=== PATIENT | female | born 1960 | race Hispanic/Latino ===

== ENCOUNTER 2021-11-09 13:51 | Inpatient (IN) | payer SELFPAY ==
--- NOTE | 2021-11-09 15:34 | RAD REPORT ---
EXAM DESCRIPTION: [place] Single View11/09/2021 3:22 pm CLINICAL HISTORY: Chest pain COMPARISON: 2007 FINDINGS: The upper lobe vessels are prominent indicative of pulmonary venous hypertension An area of subsegmental atelectasis mid left lung. The remainder of the lungs appear clear of acute infiltrate The heart is mildly enlarged
[2021-11-09] MEDS ORDERED: ASPIRIN 81 MG CHEWABLE TABLET ONE ×2 (15:40→16:04)
[2021-11-09 16:08] LABS: Protime INR 1.05
[2021-11-09 16:10] LABS: Absolute Lymphocytes (CBC) 1.6 K/uL (0.7-4.9); Hematocrit 32.4 % (36.0-45.0); Lymphocytes % 20.3 % (15.3-44.8); MCV 93.2 fL (80-100); MPV 8.6 fL (7.6-11.3); RBC Red Blood Cell Count 3.48 M/uL (3.86-4.86)
[2021-11-09 16:22] LABS: ALT/SGPT 18 U/L (12-78); AST/SGOT 11 U/L (15-37); Albumin 2.7 g/dL (3.4-5.0); Alkaline Phosphatase 146 U/L (45-117); BUN Blood Urea Nitrogen 60 mg/dL (7-18); Bicarbonate 24 mmol/L (21-32); Bilirubin Direct < 0.1 mg/dL (0-0.2); Bilirubin Total 0.3 mg/dL (0.2-1.0); Glomerular Filtration Rate 13 ml/min (=/>90); Glucose Level 237 mg/dL (74-106); Magnesium 2.4 mg/dL (1.8-2.4); NT PRO-BNP 15944 pg/mL (<125); Potassium 4.1 mmol/L (3.5-5.1); Protein, Total 6.9 g/dL (6.4-8.2); Sodium Level 137 mmol/L (136-145); Troponin High Sensitivity 25.5 pg/mL (<58.9)
--- NOTE | 2021-11-09 16:56 | EDPHYS ---
Physician Documentation [facility] Name: Magalis Haywood Age: 61 yrs Sex: Female : 1960 Arrival Date: 11/09/2021 Time: 13:53 Bed 10 Private MD: ED Physician Gen Nichols HPI: 11/09 14:20 This 61 yrs old Female presents to ER via Ambulatory with complaints of High jh7 Blood Pressure,chest pain, SOB, Shoulder Pain. 14:20 61-year-old female presents with left shoulder pain, intermittent chest pain, and jh7 shortness of breath progressing over the past week. The patient denies any heart problems, but says that she was told that her kidney function was at 11% in April and now takes Lasix. Also reports that she takes amlodipine and metoprolol for hypertension.. Historical: - Allergies: 14:17 No Known Allergies; tp1 - Home Meds: 14:17 insulin [Active]; amlodipine oral [Active]; Metaproterenol Sulfate Oral [Active]; tp1 - PMHx: 14:17 Diabetes mellitus; Hypertensive disorder; renal disease; tp1 - Immunization history:: Client reports receiving the 2nd dose of the Covid vaccine. - Social history:: Smoking status: Patient denies any tobacco usage or history of. ROS: 14:20 Constitutional: Negative for fever, chills, and weight loss, ENT: Negative for injury, jh7 pain, and discharge, Neck: Negative for injury, pain, and swelling, Abdomen/GI: Negative for abdominal pain, nausea, vomiting, diarrhea, and constipation, Back: Negative for injury and pain, Skin: Negative for injury, rash, and discoloration, Neuro: Negative for headache, weakness, numbness, tingling, and seizure. 14:20 Cardiovascular: Positive for chest pain. 14:20 Cardiovascular: Negative for palpitations. 14:20 Respiratory: Positive for 14:20 Respiratory: Positive for shortness of breath, Negative for cough. 14:20 MS/extremity: Positive for pain, Negative for injury or acute deformity. 14:20 All other systems are negative. Exam: 14:20 Constitutional: This is a well developed, well nourished patient who is awake, alert, jh7 and in no acute distress. Neck: Trachea midline, no thyromegaly or masses palpated, and no cervical lymphadenopathy. Supple, full range of motion without nuchal rigidity, or vertebral point tenderness. No Meningismus. Cardiovascular: Regular rate and rhythm with a normal S1 and S2. No gallops, murmurs, or rubs. Normal PMI, no JVD. No pulse deficits. Respiratory: Lungs have equal breath sounds bilaterally, clear to auscultation and percussion. No rales, rhonchi or wheezes noted. No increased work of breathing, no retractions or nasal flaring. Abdomen/GI: Soft, non-tender, with normal bowel sounds. No distension or tympany. No guarding or rebound. No evidence of tenderness throughout. Back: No spinal tenderness. No costovertebral tenderness. Full range of motion. Skin: Warm, dry with normal turgor. Normal color with no rashes, no lesions, and no evidence of cellulitis. Neuro: Awake and alert, GCS 15, oriented to person, place, time, and situation. Motor strength 5/5 in all extremities. Sensory grossly intact. Normal gait. Vital Signs: 14:17 BP 142 / 51; Pulse 66; Resp 16; Temp 98.1; Pulse Ox 100% on R/A; Weight 83.91 kg; Pain tp1 8/10; 15:59 BP 139 / 70; Pulse 66; Resp 18; Pulse Ox 97% on R/A; ld1 16:55 BP 137 / 67; Pulse 66; Resp 20; Pulse Ox 95% on R/A; eh3 17:41 BP 146 / 69; Pulse 63; Resp 18; Pulse Ox 95% on R/A; ld1 MDM: 15:33 Patient medically screened. [facility] 16:00 Differential diagnosis: CHF, acute VA, chronic renal failure. Data reviewed: vital [facility] signs, nurses notes, lab test result(s), EKG, radiologic studies, plain films. Data interpreted: Pulse oximetry: is 95 %. Interpretation: normal. Counseling: I had a detailed discussion with the patient and/or guardian regarding: the historical points, exam findings, and any diagnostic results supporting the discharge/admit diagnosis, the need for further work-up and treatment in the hospital. 16:00 ED course: Reviewed the patient's lab and imaging findings. Informed her that she would [facility] be admitted. Answered all questions discussed. Discussed case with Dr. Hawkins and nurse practitioner Antonio Villa. The patient will be admitted inpatient status.. 11/09 14:47 Order name: Basic Metabolic Panel; Complete Time: 16:40 [facility] 11/09 14:47 Order name: CBC with Diff; Complete Time: 16:40 [facility] 11/09 14:47 Order name: LFT's; Complete Time: 16:40 [facility] 11/09 14:47 Order name: Magnesium; Complete Time: 16:40 [facility] 11/09 14:47 Order name: NT PRO-BNP; Complete Time: 16:40 [facility] 11/09 14:47 Order name: PT-INR; Complete Time: 16:40 [facility] 11/09 14:47 Order name: Troponin HS; Complete Time: 16:40 [facility] 11/09 14:47 Order name: XRAY Chest (1 view); Complete Time: 15:47 [facility] 11/09 14:47 Order name: EKG; Complete Time: 14:48 [facility] 11/09 14:47 Order name: Cardiac monitoring; Complete Time: 15:56 [facility] 11/09 14:47 Order name: EKG - Nurse/Tech; Complete Time: 15:56 [facility] 11/09 14:47 Order name: IV Saline Lock; Complete Time: 15:56 [facility] 11/09 17:07 Order name: COVID-19 SARS RT PCR (Document "Date of Onset" if Symptomatic); Complete ss Time: 19:00 11/09 14:47 Order name: Labs collected and sent; Complete Time: 15:56 [facility] 11/09 14:47 Order name: O2 Per Protocol; Complete Time: 15:31 [facility] 11/09 14:47 Order name: O2 Sat Monitoring; Complete Time: 15:33 [facility] EC:44 Rhythm is regular. VA interval is normal. QRS interval is normal. No Q waves. T waves [facility] are Inverted in leads V4, V5, V6. Clinical impression: NSR w/ Non-specific ST/T Changes. Administered Medications: 15:22 Drug: Aspirin Chewable Tablet 324 mg Route: PO; 3 16:57 Follow up: Response: No adverse reaction 3 Disposition: 22:23 Co-signature as Attending Physician, Gen MCCANN was immediately available on-site ms3 in the Emergency Department for consultation in the care of the patient. . 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
--- NOTE | 2021-11-09 16:56 | ER ---
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 Visited clinic last week and today for should pain, while there clinic attempted to draw blood but was unsuccessful. clinic did not address shoulder pain due to inability to draw blood. stated blood work was needed for kidney function. Coronavirus screen: Vaccine status: Patient reports receiving the 2nd dose of the covid vaccine. Ebola Screen: Patient denies exposure to infectious person. Patient denies travel to an Ebola-affected area in the 21 days before illness onset. Initial Sepsis Screen: Does the patient meet any 2 criteria? No. Patient's initial sepsis screen is negative. Does the patient have a suspected source of infection? No. Patient's initial sepsis screen is negative. Risk Assessment: Do you want to hurt yourself or someone else? Patient reports no desire to harm self or others. Onset of symptoms was November 02, 2021. 14:11 Method Of Arrival: Ambulatory tp1 14:11 Acuity: MEI 4 tp1 14:17 Chief complaint:. tp1 Triage Assessment: 14:17 General: Appears in no apparent distress. uncomfortable, Behavior is calm, cooperative. tp1 Pain: Complains of pain in left side of neck and left shoulder Pain currently is 8 out of 10 on a pain scale. Quality of pain is described as sharp, Pain began a week. 14:21 Cardiovascular: Patient's skin is warm and dry. Chest pain is denied. Respiratory: tp1 Airway is patent Respiratory effort is even, unlabored. Historical: - Allergies: 14:17 No Known Allergies; tp1 - Home Meds: 14:17 insulin [Active]; amlodipine oral [Active]; Metaproterenol Sulfate Oral [Active]; tp1 - PMHx: 14:17 Diabetes mellitus; Hypertensive disorder; renal disease; tp1 - Immunization history:: Client reports receiving the 2nd dose of the Covid vaccine. - Social history:: Smoking status: Patient denies any tobacco usage or history of. Screenin:58 Abuse screen: Denies threats or abuse. Denies injuries from another. Nutritional ld1 screening: No deficits noted. Tuberculosis screening: No symptoms or risk factors identified. Fall Risk None identified. Assessment: 15:58 General: Appears in no apparent distress. comfortable, Behavior is calm, cooperative, ld1 appropriate for age. Pain: Complains of pain in left scapular area and anterior aspect of left upper chest Pain does not radiate. Pain currently is 6 out of 10 on a pain scale. Quality of pain is described as pressure, throbbing, Pain began 3 hours ago. Is intermittent. Neuro: Level of Consciousness is awake, alert, obeys commands, Oriented to person, place, time, situation. Cardiovascular: Capillary refill < 3 seconds Patient's skin is warm and dry. Rhythm is sinus rhythm. Respiratory: Airway is patent Respiratory effort is even, unlabored. GI: Abdomen is round non-distended. : No signs and/or symptoms were reported regarding the genitourinary system. EENT: No signs and/or symptoms were reported regarding the EENT system. Derm: No signs and/or symptoms reported regarding the dermatologic system. Musculoskeletal: No signs and/or symptoms reported regarding the musculoskeletal system. Vital Signs: 14:17 BP 142 / 51; Pulse 66; Resp 16; Temp 98.1; Pulse Ox 100% on R/A; Weight 83.91 kg; Pain tp1 8/10; 15:59 BP 139 / 70; Pulse 66; Resp 18; Pulse Ox 97% on R/A; ld1 16:55 BP 137 / 67; Pulse 66; Resp 20; Pulse Ox 95% on R/A; eh3 17:41 BP 146 / 69; Pulse 63; Resp 18; Pulse Ox 95% on R/A; ld1 ED Course: 13:53 Patient arrived in ED. mr 14:17 Triage completed. tp1 14:19 Charissa Shah FNP is PHCP. jh7 14:19 Gen Nichols DO is Attending Physician. jh7 15:24 XRAY Chest (1 view) In Process Unspecified. EDMS 15:33 Kia Mayorga is Primary Nurse. eh3 15:56 Inserted saline lock: 20 gauge in right upper arm, using aseptic technique. Blood eh3 collected. 15:58 No provider procedures requiring assistance completed. ld1 15:58 Patient has correct armband on for positive identification. Placed in gown. Bed in low ld1 position. Call light in reach. Side rails up X2. alarm security or surveillance monitor on. Pulse ox on. NIBP on. Door closed. Noise minimized. Warm blanket given. 16:54 Thai Amos MD is Hospitalizing Provider. [facility] 17:44 COVID-19 SARS RT PCR (Document "Date of Onset" if Symptomatic) Sent. ld1 20:59 Patient admitted, IV remains in place. ld1 20:59 Arm band placed on right wrist. ld1 Administered Medications: 15:22 Drug: Aspirin Chewable Tablet 324 mg Route: PO; eh3 16:57 Follow up: Response: No adverse reaction eh3 Medication: 15:58 VIS not applicable for this client. ld1 Outcome: 16:55 Decision to Hospitalize by Provider. jh7 20:58 Admitted to Med/surg accompanied by tech, via wheelchair, room 205. ld1 20:58 Condition: stable 20:58 Discharge instructions given to patient, Instructed on the need for admit. 21:25 Patient left the ED. ld1 Signatures: Dispatcher [employer] DUNIAHI SkinnerGloria blanco Lauren, RN RN ld1 Juli Brown tp1 Kia Mayorga eh3 Charissa Shah, [employer] SPECIALIST 7 Corrections: (The following items were deleted from the chart) 14:20 14:11 Chief complaint: Patient states: sharp pain in right side of neck that radiates tp1 to should that started 1 week ago. Visited clinic last week and today for should pain, while there clinic attempted to draw blood but was unsuccessful. tp1 14:22 14:11 Chief complaint: Patient states: sharp pain in right side of neck that radiates tp1 to should that started 1 week ago. Visited clinic last week and today for should pain, while there clinic attempted to draw blood but was unsuccessful. clinic did not address shoulder pain due to inability to draw blood. stated blood work was needed for kidney function. tp1
--- NOTE | 2021-11-09 20:08 | P.HP ---
Certification for Inpatient Patient admitted to: Inpatient With expected LOS: >2 Midnights Patient will require the following post-hospital care: None Practitioner: I am a practitioner with admitting privileges, knowledge of patient current condition, hospital course, and medical plan of care. Services: Services provided to patient in accordance with Admission requirements found in Title 42 Section 412.3 of the Code of Federal Regulations <Antonio Villa - Last Filed: 11/09/21 20:03> Patient History Date of Service: 11/09/21 Reason for admission: Chest pain, CHF History of Present Illness: 61-year-old female with history of CKD, hypertension presented to the emergency department for left-sided chest/back pain, shortness of breath. She reports that she has been having intermittent sharp pain to her left chest wall/left back for the last 4 to 5 days as well as some intermittent shortness of breath. She reports knowing that she has chronic kidney disease but is unaware of her baseline renal function we have no labs available for comparison here but she did report that she thinks her kidneys function at "about 11%". Patient does not follow with nephrology outpatient, she was evaluated by a physician in [place] for chronic kidney disease. She reports that in April she was placed on Lasix twice daily at an unknown dose for "fluid in her lungs". She denies ever knowing about the diagnosis of congestive heart failure or any cardiac issues. She was evaluated in the emergency department her labs were significant for a creatinine of 3.88 a GFR of 13 glucose 237 BUN of 60 her BNP was significantly elevated at 15,944 chest x-ray demonstrates that the upper lobe vessels are prominent indicative of pulmonary venous hypertension, also an area of subsegmental atelectasis in the left midlung, mild cardiomegaly. Patient with mild nonpitting edema of lower extremities she does report that she has noticed an increase in swelling over the course of the last few days. ED provider wishes to admit for further evaluation and management of suspected CHF exacerbation/chest pain/CKD versus ARF/JUAN. - Past Medical/Surgical History -: CKD -: Hypertension -: Diabetes type 2insulin-dependent -: Appendectomy -: Cholecystectomy -: Psychosocial/ Personal History: Patient lives at home with her family - Family History Father -: Hypertension - Social History Smoking Status: Never smoker Alcohol use: No CD- Drugs: No Caffeine use: Yes Place of Residence: Home <Antonio Villa - Last Filed: 11/09/21 20:03> Date of Service: 11/10/21 <Thai Amos - Last Filed: 11/10/21 16:21> Review of Systems 10-point ROS is otherwise unremarkable Respiratory: Shortness of Breath Cardiovascular: Chest Pain, Edema, As per HPI <Antonio Villa - Last Filed: 11/09/21 20:03> Physical Examination - Physical Exam General: Alert, In no apparent distress, Oriented x3 HEENT: Atraumatic, PERRLA, Mucous membr. moist/pink, EOMI, Sclerae nonicteric Neck: Supple, 2+ carotid pulse no bruit, No LAD, Without JVD or thyroid abnormality Respiratory: Normal air movement, Diminished Cardiovascular: Regular rate/rhythm, Normal S1 S2, Edema (Trace edema lower extremities) Capillary refill: <2 Seconds Gastrointestinal: Normal bowel sounds, No tenderness Musculoskeletal: No tenderness Integumentary: No rashes Neurological: Normal speech, Normal strength at 5/5 x4 extr, Normal tone, Normal affect - Studies Laboratory Data (last 24 hrs) 11/09/21 15:55: PT 11.6, INR 1.05 11/09/21 15:55: WBC 7.9, Hgb 11.1 L, Hct 32.4 L, Plt Count 229 11/09/21 15:55: Sodium 137, Potassium 4.1, BUN 60 H, Creatinine 3.88 H, Glucose 237 H, Magnesium 2.4, Total Bilirubin 0.3, AST 11 L, ALT 18, Alkaline Phosphatase 146 H <Antonio Villa - Last Filed: 11/09/21 20:03> - Studies Laboratory Data (last 24 hrs) 11/09/21 15:55: Sodium 137, Potassium 4.1, BUN 60 H, Creatinine 3.88 H, Glucose 237 H, Magnesium 2.4, Total Bilirubin 0.3, AST 11 L, ALT 18, Alkaline Phosphatase 146 H <Thai Amos - Last Filed: 11/10/21 16:21> Assessment and Plan - Plan Assessment: Chest pain rule out ACS Suspected CHF exacerbationunknown EF CKD 5 versus ARF/JUAN Diabetes mellitus type 2insulin-dependent Hypertension Plan: Chest pain rule out ACS: Trend troponins, monitor on telemetry, echocardiogram ordered to evaluate EF given suspected CHF exacerbation/elevated BNP/cardiomegaly on chest x-ray. Cardiology consulted. Continue with aspirin, statin, beta-yasmine therapy. Suspected CHF exacerbationunknown EF: Echocardiogram ordered, cardiology consulted continue with gentle diuresis at this time. CKD 5 versus ARF/JUAN: Nephrology consulted, renal ultrasound to be obtained, no labs available for comparison but patient reports that her kidney function was " 11%". She denies any NSAID use or recent antibiotic/contrast exposure. Appreciate further input from nephrology. Diabetes mellitus type 2insulin-dependent: ACH S Accu-Chek, sliding scale insulin, restart patient's home dose of insulin when confirmed. Hypertension: Continue home medications, patient takes amlodipine and metoprolol but she is unaware of the doses. We will need to confirm when available. DVT PPX: Heparin Code status: Full Discharge Plan: Home Plan to discharge in: 48 Hours - Advance Directives Does patient have a Living Will: No Does patient have a Durable POA for Healthcare: No - Code Status/Comfort Care Code Status Assessed: Yes (Full code) Critical Care: No Time Spent Managing Pts Care (In Minutes): 70 <Antonio Villa - Last Filed: 11/09/21 20:03> Physician Review Additional Text: I have personally seen and evaluated Ms. Marcella Haywood. I reviewed the notes and assessments performed by Antonio Villa NP. I independently performed my own history and physical examination. I agree with the assessment and plan as outlined in his note. I concur with his documentation of Ms. Haywood. <Thai Amos - Last Filed: 11/10/21 16:21>
[2021-11-09] MEDS ORDERED: HYDROCODONE/APAP 5/325 MG TAB PO PRN (21:32)
[2021-11-09] MEDS ORDERED: ONDANSETRON 4 MG/2 ML VIAL IV PRN (21:32)
[2021-11-09] MEDS: INSULIN -REGULAR HUMAN 50 UNIT/0.5 ML ML SQ SCH (21:32)
[2021-11-09] MEDS ORDERED: ACETAMINOPHEN 500 MG TAB PO PRN (21:32)
--- NOTE | 2021-11-09 22:24 | P.CNS ---
Date of Consult: 11/09/21 Reason for Consult: JUAN/ CKD Requesting Physician: Thai Amos Chief Complaint: Chest pain, CHF History of Present Illness: 61-year-old female with history of CKD, hypertension presented to the emergency department for left-sided chest/back pain, shortness of breath. She reports that she has been having intermittent sharp pain to her left chest wall/left back for the last 4 to 5 days as well as some intermittent shortness of breath. She reports knowing that she has chronic kidney disease but is unaware of her baseline renal function we have no labs available for comparison here but she did report that she thinks her kidneys function at "about 11%". Patient does not follow with nephrology outpatient, she was evaluated by a physician in [place] for chronic kidney disease. She reports that in April she was placed on Lasix twice daily at an unknown dose for "fluid in her lungs". She denies ever knowing about the diagnosis of congestive heart failure or any cardiac issues. She was evaluated in the emergency department her labs were significant for a creatinine of 3.88 a GFR of 13 glucose 237 BUN of 60 her BNP was significantly elevated at 15,944 chest x-ray demonstrates that the upper lobe vessels are prominent indicative of pulmonary venous hypertension, also an area of subsegmental atelectasis in the left midlung, mild cardiomegaly. Patient with mild nonpitting edema of lower extremities she does report that she has noticed an increase in swelling over the course of the last few days. ED provider wishes to admit for further evaluation and management of suspected CHF exacerbation/chest pain/CKD versus ARF/JUAN. She reports being told by a physician in [place] that she may need dialysis soon. She denies NSAIDs or any difficulty with urination. 14:20 This 61 yrs old Female presents to ER via Ambulatory with complaints of High jh7 Blood Pressure,chest pain, SOB, Shoulder Pain. 14:20 61-year-old female presents with left shoulder pain, intermittent chest pain, and jh7 shortness of breath progressing over the past week. The patient denies any heart problems, but says that she was told that her kidney function was at 11% in April and now takes Lasix. Also reports that she takes amlodipine and metoprolol for hypertension.. Allergies No Known Allergies Allergy (Verified 11/09/21 22:46) Home Medications: Amlodipine [Norvasc] 5 mg PO BID 11/09/21 Furosemide 40 mg PO BID 11/09/21 Insulin Glargine,Hum.rec.anlog [Lantus] 22 unit SQ BEDTIME 11/09/21 Metoprolol Tartrate 100 mg PO BID 11/09/21 - Past Medical/Surgical History -: CKD -: Hypertension -: Diabetes type 2insulin-dependent -: Appendectomy -: Cholecystectomy -: Psychosocial/ Personal History: Patient lives at home with her family - Family History Father Medical History: Hypertension - Social History Alcohol use: No CD- Drugs: No Caffeine use: Yes Place of Residence: Home Review of Systems 10-point ROS is otherwise unremarkable General: Weakness Respiratory: SOB with Excertion Physical Examination Temp Pulse Resp BP Pulse Ox 97.4 F 70 16 140/67 92 11/09/21 22:13 11/09/21 22:13 11/09/21 22:13 11/09/21 22:13 11/09/21 22:13 General: In no apparent distress, Oriented x3, Cooperative HEENT: Atraumatic Neck: Supple Respiratory: Normal air movement Cardiovascular: No edema, Regular rate/rhythm Gastrointestinal: Soft and benign, Non-distended Musculoskeletal: No clubbing, No contractures Integumentary: No rashes, No cyanosis Neurological: Normal speech Laboratory Data (last 24 hrs) 11/09/21 15:55: PT 11.6, INR 1.05 11/09/21 15:55: WBC 7.9, Hgb 11.1 L, Hct 32.4 L, Plt Count 229 11/09/21 15:55: Sodium 137, Potassium 4.1, BUN 60 H, Creatinine 3.88 H, Glucose 237 H, Magnesium 2.4, Total Bilirubin 0.3, AST 11 L, ALT 18, Alkaline Phosphatase 146 H Imagings Data: EXAM DESCRIPTION: [place] Single View11/09/2021 3:22 pm CLINICAL HISTORY: Chest pain COMPARISON: 2007 FINDINGS: The upper lobe vessels are prominent indicative of pulmonary venous hypertension An area of subsegmental atelectasis mid left lung. The remainder of the lungs appear clear of acute infiltrate The heart is mildly enlarged LEFT VENTRICULAR WALL MOTION: MILD GLOBAL HYPOKINESIS. ANTERIOR WALL HYPOKINESIS. DOPPLER/COLOR FLOW: SEE BELOW COMMENTS: MILDLY DEPRESSED LEFT VENTRICULAR EJECTION FRACTION 40-45%. MILD ANTERIOR WALL HYPOKINESIS. LEFT ATRIAL ENLARGEMENT. MILD TRICUSPID AND MITRAL REGURGITATION. MODERATE PULMONARY REGURGITATION. MODERATE DIASTOLIC DYSFUNCTION. EXAM DESCRIPTION: US - Renal Ultrasound-Complete - 11/10/2021 12:36 am CLINICAL HISTORY: Acute renal failure/chronic renal failure COMPARISON: None. FINDINGS: The right kidney measures 10 cm with a normal echotexture The left kidney measures 10 cm with a normal echotexture Hydronephrosis is not seen. 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 No uremic symptoms. -May benefit from JUAN ANTONIO/ARB due to proteinuria HTN with CKD/ CHF -Increase Amlodipine -Continue Metoprolol -Consider JUAN ANTONIO/ARB therapy Systolic Diastolic CHF, A/C Pulmonary HTN -Continue Furosemide BID -Echocardiogram reviewed DM II with CKD A1C 7.5 -RISS Moderate malnutrition -Renal diet Anemia in chronic illness -Monitor H&H -Retacrit PRN CKD MBD -Start Vitamin D Thank you kindly for the referral.
[2021-11-09] MEDS: HEPARIN 5000 UNIT/ML 1 ML VIAL SQ SCH (22:29)
[2021-11-09] MEDS: ATORVASTATIN 40 MG TAB PO SCH (22:29)
[2021-11-09 23:17] LABS: UR PROTEIN 304.8 mg/dL (<11.9); Urine Protein/Creatinine Ratio 12.19 ratio (<0.15)
[2021-11-09 23:20] LABS: Specific Gravity 1.015 (1.005-1.030); Urine Bilirubin Negative (Negative); Urine Blood 1+ (Negative); Urine Clarity Clear (Clear); Urine Color Yellow (Yellow); Urine Glucose Trace (Negative); Urine Protein 3+ (Negative); Urine Urobilinogen 0.2 mg/dL (0.2-1.0); Urine pH 6.5 (5.0-7.0)
[2021-11-09 23:50] LABS: Urine Bacteria <20 /HPF (<20); Urine RBC <5 /HPF (None Seen)
[2021-11-10] MEDS: METOPROLOL TAR 25 MG TAB PO SCH ×2 (05:39→16:53)
[2021-11-10 05:44] LABS: Absolute Lymphocytes (CBC) 1.3 K/uL (0.7-4.9); Hematocrit 33.3 % (36.0-45.0); Lymphocytes % 15.4 % (15.3-44.8); MPV 8.8 fL (7.6-11.3); RBC Red Blood Cell Count 3.54 M/uL (3.86-4.86)
[2021-11-10 05:47] VITALS: BMI 34.8
[2021-11-10 06:07] LABS: Albumin 2.6 g/dL (3.4-5.0); Bilirubin Total 0.3 mg/dL (0.2-1.0); Phosphorus 5.2 mg/dL (2.5-4.9); Potassium 4.2 mmol/L (3.5-5.1); Protein, Total 6.7 g/dL (6.4-8.2); Thyroid Stimulating Hormone 2.13 uIU/mL (0.360-3.740); Troponin High Sensitivity 22.4 pg/mL (<58.9); Uric Acid 8.7 mg/dL (2.6-6.0)
[2021-11-10] MEDS: INSULIN -REGULAR HUMAN 50 UNIT/0.5 ML ML SQ SCH ×4 (07:30→20:43)
--- NOTE | 2021-11-10 07:49 | RAD REPORT ---
EXAM DESCRIPTION: US - Renal Ultrasound-Complete - 11/10/2021 12:36 am CLINICAL HISTORY: Acute renal failure/chronic renal failure COMPARISON: None. FINDINGS: The right kidney measures 10 cm with a normal echotexture The left kidney measures 10 cm with a normal echotexture Hydronephrosis is not seen. No gross abnormality of bladder is noted IMPRESSION: Negative for hydronephrosis
--- NOTE | 2021-11-10 08:16 | EKG ---
Test Date: 2021-11-09 Test Time: 15:38:19 White Hat Hacker: MADDY MEASUREMENT RESULTS: Intervals: Rate: 67 MT: 162 QRSD: 102 QT: 430 QTc: 454 [place]: P: 42 MT: 162 QRS: -37 T: 232 INTERPRETIVE STATEMENTS: Normal sinus rhythm Left axis deviation Minimal voltage criteria for LVH, may be normal variant ST & T wave abnormality, consider inferolateral ischemia Abnormal ECG No previous ECG available for comparison Electronically Signed On 11-10-21 08:12:42 CDT by Mauro Mckee
[2021-11-10] MEDS ORDERED: AMLODIPINE 5 MG TAB PO SCH (09:00)
[2021-11-10] MEDS: FUROSEMIDE 20 MG/ 2ML VIAL IV SCH ×2 (09:43→16:43)
[2021-11-10] MEDS: VITAMIN D 5,000 UNIT CAP PO SCH (09:43)
[2021-11-10] MEDS: ASPIRIN EC 81 MG TAB PO SCH (09:43)
[2021-11-10] MEDS: DOCUSATE NA 100 MG CAP PO SCH ×2 (09:43→20:42)
[2021-11-10] MEDS: HEPARIN 5000 UNIT/ML 1 ML VIAL SQ SCH ×2 (09:44→20:42)
--- NOTE | 2021-11-10 14:19 | ECHO ---
HEIGHT: 5 ft 1 in WEIGHT: 184 lb 3.2 oz DATE OF STUDY: 11/10/[address]: Antonio Villa NP 2-DIMENSIONAL: YES M.MODE: YES DOPPLER: YES COLOR FLOW: YES TDS: NO PORTABLE: YES DEFINITY: NO BUBBLE STUDY: NO DIAGNOSIS: CONGESTIVE HEART FAILURE CARDIAC HISTORY: CATHERIZATION: SURGERY: PROSTHETIC VALVE: PACEMAKER: MEASUREMENTS (cm) DIASTOLIC (NORMALS) SYSTOLIC (NORMALS) IVSd 1.0 (0.6-1.2) LA Diam 4.1 (1.9-4.0) LVEF 45% LVIDd 6.6 (3.5-5.7) LVIDs 5.0 (2.0-3.5) %FS 24% LVPWd 1.1 (0.6-1.2) Ao Diam 2.5 (2.0-3.7) 2 DIMENSIONAL ASSESSMENT: RIGHT ATRIUM: NORMAL LEFT ATRIUM: ENLARGED RIGHT VENTRICLE: NORMAL LEFT VENTRICLE: SEVERELY DILATED TRICUSPID VALVE: MITRAL VALVE: PULMONIC VALVE: AORTIC VALVE: NORMAL PERICARDIAL EFFUSION: NONE AORTIC ROOT: NORMAL LEFT VENTRICULAR WALL MOTION: MILD GLOBAL HYPOKINESIS. ANTERIOR WALL HYPOKINESIS. DOPPLER/COLOR FLOW: SEE BELOW COMMENTS: MILDLY DEPRESSED LEFT VENTRICULAR EJECTION FRACTION 40-45%. MILD ANTERIOR WALL HYPOKINESIS. LEFT ATRIAL ENLARGEMENT. MILD TRICUSPID AND MITRAL REGURGITATION. MODERATE PULMONARY REGURGITATION. MODERATE DIASTOLIC DYSFUNCTION. TECHNOLOGIST: Joy CARDENAS
--- NOTE | 2021-11-10 16:27 | P.PN ---
Subjective Date of Service: 11/10/21 Chief Complaint: Chest pain, CHF Ms. Marcella Haywood is Bolivian-speaking only. The following history was obtained with the assistance of [employer] certified [place]-Citizen Of [place] rn neonatal icu, Mili Alex CarlotnMili, (ID# [id number]). No acute events since admission. She reports that she feels okay overall. She endorses generalized weakness. Her chest pain has improved since admission. She denies any specific complaints at this time. Review of Systems General: Weakness Eyes: Unremarkable ENT: Unremarkable Respiratory: Unremarkable Cardiovascular: Unremarkable Gastrointestinal: Unremarkable Genitourinary: Unremarkable Musculoskeletal: Unremarkable Integumentary: Unremarkable Neurological: Unremarkable Physical Examination - Vital Signs Temperature: 97.2 F Blood Pressure: 182/79 Pulse: 75 Respirations: 18 Pulse Ox (%): 93 - Physical Exam General: Alert, In no apparent distress, Oriented x3 HEENT: Atraumatic, Mucous membr. moist/pink, EOMI, Sclerae nonicteric Neck: Supple, JVD not distended Respiratory: Clear to auscultation bilaterally, Normal air movement, Diminished Cardiovascular: Regular rate/rhythm, Normal S1 S2, No gallops, No rubs, No murmurs Gastrointestinal: Normal bowel sounds, Soft and benign, Non-distended, No tenderness, No rebound, No guarding Musculoskeletal: No clubbing Integumentary: No rashes Neurological: Normal gait, Normal affect - Studies Laboratory Data (last 24 hrs) 11/09/21 15:55: Sodium 137, Potassium 4.1, BUN 60 H, Creatinine 3.88 H, Glucose 237 H, Magnesium 2.4, Total Bilirubin 0.3, AST 11 L, ALT 18, Alkaline Phosphatase 146 H Medications List Reviewed: Yes Assessment And Plan - Plan # Acute Decompensated Combined Systolic/Diastolic Congestive Heart Failure with Reduced Ejection Fraction (LVEF 40-45 %) # Pulmonary Hypertension # Moderate Pulmonary Regurgitation - Consult Cardiology and spoke with Dr. Mckee - recommendations appreciated - Transthoracic echocardiogram = "mildly depressed left ventricular ejection fraction 40-45%. mild anterior wall hypokinesis. left atrial enlargement. mild tricuspid and mitral regurgitation. moderate pulmonary regurgitation. moderate diastolic dysfunction." - Diuresis with IV furosemide for today - EKG: currently unavailable - review once available - Serial troponin: 25.5 -> 23.7 -> 22.4 - NT-Pro BNP: 15,944 - CXR: "the upper lobe vessels are prominent indicative of pulmonary venous hypertension. An area of subsegmental atelectasis mid left lung. The remainder of the lungs appear clear of acute infiltrate. The heart is mildly enlarged." - Continue home metoprolol - Daily weights - Strict I/O - Cardiac diet, 2 L fluid restriction, 2 g Na restriction # Elevated Creatinine - Acute Kidney Injury vs Chronic Kidney Disease Stage V - Nephrology consulted - recommendations appreciated - Creatinine = 3.88 (baseline creatinine unknown) - Urinalysis = 1+ blood, 3+ protein, <5 RBCs - Renal ultrasound = "negative for hydronephrosis" - Monitor creatinine and urine output - Renally dose medications # Hyperglycemia in Type II Diabetes Mellitus - Hgb A1c = 7.5 % - Correction scale insulin # Hypertension - Continue metoprolol, amlodipine, furosemide Thai Amos MD Discharge Plan: Home Plan to discharge in: Unknown
[2021-11-10] MEDS: ATORVASTATIN 40 MG TAB PO SCH (20:43)
[2021-11-10 22:44] VITALS: O2SAT 96
[2021-11-11 05:50] LABS: Absolute Lymphocytes (CBC) 1.4 K/uL (0.7-4.9); Hematocrit 32.7 % (36.0-45.0); Lymphocytes % 16.6 % (15.3-44.8); MCV 93.1 fL (80-100); MPV 9.1 fL (7.6-11.3); RBC Red Blood Cell Count 3.51 M/uL (3.86-4.86)
[2021-11-11] MEDS: METOPROLOL TAR 25 MG TAB PO SCH (05:57)
[2021-11-11 06:09] LABS: Albumin 2.8 g/dL (3.4-5.0); Bilirubin Total 0.4 mg/dL (0.2-1.0); Potassium 3.9 mmol/L (3.5-5.1); Protein, Total 6.8 g/dL (6.4-8.2)
[2021-11-11] MEDS: INSULIN -REGULAR HUMAN 50 UNIT/0.5 ML ML SQ SCH ×2 (07:30→11:30)
[2021-11-11] MEDS ORDERED: HYDRALAZINE HCL 25 MG TABLET PO SCH (09:00)
[2021-11-11] MEDS: HEPARIN 5000 UNIT/ML 1 ML VIAL SQ SCH (09:00)
[2021-11-11] MEDS: VITAMIN D 5,000 UNIT CAP PO SCH (09:00)
[2021-11-11] MEDS: DOCUSATE NA 100 MG CAP PO SCH (09:00)
[2021-11-11] MEDS: FUROSEMIDE 20 MG/ 2ML VIAL IV SCH (09:00)
[2021-11-11] MEDS ORDERED: AMLODIPINE 10 MG TAB PO SCH (09:00)
[2021-11-11] MEDS: ASPIRIN EC 81 MG TAB PO SCH (09:00)
--- NOTE | 2021-11-11 09:49 | CON ---
Date of Consultation: 11/10/2021 Reason For Consultation: Congestive heart failure, chest pain, and hypertension. History Of Present Illness: Ms. Haywood is 61, non-Greenlandic speaking. Has a history of diabetes, hype rtension, and coronary artery disease in the past. She came in really mostly with shortness of breat h. She did have some shortness of breath with exertion. Denied any PND, orthopnea, and had some ped al edema. Denied any palpitation. Denied any syncope. Her chest pain was described as tightness. Had no nausea, vomiting, diaphoresis. Denied any fever or chills. Past Medical History: As stated above. Allergies: NONE. Review of Systems: Negative. Social History: Negative. Family History: Noncontributory. Medications: At home include Lasix 40 mg b.i.d., amlodipine, metoprolol, insulin. Physical Examination: General: She appears to be very pleasant, in no acute distress. Vital Signs: Stable. She was afebrile. She was in sinus rhythm. HEENT: Negative. Neck: Supple without any bruit, lymphadenopathy, JVD, or thyromegaly. Chest: Reveals some rales in both bases. Cardiac: Revealed a regular rhythm and rate with S4 gallops. No murmurs or rubs. Abdomen: Benign. Extremities: Revealed 1+ edema to the knee. Diagnostic Data: Creatinine 3.75. BNP was 15,944. Troponin was negative. Glucose was 117. Impression And Plan: Acute congestive heart failure, most likely diastolic. Echocardiogram is pendi ng. Patient presently is on Norvasc, aspirin, Lipitor, Lasix, heparin, and metoprolol and I agree wi th that regimen. She is not a candidate for JUAN ANTONIO inhibitors. We will see what her echo shows before making decision. She will need an outpatient Lexiscan eventually to rule out coronary artery disease . Her diabetes is fairly well controlled. Blood pressure has improved since she has been here. Her main problem, I believe, is the kidneys. Nephrology is involved in her care. I will continue to fo flip. MICHELA/PATTIE Voice ID: [id number] Report ID: [id number]
--- NOTE | 2021-11-11 10:49 | P.PN ---
Date of Service: 11/11/21 (S) Spoke to pt using Albanian language line, case discussed with Dr. Amos who was also at bedside, discharge meds and plans for f/u discussed in detail. Pt has no acute complaints General: In no apparent distress, Oriented x3, Cooperative HEENT: Atraumatic Neck: Supple Respiratory: Normal air movement, b/l air entry Cardiovascular: No edema, Regular rate/rhythm Gastrointestinal: Soft and benign, Non-distended Musculoskeletal: No clubbing, No contractures Integumentary: No rashes, No cyanosis Neurological: Normal speech, non focal Labs reviewed in EMR Imagings Data: EXAM DESCRIPTION: US - Renal Ultrasound-Complete - 11/10/2021 12:36 am CLINICAL HISTORY: Acute renal failure/chronic renal failure COMPARISON: None. FINDINGS: The right kidney measures 10 cm with a normal echotexture The left kidney measures 10 cm with a normal echotexture Hydronephrosis is not seen. No gross abnormality of bladder is noted IMPRESSION: Negative for hydronephrosis Conclusions/Impression: Probable progressive CKD CKD V with proteinuria likely 2nd to DM nephropathy, with heavy proteinuria there can sometime be superimposed ARF due to ATN Nephrotic Syndrome -Renal US reviewed -No urgent indication for HD yet, but will need close OP fu -May benefit from JUAN ANTONIO/ARB to delay onset of HD but will assess that as an OP HTN with CKD/ CHF -Increased Amlodipine, added Hydralazine -Continue Metoprolol -Target BP < 130/80 per KDIGO Systolic Diastolic CHF, A/C Pulmonary HTN -Continue Furosemide, switch to PO -Echocardiogram reviewed Dagoberto Cotto MD, [facility]
[2021-11-11 11:49] LABS: Urine Bilirubin Negative (Negative); Urine Blood 1+ (Negative); Urine Clarity Clear (Clear); Urine Color Yellow (Yellow); Urine Glucose 1+ (Negative); Urine Protein 3+ (Negative); Urine Urobilinogen 0.2 mg/dL (0.2-1.0)
--- NOTE | 2021-11-11 12:03 | P.DS ---
Admission Date: 11/09/21 Discharge Date: 11/11/21 Disposition: ROUTINE DISCHARGE Discharge Condition: GOOD Reason for Admission: Chest pain, CHF Consultations: 1. Nephrology 2. Cardiology Hospital Course: DIAGNOSES: # Acute Decompensated Combined Systolic/Diastolic Congestive Heart Failure with Reduced Ejection Fraction (LVEF 40-45 %) # Pulmonary Hypertension # Moderate Pulmonary Regurgitation # Chronic Kidney Disease Stage V # Hyperglycemia in Type II Diabetes Mellitus # Hypertension HOSPITAL COURSE: Ms. Marcella Haywood is Israeli-speaking only. The following discharge instructions were communicated with the assistance of [employer] certified Israeli-Armenian interpreter deaf, Mili Melyssa, (ID# [id number]). Ms. Marcella Haywood is a pleasant 61 year old female with a past medical history significant for chronic congestive heart failure with reduced ejection fraction, chronic kidney disease stage V, type II diabetes mellitus, and hypertension who was admitted to the [facility] on 11/09/2021 for chest/back pain and shortness of breath. Upon evaluation, her lab studies were notable for a creatinine of 3.88 and a NTPro BNP of 15,944. She was found to be in acute congestive heart failure exacerbation. Cardiology and Nephrology were consulted on her case. Further evaluation was notable for serial troponin of 25.5 -> 23.7 -> 22.4 and a chest x-ray noting, "the upper lobe vessels are prominent indicative of pulmonary venous hypertension. An area of subsegmental atelectasis mid left lung. The remainder of the lungs appear clear of acute infiltrate. The heart is mildly enlarged." A transthoracic echocardiogram revealed, "mildly depressed left ventricular ejection fraction 40-45%. mild anterior wall hypokinesis. left atrial enlargement. mild tricuspid and mitral regurgitation. moderate pulmonary regurgitation. moderate diastolic dysfunction." In regards to her kidneys, she head a renal ultrasound, which was "negative for hydronephrosis." She was treated with IV furosemide, with significant improvement of her symptoms. Following discussion with Dr. Cotto (Nephrology), it is felt that this creatinine is likely her baseline He feels that she is safe for discharge with prescriptions for furosemide 40 mg daily, hydralazine 25 mg twice daily, amlodipine 10 mg daily, and metoprolol 25 mg twice daily. He recommends a f ollow-up appointment with Dr. Ross in 1 week and provided her with a business card including his office address and phone number. I have also reviewed her case with Dr. Mckee (Cardiology), who agrees that she is safe for discharge. He would like to see her in his clinic in about 1 week to schedule an outpatient stress test +/- cardiac catheterization. Of note, I had a detailed conversation with her regarding the possibility of hemodialysis for volume removal in the setting of her advanced kidney disease. She stated that she is not interested in dialysis at this time. On 11/11/2021, she was seen on morning rounds and deemed medically stable for discharge. She was discharged with instructions to schedule follow-up appointments with her PCP in 3-5 days, cardiology in 1 week, and nephrology in 1 week. She was provided prescriptions for furosemide, hydralazine, amlodipine, and metoprolol. She was given the opportunity to ask questions and reported no further questions. Furthermore, all questions were answered to the best of my ability. Today, I personally spent 40 minutes on her case, of which greater than 50% of the time was spent in patient education, counseling, and coordination of care as described above. PHYSICAL EXAMINATION General: Alert, In no apparent distress, Oriented x3 HEENT: Atraumatic, Mucous membr. moist/pink, EOMI, Sclerae nonicteric Neck: Supple, JVD not distended Respiratory: Clear to auscultation bilaterally, Normal air movement, Diminished Cardiovascular: Regular rate/rhythm, Normal S1 S2, No gallops, No rubs, No murmurs Gastrointestinal: Normal bowel sounds, Soft and benign, Non-distended, No tenderness, No rebound, No guarding Musculoskeletal: No clubbing, Trace bilateral edema Integumentary: No rashes Neurological: Normal gait, Normal affect Vital Signs/Physical Exam: Temp Pulse Resp BP Pulse Ox 97.3 F 70 18 187/80 H 94 11/11/21 08:00 11/11/21 08:00 11/11/21 08:00 11/11/21 08:00 11/11/21 08:00 Laboratory Data at Discharge: WBC 8.2 K/uL (4.3-10.9) 11/11/21 05:30 Hgb 11.0 g/dL (12.0-15.0) L 11/11/21 05:30 Hct 32.7 % (36.0-45.0) L 11/11/21 05:30 Plt Count 232 K/uL (152-406) 11/11/21 05:30 PT 11.6 SECONDS (9.5-12.5) 11/09/21 15:55 INR 1.05 11/09/21 15:55 Sodium 140 mmol/L (136-145) 11/11/21 05:30 Potassium 3.9 mmol/L (3.5-5.1) 11/11/21 05:30 BUN 56 mg/dL (7-18) H 11/11/21 05:30 Creatinine 3.77 mg/dL (0.55-1.3) H 11/11/21 05:30 Glucose 156 mg/dL (74-106) H 11/11/21 05:30 Uric Acid 8.7 mg/dL (2.6-6.0) H 11/10/21 05:23 Phosphorus 5.2 mg/dL (2.5-4.9) H 11/10/21 05:23 Magnesium 2.4 mg/dL (1.8-2.4) 11/09/21 15:55 Total Bilirubin 0.4 mg/dL (0.2-1.0) 11/11/21 05:30 AST 10 U/L (15-37) L 11/11/21 05:30 ALT 14 U/L (12-78) 11/11/21 05:30 Alkaline Phosphatase 138 U/L (45-117) H 11/11/21 05:30 Triglycerides 126 mg/dL (<150) 11/10/21 05:23 Cholesterol 170 mg/dL (<200) 11/10/21 05:23 HDL Cholesterol 51 mg/dL (40-60) 11/10/21 05:23 Cholesterol/HDL Ratio 3.33 11/10/21 05:23 Home Medications: Amlodipine [Norvasc*] 10 mg PO DAILY #30 tab 11/11/21 Atorvastatin Calcium [Lipitor] 40 mg PO BEDTIME #30 tab 11/11/21 Furosemide 40 mg PO DAILY #30 11/11/21 Hydralazine [Apresoline*] 25 mg PO BID #60 tab 11/11/21 Metoprolol Tartrate [Lopressor*] 25 mg PO BID 6AM 6PM #60 tab 11/11/21 New Medications: Hydralazine [Apresoline*] 25 mg PO BID #60 tab Furosemide 40 mg PO DAILY #30 Atorvastatin Calcium [Lipitor] 40 mg PO BEDTIME #30 tab Metoprolol Tartrate [Lopressor*] 25 mg PO BID 6AM 6PM #60 tab Amlodipine [Norvasc*] 10 mg PO DAILY #30 tab Physician Discharge Instructions: 1. Please schedule follow-up appointment with your PCP in 3-5 days. 2. Please schedule follow-up appointment with Nephrology (Dr. Ross) in 1 week. 3. Please schedule follow-up appointment with Cardiology (Dr. Mckee) in 1 week. Diet: Renal Activity: Ad rob Followup: OOT,OOT [Primary Care Provider] - Arthur Ross DO [ACTIVE - CAN ADMIT] - Mauro Mckee MD [ACTIVE - CAN ADMIT] - Time spent managing pt's care (in minutes): 40
[2021-11-11 12:04] LABS: Urine Bacteria <20 /HPF (<20); Urine RBC <5 /HPF (None Seen)
[2021-11-11 12:18] VITALS: BP 171/73; TEMP 97.5
--- NOTE | 2021-11-11 15:47 | PN ---
Date of Progress Note: 11/11/2021 Ms. Haywood has came in with renal failure, congestive heart failure. She has improved and is feeling better. She is not having any chest pain today. She is breathing better. Denied PND, orthopnea, p edal edema. Her examination is fairly unremarkable. Echocardiogram, however, showed an ejection fra ction of 45% with anterior hypokinesis. Her last creatinine is 3.77. I am comfortable with her going home on low-dose Lasix. Continue her home medic ation. I would like to see her in the office very soon. She really needs to have a left heart marisol terization done, but we will have to wait for her renal status to improve. Case was discussed with Karoline Amos. I will see her in the office soon. MICHELA/PATTIE Voice ID: [id number] Report ID: [id number]
--- OUTSIDE RECORDS SUMMARY | 2021-11-12 12:28 | XMS REPORT | Continuity of Care Document ---
:1960 Author Organization [facility] t Address [address] [place] [address] Care Team Providers Name Role Phone PCP, DOES NOT HAVE A Primary Care Physician Unavailable Link ABEL, K.H. Attending Clinician Pob, Lab Main Attending Clinician Unavailable Katarina ABEL Attending Clinician KATARINA Attending Clinician Unavailable Doctor Unassigned, Name Attending Clinician Unavailable Jarett ABEL Attending Clinician Saji MOELLER Attending Clinician SAJI Attending Clinician Unavailable Saji MOELLER Admitting Clinician SAJI Admitting Clinician Unavailable Payers Payer Name Policy Type Policy Number Effective Date Expiration Date S ource Problems Condition Condition Condition Status Onset Resolution Last Treating Co mments Source Name Details Category Date Date Treatment Clinician Date Stage 4 Stage 4 Disease Active Univers chronic chronic 05-01 ity of kidney kidney 00:00: [place] disease disease Medical Branch Essential Essential Disease Active Uni vers hypertensi hypertensi -07 it y of on on 00:00: [place] [address] Medical Branch Acute on Acute on Disease Active Unive rs chronic chronic 07 ity of systolic systolic 00:00: [place] and and Medical diastolic diastolic Bran ch heart heart failure, failure, NYHA class NYHA class 3 3 Dyslipidem Dyslipidem Disease Active U nivers ia ia 1-07 ity of 00:00: [place] [facility] Branch Type 2 Type 2 Disease Active Univers diabetes diabetes 07 ity of mellitus mellitus 00:00: [place] with other with other 00 Me dical specified specified Bran ch complicati complicati on on COVID-19 COVID-19 Disease Active Unive rs 1-06 ity of 00:00: [place] [facility] Branch Obesity Obesity Disease Active Univers (BMI (BMI 1-06 ity of 30-39.9) 30-39.9) 00:00: [place] [facility] LUGO LUGO Disease Active Univers (dyspnea (dyspnea 1-06 ity of on on 00:00: [place] exertion) exertion) 00 [facility] Branch Elevated Elevated Disease Active Unive rs troponin I troponin I 1-06 it y of level level 00:00: [place] [facility] Elevated Elevated Disease Active Unive rs brain brain 1-06 ity of natriureti natriureti 00:00: [facility] c peptide c peptide 00 [facility] (BNP) (BNP) Branch level level Allergies, Adverse Reactions, Alerts Allergy Allergy Status Severity Reaction(s) Onset Inactive Treating Comm ents Source Name Type Date Date Clinician NO KNOWN Drug Active Univers ALLERGIE Class ity of S [facility] Social History Social Habit Start Date Stop Date Quantity Comments Source Exposure to Not sure [facility] SARS-CoV-2 [facility] (event) Branch Alcohol intake 2021-05-01 2021-05-01 Ex-drinker [facility] 00:00:00 00:00:00 (finding) [facility] Sex Ass[birth year] At [birth year] Universit y of 00:00:00 00:00:00 [facility] Smoking Status Start Date Stop Date Source Never smoker [facility] Medications Ordered Filled Start Stop Current Ordering Indication Dosage Frequency Signature Comments Components Source Medication Medication Date Date Medication? Clinician (SIG) Name Name aspirin 81 Yes [id number] 81mg Take 1 Univers mg chewable 05-05 tablet by ity of tablet 00:00: mouth [place] 00 daily. Medical Branch aspirin 81 Yes [id number] 81mg Take 1 Univers mg chewable 05-05 9103 tablet by ity of tablet 00:00: mouth [place] 00 daily. Medical Branch aspirin 81 Yes [id number] 81mg Take 1 Univers mg chewable 05-05 9103 tablet by ity of tablet 00:00: mouth [place] 00 daily. Medical Branch aspirin 81 Yes [id number] 81mg Take 1 Univers mg chewable 05-05 9103 tablet by ity of tablet 00:00: mouth [place] 00 daily. Medical Branch calcitrioL Yes .25ug 0.25 mcg, U nivers (ROCALTROL) 1-10 Oral, Q ity o f capsule 15:00: , [place] 0.25 mcg 00 First dose Medic al on Tue Branch 05/04/21 at 0900, Until Discontinu ed, Routine furosemide 2021- No 40mg Take 40 mg Univers (LASIX) 40 05-04-10 by mouth ity of mg tablet 10:52: 00:00 daily. [place] 58 :00 Medical Branch pantoprazol 2021- No 40mg Take 40 mg Univers e sodium 05-04-10 by mouth ity of (PANTOPRAZO 10:52: 00:00 daily. [place] as LE ORAL) 58 :00 Medical Branch SUCRALFATE 2021- No 1g Take 1 g Un aleksandar ORAL 05-04-10 by mouth ity of 10:52: 00:00 every 8 [place] 58 :00 (eight) Medical hours. Branch metoclopram 2021- No 10mg Take 10 mg Univers yue HCl 05-04-10 by mouth ity of (REGLAN) 10 10:52: 00:00 before [place] mg tablet 58 :00 meals. Medical Take 20 Branch minutes before each meal metoprolol 2021- No 100mg Take 100 U nivers succinate -01 23-10 mg by ity of XL 100 mg 10:52: 00:00 mouth [place] 24 hr 58 :00 daily. Medical tablet Branch telmisartan 2021- No 40mg Take 40 mg Univers 40 mg 05-04-10 by mouth ity of tablet 10:52: 00:00 every 12 [place] 58 :00 (twelve) Medical hours. Branch amLODIPine 2021- No 5mg Take 5 mg U nivers 5 mg tablet 05-04 by mouth ity of 10:52: 00:00 daily. [place] 58 :00 Medical Branch insulin 2021- No 18U inject 18 Univ ers glargine,hu 05-04-10 Units ity of m.rec.anlog 10:52: 00:00 under the [place] (INSULIN 58 :00 skin at Medical GLARGINE bedtime. Branch LA) linaGLIPtin 2021- No 5mg Take 5 mg Univers (TRADJENTA) 05-04 by mouth ity of 5 mg tablet 10:52: 00:00 daily [place] 58 :00 before Medical breakfast. Branch furosemide No 20mg Take 20 mg Univers 20 mg 05-04 by mouth ity of tablet 10:52: 00:00 with [place] 58 :00 lunch. Medical Branch diphenidol No 25mg 25 mg as Un aleksandar HCl 05-04 needed for ity of (DIPHENIDOL 10:52: 00:00 Nausea and [place] , BULK, 58 :00 Vomiting Medical MISC) (N/V). Branch Take one tablet one hour before meals or en case of vomiting docusate Yes 100mg 100 mg, Unive rs (COLACE) 1-10 Oral, BID, ity o f capsule 100 02:00: First dose [place] mg 00 on [facility] 05/03/21 at [place] 1999, Until Discontinu ed, Routine polyethylen Yes 17g 17 g, Unive rs e glycol 1-10 Oral, ity of 3350 powder 01:53: QDAILYPRNKila, [place] 17 g 28 Starting Medical on [facility] 05/03/21 at 1952, Until Discontinu ed, Routine, Constipati on bisacodyL Yes 5mg 5 mg, Univers (DULCOLAX) 1-10 Oral, ity of tablet 5 mg 01:53: QDAILYPRN [place] 05 Starting Medical on [facility] 05/03/21 at 1952, Until Discontinu ed, Routine, Constipati on amLODIPine Yes [id number] 5mg Take 1 Univers 5 mg tablet 1-10 9103 tablet by ity of 00:00: mouth [place] 00 daily. Medical Branch pantoprazol Yes [id number] 20mg Take 1 Univers e 20 mg EC 1-10 9103 tablet by ity of tablet 00:00: mouth [place] 00 daily. Medical Branch insulin Yes [id number] 25U inject 25 Univers glargine 1-10 9103 Units ity of 100 unit/mL 00:00: under the [place] injection 00 skin at Medical bedtime. Branch metoprolol Yes [id number] 100mg Take 1 Univers succinate 1-10 9103 tablet by ity o f XL 100 mg 00:00: mouth [place] 24 hr 00 daily. Medical tablet Branch furosemide Yes [id number] 120mg Take 3 Univers 40 mg 1-10 9103 tablets by ity of tablet 00:00: mouth [place] 00 every Medical morning Branch and evening. 120 mg twice a day amLODIPine Yes [id number] 5mg Take 1 Univers 5 mg tablet 1-10 9103 tablet by ity of 00:00: mouth [place] 00 daily. Medical Branch pantoprazol Yes [id number] 20mg Take 1 Univers e 20 mg EC 1- 9103 tablet by ity of tablet 00:00: mouth [place] 00 daily. Medical Branch insulin Yes [id number] 25U inject 25 Univers glargine 1-10 9103 Units ity of 100 unit/mL 00:00: under the [place] injection 00 skin at Medical bedtime. Branch metoprolol Yes [id number] 100mg Take 1 Univers succinate 1-10 9103 tablet by ity o f XL 100 mg 00:00: mouth [place] 24 hr 00 daily. Medical tablet Branch furosemide Yes [id number] 120mg Take 3 Univers 40 mg 1-10 9103 tablets by ity of tablet 00:00: mouth [place] 00 every Medical morning Branch and evening. 120 mg twice a day amLODIPine Yes [id number] 5mg Take 1 Univers 5 mg tablet 1-10 9103 tablet by ity of 00:00: mouth [place] 00 daily. Medical Branch pantoprazol Yes [id number] 20mg Take 1 Univers e 20 mg EC 1-10 9103 tablet by ity of tablet 00:00: mouth [place] 00 daily. Medical Branch insulin Yes [id number] 25U inject 25 Univers glargine 1-10 9103 Units ity of 100 unit/mL 00:00: under the [place] injection 00 skin at Medical bedtime. Branch metoprolol Yes [id number] 100mg Take 1 Univers succinate 1-10 9103 tablet by ity o f XL 100 mg 00:00: mouth [place] 24 hr 00 daily. Medical tablet Branch furosemide Yes [id number] 120mg Take 3 Univers 40 mg 1-10 9103 tablets by ity of tablet 00:00: mouth [place] 00 every Medical morning Branch and evening. 120 mg twice a day amLODIPine Yes [id number] 5mg Take 1 Univers 5 mg tablet 05-04 9103 tablet by ity of 00:00: mouth [place] 00 daily. Medical Branch pantoprazol Yes [id number] 20mg Take 1 Univers e 20 mg EC 1-10 9103 tablet by ity of tablet 00:00: mouth [place] 00 daily. Medical Branch insulin Yes [id number] 25U inject 25 Univers glargine 1-10 9103 Units ity of 100 unit/mL 00:00: under the [place] injection 00 skin at Medical bedtime. Branch metoprolol Yes [id number] 100mg Take 1 Univers succinate -10 9103 tablet by ity o f XL 100 mg 00:00: mouth [place] 24 hr 00 daily. Medical tablet Branch furosemide Yes [id number] 120mg Take 3 Univers 40 mg -10 9103 tablets by ity of tablet 00:00: mouth [place] 00 every Medical morning Branch and evening. 120 mg twice a day furosemide Yes 120mg 120 mg, Uni vers (LASIX) 05-03 Oral, ity of tablet 120 23:00: QAM+PM, [place] mg 00 First dose Medical on Sun Branch 05/03/21 at 1700, Until Discontinu ed, Routine iron 2021- No 300mg 300 mg, IV Unive rs sucrose 05-03- Infusion, ity of (VENOFER) 20:15: 23:04 ONCE, [place] 300 mg in 00 :00 Administer Medi jeremiah NaCl 0.9% over 2.5 Branch (NS) 250 mL Hours, On infusion 05/03/21 at 1415, For 1 dose insulin Yes 25U 25 Units, Unive rs glargine 05-03 Subcutaneo ity o f (LANTUS 03:00: us, QHS, [place] U-100) 00 First dose Medical injection (after Branch 25 Units last modificati on) on 05/02/21 at 2100, Until Discontinu ed Sliding Yes Subcutaneo Univ ers Scale -09 us, Q4H, ity of Insulin - 02:00: First dose [place] Lispro 00 (after Medical (HumaLOG) + last Branch Fsbg modificati Testing on) on 05/02/21 at 2000, Until Discontinu ed, Routine sodium Yes 650mg 650 mg, Univers bicarbonate 08 Oral, QID, it y of (ANTACID 18:00: First dose [place] (SODIUM 00 on Sat Medical BICARBONATE 05/02/21 at [facility] )) tablet 1200, 650 mg Until Discontinu ed, Routine furosemide 2021- No 80mg 80 mg, Univ ers (LASIX) 05-02 Slow IV ity of injection 18:00: 18:56 Push, Q6H, [place] 80 mg 00 :55 First dose Medical on Sat Branch 05/02/21 at 1200, Until Discontinu ed, Routine dexamethaso 2021- No 6mg 6 mg, Slow Univers ne 05-02 IV Push, ity of (DECADRON 15:00: 14:59 DAILY, 9 [place] PHOSPHATE) 00 :00 doses, Medical injection 6 First dose Br anch mg (after last reorder) on 05/02/21 at 0900, Last dose on 05/10/21 at 0900, Routine sodium 2021- No [id number] 150meq IV Univ ers bicarbonate 05-02 Infusion, it y of 150 mEq in 10:15: 10:15 at 125 [place] D5W 1,000 00 :00 mL/hr, 150 Medi jeremiah mL IV mEq, ONCE, Branch infusion 1 dose, On 05/02/21 at 0415, STAT furosemide 2021- No [id number] 80mg 80 mg, Univers (LASIX) 05-01 Slow IV ity of injection 16:45: 16:21 Push, [place] 80 mg 00 :05 Q12H, Medical First dose Branch on Tue05/01/21 at 1045, Until Discontinu ed, Routine aspirin Yes 81mg 81 mg, Univers chewable 05-01 Oral, ity of tablet 81 15:00: DAILY, [place] mg 00 First dose Medical on Tue Branch 05/01/21 at 0900, Until Discontinu ed, Routine pantoprazol Yes 40mg 40 mg, Univ ers e 05-01 Oral, ity of (PROTONIX) 15:00: DAILY, [place] EC tablet 00 First dose Medi jeremiah 40 mg on Tue Branch 05/01/21 at 0900, Until Discontinu ed metoprolol Yes 100mg 100 mg, Uni vers succinate 05-01 Oral, ity of XL (TOPROL 15:00: DAILY, [place] XL) tablet 00 First dose Med ical 100 mg on Tue Branch 05/01/21 at 0900, Until Discontinu ed, Routine amLODIPine Yes 5mg 5 mg, Univer s (NORVASC) 05-01 Oral, ity of tablet 5 mg 15:00: DAILY, [place] 00 First dose Medical on Tue Branch 05/01/21 at 0900, Until Discontinu ed, Routine dexamethaso 2021- No 6mg 6 mg, Slow Univers ne 05-01 IV Push, ity of (DECADRON 06:00: 11:00 ONCE, 1 [place] PHOSPHATE) 00 :00 dose, On Medic al injection 6 Tue05/01/21 Br anch mg at 0000, Routine insulin 2021- No 18U 18 Units, [facility] ers glargine 05-01 Subcutaneo ity of (LANTUS 03:00: 00:39 us, [facility], [place] U-100) 00 :26 First dose Medical injection on [place] Branch 18 Units 04/30/21 at 2100, Until Discontinu ed Sliding No Subcutaneo Uni vers Scale [id number] us, TID ity of Insulin - 23:00: 00:39 MEALS+HS, [place] Lispro 00 :26 First dose Medical (HumaLOG) + on [place] Branch Fsbg 04/30/21 at Testing 1700, Until Discontinu ed, Routine sulfur 2021- No [id number] 5mL 5 mL, [facility] ers hexafluorid 04-30 Intravenou i ty of e microsphr 21:00: 21:00 s, ONCE, 1 [place] (LUMASON) 00 :00 dose, On Medica l injection 5 [place] 04/30/21 Br anch mL at 1500, Routine
direct support staff member approving Restricted medication : CHAPIS GUPTA heparin Yes 5000U 5,000 Univers (porcine) 04-30 Units, ity of injection 20:00: Subcutaneo [place] 5,000 Units 00 us, Q8H, Medi jeremiah First dose Branch on [place] 04/30/21 at 1400, Until Discontinu ed, Routine codeine-gua Yes 10mL 10 mL, [facility] ifenesin 04-30 Oral, ity of (ROBITUSSIN 19:40: Q6HPRN, [place] AC) 10-100 55 Starting Medic al mg/5 mL on [place] Branch oral 04/30/21 at solution 10 1340, mL Until Discontinu ed, Routine, Cough albuterol Yes 2{puff} 2 Puff, Un aleksandar (VENTOLIN) 04-30 Inhalation ity of inhaler 2 19:40: , Q6HPRN, [place] Puff 48 Starting Medical on [place] Branch 04/30/21 at 1340, Until Discontinu ed, Routine, Wheezing, Shortness of Breath, Bronchospa sm, Chest tightness acetaminoph Yes 650mg 650 mg, Un aleksandar en 04-30 Oral, ity of (TYLENOL) 19:39: Q6HPRN, [place] tablet 650 47 Starting Medic al mg on [place] Branch 04/30/21 at 1339, Until Discontinu ed, Routine, Pain (scale 1-3) dexamethaso 2021- No 10mg 10 mg, IV Univers ne 04-30 Push, ity of (DECADRON 13:45: 13:45 ONCE, 1 [place] PHOSPHATE) 00 :00 dose, On Medic al injection [place] 04/30/21 Bran ch 10 mg at 0745, STAT acetaminoph 2021- No 1000mg 1,000 mg, Univers en 04-30 Oral, ity of (TYLENOL) 12:45: 11:48 ONCE, 1 [place] tablet 00 :00 dose, On Medical 1,000 mg [place] 04/30/21 Branc h at 0645, CARLITOS Vital Signs Vital Name Observation Time Observation Value Comments Source Systolic blood 2021-05-04 17:15:00 156 mm[Hg] Univer sity [facility] Diastolic blood 2021-05-04 17:15:00 60 mm[Hg] Unive [facility] Heart rate 2021-05-04 17:15:00 93 /min [facility] Body temperature 2021-05-04 17:15:00 37 Venita [facility] Respiratory rate 2021-05-04 17:15:00 18 /min [facility] Oxygen saturation in 2021-05-04 17:15:00 96 /min [facility] Arterial blood by [facility] Pulse oximetry Branch Body weight 2021-05-01 09:42:00 84.959 kg [facility] BMI 2021-05-01 09:42:00 34.26 kg/m2 [facility] Body height 2021-04-30 15:05:00 157.5 cm [facility] Procedures Procedure Date / Time Performing Clinician Source Performed PROTEIN URINE, URINALYSIS 2021-05-18 18:05:00 [facility] 2021-05-18 18:01:00 Yara Husain [facility] MAGNESIUM 2021-05-18 18:01:00 Lisha [facility] RENAL PANEL 2021-05-18 18:01:00 Lisha [facility] CBC WITH DIFF 2021-05-18 18:01:00 Lisha [facility] URINALYSIS 2021-05-18 18:01:00 [facility] ASSIGNMENT OF BENEFITS 2021-05-18 17:26:33 Doctor Unassigned, Un [facility] [place] [facility] POCT GLUCOSE (AUTOMATED) 2021-05-04 13:30:00 Aby Jenkins [facility] BASIC METABOLIC PANEL (NA, 2021-05-04 11:17:00 Jeovany Palomo [facility] K, CL, CO2, GLUCOSE, BUN, Medica l Branch CREATININE, CA) POCT GLUCOSE (AUTOMATED) 2021-05-04 06:20:00 [facility] ([facility]) 2021-05-04 01:16:00 [facility]by [facility] PO[facility] GLUCOSE (AUTOMATED) 2021-05-03 22:14:00 Aby Jenkins [facility] POCT GLUCOSE (AUTOMATED) 2021-05-03 17:48:00 Aby Jenkins [facility] POCT GLUCOSE (AUTOMATED) 2021-05-03 13:42:00 [facility] BASIC METABOLIC PANEL (NA, 2021-05-03 11:13:00 Jeovany Palomo [facility] K, CL, CO2, GLUCOSE, BUN, Medica l Branch CREATININE, CA) CBC WITH DIFF 2021-05-03 11:13:00 Jeovany Palomo o [facility] N-TERMINAL PRO-BNP 2021-05-03 11:13:00 [facility]UCOSE ([facility]OMATED) 2021-05-03 10:57:00 [facility] PO[facility] GLUCOSE (AUTOMATED) 2021-05-03 06:20:00 Aby [facility] POCT GLUCOSE (AUTOMATED) 2021-05-03 02:31:00 Aby Jenkins verstiara [facility] POCT GLUCOSE (AUTOMATED) 2021-05-02 22:43:00 Aby Jenkins [facility] POCT GLUCOSE (AUTOMATED) 2021-05-02 17:53:00 [facility] X[facility] CHEST 1 VW 2021-05-02 16:59:05 Adam Neri [facility] POCT GLUCOSE (AUTOMATED) 2021-05-02 13:36:00 Aby Jenkins [facility] PHOSPHORUS 2021-05-02 10:23:00 Lisha, [facility] MAGNESIUM 2021-05-02 10:23:00 Lisha, [facility] FERRITIN SERUM 2021-05-02 10:23:00 Lisha, [facility] IRON 2021-05-02 10:23:00 Lisha, [facility] TOTAL IRON BINDING 2021-05-02 10:23:00 Lisha [facility] CAPACITY [facility] [place] [facility] TROPONIN I 2021-05-02 10:23:00 Stacia [facility] THYROID STIMULATING 2021-05-02 10:23:00 Lisha [facility] HORMONE [facility] COMP. METABOLIC PANEL 2021-05-02 10:23:00 Jeovany Palomo [facility] ([id number]) [facility] CBC WITH DIFF 2021-05-02 10:23:00 Stacia [facility] N-TERMINAL PRO-BNP 2021-05-02 10:23:00 Jeovany Palomo [facility] POCT GLUCOSE (AUTOMATED) 2021-05-02 08:06:00 Aby Jenkins [facility] POCT GLUCOSE (AUTOMATED) 2021-05-02 02:38:00 Aby Jenkins [facility] POCT GLUCOSE (AUTOMATED) 2021-05-01 22:14:00 Aby Jenkins [facility] INTACT PTH CALCIUM GROUP 2021-05-01 20:00:00 Lisha, [facility] VITAMIN D, 25-OH 2021-05-01 20:00:00 Lisha, [facility] URINALYSIS 2021-05-01 19:11:00 Lisha, [facility] POTASSIUM, URINE RANDOM 2021-05-01 19:11:00 Lisha, [facility] SODIUM, URINE RANDOM 2021-05-01 19:11:00 Lisha [facility] PROTEIN CREAT RATIO URINE 2021-05-01 19:11:00 Yara Husain [facility] RANDOM [facility] [place] [facility] US RETROPERITONEAL 2021-05-01 17:53:56 Lisha [facility] COMPLETE [facility] POCT GLUCOSE (AUTOMATED) 2021-05-01 17:06:00 Aby Jenkins [facility] ACUTE CARE ARTERIAL BLOOD 2021-05-01 16:46:00 LishaYara lovelace [facility] GAS [facility] POCT GLUCOSE (AUTOMATED) 2021-05-01 13:37:00 Aby Jenkins [facility] PHOSPHORUS 2021-05-01 11:58:00 Lisha [facility] CREATINE KINASE 2021-05-01 11:58:00 Lisha [facility] LIPASE 2021-05-01 11:58:00 Aby Jenkins [facility] MAGNESIUM 2021-05-01 11:58:00 Aby Jenkins [facility] TROPONIN I 2021-05-01 11:58:00 Julianna Maza [facility] HEPATIC FUNCTION PANEL 2021-05-01 11:58:00 Aby Jenkins [facility] ([id number]) (ALB,T.PRO,[facility] T,BU/BC,ALT,AST,ALK PHOS) BASIC METABOLIC PANEL (NA, 2021-05-01 11:58:00 Aby Jenkins [facility] K, CL, CO2, GLUCOSE, BUN, Medica l Branch CREATININE, CA) CBC WITH DIFF 2021-05-01 11:58:00 Aby Jenkins [facility] N-TERMINAL PRO-BNP 2021-05-01 11:58:00 Julianna Maza [facility] POCT GLUCOSE (AUTOMATED) 2021-05-01 02:41:00 Aby Jenkins [facility] US ABDOMEN LIMITED 2021-04-30 23:43:00 Saji, A[facility] POCT GLUCOSE (AUTOMATED) 2021-04-30 23:07:00 Aby Jenkins [facility] GLYCOSYLATED HEMOGLOBIN 2021-04-30 22:02:00 Aby Jenkins [facility] (A1C) Medical Branch TROPONIN I 2021-04-30 21:50:00 Aby Jenkins [facility] TRANSTHORACIC ECHO (TTE) 2021-04-30 20:37:00 Aby Jenkins [facility] COMPLETE W/ CONTRAST Medical Bra [facility] ABORH CONFIRMATION (LAB 2021-04-30 13:30:00 Remy Denson [facility] ONLY) Medical Branch COMP. METABOLIC PANEL 2021-04-30 13:12:00 Remy Denson [facility] ([id number]) Medical [place] LIPID PANEL ([id number])(TOTAL 2021-04-30 13:12:00 Aby Jenkins [facility] CHOLESTEROL, [facility] [place] [facility] TRIGLYCERIDES, HDL) CRITICAL CARE 2021-04-30 12:46:07 Remy Denson [facility] XR CHEST 1 VW 2021-04-30 12:19:00 Remy Denson [facility] HB ECG ROUTINE & RHYTHM 2021-04-30 12:07:45 Remy Denson [facility] HB ABO GROUPING 2021-04-30 12:06:00 Remy Denson [facility] LACTIC ACID WHOLE BLOOD 2021-04-30 12:05:00 Remy Denson [facility] BLOOD CULTURE SCREEN 2021-04-30 12:02:00 Remy Denson [facility] LIPASE 2021-04-30 12:01:00 Remy Denson [facility] TROPONIN I 2021-04-30 12:01:00 Remy Denson [facility] CBC WITH DIFF 2021-04-30 12:01:00 Remy Denson [facility] PROTHROMBIN TIME / INR 2021-04-30 12:01:00 [facility] THRMPLAS 2021-04-30 12:01:00 Remy Denson [facility] N-TERMINAL PRO-BNP 2021-04-30 12:01:00 Remy Denson [facility] [place] [facility] COVID-19 (ID NOW RAPID 2021-04-30 12:01:00 [facility] TESTING) Medical Branch LAB ONLY COVID 2021-04-30 12:01:00 Remy Denson o f [place] INTERPRETATION [facility] CONSENT/REFUSAL FOR 2021-04-30 11:26:07 Doctor John [facility] DIAGNOSIS AND TREATMENT [facility] [place] NOTICE OF PRIVACY 2021-04-30 11:25:36 Doctor John [facility] PRACTICES [facility] [place] Encounters Start End Encounter Admission Attending Care Care Encounter Source Date/Time Date/Time Type Type Clinicians Facility Department ID 2021-05-27 2021-05-27 Telephone Link [facility] [id number] Univers 00:00:00 00:00:00 Sendsamaria ROJAS [id number] ity [facility] [id number] [place] PROFESS[place] [id number] Dc dical NAL 059 [facility] 2021-05-18 2021-05-18 Pulverizer Operator Jay, Kristian Lab Main [facility] [id number] Univers 13:30:00 13:45:00 Visit Rhoda Delgado [id number] ity [facility] [id number] [place] PROFESS[place] [id number] Dc dical NAL 353 [facility] 2021-05-18 2021-05-18 Outpatient R KATARINA [facility] [id number] Univers 13:30:00 13:30:00 RHODA menjivar [facility] 2021-05-18 2021-05-18 Orders Doctor ANDERSON [id number] Univers 00:00:00 00:00:00 Only DANIELE Lopez [id number] ity of [facility] [id number] [place] as [id number] [address] 2021-04-30 2021-05-04 Hospital Remy Denson [facility] [id number] Univers 05:33:00 12:29:00 Encounter Saji [id number] [id number] [facility] [id number] [facility] 080 Branch 2021-04-30 2021-05-04 Inpatient X [facility] [id number] 05:33:00 12:29:00 ABY menjivar [facility] Results Test Description Test Time Test Comments Results Result Comments Source MAGNESIUM 2021-05-18 18:46:20 Test Item Value Reference Range Interpretation Comme nts MAGNESIUM (test code = 2475115119) 1.8 mg/dL 1.7-2.4 Lab Interpretation (test code = 68737-0) [id number] 18:46:00 Test Item Value Reference Range Interpretation Comments ALBUMIN (test code = 4.0 g/dL 3.5-5.0 3377435762) CALCIUM (test code = 9.3 mg/dL 8.6-10.6 6733253222) CO2 TOTAL (test code = 32 mmol/L 23-31 H 3997691250) CREATININE (test code = 3.42 mg/dL 0.50-1.04 H 8967717928) GLUCOSE (test code = 193 mg/dL 70-110 H 2904339174) K (test code = 4.4 mmol/L 3.5-5.0 5740199112) NA (test code = 132 mmol/L 135-145 L 0164929245) BUN (test code = 82 mg/dL 7-23 H 1907941252) PHOSPHORUS (test code = 4.5 mg/dL 2.5-5.0 6642975462) eGFR (test code = mL/min/1.73m2 5566544643) INDIRA (test code = INDIRA) Association of Glomerular Filtration Rate (GFR) and Staging of Kidney Disease* + --+ --+ ------+| GFR (mL/min/1.73 m2) ?| With Kidney Damage ?| ?Without Kidney Damage+ --------+ --------+ +| ?>90 ?| ?Stage one ?| ? Normal ?+ ---+ ---+ -------+| ?60-89 ?| ?Stage two ?| ? Decreased GFR ? + --+ --+ ------+| ?30-59 ?| ?Stage three ?| ? Stage three ? + --+ --+ ------+| ?15-29 ?| ?Stage four ? | ? Stage four ?+ ---+ ---+ -------+| ?<15 (or dialysis) ? ?| ?Stage five ? | ? Stage five ?+ ---+ ---+ -------+ *Each stage assumes the associated GFR level has been in effect for at least three months. ?Stages 1 to 5, with or without kidney disease, indicate chronic kidney disease. Notes: Determination of stages one and two (with eGFR >59mL/min/1.73 m2) requires estimation of kidney damage for at least three months as defined by structural or functional abnormalities of the kidney, manifested by either:Pathological abnormalities or Markers of kidney damage (including abnormalities in the composition of the blood or urine or abnormalities in imaging tests). Lab Interpretation Abnormal (test code = 80097-2) [facility] [id number] 18:45:40 Test Item Value Reference Range Interpretation Comments URIC ACID (test code = 4969793348) 13.7 mg/dL 2.9-6.0 H Lab Interpretation (test code = Abnormal 19008-9) [facility] WITH [id number] 18:07:59 Test Item Value Reference Range Interpretation Comments WBC (test code = See_Comment [Automated 5917-2) message] The sy stem which generated this result transmitted reference range : 4.30 - 11.10 10*3/?L. The reference range was not used to interpret this result as normal/abnormal . RBC (test code = See_Comment L [Automated 088-8) message] The sy stem which generated this result transmitted reference range : 3.93 - 5.25 10*6/?L. The reference range was not used to interpret this result as normal/abnormal . HGB (test code = 10.2 g/dL 11.6-15.0 L 718-7) HCT (test code = 31.1 % 35.7-45.2 L 4544-3) MCV (test code = 91.2 fL 80.6-95.5 787-2) MCH (test code = 29.9 pg 25.9-32.8 785-6) MCHC (test code = 32.8 g/dL 31.6-35.1 786-4) RDW-SD (test code = 46.8 fL 39.0-49.9 38350-7) RDW-CV (test code = 14.0 % 12.0-15.5 788-0) PLT (test code = See_Comment [Automated 777-3) message] The sy stem which generated this result transmitted reference range : 166 - 358 10*3/ ?L. The reference r lucille was not used to interpret this result as normal/abnormal . MPV (test code = 11.7 fL 9.5-12.9 63487-7) NRBC/100 WBC (test See_Comment [Automat ed code = 8403275022) message] The system which generated this result transmitted reference range : 0.0 - 10.0 /100 WBCs. The refer ence range was not u sed to interpret th is result as normal/abnormal . NRBC x10^3 (test code <0.01 See_Comment [Auto mated = 0701847151) message] The s ystem which generated this result transmitted reference range : 10*3/?L. The reference range was not used to interpret this result as normal/abnormal . GRAN MAT (NEUT) % 72.3 % (test code = 770-8) IMM GRAN % (test code 0.50 % = 7296770074) LYMPH % (test code = 15.6 % 736-9) MONO % (test code = 6.5 % 5905-5) EOS % (test code = 4.7 % 713-8) BASO % (test code = 0.4 % 706-2) GRAN MAT x10^3(ANC) 6.99 10*3/uL 1.88-7.09 (test code = 8433603064) IMM GRAN x10^3 (test 0.05 10*3/uL 0.00-0.06 code = 9880980050) LYMPH x10^3 (test code 1.51 10*3/uL 1.32-3.29 = 731-0) MONO x10^3 (test code 0.63 10*3/uL 0.33-0.92 = 742-7) EOS x10^3 (test code = 0.45 10*3/uL 0.03-0.39 H 711-2) BASO x10^3 (test code 0.04 10*3/uL 0.01-0.07 = 704-7) Lab Interpretation Abnormal (test code = 54725-0) [facility] 13:34:05 Test Item Value Reference Range Interpretation Comments POCT GLU (test code = 5833498453) 137 mg/dL 70-110 H Lab Interpretation (test code = Abnormal 27203-9) [facility] METABOLIC PANEL (NA, K, CL, CO2, GLUCOSE, BUN, CREATININE, CA)2021-05-04 13:21:05 Test Item Value Reference Range Interpretation Comments NA (test code = 133 mmol/L 135-145 L 8457875585) K (test code = 3.8 mmol/L 3.5-5.0 9470475530) CL (test code = 98 mmol/L 98-108 8367845816) CO2 TOTAL (test code = 26 mmol/L 23-31 0572989311) AGAP (test code = 2-16 8606807842) BUN (test code = 103 mg/dL 7-23 H 8208763630) GLUCOSE (test code = 134 mg/dL 70-110 H 4190555330) CREATININE (test code = 3.88 mg/dL 0.50-1.04 H 1405984066) CALCIUM (test code = 8.3 mg/dL 8.6-10.6 L 9265096837) eGFR (test code = mL/min/1.73m2 5686975358) INDIRA (test code = INDIRA) Association of Glomerular Filtration Rate (GFR) and Staging of Kidney Disease* + --+ --+ ------+| GFR (mL/min/1.73 m2) ?| With Kidney Damage ?| ?Without Kidney Damage+ --------+ --------+ +| ?>90 ?| ?Stage one ?| ? Normal ?+ ---+ ---+ -------+| ?60-89 ?| ?Stage two ?| ? Decreased GFR ? + --+ --+ ------+| ?30-59 ?| ?Stage three ?| ? Stage three ? + --+ --+ ------+| ?15-29 ?| ?Stage four ? | ? Stage four ?+ ---+ ---+ -------+| ?<15 (or dialysis) ? ?| ?Stage five ? | ? Stage five ?+ ---+ ---+ -------+ *Each stage assumes the associated GFR level has been in effect for at least three months. ?Stages 1 to 5, with or without kidney disease, indicate chronic kidney disease. Notes: Determination of stages one and two (with eGFR >59mL/min/1.73 m2) requires estimation of kidney damage for at least three months as defined by structural or functional abnormalities of the kidney, manifested by either:Pathological abnormalities or Markers of kidney damage (including abnormalities in the composition of the blood or urine or abnormalities in imaging tests). Lab Interpretation Abnormal (test code = 37255-8) [facility] GLUCOSE (AUTOMATED)2021-05-04 06:30:37 Test Item Value Reference Range Interpretation Comments POCT GLU (test code = 3812593365) 244 mg/dL 70-110 H Lab Interpretation (test code = Abnormal 91899-8) [facility] GLUCOSE (AUTOMATED)2021-05-04 01:22:49 Test Item Value Reference Range Interpretation Comments POCT GLU (test code = 2368798613) 295 mg/dL 70-110 H Lab Interpretation (test code = Abnormal 35693-4) [facility] GLUCOSE (AUTOMATED)2021-05-03 22:18:16 Test Item Value Reference Range Interpretation Comments POCT GLU (test code = 5062597849) 309 mg/dL 70-110 H Lab Interpretation (test code = Abnormal 53316-1) [facility] GLUCOSE (AUTOMATED)2021-05-03 18:28:39 Test Item Value Reference Range Interpretation Comments POCT GLU (test code = 6855964841) 274 mg/dL 70-110 H Lab Interpretation (test code = Abnormal 24149-3) [facility] GLUCOSE (AUTOMATED)2021-05-03 14:15:50 Test Item Value Reference Range Interpretation Comments POCT GLU (test code = 7581763568) 147 mg/dL 70-110 H Lab Interpretation (test code = Abnormal 63349-7) [facility] [id number] 13:54:02 Test Item Value Reference Range Interpretation Comments NT-proBNP (test code 50228 pg/mL See_Comment H [Autom ated = 1050823557) message] The system which generated this result transmitted reference range : <=125. The reference range was not used to interpret this result as normal/abnormal . INDIRA (test code = INDIRA) Biotin has been reported to cause a negative bias, interpret results relative to patient's use of biotin. Lab Interpretation Abnormal (test code = 58938-2) [facility] METABOLIC PANEL (NA, K, CL, CO2, GLUCOSE, BUN, CREATININE, CA)2021-05-03 13:12:28 Test Item Value Reference Range Interpretation Comments NA (test code = 132 mmol/L 135-145 L 4009026318) K (test code = 4.2 mmol/L 3.5-5.0 9266192602) CL (test code = 101 mmol/L 98-108 4192278761) CO2 TOTAL (test code = 23 mmol/L 23-31 1685405405) AGAP (test code = 2-16 9709021207) BUN (test code = 96 mg/dL 7-23 H 9924608050) GLUCOSE (test code = 147 mg/dL 70-110 H 6422765263) CREATININE (test code = 3.70 mg/dL 0.50-1.04 H 5092010587) CALCIUM (test code = 8.3 mg/dL 8.6-10.6 L 7895332160) eGFR (test code = mL/min/1.73m2 3413892459) INDIRA (test code = INDIRA) Association of Glomerular Filtration Rate (GFR) and Staging of Kidney Disease* + --+ --+ ------+| GFR (mL/min/1.73 m2) ?| With Kidney Damage ?| ?Without Kidney Damage+ --------+ --------+ +| ?>90 ?| ?Stage one ?| ? Normal ?+ ---+ ---+ -------+| ?60-89 ?| ?Stage two ?| ? Decreased GFR ? + --+ --+ ------+| ?30-59 ?| ?Stage three ?| ? Stage three ? + --+ --+ ------+| ?15-29 ?| ?Stage four ? | ? Stage four ?+ ---+ ---+ -------+| ?<15 (or dialysis) ? ?| ?Stage five ? | ? Stage five ?+ ---+ ---+ -------+ *Each stage assumes the associated GFR level has been in effect for at least three months. ?Stages 1 to 5, with or without kidney disease, indicate chronic kidney disease. Notes: Determination of stages one and two (with eGFR >59mL/min/1.73 m2) requires estimation of kidney damage for at least three months as defined by structural or functional abnormalities of the kidney, manifested by either:Pathological abnormalities or Markers of kidney damage (including abnormalities in the composition of the blood or urine or abnormalities in imaging tests). Lab Interpretation Abnormal (test code = 80704-4) [facility] WITH [id number] 12:05:23 Test Item Value Reference Range Interpretation Comments WBC (test code = See_Comment [Automated 7590-2) message] The sy stem which generated this result transmitted reference range : 4.30 - 11.10 10*3/?L. The reference range was not used to interpret this result as normal/abnormal . RBC (test code = See_Comment L [Automated 339-8) message] The sy stem which generated this result transmitted reference range : 3.93 - 5.25 10*6/?L. The reference range was not used to interpret this result as normal/abnormal . HGB (test code = 9.2 g/dL 11.6-15.0 L 718-7) HCT (test code = 28.7 % 35.7-45.2 L 4544-3) MCV (test code = 91.1 fL 80.6-95.5 787-2) MCH (test code = 29.2 pg 25.9-32.8 785-6) MCHC (test code = 32.1 g/dL 31.6-35.1 786-4) RDW-SD (test code = 47.8 fL 39.0-49.9 63654-8) RDW-CV (test code = 14.5 % 12.0-15.5 788-0) PLT (test code = See_Comment [Automated 777-3) message] The sy stem which generated this result transmitted reference range : 166 - 358 10*3/ ?L. The reference r lucille was not used to interpret this result as normal/abnormal . MPV (test code = 11.9 fL 9.5-12.9 49136-0) NRBC/100 WBC (test See_Comment [Automat ed code = 5498279728) message] The system which generated this result transmitted reference range : 0.0 - 10.0 /100 WBCs. The refer ence range was not u sed to interpret th is result as normal/abnormal . NRBC x10^3 (test code See_Comment [Auto mated = 4545711758) message] The s ystem which generated this result transmitted reference range : 10*3/?L. The reference range was not used to interpret this result as normal/abnormal . GRAN MAT (NEUT) % 78.9 % (test code = 770-8) IMM GRAN % (test code 0.50 % = 5730008906) LYMPH % (test code = 12.8 % 736-9) MONO % (test code = 7.7 % 5905-5) EOS % (test code = 0.0 % 713-8) BASO % (test code = 0.1 % 706-2) GRAN MAT x10^3(ANC) 5.84 10*3/uL 1.88-7.09 (test code = 9867815411) IMM GRAN x10^3 (test 0.04 10*3/uL 0.00-0.06 code = 0743532244) LYMPH x10^3 (test code 0.95 10*3/uL 1.32-3.29 L = 731-0) MONO x10^3 (test code 0.57 10*3/uL 0.33-0.92 = 742-7) EOS x10^3 (test code = <0.03 0.03-0.39 L 711-2) BASO x10^3 (test code <0.03 0.01-0.07 = 704-7) Lab Interpretation Abnormal (test code = 63650-7) [facility] GLUCOSE (AUTOMATED)2021-05-03 11:00:31 Test Item Value Reference Range Interpretation Comments POCT GLU (test code = 147 mg/dL 70-110 H Notifi ed Provider [id number]) Lab Interpretation (test Abnormal code = 97214-0) [facility] GLUCOSE (AUTOMATED)2021-05-03 06:32:35 Test Item Value Reference Range Interpretation Comments POCT GLU (test code = 255 mg/dL 70-110 H Notifi ed Provider [id number]) Lab Interpretation (test Abnormal code = 22777-7) [facility] GLUCOSE (AUTOMATED)2021-05-03 02:38:08 Test Item Value Reference Range Interpretation Comments POCT GLU (test code = 8273556508) 300 mg/dL 70-110 H Lab Interpretation (test code = Abnormal 56478-3) [facility] GLUCOSE (AUTOMATED)2021-05-02 22:57:17 Test Item Value Reference Range Interpretation Comments POCT GLU (test code = 3177184533) 380 mg/dL 70-110 H Lab Interpretation (test code = Abnormal 92586-1) [facility] GLUCOSE (AUTOMATED)2021-05-02 18:00:55 Test Item Value Reference Range Interpretation Comments POCT GLU (test code = 3869997434) 350 mg/dL 70-110 H Lab Interpretation (test code = Abnormal 59085-7) [facility] CAL[facility] [id number] 17:49:16 Test Item Value Reference Range Interpretation Comments PTH-INTACT (test code = 278.6 pg/mL 12.0-88.0 H 0821643498) PTH-CA Interpretation Furthe r clinical (test code = 0262444633) rafael a needed for interpretation. CALCIUM (test code = 8.0 mg/dL 8.6-10.6 L 9206538296) Lab Interpretation (test Abnormal code = 57106-9) [facility] [id number] 15:36:16 Test Item Value Reference Range Interpretation Comments NT-proBNP (test code 54534 pg/mL See_Comment H [Autom ated = 7024444337) message] The system which generated this result transmitted reference range : <=125. The reference range was not used to interpret this result as normal/abnormal . INDIRA (test code = INDIRA) Biotin has been reported to cause a negative bias, interpret results relative to patient's use of biotin. Lab Interpretation Abnormal (test code = 82126-5) [facility] HospitalFerritin [id number] 15:28:38 Test Item Value Reference Range Interpretation Comments FERRITIN (test code = 579.0 ng/mL 11.0-264.0 H 8092443071) INDIRA (test code = INDIRA) Biotin has been reported to cause a negative bias, interpret results relative to patient's use of biotin. Lab Interpretation (test Abnormal code = 34990-2) [facility] HospitalTHYROID STIMULATING [id number] 15:24:40 Test Item Value Reference Range Interpretation Comments TSH (test code = See_Comment L [Automated message] 9268301829) The system [employer] generated this result transmitted ref erence range: 0.45 - 4 .70 mIU/L. The refe rence range was not u sed to interpret this result as normal/abnor mal. Lab Interpretation (test Abnormal code = 62553-5) [facility] HospitalTROPONIN [id number] 15:06:20 Test Item Value Reference Interpretation Comments Range TROPONIN I (test 0.070 ng/mL See_Comment H [Automated code = 1195931972) message] The system which generated this result transmitted reference range : <=0.034. The reference range was not used to interpret this result as normal/abnormal . INDIRA (test code = Reference (Normal) INDIRA) Range (defined by the 99th percentile reference limit): <= 0.034 ng/mL Note: Cardiac troponin begins to rise 3-4 hours after the onset of ischemia. Repeat in 4-6 hours if the sample was drawn within 3-4 hours of the onset of the symptom and found normal. Diagnosis of myocardial injury is made with acute changes in cTn concentrations with at least one serial sample above the 99th percentile upper reference limit (URL), taken together with the patient's clinical presentation. Biotin has been reported to cause a negative bias, interpret results relative to patient's use of biotin. Lab Interpretation Abnormal (test code = 04904-1) [facility]20[facility] 14:54:15 Test Item Value Reference Range Interpretation Comments MAGNESIUM (test code = 4913716138) 2.3 mg/dL 1.7-2.4 Lab Interpretation (test code = Normal 49788-5) [facility]. METABOLIC PANEL (54516)2021-05-02 14:53:55 Test Item Value Reference Range Interpretation Comments NA (test code = 131 mmol/L 135-145 L 2205893933) K (test code = 5.3 mmol/L 3.5-5.0 H 4392707345) CL (test code = 105 mmol/L 98-108 3573126747) CO2 TOTAL (test code = 17 mmol/L 23-31 L 0247688490) AGAP (test code = 2-16 0736922293) BUN (test code = 82 mg/dL 7-23 H 5744775794) GLUCOSE (test code = 235 mg/dL 70-110 H 0595463345) CREATININE (test code = 3.48 mg/dL 0.50-1.04 H 7208699639) TOTAL BILI (test code = 0.3 mg/dL 0.1-1.7 8311621363) CALCIUM (test code = 8.0 mg/dL 8.6-10.6 L 4902377969) T PROTEIN (test code = 5.9 g/dL 6.3-8.2 L 6825335853) ALBUMIN (test code = 2.9 g/dL 3.5-5.0 L 1008080375) ALK PHOS (test code = 116 U/L 34-122 7752006043) ALTv (test code = 122 U/L 5-35 H 1742-6) AST(SGOT) (test code = 45 U/L 13-40 H 7285209932) eGFR (test code = mL/min/1.73m2 6631129592) INDIRA (test code = INDIRA) Association of Glomerular Filtration Rate (GFR) and Staging of Kidney Disease* + --+ --+ ------+| GFR (mL/min/1.73 m2) ?| With Kidney Damage ?| ?Without Kidney Damage+ --------+ --------+ +| ?>90 ?| ?Stage one ?| ? Normal ?+ ---+ ---+ -------+| ?60-89 ?| ?Stage two ?| ? Decreased GFR ? + --+ --+ ------+| ?30-59 ?| ?Stage three ?| ? Stage three ? + --+ --+ ------+| ?15-29 ?| ?Stage four ? | ? Stage four ?+ ---+ ---+ -------+| ?<15 (or dialysis) ? ?| ?Stage five ? | ? Stage five ?+ ---+ ---+ -------+ *Each stage assumes the associated GFR level has been in effect for at least three months. ?Stages 1 to 5, with or without kidney disease, indicate chronic kidney disease. Notes: Determination of stages one and two (with eGFR >59mL/min/1.73 m2) requires estimation of kidney damage for at least three months as defined by structural or functional abnormalities of the kidney, manifested by either:Pathological abnormalities or Markers of kidney damage (including abnormalities in the composition of the blood or urine or abnormalities in imaging tests). Lab Interpretation Abnormal (test code = 46503-6) [facility] 14:53:55 Test Item Value Reference Range Interpretation Comments PHOSPHORUS (test code = 7548501582) 5.2 mg/dL 2.5-5.0 H Lab Interpretation (test code = Abnormal 32028-9) [facility] [id number] 14:53:35 Test Item Value Reference Range Interpretation Comments IRON (test code = 2384772396) 42 ug/dL 50-160 L Lab Interpretation (test code = Abnormal 38026-9) [facility] IRON BINDING [id number] 14:32:14 Test Item Value Reference Range Interpretation Comments TIBC (test code = 0729596705) 203 ug/dL 250-410 L Lab Interpretation (test code = Abnormal 26078-0) [facility]2021-05-02 13:47:04 Test Item Value Reference Range Interpretation Comments POCT GLU (test code = 7804230894) 257 mg/dL 70-110 H Lab Interpretation (test code = Abnormal 51288-6) [facility] WITH [id number] 13:08:09 Test Item Value Reference Range Interpretation Comments WBC (test code = See_Comment [Automated 6690-2) message] The sy stem which generated this result transmitted reference range : 4.30 - 11.10 10*3/?L. The reference range was not used to interpret this result as normal/abnormal . RBC (test code = See_Comment L [Automated 789-8) message] The sy stem which generated this result transmitted reference range : 3.93 - 5.25 10*6/?L. The reference range was not used to interpret this result as normal/abnormal . HGB (test code = 9.4 g/dL 11.6-15.0 L 718-7) HCT (test code = 27.9 % 35.7-45.2 L 4544-3) MCV (test code = 91.2 fL 80.6-95.5 787-2) MCH (test code = 30.7 pg 25.9-32.8 785-6) MCHC (test code = 33.7 g/dL 31.6-35.1 786-4) RDW-SD (test code = 48.2 fL 39.0-49.9 63324-4) RDW-CV (test code = 14.6 % 12.0-15.5 788-0) PLT (test code = See_Comment [Automated 777-3) message] The sy stem which generated this result transmitted reference range : 166 - 358 10*3/ ?L. The reference r lucille was not used to interpret this result as normal/abnormal . MPV (test code = 12.3 fL 9.5-12.9 88300-4) NRBC/100 WBC (test See_Comment [Automat ed code = 5505942713) message] The system which generated this result transmitted reference range : 0.0 - 10.0 /100 WBCs. The refer ence range was not u sed to interpret th is result as normal/abnormal . NRBC x10^3 (test code See_Comment [Auto mated = 6339878585) message] The s ystem which generated this result transmitted reference range : 10*3/?L. The reference range was not used to interpret this result as normal/abnormal . GRAN MAT (NEUT) % 78.4 % (test code = 770-8) IMM GRAN % (test code 0.80 % = 4950588046) LYMPH % (test code = 13.1 % 736-9) MONO % (test code = 7.5 % 5905-5) EOS % (test code = 0.0 % 713-8) BASO % (test code = 0.2 % 706-2) GRAN MAT x10^3(ANC) 5.01 10*3/uL 1.88-7.09 (test code = 8764216701) IMM GRAN x10^3 (test 0.05 10*3/uL 0.00-0.06 code = 5470848336) LYMPH x10^3 (test code 0.84 10*3/uL 1.32-3.29 L = 731-0) MONO x10^3 (test code 0.48 10*3/uL 0.33-0.92 = 742-7) EOS x10^3 (test code = <0.03 0.03-0.39 L 711-2) BASO x10^3 (test code <0.03 0.01-0.07 = 704-7) ACANTHOCYTES (test 1+ See_Comment [Automat ed code = 7789-1) message] The system which generated this result transmitted reference range : 1+. The referen ce range was not u sed to interpret th is result as normal/abnormal . POLYCHROMASIA (test 2+ See_Comment [Automa alex code = 06291-7) message] The system which generated this result transmitted reference range : 2+. The referen ce range was not u sed to interpret th is result as normal/abnormal . SCHISTOCYTES (test 1+ A code = 800-3) Lab Interpretation Abnormal (test code = 72216-5) [facility] GLUCOSE (AUTOMATED)2021-05-02 08:11:51 Test Item Value Reference Range Interpretation Comments POCT GLU (test code = 251 mg/dL 70-110 H Notifi ed Provider [id number]) Lab Interpretation (test Abnormal code = 93483-2) [facility] GLUCOSE (AUTOMATED)2021-05-02 02:45:02 Test Item Value Reference Range Interpretation Comments POCT GLU (test code = 5424416268) 341 mg/dL 70-110 H Lab Interpretation (test code = Abnormal 46908-9) [facility]IT[facility], [id number] 00:20:17 Test Item Value Reference Range Interpretation Comments VIT D 25OH (test code = <13 25-80 L 17261-8) INDIRA (test code = INDIRA) Deficiency: <20 ng/mLInsufficiency: 20-24 ng/mLOptimal: 25-80 ng/mL Lab Interpretation (test Abnormal code = 64598-5) [facility] GLUCOSE (AUTOMATED)2021-05-01 22:21:36 Test Item Value Reference Range Interpretation Comments POCT GLU (test code = 1969475573) 335 mg/dL 70-110 H Lab Interpretation (test code = Abnormal 00995-7) [facility] 17:15:46 Test Item Value Reference Range Interpretation Comments PHOSPHORUS (test code = 2304765681) 5.6 mg/dL 2.5-5.0 H Lab Interpretation (test code = Abnormal 40599-2) [facility]CREATINE [id number] 17:15:26 Test Item Value Reference Range Interpretation Comments CK (test code = 6688391033) 80 U/L 33-194 Lab Interpretation (test code = Normal 19014-1) [facility] GLUCOSE (AUTOMATED)2021-05-01 17:10:01 Test Item Value Reference Range Interpretation Comments POCT GLU (test code = 1150167566) 229 mg/dL 70-110 H Lab Interpretation (test code = Abnormal 75103-3) [facility] [id number] 16:04:24 Test Item Value Reference Range Interpretation Comments NT-proBNP (test code 30053 pg/mL See_Comment H [Autom ated = 0698524625) message] The system which generated this result transmitted reference range : <=125. The reference range was not used to interpret this result as normal/abnormal . INDIRA (test code = INDIRA) Biotin has been reported to cause a negative bias, interpret results relative to patient's use of biotin. Lab Interpretation Abnormal (test code = 81533-7) [facility] [id number] 15:24:34 Test Item Value Reference Interpretation Comments Range TROPONIN I (test 0.082 ng/mL See_Comment H [Automated code = 5781467604) message] The system which generated this result transmitted reference range : <=0.034. The reference range was not used to interpret this result as normal/abnormal . INDIRA (test code = Reference (Normal) INDIRA) Range (defined by the 99th percentile reference limit): <= 0.034 ng/mL Note: Cardiac troponin begins to rise 3-4 hours after the onset of ischemia. Repeat in 4-6 hours if the sample was drawn within 3-4 hours of the onset of the symptom and found normal. Diagnosis of myocardial injury is made with acute changes in cTn concentrations with at least one serial sample above the 99th percentile upper reference limit (URL), taken together with the patient's clinical presentation. Biotin has been reported to cause a negative bias, interpret results relative to patient's use of biotin. Lab Interpretation Abnormal (test code = 30714-1) [facility]21-[facility]-01 13:42:17 Test Item Value Reference Range Interpretation Comments POCT GLU (test code = 2478163419) 178 mg/dL 70-110 H Lab Interpretation (test code = Abnormal 61020-3) [facility] HospitalMagnesium [id number] 12:36:00 Test Item Value Reference Range Interpretation Comments MAGNESIUM (test code = 8964593223) 2.5 mg/dL 1.7-2.4 H Lab Interpretation (test code = Abnormal 23593-2) [facility] HospitalHEPATIC FUNCTION PANEL (25476) (ALB,T.PRO,BILI T,BU/BC,ALT,AST,ALK PHOS)2021-05-01 12:36:00 Test Item Value Reference Range Interpretation Comments TOTAL BILI (test code = 0673178394) 0.4 mg/dL 0.1-1.1 BILI UNCON (test code = 0131401278) 0.0 mg/dL 0.1-1.1 L BILI CONJ (test code = 8195780768) 0.0 mg/dL 0.0-0.3 T PROTEIN (test code = 5884465648) 6.0 g/dL 6.3-8.2 L ALBUMIN (test code = 8133738243) 2.9 g/dL 3.5-5.0 L ALK PHOS (test code = 5256974344) 112 U/L 34-122 ALTv (test code = 1742-6) 146 U/L 5-35 H AST(SGOT) (test code = 8101040834) 77 U/L 13-40 H Lab Interpretation (test code = Abnormal 77356-8) [facility] (NA, K, CL, CO2, GLUCOSE, BUN, CREATININE, CA)2021-05-01 12:35:45 Test Item Value Reference Range Interpretation Comments NA (test code = 135 mmol/L 135-145 6053699620) K (test code = 5.5 mmol/L 3.5-5.0 H 3275097612) CL (test code = 110 mmol/L 98-108 H 6841786993) CO2 TOTAL (test code = 17 mmol/L 23-31 L 7063296475) AGAP (test code = 2-16 6704234740) BUN (test code = 66 mg/dL 7-23 H 5168254647) GLUCOSE (test code = 169 mg/dL 70-110 H 7894839061) CREATININE (test code = 3.15 mg/dL 0.50-1.04 H 2350913849) CALCIUM (test code = 8.0 mg/dL 8.6-10.6 L 4016192500) eGFR (test code = mL/min/1.73m2 4914644564) INDIRA (test code = INDIRA) Association of Glomerular Filtration Rate (GFR) and Staging of Kidney Disease* + --+ --+ ------+| GFR (mL/min/1.73 m2) ?| With Kidney Damage ?| ?Without Kidney Damage+ --------+ --------+ +| ?>90 ?| ?Stage one ?| ? Normal ?+ ---+ ---+ -------+| ?60-89 ?| ?Stage two ?| ? Decreased GFR ? + --+ --+ ------+| ?30-59 ?| ?Stage three ?| ? Stage three ? + --+ --+ ------+| ?15-29 ?| ?Stage four ? | ? Stage four ?+ ---+ ---+ -------+| ?<15 (or dialysis) ? ?| ?Stage five ? | ? Stage five ?+ ---+ ---+ -------+ *Each stage assumes the associated GFR level has been in effect for at least three months. ?Stages 1 to 5, with or without kidney disease, indicate chronic kidney disease. Notes: Determination of stages one and two (with eGFR >59mL/min/1.73 m2) requires estimation of kidney damage for at least three months as defined by structural or functional abnormalities of the kidney, manifested by either:Pathological abnormalities or Markers of kidney damage (including abnormalities in the composition of the blood or urine or abnormalities in imaging tests). Lab Interpretation Abnormal (test code = 26747-0) [facility] 12:35:45 Test Item Value Reference Range Interpretation Comments LIPASE (test code = 0854534647) 437 U/L 0-220 H Lab Interpretation (test code = Abnormal 20465-6) [facility] HospitalCBC with [id number] 12:10:14 Test Item Value Reference Range Interpretation Comments WBC (test code = See_Comment [Automated 6690-2) message] The sy stem which generated this result transmitted reference range : 4.30 - 11.10 10*3/?L. The reference range was not used to interpret this result as normal/abnormal . RBC (test code = See_Comment L [Automated 789-8) message] The sy stem which generated this result transmitted reference range : 3.93 - 5.25 10*6/?L. The reference range was not used to interpret this result as normal/abnormal . HGB (test code = 8.9 g/dL 11.6-15.0 L 718-7) HCT (test code = 27.5 % 35.7-45.2 L 4544-3) MCV (test code = 93.2 fL 80.6-95.5 787-2) MCH (test code = 30.2 pg 25.9-32.8 785-6) MCHC (test code = 32.4 g/dL 31.6-35.1 786-4) RDW-SD (test code = 49.1 fL 39.0-49.9 16416-3) RDW-CV (test code = 14.5 % 12.0-15.5 788-0) PLT (test code = See_Comment L [Automated 777-3) message] The sy stem which generated this result transmitted reference range : 166 - 358 10*3/ ?L. The reference r lucille was not used to interpret this result as normal/abnormal . MPV (test code = 12.3 fL 9.5-12.9 36466-4) NRBC/100 WBC (test See_Comment [Automat ed code = 0396342437) message] The system which generated this result transmitted reference range : 0.0 - 10.0 /100 WBCs. The refer ence range was not u sed to interpret th is result as normal/abnormal . NRBC x10^3 (test code See_Comment [Auto mated = 8695137626) message] The s ystem which generated this result transmitted reference range : 10*3/?L. The reference range was not used to interpret this result as normal/abnormal . GRAN MAT (NEUT) % 81.9 % (test code = 770-8) IMM GRAN % (test code 0.90 % = 9032508839) LYMPH % (test code = 11.3 % 736-9) MONO % (test code = 5.8 % 5905-5) EOS % (test code = 0.0 % 713-8) BASO % (test code = 0.1 % 706-2) GRAN MAT x10^3(ANC) 5.49 10*3/uL 1.88-7.09 (test code = 5137631013) IMM GRAN x10^3 (test 0.06 10*3/uL 0.00-0.06 code = 8666607663) LYMPH x10^3 (test code 0.76 10*3/uL 1.32-3.29 L = 731-0) MONO x10^3 (test code 0.39 10*3/uL 0.33-0.92 = 742-7) EOS x10^3 (test code = <0.03 0.03-0.39 L 711-2) BASO x10^3 (test code <0.03 0.01-0.07 = 704-7) Lab Interpretation Abnormal (test code = 89979-0) [facility]PO[facility]2021-05-01 03:05:41 Test Item Value Reference Range Interpretation Comments POCT GLU (test code = 0217500352) 217 mg/dL 70-110 H Lab Interpretation (test code = Abnormal 31066-6) [facility] HospitalGLYCOSYLATED HEMOGLOBIN (A1C)2021-04-30 23:47:17 Test Item Value Reference Range Interpretation Comments HGB A1C (test code = 6.2 % 4.0-5.7 H 4548-4) INDIRA (test code = INDIRA) Reference RangesNormal: <5.7%Prediabetes: 5.7 - 6.4%Diabetes: > 6.5% Lab Interpretation (test Abnormal code = 14149-5) [facility]PO[facility])2021-04-30 23:10:21 Test Item Value Reference Range Interpretation Comments POCT GLU (test code = 4211348072) 258 mg/dL 70-110 H Lab Interpretation (test code = Abnormal 41372-4) [facility] HospitalTROPONIN [id number] 22:27:01 Test Item Value Reference Interpretation Comments Range TROPONIN I (test 0.085 ng/mL See_Comment H [Automated code = 5265343093) message] The system which generated this result transmitted reference range : <=0.034. The reference range was not used to interpret this result as normal/abnormal . INDIRA (test code = Reference (Normal) INDIRA) Range (defined by the 99th percentile reference limit): <= 0.034 ng/mL Note: Cardiac troponin begins to rise 3-4 hours after the onset of ischemia. Repeat in 4-6 hours if the sample was drawn within 3-4 hours of the onset of the symptom and found normal. Diagnosis of myocardial injury is made with acute changes in cTn concentrations with at least one serial sample above the 99th percentile upper reference limit (URL), taken together with the patient's clinical presentation. Biotin has been reported to cause a negative bias, interpret results relative to patient's use of biotin. Lab Interpretation Abnormal (test code = 59306-7) [facility] HospitalLIPID PANEL (78474)(TOTAL CHOLESTEROL, TRIGLYCERIDES, HDL)2021-04-30 21:27:24 Test Item Value Reference Range Interpretation Comments CHOL (test code = 102 mg/dL 120-200 L 9648187142) HDL (test code = 21 mg/dL >50 L 4520113734) HDLC RATIO (test code = See_Comment H [Au tomated message] 8426418675) The system [employer] generated this result transmit alex reference range : <=4.5. The refe rence range was not u sed to interpret th is result as normal/abnormal . TRIG (test code = 136 mg/dL 30-170 8981627012) LDL CHOL (test code = 54 mg/dL See_Comment [Auto mated message] 79198-2) The system [employer] generated this result transmit alex reference range : <=160. The refe rence range was not u sed to interpret th is result as normal/abnormal . VLDL (test code = 27 mg/dL 5-60 3166686353) Lab Interpretation (test Abnormal code = 85964-0) [facility]. METABOLIC PANEL (07878)2021-04-30 13:58:33 Test Item Value Reference Range Interpretation Comments NA (test code = 133 mmol/L 135-145 L 4718665589) K (test code = 5.1 mmol/L 3.5-5.0 H 6570599397) CL (test code = 108 mmol/L 98-108 9553764345) CO2 TOTAL (test code = 18 mmol/L 23-31 L 7647050504) AGAP (test code = 2-16 0411819706) BUN (test code = 63 mg/dL 7-23 H 0759308113) GLUCOSE (test code = 156 mg/dL 70-110 H 2443759051) CREATININE (test code = 3.53 mg/dL 0.50-1.04 H 8595179781) TOTAL BILI (test code = 0.4 mg/dL 0.1-1.4 6724997670) CALCIUM (test code = 7.7 mg/dL 8.6-10.6 L 0787196538) T PROTEIN (test code = 6.5 g/dL 6.3-8.2 9933651468) ALBUMIN (test code = 3.2 g/dL 3.5-5.0 L 1394761244) ALK PHOS (test code = 137 U/L 34-122 H 6560403385) ALTv (test code = 187 U/L 5-35 H 1742-6) AST(SGOT) (test code = 143 U/L 13-40 H 7776072293) eGFR (test code = mL/min/1.73m2 0327443764) INDIRA (test code = INDIRA) Association of Glomerular Filtration Rate (GFR) and Staging of Kidney Disease* + --+ --+ ------+| GFR (mL/min/1.73 m2) ?| With Kidney Damage ?| ?Without Kidney Damage+ --------+ --------+ +| ?>90 ?| ?Stage one ?| ? Normal ?+ ---+ ---+ -------+| ?60-89 ?| ?Stage two ?| ? Decreased GFR ? + --+ --+ ------+| ?30-59 ?| ?Stage three ?| ? Stage three ? + --+ --+ ------+| ?15-29 ?| ?Stage four ? | ? Stage four ?+ ---+ ---+ -------+| ?<15 (or dialysis) ? ?| ?Stage five ? | ? Stage five ?+ ---+ ---+ -------+ *Each stage assumes the associated GFR level has been in effect for at least three months. ?Stages 1 to 5, with or without kidney disease, indicate chronic kidney disease. Notes: Determination of stages one and two (with eGFR >59mL/min/1.73 m2) requires estimation of kidney damage for at least three months as defined by structural or functional abnormalities of the kidney, manifested by either:Pathological abnormalities or Markers of kidney damage (including abnormalities in the composition of the blood or urine or abnormalities in imaging tests). Lab Interpretation Abnormal (test code = 65849-5) [facility] HospitalABORH Confirmation (Lab Only)2021-04-30 13:54:34 Test Item Value Reference Range Interpretation Comments ABO & RH (test code O Positive Performe d at [facility] = 20) Laboratory Serv [facility] [place], [place] [address]Toll Free: [phone] A No. [id number] [facility] HospitalTROPONIN [id number] 13:04:30 Test Item Value Reference Interpretation Comments Range TROPONIN I (test 0.116 ng/mL See_Comment H [Automated code = 8230955055) message] The system which generated this result transmitted reference range : <=0.034. The reference range was not used to interpret this result as normal/abnormal . INDIRA (test code = Reference (Normal) INDIRA) Range (defined by the 99th percentile reference limit): <= 0.034 ng/mL Note: Cardiac troponin begins to rise 3-4 hours after the onset of ischemia. Repeat in 4-6 hours if the sample was drawn within 3-4 hours of the onset of the symptom and found normal. Diagnosis of myocardial injury is made with acute changes in cTn concentrations with at least one serial sample above the 99th percentile upper reference limit (URL), taken together with the patient's clinical presentation. Biotin has been reported to cause a negative bias, interpret results relative to patient's use of biotin. Lab Interpretation Abnormal (test code = 37160-3) [facility] HospitalN-TERMINAL [id number] 13:01:29 Test Item Value Reference Range Interpretation Comments NT-proBNP (test code 28894 pg/mL See_Comment H [Autom ated = 2877034215) message] The system which generated this result transmitted reference range : <=125. The reference range was not used to interpret this result as normal/abnormal . INDIRA (test code = INDIRA) Biotin has been reported to cause a negative bias, interpret results relative to patient's use of biotin. Lab Interpretation Abnormal (test code = 13478-8) [facility] HospitalType and Screen - ONCE [id number] 13:00:01 Test Item Value Reference Range Interpretation Comments ABO & RH (test code O Positive Performe d at [facility] = 20) Laboratory Serv [facility] [address] [place], [place] [address]Toll Free: [phone] A No. [id number] IAT (test code = Negative Performed a t [facility] 1185) Laboratory Serv [facility] [address] [place], [place] [address]Toll Free: [phone] A No. [id number] [facility] HospitalCBC WITH [id number] 12:54:12 Test Item Value Reference Range Interpretation Comments WBC (test code = See_Comment [Automated 9790-2) message] The sy stem which generated this result transmitted reference range : 4.30 - 11.10 10*3/?L. The reference range was not used to interpret this result as normal/abnormal . RBC (test code = See_Comment L [Automated 749-8) message] The sy stem which generated this result transmitted reference range : 3.93 - 5.25 10*6/?L. The reference range was not used to interpret this result as normal/abnormal . HGB (test code = 8.9 g/dL 11.6-15.0 L 718-7) HCT (test code = 27.1 % 35.7-45.2 L 4544-3) MCV (test code = 91.9 fL 80.6-95.5 787-2) MCH (test code = 30.2 pg 25.9-32.8 785-6) MCHC (test code = 32.8 g/dL 31.6-35.1 786-4) RDW-SD (test code = 48.7 fL 39.0-49.9 43628-1) RDW-CV (test code = 14.6 % 12.0-15.5 788-0) PLT (test code = See_Comment [Automated 777-3) message] The sy stem which generated this result transmitted reference range : 166 - 358 10*3/ ?L. The reference r lucille was not used to interpret this result as normal/abnormal . MPV (test code = 12.4 fL 9.5-12.9 14833-3) NRBC/100 WBC (test See_Comment [Automat ed code = 3162499713) message] The system which generated this result transmitted reference range : 0.0 - 10.0 /100 WBCs. The refer ence range was not u sed to interpret th is result as normal/abnormal . NRBC x10^3 (test code See_Comment [Auto mated = 9040187617) message] The s ystem which generated this result transmitted reference range : 10*3/?L. The reference range was not used to interpret this result as normal/abnormal . GRAN MAT (NEUT) % 85.2 % (test code = 770-8) IMM GRAN % (test code 1.00 % = 6853254558) LYMPH % (test code = 8.5 % 736-9) MONO % (test code = 4.6 % 5905-5) EOS % (test code = 0.5 % 713-8) BASO % (test code = 0.2 % 706-2) GRAN MAT x10^3(ANC) 7.02 10*3/uL 1.88-7.09 (test code = 2569026015) IMM GRAN x10^3 (test 0.08 10*3/uL 0.00-0.06 H code = 3006576326) LYMPH x10^3 (test code 0.70 10*3/uL 1.32-3.29 L = 731-0) MONO x10^3 (test code 0.38 10*3/uL 0.33-0.92 = 742-7) EOS x10^3 (test code = 0.04 10*3/uL 0.03-0.39 711-2) BASO x10^3 (test code <0.03 0.01-0.07 = 704-7) Lab Interpretation Abnormal (test code = 33035-6) [facility] 12:52:27 Test Item Value Reference Range Interpretation Comments LIPASE (test code = 6441724464) 566 U/L 0-220 H Lab Interpretation (test code = Abnormal 71082-8) [facility] HospitalACTIVATED PARTIAL THRMPLAS [id number] 12:41:03 Test Item Value Reference Range Interpretation Comments APTT Patient (test See_Comment [Automat ed code = 3173-2) message] The system which generated this result transmitted reference range : 23 - 38 Seconds . The reference range was not used to interpr et this result as normal/abnormal . INDIRA (test code = INDIRA) The [facility] patient population mean normal value for aPTT is 30 seconds. Lab Interpretation Normal (test code = 80538-3) [facility] HospitalPROTHROMBIN TIME / [id number] 12:35:26 Test Item Value Reference Range Interpretation Comments PROTIME PATIENT (test See_Comment [Auto mated message] code = 5964-2) The system wh ich generated this result transmitted ref erence range: 12.0 - 1 4.7 Seconds. The re ference range was not u sed to interpret this result as normal/abnor mal. INR (test code = 6301-6) Nor mal INR <1.1; Warfarin Therap eutic range 2.0 to 3. 0 or 2.5 to 3.5, dep ending upon the indica tions. Lab Interpretation (test Normal code = 28917-4) [facility]"
[2021-11-23 08:20] LABS: Albumin, (SPE) 3.0 (L) g/dL
[2021-11-23 08:21] LABS: Alpha-1-Globulins 0.4 (H) g/dL
[2021-11-23 08:22] LABS: Alpha-2-Globulins 1.1 (H) g/dL
[2021-11-23 08:23] LABS: Gamma Globulins 0.9 g/dL
[2021-11-23 08:28] LABS: INTERPRETATION REPORT; Immunoglobulin M 34 (L) mg/dL
[2021-11-23 08:29] LABS: Immunoglobulin A 253 mg/dL; Immunoglobulin G 1015 mg/dL
== END 2021-11-11 14:31 | disposition home or self-care (01) | DRG 291 ==
LOC: ER 13:51 → ERHOLD 19:19 → 2ND 21:04
PROVIDERS: ADMIT Internal Medicine; ATTEND Internal Medicine
DX: I13.2 Hypertensive heart and chronic kidney disease with heart failure and with stage 5 chronic kidney disease, or end stage renal disease (principal); I50.43 Acute on chronic combined systolic (congestive) and diastolic (congestive) heart failure; N18.5 Chronic kidney disease, stage 5; E11.22 Type 2 diabetes mellitus with diabetic chronic kidney disease; E11.65 Type 2 diabetes mellitus with hyperglycemia; I27.20 Pulmonary hypertension, unspecified; I37.1 Nonrheumatic pulmonary valve insufficiency; I25.10 Atherosclerotic heart disease of native coronary artery without angina pectoris; E11.21 Type 2 diabetes mellitus with diabetic nephropathy; D63.8 Anemia in other chronic diseases classified elsewhere; Z20.822 Contact with and (suspected) exposure to COVID-19
CPT/HCPCS: 36415; 71045; 76770; 80048; 80053; 80061; 80076; 81001; 82550; 82570; 82784; 82947; 83036; 83735; 83880; 84100; 84156; 84165; 84439; 84443; 84484; 84550; 85025; 85610; 86038; 86334; 86704; 86706; 86803; 87340; 93005; 93306; 99285; J1644; J1815; J1940; U0003

== ENCOUNTER 2022-10-25 10:47 | Emergency (ER) | payer OTHER ==
--- OUTSIDE RECORDS SUMMARY | 2022-10-25 11:02 | XMS REPORT | Continuity of Care Document ---
:1960 Author Organization [facility] t Address [address] [place] [address] [address] [place] [address] Care Team Providers Name Role Phone Pcp, Patient Does Not Have A Primary Care Physician [phone] Doctor Unassigned, [place] Attending Clinician Unavailable Lisette Enamorado MD Attending Clinician [phone] LISETTE ENAMORADO Attending Clinician Unavailable Annabel Valerio RN Attending Clinician Unavailable Rj Rosenthal MD Attending Clinician Hillary Antoine MD Attending Clinician Nelly Schultz MD Attending Clinician Jeffry ABEL, [facility] Attending Clinician Sonia Solorzano Attending Clinician CHAPIS GUPTA Attending Clinician Unavailable Link ABEL, Julianna Ayala Attending Clinician Pob, [facility] Attending Clinician Unavailable Rhoda Bray MD Attending Clinician RHODA BRAY Attending Clinician Unavailable Remy Denson MD Attending Clinician Aby Lennon DO Attending Clinician ABY LENNON Attending Clinician Unavailable LISETTE ENAMORADO Admitting Clinician Unavailable Lisette Enamorado MD Admitting Clinician [phone] Aby Lennon DO Admitting Clinician ABY LENNON Admitting Clinician Unavailable Payers Payer Name Policy Type Policy Number Effective Date Expiration Date S ource Problems Condition Condition Condition Status Onset Resolution Last Treating Co mments Source Name Details Category Date Date Treatment Clinician Date Shortness Shortness Disease Active Uni vers of breath of breath 05-01 ity of 00:00: Medical Branch Refractory Refractory Disease Active Overview : Univers angina angina 05-01 Formattin ity of pectoris pectoris 00:00: g of this [place] 00 note Medical might be Branch different from the original. Added automatic ally from request for surgery [id number] Stage 4 Stage 4 Disease Active Univers chronic chronic 05-01 ity of kidney kidney 00:00: [place] disease disease 00 Medical Branch Essential Essential Disease Active Uni vers hypertensi hypertensi 07 it y of on on 00:00: Medical Branch Acute on Acute on Disease Active Unive rs chronic chronic 107 ity of systolic systolic 00:00: [place] and and 00 Medical diastolic diastolic Bran ch heart heart failure, failure, NYHA class NYHA class 3 3 Dyslipidem Dyslipidem Disease Active U nivers ia ia 07 ity of 00:00: [place] [facility] Type 2 Type 2 Disease Active Univers diabetes diabetes 07 ity of mellitus mellitus 00:00: [place] with other with other 00 Me dical specified specified Bran ch complicati complicati on on COVID-19 COVID-19 Disease Active Unive rs 1-06 ity of 00:00: [place] [facility] Obesity Obesity Disease Active Univers (BMI (BMI 1-06 ity of 30-39.9) 30-39.9) 00:00: [place] [facility] LUGO LUGO Disease Active Univers (dyspnea (dyspnea 1-06 ity of on on 00:00: [place] exertion) exertion) 00 Medi jeremiah Branch Elevated Elevated Disease Active Unive rs troponin I troponin I 1-06 it y of level level 00:00: [place] 00 Medical Branch Elevated Elevated Disease Active Unive rs brain brain 1-06 ity of natriureti natriureti 00:[place] c peptide c peptide 00 Medi jeremiah (BNP) (BNP) Branch level level Allergies, Adverse Reactions, Alerts Allergy Allergy Status Severity Reaction(s) Onset Inactive Treating Comm ents Source Name Type Date Date Clinician NO KNOWN Drug Active Univers ALLERGIE Class ity of S [place] [facility] Social History Social Habit Start Date Stop Date Quantity Comments Source History SDOH Social Unive rsity of Connections Get [place] Med ical Together Branch History SDOH Social Unive rsity of Connections [facility] Medical Branch History SDOH Social Unive rsity of Connections [place] [facility] Membership Branch History SDAL Social Unive rsity of Connections [place] [facility] Meetings Branch Exposure to 2022-05-31 2022-06-10 Not sure University of SARS-CoV-2 (event) 00:00:00 09:37:00 [place] [facility] Alcohol intake 2022-05-25 2022-05-25 Ex-drinker University 00:00:00 00:00:00 (finding) [place] [facility] History SDOH Social 2022-05-25 2022-05-25 3 Unive rsity of Connections Living 00:00:00 00:00:00 [place] [facility] History SDOH 2022-05-25 2022-05-25 1 University o f Financial 00:00:00 00:00:00 [place] [facility] History SDOH Food 2022-05-25 2022-05-25 3 Univers ity of Worry 00:00:00 00:00:00 [place] [facility] History SDOH Food 2022-05-25 2022-05-25 1 Univers ity of Scarcity 00:00:00 00:00:00 [place] [facility] History SDOH 2022-05-25 2022-05-25 1 University o f Transport Med 00:00:00 00:00:00 [place] Medic al [facility] History SDOH 2022-05-25 2022-05-25 1 University o f Transport Non-Med 00:00:00 00:00:00 [place] M edical [facility] History SDOH 2022-05-04 2022-05-04 1 University o f Alcohol Frequency 00:00:00 00:00:00 [place] M edical Branch History SDOH 2022-05-04 2022-05-04 0 University o f Alcohol Std Drinks 00:00:00 00:00:00 [place] [facility] History SDOH 2022-05-04 2022-05-04 1 University o f Alcohol Binge 00:00:00 00:00:00 [place] [facility] al Branch History SDOH Social 2022-05-04 2022-05-04 [facility] Phone 00:[facility]:00 00:00:00 [facility] edical Branch History SDOH 2022-05-04 2022-05-04 0 University o f Physical Activity 00:00:00 00:00:00 [facility] edical DPW Branch History SDAL 2022-05-04 2022-05-04 0 University o f Physical Activity 00:00:00 00:00:00 [facility] MPS Branch Sex [birth year] At [birth year] Universit y of 00:00:00 00:00:00 [facility] Smoking Status Start Date Stop Date Source Never smoked tobacco [facility] Medications Ordered Filled Start Stop Current Ordering Indication Dosage Frequency Signature Comments Components Source Medication Medication Date Date Medication? Clinician (SIG) Name Name carvediloL Yes [id number] 25mg Take 1 Univers 25 mg 3-30 9103 tablet by ity of tablet 00:00: mouth 2 00 (two) Medical times Branch daily with meals. furosemide Yes [id number] 80mg Take 1 Univers 80 mg 3-30 9103 tablet by ity of tablet 00:00: mouth [place] 00 every Medical morning Branch and evening. isosorbide Yes [id number] 30mg Take 1 Univers mononitrate 3-30 9103 tablet by ity of 30 mg 24 hr 00:00: mouth [place] tablet 00 daily. Medical Branch pantoprazol Yes [id number] 40mg Take 1 Univers e 40 mg EC 3-30 9103 tablet by ity of tablet 00:00: mouth [place] 00 daily. Medical Branch aspirin 81 Yes [id number] 81mg Take 1 Univers mg chewable 3-30 9103 tablet by ity of tablet 00:00: mouth [place] 00 daily. Medical Branch losartan 25 0 Yes [id number] 50mg Take 2 Univers mg tablet 3-03 tablets by ity of 00:00: mouth [place] 00 daily. Medical Branch insulin 0 Yes [id number] 10U inject 10 U nivers glargine 2-02 Units ity of 100 unit/mL 00:00: under the [place] injection 00 skin every Medi jeremiah 24 Branch (twenty-fo ur) hours. insulin 2022-0 Yes [id number] 10U inject 10 U nivers glargine 2-02 Units ity of 100 unit/mL 00:00: under the [place] injection 00 skin every Medi jeremiah 24 Branch (twenty-fo ur) hours. insulin 0 Yes [id number] 10U inject 10 U nivers glargine 2-02 Units ity of 100 unit/mL 00:00: under the [place] injection 00 skin every Medi jeremiah 24 Branch (twenty-fo ur) hours. insulin 0 Yes [id number] 10U inject 10 U nivers glargine 2-02 Units ity of 100 unit/mL 00:00: under the [place] injection 00 skin every Medi jeremiah 24 Branch (twenty-fo ur) hours. insulin 2022-0 Yes [id number] 10U inject 10 U nivers glargine 2-02 Units ity of 100 unit/mL 00:00: under the [place] injection 00 skin every Medi jeremiah 24 Branch (twenty-fo ur) hours. insulin 0 Yes [id number] 10U inject 10 U nivers glargine 2-02 Units ity of 100 unit/mL 00:00: under the [place] injection 00 skin every Medi jeremiah 24 Branch (twenty-fo ur) hours. NaCl 0.9% 0 2022- No 5mL 5 mL, Slow U nivers (NS) 2-01 02-02 IV Push, ity of injection 5 22:30: 01:00 ONCE, 1 [place] mL 00 :00 dose, On Tue05/26/22 Branch at 1630, Routine heparin 2022-0 Yes 2000U 2,000 Univers 1,000 2-01 Units, ity of unit/mL 22:22: Slow IV [place] injection 20 Push, PRN Medic al 2,000 Units - SEE Branch INSTRUCTIO NS, Starting on Tue05/26/22 at 1622, Until Discontinu ed, Routine, dialysis catheter care insulin Yes 2U 2 Units, Univer s glargine 2 Subcutaneo ity o f (LANTUS 14:00: us, Q24H, [place] U-100) 00 First dose Medical injection 2 on Tue Branch Units 05/26/22 at 0800, Until Discontinu ed, Routine losartan 2022- No [id number] 75mg Take 3 Univers mg tablet 05-26 tablets by ity of 00:00: 05:59 mouth [place] 00 :00 daily for Medical 30 days. Branch insulin 2022- No [id number] 5U inject 5 Univers lispro, 05-26 9103 Units ity of human, 00:00: 05:59 under the [place] (ADMELOG 00 :00 skin 3 Medical U-100 (three) Branch INSULIN times LISPRO) 100 daily unit/mL before injection meals for 30 days. losartan 2022- No [id number] 75mg Take 3 Univers mg tablet 05-26 tablets by ity of 00:00: 05:59 mouth [place] 00 :00 daily for Medical 30 days. Branch insulin 2022- No [id number] 5U inject 5 Univers lispro, 05-26 9103 Units ity of human, 00:00: 05:59 under the [place] (ADMELOG 00 :00 skin 3 Medical U-100 (three) Branch INSULIN times LISPRO) 100 daily unit/mL before injection meals for 30 days. losartan 2022- No [id number] 75mg Take 3 Univers mg tablet 05-26 tablets by ity of 00:00: 05:59 mouth [place] 00 :00 daily for Medical 30 days. Branch insulin 2022- No [id number] 5U inject 5 Univers lispro, 05-26 9103 Units ity of human, 00:00: 05:59 under the [place] (ADMELOG 00 :00 skin 3 Medical U-100 (three) Branch INSULIN times LISPRO) 100 daily unit/mL before injection meals for 30 days. losartan 2022- No [id number] 75mg Take 3 Univers mg tablet 05-26 tablets by ity of 00:00: 05:59 mouth [place] 00 :00 daily for Medical 30 days. Branch insulin 2022- No [id number] 5U inject 5 Univers lispro, 05-26 9103 Units ity of human, 00:00: 05:59 under the [place] (ADMELOG 00 :00 skin 3 Medical U-100 (three) Branch INSULIN times LISPRO) 100 daily unit/mL before injection meals for 30 days. iron No 300mg 300 mg, IV Unive rs sucrose 05-25 Infusion, ity of (VENOFER) 18:15: :23 ONCE, [place] 300 mg in 00 :00 Administer Medi jeremiah NaCl 0.9% over 1.5 Branch (NS) 250 mL Hours, On infusion Tue05/25/22 at 1215, For 1 dose losartan Yes 75mg 75 mg, Univers (COZAAR) 05-25 Oral, ity of tablet 75 15:00: DAILY, [place] mg 00 First dose Medical (after Branch last modificati on) on Tue05/25/22 at 0900, Until Discontinu ed, Routine sennosides- 2022- No [id number] 1{tbl} Take 1 Univers docusate 05-25 tablet by ity o f sodium 00:00: 05:59 mouth 2 [place] 8.6-50 mg 00 :00 (two) Medical per tablet times Branch daily as needed for Constipati on for up to 30 days. spironolact 2022- No [id number] 12.5mg Take 0.5 Univers one 25 mg 05-25 9103 tablets by ity of tablet 00:00: 05:59 mouth [place] 00 :00 daily for Medical 30 days. Branch sennosides- 2022- No [id number] 1{tbl} Take 1 Univers docusate 05-25 tablet by ity o f sodium 00:00: 05:59 mouth 2 [place] 8.6-50 mg 00 :00 (two) Medical per tablet times Branch daily as needed for Constipati on for up to 30 days. spironolact 2022- No [id number] 12.5mg Take 0.5 Univers one 25 mg 05-25 9103 tablets by ity of tablet 00:00: 05:59 mouth [place] 00 :00 daily for Medical 30 days. [place] [facility] 20[facility]- No [id number] 1{tbl} Take 1 Univers docusate 05-25 tablet by ity o f sodium 00:00: 05:59 mouth 2 [place] 8.6-50 mg 00 :00 (two) Medical per tablet times [place] daily as needed for Constipati on for up to 30 days. spironolact 2022- No [id number] 12.5mg Take 0.5 Univers one 25 mg 05-25 9103 tablets by ity of tablet 00:00: 05:59 mouth [place] 00 :00 daily for Medical 30 days. [place] [facility] 2022- No [id number] 1{tbl} Take 1 Univers docusate 05-25 tablet by ity o f sodium 00:00: 05:59 mouth 2 [place] 8.6-50 mg 00 :00 (two) Medical per tablet times [place] daily as needed for Constipati on for up to 30 days. spironolact 2022- No [id number] 12.5mg Take 0.5 Univers one 25 mg 05-25 9103 tablets by ity of tablet 00:00: 05:59 mouth [place] 00 :00 daily for Medical 30 days. [place] NaCl 0.9% 2022- No 5mL 5 mL, Slow U nivers (NS) 05-24 IV Push, ity of injection 5 19:00: 19:00 ONCE, 1 [place] mL 00 :00 dose, On Medical Mon Branch 05/24/22 at 1300, Routine heparin Yes 2000U PRN - SEE Univ ers 1,000 05-24 INSTRUCTIO ity of unit/mL 18:57: NS, [place] injection 56 Starting Medica l 2,000 Units on Mon [place] 05/24/22 at 1257, Until Discontinu ed, Routine
For Priming of Ports:&nbs p; &n bsp; After initial saline flush, prime each port with heparin according to the priming volume listed on each catheter port for catheter lock.
NaCl 0.9% 2022- No 5mL 5 mL, Slow U nivers (NS) 05-21 IV Push, ity of injection 5 18:15: 18:34 ONCE, 1 [place] mL 00 :00 dose, On Medical [facility] [place] Branch 05/21/22 at 1215, Routine heparin Yes 2000U PRN - SEE Univ ers 1,000 05-21 INSTRUCTIO ity of unit/mL 18:08: NS, [place] injection 11 Starting Medica l 2,000 Units on [facility] [place] Branch 05/21/22 at 1208, Until Discontinu ed, Routine
For Priming of Ports:&nbs p; &n bsp; After initial saline flush, prime each port with heparin according to the priming volume listed on each catheter port for catheter lock.
spironolact Yes 12.5mg 12.5 mg, Univers one 05-20 Oral, ity of (ALDACTONE) 15:00: DAILY, [place] tablet 12.5 00 First dose Me dical mg on [facility] Branch 05/20/22 at 0900, Until Discontinu ed, Routine losartan 2022- No 50mg 50 mg, Univer s (COZAAR) 05-20 Oral, ity of tablet 50 15:00: 17:52 DAILY, [place] mg 00 :10 First dose Medical (after Branch last modificati on) on [facility] 05/20/22 at 0900, Until Discontinu ed, Routine aspirin 81 0 Yes [id number] 81mg Take 1 Univers mg chewable 05-20 9103 tablet by ity of tablet 00:00: mouth [place] 00 daily. Medical Branch pantoprazol Yes [id number] 40mg Take 1 Univers e 40 mg EC 05-20 9103 tablet by ity of tablet 00:00: mouth [place] 00 daily. Medical Branch isosorbide Yes [id number] 30mg Take 1 Univers mononitrate 05-20 9103 tablet by ity of 30 mg 24 hr 00:00: mouth [place] tablet 00 daily. Medical Branch aspirin 81 0 Yes [id number] 81mg Take 1 Univers mg chewable 05-20 9103 tablet by ity of tablet 00:00: mouth [place] 00 daily. Medical Branch pantoprazol 0 Yes [id number] 40mg Take 1 Univers e 40 mg EC 05-20 9103 tablet by ity of tablet 00:00: mouth [place] 00 daily. Medical Branch isosorbide 0 Yes [id number] 30mg Take 1 Univers mononitrate 05-20 9103 tablet by ity of 30 mg 24 hr 00:00: mouth [place] tablet 00 daily. Medical Branch aspirin 81 0 Yes [id number] 81mg Take 1 Univers mg chewable 05-20 9103 tablet by ity of tablet 00:00: mouth [place] 00 daily. Medical Branch pantoprazol Yes [id number] 40mg Take 1 Univers e 40 mg EC 05-20 9103 tablet by ity of tablet 00:00: mouth [place] 00 daily. Medical Branch isosorbide 0 Yes [id number] 30mg Take 1 Univers mononitrate 05-20 9103 tablet by ity of 30 mg 24 hr 00:00: mouth [place] tablet 00 daily. Medical Branch aspirin 81 0 Yes [id number] 81mg Take 1 Univers mg chewable 05-20 9103 tablet by ity of tablet 00:00: mouth [place] 00 daily. Medical Branch pantoprazol 0 Yes [id number] 40mg Take 1 Univers e 40 mg EC 05-20 9103 tablet by ity of tablet 00:00: mouth [place] 00 daily. Medical Branch isosorbide 0 Yes [id number] 30mg Take 1 Univers mononitrate 05-20 9103 tablet by ity of 30 mg 24 hr 00:00: mouth [place] tablet 00 daily. Medical Branch losartan 50 0 2022- No [id number] 50mg Take 1 Univers mg tablet 05-20 9103 tablet by ity of 00:00: 00:00 mouth [place] 00 :00 daily. Medical Branch spironolact 2022- No [id number] 12.5mg Take half Univers one 25 mg 05-20 9103 a tablet ity o f tablet 00:00: 00:00 by mouth [place] 00 :00 daily. Medical Branch carvediloL 0 Yes 25mg 25 mg, Unive rs (COREG) 1-25 Oral, BID ity of tablet 25 23:00: MEALS, [place] mg 00 First dose Medical (after Branch last modificati on) on Tue05/19/22 at 1700, Until Discontinu ed, Routine heparin 0 Yes 2000U PRN - SEE Univ ers 1,000 1-25 INSTRUCTIO ity of unit/mL 19:51: NS, [place] injection 17 Starting Medica l 2,000 Units on Tue05/19/22 at 1351, Until Discontinu ed, Routine
For Priming of Ports:&nbs p; &n bsp; After initial saline flush, prime each port with heparin according to the priming volume listed on each catheter port for catheter lock.
losartan 2022- No 50mg 50 mg, Univer s (COZAAR) -19 05- Oral, ity of tablet 50 15:00: 17:30 DAILY, [place] mg 00 :23 First dose Medical on Tue Branch 05/19/22 at 0900, Until Discontinu ed, Routine furosemide 0 Yes [id number] 80mg Take 1 Univers 80 mg 1-25 9103 tablet by ity of tablet 00:00: mouth [place] 00 every Medical morning Branch and evening. carvediloL 0 Yes [id number] 25mg Take 1 Univers 25 mg 1-25 9103 tablet by ity of tablet 00:00: mouth 2 [place] 00 (two) Medical times Branch daily with meals. nitroglycer [id number] 1 Univers in 0.4 mg 1-25 9103 tablet ity of sublingual 00:00: under the [place] tablet 00 tongue Medical every 5 Branch (five) minutes as needed for Chest pain. furosemide 0 Yes [id number] 80mg Take 1 Univers 80 mg 1-25 9103 tablet by ity of tablet 00:00: mouth [place] 00 every Medical morning Branch and evening. carvediloL 0 Yes [id number] 25mg Take 1 Univers 25 mg 1-25 9103 tablet by ity of tablet 00:00: mouth 2 [place] 00 (two) Medical times Branch daily with meals. nitroglycer 2022-[id number] 1 Univers in 0.4 mg 1-25 9103 tablet ity of sublingual 00:00: under the [place] tablet 00 tongue Medical every 5 Branch (five) minutes as needed for Chest pain. furosemide 2022-0 Yes [id number] 80mg Take 1 Univers 80 mg 1-25 9103 tablet by ity of tablet 00:00: mouth [place] 00 every Medical morning Branch and evening. carvediloL 2022-0 Yes [id number] 25mg Take 1 Univers 25 mg 1-25 9103 tablet by ity of tablet 00:00: mouth 2 [place] 00 (two) Medical times Branch daily with meals. nitroglycer 2022-[id number] 1 Univers in 0.4 mg 1-25 9103 tablet ity of sublingual 00:00: under the [place] tablet 00 tongue Medical every 5 Branch (five) minutes as needed for Chest pain. nitroglycer 2022-[id number] 1 Univers in 0.4 mg 1-25 9103 tablet ity of sublingual 00:00: under the [place] tablet 00 tongue Medical every 5 Branch (five) minutes as needed for Chest pain. nitroglycer 2022-[id number] 1 Univers in 0.4 mg 1-25 9103 tablet ity of sublingual 00:00: under the [place] tablet 00 tongue Medical every 5 Branch (five) minutes as needed for Chest pain. furosemide 2022-0 Yes [id number] 80mg Take 1 Univers 80 mg 1-25 9103 tablet by ity of tablet 00:00: mouth [place] 00 every Medical morning Branch and evening. carvediloL 2022-0 Yes [id number] 25mg Take 1 Univers 25 mg 1-25 9103 tablet by ity of tablet 00:00: mouth 2 [place] 00 (two) Medical times Branch daily with meals. nitroglycer 2022-[id number] 1 Univers in 0.4 mg 1-25 9103 tablet ity of sublingual 00:00: under the [place] tablet 00 tongue Medical every 5 Branch (five) minutes as needed for Chest pain. insulin 2022-0 202- No [id number] 12U inject 12 Univers glargine 1-25 02-25 9103 Units ity of 100 unit/mL 00:00: 05:59 under the [place] injection 00 :00 skin at [facility] for 30 days. insulin 2022- No [id number] 12U inject 12 Univers glargine 05-19 9103 Units ity of 100 unit/mL 00:00: 05:59 under the [place] injection 00 :00 skin at [facility] for 30 days. insulin 2022- No [id number] 12U inject 12 Univers glargine 05-19 9103 Units ity of 100 unit/mL 00:00: 05:59 under the [place] injection 00 :00 skin at [facility] for 30 days. insulin 2022- No [id number] 12U inject 12 Univers glargine 05-19 9103 Units ity of 100 unit/mL 00:00: 05:59 under the [place] injection 00 :00 skin at [facility] for 30 days. insulin 2022- No [id number] 3U inject 3 Univers lispro, 05-19 9103 Units ity of human, 00:00: 00:00 under the [place] (ADMELOG 00 :00 skin 3 Medical U-100 (three) Branch INSULIN times LISPRO) 100 daily with unit/mL meals. injection morpHINE (2 No 2mg 2 mg, Slow Univers mg/mL) 05-17 IV Push, ity of injection 2 23:03: 23:08 ONCE, 1 [place] mg 00 :00 dose, On [facility] 05/17/22 at 1715, Routine iopamidol 2022- No ONCE INTRA U nivers (ISOVUE 05-17 PROCEDURE, ity o f 370-500 mL) 21:47: 21:58 [place] injection 07 :33 on [facility] 05/17/22 at Branch 1547, Until Tue05/17/22 at 1558, Routine, CV Intraproce dure lidocaine 2022- No ONCE INTRA U nivers 1% (PF) 05-17 PROCEDURE, ity o f (XYLOCAINE) 21:12: 21:58 Starting [place] injection 19 :33 on [facility] 05/17/22 at Branch 1512, Until Tue05/17/22 at 1558, Routine, CV Intraproce dure midazolam 2022- No ONCE INTRA U nivers (VERSED) 05-17 PROCEDURE, ity of injection 21:04: 21:58 Starting [place] 15 :33 on Tue [facility] 05/17/22 at Branch 1504, Until Tue05/17/22 at 1558, Routine, CV Intraproce dure FENTanyl PF 2022- No ONCE INTRA Univers (SUBLIMAZE 05-17 PROCEDURE, it y of (PF)) 21:04: 21:58 Starting [place] injection 15 :33 on Tue [facility] 05/17/22 at Branch 1504, Until Tue05/17/22 at 1558, Routine, CV Intraproce dure carvediloL Yes 12.5mg 12.5 mg, U nivers (COREG) 05-17 Oral, BID ity of tablet 12.5 18:15: MEALS, [place] mg 00 First dose Medical on [facility] 05/17/22 at 1215, Until Discontinu ed, Routine carvediloL 2022- No 12.5mg 12.5 mg, Univers (COREG) 05-17 Oral, BID ity of tablet 12.5 18:15: 17:30 MEALS, [place] mg 00 :23 First dose Medical on [facility] 05/17/22 at 1215, Until Discontinu ed, Routine NaCl 0.9% 2022- No 5mL 5 mL, Slow U nivers (NS) 05-17 IV Push, ity of injection 5 13:45: 14:51 ONCE, 1 [place] mL 00 :00 dose, On Medical [facility] 05/17/22 at 0745, Routine heparin Yes 2000U PRN - SEE Univ ers 1,000 05-17 INSTRUCTIO ity of unit/mL 13:41: NS, [place] injection 07 Starting Medica l 2,000 Units on [facility] 05/17/22 at 0741, Until Discontinu ed, Routine
For Priming of Ports:&nbs p; &n bsp; After initial saline flush, prime each port with heparin according to the priming volume listed on each catheter port for catheter lock.
heparin 2022- No 2000U PRN - SEE Uni vers 1,000 05-17 INSTRUCTIO ity of unit/mL 13:41: 23:58 NS, [place] injection 07 :50 Starting Medica l 2,000 Units on Mon Branch 05/17/22 at 0741, Until 05/18/22 at 1758, Routine
For Priming of Ports:&nbs p; &n bsp; After initial saline flush, prime each port with heparin according to the priming volume listed on each catheter port for catheter lock.
D10W 10 % Yes at 20-40 Univ ers IV infusion 1-22 mL/hr, IV ity of 21:06: Infusion, [place] 15 TITRATE, [facility] Starting Branch on 05/16/22 at 1506, Until Discontinu ed, Routine D10W 10 % Yes at 20-40 Univ ers IV infusion 1-22 mL/hr, IV ity of 21:06: Infusion, [place] 15 TITRATE, [facility] Starting Branch on 05/16/22 at 1506, Until Discontinu ed, Routine lidocaine 2022- No PRN, Univers 1% (PF) 05-14 Starting ity of (XYLOCAINE) 20:43: 20:43 on Fri [place] injection 49 :49 05/14/[address] [facility] jeremiah 1443, Branch Until 05/14/22 at 1443, Routine FENTanyl PF 2022- No Slow IV Un aleksandar (SUBLIMAZE 05-14 Push, PRN, it y of (PF)) 20:41: 20:41 Starting [place] injection 00 :00 on Fri Medical 05/14/22 at Branch 1441, Until 05/14/22 at 1441, Routine midazolam 2022- No IV Push, Uni vers (VERSED) 05-14 PRN, ity of injection 20:41: 20:41 Starting [place] 00 :00 on Fri Medical 05/14/22 at Branch 1441, Until 05/14/22 at 1441, Routine ceFAZolin 2022- No Slow IV Univ ers (ANCEF) 1-20 01-20 Push, PRN, ity o f injection 20:25: 20:25 Starting [place] 00 :00 on Tue Medical 05/14/22 at Branch 1425, Until Tue05/14/22 at 1425, CARLITOS heparin Yes 2000U PRN - SEE Univ ers 1,000 05-14 INSTRUCTIO ity of unit/mL 14:13: NS, [place] injection 51 Starting Medica l 2,000 Units on Tue Branch 05/14/22 at 0813, Until Discontinu ed, Routine
For Priming of Ports:&nbs p; &n bsp; After initial saline flush, prime each port with heparin according to the priming volume listed on each catheter port for catheter lock.
heparin 2022- No 2000U PRN - SEE Uni vers 1,000 05-14 INSTRUCTIO ity of unit/mL 14:13: 23:58 NS, [place] injection 51 :50 Starting Medica l 2,000 Units on Tue Branch 05/14/22 at 0813, Until Tue05/18/22 at 1758, Routine
For Priming of Ports:&nbs p; &n bsp; After initial saline flush, prime each port with heparin according to the priming volume listed on each catheter port for catheter lock.
heparin Yes 2000U PRN - SEE Univ ers 1,000 05-12 INSTRUCTIO ity of unit/mL 18:49: NS, [place] injection 07 Starting Medica l 2,000 Units on Tue Branch 05/12/22 at 1249, Until Discontinu ed, Routine
For Priming of Ports:&nbs p; &n bsp; After initial saline flush, prime each port with heparin according to the priming volume listed on each catheter port for catheter lock.
HYDROcodone 2022- No 1{tbl} 1 tablet, Univers -acetaminop 05-12 Oral, ity of hen (NORCO 02:45: 02:47 ONCE, 1 [place] 5) 5-325 mg 00 :00 dose, On Medi jeremiah tablet 1 Tue Branch tablet 05/11/22 at 2045, Routine metOLazone 2022- No 5mg 5 mg, Unive rs (ZAROXOLYN) 05-11 Oral, ity of tablet 5 mg 15:00: 21:03 DAILY, [place] 00 :44 First dose Medical on [facility] 05/11/22 at 0900, Until Discontinu ed, Routine acetaminoph 0 Yes 650mg 650 mg, Un aleksandar en 05-11 Oral, ity of (TYLENOL) 14:44: Q6HPRN, [place] tablet 650 38 Starting Medic al mg on [facility] 05/11/22 at 0844, Until Discontinu ed, Routine, Pain (scale 1-3), headaches acetaminoph Yes 650mg 650 mg, Un aleksandar en 05-11 Oral, ity of (TYLENOL) 14:44: Q6HPRN, [place] tablet 650 38 Starting Medic al mg on [facility] 05/11/22 at 0844, Until Discontinu ed, Routine, Pain (scale 1-3), headaches NaCl 0.9% 2022- No 5mL 5 mL, Slow U nivers (NS) 05-10 IV Push, ity of injection 5 20:30: 22:06 ONCE, 1 [place] mL 00 :00 dose, On Medical [facility] 05/10/22 at 1430, Routine heparin Yes 2000U PRN - SEE Univ ers 1,000 05-10 INSTRUCTIO ity of unit/mL 20:21: NS, [place] injection 14 Starting Medica l 2,000 Units on Tue05/10/22 at 1421, Until Discontinu ed, Routine
For Priming of Ports:&nbs p; &n bsp; After initial saline flush, prime each port with heparin according to the priming volume listed on each catheter port for catheter lock.
heparin 2022- No 2000U PRN - SEE Uni vers 1,000 05-10 INSTRUCTIO ity of unit/mL 20:21: 23:58 NS, [place] injection 14 :50 Starting Medica l 2,000 Units on Tue Branch 05/10/22 at 1421, Until Tue05/18/22 at 1758, Routine
For Priming of Ports:&nbs p; &n bsp; After initial saline flush, prime each port with heparin according to the priming volume listed on each catheter port for catheter lock.
NaCl 0.9% Yes [id number] 250mL at 20 U nivers (NS) IV 1-16 mL/hr, IV ity of infusion 15:30: Infusion[place] 250 [place] 00 CONTINUOUS Medical , Starting Branch on Tue05/10/22 at 0930, Until Discontinu ed, Routine&lt ;br>To keep vein open
NaCl 0.9% 2022- No [id number] 250mL at 20 Univers (NS) IV 05-10-24 mL/hr, IV ity of infusion 15:30: 23:58 Infusion, [place] 250 mL 00 :50 CONTINUOUS Medical , Starting Branch on Tue05/10/22 at 0930, Until Tue05/18/22 at 1758, Routine
To keep vein open
perflutren 2022- No [id number] 2mL 2 mL, IV Univers lipid 05-10 Push, ity of microsphere 15:15: 15:15 ONCE, 1 [place] 00 :[place] dose, On Medical (DEFINITY) [facility] Branch injection 2 05/10/22 at mL 0915, Routine metoprolol 2022- No [id number] 5mg 5 mg, Slow Univers (LOPRESSOR) 05-10 IV Push, ity of injection 5 15:15: 16:23 ONCE, 1 [place] mg 00 :00 dose, On Medical [facility] Branch 05/10/22 at 0915, Routine furosemide 2022-0 Yes 80mg 80 mg, Unive rs (LASIX) -16 Oral, ity of tablet 80 15:00: QAM+PM, [place] mg 00 First dose Medical on [facility] Branch 05/10/22 at 0900, Until Discontinu ed, Routine furosemide 2022-0 Yes 80mg 80 mg, Unive rs (LASIX) -16 Oral, ity of tablet 80 15:00: QAM+PM, [place] mg 00 First dose Medical on [facility] Branch 05/10/22 at 0900, Until Discontinu ed, Routine metoprolol 0 No 50mg 50 mg, Univ ers succinate -16 05-17 Oral, ity of XL (TOPROL 15:00: 18:05 DAILY, [place] XL) tablet 00 :07 First dose Med ical 50 mg (after Branch last modificati on) on Tue05/10/22 at 0900, Until Discontinu ed, Routine DOBUTamine Yes [id number] 5ug/kg/ 5 Univers (DOBUTREX) 1-16 min mcg/kg/min ity of 50 mg/50 mL 14:18: ?94 kg [place] IV infusion 26 (28.2 Medical mL/hr), IV Branch Infusion, TITRATE, MAP Goal > or = 65 mmHg, Titrate per admin instructio ns, Starting on Tue05/10/22 at 0818
No te and document the precise time that this is 3. ac complished . Begin the count with the EKG system's DSE applicatio n program. This is time zero.&nbsp ; At 2 minutes and 30 seconds after beginning the initial dosing, acquire parasterna l long axis and parasterna l short axis view at papillary level, apical 4 chamber, 2 chamber and apical long axis view, and BP At the 3 minute interval, simultaneo usly obtain a 12 lead EKG, heart rate and 02 saturation and increase the Dobutamine infusion to 10 mcg/kg/min . At the 5 minutes and 30 second interval, acquire parasterna l long axis and parasterna l short&nbsp ;axis view at papillary level, apical 4 chamber, 2 chamber and apical long axis view and measure BP. At the 6 minute interval, simultaneo usly obtain a 12 lead EKG, heart rate and 02saturati on an d increase the Dobutamine infusion to 20 mcg/kg/min . At the 8 minutes and 30 second interval, acquire parasterna l long axis and parasterna l short&nbsp ;axis view at papillary level, apical 4 chamber, 2 chamber and apical long axis view and measure BP. At the 9 minute interval, simultaneo usly obtain a 12 lead EKG, heart rate and 02 saturation and increase the Dobutamine infusion to 30 mcg/kg/min . (see Adjunctive Therapy)&n bsp; At the 11 minutes and 30 second interval, acquire parasterna l long axis and parasterna l short&nbsp ;axis view at papillary level, apical 4 chamber, 2 chamber and apical long axis view and m easure BP. At the 12 minute interval, simultaneo usly obtain a 12 lead EKG, heart rate and 02 saturation and increase the Dobutamine infusion to 40 mcg/kg/min . (see Adjunctive Therapy&nb sp; At the 14 minutes and 30 second interval, acquire parasterna l long axis and parasterna l short&nbsp ;axis view at papillary level, apical 4 chamber, 2 chamber and apical long axis view and m easure BP. At the 15 minute interval, simultaneo usly obtain a 12 lead EKG, heart rate and 02 saturation and terminate the Dobutamine infusion. (see Adjunctive Therapy)<b r> DOBUTamine 2022- No [id number] 5ug/kg/ 5 Univers (DOBUTREX) -16 01-24 min mcg/kg/min it y of 50 mg/50 mL 14:18: 23:58 ?94 kg [place] IV infusion 26 :50 (28.2 Medical mL/hr), IV Branch Infusion, TITRATE, MAP Goal > or = 65 mmHg, Titrate per admin instructio ns, Starting on Tue05/10/22 at 0818
No te and document the precise time that this is 3. ac complished . Begin the count with the EKG system's DSE applicatio n program. This is time zero.&nbsp ; At 2 minutes and 30 seconds after beginning the initial dosing, acquire parasterna l long axis and parasterna l short axis view at papillary level, apical 4 chamber, 2 chamber and apical long axis view, and BP At the 3 minute interval, simultaneo usly obtain a 12 lead EKG, heart rate and 02 saturation and increase the Dobutamine infusion to 10 mcg/kg/min . At the 5 minutes and 30 second interval, acquire parasterna l long axis and parasterna l short&nbsp ;axis view at papillary level, apical 4 chamber, 2 chamber and apical long axis view and measure BP. At the 6 minute interval, simultaneo usly obtain a 12 lead EKG, heart rate and 02saturati on an d increase the Dobutamine infusion to 20 mcg/kg/min . At the 8 minutes and 30 second interval, acquire parasterna l long axis and parasterna l short&nbsp ;axis view at papillary level, apical 4 chamber, 2 chamber and apical long axis view and measure BP. At the 9 minute interval, simultaneo usly obtain a 12 lead EKG, heart rate and 02 saturation and increase the Dobutamine infusion to 30 mcg/kg/min . (see Adjunctive Therapy)&n bsp; At the 11 minutes and 30 second interval, acquire parasterna l long axis and parasterna l short&nbsp ;axis view at papillary level, apical 4 chamber, 2 chamber and apical long axis view and m easure BP. At the 12 minute interval, simultaneo usly obtain a 12 lead EKG, heart rate and 02 saturation and increase the Dobutamine infusion to 40 mcg/kg/min . (see Adjunctive Therapy&nb sp; At the 14 minutes and 30 second interval, acquire parasterna l long axis and parasterna l short&nbsp ;axis view at papillary level, apical 4 chamber, 2 chamber and apical long axis view and m easure BP. At the 15 minute interval, simultaneo usly obtain a 12 lead EKG, heart rate and 02 saturation and terminate the Dobutamine infusion. (see Adjunctive Therapy)<b r> sennosides- 2022-0 Yes 1{tbl} 1 tablet, Univers docusate 1-16 Oral, BID, ity o f sodium 14:00: First dose [place] (SENOKOT-S) 00 (after Medica l 8.6-50 mg last Branch per tablet modificati 1 tablet on) on Tue05/10/22 at 0800, Until Discontinu ed, Routine sennosides- 3-0 Yes 1{tbl} 1 tablet, Univers docusate 1-16 Oral, BID, ity o f sodium 14:00: First dose [place] (SENOKOT-S) 00 (after Medica l 8.6-50 mg last Branch per tablet modificati 1 tablet on) on Tue05/10/22 at 0800, Until Discontinu ed, Routine sevelamer 2022-0 202- No 800mg 800 mg, Uni vers (RENVELA) 16 01-24 Oral, TID ity of tablet 800 14:00: 13:34 MEALS, [place] mg 00 :44 First dose Medical (after Branch last modificati on) on Tue05/10/22 at 0800, Until Discontinu ed, Routine hydrALAZINE 2022-0 Yes 50mg 50 mg, Univ ers (APRESOLINE 1-15 Oral, Q8H, it y of ) tablet 50 20:00: First dose [place] mg 00 (after Medical last Branch modificati on) on [place] 05/09/22 at 1400, Until Discontinu ed, Routine hydrALAZINE 2022-0 2022- No 50mg 50 mg, Uni vers (APRESOLINE 15 -25 Oral, Q8H, i ty of ) tablet 50 20:00: 14:00 First dose [place] mg 00 :37 (after Medical last Branch modificati on) on 05/09/22 at 1400, Until Discontinu ed, Routine isosorbide 2022-0 Yes 30mg 30 mg, Unive rs mononitrate 1-15 Oral, ity of (IMDUR) 24 19:15: DAILY, [place] hr tablet 00 First dose Medi jeremiah 30 mg on [place] Branch 05/09/22 at 1315, Until Discontinu ed, Routine isosorbide 2023-0 Yes 30mg 30 mg, Unive rs mononitrate 1-15 Oral, ity of (IMDUR) 24 19:15: DAILY, [place] hr tablet 00 First dose Medi jeremiah 30 mg on [place] Branch 05/09/22 at 1315, Until Discontinu ed, Routine metoprolol 2022-0 202- No 25mg 25 mg, Univ ers succinate -15 -15 Oral, ity of XL (TOPROL 15:00: 18:37 DAILY, [place] XL) tablet 00 :31 First dose Med ical 25 mg on [facility] 05/09/22 at 0900, Until Discontinu ed, Routine KCL 2022- No 40meq 40 mEq, Univers (KLOR-CON 05-09 Oral, ity of M20) tablet 14:00: 16:28 ONCE, 1 [place] 40 mEq 00 :00 dose, On [facility] 05/09/22 at 0800, Routine NaCl 0.9% 2022- No 5mL 5 mL, Slow U nivers (NS) 05-07 IV Push, ity of injection 5 23:30: 23:30 ONCE, 1 [place] mL 00 :00 dose, On [facility] 05/07/22 at 1730, Routine heparin 2022- No 2000U PRN - SEE Uni vers 1,000 05-07 INSTRUCTIO ity of unit/mL 23:28: 23:22 NS, [place] injection 18 :35 Starting Medica l 2,000 Units on [facility] 05/07/22 at 1728, Until [place] 05/09/22 at 1722, Routine
For Priming of Ports:&nbs p; &n bsp; After initial saline flush, prime each port with heparin according to the priming volume listed on each catheter port for catheter lock.
morpHINE (2 2022- No 2mg 2 mg, Slow Univers mg/mL) 05-07 IV Push, ity of injection 2 21:45: 21:02 ONCE, 1 [place] mg 00 :00 dose, On [facility] 05/07/22 at 1545, Routine NaCl 0.9% 2022- No 5mL 5 mL, Slow U nivers (NS) 05-07 IV Push, ity of injection 5 21:30: 21:30 ONCE, 1 [place] mL 00 :00 dose, On [facility] 05/07/22 at 1530, Routine mupirocin Yes Nasal, Univer s (BACTROBAN 05-07 Q12H, For ity of NASAL OINT) 21:27: 5 days, [place] 2 % nasal 20 First dose Medi jeremiah ointment conditiona Branc h l, Routine mupirocin Yes Nasal, Univer s (BACTROBAN 05-07 Q12H, For ity of NASAL OINT) 21:27: 5 days, [place] 2 % nasal 20 First dose Medi jeremiah ointment conditiona Branc h l, Routine heparin 2022- No 2000U PRN - SEE Uni vers 1,000 05-07 INSTRUCTIO ity of unit/mL 21:27: 23:22 NS, [place] injection 20 :35 Starting Medica l 2,000 Units on Fri Branch 05/07/22 at 1527, Until 05/09/22 at 1722, Routine
For Priming of Ports:&nbs p; &n bsp; After initial saline flush, prime each port with heparin according to the priming volume listed on each catheter port for catheter lock.
lidocaine 2022- No 2mL 2 mL, Univer s 1% 05-07 Infiltrati ity of (XYLOCAINE) 18:00: 18:00 on, ONCE, [place] 10 mg/mL (1 00 :00 1 dose, On Me dical %) Fri Branch injection 2 05/07/22 at mL 1200, Routine NaCl 0.9% 2022- No 5mL 5 mL, Slow U nivers (NS) 05-07 IV Push, ity of injection 5 18:00: 18:00 ONCE, 1 [place] mL 00 :00 dose, On Medical Fri Branch 05/07/22 at 1200, Routine amLODIPine 2022- No 10mg 10 mg, Univ ers (NORVASC) 05-06 Oral, ity of tablet 10 15:00: 19:26 DAILY, [place] mg 00 :01 First dose Medical (after Branch last modificati on) on [place] 05/06/22 at 0900, Until Discontinu ed, Routine sennosides- 2022- No 2{tbl} 2 tablet, Univers docusate 05-06 Oral, BID, ity of sodium 14:00: 13:12 First dose [place] (SENOKOT-S) 00 :54 (after Medica l 8.6-50 mg last Branch per tablet modificati 2 tablet on) on Tue05/06/22 at 0800, Until Discontinu ed, Routine acetaminoph 2022- No 650mg 650 mg, U nivers en 05-05 Oral, ity of (TYLENOL) 23:43: 14:44 Q6HPRN, [place] tablet 650 15 :52 Starting Medic al mg on Tue05/05/22 at 1743, Until Tue05/11/22 at 0844, Routine, Pain (scale 4-6), Pain (scale 1-3), headaches sennosides- 2022- No 1{tbl} 1 tablet, Univers docusate 05-05 Oral, BID, ity of sodium 02:00: 03:34 First dose [place] (SENOKOT-S) 00 :28 (after Medica l 8.6-50 mg last Branch per tablet modificati 1 tablet on) on Tue05/04/22 at 2000, Until Discontinu ed, Routine metOLazone 2022- No 5mg 5 mg, Unive rs (ZAROXOLYN) 05-04 Oral, ity of tablet 5 mg 18:15: 20:34 DAILY, [place] 00 :26 First dose Medical on Tue05/04/22 at 1215, Until Discontinu ed, Routine sevelamer 2022- No 1600mg 1,600 mg, Univers (RENVELA) 05-04 Oral, TID ity of tablet 14:00: 13:13 MEALS, [place] 1,600 mg 00 :25 First dose Medic al (after Branch last modificati on) on Tue05/04/22 at 0800, Until Discontinu ed, Routine amLODIPine 2022- No 5mg 5 mg, Unive rs (NORVASC) 05-04 Oral, ity of tablet 5 mg 01:00: 03:32 DAILY, [place] 00 :21 First dose Medical on Tue05/03/22 at 1900, Until Discontinu ed, Routine hydrALAZINE 2023-0 2023- No 25mg 25 mg, Uni vers (APRESOLINE 05-03 Oral, Q8H, i ty of ) tablet 25 20:00: 18:37 First dose [place] mg 00 :31 on [facility] 05/03/22 at Branch 1400, Until Discontinu ed, Routine perflutren 2022- No [id number] 3mL 3 mL, IV Univers protein-A 05-03 Push, ity of microsphr 18:30: 17:53 ONCE, 1 [place] (OPTISON) 00 :00 dose, On Medica l injection 3 [facility] 05/03/22 Br anch mL at 1230, Routine sevelamer 2022- No 800mg 800 mg, Uni vers (RENVELA) 05-03 Oral, TID ity of tablet 800 14:00: 00:50 MEALS, [place] mg 00 :30 First dose Medical on [facility] 05/03/22 at 0800, Until Discontinu ed, Routine sodium 2022- No 1{spray 1 [place], Uni vers chloride 05-03 } Nasal, ity of (OCEAN MIST 05:00: 04:36 ONCE NOW, [place] NASAL) 0.65 00 :00 1 dose, On Me dical % nasal [place] 05/02/22 Branch spray 1 at 2300, [place] Routine furosemide 2022- No 120mg 120 mg, Un aleksandar (LASIX) 05-0216 Slow IV ity of injection 22:00: 13:08 Push, TID, [place] 120 mg 00 :07 First dose Medical on [facility] 05/02/22 at 1600, Until Discontinu ed, Routine trimethoben 2022-0 Yes 100mg 100 mg, Un aleksandar zamide 1-08 Intramuscu ity of (TIGAN) 16:00: lar, [place] injection 30 Q6HPRN, Medical 100 mg Starting Branch on [place] 05/02/22 at 1000, Until Discontinu ed, Routine, Nausea and Vomiting (N/V) trimethoben 2022-0 Yes 100mg 100 mg, Un aleksandar zamide 1-08 Intramuscu ity of (TIGAN) 16:00: lar, [place] injection 30 Q6HPRN, Medical 100 mg Starting Branch on [place] 05/02/22 at 1000, Until Discontinu ed, Routine, Nausea and Vomiting (N/V) pantoprazol 2022-0 Yes 40mg 40 mg, Univ ers e 1-08 Oral, ity of (PROTONIX) 15:00: DAILY, [place] EC tablet 00 First dose Medi jeremiah 40 mg (after Branch last modificati on) on 05/02/22 at 0900, Until Discontinu ed, Routine aspirin 2022-0 Yes 81mg 81 mg, Univers chewable 08 Oral, ity of tablet 81 15:00: DAILY, [place] mg 00 First dose Medical on [place] Branch 05/02/22 at 0900, Until Discontinu ed, Routine pantoprazol 0 Yes 40mg 40 mg, Univ ers e -08 Oral, ity of (PROTONIX) 15:00: DAILY, [place] EC tablet 00 First dose Medi jeremiah 40 mg (after Branch last modificati on) on [place] 05/02/22 at 0900, Until Discontinu ed, Routine aspirin 2022-0 Yes 81mg 81 mg, Univers chewable 08 Oral, ity of tablet 81 15:00: DAILY, [place] mg 00 First dose Medical on [place] Branch 05/02/22 at 0900, Until Discontinu ed, Routine polyethylen 2022-0 Yes 17g 17 g, Unive rs e glycol -08 Oral, ity of 3350 powder 03:30: DAILY, [place] 17 g 00 First dose Medical on [facility] Branch 05/01/22 at 2130, Until Discontinu ed, Routine polyethylen 2022-0 Yes 17g 17 g, Unive rs e glycol -08 Oral, ity of 3350 powder 03:30: DAILY, [place] 17 g 00 First dose Medical on [facility] Branch 05/01/22 at 2130, Until Discontinu ed, Routine sennosides- 2022-0 202- No 1{tbl} 1 tablet, Univers docusate 05-02 01-10 Oral, ity of sodium 03:30: 18:08 DAILY, [place] (SENOKOT-S) 00 :22 First dose Me dical 8.6-50 mg on [facility] Branch per tablet 05/01/22 at 1 tablet 2130, Until Discontinu ed, Routine furosemide 2022-0 2022- No 80mg 80 mg, IV U nivers (LASIX) 05-02 Push, ity of injection 03:15: 03:08 ONCE, 1 [place] 80 mg 00 :00 dose, On Medical 05/01/22 Branch at 2114, CARLITOS nitroglycer 2022-0 Yes .4mg 0.4 mg, Uni vers in 05-02 Sublingual ity of (NITROSTAT) 03:10: , Q5MIN [place] sublingual 09 PRN, Medical tablet 0.4 Starting Branc h mg on 05/01/22 at 2109, Until Discontinu ed, Routine, Chest pain nitroglycer 2022-0 Yes .4mg 0.4 mg, Uni vers in 05-02 Sublingual ity of (NITROSTAT) 03:10: , Q5MIN [place] sublingual 09 PRN, Medical tablet 0.4 Starting Branc h mg on 05/01/22 at 2109, Until Discontinu ed, Routine, Chest pain Sliding 2022-0 Yes Subcutaneo Univ ers Scale 1-08 us, TID ity of Insulin - 03:00: MEALS+HS, [place] Lispro 00 First dose Medical (HumaLOG) + on Sat Branch [facility] 05/01/22 at Testing 2100, Until Discontinu ed, Routine Sliding 2022-0 Yes Subcutaneo Univ ers Scale 1-08 us, TID ity of Insulin - 03:00: MEALS+HS, [place] Lispro 00 First dose Medical (HumaLOG) + on Sat Branch [facility] 05/01/22 at Testing 2100, Until Discontinu ed, Routine heparin 2022-0 Yes 5000U 5,000 Univers (porcine) 1-08 Units, ity of injection 02:00: Subcut[place]o [place] 5,000 Units 00 us, Q12H, Med ical First dose Branch on 05/01/22 at 2000, Until Discontinu ed, Routine heparin 2022-0 Yes 5000U 5,000 Univers (porcine) 1-08 Units, ity of injection 02:00: Subcutaneo [place] 5,000 Units 00 us, Q12H, Med ical First dose Branch on 05/01/22 at 2000, Until Discontinu ed, Routine dextrose 2022-0 Yes 250mL 250 mL, IV Un aleksandar 10% (D10W) 108 Infusion, ity of bolus 01:04: PRN - SEE [place] infusion 27 INSTRUCTIO Medic al 250 mL NS, Branch Administer over 60 Minutes, Other, If blood glucose is < or = 70 mg/dL and patient is unable to swallow or has mental status changes, Starting on 05/01/22 at 1904
If blood glucose is < or = 70 mg/dL and patient is unable to swallow or has mental status changes (Give glucagon order if patient needs fluid restrictio n): IF IV access available: Dextrose 10%. 1. 125 mL (? bag) of D10W IV infusion - equivalent to 12.5 g dextrose 2. Blood glucose - draw blood glucose 15 minutes after D10W Administra tion. 3. If blood glucose is < 80 mg/dL, repeat.
dextrose 2022-0 Yes 250mL 250 mL, IV Un aleksandar 10% (D10W) 1-08 Infusion, ity of bolus 01:04: PRN - SEE [place] infusion 27 INSTRUCTIO Medic al 250 mL NS, Branch Administer over 60 Minutes, Other, If blood glucose is < or = 70 mg/dL and patient is unable to swallow or has mental status changes, Starting on 05/01/22 at 1904
If blood glucose is < or = 70 mg/dL and patient is unable to swallow or has mental status changes (Give glucagon order if patient needs fluid restrictio n): IF IV access available: Dextrose 10%. 1. 125 mL (? bag) of D10W IV infusion - equivalent to 12.5 g dextrose 2. Blood glucose - draw blood glucose 15 minutes after D10W Administra tion. 3. If blood glucose is < 80 mg/dL, repeat.
glucagon 2022-0 Yes 1mg 1 mg, Univers (GLUCAGEN -08 Intramuscu ity of DIAGNOSTIC 01:04: lar, PRN, [place] KIT) 21 Starting Medical injection 1 on Sat Branch 05/01/22 at 1904, Until Discontinu ed, CARLITOS, Blood Glucose < or = 70 mg/dL and patient is unable to swallow or has mental changes. glucagon 2023-0 Yes 1mg 1 mg, Univers (GLUCAGEN 05-02 Intramuscu ity of DIAGNOSTIC 01:04: lar, PRN, [place] KIT) 21 Starting Medical injection 1 on Sat Branch mg 05/01/22 at 1904, Until Discontinu ed, CARLTIOS, Blood Glucose < or = 70 mg/dL and patient is unable to swallow or has mental changes. acetaminoph 2022- No 650mg 650 mg, U nivers en 05-02 Oral, ity of (TYLENOL) 00:59: 23:43 Q6HPRN, [place] tablet 650 30 :38 Starting Medic al mg on Sat Branch 05/01/22 at 1859, Until 05/05/22 at 1743, Routine, Pain (scale 1-3) furosemide 2022- No 80mg 80 mg, IV U nivers (LASIX) 05-01 Push, ity of injection 20:30: 20:22 ONCE, 1 [place] 80 mg 00 :00 dose, On Medical 05/01/22 Branch at 1430, CARLITOS furosemide 2022- No 80mg 80 mg, IV U nivers (LASIX) 05-01 Push, ity of injection 18:15: 18:45 ONCE, 1 [place] 80 mg 00 :00 dose, On Medical 05/01/22 Branch at 1215, CARLITOS aspirin 81 Yes [id number] 81mg Take 1 Univers mg chewable 1-11 9103 tablet by ity of tablet 00:00: mouth [place] 00 daily. [facility] aspirin 81 Yes [id number] 81mg Take 1 Univers mg chewable 1-11 9103 tablet by ity of tablet 00:00: mouth [place] 00 daily. [facility] aspirin 81 2021-0 Yes [id number] 81mg Take 1 Univers mg chewable 1-11 9103 tablet by ity of tablet 00:00: mouth [place] 00 daily. [facility] aspirin 81 2021- Yes [id number] 81mg Take 1 Univers mg chewable 1-11 9103 tablet by ity of tablet 00:00: mouth [place] 00 daily. [facility] aspirin 81 Yes [id number] 81mg Take 1 Univers mg chewable 1-11 9103 tablet by ity of tablet 00:00: mouth [place] 00 daily. Medical Branch aspirin 81 0 Yes [id number] 81mg Take 1 Univers mg chewable 05-05 9103 tablet by ity of tablet 00:00: mouth [place] 00 daily. Medical Branch aspirin 81 0 Yes [id number] 81mg Take 1 Univers mg chewable 05-05 9103 tablet by ity of tablet 00:00: mouth [place] 00 daily. [facility] Branch aspirin 81 0 Yes [id number] 81mg Take 1 Univers mg chewable 05-05 9103 tablet by ity of tablet 00:00: mouth [place] 00 daily. [facility] Branch aspirin 81 0 2022- No [id number] 81mg Take 1 Univers mg chewable 05-05 9103 tablet by it y of tablet 00:00: 00:00 mouth [place] 00 :00 daily. Medical Branch calcitrioL Yes .25ug 0.25 mcg, U nivers (ROCALTROL) -10 Oral, Q ity o f capsule 15:00: DAY, [place] 0.25 mcg 00 First dose Medic al on Tue Branch 05/04/21 at 0900, Until Discontinu ed, Routine furosemide 2021- No 40mg Take 40 mg Univers (LASIX) 40 05-0410 by mouth ity of mg tablet 10:52: [...] No 100mg Take 100 U nivers succinate 05-04 mg by ity of XL 100 mg 10:52: 00:00 mouth [place] 24 hr 58 :00 daily. Medical tablet Branch telmisartan 2021- No 40mg Take 40 mg Univers 40 mg 05-04 by mouth ity of tablet 10:52: 00:00 every 12 [place] 58 :00 (twelve) Medical hours. Branch amLODIPine No 5mg Take 5 mg U nivers 5 mg tablet 05-04 by mouth ity of 10:52: 00:00 daily. [place] 58 :00 Medical Branch insulin 2021- No 18U inject 18 Univ ers glargine,hu 05-04 Units ity of m.rec.anlog 10:52: 00:00 under the [place] (INSULIN 58 :00 skin at Medical GLARGINE bedtime. Branch SC) linaGLIPtin No 5mg Take 5 mg Univers (TRADJENTA) 05-04 by mouth ity of 5 mg tablet 10:52: 00:00 [place] :00 before Medical breakfast. Branch furosemide No 20mg Take 20 mg Univers 20 mg 05-04 by mouth ity of tablet 10:52: 00:00 with [place] 58 :00 lunch. Medical Branch diphenidol 2021- No 25mg 25 mg as Un aleksandar HCl 05-04 needed for ity of (DIPHENIDOL 10:52: 00:00 Nausea and [place] , BULK, 58 :00 Vomiting Medical MISC) (N/V). Branch Take one tablet one hour before meals or en case of vomiting docusate Yes 100mg 100 mg, Unive rs (COLACE) 1-10 Oral, BID, ity o f capsule 100 02:00: First dose [place] mg 00 on [facility] 05/03/21 at Branch 1999, Until Discontinu ed, Routine polyethylen Yes 17g 17 g, Unive rs e glycol 1-10 Oral, ity of 3350 powder 01:53: QDAILYPRN, [place] 17 g 28 Starting Medical on [facility] 05/03/21 at 1953, Until Discontinu ed, Routine, Constipati on bisacodyL Yes 5mg 5 mg, Univers (DULCOLAX) 1-10 Oral, ity of tablet 5 mg 01:53: RAMIRO, [place] 05 Starting Medical on Sun Branch 05/03/21 at 1953, Until Discontinu ed, Routine, Constipati on amLODIPine Yes [id number] 5mg Take 1 Univers 5 mg tablet -10 9103 tablet by ity of 00:00: mouth [place] 00 daily. Medical Branch pantoprazol Yes [id number] 20mg Take 1 Univers e 20 mg EC 1-10 9103 tablet by ity of tablet 00:00: mouth [place] 00 daily. Medical Branch insulin Yes [id number] 25U inject 25 Univers glargine 1-10 9103 Units ity of 100 unit/mL 00:00: under the [place] injection 00 skin at Medical bedtime. Branch metoprolol Yes [id number] 100mg Take 1 Univers succinate 1-10 9103 tablet by ity o f XL 100 mg 00:00: mouth [place] 24 hr 00 daily. Medical tablet Branch furosemide Yes [id number] 120mg Take 3 Univers 40 mg 1-10 9103 tablets by ity of tablet 00:00: mouth [place] 00 every Medical morning Branch and evening. 120 mg twice a day amLODIPine Yes [id number] 5mg Take 1 Univers 5 mg tablet 1-10 9103 tablet by ity of 00:00: mouth [place] 00 daily. Medical Branch pantoprazol Yes [id number] 20mg Take 1 Univers e 20 mg EC 1-10 9103 tablet by ity of tablet 00:00: mouth [place] 00 daily. Medical Branch insulin Yes [id number] 25U inject 25 Univers glargine 1-10 9103 Units ity of 100 unit/mL 00:00: under the [place] injection 00 skin at Medical bedtime. Branch metoprolol Yes [id number] 100mg Take 1 Univers succinate 1-10 9103 tablet by ity o f XL 100 mg 00:00: mouth [place] 24 hr 00 daily. Medical tablet Branch furosemide Yes [id number] 120mg Take 3 Univers 40 mg 1-10 9103 tablets by ity of tablet 00:00: mouth [place] 00 every Medical morning Branch and evening. 120 mg twice a day amLODIPine 2021-0 Yes [id number] 5mg Take 1 Univers 5 mg tablet 1-10 9103 tablet by ity of 00:00: mouth [place] 00 daily. Medical Branch pantoprazol 2021-0 Yes [id number] 20mg Take 1 Univers e 20 mg EC 1- 9103 tablet by ity of tablet 00:00: mouth [place] 00 daily. Medical Branch insulin 2021-0 Yes [id number] 25U inject 25 Univers glargine 1-10 9103 Units ity of 100 unit/mL 00:00: under the [place] injection 00 skin at Medical bedtime. Branch metoprolol 2021-0 Yes [id number] 100mg Take 1 Univers succinate 1-10 9103 tablet by ity o f XL 100 mg 00:00: mouth [place] 24 hr 00 daily. Medical tablet Branch furosemide 2021-0 Yes [id number] 120mg Take 3 Univers 40 mg 1-10 9103 tablets by ity of tablet 00:00: mouth [place] 00 every Medical morning Branch and evening. 120 mg twice a day amLODIPine 2021-0 Yes [id number] 5mg Take 1 Univers 5 mg tablet 1 9103 tablet by ity of 00:00: mouth [place] 00 daily. Medical Branch pantoprazol 2021-0 Yes [id number] 20mg Take 1 Univers e 20 mg EC 1 9103 tablet by ity of tablet 00:00: mouth [place] 00 daily. Medical Branch insulin 2021-0 Yes [id number] 25U inject 25 Univers glargine 110 9103 Units ity of 100 unit/mL 00:00: under the [place] injection 00 skin at Medical bedtime. Branch metoprolol 2021-0 Yes [id number] 100mg Take 1 Univers succinate 1-10 9103 tablet by ity o f XL 100 mg 00:00: mouth [place] 24 hr 00 daily. Medical tablet Branch furosemide 2021-0 Yes [id number] 120mg Take 3 Univers 40 mg 1-10 9103 tablets by ity of tablet 00:00: mouth [place] 00 every Medical morning Branch and evening. 120 mg twice a day amLODIPine 2021-0 Yes [id number] 5mg Take 1 Univers 5 mg tablet 1-10 9103 tablet by ity of 00:00: mouth [place] 00 daily. Medical Branch pantoprazol Yes [id number] 20mg Take 1 Univers e 20 mg EC 1-10 9103 tablet by ity of tablet 00:00: mouth [place] 00 daily. Medical Branch insulin 2021-0 Yes [id number] 25U inject 25 Univers glargine 1-10 9103 Units ity of 100 unit/mL 00:00: under the [place] injection 00 skin at Medical bedtime. Branch metoprolol 2021- Yes [id number] 100mg Take 1 Univers succinate 1-10 9103 tablet by ity o f XL 100 mg 00:00: mouth [place] 24 hr 00 daily. Medical tablet Branch furosemide 2021- Yes [id number] 120mg Take 3 Univers 40 mg 1-10 9103 tablets by ity of tablet 00:00: mouth [place] 00 every Medical morning Branch and evening. 120 mg twice a day amLODIPine 2021-0 Yes [id number] 5mg Take 1 Univers 5 mg tablet 110 9103 tablet by ity of 00:00: mouth [place] 00 daily. Medical Branch pantoprazol Yes [id number] 20mg Take 1 Univers e 20 mg EC 1-10 9103 tablet by ity of tablet 00:00: mouth [place] 00 daily. Medical Branch insulin Yes [id number] 25U inject 25 Univers glargine 1-10 9103 Units ity of 100 unit/mL 00:00: under the [place] injection 00 skin at Medical bedtime. Branch metoprolol 2021-0 Yes [id number] 100mg Take 1 Univers succinate 1-10 9103 tablet by ity o f XL 100 mg 00:00: mouth [place] 24 hr 00 daily. Medical tablet Branch furosemide 2021-0 Yes [id number] 120mg Take 3 Univers 40 mg 1-10 9103 tablets by ity of tablet 00:00: mouth [place] 00 every Medical morning Branch and evening. 120 mg twice a day amLODIPine 2021-0 Yes [id number] 5mg Take 1 Univers 5 mg tablet 1-10 9103 tablet by ity of 00:00: mouth [place] 00 daily. Medical Branch pantoprazol 2021-0 Yes [id number] 20mg Take 1 Univers e 20 mg EC 1-10 9103 tablet by ity of tablet 00:00: mouth [place] 00 daily. Medical Branch insulin Yes [id number] 25U inject 25 Univers glargine 1 9103 Units ity of 100 unit/mL 00:00: under the [place] injection 00 skin at Medical bedtime. Branch metoprolol Yes [id number] 100mg Take 1 Univers succinate 1-10 9103 tablet by ity o f XL 100 mg 00:00: mouth [place] 24 hr 00 daily. Medical tablet Branch furosemide Yes [id number] 120mg Take 3 Univers 40 mg 05-04 9103 tablets by ity of tablet 00:00: mouth [place] 00 every Medical morning Branch and evening. 120 mg twice a day amLODIPine Yes [id number] 5mg Take 1 Univers 5 mg tablet 05-04 9103 tablet by ity of 00:00: mouth [place] 00 daily. Medical Branch pantoprazol Yes [id number] 20mg Take 1 Univers e 20 mg EC 05-04 9103 tablet by ity of tablet 00:00: mouth [place] 00 daily. Medical Branch insulin Yes [id number] 25U inject 25 Univers glargine 05-04 9103 Units ity of 100 unit/mL 00:00: under the [place] injection 00 skin at Medical bedtime. Branch metoprolol Yes [id number] 100mg Take 1 Univers succinate 05-04 9103 tablet by ity o f XL 100 mg 00:00: mouth [place] 24 hr 00 daily. Medical tablet Branch furosemide Yes [id number] 120mg Take 3 Univers 40 mg 05-04 9103 tablets by ity of tablet 00:00: mouth [place] 00 every Medical morning Branch and evening. 120 mg twice a day amLODIPine 2022- No [id number] 5mg Take 1 Univers 5 mg tablet 05-04 9103 tablet by it y of 00:00: 00:00 mouth [place] 00 :00 daily. Medical Branch pantoprazol 2022- No [id number] 20mg Take 1 Univers e 20 mg EC 05-04 9103 tablet by ity of tablet 00:00: 00:00 mouth [place] 00 :00 daily. Medical Branch insulin 2022- No [id number] 25U inject 25 Univers glargine 1-10 01-25 9103 Units ity of 100 unit/mL 00:00: 00:00 under the [place] injection 00 :00 skin at Medical bedtime. Branch metoprolol 2022- No [id number] 100mg Take 1 Univers succinate 05-04 9103 tablet by ity of XL 100 mg 00:00: 00:00 mouth [place] 24 hr 00 :00 daily. Medical tablet Branch furosemide 2022- No [id number] 120mg Take 3 Univers 40 mg 05-04 9103 tablets by ity of tablet 00:00: 00:00 mouth [place] 00 :00 every Medical morning Branch and evening. 120 mg twice a day furosemide Yes 120mg 120 mg, Uni vers (LASIX) 05-03 Oral, ity of tablet 120 23:00: QAM+PM, [place] mg 00 First dose Medical on Sun Branch 05/03/21 at 1700, Until Discontinu ed, Routine iron 2021- No 300mg 300 mg, IV Unive rs sucrose 05-03 Infusion, ity of (VENOFER) 20:15: 23:04 ONCE, [place] 300 mg in 00 :00 Administer Medi jeremiah NaCl 0.9% over 2.5 Branch (NS) 250 mL Hours, On infusion 05/03/21 at 1415, For 1 dose insulin Yes 25U 25 Units, Unive rs glargine 05-03 Subcutaneo ity o f (LANTUS 03:00: , [facility], [place] U-100) 00 First dose Medical injection [...] 00 on Sat Medical BICARBONATE 05/02/21 at [facility] )) tablet 1200, 650 mg Until [...] 05/10/21 at 0900, Routine sodium 2021- No [id number] 150meq IV [facility] ers bicarbonate 05-02 Infusion, it y of 150 mEq in 10:15: 10:15 at 125 [place] D5W 1,000 00 :00 mL/hr, 150 Medi jeremiah mL IV mEq, ONCE, Branch infusion 1 dose, On 05/02/21 at 0415, STAT furosemide 2021- No [id number] 80mg 80 mg, Univers (LASIX) 05-01 Slow IV ity of injection 16:45: 16:21 Push, [place] 80 mg 00 :05 Q12H, Medical First dose Branch on Tue05/01/21 at 1045, Until Discontinu ed, Routine aspirin 0 Yes 81mg 81 mg, Univers chewable 05-01 Oral, ity of tablet 81 15:00: DAILY, [place] mg 00 First dose Medical on Fri Branch 05/01/21 at 0900, Until Discontinu ed, Routine pantoprazol 0 Yes 40mg 40 mg, [facility] ers e 05-01 Oral, ity of (PROTONIX) 15:00: DAILY, [place] EC tablet 00 First dose Medi jeremiah 40 mg on Tue Branch 05/01/21 at 0900, Until Discontinu ed metoprolol 0 Yes 100mg 100 mg, Uni vers succinate 05-01 Oral, ity of XL (TOPROL 15:00: DAILY, [place] XL) tablet 00 First dose Med ical [...] Routine insulin 2021- No 18U 18 Units, [facility] ers glargine 05-01 Subcutaneo ity of (LANTUS 03:00: 00:39 us, QHS, [place] U-100) 00 :26 First dose Medical injection on Tue Branch 18 Units 04/30/21 at 2100, Until Discontinu ed Sliding Subcutaneo Uni vers Scale 04-30 us, TID ity of Insulin - 23:00: 00:39 MEALS+HS, [place] Lispro 00 :26 First dose Medical (HumaLOG) + on Tue Branch Fsbg 04/30/21 at Testing 1700, Until Discontinu ed, Routine sulfur 2021- No [id number] 5mL 5 mL, [facility] hexafluorid 04-30 Intravenou i ty of e microsphr 21:00: 21:00 s, ONCE, 1 [place] (LUMASON) 00 :00 dose, On Medica l injection 5 Tue04/30/21 Br anch mL at 1500, Routine
city council member approving Restricted medication : CHAPIS GUPTA heparin Yes 5000U 5,000 Univers (porcine) 04-30 Units, ity of injection 20:00: Subcutaneo [place] 5,000 Units 00 us, Q8H, Medi jeremiah First dose Branch on Tue04/30/21 at 1400, Until Discontinu ed, Routine codeine-gua Yes 10mL 10 mL, [facility] ers ifenesin 04-30 Oral, ity of (ROBITUSSIN 19:40: Q6HPRN, [place] as AC) 10-100 55 Starting Medic al mg/5 mL on [facility] Branch oral 04/30/21 at solution 10 1340, mL Until Discontinu ed, Routine, Cough albuterol Yes 2{puff} 2 Puff, Un aleksandar (VENTOLIN) 04-30 Inhalation ity of inhaler 2 19:40: , Q6HPRN, [place] Puff 48 Starting Medical on [facility] Branch 04/30/21 at 1340, Until Discontinu ed, Routine, Wheezing, Shortness of Breath, Bronchospa sm, Chest tightness acetaminoph Yes 650mg 650 mg, Un aleksandar en 04-30 Oral, ity of (TYLENOL) 19:39: Q6HPRN, [place] tablet 650 47 Starting Medic al mg on [facility] Branch 04/30/21 at 1339, Until Discontinu ed, Routine, Pain (scale 1-3) dexamethaso 2021- No 10mg 10 mg, IV Univers ne 04-30 Push, ity of (DECADRON 13:45: 13:45 ONCE, 1 [place] PHOSPHATE) 00 :00 dose, On Medic al injection [facility] 04/30/21 Bran ch 10 mg at 0745, STAT acetaminoph 2021- No 1000mg 1,000 mg, Univers en 04-30 Oral, ity of (TYLENOL) 12:45: 11:48 ONCE, 1 [place] tablet 00 :00 dose, On Medical 1,000 mg [facility] 04/30/21 Branc h at 0645, CARLITOS Vital Signs Vital Name Observation Time Observation Value Comments Source Systolic blood 2022-05-27 01:52:00 156 [facility]Hg[facility] 2022-05-27 01:52:00 66 mm[Hg] [facility] Heart rate 2022-05-27 01:52:00 65 /min [facility] Body temperature 2022-05-27 01:52:00 36.44 Venita [facility] Respiratory rate 2022-05-27 01:52:00 18 /min Univ ers[facility] [place] [facility] Oxygen saturation in 2022-05-27 01:52:00 97 /min University of Arterial blood by [place] Medi jeremiah Pulse oximetry Branch Body weight 2022-05-27 01:23:00 70.1 kg [facility] [place] [facility] BMI 2022-05-27 01:23:00 26.53 kg/m2 [facility] [place] [facility] Body height 2022-05-14 19:48:00 162.6 cm [facility] [place] [facility] Systolic blood 2022-05-17 22:45:00 132 mm[Hg] Univer sity of pressure [place] [facility] Diastolic blood 2022-05-17 22:45:00 59 mm[Hg] Unive rsity of pressure [place] [facility] Respiratory rate 2022-05-17 22:45:00 22 /min Univ [facility] [place] [facility] Oxygen saturation in 2022-05-17 22:45:00 96 /min University of Arterial blood by [place] [employer] jeremiah Pulse oximetry Branch Heart rate 2022-05-17 18:15:00 80 /min [facility] [place] [facility] Body temperature 2022-05-17 18:15:00 36.22 Venita Univ [facility] [place] [facility] Body weight 2022-05-17 17:54:00 64.225 kg [facility] [place] [facility] BMI 2022-05-17 17:54:00 24.30 kg/m2 [facility] [place] [facility] Body height 2022-05-14 19:48:00 162.6 cm [facility] [place] [facility] Systolic blood 2021-05-04 17:15:00 156 mm[Hg] Univer sity of pressure [place] [facility] Diastolic blood 2021-05-04 17:15:00 60 mm[Hg] Unive rsity of pressure [place] [facility] Heart rate 2021-05-04 17:15:00 93 /min [facility] [place] [facility] Body temperature 2021-05-04 17:15:00 37 Venita Univ [facility] [place] [facility] Respiratory rate 2021-05-04 17:15:00 18 /min Univ [facility] [place] [facility] Oxygen saturation in 2021-05-04 17:15:00 96 /min University of Arterial blood by [place] [employer] jeremiah Pulse oximetry Branch Body weight 2021-05-01 09:42:00 84.959 kg [facility] [place] [facility] BMI 2021-05-01 09:42:00 34[facility]26 [facility] 2021-04-30 15:05:00 157.5 cm [facility] Systolic blood 2022-05-16 17:40:00 123 mm[Hg] Univer sity of pressure [facility] Diastolic blood 2022-05-16 17:40:00 55 mm[Hg] Unive rsity of [facility] Heart rate 2022-05-16 17:40:00 69 /min [facility] Body temperature 2022-05-16 17:40:00 36.67 Venita [facility] Res[facility] rate 2022-05-16 17:40:00 18 /min [facility] Oxygen saturation in 2022-05-16 17:40:00 100 /min [facility] Arterial blood by [facility] [place] [facility] Pulse oximetry Branch Body height 2022-05-14 19:48:00 162.6 cm Universi [facility] Body weight 2022-05-14 19:48:00 66.225 kg [facility] BMI 2022-05-14 19:48:00 25.06 kg/m2 [facility] Procedures Procedure Date / Time Performing Clinician Source Performed REFERRAL- 2022-09-28 05:01:00 Doctor Unassigned, No [facility] REQUEST/RESPONSE [facility] CONSENT FOR 2022-06-10 15:38:31 Doctor Unassigned, No [facility] FREE TREATMENT FORM [facility] CONSENT/REFUSAL FOR 2022-06-08 14:57:49 Doctor Unassigned, No [facility] DIAGNOSIS AND TREATMENT Name [facility] POCT GLUCOSE (AUTOMATED) 2022-05-27 01:52:00 Alexander [facility] POCT GLUCOSE (AUTOMATED) 2022-05-26 22:40:00 Alexander [facility] POCT GLUCOSE (AUTOMATED) 2022-05-26 18:52:00 Alexander [facility] POCT GLUCOSE (AUTOMATED) 2022-05-26 15:28:00 Alexander [facility] PHOSPHORUS 2022-05-26 09:59:00 [facility] MAGNESIUM 2022-05-26 09:59:[address] [facility] BAS[facility] METABOLIC PANEL 2022-05-26 09:59[facility]00 [facility] ([facility], CL, CO2, GLUCOSE, Medica l Branch BUN, CREATININE, CA) CBC WITH DIFF 2022-05-26 09:59:[address] [facility] PO[facility]UCOSE (AUTOMATED) 2022-05-26 03:09:00 [facility] POCT GLUCOSE (AUTOMATED) 2022-05-25 23:18:00 [facility] POCT GLUCOSE (AUTOMATED) 2022-05-25 18:06:00 Alexander [facility] POCT GLUCOSE (AUTOMATED) 2022-05-25 15:17:00 [facility] POCT GLUCOSE (AUTOMATED) 2022-05-25 03:12:00 [facility] POCT GLUCOSE (AUTOMATED) 2022-05-25 01:41:00 [facility] POCT GLUCOSE (AUTOMATED) 2022-05-24 18:01:00 [facility] POCT GLUCOSE (AUTOMATED) 2022-05-24 15:23:00 [facility] HB ECG ROUTINE & RHYTHM 2022-05-24 13:36:35 Olena Gilbert [facility] PHOSPHORUS 2022-05-24 10:38:00 Benny Chris [facility] MAGNESIUM 2022-05-24 10:38:00 Benny [facility] BASIC METABOLIC PANEL 2022-05-24 10:38:00 Benny [facility] (NA, K, CL, CO2, GLUCOSE, Medica l Branch BUN, CREATININE, CA) CBC WITH DIFF 2022-05-24 10:38:00 Chris Zapata [facility] POCT GLUCOSE (AUTOMATED) 2022-05-24 03:02:00 Alexander [facility] POCT GLUCOSE (AUTOMATED) 2022-05-23 23:34:00 Alexander [facility] POCT GLUCOSE (AUTOMATED) 2022-05-23 18:11:00 Alexander [facility] POCT GLUCOSE (AUTOMATED) 2022-05-23 15:12:00 Alexander [facility] MAGNESIUM 2022-05-23 09:58:00 Benny Chris [facility] BASIC METABOLIC PANEL 2022-05-23 09:58:00 Chris Zapata [facility] (NA, K, CL, CO2, GLUCOSE, Medica l Branch BUN, CREATININE, CA) POCT GLUCOSE (AUTOMATED) 2022-05-23 02:39:00 [facility] POCT GLUCOSE (AUTOMATED) 2022-05-22 23:21:00 Alexander [facility] POCT GLUCOSE (AUTOMATED) 2022-05-22 20:35:00 [facility]entonP[facility] POCT GLUCOSE (AUTOMATED) 2022-05-22 18:31:00 Alexander [facility] HB ECG ROUTINE & RHYTHM 2022-05-22 15:37:20 Olena Gilbert [facility] POCT GLUCOSE (AUTOMATED) 2022-05-22 15:07:00 Alexander [facility] MAGNESIUM 2022-05-22 09:38:00 Chris Zapata [facility] BASIC METABOLIC PANEL 2022-05-22 09:38:00 Chris Zapata [facility] (NA, K, CL, CO2, GLUCOSE, Medica l Branch BUN, CREATININE, CA) POCT GLUCOSE (AUTOMATED) 2022-05-22 03:04:00 Alexander [facility] POCT GLUCOSE (AUTOMATED) 2022-05-21 23:16:00 Alexander [facility] POCT GLUCOSE (AUTOMATED) 2022-05-21 15:02:00 Alexander [facility] HB ECG ROUTINE & RHYTHM 2022-05-21 14:28:30 Ervin Cazares [facility] PHOSPHORUS 2022-05-21 10:53:00 Benny Chris [facility] MAGNESIUM 2022-05-21 10:53:00 Benny [facility] BASIC METABOLIC PANEL 2022-05-21 10:53:00 Chris Zapata [facility] (NA, K, CL, CO2, GLUCOSE, Medica l Branch BUN, CREATININE, CA) CBC WITH DIFF 2022-05-21 10:53:00 Benny Chris [facility] POCT GLUCOSE (AUTOMATED) 2022-05-21 03:47:00 Alexander [facility] POCT GLUCOSE (AUTOMATED) 2022-05-20 23:08:00 Alexander [facility] POCT GLUCOSE (AUTOMATED) 2022-05-20 19:21:00 Alexander [facility] HB ECG ROUTINE & RHYTHM 2022-05-20 14:06:21 Ervin Cazares [facility] POCT GLUCOSE (AUTOMATED) 2022-05-20 13:51:00 Alexander [facility] POCT GLUCOSE (AUTOMATED) 2022-05-20 07:57:00 Alexander [facility] POCT GLUCOSE (AUTOMATED) 2022-05-20 04:45:00 Alexander [facility] POCT GLUCOSE (AUTOMATED) 2022-05-20 00:28:00 Alexander [facility] POCT GLUCOSE (AUTOMATED) 2022-05-19 18:03:00 Alexander [facility] POCT GLUCOSE (AUTOMATED) 2022-05-19 14:43:00 Alexander [facility] HB ECG ROUTINE & RHYTHM 2022-05-19 13:37:14 Ervin Cazares [facility] PHOSPHORUS 2022-05-19 11:24:00 Chris Zapata [facility] MAGNESIUM 2022-05-19 11:24:00 Benny [facility] BASIC METABOLIC PANEL 2022-05-19 11:24:00 Chris Zapata [facility] (NA, K, CL, CO2, GLUCOSE, Medica l Branch BUN, CREATININE, CA) CBC WITH DIFF 2022-05-19 11:24:00 Benny Chris [facility] POCT GLUCOSE (AUTOMATED) 2022-05-19 03:37:00 Alexander [facility] POCT GLUCOSE (AUTOMATED) 2022-05-18 22:25:00 [facility] POCT GLUCOSE (AUTOMATED) 2022-05-18 18:03:00 Alexander [facility] POCT GLUCOSE (AUTOMATED) 2022-05-18 18:03:00 Alexander [facility] POCT GLUCOSE (AUTOMATED) 2022-05-18 14:51:00 Alexander [facility] POCT GLUCOSE (AUTOMATED) 2022-05-18 14:51:00 [facility] HB ECG ROUTINE & RHYTHM 2022-05-18 14:28:11 Olena Gilbert [facility] CBC WITH DIFF 2022-05-18 12:58:[address] [facility] CBC WITH DIFF 2022-05-18 12:58:00 [facility] PHOSPHORUS 2022-05-18 12:57:00 [facility] URIC ACID 2022-05-18 12:57:00 Benny [facility] MAGNESIUM 2022-05-18 12:57:00 [facility] BASIC METABOLIC PANEL 2022-05-18 12:57:00 jennifer [facility] (NA, K, CL, CO2, GLUCOSE, Medica l Branch BUN, CREATININE, CA) PHOSPHORUS 2022-05-18 12:57:00 [facility] URIC ACID 2022-05-18 12:57:00 Benny [facility] MAGNESIUM 2022-05-18 12:57:00 [facility] BASIC METABOLIC PANEL 2022-05-18 12:57:00 Dorothea [facility] (NA, K, CL, CO2, GLUCOSE, Medica l Branch BUN, CREATININE, CA) POCT GLUCOSE (AUTOMATED) 2022-05-18 03:43:00 Alexander [facility] POCT GLUCOSE (AUTOMATED) 2022-05-18 03:43:00 Alexander [facility] CBC WITHOUT DIFF 2022-05-18 00:45:00 Dorothea [facility] CBC WITHOUT DIFF 2022-05-18 00:45:00 Dorothea [facility] POCT GLUCOSE (AUTOMATED) 2022-05-17 23:08:00 Alexander [facility] POCT GLUCOSE (AUTOMATED) 2022-05-17 23:08:00 Alexander [facility] CARDIAC CATHETERIZATION 2022-05-17 21:37:27 [facility] 2022-05-17 21:37:27 [facility] 2022-05-17 21:37:27 [facility] 2022-05-17 21:37:27 [facility] CARDIAC CATHETERIZATION 2022-05-17 21:37:27 [facility] CARDIAC CATHETERIZATION 2022-05-17 21:37:27 [facility] POCT GLUCOSE (AUTOMATED) 2022-05-17 18:12:00 Rj Rosenthal Un iversity of [facility] POCT GLUCOSE (AUTOMATED) 2022-05-17 18:12:00 Rj Rosenthal Un iversity of [facility] POCT GLUCOSE (AUTOMATED) 2022-05-17 15:02:00 Rj Rosenthal E Un iversity of [facility] POCT GLUCOSE (AUTOMATED) 2022-05-17 15:02:00 Rj [facility] PHOSPHORUS 2022-05-17 10:39:00 Benny [facility] MAGNESIUM 2022-05-17 10:39:00 Benny [facility] BASIC METABOLIC PANEL 2022-05-17 10:39:00 Benny Chris [facility] (NA, K, CL, CO2, GLUCOSE, Medica l Branch BUN, CREATININE, CA) CBC WITH DIFF 2022-05-17 10:39:00 Benny [facility] PHOSPHORUS 2022-05-17 10:39:00 Benny [facility] MAGNESIUM 2022-05-17 10:39:00 Benny [facility] BASIC METABOLIC PANEL 2022-05-17 10:39:00 Benny [facility] (NA, K, CL, CO2, GLUCOSE, Medica l Branch BUN, CREATININE, CA) CBC WITH DIFF 2022-05-17 10:39:00 Benny [facility] POCT GLUCOSE (AUTOMATED) 2022-05-17 02:15:00 Rj Rosenthal [facility] POCT GLUCOSE (AUTOMATED) 2022-05-17 02:15:00 Rj Rosenthal [facility] POCT GLUCOSE (AUTOMATED) 2022-05-16 23:45:00 Rj Rosenthal E [facility] POCT GLUCOSE (AUTOMATED) 2022-05-16 23:45:00 Rj Rosenthal E [facility] POCT GLUCOSE (AUTOMATED) 2022-05-16 18:50:00 Rj Rosenthal E [facility] POCT GLUCOSE (AUTOMATED) 2022-05-16 18:50:00 Rj Rosenthal E [facility] POCT GLUCOSE (AUTOMATED) 2022-05-16 15:01:00 Rj Rosenthal E [facility] POCT GLUCOSE (AUTOMATED) 2022-05-16 15:01:00 Rj Rosenthal E [facility] POCT GLUCOSE (AUTOMATED) 2022-05-16 15:01:00 Rj Rosenthal E Un i[facility]ity [facility] HB ECG ROUTINE & RHYTHM 2022-05-16 13:56:37 Ervin Cazares [facility] HB ECG ROUTINE & RHYTHM 2022-05-16 13:56:37 Ervin Cazares [facility] PHOSPHORUS 2022-05-16 11:22:00 Benny Chris [facility] MAGNESIUM 2022-05-16 11:22:00 Benny [facility] BASIC METABOLIC PANEL 2022-05-16 11:22:00 Chris Zapata [facility] (NA, K, CL, CO2, GLUCOSE, Medica l Branch BUN, CREATININE, CA) PHOSPHORUS 2022-05-16 11:22:00 Benny Chris [facility] MAGNESIUM 2022-05-16 11:22:00 Benny Chris [facility] BASIC METABOLIC PANEL 2022-05-16 11:22:00 Chris Zapata [facility] (NA, K, CL, CO2, GLUCOSE, Medica l Branch BUN, CREATININE, CA) PHOSPHORUS 2022-05-16 11:22:00 Benny Chris [facility] MAGNESIUM 2022-05-16 11:22:00 Zapata, Chris [facility] BASIC METABOLIC PANEL 2022-05-16 11:22:00 Chris Zapata [facility] (NA, K, CL, CO2, GLUCOSE, Medica l Branch BUN, CREATININE, CA) POCT GLUCOSE (AUTOMATED) 2022-05-16 03:03:00 Rj [facility] POCT GLUCOSE (AUTOMATED) 2022-05-16 03:03:00 Rj Rosenthal [facility] POCT GLUCOSE (AUTOMATED) 2022-05-16 03:03:00 Rj Rosenthal [facility] POCT GLUCOSE (AUTOMATED) 2022-05-15 23:14:00 Rj Rosenthal [facility] POCT GLUCOSE (AUTOMATED) 2022-05-15 23:14:00 Rj Rosenthal [facility] POCT GLUCOSE (AUTOMATED) 2022-05-15 23:14:00 Rj Rosenthal [facility] POCT GLUCOSE (AUTOMATED) 2022-05-15 18:58:00 Rj Rosenthal [facility] POCT GLUCOSE (AUTOMATED) 2022-05-15 18:58:00 Rj Rosenthal [facility] POCT GLUCOSE (AUTOMATED) 2022-05-15 18:58:00 Rj Rosenthal [facility] POCT GLUCOSE (AUTOMATED) 2022-05-15 14:43:00 Rj Rosenthal [facility] POCT GLUCOSE (AUTOMATED) 2022-05-15 14:43:00 Rj Rosenthal [facility] POCT GLUCOSE (AUTOMATED) 2022-05-15 14:43:00 Rj Rosenthal [facility] HB ECG ROUTINE & RHYTHM 2022-05-15 13:41:24 Ervin Cazares [facility] HB ECG ROUTINE & RHYTHM 2022-05-15 13:41:24 Ervin Cazares [facility] BASIC METABOLIC PANEL 2022-05-15 11:55:00 Chris Zapata [facility] (NA, K, CL, CO2, GLUCOSE, Medica l Branch BUN, CREATININE, CA) BASIC METABOLIC PANEL 2022-05-15 11:55:00 Chris Zapata [facility] (NA, K, CL, CO2, GLUCOSE, Medica l Branch BUN, CREATININE, CA) BASIC METABOLIC PANEL 2022-05-15 11:55:00 Chris Zapata [facility] (NA, K, CL, CO2, GLUCOSE, Medica l Branch BUN, CREATININE, CA) POCT GLUCOSE (AUTOMATED) 2022-05-15 02:08:00 Rj Ros[facility] POCT GLUCOSE (AUTOMATED) 2022-05-15 02:08:00 Rj Rosenthal E [facility] POCT GLUCOSE (AUTOMATED) 2022-05-15 02:08:00 Rj Rosenthal E [facility] POCT GLUCOSE (AUTOMATED) 2022-05-14 22:20:00 Rj Ros[facility] POCT GLUCOSE (AUTOMATED) 2022-05-14 22:20:00 Rj [facility] POCT GLUCOSE (AUTOMATED) 2022-05-14 22:20:00 Rj [facility] IR CENTRALLY INSERTED 2022-05-14 21:12:04 [email or web address] [facility] DEVICE TUNNELED 5 OR Abdelmoneim Medical [facility] OLDER NO PORT/PUMP IR CENTRALLY INSERTED 2022-05-14 21:12:04 Alie [facility] [place] DEVICE TUNNELED 5 OR Abdelmoneim Medical [facility] OLDER NO PORT/PUMP IR CENTRALLY INSERTED 2022-05-14 21:12:04 Alie Lopez [facility] [place] DEVICE TUNNELED 5 OR Abdelmoneim [facility] OLDER NO PORT/PUMP PROTHROMBIN TIME / INR 2022-05-14 18:17:00 Alie Lopez [facility] PROTHROMBIN TIME / INR 2022-05-14 18:17:00 Alie Lopez [facility] PROTHROMBIN TIME / INR 2022-05-14 18:17:00 [facility] POCT GLUCOSE (AUTOMATED) 2022-05-14 18:02:00 Rj [facility] POCT GLUCOSE (AUTOMATED) 2022-05-14 18:02:00 Rj Rosenthal [facility] POCT GLUCOSE (AUTOMATED) 2022-05-14 18:02:00 Rj Rosenthal [facility] POCT GLUCOSE (AUTOMATED) 2022-05-14 15:41:00 Rj Rosenthal [facility] POCT GLUCOSE (AUTOMATED) 2022-05-14 15:41:00 Rj Rosenthal [facility] POCT GLUCOSE (AUTOMATED) 2022-05-14 15:41:[address] [facility] HB ECG ROUTINE & RHYTHM 2022-05-14 13:51:11 Ervin Cazares [facility] HB ECG ROUTINE & RHYTHM 2022-05-14 13:51:11 Ervin Cazares [facility] PHOSPHORUS 2022-05-14 11:53:00 Benny Chris [facility] MAGNESIUM 2022-05-14 11:53:00 Benny [facility] BASIC METABOLIC PANEL 2022-05-14 11:53:00 Chris Zapata [facility] (NA, K, CL, CO2, GLUCOSE, Medica l Branch BUN, CREATININE, CA) CBC WITH DIFF 2022-05-14 11:53:00 Benny [facility] CBC WITH DIFF 2022-05-14 11:53:00 Benny Chris [facility] PHOSPHORUS 2022-05-14 11:53:00 Benny [facility] MAGNESIUM 2022-05-14 11:53:00 Benny [facility] BASIC METABOLIC PANEL 2022-05-14 11:53:00 Chris Zapata [facility] (NA, K, CL, CO2, GLUCOSE, Medica l Branch BUN, CREATININE, CA) PHOSPHORUS 2022-05-14 11:53:00 Benny Chris [facility] MAGNESIUM 2022-05-14 11:53:00 Benny [facility] BASIC METABOLIC PANEL 2022-05-14 11:53:00 Chris Zapata [facility] (NA, K, CL, CO2, GLUCOSE, Medica l Branch BUN, CREATININE, CA) CBC WITH DIFF 2022-05-14 11:53:00 Benny Chris [facility] POCT GLUCOSE (AUTOMATED) 2022-05-14 03:19:[address] [facility] POCT GLUCOSE (AUTOMATED) 2022-05-14 03:19:[address] [facility] POCT GLUCOSE (AUTOMATED) 2022-05-14 03:19:[address] [facility] POCT GLUCOSE (AUTOMATED) 2022-05-13 23:23:00 Rj Rosenthal [facility] POCT GLUCOSE (AUTOMATED) 2022-05-13 23:23:00 Rj Rosenthal [facility] POCT GLUCOSE (AUTOMATED) 2022-05-13 23:23:[address] [facility] HEPATITIS B SURFACE 2022-05-13 21:41:00 Chris Zapata [facility] ANTIBODY [facility] HEPATITIS B SURFACE 2022-05-13 21:41:00 Benny Chris [facility] ANTIGEN [facility] HCV ANTIBODY 2022-05-13 21:41:00 Benny Chris [facility] HBC ANTIBODY (IGM & IGG) 2022-05-13 21:41:00 Benny Chris [facility] HCV ANTIBODY 2022-05-13 21:41:00 Benny [facility] HEPATITIS B SURFACE 2022-05-13 21:41:00 Benny Chris [facility] ANTIBODY Medical Branch HEPATITIS B SURFACE 2022-05-13 21:41:00 Benny Chris [facility] HBC ANTIBODY (IGM & IGG) 2022-05-13 21:41:00 Chris Zaapta [facility] HEPATITIS B SURFACE 2022-05-13 21:41:00 Chris Zapata [facility] ANTIBODY [facility] [place] HEPATITIS B SURFACE 2022-05-13 21:41:00 Benny Chris [facility] HCV ANTIBODY 2022-05-13 21:41:00 Benny Chris [facility] HBC ANTIBODY (IGM & IGG) 2022-05-13 21:41:00 Chris Zapata [facility] POCT GLUCOSE (AUTOMATED) 2022-05-13 18:27:00 Rj Rosenthal [facility] POCT GLUCOSE (AUTOMATED) 2022-05-13 18:27:00 Rj Rosenthal [facility] POCT GLUCOSE (AUTOMATED) 2022-05-13 18:27:00 Rj Rosenthal [facility] POCT GLUCOSE (AUTOMATED) 2022-05-13 15:18:00 Rj Rosenthal [facility] POCT GLUCOSE (AUTOMATED) 2022-05-13 15:18:00 Rj Rosenthal [facility] POCT GLUCOSE (AUTOMATED) 2022-05-13 15:18:[address] [facility] HB ECG ROUTINE & RHYTHM 2022-05-13 14:39:56 Ervin Cazares [facility] HB ECG ROUTINE & RHYTHM 2022-05-13 14:39:56 Ervin Cazares [facility] HB ECG ROUTINE & RHYTHM 2022-05-13 14:39:56 Ervin Cazares [facility] MAGNESIUM 2022-05-13 11:38:00 Benny Chris [facility] BASIC METABOLIC PANEL 2022-05-13 11:38:00 Chris Zapata [facility] (NA, K, CL, CO2, GLUCOSE, Medica l Branch BUN, CREATININE, CA) MAGNESIUM 2022-05-13 11:38:00 Benny Chris [facility] BASIC METABOLIC PANEL 2022-05-13 11:38:00 Benny Chris [facility] (NA, K, CL, CO2, GLUCOSE, Medica l Branch BUN, CREATININE, CA) MAGNESIUM 2022-05-13 11:38:00 Benny Chris [facility] BASIC METABOLIC PANEL 2022-05-13 11:38:00 [facility] (NA, K, CL, CO2, GLUCOSE, Medica l Branch BUN, CREATININE, CA) POCT GLUCOSE (AUTOMATED) 2022-05-13 06:44:00 Rj Rosenthal [facility] POCT GLUCOSE (AUTOMATED) 2022-05-13 06:44:00 Rj Rosenthal [facility] POCT GLUCOSE (AUTOMATED) 2022-05-13 06:44:00 Rj Rosenthal [facility] POCT GLUCOSE (AUTOMATED) 2022-05-13 02:58:00 Rj Rosenthal [facility] POCT GLUCOSE (AUTOMATED) 2022-05-13 02:58:00 Rj Rosenthal [facility] [place] [facility] POCT GLUCOSE (AUTOMATED) 2022-05-13 02:58:00 Rj Rosenthal [facility] [place] [facility] POCT GLUCOSE (AUTOMATED) 2022-05-13 00:41:00 Rj Rosenthal [facility] [place] [facility] POCT GLUCOSE (AUTOMATED) 2022-05-13 00:41:00 Rj Rosenthal [facility] [place] [facility] POCT GLUCOSE (AUTOMATED) 2022-05-13 00:41:00 Rj Rosenthal [facility] POCT GLUCOSE (AUTOMATED) 2022-05-12 17:40:00 Rj Rosenthal [facility] [place] [facility] POCT GLUCOSE (AUTOMATED) 2022-05-12 17:40:00 Rj Rosenthal [facility] POCT GLUCOSE (AUTOMATED) 2022-05-12 17:40:00 Rj Rosenthal [facility] POCT GLUCOSE (AUTOMATED) 2022-05-12 15:36:00 Rj Rosenthal [facility] POCT GLUCOSE (AUTOMATED) 2022-05-12 15:36:00 [facility] 2022-05-12 15:36:00 Rj Rosenthal [facility] HB ECG ROUTINE & RHYTHM 2022-05-12 14:14:58 Ofelia [facility] HB ECG ROUTINE & RHYTHM 2022-05-12 14:14:58 Ofelia [facility] HB ECG ROUTINE & RHYTHM 2022-05-12 14:14:58 Ofelia [facility] PHOSPHORUS 2022-05-12 10:48:00 Jesus [facility] MAGNESIUM 2022-05-12 10:48:00 Jesus [facility] BASIC METABOLIC PANEL 2022-05-12 10:48:00 Jesus [facility] (NA, K, CL, CO2, GLUCOSE, [facility]ica [facility] BUN, CREATININE, CA) CBC WITH DIFF 2022-05-12 10:48:00 Benny Chris [facility] PHOSPHORUS 2022-05-12 10:48:00 Jesus [facility] BASIC METABOLIC PANEL 2022-05-12 10:48:00 Jesus [facility] (NA, K, CL, CO2, GLUCOSE, [facility] BUN, CREATININE, CA) MAGNESIUM 2022-05-12 10:48:00 Jesus [facility] CBC WITH DIFF 2022-05-12 10:48:00 Benny Chris [facility] PHOSPHORUS 2022-05-12 10:48:00 Jesus [facility] MAGNESIUM 2022-05-12 10:48:00 Jesus [facility] BASIC METABOLIC PANEL 2022-05-12 10:48:00 Jesus [facility] (NA, K, CL, CO2, GLUCOSE, [facility] BUN, CREATININE, CA) CBC WITH DIFF 2022-05-12 10:48:00 Benny [facility] POCT GLUCOSE (AUTOMATED) 2022-05-12 02:49:00 Rj Rosenthal [facility] POCT GLUCOSE (AUTOMATED) 2022-05-12 02:49:00 Rj Rosenthal [facility] POCT GLUCOSE (AUTOMATED) 2022-05-12 02:49:00 Rj Rosenthal [facility] POCT GLUCOSE (AUTOMATED) 2022-05-11 23:40:00 Rj Rosenthal [facility] POCT GLUCOSE (AUTOMATED) 2022-05-11 23:40:00 Rj Rosenthal [facility] POCT GLUCOSE (AUTOMATED) 2022-05-11 23:40:00 Rj Rosenthal [facility] POCT GLUCOSE (AUTOMATED) 2022-05-11 17:37:00 Rj Rosenthal [facility] POCT GLUCOSE (AUTOMATED) 2022-05-11 17:37:00 Rj Rosenthal [facility] POCT GLUCOSE (AUTOMATED) 2022-05-11 17:37:00 Rj Rosenthal [facility] HB ECG ROUTINE & RHYTHM 2022-05-11 14:04:51 [facility] HB ECG ROUTINE & RHYTHM 2022-05-11 14:04:51 Gilbert [facility] ersity [facility] HB ECG ROUTINE & RHYTHM 2022-05-11 14:04:51 Ofelia [facility] ersity of [facility] POCT GLUCOSE (AUTOMATED) 2022-05-11 13:51:00 Rj Rosenthal [facility] POCT GLUCOSE (AUTOMATED) 2022-05-11 13:51:00 Rj Rosenthal [facility] POCT GLUCOSE (AUTOMATED) 2022-05-11 13:51:00 Rj Rosenthal Un [facility]ity of [facility] PHOSPHORUS 2022-05-11 11:21:00 Benny Chris [facility] MAGNESIUM 2022-05-11 11:21:00 Benny [facility] BASIC METABOLIC PANEL 2022-05-11 11:21:00 Benny Chris [facility] (NA, K, CL, CO2, GLUCOSE, Medica l Branch BUN, CREATININE, CA) CBC WITH DIFF 2022-05-11 11:21:00 Benny [facility] CBC WITH DIFF 2022-05-11 11:21:00 Benny [facility] PHOSPHORUS 2022-05-11 11:21:00 Benny [facility] MAGNESIUM 2022-05-11 11:21:00 Benny [facility] BASIC METABOLIC PANEL 2022-05-11 11:21:00 Benny Chris [facility] (NA, K, CL, CO2, GLUCOSE, Medica l Branch BUN, CREATININE, CA) PHOSPHORUS 2022-05-11 11:21:00 Benny [facility] MAGNESIUM 2022-05-11 11:21:00 Benny [facility] BASIC METABOLIC PANEL 2022-05-11 11:21:00 Benny Chris [facility] (NA, K, CL, CO2, GLUCOSE, Medica l Branch BUN, CREATININE, CA) CBC WITH DIFF 2022-05-11 11:21:00 Benny [facility] POCT GLUCOSE (AUTOMATED) 2022-05-11 01:49:00 Rj Rosenthal iversity of [facility] POCT GLUCOSE (AUTOMATED) 2022-05-11 01:49:00 Rj Rosenthal iversity of [facility] POCT GLUCOSE (AUTOMATED) 2022-05-11 01:49:00 Rj Rosenthal iversity of [facility] POCT GLUCOSE (AUTOMATED) 2022-05-10 23:35:00 Rj Rosenthal iversity of [facility] POCT GLUCOSE (AUTOMATED) 2022-05-10 23:35:00 Rj Rosenthal iversity of [facility] POCT GLUCOSE (AUTOMATED) 2022-05-10 23:35:00 Rj Rosenthal iversity of [facility] POCT GLUCOSE (AUTOMATED) 2022-05-10 17:55:00 Rj Rosenthal Un [facility] of [facility] POCT GLUCOSE (AUTOMATED) 2022-05-10 17:55:00 Rj Rosenthal Un [facility] of [facility] POCT GLUCOSE (AUTOMATED) 2022-05-10 17:55:00 Rj Rosenthal Un [facility]ity of [facility] COMPLETE ECHOCARDIOGRAM 2022-05-10 16:01:46 [facility] DOBUTAMINE STRESS TEST [facility] CONTRAST COMPLETE ECHOCARDIOGRAM 2022-05-10 16:01:46 [facility] DOBUTAMINE STRESS TEST [facility] CONTRAST COMPLETE ECHOCARDIOGRAM 2022-05-10 16:01:46 [facility] DOBUTAMINE STRESS TEST [facility] CONTRAST POCT GLUCOSE (AUTOMATED) 2022-05-10 14:17:00 Rj Rosenthal iversity of [facility] POCT GLUCOSE (AUTOMATED) 2022-05-10 14:17:00 Rj Rosenthal Un [facility] of [facility] POCT GLUCOSE (AUTOMATED) 2022-05-10 14:17:00 Rj Rosenthal Un [facility]ity of [facility] PHOSPHORUS 2022-05-10 09:53:00 [facility] MAGNESIUM 2022-05-10 09:53:[address] [facility]OLIC PANEL 2022-05-10 09:53:00 [facility], CL, CO2, GLUCOSE, Medica l Branch BUN, CREATININE, CA) CBC WITH DIFF 2022-05-10 09:53:[address] [facility] WITH DIFF 2022-05-10 09:53:[address] [facility] BASIC METABOLIC PANEL 2022-05-10 09:53:00 [facility] ([facility], K, CL, CO2, GLUCOSE, Medica l Branch BUN, CREATININE, CA) MAGNESIUM 2022-05-10 09:53:00 Amjennifer [facility] PHOSPHORUS 2022-05-10 09:53:00 Amjennifer, [facility] PHOSPHORUS 2022-05-10 09:53:00 Amjennifer, [facility] MAGNESIUM 2022-05-10 09:53:00 Amjennifer [facility] BASIC METABOLIC PANEL 2022-05-10 09:53:00 jennifer [facility] (NA, K, CL, CO2, GLUCOSE, Medica l Branch BUN, CREATININE, CA) CBC WITH DIFF 2022-05-10 09:53:00 Amjennifer [facility] DOBUTAMINE STRESS ECHO 2022-05-10 06:01:00 Doctor Unassigned, Mitzy [facility] POCT GLUCOSE (AUTOMATED) 2022-05-10 02:07:00 Rj Rosenthal Un iversity of [facility] POCT GLUCOSE (AUTOMATED) 2022-05-10 02:07:00 Rj Rosenthal Un iversity of [facility] POCT GLUCOSE (AUTOMATED) 2022-05-10 02:07:00 Rj Rosenthal Un i[facility]ity of [facility] POCT GLUCOSE (AUTOMATED) 2022-05-09 22:32:00 Rj Rosenthal Un i[facility]ity of [facility] POCT GLUCOSE (AUTOMATED) 2022-05-09 22:32:00 Rj Rosenthal Un i[facility]ity of [facility] POCT GLUCOSE (AUTOMATED) 2022-05-09 22:32:00 Rj Rosenthal Un [facility]ity of [facility] POCT GLUCOSE (AUTOMATED) 2022-05-09 18:08:00 Rj Rosenthal Un i[facility]ity of [facility] POCT GLUCOSE (AUTOMATED) 2022-05-09 18:08:00 Rj Rosenthal Un [facility]ity of [facility] POCT GLUCOSE (AUTOMATED) 2022-05-09 18:08:00 Rj Rosenthal Un [facility]ity of [facility] POCT GLUCOSE (AUTOMATED) 2022-05-09 14:49:00 Rj Rosenthal Un [facility]ity of [facility] POCT GLUCOSE (AUTOMATED) 2022-05-09 14:49:00 [facility] ([facility]OMATED) 2022-05-09 14:49:00 [facility]HYTHM 2022-05-09 14:48:56 Ofelia [facility] HB ECG ROUTINE & RHYTHM 2022-05-09 14:48:56 Ofelia [facility] HB ECG ROUTINE & RHYTHM 2022-05-09 14:48:56 Ofelia [facility] PHOSPHORUS 2022-05-09 10:14:00 [facility]-05-09 10:14[facility]00 [facility] 2022-05-09 10:14[facility]00 [facility] ([facility], [facility], CL, CO2, GLUCOSE, [facility] BUN, CREATININE, CA) PHOSPHORUS 2022-05-09 10:14:00 Jesus [facility] MAGNESIUM 2022-05-09 10:14:00 [facility] 2022-05-09 10:14:00 [facility] ([facility], K, CL, CO2, GLUCOSE, [facility] BUN, CREATININE, CA) PHOSPHORUS 2022-05-09 10:14:00 [facility] 2022-05-09 10:14:00 [facility] BASIC METABOLIC PANEL 2022-05-09 10:14:00 [facility] ([facility], K, CL, CO2, GLUCOSE, [facility] BUN, CREATININE, CA) POCT GLUCOSE (AUTOMATED) 2022-05-09 03:15:00 [facility] PO[facility]SE (AUTOMATED) 2022-05-09 03:15:00 [facility] PO[facility]SE (AUTOMATED) 2022-05-09 03:15:00 Rj Rosenthal iversity of [facility] POCT GLUCOSE (AUTOMATED) 2022-05-08 23:13:00 Rj Rosenthal Un iversity of [facility] POCT GLUCOSE (AUTOMATED) 2022-05-08 23:13:00 Rj Rosenthal Un iversity of [facility] POCT GLUCOSE (AUTOMATED) 2022-05-08 23:13:00 Rj Rosenthal [facility] HEPATITIS B SURFACE 2022-05-08 21:20[facility] HEPATITIS B SURFACE 2022-05-08 21:20[facility]00 [facility] HEPATITIS B SURFACE 2022-05-08 21:20[facility]SE (AUTOMATED) 2022-05-08 18:06:00 Rj Rosenthal iversity of [facility] POCT GLUCOSE (AUTOMATED) 2022-05-08 18:06:00 Rj Rosenthal Un [facility] POCT GLUCOSE (AUTOMATED) 2022-05-08 18:06:00 Rj Rosenthal [facility] POCT GLUCOSE (AUTOMATED) 2022-05-08 15:23:00 Rj Rosenthal [facility] POCT GLUCOSE (AUTOMATED) 2022-05-08 15:23:00 Rj Rosenthal Un [facility] POCT GLUCOSE (AUTOMATED) 2022-05-08 15:23:00 Rj Rosenthal Un iversity of [facility] PHOSPHORUS 2022-05-08 12:30:00 Benny Chris [facility] MAGNESIUM 2022-05-08 12:30:00 Benny [facility] BASIC METABOLIC PANEL 2022-05-08 12:30:00 Chris Zapata [facility] (NA, K, CL, CO2, GLUCOSE, Medica l Branch BUN, CREATININE, CA) CBC WITH DIFF 2022-05-08 12:30:00 Benny [facility] HEPATITIS B SURFACE 2022-05-08 12:30:[address] [facility] CBC WITH DIFF 2022-05-08 12:30:00 Benny Chris [facility] PHOSPHORUS 2022-05-08 12:30:00 Benny Chris [facility] MAGNESIUM 2022-05-08 12:30:00 Benny [facility] BASIC METABOLIC PANEL 2022-05-08 12:30:00 Benny Chris [facility] (NA, K, CL, CO2, GLUCOSE, Medica l Branch BUN, CREATININE, CA) HEPATITIS B SURFACE 2022-05-08 12:30:[address] [facility] PHOSPHORUS 2022-05-08 12:30:00 Benny Chris [facility] MAGNESIUM 2022-05-08 12:30:00 Benny [facility] BASIC METABOLIC PANEL 2022-05-08 12:30:00 Chris Zapata [facility] (NA, K, CL, CO2, GLUCOSE, Medica l Branch BUN, CREATININE, CA) CBC WITH DIFF 2022-05-08 12:30:00 Benny [facility] HEPATITIS B SURFACE 2022-05-08 12:30:00 Carissa [facility] POCT GLUCOSE (AUTOMATED) 2022-05-08 04:37:00 Rj Rosenthal [facility] POCT GLUCOSE (AUTOMATED) 2022-05-08 04:37:00 Rj Rosenthal [facility] POCT GLUCOSE (AUTOMATED) 2022-05-08 04:37:00 Rj Rosenthal [facility] POCT GLUCOSE (AUTOMATED) 2022-05-07 23:08:00 Rj Rosenthal [facility] POCT GLUCOSE (AUTOMATED) 2022-05-07 23:08:00 Rj Rosenthal [facility] POCT GLUCOSE (AUTOMATED) 2022-05-07 23:08:00 Rj Rosenthal [facility] XR CHEST 1 VW 2022-05-07 21:58:08 Benny Chris [facility] XR CHEST 1 VW 2022-05-07 21:58:08 Benny Chris [facility] XR CHEST 1 VW 2022-05-07 21:58:08 Benny [facility] POCT GLUCOSE (AUTOMATED) 2022-05-07 18:49:[address] [facility] [facility] POCT GLUCOSE (AUTOMATED) 2022-05-07 18:49:00 Rj Rosenthal E [facility] POCT GLUCOSE (AUTOMATED) 2022-05-07 18:49:00 Rj Rosenthal E Un [facility] POCT GLUCOSE (AUTOMATED) 2022-05-07 14:33:00 Rj Rosenthal E [facility] POCT GLUCOSE (AUTOMATED) 2022-05-07 14:33:00 Rj Rosenthal E [facility] POCT GLUCOSE (AUTOMATED) 2022-05-07 14:33:00 Rj Rosenthal E Un iversity [facility] HB ECG ROUTINE & RHYTHM 2022-05-07 13:33:50 Ofelia [facility] HB ECG ROUTINE & RHYTHM 2022-05-07 13:33:50 [facility]OUT[facility] & RHYTHM 2022-05-07 13:33:50 Ofelia [facility] PHOSPHORUS 2022-05-07 12:04:00 Benny Chris [facility] MAGNESIUM 2022-05-07 12:04:00 Benny [facility] BASIC METABOLIC PANEL 2022-05-07 12:04:00 Benny Chris [facility] (NA, K, CL, CO2, GLUCOSE, Medica l Branch BUN, CREATININE, CA) MAGNESIUM 2022-05-07 12:04:00 Benny [facility] BASIC METABOLIC PANEL 2022-05-07 12:04:00 Chris Zapata [facility] (NA, K, CL, CO2, GLUCOSE, Medica l Branch BUN, CREATININE, CA) PHOSPHORUS 2022-05-07 12:04:00 Benny [facility] PHOSPHORUS 2022-05-07 12:04:00 Benny [facility] MAGNESIUM 2022-05-07 12:04:00 Benny [facility] BASIC METABOLIC PANEL 2022-05-07 12:04:00 Chris Zapata [facility] (NA, K, CL, CO2, GLUCOSE, Medica l Branch BUN, CREATININE, CA) CBC WITH DIFF 2022-05-07 12:03:00 Benny [facility] CBC WITH DIFF 2022-05-07 12:03:00 Benny [facility] CBC WITH DIFF 2022-05-07 12:03:00 Benny [facility] POCT GLUCOSE (AUTOMATED) 2022-05-07 05:22:00 Rj Rosenthal [facility] POCT GLUCOSE (AUTOMATED) 2022-05-07 05:22:00 Rj Rosenthal Un [facility] POCT GLUCOSE (AUTOMATED) 2022-05-07 05:22:00 Rj Rosenthal Un [facility] POCT GLUCOSE (AUTOMATED) 2022-05-07 00:17:00 Rj Rosenthal Un [facility] POCT GLUCOSE (AUTOMATED) 2022-05-07 00:17:00 Rj Rosenthal Un [facility] POCT GLUCOSE (AUTOMATED) 2022-05-07 00:17:00 Rj Rosenthal [facility] POCT GLUCOSE (AUTOMATED) 2022-05-06 19:46:00 Rj Rosenthal [facility] POCT GLUCOSE (AUTOMATED) 2022-05-06 19:46:00 Rj Rosenthal [facility] POCT GLUCOSE (AUTOMATED) 2022-05-06 19:46:00 Rj Rosenthal [facility] POCT GLUCOSE (AUTOMATED) 2022-05-06 17:59:00 Rj Rosenthal [facility] POCT GLUCOSE (AUTOMATED) 2022-05-06 17:59:00 [facility]) 2022-05-06 17:59:00 [facility] (AUTOMATED) 2022-05-06 14:20:00 [facility] ([facility]OMATED) 2022-05-06 14:20:00 [facility] PO[facility] GLU[facility]SE (AUTOMATED) 2022-05-06 14:20:00 [facility]OUT[facility] & RHYTHM 2022-05-06 13:35:32 Ofelia [facility] HB ECG ROUTINE & RHYTHM 2022-05-06 13:35:32 Ofelia [facility] HB ECG ROUTINE & RHYTHM 2022-05-06 13:35:32 Ofelia [facility] PHOSPHORUS 2022-05-06 12:05:00 Benny Chris [facility] MAGNESIUM 2022-05-06 12:05:00 Benny [facility] BASIC METABOLIC PANEL 2022-05-06 12:05:00 Chris Zapata [facility] (NA, K, CL, CO2, GLUCOSE, Medica l Branch BUN, CREATININE, CA) CBC WITH DIFF 2022-05-06 12:05:00 Benny [facility] CBC WITH DIFF 2022-05-06 12:05:00 Benny [facility] PHOSPHORUS 2022-05-06 12:05:00 Benny Chris [facility] MAGNESIUM 2022-05-06 12:05:00 Benny [facility] BASIC METABOLIC PANEL 2022-05-06 12:05:00 Chris Zapata [facility] (NA, K, CL, CO2, GLUCOSE, Medica l Branch BUN, CREATININE, CA) PHOSPHORUS 2022-05-06 12:05:00 Benny [facility] MAGNESIUM 2022-05-06 12:05:00 Benny Chris [facility] BASIC METABOLIC PANEL 2022-05-06 12:05:00 Benny Chris [facility] (NA, K, CL, CO2, GLUCOSE, Medica l Branch BUN, CREATININE, CA) CBC WITH DIFF 2022-05-06 12:05:00 [facility] POCT GLUCOSE (AUTOMATED) 2022-05-06 04:41:00 Rj Rosenthal [facility] POCT GLUCOSE (AUTOMATED) 2022-05-06 04:41:00 Rj Rosenthal Un [facility] of [facility] POCT GLUCOSE (AUTOMATED) 2022-05-06 04:41:00 Rj Rosenthal Un [facility] POCT GLUCOSE (AUTOMATED) 2022-05-05 22:57:00 Rj Rosenthal Un [facility] of [facility] POCT GLUCOSE (AUTOMATED) 2022-05-05 22:57:00 Rj Rosenthal Un [facility] POCT GLUCOSE (AUTOMATED) 2022-05-05 22:57:00 Rj Rosenthal Un [facility] POCT GLUCOSE (AUTOMATED) 2022-05-05 18:27:00 Rj Rosenthal Un [facility] of [facility] POCT GLUCOSE (AUTOMATED) 2022-05-05 18:27:00 Rj Rosenthal Un [facility] POCT GLUCOSE (AUTOMATED) 2022-05-05 18:27:00 Rj Rosenthal [facility] POCT GLUCOSE (AUTOMATED) 2022-05-05 14:20:00 Rj Rosenthal Un [facility] POCT GLUCOSE (AUTOMATED) 2022-05-05 14:20:00 Rj Rosenthal Un [facility] POCT GLUCOSE (AUTOMATED) 2022-05-05 14:20:00 Rj Rosenthal Un [facility] HB ECG ROUTINE & RHYTHM 2022-05-05 14:12:39 Gilbert [facility] HB ECG ROUTINE & RHYTHM 2022-05-05 14:12:39 Ofelia [facility] HB ECG ROUTINE & RHYTHM 2022-05-05 14:12:39 Ofelia [facility] PHOSPHORUS 2022-05-05 11:13:00 Benny [facility] MAGNESIUM 2022-05-05 11:13:00 Benny [facility] BASIC METABOLIC PANEL 2022-05-05 11:13:00 Benny Chris [facility] (NA, K, CL, CO2, GLUCOSE, Medica l Branch BUN, CREATININE, CA) CBC WITH DIFF 2022-05-05 11:13:00 Benny [facility] N-TERMINAL PRO-BNP 2022-05-05 11:13:00 Benny [facility] CBC WITH DIFF 2022-05-05 11:13:00 Benny [facility] PHOSPHORUS 2022-05-05 11:13:00 Benny [facility] MAGNESIUM 2022-05-05 11:13:00 Benny [facility] BASIC METABOLIC PANEL 2022-05-05 11:13:00 Benny Chris [facility] (NA, K, CL, CO2, GLUCOSE, Medica l Branch BUN, CREATININE, CA) N-TERMINAL PRO-BNP 2022-05-05 11:13:00 Benny Chris [facility] PHOSPHORUS 2022-05-05 11:13:00 Benny [facility] MAGNESIUM 2022-05-05 11:13:00 Benny [facility] BASIC METABOLIC PANEL 2022-05-05 11:13:00 Benny Chris [facility] (NA, K, CL, CO2, GLUCOSE, Medica l Branch BUN, CREATININE, CA) CBC WITH DIFF 2022-05-05 11:13:00 Benny [facility] N-TERMINAL PRO-BNP 2022-05-05 11:13:00 Benny Chris [facility] POCT GLUCOSE (AUTOMATED) 2022-05-05 02:47:00 [facility]) 2022-05-05 02:47:00 Rj Rosenthal [facility] POCT GLUCOSE (AUTOMATED) 2022-05-05 02:47:00 Rj Rosenthal Un [facility] POCT GLUCOSE (AUTOMATED) 2022-05-04 23:29:00 Rj Rosenthal [facility] POCT GLUCOSE (AUTOMATED) 2022-05-04 23:29:00 Rj Rosenthal [facility] POCT GLUCOSE (AUTOMATED) 2022-05-04 23:29:00 Rj Rosenthal Un [facility] POCT GLUCOSE (AUTOMATED) 2022-05-04 18:27:00 Rj Rosenthal Un [facility] POCT GLUCOSE (AUTOMATED) 2022-05-04 18:27:00 Rj Rosenthal Un [facility] POCT GLUCOSE (AUTOMATED) 2022-05-04 18:27:00 Rj Rosenthal Un [facility] POCT GLUCOSE (AUTOMATED) 2022-05-04 14:48:00 Rj Rosenthal Un [facility] POCT GLUCOSE (AUTOMATED) 2022-05-04 14:48:00 Rj Rosenthal Un [facility] POCT GLUCOSE (AUTOMATED) 2022-05-04 14:48:00 Rj Rosenthal Un [facility] HB ECG ROUTINE & RHYTHM 2022-05-04 14:44:54 Ofelia [facility] HB ECG ROUTINE & RHYTHM 2022-05-04 14:44:54 Ofelia [facility] HB ECG ROUTINE & RHYTHM 2022-05-04 14:44:54 Ofelia [facility] PHOSPHORUS 2022-05-04 09:26:00 Benny Chris [facility] MAGNESIUM 2022-05-04 09:26:00 Benny [facility] BASIC METABOLIC PANEL 2022-05-04 09:26:00 Chris Zapata [facility] (NA, K, CL, CO2, GLUCOSE, Medica l Branch BUN, CREATININE, CA) CBC WITH DIFF 2022-05-04 09:26:00 Benny [facility] CBC WITH DIFF 2022-05-04 09:26:00 Benny [facility] PHOSPHORUS 2022-05-04 09:26:00 Benny [facility] MAGNESIUM 2022-05-04 09:26:00 Benny [facility] BASIC METABOLIC PANEL 2022-05-04 09:26:00 Benny Chris [facility] (NA, K, CL, CO2, GLUCOSE, Medica l Branch BUN, CREATININE, CA) PHOSPHORUS 2022-05-04 09:26:00 Benny [facility] MAGNESIUM 2022-05-04 09:26:00 Benny [facility] BASIC METABOLIC PANEL 2022-05-04 09:26:00 Benny [facility] (NA, K, CL, CO2, GLUCOSE, Medica l Branch BUN, CREATININE, CA) CBC WITH DIFF 2022-05-04 09:26:00 Benny [facility] POCT GLUCOSE (AUTOMATED) 2022-05-04 03:12:00 Rj Rosenthal iversity of [facility] POCT GLUCOSE (AUTOMATED) 2022-05-04 03:12:00 Rj Rosenthal Un i[facility] of [facility] POCT GLUCOSE (AUTOMATED) 2022-05-04 03:12:00 Rj Rosenthal Un [facility] of [facility] POCT GLUCOSE (AUTOMATED) 2022-05-03 23:02:00 Rj Rosenthal Un [facility] POCT GLUCOSE (AUTOMATED) 2022-05-03 23:02:00 Rj Rosenthal iversity of [facility] POCT GLUCOSE (AUTOMATED) 2022-05-03 23:02:00 Rj Rosenthal Un [facility] POCT GLUCOSE (AUTOMATED) 2022-05-03 18:17:00 Rj Rosenthal Un [facility] POCT GLUCOSE (AUTOMATED) 2022-05-03 18:17:00 Rj Rosenthal iversity of [facility] POCT GLUCOSE (AUTOMATED) 2022-05-03 18:17:00 Rj Rosenthal Un [facility] of [facility] TRANSTHORACIC ECHO (TTE) 2022-05-03 17:55:00 Olena Gilbert versity [facility] W/ CONTRAST Medical [facility] TRANSTHORACIC ECHO (TTE) 2022-05-03 17:55:00 Olena Gilbert versity [facility] W/ CONTRAST [facility] TRANSTHORACIC ECHO (TTE) 2022-05-03 17:55:00 Olena Gilbert versity [facility] W/ CONTRAST [facility] HB ECG ROUTINE & RHYTHM 2022-05-03 16:14:16 Ofelia [facility] HB ECG ROUTINE & RHYTHM 2022-05-03 16:14:16 Ofelia [facility] HB ECG ROUTINE & RHYTHM 2022-05-03 16:14:16 [facility]) 2022-05-03 14:18:00 Rj Rosenthal Un [facility] POCT GLUCOSE (AUTOMATED) 2022-05-03 14:18:00 Rj Rosenthal Un i[facility] of [facility] POCT GLUCOSE (AUTOMATED) 2022-05-03 14:18:00 Rj Rosenthal Un i[facility] of [facility] PHOSPHORUS 2022-05-03 07:40:00 [facility] MAGNESIUM 2022-05-03 07:40:00 Kentrell [facility] COMP. METABOLIC PANEL 2022-05-03 07:40:00 Gerardo Pfeiffer [facility] ([id number]) [facility] INTACT PTH CALCIUM GROUP 2022-05-03 07:40:00 Chris Zapata [facility] INTACT PTH CALCIUM GROUP 2022-05-03 07:40:00 Crhis Zapata [facility] MAGNESIUM 2022-05-03 07:40:00 Kentrell [facility] COMP. METABOLIC PANEL 2022-05-03 07:40:00 Gerardo Pfeiffer [facility] ([id number]) Medical Branch PHOSPHORUS 2022-05-03 07:40:[address] [facility] PHOSPHORUS 2022-05-03 07:40:[address] [facility] [place] [facility] MAGNESIUM 2022-05-03 07:40:[address] [facility] COMP. METABOLIC PANEL 2022-05-03 07:40:00 Gerardo Pfeiffer [facility] ([id number]) [facility] INTACT PTH CALCIUM GROUP 2022-05-03 07:40:00 Chris Zapata Uni versity of [facility] ACUTE CARE ARTERIAL BLOOD 2022-05-03 07:39:00 Olena Gilbert iversity of [facility] ACUTE CARE ARTERIAL BLOOD 2022-05-03 07:39:00 Olena Gilbert iversity of [facility] ACUTE CARE ARTERIAL BLOOD 2022-05-03 07:39:00 Olena Gilbert iversity of [facility] POCT GLUCOSE (AUTOMATED) 2022-05-03 03:30:00 Rj Rosenthal i[facility]ity of [facility] POCT GLUCOSE (AUTOMATED) 2022-05-03 03:30:00 Rj Rosenthal iversity of [facility] POCT GLUCOSE (AUTOMATED) 2022-05-03 03:30:00 Rj Rosenthal Un i[facility] of [facility] POCT GLUCOSE (AUTOMATED) 2022-05-03 00:04:00 Rj Rosenthal iversity of [facility] POCT GLUCOSE (AUTOMATED) 2022-05-03 00:04:00 Rj Rosenthal Un i[facility] of [facility] POCT GLUCOSE (AUTOMATED) 2022-05-03 00:04:00 Rj Rosenthal Un i[facility] of [facility] AC PANEL 20 + LACTIC ACID 2022-05-02 21:58:00 Gerardo Pfeiffer Un iversity of [facility] AC PANEL 20 + LACTIC ACID 2022-05-02 21:58:00 Gerardo Pfeiffer Un i[facility]ity of [facility] AC PANEL 20 + LACTIC ACID 2022-05-02 21:58:00 Gerardo Pfeiffer iversity of [facility] POCT GLUCOSE (AUTOMATED) 2022-05-02 19:36:00 Rj Rosenthal Un i[facility]ity of [facility] POCT GLUCOSE (AUTOMATED) 2022-05-02 19:36:00 Rj Rosenthal Un [facility] of [facility] POCT GLUCOSE (AUTOMATED) 2022-05-02 19:36:00 Rj Rosenthal iversity of [facility] POCT GLUCOSE (AUTOMATED) 2022-05-02 15:21:00 Rj Rosenthal Un i[facility] of [facility] POCT GLUCOSE (AUTOMATED) 2022-05-02 15:21:00 Rj Rosenthal iversity of [facility] POCT GLUCOSE (AUTOMATED) 2022-05-02 15:21:[address] [facility] HB ECG ROUTINE & RHYTHM 2022-05-02 07:03:46 [facility] & RHYTHM 2022-05-02 07:03:46 [facility] ROUTINE & RHYTHM 2022-05-02 07:03:46 Ofelia [facility] EXTRA TUBE LAV 2022-05-02 06:09:00 Arash [facility] EXTRA TUBE LAV 2022-05-02 06:09:00 Arash [facility] EXTRA TUBE LAV 2022-05-02 06:09:00 Arash [facility] ACUTE CARE ARTERIAL BLOOD 2022-05-02 06:08:00 Olena Gilbert iversity [facility] ACUTE CARE ARTERIAL BLOOD 2022-05-02 06:08:00 Olena Gilbert iversity [facility] ACUTE CARE ARTERIAL BLOOD 2022-05-02 06:08:00 Olena Gilbert iverstiara of [facility] PHOSPHORUS 2022-05-02 05:57:00 Olena Gilbert [facility] MAGNESIUM 2022-05-02 05:57:00 [facility] 2022-05-02 05:57:00 Ofelia [facility] BASIC METABOLIC PANEL 2022-05-02 05:57:00 Olena Gilbert [facility] (NA, K, CL, CO2, GLUCOSE, Medica l Branch BUN, CREATININE, CA) LIPID PANEL ([id number])(TOTAL 2022-05-02 05:57:00 Olena Gilbert [facility] CHOLESTEROL, Medical Branch TRIGLYCERIDES, HDL) PROTHROMBIN TIME / INR 2022-05-02 05:57:00 Olena Gilbert [facility] ACTIVATED PARTIAL 2022-05-02 05:57:00 Ofelia [facility] TROPONIN I 2022-05-02 05:57:00 Ofelia [facility] PHOSPHORUS 2022-05-02 05:57:00 Ofelia [facility] MAGNESIUM 2022-05-02 05:57:00 Ofelia [facility] BASIC METABOLIC PANEL 2022-05-02 05:57:00 Ofelia [facility] (NA, K, CL, CO2, GLUCOSE, Medica l Branch BUN, CREATININE, CA) LIPID PANEL ([id number])(TOTAL 2022-05-02 05:57:00 Olena Gilbert [facility] CHOLESTEROL, Medical Branch TRIGLYCERIDES, HDL) PROTHROMBIN TIME / INR 2022-05-02 05:57:00 Olena Gilbert [facility] ACTIVATED PARTIAL 2022-05-02 05:57:00 Ofelia [facility] PHOSPHORUS 2022-05-02 05:57:00 Ofelia [facility] MAGNESIUM 2022-05-02 05:57:00 Ofelia [facility] TROPONIN I 2022-05-02 05:57:00 Ofelia [facility] BASIC METABOLIC PANEL 2022-05-02 05:57:00 Olena Gilbert [facility] sity [facility] (NA, K, CL, CO2, GLUCOSE, Medica l Branch BUN, CREATININE, CA) LIPID PANEL ([id number])(TOTAL 2022-05-02 05:57:00 [facility] TRIGLY[facility]ERID[facility], HDL) PROTHROMBIN TIME / INR 2022-05-02 05:57:00 [facility] 2022-05-02 05:57:00 Olena Gilbert [facility] MICROALBUMIN URINE 2022-05-02 05:21:00 Chris Zapata [facility] URINALYSIS 2022-05-02 05:21:00 Rj Rosenthal [facility] PROTEIN CREAT RATIO URINE 2022-05-02 05:21:00 Chris Zapata Un iversity of [facility] EXTRA TUBE URINE CULTURE 2022-05-02 05:21:00 Hillary Antoine [facility] URINALYSIS 2022-05-02 05:21:00 Rj Rosenthal [facility] MICROALBUMIN URINE 2022-05-02 05:21:00 Chris Zapata [facility] PROTEIN CREAT RATIO URINE 2022-05-02 05:21:00 Chris Zapata Un iversity of [facility] EXTRA TUBE URINE CULTURE 2022-05-02 05:21:00 Hillary Antoine [facility] MICROALBUMIN URINE 2022-05-02 05:21:00 Benny Chris [facility] URINALYSIS 2022-05-02 05:21:00 Rj Rosenthal [facility] PROTEIN CREAT RATIO URINE 2022-05-02 05:21:00 Chris Zapata Un iversity of [facility] EXTRA TUBE URINE CULTURE 2022-05-02 05:21:00 Hillary Antoine Uni [facility] POCT GLUCOSE (AUTOMATED) 2022-05-02 05:10:00 Rj Rosenthal iversity of [facility] POCT GLUCOSE (AUTOMATED) 2022-05-02 05:10:00 Rj Rosenthal iversity of [facility] POCT GLUCOSE (AUTOMATED) 2022-05-02 05:10:00 Rj Rosenthal [facility] [place] AC PANEL 20 + LACTIC ACID 2022-05-02 03:19:00 Olena Gilbert [facility] AC PANEL 20 + LACTIC ACID 2022-05-02 03:19:00 Olena Gilbert [facility] AC PANEL 20 + LACTIC ACID 2022-05-02 03:19:00 Olena Gilbert [facility] FERRITIN SERUM 2022-05-01 18:35:00 Ofelia [facility] TROPONIN I 2022-05-01 18:35:00 Rj Rosenthal [facility] COMP. METABOLIC PANEL 2022-05-01 18:35:00 Rj Rosenthal [facility] ([id number] [place] [address] IRON PANEL 2022-05-01 18:35:00 Ofelia [facility] CBC WITH DIFF 2022-05-01 18:35:00 Rj Rosenthal [facility] GLYCOSYLATED HEMOGLOBIN 2022-05-01 18:35:00 Ofelia [facility] ([facility]) [facility] N-TERMINAL PRO-BNP 2022-05-01 18:35:00 Rj Rosenthal [facility] COMP. METABOLIC PANEL 2022-05-01 18:35:00 Rj Rosenthal [facility] ([id number]) [facility] TROPONIN I 2022-05-01 18:35:00 Rj Rosenthal [facility] N-TERMINAL PRO-BNP 2022-05-01 18:35:00 Rj Rosenthal [facility] CBC WITH DIFF 2022-05-01 18:35:00 Rj Rosenthal [facility] GLYCOSYLATED HEMOGLOBIN 2022-05-01 18:35:00 Ofelia [facility] ([facility]) [facility] FERRITIN SERUM 2022-05-01 18:35:00 Ofelia [facility] IRON PANEL 2022-05-01 18:35:00 Ofelia [facility] FERRITIN SERUM 2022-05-01 18:35:00 [facility] TROPONIN I 2022-05-01 18:35:00 Rj Rosenthal [facility] COMP. METABOLIC PANEL 2022-05-01 18:35:00 Rj Rosenthal [facility] ([id number]) [facility] IRON PANEL 2022-05-01 18:35:00 [facility] CBC WITH DIFF 2022-05-01 18:35:00 Rj Rosenthal [facility] GLYCOSYLATED HEMOGLOBIN 2022-05-01 18:35:00 [facility] (A1C) [facility] N-TERMINAL PRO-BNP 2022-05-01 18:35:00 Rj Rosenthal [facility] LACTIC ACID WHOLE BLOOD 2022-05-01 18:34:00 Rj Rosenthal Uni [facility] LACTIC ACID WHOLE BLOOD 2022-05-01 18:34:00 Rj Rosenthal Uni [facility] LACTIC ACID WHOLE BLOOD 2022-05-01 18:34:00 Rj Rosenthal [facility] CHEST 1 VW 2022-05-01 18:17:19 Rj Rosenthal [facility] XR CHEST 1 VW 2022-05-01 18:17:19 Rj Rosenthal [facility] XR CHEST 1 VW 2022-05-01 18:17:19 Rj Rosenthal [facility] HB ECG ROUTINE & RHYTHM 2022-05-01 18:09:00 [facility] ROUTINE & RHYTHM 2022-05-01 18:09:00 Rj Rosenthal Uni versity [facility] HB ECG ROUTINE & RHYTHM 2022-05-01 18:09:00 [facility] CONSENT/REFUSAL FOR 2022-05-01 17:24:37 Doctor Unassigned, No [facility] [place] [facility] Medical Branch CONSENT/REFUSAL FOR 2022-05-01 17:24:37 Doctor Unassigned, No [facility] [place] [facility] Name Medical Branch CONSENT/REFUSAL FOR 2022-05-01 17:24:37 Doctor Unassigned, No [facility] HOSPITAL ADMISSION 2022-05-01 06:01:00 Doctor Unassigned, No Uni [facility] HOSPITAL ADMISSION 2022-05-01 06:01:00 Doctor Unassigned, No Uni versity of [facility] HOSPITAL ADMISSION 2022-05-01 06:01:00 Doctor Unassigned, No Uni [facility] REFERRAL- 2021-11-21 05:01:00 Doctor Unassigned, No [facility] REQUEST/RESPONSE [facility] PROTEIN URINE, URINALYSIS 2021-05-18 18:05:00 [facility] URIC ACID 2021-05-18 18:01:00 Lisha [facility] MAGNESIUM 2021-05-18 18:01:00 Lisha [facility] RENAL PANEL 2021-05-18 18:01:00 Lisha [facility] CBC WITH DIFF 2021-05-18 18:01:00 Lisha, [facility] URINALYSIS 2021-05-18 18:01:00 Lisha [facility] ASSIGNMENT OF BENEFITS 2021-05-18 17:26:33 Doctor Unassigned, No [facility] POCT GLUCOSE (AUTOMATED) 2021-05-04 13:30:00 Aby Lennon [facility] BASIC METABOLIC PANEL 2021-05-04 11:17:00 Jeovany Palomo [facility] (NA, K, CL, CO2, GLUCOSE, Medica l Branch BUN, CREATININE, CA) POCT GLUCOSE (AUTOMATED) 2021-05-04 06:20:00 Aby Lennon [facility] POCT GLUCOSE (AUTOMATED) 2021-05-04 01:16:[address] [facility] POCT GLUCOSE (AUTOMATED) 2021-05-03 22:14:00 Aby Lennon [facility] POCT GLUCOSE (AUTOMATED) 2021-05-03 17:48:00 Saji, Aby [facility] POCT GLUCOSE (AUTOMATED) 2021-05-03 13:42:00 Aby Lennon [facility] BASIC METABOLIC PANEL 2021-05-03 11:13:00 Jeovany Palomo [facility] (NA, K, CL, CO2, GLUCOSE, Medica l Branch BUN, CREATININE, CA) CBC WITH DIFF 2021-05-03 11:13:00 Jeovany Palomo [facility] N-TERMINAL PRO-BNP 2021-05-03 11:13:00 Jeovany Palomo [facility] POCT GLUCOSE (AUTOMATED) 2021-05-03 10:57:00 Aby Lennon [facility] POCT GLUCOSE (AUTOMATED) 2021-05-03 06:20:00 Aby Lennon [facility] POCT GLUCOSE (AUTOMATED) 2021-05-03 02:31:00 Aby Lennon [facility] POCT GLUCOSE (AUTOMATED) 2021-05-02 22:43:00 Aby Lennon [facility] POCT GLUCOSE (AUTOMATED) 2021-05-02 17:53:00 Aby Lennon [facility] XR CHEST 1 VW 2021-05-02 16:59:05 Adam Neri [facility] POCT GLUCOSE (AUTOMATED) 2021-05-02 13:36:00 Aby Lennon [facility] PHOSPHORUS 2021-05-02 10:23:00 Lisha [facility] MAGNESIUM 2021-05-02 10:23:00 Lisha [facility] FERRITIN SERUM 2021-05-02 10:23:00 Lisha [facility] IRON 2021-05-02 10:23:00 Lisha [facility] TOTAL IRON BINDING 2021-05-02 10:23:00 Lisha [facility] CAPACITY [facility] TROPONIN I 2021-05-02 10:23:00 Stacia Jeovany [facility] THYROID STIMULATING 2021-05-02 10:23:00 Lisha [facility] HORMONE [facility] COMP. METABOLIC PANEL 2021-05-02 10:23:00 Jeovany Palomo [facility] ([id number]) [facility] [place] CBC WITH DIFF 2021-05-02 10:23:00 Jeovany Palomo [facility] N-TERMINAL PRO-BNP 2021-05-02 10:23:00 Jeovany Palomo [facility] POCT GLUCOSE (AUTOMATED) 2021-05-02 08:06:00 Aby Lennon [facility] POCT GLUCOSE (AUTOMATED) 2021-05-02 02:38:00 Aby Lennon [facility] POCT GLUCOSE (AUTOMATED) 2021-05-01 22:14:00 Aby Lennon [facility] INTACT PTH CALCIUM GROUP 2021-05-01 20:00:00 Lisha, [facility] VITAMIN D, 25-OH 2021-05-01 20:00:00 Lisha, [facility] URINALYSIS 2021-05-01 19:11:00 Lisha, [facility] POTASSIUM, URINE RANDOM 2021-05-01 19:11:00 Lisha, [facility] SODIUM, URINE RANDOM 2021-05-01 19:11:00 Lisha [facility] PROTEIN CREAT RATIO URINE 2021-05-01 19:11:00 Yara Husain [facility] US RETROPERITONEAL 2021-05-01 17:53:56 Yara Husain [facility] COMPLETE [facility] POCT GLUCOSE (AUTOMATED) 2021-05-01 17:06:00 Aby Lennon [facility] ACUTE CARE ARTERIAL BLOOD 2021-05-01 16:46:00 LishaYara lovelace [facility] GAS [facility] POCT GLUCOSE (AUTOMATED) 2021-05-01 13:37:00 Aby Lennon [facility] PHOSPHORUS 2021-05-01 11:58:00 Lisha, [facility] CREATINE KINASE 2021-05-01 11:58:00 Lisha, [facility] LIPASE 2021-05-01 11:58:00 Aby Lennon [facility] MAGNESIUM 2021-05-01 11:58:00 Aby Lennon [facility] TROPONIN I 2021-05-01 11:58:00 Julianna Maza [facility] HEPATIC FUNCTION PANEL 2021-05-01 11:58:00 Aby Lennon [facility] ([id number]) (ALB,T.PRO,BILI Medical Branch T,BU/BC,ALT,AST,ALK PHOS) BASIC METABOLIC PANEL 2021-05-01 11:58:00 Aby Lennon [facility] (NA, K, CL, CO2, GLUCOSE, Medica l Branch BUN, CREATININE, CA) CBC WITH DIFF 2021-05-01 11:58:00 Aby Lennon [facility] N-TERMINAL PRO-BNP 2021-05-01 11:58:00 Julianna Maza [facility] POCT GLUCOSE (AUTOMATED) 2021-05-01 02:41:00 Aby Lennon [facility] US ABDOMEN LIMITED 2021-04-30 23:43:00 Aby Lennon [facility] POCT GLUCOSE (AUTOMATED) 2021-04-30 23:07:00 Aby Lennon [facility] GLYCOSYLATED HEMOGLOBIN 2021-04-30 22:02:00 Aby Lennon [facility] (A1C) [facility] TROPONIN I 2021-04-30 21:50:00 Aby Lennon [facility] TRANSTHORACIC ECHO (TTE) 2021-04-30 20:37:00 Aby Lennon [facility] COMPLETE W/ CONTRAST Medical Bra [facility] ABORH CONFIRMATION (LAB 2021-04-30 13:30:00 Jarett [facility] ONLY) Medical Branch COMP. METABOLIC PANEL 2021-04-30 13:12:00 Jarett Remy [facility] ([id number]) Medical Branch LIPID PANEL ([id number])(TOTAL 2021-04-30 13:12:00 Aby Lennon [facility] CHOLESTEROL, [facility] TRIGLYCERIDES, HDL) CRITICAL CARE 2021-04-30 12:46:07 Jarett Remy [facility] XR CHEST 1 VW 2021-04-30 12:19:00 Remy Denson [facility] HB ECG ROUTINE & RHYTHM 2021-04-30 12:07:45 Remy Denson [facility] HB ABO GROUPING 2021-04-30 12:06:00 Remy Denson [facility] LACTIC ACID WHOLE BLOOD 2021-04-30 12:05:00 Remy Denson [facility] BLOOD CULTURE SCREEN 2021-04-30 12:02:00 Remy Denson [facility] ity [facility] LIPASE 2021-04-30 12:01:00 Remy Denson [facility] TROPONIN I 2021-04-30 12:01:00 Remy Denson [facility] CBC WITH DIFF 2021-04-30 12:01:00 Remy Denson [facility] PROTHROMBIN TIME / INR 2021-04-30 12:01:00 Remy Denson [facility] ACTIVATED PARTIAL 2021-04-30 12:01:00 Remy Denson [facility] THRMPLAS [facility] N-TERMINAL PRO-BNP 2021-04-30 12:01:00 [facility] COVID-19 (ID NOW RAPID 2021-04-30 12:01:00 Remy Denson [facility] TESTING) [facility] [place] LAB ONLY COVID 2021-04-30 12:01:00 Remy Denson [facility] CONSENT/REFUSAL FOR 2021-04-30 11:26:07 Doctor Unassigned, No [facility] Name [facility] [place] NOTICE OF PRIVACY 2021-04-30 11:25:36 Doctor Unassigned, No Univ [facility] PRACTICES Name [facility] [place] Encounters Start End Encounter Admission Attending Care Care Encounter Source Date/Time Date/Time Type Type Clinicians Facility Department ID 2022-09-28 2022-09-28 Orders Doctor ANDERSON [id number] Univers 00:00:00 00:00:00 Only Unassigned, DANIELE [id number] ity of [place] [facility] 4.2.7.2.686 [place] as [id number] [address] 2022-09-06 2022-09-06 Outpatient [facility] 08:26:25 08:26:25 [id number] F Alexandre 2022-09-03 2022-09-03 Outpatient [facility] 10:40:57 10:40:57 [id number] F Alexandre 2022-09-01 2022-09-01 Outpatient [facility] Quinn 13:04:32 13:04:32 [id number] F Alexandre 2022-07-22 2022-07-22 Outpatient [facility] [id number] Univers 00:00:00 00:00:00 ity of [facility] 2022-06-22 2022-06-22 Telephone [facility]ly [facility] [id number] Univers 00:00:00 00:00:00 Preston [facility] [id number] ity [facility] [place] [phone] [address] 2022-06-10 2022-06-10 Outpatient [facility] [id number] Univers 00:00:00 00:00:00 ity of [facility] 2022-06-10 2022-06-10 Orders Doctor MONICA [id number] Univers 00:00:00 00:00:00 Only Unassigned, DANIELE [id number] ity of [place] [facility] 4.2.7.2.686 [place] [phone] [address] 2022-06-08 2022-06-08 [facility] [id number] Univers 08:30:00 23:59:00 PRESTON ity of [place] [facility] 2022-06-08 2022-06-08 Orders Doctor MONICA Dalton2.840.114 [id number] Univers 00:00:00 00:00:00 Only Unassigned, DANIELE [id number] ity of [place] [facility] 4.2.7.2.686 [place] [phone] [address] 2022-05-27 2022-05-27 Transition POOL Valerio2.840.114 [id number] Univers 00:00:00 00:00:00 of Care Annabel HUANGY 350.1.13.10 it y of [place] [id number] [facility] [address] Branch 2022-05-01 2022-05-26 [id number] Univers 11:37:00 20:43:00 PRESTON, ity of [facility] 2022-05-01 2022-05-26 [facility] Rj Rosenthal 1.2.840. 114 [id number] Univers 11:37:00 20:43:00 Encounter Antoine Hillaryvickey [place] 350.1.13.10 ity of Nelly Schultz [facility] 4.2.7.2.[address] [facility] [id number] [facility] 094 [place] 2022-05-17 2022-05-17 Surgery JUAN PABLO Teran 1.2.840.114 [id number] Univers 15:45:00 16:45:00 Melly [place] 350.1.13.10 ity of [facility] 4.2.7.2.686 [place] [id number] [facility] 840 Branch 2022-05-01 2022-05-01 Travel 1.2.840.1 [id number] [id number] Univers 00:00:00 00:00:00 [id number] 350.1.13.10 ity of 3[place]104.2.[place]3.352471 084.8 Medica l .8 Branch 2022-04-22 2022-04-22 Outpatient [facility] 09:03:47 09:03:47 F Anderson 2022-03-31 2022-03-31 Outpatient [facility] 10:40:59 10:40:59 F Anderson 2022-02-16 2022-02-16 Outpatient [facility] 10:51:36 10:51:36 F Anderson 2022-02-08 2022-02-08 Outpatient [facility] [id number] Quinn 10:08:40 10:08:40 [id number] F Alexandre 2022-01-12 2022-01-12 Letter MONICA Solorzano 1.2.840.114 [id number] Univers 00:00:00 00:00:00 (Out) Sonia Thompson DANIELE 350.1.13.10 i ty of [facility] 4.2.7.2.686 [place] [id number] [facility] 043 [place] 2022-01-06 2022-01-06 [facility] [id number] Univers 15:00:00 15:00:00 CHAPIS mejias [facility] 2021-11-21 2021-11-21 Orders Doctor MONICA 1.2.840.114 [id number] Univers 00:00:00 00:00:00 Only Unassigned, DANIELE 350.1.13.10 ity of [place] [facility] 4.2.7.2.686 [place] [id number] [facility] 009 [place] 2021-05-27 2021-05-27 [facility] [id number] Univers 00:00:00 00:00:00 Julianna ROJAS 350.1.13.10 ity of [place].2.[place] PROF[place] [id number] Id dical NAL 059 [facility] 2021-05-18 2021-05-18 Ultrasound Technologist Sonographer Jay, Kristian Lab Main [facility] 1.2.8 40.114 [id number] Univers 13:30:00 13:45:00 Visit Rhoda Bray 350.1.13.10 ity of [place] [id number] Id dical NAL 353 [facility] 2021-05-18 2021-05-18 Outpatient [facility] [id number] Univers 13:30:00 13:30:[address] [facility] 2021-05-18 2021-05-18 Orders Doctor ANDERSON 1.2.840.114 [id number] Univers 00:00:00 00:00:00 Only Unassigned, DANIELE 350.1.13.10 ity of [facility] 4.2.7.2.686 Sl[place] [id number] [facility] 009 Branch 2021-04-30 2021-05-04 Hospital Remy Denson [facility] 1.2.840.1 [id number] Univers 05:33:00 12:29:00 Encounter Aby Lennon 350.1.13.10 ity of [place] 4.2.7.2.686 [facility] [id number] [facility] 080 Branch 2021-04-30 2021-05-04 Inpatient X SAJI [facility] GERTRUDIS [id number] Univers 05:33:00 12:29:[address] [facility] Results Test Description Test Time Test Comments Results Result Comments Source LIPID PANEL 2022-09-02 23:37:05 Test Item Value Reference Range Interpretation Comme nts CHOLESTEROL (test code = 2210) 212 MG/DL <200 H TRIGLYCERIDES (test code = 2232) 113 MG/DL <150 HDL CHOLESTEROL (test code = 63 MG/DL >39 2219) CALC LDL CHOL (test code = 2237) 127 MG/DL <100 H NOTE: CALCULATED LDL IS BASED ON PHILIPPE-MENCHACA METHOD WHICHINCLUDES A DJUSTABLE TRIGLYCERIDE:VL DL CHOLESTEROL RATIO.THIS FACT OR VARIES BY MEASURED TRIGLY CERIDE AND NON-HDLCHOLESTE ROL CONCENTRATIONS WITH INCREASED CALCULATED LDL SEENIN HIGHER T RIGLYCERIDE OR LOWER NON-HDL S PECIMENS. FOR MOREINFORMATION , SEE CLIENT ANNOUNCEMENT AT [email or web address] RATIO LDL/HDL (test code = 2.02 RATIO <3.22 2237) COMPREHENSIVE METABOLIC [id number] 23:37:05 Test Item Value Reference Range Interpretation Comments GLUCOSE (test code = 222 MG/DL 70-99 H 2216) BUN (test code = 18 MG/DL 8-2207) CREATININE (test 2.37 MG/DL 0.60-1.30 H code = 2214) eGFR (2020 CKD-EPI) 22 >60 L (test code = 60171) ML/MIN/1.73 CALC BUN/CREAT (test 8 RATIO 6-28 code = 2235) SODIUM (test code = 142 MEQ/L 063-773 6239) POTASSIUM (test code 4.6 MEQ/L 3.5-5.4 = 8) CHLORIDE (test code 95 MEQ/L 95-107 = 2215) CARBON DIOXIDE (test 26 MEQ/L 19-31 code = 2206) CALCIUM (test code = 9.3 MG/DL 8.5-10.5 2208) PROTEIN, TOTAL (test 7.2 G/DL 6.1-8.3 code = 222) ALBUMIN (test code = 4.3 G/DL 3.5-5.2 2200) CALC GLOBULIN (test 2.9 G/DL 1.9-3.7 code = 2240) CALC A/G RATIO (test 1.5 RATIO 1.0-2.6 code = 223) BILIRUBIN, TOTAL 0.3 MG/DL See_Comment [Automated message] (test code = 220) The syste m which generated this result transmitted ref erence range: <=1.2. T he reference range was not used to int erpret this result as normal/abnormal . ALKALINE PHOSPHATASE 171 U/L 40-140 H (test code = 220) AST (test code = 17 U/L 9-40 2217) ALT (test code = 13 U/L 5-40 UNLESS OTH ERWISE 2218) INDICATED, ALL TESTING [facility] [place] [address] LABOR ATORY DIRECTOR: Magalis GREENBERG IVETH NUMBER [id number] CAP ACCREDITATION N O. [id number] HEMOGLOBIN [id number] 10:29:23 Test Item Value Reference Range Interpretation Comments HEMOGLOBIN A1c (test 7.6 % 4.2-5.6 H AMERIC AN DIABETES code = 20069) ASSOCIATION IDELINES FOR HGB A1C: PREDIABETES/INC REASED RISK . . . . . . . 5.7 -6.4% DIAGNOSIS OF DI ABETES . . . . . . . . . >=6 .5% WITH CONFIRMATION OR APPROPRIATE SYMPTOMS NOTE: ASSAY MAY BE AFFECTED BY HEMOGLOBINOPATH IES (SICKLE CELL ANEMIA, S- C DISEASE, OTHERS) OR JAVI FICIALLY LOWERED BY DECR EASED RED CELL SURVIVAL ( HEMOLYTIC ANEMIAS, BLOOD LOSS, ETC.). CONSIDER ALTERN ATE TESTING OR LABORATORY C ONSULTATION. POCT GLUCOSE (AUTOMATED)2022-05-27 01:54:20 Test Item Value Reference Range Interpretation Comments POCT GLU (test code = 4273442844) 103 mg/dL 70-110 Lab Interpretation (test code = Normal 68882-3) [facility] GLU[facility]AUT[facility])2022-05-26 22:41:50 Test Item Value Reference Range Interpretation Comments POCT GLU (test code = 2942688598) 150 mg/dL 70-110 H Lab Interpretation (test code = Abnormal 95216-0) [facility] GLUCOSE (AUTOMATED)2022-05-26 18:54:59 Test Item Value Reference Range Interpretation Comments POCT GLU (test code = 4475386831) 216 mg/dL 70-110 H Lab Interpretation (test code = Abnormal 61709-0) [facility] GLUCOSE (AUTOMATED)2022-05-26 15:29:20 Test Item Value Reference Range Interpretation Comments POCT GLU (test code = 1425811748) 159 mg/dL 70-110 H Lab Interpretation (test code = Abnormal 89162-0) [facility] GLUCOSE (AUTOMATED)2022-05-26 03:10:28 Test Item Value Reference Range Interpretation Comments POCT GLU (test code = 0118500311) 253 mg/dL 70-110 H Lab Interpretation (test code = Abnormal 84524-9) [facility] 23:19:38 Test Item Value Reference Range Interpretation Comments POCT GLU (test code = 5177876235) 139 mg/dL 70-110 H Lab Interpretation (test code = Abnormal 88361-4[facility] 18:08:19 Test Item Value Reference Range Interpretation Comments POCT GLU (test code = 7615911822) 277 mg/dL 70-110 H Lab Interpretation (test code = Abnormal 87811-5) [facility] GLUCOSE (AUTOMATED)2022-05-25 15:20:51 Test Item Value Reference Range Interpretation Comments POCT GLU (test code = 4872592784) 220 mg/dL 70-110 H Lab Interpretation (test code = Abnormal 50509-2) [facility] GLUCOSE (AUTOMATED)2022-05-25 03:14:53 Test Item Value Reference Range Interpretation Comments POCT GLU (test code = 8483828760) 207 mg/dL 70-110 H Lab Interpretation (test code = Abnormal 88510-4) [facility] GLUCOSE (AUTOMATED)2022-05-25 01:42:22 Test Item Value Reference Range Interpretation Comments POCT GLU (test code = 7502575451) 129 mg/dL 70-110 H Lab Interpretation (test code = Abnormal 03936-0) [facility] GLUCOSE (AUTOMATED)2022-05-24 18:07:09 Test Item Value Reference Range Interpretation Comments POCT GLU (test code = 4384666506) 265 mg/dL 70-110 H Lab Interpretation (test code = Abnormal 15054-9) [facility] GLUCOSE (AUTOMATED)2022-05-24 15:25:45 Test Item Value Reference Range Interpretation Comments POCT GLU (test code = 0445184569) 142 mg/dL 70-110 H Lab Interpretation (test code = Abnormal 19010-6) [facility] GLUCOSE (AUTOMATED)2022-05-24 03:04:09 Test Item Value Reference Range Interpretation Comments POCT GLU (test code = 0932320737) 155 mg/dL 70-110 H Lab Interpretation (test code = Abnormal 90516-8) [facility] GLUCOSE (AUTOMATED)2022-05-23 23:36:58 Test Item Value Reference Range Interpretation Comments POCT GLU (test code = 7637048036) 229 mg/dL 70-110 H Lab Interpretation (test code = Abnormal 16004-0) [facility] GLUCOSE (AUTOMATED)2022-05-23 18:12:53 Test Item Value Reference Range Interpretation Comments POCT GLU (test code = 6416297831) 241 mg/dL 70-110 H Lab Interpretation (test code = Abnormal 24482-2) [facility] GLUCOSE (AUTOMATED)2022-05-23 15:13:34 Test Item Value Reference Range Interpretation Comments POCT GLU (test code = 7794298067) 151 mg/dL 70-110 H Lab Interpretation (test code = Abnormal 17440-3) [facility] GLUCOSE (AUTOMATED)2022-05-23 02:41:42 Test Item Value Reference Range Interpretation Comments POCT GLU (test code = 5546666877) 237 mg/dL 70-110 H Lab Interpretation (test code = Abnormal 13501-4) [facility] GLUCOSE (AUTOMATED)2022-05-22 23:22:37 Test Item Value Reference Range Interpretation Comments POCT GLU (test code = 0280971205) 235 mg/dL 70-110 H Lab Interpretation (test code = Abnormal 39731-3) [facility] GLUCOSE (AUTOMATED)2022-05-22 20:36:06 Test Item Value Reference Range Interpretation Comments POCT GLU (test code = 2146862574) 247 mg/dL 70-110 H Lab Interpretation (test code = Abnormal 45241-3) [facility] GLUCOSE (AUTOMATED)2022-05-22 18:32:31 Test Item Value Reference Range Interpretation Comments POCT GLU (test code = [id number]) 263 mg/dL 70-110 H Lab Interpretation (test code = Abnormal 97665-6) [facility] GLUCOSE (AUTOMATED)2022-05-22 15:09:08 Test Item Value Reference Range Interpretation Comments POCT GLU (test code = [id number]) 145 mg/dL 70-110 H Lab Interpretation (test code = Abnormal 27196-9) [facility] GLUCOSE (AUTOMATED)2022-05-22 03:05:05 Test Item Value Reference Range Interpretation Comments POCT GLU (test code = [id number]) 269 mg/dL 70-110 H Lab Interpretation (test code = Abnormal 22415-9) [facility] (AUTOM[facility])2022-05-21 23:27:43 Test Item Value Reference Range Interpretation Comments POCT GLU (test code = 8839037021) 187 mg/dL 70-110 H Lab Interpretation (test code = Abnormal 89545-6) [facility] GLUCOSE (AUTOMATED)2022-05-21 15:03:24 Test Item Value Reference Range Interpretation Comments POCT GLU (test code = 3061775344) 175 mg/dL 70-110 H Lab Interpretation (test code = Abnormal 21134-8) [facility] GLUCOSE (AUTOMATED)2022-05-21 03:48:30 Test Item Value Reference Range Interpretation Comments POCT GLU (test code = 0432935320) 250 mg/dL 70-110 H Lab Interpretation (test code = Abnormal 86066-6) [facility] GLUCOSE (AUTOMATED)2022-05-20 23:10:10 Test Item Value Reference Range Interpretation Comments POCT GLU (test code = 5194333229) 133 mg/dL 70-110 H Lab Interpretation (test code = Abnormal 88400-5) [facility] GLUCOSE (AUTOMATED)2022-05-20 19:22:35 Test Item Value Reference Range Interpretation Comments POCT GLU (test code = 6948721461) 257 mg/dL 70-110 H Lab Interpretation (test code = Abnormal 94688-5) [facility] GLUCOSE (AUTOMATED)2022-05-20 13:52:51 Test Item Value Reference Range Interpretation Comments POCT GLU (test code = 8243089595) 120 mg/dL 70-110 H Lab Interpretation (test code = Abnormal 49089-5) [facility] GLUCOSE (AUTOMATED)2022-05-20 07:58:34 Test Item Value Reference Range Interpretation Comments POCT GLU (test code = 2161918510) 154 mg/dL 70-110 H Lab Interpretation (test code = Abnormal 64150-3) [facility] GLUCOSE (AUTOMATED)2022-05-20 04:46:18 Test Item Value Reference Range Interpretation Comments POCT GLU (test code = 2967065307) 301 mg/dL 70-110 H Lab Interpretation (test code = Abnormal 16573-4) [facility] GLUCOSE (AUTOMATED)2022-05-20 00:32:10 Test Item Value Reference Range Interpretation Comments POCT GLU (test code = 4714629897) 156 mg/dL 70-110 H Lab Interpretation (test code = Abnormal 24263-8) [facility] GLUCOSE (AUTOMATED)2022-05-19 18:05:00 Test Item Value Reference Range Interpretation Comments POCT GLU (test code = 0924988181) 211 mg/dL 70-110 H Lab Interpretation (test code = Abnormal 06760-1) [facility] GLUCOSE (AUTOMATED)2022-05-19 14:45:03 Test Item Value Reference Range Interpretation Comments POCT GLU (test code = 1631355965) 180 mg/dL 70-110 H Lab Interpretation (test code = Abnormal 74996-5) [facility] GLUCOSE (AUTOMATED)2022-05-19 03:38:25 Test Item Value Reference Range Interpretation Comments POCT GLU (test code = 8603183539) 246 mg/dL 70-110 H Lab Interpretation (test code = Abnormal 80577-7) [facility] GLUCOSE (AUTOMATED)2022-05-18 22:27:08 Test Item Value Reference Range Interpretation Comments POCT GLU (test code = 8946621346) 226 mg/dL 70-110 H Lab Interpretation (test code = Abnormal 57165-0) [facility] GLUCOSE (AUTOMATED)2022-05-18 18:04:57 Test Item Value Reference Range Interpretation Comments POCT GLU (test code = 3851651062) 272 mg/dL 70-110 H Lab Interpretation (test code = Abnormal 89643-2) [facility] GLUCOSE (AUTOMATED)2022-05-18 18:04:57 Test Item Value Reference Range Interpretation Comments POCT GLU (test code = 8478138411) 272 mg/dL 70-110 H Lab Interpretation (test code = Abnormal 79417-9) [facility] GLUCOSE (AUTOMATED)2022-05-18 14:52:13 Test Item Value Reference Range Interpretation Comments POCT GLU (test code = 9480744271) 215 mg/dL 70-110 H Lab Interpretation (test code = Abnormal 41958-1) [facility] GLUCOSE (AUTOMATED)2022-05-18 14:52:13 Test Item Value Reference Range Interpretation Comments POCT GLU (test code = 2939509666) 215 mg/dL 70-110 H Lab Interpretation (test code = Abnormal 37086-4) [facility] GLUCOSE (AUTOMATED)2022-05-18 03:54:19 Test Item Value Reference Range Interpretation Comments POCT GLU (test code = 7833432820) 262 mg/dL 70-110 H Lab Interpretation (test code = Abnormal 26062-4) [facility] GLUCOSE (AUTOMATED)2022-05-18 03:54:19 Test Item Value Reference Range Interpretation Comments POCT GLU (test code = 8347877159) 262 mg/dL 70-110 H Lab Interpretation (test code = Abnormal 87146-7) [facility] GLUCOSE (AUTOMATED)2022-05-17 23:10:52 Test Item Value Reference Range Interpretation Comments POCT GLU (test code = 6702483389) 153 mg/dL 70-110 H Lab Interpretation (test code = Abnormal 56745-3) [facility] GLUCOSE (AUTOMATED)2022-05-17 23:10:52 Test Item Value Reference Range Interpretation Comments POCT GLU (test code = 5522755224) 153 mg/dL 70-110 H Lab Interpretation (test code = Abnormal 18276-3) [facility] GLUCOSE (AUTOMATED)2022-05-17 18:17:46 Test Item Value Reference Range Interpretation Comments POCT GLU (test code = 9075895107) 109 mg/dL 70-110 Lab Interpretation (test code = Normal 22668-5) [facility] GLUCOSE (AUTOMATED)2022-05-17 18:17:46 Test Item Value Reference Range Interpretation Comments POCT GLU (test code = 4112011005) 109 mg/dL 70-110 Lab Interpretation (test code = Normal 85575-4) [facility] GLUCOSE (AUTOMATED)2022-05-17 15:03:31 Test Item Value Reference Range Interpretation Comments POCT GLU (test code = 9386139292) 120 mg/dL 70-110 H Lab Interpretation (test code = Abnormal 56991-7) [facility] GLUCOSE (AUTOMATED)2022-05-17 15:03:31 Test Item Value Reference Range Interpretation Comments POCT GLU (test code = 2092115091) 120 mg/dL 70-110 H Lab Interpretation (test code = Abnormal 88606-8) [facility] GLUCOSE (AUTOMATED)2022-05-17 02:16:18 Test Item Value Reference Range Interpretation Comments POCT GLU (test code = 2934924938) 247 mg/dL 70-110 H Lab Interpretation (test code = Abnormal 06412-9) [facility] GLUCOSE (AUTOMATED)2022-05-17 02:16:18 Test Item Value Reference Range Interpretation Comments POCT GLU (test code = 8872878957) 247 mg/dL 70-110 H Lab Interpretation (test code = Abnormal 23010-0) [facility] GLUCOSE (AUTOMATED)2022-05-16 23:47:19 Test Item Value Reference Range Interpretation Comments POCT GLU (test code = 4246425994) 255 mg/dL 70-110 H Lab Interpretation (test code = Abnormal 09260-1) [facility] GLUCOSE (AUTOMATED)2022-05-16 23:47:19 Test Item Value Reference Range Interpretation Comments POCT GLU (test code = 6051251283) 255 mg/dL 70-110 H Lab Interpretation (test code = Abnormal 76989-9) [facility] GLUCOSE (AUTOMATED)2022-05-16 18:51:57 Test Item Value Reference Range Interpretation Comments POCT GLU (test code = 4145686420) 222 mg/dL 70-110 H Lab Interpretation (test code = Abnormal 59438-8) [facility] GLUCOSE (AUTOMATED)2022-05-16 18:51:57 Test Item Value Reference Range Interpretation Comments POCT GLU (test code = 6576215961) 222 mg/dL 70-110 H Lab Interpretation (test code = Abnormal 36069-5) [facility] GLUCOSE (AUTOMATED)2022-05-16 15:03:18 Test Item Value Reference Range Interpretation Comments POCT GLU (test code = 6589861172) 182 mg/dL 70-110 H Lab Interpretation (test code = Abnormal 07699-9) [facility] GLUCOSE (AUTOMATED)2022-05-16 15:03:18 Test Item Value Reference Range Interpretation Comments POCT GLU (test code = 5213816370) 182 mg/dL 70-110 H Lab Interpretation (test code = Abnormal 42611-7) [facility] GLUCOSE (AUTOMATED)2022-05-16 15:03:18 Test Item Value Reference Range Interpretation Comments POCT GLU (test code = 9546717979) 182 mg/dL 70-110 H Lab Interpretation (test code = Abnormal 95445-5) [facility] Test Item Value Reference Range Interpretation Comments PHOSPHORUS (test code = 1793777774) 3.1 mg/dL 2.5-5.0 Lab Interpretation (test code = Normal 92686-2) [facility]:21 Test Item Value Reference Range Interpretation Comments MAGNESIUM (test code = 8131400686) 2.1 mg/dL 1.7-2.4 Lab Interpretation (test code = Normal 57050-0) [facility]NA, K, CL, CO2, GLUCOSE, BUN, CREATININE, CA)2022-05-16 13:59:21 Test Item Value Reference Range Interpretation Comments NA (test code = 126 mmol/L 135-145 L 9482317256) K (test code = 4.1 mmol/L 3.5-5.0 6943439523) CL (test code = 94 mmol/L 98-108 L 7866620486) CO2 TOTAL (test code = 24 mmol/L 23-31 7187475932) AGAP (test code = 8 2-16 2871638201) BUN (test code = 27 mg/dL 7-23 H 0136146786) GLUCOSE (test code = 234 mg/dL 70-110 H 0754774481) CREATININE (test code = 3.68 mg/dL 0.50-1.04 H 8226876424) CALCIUM (test code = 8.4 mg/dL 8.6-10.6 L 4292939424) eGFR (test code = 12.5 mL/min/1.73m2 3133066315) INDIRA (test code = INDIRA) Association of [...] tests). Lab Interpretation Abnormal (test code = 64671-4) [facility]:21 Test Item Value Reference Range Interpretation Comments PHOSPHORUS (test code = 2475047203) 3.1 mg/dL 2.5-5.0 Lab Interpretation (test code = Normal 68950-6) [facility] 13:59:21 Test Item Value Reference Range Interpretation Comments MAGNESIUM (test code = 2368743371) 2.1 mg/dL 1.7-2.4 Lab Interpretation (test code = Normal 06818-3) [facility] (NA, K, CL, CO2, GLUCOSE, BUN, CREATININE, CA)2022-05-16 13:59:21 Test Item Value Reference Range Interpretation Comments NA (test code = 126 mmol/L 135-145 L 0117392315) K (test code = 4.1 mmol/L 3.5-5.0 1735208313) CL (test code = 94 mmol/L 98-108 L 9719325881) CO2 TOTAL (test code = 24 mmol/L 23-31 6755147367) AGAP (test code = 2-16 5466899187) BUN (test code = 27 mg/dL 7-23 H 0731191378) GLUCOSE (test code = 234 mg/dL 70-110 H 5020037085) CREATININE (test code = 3.68 mg/dL 0.50-1.04 H 0652725396) CALCIUM (test code = 8.4 mg/dL 8.6-10.6 L 6210909251) eGFR (test code = mL/min/1.73m2 8560225603) INDIRA (test code = INDIRA) Association of [...] tests). Lab Interpretation Abnormal (test code = 89783-3) [facility] 13:59:21 Test Item Value Reference Range Interpretation Comments PHOSPHORUS (test code = 4131637672) 3.1 mg/dL 2.5-5.0 Lab Interpretation (test code = Normal 73919-0) [facility] 13:59:21 Test Item Value Reference Range Interpretation Comments MAGNESIUM (test code = 0893302811) 2.1 mg/dL 1.7-2.4 Lab Interpretation (test code = Normal 96343-8) [facility] (NA, K, CL, CO2, GLUCOSE, BUN, CREATININE, CA)2022-05-16 13:59:21 Test Item Value Reference Range Interpretation Comments NA (test code = 126 mmol/L 135-145 L 6771003143) K (test code = 4.1 mmol/L 3.5-5.0 8405127141) CL (test code = 94 mmol/L 98-108 L 5611756041) CO2 TOTAL (test code = 24 mmol/L 23-31 8744343084) AGAP (test code = 2-16 1055176091) BUN (test code = 27 mg/dL 7-23 H 5177567272) GLUCOSE (test code = 234 mg/dL 70-110 H 3146450133) CREATININE (test code = 3.68 mg/dL 0.50-1.04 H 9206026509) CALCIUM (test code = 8.4 mg/dL 8.6-10.6 L 2431583797) eGFR (test code = mL/min/1.73m2 9210592902) INDIRA (test code = INDIRA) Association of [...] tests). Lab Interpretation Abnormal (test code = 51407-5) [facility] GLUCOSE (AUTOMATED)2022-05-16 03:04:46 Test Item Value Reference Range Interpretation Comments POCT GLU (test code = 2965165416) 215 mg/dL 70-110 H Lab Interpretation (test code = Abnormal 57697-0) [facility] GLUCOSE (AUTOMATED)2022-05-16 03:04:46 Test Item Value Reference Range Interpretation Comments POCT GLU (test code = 9911578914) 215 mg/dL 70-110 H Lab Interpretation (test code = Abnormal 19885-3) [facility] GLUCOSE (AUTOMATED)2022-05-15 23:14:46 Test Item Value Reference Range Interpretation Comments POCT GLU (test code = 8760686705) 203 mg/dL 70-110 H Lab Interpretation (test code = Abnormal 12829-8) [facility] GLUCOSE (AUTOMATED)2022-05-15 23:14:46 Test Item Value Reference Range Interpretation Comments POCT GLU (test code = 2914710895) 203 mg/dL 70-110 H Lab Interpretation (test code = Abnormal 86716-1) [facility] GLUCOSE (AUTOMATED)2022-05-15 18:59:52 Test Item Value Reference Range Interpretation Comments POCT GLU (test code = 1534263717) 282 mg/dL 70-110 H Lab Interpretation (test code = Abnormal 36982-9) [facility] GLUCOSE (AUTOMATED)2022-05-15 18:59:52 Test Item Value Reference Range Interpretation Comments POCT GLU (test code = 9597438578) 282 mg/dL 70-110 H Lab Interpretation (test code = Abnormal 34295-3) [facility] GLUCOSE (AUTOMATED)2022-05-15 14:45:41 Test Item Value Reference Range Interpretation Comments POCT GLU (test code = 7324209768) 175 mg/dL 70-110 H Lab Interpretation (test code = Abnormal 61943-7) [facility] GLUCOSE (AUTOMATED)2022-05-15 14:45:41 Test Item Value Reference Range Interpretation Comments POCT GLU (test code = 8571534315) 175 mg/dL 70-110 H Lab Interpretation (test code = Abnormal 87324-0) [facility] GLUCOSE (AUTOMATED)2022-05-15 02:09:45 Test Item Value Reference Range Interpretation Comments POCT GLU (test code = 7885369908) 209 mg/dL 70-110 H Lab Interpretation (test code = Abnormal 21539-6) [facility] GLUCOSE (AUTOMATED)2022-05-15 02:09:45 Test Item Value Reference Range Interpretation Comments POCT GLU (test code = 7351173577) 209 mg/dL 70-110 H Lab Interpretation (test code = Abnormal 42293-6) [facility] GLUCOSE (AUTOMATED)2022-05-14 22:22:10 Test Item Value Reference Range Interpretation Comments POCT GLU (test code = 7347342859) 118 mg/dL 70-110 H Lab Interpretation (test code = Abnormal 23036-8) [facility] GLUCOSE (AUTOMATED)2022-05-14 22:22:10 Test Item Value Reference Range Interpretation Comments POCT GLU (test code = 2471577924) 118 mg/dL 70-110 H Lab Interpretation (test code = Abnormal 26282-1) [facility] / [id number] 19:05:22 Test Item Value Reference Range Interpretation Comments PROTIME PATIENT (test 11.9 See_Comment [Auto mated message] code = 5964-2) The system [employer] generated this result transmitted ref erence range: 10.1 - 1 2.6 Seconds. The re ference range was not u sed to interpret this result as normal/abnor mal. INR (test code = 6301-6) 1.1 Nor mal INR <1.1; Warfarin Therap eutic range 2.0 to 3. 0 or 2.5 to 3.5, dep ending upon the indica tions. Lab Interpretation (test Normal code = 77130-7) [facility] / [id number] 19:05:22 Test Item Value Reference Range Interpretation Comments PROTIME PATIENT (test See_Comment [Auto mated message] code = 5964-2) The system [employer] generated this result transmitted ref erence range: 10.1 - 1 2.6 Seconds. The re ference range was not u sed to interpret this result as normal/abnor mal. INR (test code = 6301-6) Nor mal INR <1.1; Warfarin Therap eutic range 2.0 to 3. 0 or 2.5 to 3.5, dep ending upon the indica tions. Lab Interpretation (test Normal code = 21449-6) [facility] / [id number] 19:05:22 Test Item Value Reference Range Interpretation Comments PROTIME PATIENT (test See_Comment [Auto mated message] code = 5964-2) The system wh ich generated this result transmitted ref erence range: 10.1 - 1 2.6 Seconds. The re ference range was not u sed to interpret this result as normal/abnor mal. INR (test code = 6301-6) Nor mal INR <1.1; Warfarin Therap eutic range 2.0 to 3. 0 or 2.5 to 3.5, dep ending upon the indica tions. Lab Interpretation (test Normal code = 65030-5) [facility] GLUCOSE (AUTOMATED)2022-05-14 18:03:48 Test Item Value Reference Range Interpretation Comments POCT GLU (test code = 9108259544) 102 mg/dL 70-110 Lab Interpretation (test code = Normal 74051-9) [facility] GLUCOSE (AUTOMATED)2022-05-14 18:03:48 Test Item Value Reference Range Interpretation Comments POCT GLU (test code = 8819547188) 102 mg/dL 70-110 Lab Interpretation (test code = Normal 40906-3) [facility] GLUCOSE (AUTOMATED)2022-05-14 15:41:33 Test Item Value Reference Range Interpretation Comments POCT GLU (test code = 3229078967) 139 mg/dL 70-110 H Lab Interpretation (test code = Abnormal 29730-1) [facility] GLUCOSE (AUTOMATED)2022-05-14 15:41:33 Test Item Value Reference Range Interpretation Comments POCT GLU (test code = 4029598904) 139 mg/dL 70-110 H Lab Interpretation (test code = Abnormal 84057-8) [facility] WITH [id number] 13:05:08 Test Item Value Reference Range Interpretation Comments WBC (test code = 6.69 See_Comment [Automated 5790-2) message] The sy stem which generated this result transmitted reference range : 4.30 - 11.10 10*3/?L. The reference range was not used to interpret this result as normal/abnormal . RBC (test code = 3.64 See_Comment L [Automated 258-8) message] The sy stem which generated this result transmitted reference range : 3.93 - 5.25 10*6/?L. The reference range was not used to interpret this result as normal/abnormal . HGB (test code = 10.9 g/dL 11.6-15.0 L 718-7) HCT (test code = 33.8 % 35.7-45.2 L 4544-3) MCV (test code = 92.9 fL 80.6-95.5 787-2) MCH (test code = 29.9 pg 25.9-32.8 785-6) MCHC (test code = 32.2 g/dL 31.6-35.1 786-4) RDW-SD (test code = 55.5 fL 39.0-49.9 H 78605-1) RDW-CV (test code = 16.2 % 12.0-15.5 H 788-0) PLT (test code = 195 See_Comment [Automated 777-3) message] The sy stem which generated this result transmitted reference range : 166 - 358 10*3/ ?L. The reference r lucille was not used to interpret this result as normal/abnormal . MPV (test code = 11.5 fL 9.5-12.9 41718-4) IPF % (test code = 3.8 % 1.3-7.7 Platelet count 3362101757) measured by fluorescence method. NRBC/100 WBC (test 0.0 See_Comment [Automat ed code = 0043211973) message] The system which generated this result transmitted reference range : 0.0 - 10.0 /100 WBCs. The refer ence range was not u sed to interpret th is result as normal/abnormal . NRBC x10^3 (test code See_Comment [Auto mated = 9415340173) message] The s ystem which generated this result transmitted reference range : 10*3/?L. The reference range was not used to interpret this result as normal/abnormal . GRAN MAT (NEUT) % 59.0 % (test code = 770-8) IMM GRAN % (test code 0.30 % = 6294220006) LYMPH % (test code = 22.6 % 736-9) MONO % (test code = 12.1 % 5905-5) EOS % (test code = 5.4 % 713-8) BASO % (test code = 0.6 % 706-2) GRAN MAT x10^3(ANC) 3.95 10*3/uL 1.88-7.09 (test code = 9217920693) IMM GRAN x10^3 (test 0.00-0.06 code = 0428956909) LYMPH x10^3 (test 1.51 10*3/uL 1.32-3.29 code = 731-0) MONO x10^3 (test code 0.81 10*3/uL 0.33-0.92 = 742-7) EOS x10^3 (test code 0.36 10*3/uL 0.03-0.39 = 711-2) BASO x10^3 (test code 0.04 10*3/uL 0.01-0.07 = 704-7) BASO STIPPLING (test Present A code = 703-9) JOANNE CELLS (test code 2+ See_Comment A [Auto mated = 5290-9) message] The sy stem which generated this result transmitted reference range : (none). The reference range was not used to interpret this result as normal/abnormal . SCHISTOCYTES (test 1+ A code = 800-3) SIDEROTIC GRAN (test Suggestive of A code = 7795-8) Lab Interpretation Abnormal (test code = 80843-7) [facility] WITH [id number] 13:05:08 Test Item Value Reference Range Interpretation Comments WBC (test code = See_Comment [Automated 4290-2) message] The sy stem which generated this result transmitted reference range : 4.30 - 11.10 10*3/?L. The reference range was not used to interpret this result as normal/abnormal . RBC (test code = See_Comment L [Automated 289-8) message] The sy stem which generated this result transmitted reference range : 3.93 - 5.25 10*6/?L. The reference range was not used to interpret this result as normal/abnormal . HGB (test code = 10.9 g/dL 11.6-15.0 L 718-7) HCT (test code = 33.8 % 35.7-45.2 L 4544-3) MCV (test code = 92.9 fL 80.6-95.5 787-2) MCH (test code = 29.9 pg 25.9-32.8 785-6) MCHC (test code = 32.2 g/dL 31.6-35.1 786-4) RDW-SD (test code = 55.5 fL 39.0-49.9 H 44322-7) RDW-CV (test code = 16.2 % 12.0-15.5 H 788-0) PLT (test code = See_Comment [Automated 777-3) message] The sy stem which generated this result transmitted reference range : 166 - 358 10*3/ ?L. The reference r lucille was not used to interpret this result as normal/abnormal . MPV (test code = 11.5 fL 9.5-12.9 11358-2) IPF % (test code = 3.8 % 1.3-7.7 Platelet count 2218538398) measured by fluorescence method. NRBC/100 WBC (test See_Comment [Automat ed code = 5688500153) message] The system which generated this result transmitted reference range : 0.0 - 10.0 /100 WBCs. The refer ence range was not u sed to interpret th is result as normal/abnormal . NRBC x10^3 (test code See_Comment [Auto mated = 6610193279) message] The s ystem which generated this result transmitted reference range : 10*3/?L. The reference range was not used to interpret this result as normal/abnormal . GRAN MAT (NEUT) % 59.0 % (test code = 770-8) IMM GRAN % (test code 0.30 % = 0073097988) LYMPH % (test code = 22.6 % 736-9) MONO % (test code = 12.1 % 5905-5) EOS % (test code = 5.4 % 713-8) BASO % (test code = 0.6 % 706-2) GRAN MAT x10^3(ANC) 3.95 10*3/uL 1.88-7.09 (test code = 5790921406) IMM GRAN x10^3 (test 0.00-0.06 code = 7699412939) LYMPH x10^3 (test 1.51 10*3/uL 1.32-3.29 code = 731-0) MONO x10^3 (test code 0.81 10*3/uL 0.33-0.92 = 742-7) EOS x10^3 (test code 0.36 10*3/uL 0.03-0.39 = 711-2) BASO x10^3 (test code 0.04 10*3/uL 0.01-0.07 = 704-7) BASO STIPPLING (test Present A code = 703-9) JOANNE CELLS (test code 2+ See_Comment A [Auto mated = 2890-9) message] The sy stem which generated this result transmitted reference range : (none). The reference range was not used to interpret this result as normal/abnormal . SCHISTOCYTES (test 1+ A code = 800-3) SIDEROTIC GRAN (test Suggestive of A code = 7795-8) Lab Interpretation Abnormal (test code = 82116-7) [facility] WITH [id number] 13:05:08 Test Item Value Reference Range Interpretation Comments [...] as normal/abnormal . HGB (test code = 10.9 g/dL 11.6-15.0 L 718-7) HCT (test code = 33.8 % 35.7-45.2 L 4544-3) MCV (test code = 92.9 fL 80.6-95.5 787-2) MCH (test code = 29.9 pg 25.9-32.8 785-6) MCHC (test code = 32.2 g/dL 31.6-35.1 786-4) RDW-SD (test code = 55.5 fL 39.0-49.9 H 74410-3) RDW-CV (test code = 16.2 % 12.0-15.5 H 788-0) PLT (test code = See_Comment [Automated 777-3) message] The sy stem which generated this result transmitted reference range : 166 - 358 10*3/ ?L. The reference r lucille was not used to interpret this result as normal/abnormal . MPV (test code = 11.5 fL 9.5-12.9 72235-3) IPF % (test code = 3.8 % 1.3-7.7 Platelet count 9210975367) measured by fluorescence method. NRBC/100 WBC (test See_Comment [Automat ed code = 7559197683) message] The system which generated this result transmitted reference range : 0.0 - 10.0 /100 WBCs. The refer ence range was not u sed to interpret th is result as normal/abnormal . NRBC x10^3 (test code See_Comment [Auto mated = 5605755520) message] The s ystem which generated this result transmitted reference range : 10*3/?L. The reference range was not used to interpret this result as normal/abnormal . GRAN MAT (NEUT) % 59.0 % (test code = 770-8) IMM GRAN % (test code 0.30 % = 0826204620) LYMPH % (test code = 22.6 % 736-9) MONO % (test code = 12.1 % 5905-5) EOS % (test code = 5.4 % 713-8) BASO % (test code = 0.6 % 706-2) GRAN MAT x10^3(ANC) 3.95 10*3/uL 1.88-7.09 (test code = 4623706689) IMM GRAN x10^3 (test 0.00-0.06 code = 8379613706) LYMPH x10^3 (test 1.51 10*3/uL 1.32-3.29 code = 731-0) MONO x10^3 (test code 0.81 10*3/uL 0.33-0.92 = 742-7) EOS x10^3 (test code 0.36 10*3/uL 0.03-0.39 = 711-2) BASO x10^3 (test code 0.04 10*3/uL 0.01-0.07 = 704-7) BASO STIPPLING (test Present A code = 703-9) JOANNE CELLS (test code 2+ See_Comment A [Auto mated = 2708-9) message] The sy stem which generated this result transmitted reference range : (none). The reference range was not used to interpret this result as normal/abnormal . SCHISTOCYTES (test 1+ A code = 800-3) SIDEROTIC GRAN (test Suggestive of A code = 7795-8) Lab Interpretation Abnormal (test code = 40218-7) [facility]:02 Test Item Value Reference Range Interpretation Comments PHOSPHORUS (test code = 1123602754) 3.3 mg/dL 2.5-5.0 Lab Interpretation (test code = Normal 60246-6) [facility] Test Item Value Reference Range Interpretation Comments MAGNESIUM (test code = 9309464776) 2.3 mg/dL 1.7-2.4 Lab Interpretation (test code = Normal 11260-5) [facility] (NA, K, CL, CO2, GLUCOSE, BUN, CREATININE, CA)2022-05-14 12:42:02 Test Item Value Reference Range Interpretation Comments NA (test code = 128 mmol/L 135-145 L 6748772081) K (test code = 5.1 mmol/L 3.5-5.0 H Slight 5843929474) hemolysis CL (test code = 97 mmol/L 98-108 L 5982656762) CO2 TOTAL (test code 26 mmol/L 23-31 = 8162976409) AGAP (test code = 5 2-16 7097974063) BUN (test code = 28 mg/dL 7-23 H Slight 5530659232) hemolysis GLUCOSE (test code = 166 mg/dL 70-110 H 6684825373) CREATININE (test code 3.51 mg/dL 0.50-1.04 H = 3103640218) CALCIUM (test code = 8.5 mg/dL 8.6-10.6 L 6229076209) eGFR (test code = 13.2 mL/min/1.73m2 8079059995) INDIRA (test code = INDIRA) Association of Glomerular Filtration Rate (GFR) and Staging of Kidney Disease* + -----+ --------+ +| GFR (mL/min/1.73 m2) ?| With Kidney Damage ?| ?Without Kidney Damage+ +------- +---- --+| ?>90 ?| ?Stage one ?| ? Normal ?+ ------+ ---------+--------- +| ?60-89 ?| ?Stage two ?| ? Decreased GFR ? + -----+ --------+ +| ?30-59 ?| ?Stage three ?| ? Stage three ? + -----+ --------+ +| ?15-29 ?| ?Stage four ? | ? Stage four ?+ ------+ ---------+--------- +| ?<15 (or dialysis) ? ?| ?Stage five ? | ? Stage five ?+ ------+ ---------+--------- + *Each stage assumes the associated GFR level [...] tests). Lab Interpretation Abnormal (test code = 49976-1) [facility] 12:[facility] Test Item Value Reference Range Interpretation Comments PHOSPHORUS (test code = 3852456054) 3.3 mg/dL 2.5-5.0 Lab Interpretation (test code = Normal 59288-2) [facility] 12[facility]42:02 Test Item Value Reference Range Interpretation Comments MAGNESIUM (test code = 7521592181) 2.3 mg/dL 1.7-2.4 Lab Interpretation (test code = Normal 05841-1) [facility] (NA, K, CL, CO2, GLUCOSE, BUN, CREATININE, CA)2022-05-14 12:42:02 Test Item Value Reference Range Interpretation Comments NA (test code = 128 mmol/L 135-145 L 8265330703) K (test code = 5.1 mmol/L 3.5-5.0 H Slight 3136319234) hemolysis CL (test code = 97 mmol/L 98-108 L 0488386109) CO2 TOTAL (test code 26 mmol/L 23-31 = 6082990501) AGAP (test code = 2-16 4754395139) BUN (test code = 28 mg/dL 7-23 H Slight 9298223044) hemolysis GLUCOSE (test code = 166 mg/dL 70-110 H 4508144497) CREATININE (test code 3.51 mg/dL 0.50-1.04 H = 1046919312) CALCIUM (test code = 8.5 mg/dL 8.6-10.6 L 8701485096) eGFR (test code = mL/min/1.73m2 8536603082) INDIRA (test code = INDIRA) Association of Glomerular Filtration Rate (GFR) and Staging of Kidney Disease* + -----+ --------+ +| GFR (mL/min/1.73 m2) ?| With Kidney Damage ?| ?Without Kidney Damage+ +------- +---- --+| ?>90 ?| ?Stage one ?| ? Normal ?+ ------+ ---------+--------- +| ?60-89 ?| ?Stage two ?| ? Decreased GFR ? + -----+ --------+ +| ?30-59 ?| ?Stage three ?| ? Stage three ? + -----+ --------+ +| ?15-29 ?| ?Stage four ? | ? Stage four ?+ ------+ ---------+--------- +| ?<15 (or dialysis) ? ?| ?Stage five ? | ? Stage five ?+ ------+ ---------+--------- + *Each stage assumes the associated GFR level [...] tests). Lab Interpretation Abnormal (test code = 07862-4) [facility] GLUCOSE (AUTOMATED)2022-05-14 03:20:19 Test Item Value Reference Range Interpretation Comments POCT GLU (test code = 3640365170) 259 mg/dL 70-110 H Lab Interpretation (test code = Abnormal 73124-8) [facility] GLUCOSE (AUTOMATED)2022-05-14 03:20:19 Test Item Value Reference Range Interpretation Comments POCT GLU (test code = 8780940647) 259 mg/dL 70-110 H Lab Interpretation (test code = Abnormal 89696-0) [facility] GLUCOSE (AUTOMATED)2022-05-13 23:25:03 Test Item Value Reference Range Interpretation Comments POCT GLU (test code = 3320513446) 226 mg/dL 70-110 H Lab Interpretation (test code = Abnormal 13390-1) [facility] GLUCOSE (AUTOMATED)2022-05-13 23:25:03 Test Item Value Reference Range Interpretation Comments POCT GLU (test code = 0003570726) 226 mg/dL 70-110 H Lab Interpretation (test code = Abnormal 97905-0) [facility] GLUCOSE (AUTOMATED)2022-05-13 18:37:54 Test Item Value Reference Range Interpretation Comments POCT GLU (test code = 9777433756) 204 mg/dL 70-110 H Lab Interpretation (test code = Abnormal 47301-1) [facility] GLUCOSE (AUTOMATED)2022-05-13 18:37:54 Test Item Value Reference Range Interpretation Comments POCT GLU (test code = 5248068311) 204 mg/dL 70-110 H Lab Interpretation (test code = Abnormal 69903-7) [facility] GLUCOSE (AUTOMATED)2022-05-13 15:19:05 Test Item Value Reference Range Interpretation Comments POCT GLU (test code = 9490669305) 193 mg/dL 70-110 H Lab Interpretation (test code = Abnormal 14141-1) [facility] GLUCOSE (AUTOMATED)2022-05-13 15:19:05 Test Item Value Reference Range Interpretation Comments POCT GLU (test code = 8207945197) 193 mg/dL 70-110 H Lab Interpretation (test code = Abnormal 78372-6) [facility] GLUCOSE (AUTOMATED)2022-05-13 06:45:36 Test Item Value Reference Range Interpretation Comments POCT GLU (test code = 5142075699) 161 mg/dL 70-110 H Lab Interpretation (test code = Abnormal 17780-9) [facility] GLUCOSE (AUTOMATED)2022-05-13 06:45:36 Test Item Value Reference Range Interpretation Comments POCT GLU (test code = 9467092852) 161 mg/dL 70-110 H Lab Interpretation (test code = Abnormal 32817-7) [facility] GLUCOSE (AUTOMATED)2022-05-13 03:00:00 Test Item Value Reference Range Interpretation Comments POCT GLU (test code = 0956256793) 311 mg/dL 70-110 H Lab Interpretation (test code = Abnormal 22433-8) [facility] GLUCOSE (AUTOMATED)2022-05-13 03:00:00 Test Item Value Reference Range Interpretation Comments POCT GLU (test code = 8517343015) 311 mg/dL 70-110 H Lab Interpretation (test code = Abnormal 02778-6) [facility] GLUCOSE (AUTOMATED)2022-05-13 00:46:16 Test Item Value Reference Range Interpretation Comments POCT GLU (test code = 0854268407) 135 mg/dL 70-110 H Lab Interpretation (test code = Abnormal 30655-2) [facility] GLUCOSE (AUTOMATED)2022-05-13 00:46:16 Test Item Value Reference Range Interpretation Comments POCT GLU (test code = 4457158377) 135 mg/dL 70-110 H Lab Interpretation (test code = Abnormal 61740-0) [facility] GLUCOSE (AUTOMATED)2022-05-12 17:42:03 Test Item Value Reference Range Interpretation Comments POCT GLU (test code = 9403665815) 204 mg/dL 70-110 H Lab Interpretation (test code = Abnormal 17939-9) [facility] GLUCOSE (AUTOMATED)2022-05-12 17:42:03 Test Item Value Reference Range Interpretation Comments POCT GLU (test code = 6629975016) 204 mg/dL 70-110 H Lab Interpretation (test code = Abnormal 73266-8) [facility] GLUCOSE (AUTOMATED)2022-05-12 15:39:26 Test Item Value Reference Range Interpretation Comments POCT GLU (test code = 3508456250) 180 mg/dL 70-110 H Lab Interpretation (test code = Abnormal 52501-3) [facility] GLUCOSE (AUTOMATED)2022-05-12 15:39:26 Test Item Value Reference Range Interpretation Comments POCT GLU (test code = 0800049957) 180 mg/dL 70-110 H Lab Interpretation (test code = Abnormal 67500-2) [facility] 02:50:51 Test Item Value Reference Range Interpretation Comments POCT GLU (test code = 4118299313) 214 mg/dL 70-110 H Lab Interpretation (test code = Abnormal 39154-7) [facility] 02:50:51 Test Item Value Reference Range Interpretation Comments POCT GLU (test code = 1346686425) 214 mg/dL 70-110 H Lab Interpretation (test code = Abnormal 38482-3) [facility]22-[facility]11 23:41:52 Test Item Value Reference Range Interpretation Comments POCT GLU (test code = 4001682170) 317 mg/dL 70-110 H Lab Interpretation (test code = Abnormal 31626-8) [facility] GLUCOSE (AUTOMATED)2022-05-11 23:41:52 Test Item Value Reference Range Interpretation Comments POCT GLU (test code = 3310871037) 317 mg/dL 70-110 H Lab Interpretation (test code = Abnormal 20343-2) [facility] 17:39:02 Test Item Value Reference Range Interpretation Comments POCT GLU (test code = 4341120773) 286 mg/dL 70-110 H Lab Interpretation (test code = Abnormal 64922-4) [facility] GLUCOSE (AUTOMATED)2022-05-11 17:39:02 Test Item Value Reference Range Interpretation Comments POCT GLU (test code = 3961230728) 286 mg/dL 70-110 H Lab Interpretation (test code = Abnormal 90408-1) [facility] GLUCOSE (AUTOMATED)2022-05-11 14:02:36 Test Item Value Reference Range Interpretation Comments POCT GLU (test code = 0515863728) 191 mg/dL 70-110 H Lab Interpretation (test code = Abnormal 52794-1) [facility] 14:02:36 Test Item Value Reference Range Interpretation Comments POCT GLU (test code = 1515800276) 191 mg/dL 70-110 H Lab Interpretation (test code = Abnormal 62436-6) [facility] GLUCOSE (AUTOMATED)2022-05-11 01:51:30 Test Item Value Reference Range Interpretation Comments POCT GLU (test code = 7615688136) 133 mg/dL 70-110 H Lab Interpretation (test code = Abnormal 12740-9) [facility] GLUCOSE (AUTOMATED)2022-05-11 01:51:30 Test Item Value Reference Range Interpretation Comments POCT GLU (test code = 7603056070) 133 mg/dL 70-110 H Lab Interpretation (test code = Abnormal 98624-8) [facility] GLUCOSE (AUTOMATED)2022-05-10 23:37:15 Test Item Value Reference Range Interpretation Comments POCT GLU (test code = 5547637135) 124 mg/dL 70-110 H Lab Interpretation (test code = Abnormal 17409-4) [facility] GLUCOSE (AUTOMATED)2022-05-10 23:37:15 Test Item Value Reference Range Interpretation Comments POCT GLU (test code = 0450149753) 124 mg/dL 70-110 H Lab Interpretation (test code = Abnormal 34868-2) [facility] 2022-05-10 18:10:39 Test Item Value Reference Range Interpretation Comments Height (test code = in 1609404733) Weight (test code = lbs 5332306559) Systolic BP (test code mmHg = 4232267155) Diastolic BP (test code mmHg = 6485857722) Heart Rate (test code = bpm 4363028511) BSA (test code = 1.98 m2 3600180977) Base ST Depresion (mm) 0 mm (test code = 0718142801) LVIDD (test code = 6.50 cm 4169136580) Left Ventricular End 214.3 mL Diastolic Volume by Teichholz Method (test code = 0849729) IVS (test code = 0.88 cm 5870787679) Interventricular Septum 0.88 cm Diastolic Thickness by 2D (test code = 9466155) LVPWD (test code = 1.02 cm 0857869359) PW (test code = 1.02 cm 0.6-1.5 9969274543) LAV(MOD-sp4) (test code 116.20 mL = 2166191774) LA Volume Index (BP) 62.2 mL/m2 (test code = 2887885984) LA volume (BP) (test 123.4 mL code = 7730756783) LAV(MOD-sp2) (test code 124.50 mL = 8243933735) MV Peak A Jayme (test 73.5 cm/s code = 7310537651) MV Peak E Jayme (test 132.8 cm/s code = 9956041829) E/A ratio (test code = ratio 2099548791) Radiology Study observation (narrative) (test code = 10269-3) INDIRA (test code = INDIRA) Table formatting from the original result was not included. ?Left?Ventricle: Left ventricle is severely dilated. Akinetic apex with severe hypokinesis of the anteroseptum, inferoseptum , mid to apical anterior wall and inferior wall. The inferolateral and anterolateral wall contractility appear to be relatively preserved. Severely reduced systolic function with a visually estimated EF of 20 - 25%. There is grade 2 diastolic dysfunction. ?Left?Atrium: Left atrium is severely dilated. ?IVC/SVC: IVC diameter is less than or equal to 21 mm and decreases greater than 50% during inspiration; therefore the estimated right atrial pressure is normal (~0-5 mmHg). ?Resting?ECG: ST depressions and T wave inversions noted on inferior wall. The ECG shows normal sinus rhythm. ?Stress?ECG: Unchanged ST depression compared to basesline. Arrhythmias during stress: rare PVCs. ?Post-stress: Low dose dobutamine study: There is biphasic response noted more prominent on anterior septum and anterior wall with improvement on contractility on 10 mcg/kg/min and worsening at peak of 20 mcg/kg/min. Inferior wall shows no improvement with low dose and peak dobutamine.Monophasic response noted on the inferolateral wall. ?Post-stress?Impressio n: Results are suggestive of viabile myocardium in LAD territory in the anterior wall and anteroseptum segments. Stress ResultsProtocol: DSE Maximum Predicted HR: 158 Target HR: 134 % Maximum Predicted HR: 80 Stage Duration (mm:ss) Heart Rate (bpm) BP Dose Comment Baseline ?94 137/77 ? Peak 9:01 127 169/61 20 ?Recovery 4 4:00 125 162/61 ?5MG METOPROLOL Recovery 10 10:00 82 121/63 ? ?Add'l Recovery ?Stress Duration: 9:01 Recovery Time: 9:00 Maximum Stress HR: 127 ? Left VentricleLeft ventricle is severely dilated. Akinetic apex with severe hypokinesis of the anteroseptum, inferoseptum , mid to apical anterior wall and inferior wall. The inferolateral and anterolateral wall contractility appear to be relatively preserved. Severely reduced systolic function with a visually estimated EF of 20 - 25%. There is grade 2 diastolic dysfunction.Right VentricleRight ventricle size is normal. Low normal systolic function.Left AtriumLeft atrium is severely dilated.Right AtriumRight atrium size is normal.IVC/SVCIVC diameter is less than or equal to 21 mm and decreases greater than 50% during inspiration; therefore the estimated right atrial pressure is normal (~0-5 mmHg).Mitral ValveMildly thickened leaflets. Mildly calcified leaflets. Mild mitral annular calcification. Trace transvalvular regurgitation.Tricuspid ValveTricuspid valve structure is normal. Insufficient tricuspid regurgitation jet to estimate RVSP.RA pressure is 0-5 mmHg.Aortic ValveTricuspid. Mildly thickened cusps. Mildly calcified cusps. Trace transvalvular regurgitation. No hemodynamically significant .Pulmonic ValveNot well visualized.Ascending AortaNormal sized annulus and sinus of Valsalva.PericardiumSma ll pericardial effusion present.Study DetailsA Dobutamine stress echocardiogram was performed using 2D, color flow Doppler and spectral Doppler. The apical, parasternal, subcostal and suprasternal views were obtained. 2 mL of Definity ultrasound enhancing agent used. MR, RNResting ECGST depressions and T wave inversions noted on inferior wall. The ECG shows normal sinus rhythm.Stress FindingsA cardiac Low dose dobutamine stress test was performed. The patient reported no symptoms during the stress test. Blood pressure demonstrated a normal response and heart rate demonstrated a normal response to stress. The patient's heart rate recovery was normal.Stress ECGUnchanged ST depression compared to basesline. Arrhythmias during stress: rare PVCs.Echo Post StressLow dose dobutamine study: There is biphasic response noted more prominent on anterior septum and anterior wall with improvement on contractility on 10 mcg/kg/min and worsening at peak of 20 mcg/kg/min. Inferior wall shows no improvement with low dose and peak dobutamine.Monophasic response noted on the inferolateral wall.Study ImpressionResults are suggestive of viabile myocardium in LAD territory in the anterior wall and anteroseptum segments.Wall Scoring BaselineScore Index: 1.88The following segments are akinetic: apical septal, apical lateral and apex.The following segments are hypokinetic: basal anteroseptal, basal inferoseptal, mid anterior, mid anteroseptal, mid inferoseptal, mid inferior, apical anterior and apical inferior.The following segments are hyperkinetic: basal anterolateral and mid anterolateral.The following segments are normal: basal inferior, basal inferolateral and mid inferolateral.Other segments could not be evaluated. [facility] 2022-[facility]-10 18:10:39 Test Item Value Reference Range Interpretation Comments Height (test code = in 9508660480) Weight (test code = lbs 2599752705) Systolic BP (test code mmHg = 5871726842) Diastolic BP (test code mmHg = 5707679449) Heart Rate (test code = bpm 8553652593) BSA (test code = 1.98 m2 2146840049) Base ST Depresion (mm) 0 mm (test code = 1152543722) LVIDD (test code = 6.50 cm 5719145337) Left Ventricular End 214.3 mL Diastolic Volume by Teichholz Method (test code = 2388615) IVS (test code = 0.88 cm 6094377869) Interventricular Septum 0.88 cm Diastolic Thickness by 2D (test code = 5648761) LVPWD (test code = 1.02 cm 0100922345) PW (test code = 1.02 cm 0.6-1.2 0094334132) LAV(MOD-sp4) (test code 116.20 mL = 8087599033) LA Volume Index (BP) 62.2 mL/m2 (test code = 6029111280) LA volume (BP) (test 123.4 mL code = 6730657160) LAV(MOD-sp2) (test code 124.50 mL = 6458456591) MV Peak A Jayme (test 73.5 cm/s code = 9017405559) MV Peak E Jayme (test 132.8 cm/s code = 0986488936) E/A ratio (test code = ratio 1200831169) Radiology Study observation (narrative) (test code = 72245-8) INDIRA (test code = INDIRA) Table formatting from the original result was not included. ?Left?Ventricle: Left ventricle is severely dilated. Akinetic apex with severe hypokinesis of the anteroseptum, inferoseptum , mid to apical anterior wall and inferior wall. The inferolateral and anterolateral wall contractility appear to be relatively preserved. Severely reduced systolic function with a visually estimated EF of 20 - 25%. There is grade 2 diastolic dysfunction. ?Left?Atrium: Left atrium is severely dilated. ?IVC/SVC: IVC diameter is less than or equal to 21 mm and decreases greater than 50% during inspiration; therefore the estimated right atrial pressure is normal (~0-5 mmHg). ?Resting?ECG: ST depressions and T wave inversions noted on inferior wall. The ECG shows normal sinus rhythm. ?Stress?ECG: Unchanged ST depression compared to basesline. Arrhythmias during stress: rare PVCs. ?Post-stress: Low dose dobutamine study: There is biphasic response noted more prominent on anterior septum and anterior wall with improvement on contractility on 10 mcg/kg/min and worsening at peak of 20 mcg/kg/min. Inferior wall shows no improvement with low dose and peak dobutamine.Monophasic response noted on the inferolateral wall. ?Post-stress?Impressio n: Results are suggestive of viabile myocardium in LAD territory in the anterior wall and anteroseptum segments. Stress ResultsProtocol: DSE Maximum Predicted HR: 158 Target HR: 134 % Maximum Predicted HR: 80 Stage Duration (mm:ss) Heart Rate (bpm) BP Dose Comment Baseline ?94 137/77 ? Peak 9:01 127 169/61 20 ?Recovery 4 4:00 125 162/61 ?5MG METOPROLOL Recovery 10 10:00 82 121/63 ? ?Add'l Recovery ?Stress Duration: 9:01 Recovery Time: 9:00 Maximum Stress HR: 127 ? Left VentricleLeft ventricle is severely dilated. Akinetic apex with severe hypokinesis of the anteroseptum, inferoseptum , mid to apical anterior wall and inferior wall. The inferolateral and anterolateral wall contractility appear to be relatively preserved. Severely reduced systolic function with a visually estimated EF of 20 - 25%. There is grade 2 diastolic dysfunction.Right VentricleRight ventricle size is normal. Low normal systolic function.Left AtriumLeft atrium is severely dilated.Right AtriumRight atrium size is normal.IVC/SVCIVC diameter is less than or equal to 21 mm and decreases greater than 50% during inspiration; therefore the estimated right atrial pressure is normal (~0-5 mmHg).Mitral ValveMildly thickened leaflets. Mildly calcified leaflets. Mild mitral annular calcification. Trace transvalvular regurgitation.Tricuspid ValveTricuspid valve structure is normal. Insufficient tricuspid regurgitation jet to estimate RVSP.RA pressure is 0-5 mmHg.Aortic ValveTricuspid. Mildly thickened cusps. Mildly calcified cusps. Trace transvalvular regurgitation. No hemodynamically significant .Pulmonic ValveNot well visualized.Ascending AortaNormal sized annulus and sinus of Valsalva.PericardiumSma ll pericardial effusion present.Study DetailsA Dobutamine stress echocardiogram was performed using 2D, color flow Doppler and spectral Doppler. The apical, parasternal, subcostal and suprasternal views were obtained. 2 mL of Definity ultrasound enhancing agent used. MR, RNResting ECGST depressions and T wave inversions noted on inferior wall. The ECG shows normal sinus rhythm.Stress FindingsA cardiac Low dose dobutamine stress test was performed. The patient reported no symptoms during the stress test. Blood pressure demonstrated a normal response and heart rate demonstrated a normal response to stress. The patient's heart rate recovery was normal.Stress ECGUnchanged ST depression compared to basesline. Arrhythmias during stress: rare PVCs.Echo Post StressLow dose dobutamine study: There is biphasic response noted more prominent on anterior septum and anterior wall with improvement on contractility on 10 mcg/kg/min and worsening at peak of 20 mcg/kg/min. Inferior wall shows no improvement with low dose and peak dobutamine.Monophasic response noted on the inferolateral wall.Study ImpressionResults are suggestive of viabile myocardium in LAD territory in the anterior wall and anteroseptum segments.Wall Scoring BaselineScore Index: 1.88The following segments are akinetic: apical septal, apical lateral and apex.The following segments are hypokinetic: basal anteroseptal, basal inferoseptal, mid anterior, mid anteroseptal, mid inferoseptal, mid inferior, apical anterior and apical inferior.The following segments are hyperkinetic: basal anterolateral and mid anterolateral.The following segments are normal: basal inferior, basal inferolateral and mid inferolateral.Other segments could not be evaluated. [facility] GLUCOSE (AUTOMATED)2022-05-10 17:56:56 Test Item Value Reference Range Interpretation Comments POCT GLU (test code = 1890877099) 155 mg/dL 70-110 H Lab Interpretation (test code = Abnormal 96072-5) [facility]:56 Test Item Value Reference Range Interpretation Comments POCT GLU (test code = 1464252916) 155 mg/dL 70-110 H Lab Interpretation (test code = Abnormal 22644-2) [facility] GLUCOSE (AUTOMATED)2022-05-10 14:18:39 Test Item Value Reference Range Interpretation Comments POCT GLU (test code = 1764010833) 138 mg/dL 70-110 H Lab Interpretation (test code = Abnormal 45391-0) [facility] GLUCOSE (AUTOMATED)2022-05-10 14:18:39 Test Item Value Reference Range Interpretation Comments POCT GLU (test code = 3951835339) 138 mg/dL 70-110 H Lab Interpretation (test code = Abnormal 60287-3) [facility] GLUCOSE (AUTOMATED)2022-05-10 02:08:53 Test Item Value Reference Range Interpretation Comments POCT GLU (test code = 6667865838) 149 mg/dL 70-110 H Lab Interpretation (test code = Abnormal 40951-5) [facility] 02:08:53 Test Item Value Reference Range Interpretation Comments POCT GLU (test code = 8457752283) 149 mg/dL 70-110 H Lab Interpretation (test code = Abnormal 81526-9) [facility] GLUCOSE (AUTOMATED)2022-05-09 22:36:48 Test Item Value Reference Range Interpretation Comments POCT GLU (test code = 7055021907) 215 mg/dL 70-110 H Lab Interpretation (test code = Abnormal 15749-0) [facility] 22:36:48 Test Item Value Reference Range Interpretation Comments POCT GLU (test code = 1999936856) 215 mg/dL 70-110 H Lab Interpretation (test code = Abnormal 28717-4) [facility] GLUCOSE (AUTOMATED)2022-05-09 18:10:26 Test Item Value Reference Range Interpretation Comments POCT GLU (test code = 4994766191) 251 mg/dL 70-110 H Lab Interpretation (test code = Abnormal 98069-2) [facility] GLUCOSE (AUTOMATED)2022-05-09 18:10:26 Test Item Value Reference Range Interpretation Comments POCT GLU (test code = 6853084825) 251 mg/dL 70-110 H Lab Interpretation (test code = Abnormal 15134-0) [facility] GLUCOSE (AUTOMATED)2022-05-09 14:50:33 Test Item Value Reference Range Interpretation Comments POCT GLU (test code = 2121334321) 106 mg/dL 70-110 Lab Interpretation (test code = Normal 04790-7) [facility] (AUTOMATED)2022-05-09 14:50:33 Test Item Value Reference Range Interpretation Comments POCT GLU (test code = 2333131342) 106 mg/dL 70-110 Lab Interpretation (test code = Normal 62332-3) [facility] GLUCOSE (AUTOMATED)2022-05-09 03:19:47 Test Item Value Reference Range Interpretation Comments POCT GLU (test code = 2292965927) 137 mg/dL 70-110 H Lab Interpretation (test code = Abnormal 06402-0) [facility] GLUCOSE (AUTOMATED)2022-05-09 03:19:47 Test Item Value Reference Range Interpretation Comments POCT GLU (test code = 7776647618) 137 mg/dL 70-110 H Lab Interpretation (test code = Abnormal 02824-7) [facility] GLUCOSE (AUTOMATED)2022-05-08 23:14:52 Test Item Value Reference Range Interpretation Comments POCT GLU (test code = 3338594188) 141 mg/dL 70-110 H Lab Interpretation (test code = Abnormal 00007-7) [facility] GLUCOSE (AUTOMATED)2022-05-08 23:14:52 Test Item Value Reference Range Interpretation Comments POCT GLU (test code = 5064035656) 141 mg/dL 70-110 H Lab Interpretation (test code = Abnormal 88583-9) [facility] 23:05:34 Test Item Value Reference Range Interpretation Comments HBsAB (test code = Negative 5470403825) HBsAb 0.00 mIU/mL Semi-Quantitative (test code = 8461045942) INDIRA (test code = Interpretation: INDIRA) ?Hepatitis B Surface Antibody ? Negative - Patient is considered to be not immune to infection with HBV. ? ? Positive - Anti-HBs detected at greater than or equal to 12 mIU/mL. ?Patient is considered to be immune to infection with HBV. ? [facility]22-05-08 23:05:34 Test Item Value Reference Range Interpretation Comments HBsAB (test code = Negative 5216745986) HBsAb mIU/mL Semi-Quantitative (test code = 3727793999) INDIRA (test code = Interpretation: INDIRA) ?Hepatitis B Surface Antibody ? Negative - Patient is considered to be not immune to infection with HBV. ? ? Positive - Anti-HBs detected at greater than or equal to 12 mIU/mL. ?Patient is considered to be immune to infection with HBV. ? [facility] GLUCOSE (AUTOMATED)2022-05-08 18:07:50 Test Item Value Reference Range Interpretation Comments POCT GLU (test code = 4986734452) 186 mg/dL 70-110 H Lab Interpretation (test code = Abnormal 98158-7) [facility] GLUCOSE (AUTOMATED)2022-05-08 18:07:50 Test Item Value Reference Range Interpretation Comments POCT GLU (test code = 5670581828) 186 mg/dL 70-110 H Lab Interpretation (test code = Abnormal 76075-3) [facility] GLUCOSE (AUTOMATED)2022-05-08 15:24:48 Test Item Value Reference Range Interpretation Comments POCT GLU (test code = 4397058834) 99 mg/dL 70-110 Lab Interpretation (test code = Normal 37856-8) [facility] GLUCOSE (AUTOMATED)2022-05-08 15:24:48 Test Item Value Reference Range Interpretation Comments POCT GLU (test code = 0970747230) 99 mg/dL 70-110 Lab Interpretation (test code = Normal 15924-1) [facility] GLUCOSE (AUTOMATED)2022-05-08 04:39:05 Test Item Value Reference Range Interpretation Comments POCT GLU (test code = 6657937251) 104 mg/dL 70-110 Lab Interpretation (test code = Normal 37715-0) [facility] GLUCOSE (AUTOMATED)2022-05-08 04:39:05 Test Item Value Reference Range Interpretation Comments POCT GLU (test code = 8909537270) 104 mg/dL 70-110 Lab Interpretation (test code = Normal 73305-0) [facility] GLUCOSE (AUTOMATED)2022-05-07 23:10:18 Test Item Value Reference Range Interpretation Comments POCT GLU (test code = 5152637846) 133 mg/dL 70-110 H Lab Interpretation (test code = Abnormal 43004-6) [facility] GLUCOSE (AUTOMATED)2022-05-07 23:10:18 Test Item Value Reference Range Interpretation Comments POCT GLU (test code = 1650746297) 133 mg/dL 70-110 H Lab Interpretation (test code = Abnormal 66933-3) [facility] GLUCOSE (AUTOMATED)2022-05-07 18:50:35 Test Item Value Reference Range Interpretation Comments POCT GLU (test code = 2369524156) 225 mg/dL 70-110 H Lab Interpretation (test code = Abnormal 16174-3) [facility] GLUCOSE (AUTOMATED)2022-05-07 18:50:35 Test Item Value Reference Range Interpretation Comments POCT GLU (test code = 6307688864) 225 mg/dL 70-110 H Lab Interpretation (test code = Abnormal 10783-1) [facility] GLUCOSE (AUTOMATED)2022-05-07 14:35:45 Test Item Value Reference Range Interpretation Comments POCT GLU (test code = 1387048254) 133 mg/dL 70-110 H Lab Interpretation (test code = Abnormal 06022-8) [facility] GLUCOSE (AUTOMATED)2022-05-07 14:35:45 Test Item Value Reference Range Interpretation Comments POCT GLU (test code = 9203751691) 133 mg/dL 70-110 H Lab Interpretation (test code = Abnormal 23384-1) [facility] GLUCOSE (AUTOMATED)2022-05-07 05:24:01 Test Item Value Reference Range Interpretation Comments POCT GLU (test code = 0202296754) 167 mg/dL 70-110 H Lab Interpretation (test code = Abnormal 79776-7) [facility] GLUCOSE (AUTOMATED)2022-05-07 05:24:01 Test Item Value Reference Range Interpretation Comments POCT GLU (test code = 5493695877) 167 mg/dL 70-110 H Lab Interpretation (test code = Abnormal 11904-1) [facility] GLUCOSE (AUTOMATED)2022-05-07 00:18:44 Test Item Value Reference Range Interpretation Comments POCT GLU (test code = 9308673926) 148 mg/dL 70-110 H Lab Interpretation (test code = Abnormal 37745-0) [facility] GLUCOSE (AUTOMATED)2022-05-07 00:18:44 Test Item Value Reference Range Interpretation Comments POCT GLU (test code = 9014352624) 148 mg/dL 70-110 H Lab Interpretation (test code = Abnormal 41831-1) [facility] GLUCOSE (AUTOMATED)2022-05-06 19:47:24 Test Item Value Reference Range Interpretation Comments POCT GLU (test code = 9240609062) 154 mg/dL 70-110 H Lab Interpretation (test code = Abnormal 31585-3) [facility] GLUCOSE (AUTOMATED)2022-05-06 19:47:24 Test Item Value Reference Range Interpretation Comments POCT GLU (test code = 4741613913) 154 mg/dL 70-110 H Lab Interpretation (test code = Abnormal 85197-2) [facility] GLUCOSE (AUTOMATED)2022-05-06 18:03:43 Test Item Value Reference Range Interpretation Comments POCT GLU (test code = 3899060426) 175 mg/dL 70-110 H Lab Interpretation (test code = Abnormal 40624-8) [facility] GLUCOSE (AUTOMATED)2022-05-06 18:03:43 Test Item Value Reference Range Interpretation Comments POCT GLU (test code = 9218140042) 175 mg/dL 70-110 H Lab Interpretation (test code = Abnormal 36646-1) [facility] GLUCOSE (AUTOMATED)2022-05-06 14:21:33 Test Item Value Reference Range Interpretation Comments POCT GLU (test code = 2100961190) 122 mg/dL 70-110 H Lab Interpretation (test code = Abnormal 57434-6) [facility] GLUCOSE (AUTOMATED)2022-05-06 14:21:33 Test Item Value Reference Range Interpretation Comments POCT GLU (test code = 6478395298) 122 mg/dL 70-110 H Lab Interpretation (test code = Abnormal 71612-5) [facility] GLUCOSE (AUTOMATED)2022-05-06 04:41:52 Test Item Value Reference Range Interpretation Comments POCT GLU (test code = 8224156602) 166 mg/dL 70-110 H Lab Interpretation (test code = Abnormal 84245-6) [facility] GLUCOSE (AUTOMATED)2022-05-06 04:41:52 Test Item Value Reference Range Interpretation Comments POCT GLU (test code = 1036610309) 166 mg/dL 70-110 H Lab Interpretation (test code = Abnormal 05694-7) [facility] GLUCOSE (AUTOMATED)2022-05-05 22:57:50 Test Item Value Reference Range Interpretation Comments POCT GLU (test code = 9745408240) 146 mg/dL 70-110 H Lab Interpretation (test code = Abnormal 66370-0) [facility] GLUCOSE (AUTOMATED)2022-05-05 22:57:50 Test Item Value Reference Range Interpretation Comments POCT GLU (test code = 7673268539) 146 mg/dL 70-110 H Lab Interpretation (test code = Abnormal 62119-3) [facility] GLUCOSE (AUTOMATED)2022-05-05 18:28:38 Test Item Value Reference Range Interpretation Comments POCT GLU (test code = 5241332104) 131 mg/dL 70-110 H Lab Interpretation (test code = Abnormal 22022-3) [facility] GLUCOSE (AUTOMATED)2022-05-05 18:28:38 Test Item Value Reference Range Interpretation Comments POCT GLU (test code = 4380917837) 131 mg/dL 70-110 H Lab Interpretation (test code = Abnormal 03454-4) [facility] GLUCOSE (AUTOMATED)2022-05-05 14:22:11 Test Item Value Reference Range Interpretation Comments POCT GLU (test code = 5303736523) 107 mg/dL 70-110 Lab Interpretation (test code = Normal 68659-4) [facility] GLUCOSE (AUTOMATED)2022-05-05 14:22:11 Test Item Value Reference Range Interpretation Comments POCT GLU (test code = 7317530040) 107 mg/dL 70-110 Lab Interpretation (test code = Normal 27830-3) [facility] GLUCOSE (AUTOMATED)2022-05-05 02:50:12 Test Item Value Reference Range Interpretation Comments POCT GLU (test code = 1682452859) 131 mg/dL 70-110 H Lab Interpretation (test code = Abnormal 36868-5) [facility] GLUCOSE (AUTOMATED)2022-05-05 02:50:12 Test Item Value Reference Range Interpretation Comments POCT GLU (test code = 5358311031) 131 mg/dL 70-110 H Lab Interpretation (test code = Abnormal 76541-6) [facility] GLUCOSE (AUTOMATED)2022-05-04 23:30:39 Test Item Value Reference Range Interpretation Comments POCT GLU (test code = 8088525183) 135 mg/dL 70-110 H Lab Interpretation (test code = Abnormal 26004-8) [facility] GLUCOSE (AUTOMATED)2022-05-04 23:30:39 Test Item Value Reference Range Interpretation Comments POCT GLU (test code = 0948799713) 135 mg/dL 70-110 H Lab Interpretation (test code = Abnormal 05106-9) [facility] GLUCOSE (AUTOMATED)2022-05-04 18:28:39 Test Item Value Reference Range Interpretation Comments POCT GLU (test code = 7351451317) 160 mg/dL 70-110 H Lab Interpretation (test code = Abnormal 12615-1) [facility] GLUCOSE (AUTOMATED)2022-05-04 18:28:39 Test Item Value Reference Range Interpretation Comments POCT GLU (test code = 2113336977) 160 mg/dL 70-110 H Lab Interpretation (test code = Abnormal 04755-0) [facility] GLUCOSE (AUTOMATED)2022-05-04 14:50:13 Test Item Value Reference Range Interpretation Comments POCT GLU (test code = 7921466054) 126 mg/dL 70-110 H Lab Interpretation (test code = Abnormal 49182-4) [facility] GLUCOSE (AUTOMATED)2022-05-04 14:50:13 Test Item Value Reference Range Interpretation Comments POCT GLU (test code = 9888707380) 126 mg/dL 70-110 H Lab Interpretation (test code = Abnormal 52622-2) [facility] GLUCOSE (AUTOMATED)2022-05-04 03:14:07 Test Item Value Reference Range Interpretation Comments POCT GLU (test code = 8983786380) 140 mg/dL 70-110 H Lab Interpretation (test code = Abnormal 22850-7) [facility] 03:14:07 Test Item Value Reference Range Interpretation Comments POCT GLU (test code = 1466177097) 140 mg/dL 70-110 H Lab Interpretation (test code = Abnormal 06725-4) [facility] 01:53:20 Test Item Value Reference Range Interpretation Comments Height (test code = in 2067346828) Weight (test code = lbs 9733523382) Systolic BP (test code mmHg = 3593800611) Diastolic BP (test code mmHg = 0364297865) Heart Rate (test code = bpm 7524870411) BSA (test code = 1.99 m2 2715740764) LVOT stroke volume 62.90 cm3 (test code = 7912723517) EF(Teich) (test code = 51.40 % 2146989222) LVIDD (test code = 6.00 cm 6845442063) LVIDS (test code = 4.40 cm 3970728059) Left Ventricular End 85.9 mL Systolic Volume by Teichholz Method (test code = 4461149) Left Ventricular End 176.7 mL Diastolic Volume by Teichholz Method (test code = 5378348) IVS (test code = 0.95 cm 6152182766) LVPWD (test code = 0.95 cm 9316881280) LVOT diameter (test 2.16 cm code = 5266685813) LVOT area (test code = 3.70 cm2 9720497901) FS (test code = 27 % 0442168475) MV Peak E Jayme (test 137.7 cm/s code = 2054512135) MV Peak A Jayme (test 89.4 cm/s code = 6365033507) E/A ratio (test code = ratio 3604978735) E wave decelartion time 0.16 s (test code = 2218341866) MV E/e' septal (test 4.6 cm/s code = 1459382389) LA Volume Index (BP) 48.7 mL/m2 (test code = 2839136950) LA volume (BP) (test 96.9 mL code = 3522081969) LVOT peak jayme (test 90.6 cm/s code = 6994706003) LVOT mn grad (test code mmHg = 2110107523) LA size (test code = 4.5 cm 4307040290) LAV(MOD-sp2) (test code 105.10 mL = 7231101044) LAV(MOD-sp4) (test code 80.90 mL = 5399229093) Tapse (test code = 1.82 cm 0709625977) Aortic valve mean 113.1 cm/s velocity (test code = 2768656711) Ao peak jayme (test code 186.0 cm/s = 1381130487) Ao VTI (test code = 32.9 cm 8124810020) AV LVOT peak gradient mmHg (test code = 8922316696) LVOT peak VTI (test 17.2 cm code = 2016102458) AV area by cont VTI 1.9 cm2 (test code = 8059033515) AV area peak jayme (test 1.8 cm2 code = 6820047662) LV V1 mean (test code = 56.60 cm/s 6779574963) Ao max PG (test code = 13.80 mm[Hg] 3909936939) MV Prop V (test code = 41.90 cm/s 6480282001) TR Peak Jayme (test code 352.5 cm/s = 4056695427) Triscuspid Valve mmHg Regurgitation Peak Gradient (test code = 2292071666) Ao root diam (test code 3.00 cm = 4749531497) AV peak gradient (test mmHg code = 8426869875) AV valve area (test 1.91 cm2 code = 4995147350) AV mean gradient (test mmHg code = 9129367885) Aortic root (test code 3.0 cm = 5569905351) Ao root annulus (test 3.0 cm code = 6753814418) PW (test code = 0.95 cm 0.6-1.6 6859545557) EF - 2D (test code = 51.40 % 03940198) Interventricular Septum 0.95 cm Diastolic Thickness by 2D (test code = 4175127) A4C EF (test code = 23.50 % 0547407174) EF(sp4-el) (test code = 25.00 % 9091044195) SV(MOD-sp4) (test code 49.40 mL = 1849562044) SV(sp4-el) (test code = 55.60 mL 4603753048) LV Diastolic Volume 208.5 mL (BP) (test code = 6891131405) A2C EF (test code = 25.80 % 6898125374) EF(MOD-bp) (test code = 23.90 % 2856196158) EF(sp2-el) (test code = 24.20 % 5773340302) LV Systolic Volume (BP) 158.6 mL (test code = 1402359118) SV(MOD-bp) (test code = 49.90 mL 0545859021) SV(MOD-sp2) (test code 52.70 mL = 3013392430) EF (test code = 0240490146) Left Ventricular Stroke 49.9 mL Volume by 2-D Biplane-MOD (test code = 6399380) LV Diastolic Volume 104.8 mL/m2 Index (BP) (test code = 8844093926) LV Systolic Volume 79.7 mL/m2 Index (BP) (test code = 0279762663) Radiology Study observation (narrative) (test code = 05576-2) INDIRA (test code = INDIRA) ?Left?Ventricle: Left ventricle is severely dilated. Normal wall thickness. Severe global hypokinesis present with akinesis of the apex and all apical segments. Severely reduced systolic function with a visually estimated EF of 20 - 25%. EF by 2D Espinal biplane is 24%. There is grade 2 diastolic dysfunction. Elevated left ventricular filling pressure. ?Left?Atrium: Left atrium is moderately dilated. ?Right?Ventricle: Right ventricle size is normal. Mildly reduced systolic function. ?IVC/SVC: IVC diameter is less than or equal to 21 mm and decreases less than 50% during inspiration; therefore the estimated right atrial pressure is intermediate (~8 mmHg). ?Tricuspid?Valve: Tricuspid valve structure is normal. Trace transvalvular regurgitation. Right ventricular systolic pressure is 55-60 mmHg. ?Pericardium: Small pericardial effusion present. Left VentricleLeft ventricle is severely dilated. Normal wall thickness. Severe global hypokinesis present with akinesis of the apex and all apical segments. Severely reduced systolic function with a visually estimated EF of 20 - 25%. EF by 2D Espinal biplane is 24%. There is grade 2 diastolic dysfunction. Elevated left ventricular filling pressure.Right VentricleRight ventricle size is normal. Mildly reduced systolic function.Left AtriumLeft atrium is moderately dilated.Right AtriumRight atrium size is normal.IVC/SVCIVC diameter is less than or equal to 21 mm and decreases less than 50% during inspiration; therefore the estimated right atrial pressure is intermediate (~8 mmHg).Mitral ValveMitral valve structure is normal. Mild transvalvular regurgitation.Tricuspid ValveTricuspid valve structure is normal. Trace transvalvular regurgitation. Right ventricular systolic pressure is 55-60 mmHg.Aortic ValveAortic valve opens well. No transvalvular regurgitation. No evidence of aortic stenosis.Pulmonic ValveNot well visualized. Pulmonic valve is normal in structure and function.Ascending AortaNormal sized annulus and sinus of Valsalva.PericardiumSma ll pericardial effusion present.Study DetailsA complete echocardiogram was performed using 2D, color flow Doppler and spectral Doppler. The apical, parasternal and subcostal views were obtained. 3 mL of Optison ultrasound enhancing agent used. [facility] 01:53:20 Test Item Value Reference Range Interpretation Comments Height (test code = in 7965798608) Weight (test code = lbs 6809231038) Systolic BP (test code mmHg = 3916711658) Diastolic BP (test code mmHg = 8087692508) Heart Rate (test code = bpm 5960485678) BSA (test code = 1.99 m2 6217429774) LVOT stroke volume 62.90 cm3 (test code = 0421581148) EF(Teich) (test code = 51.40 % 3416489509) LVIDD (test code = 6.00 cm 4507362771) LVIDS (test code = 4.40 cm 5995628036) Left Ventricular End 85.9 mL Systolic Volume by Teichholz Method (test code = 8854126) Left Ventricular End 176.7 mL Diastolic Volume by Teichholz Method (test code = 0921217) IVS (test code = 0.95 cm 3166043440) LVPWD (test code = 0.95 cm 5020091370) LVOT diameter (test 2.16 cm code = 3077649245) LVOT area (test code = 3.70 cm2 4730729678) FS (test code = 27 % 9946790341) MV Peak E Jayme (test 137.7 cm/s code = 1737315202) MV Peak A Jayme (test 89.4 cm/s code = 1539593548) E/A ratio (test code = ratio 6314122581) E wave decelartion time 0.16 s (test code = 4297711847) MV E/e' septal (test 4.6 cm/s code = 2463482419) LA Volume Index (BP) 48.7 mL/m2 (test code = 5800947333) LA volume (BP) (test 96.9 mL code = 7656231032) LVOT peak jayme (test 90.6 cm/s code = 2343917017) LVOT mn grad (test code mmHg = 9596357750) LA size (test code = 4.5 cm 6955918655) LAV(MOD-sp2) (test code 105.10 mL = 6866528728) LAV(MOD-sp4) (test code 80.90 mL = 2194170447) Tapse (test code = 1.82 cm 2021734825) Aortic valve mean 113.1 cm/s velocity (test code = 5847743539) Ao peak jayme (test code 186.0 cm/s = 5100216549) Ao VTI (test code = 32.9 cm 2330864613) AV LVOT peak gradient mmHg (test code = 0130488687) LVOT peak VTI (test 17.2 cm code = 9711559006) AV area by cont VTI 1.9 cm2 (test code = 6141704479) AV area peak jayme (test 1.8 cm2 code = 0919001128) LV V1 mean (test code = 56.60 cm/s 7116981141) Ao max PG (test code = 13.80 mm[Hg] 0481201842) MV Prop V (test code = 41.90 cm/s 4157662908) TR Peak Jayme (test code 352.5 cm/s = 3384668646) Triscuspid Valve mmHg Regurgitation Peak Gradient (test code = 2724097577) Ao root diam (test code 3.00 cm = 2232218109) AV peak gradient (test mmHg code = 7339421568) AV valve area (test 1.91 cm2 code = 4031479092) AV mean gradient (test mmHg code = 0294973679) Aortic root (test code 3.0 cm = 4325924365) Ao root annulus (test 3.0 cm code = 6805424356) PW (test code = 0.95 cm 0.6-1.0 5565698949) EF - 2D (test code = 51.40 % 70206312) Interventricular Septum 0.95 cm Diastolic Thickness by 2D (test code = 0728544) A4C EF (test code = 23.50 % 5762408104) EF(sp4-el) (test code = 25.00 % 0076514062) SV(MOD-sp4) (test code 49.40 mL = 5712129509) SV(sp4-el) (test code = 55.60 mL 6188271727) LV Diastolic Volume 208.5 mL (BP) (test code = 7524160672) A2C EF (test code = 25.80 % 4463896291) EF(MOD-bp) (test code = 23.90 % 1611407009) EF(sp2-el) (test code = 24.20 % 8583669800) LV Systolic Volume (BP) 158.6 mL (test code = 8396584239) SV(MOD-bp) (test code = 49.90 mL 1075216214) SV(MOD-sp2) (test code 52.70 mL = 4954846855) EF (test code = 0645364007) Left Ventricular Stroke 49.9 mL Volume by 2-D Biplane-MOD (test code = 8064469) LV Diastolic Volume 104.8 mL/m2 Index (BP) (test code = 8214918515) LV Systolic Volume 79.7 mL/m2 Index (BP) (test code = 3841751830) Radiology Study observation (narrative) (test code = 34659-6) INDIRA (test code = INDIRA) ?Left?Ventricle: Left ventricle is severely dilated. Normal wall thickness. Severe global hypokinesis present with akinesis of the apex and all apical segments. Severely reduced systolic function with a visually estimated EF of 20 - 25%. EF by 2D Espinal biplane is 24%. There is grade 2 diastolic dysfunction. Elevated left ventricular filling pressure. ?Left?Atrium: Left atrium is moderately dilated. ?Right?Ventricle: Right ventricle size is normal. Mildly reduced systolic function. ?IVC/SVC: IVC diameter is less than or equal to 21 mm and decreases less than 50% during inspiration; therefore the estimated right atrial pressure is intermediate (~8 mmHg). ?Tricuspid?Valve: Tricuspid valve structure is normal. Trace transvalvular regurgitation. Right ventricular systolic pressure is 55-60 mmHg. ?Pericardium: Small pericardial effusion present. Left VentricleLeft ventricle is severely dilated. Normal wall thickness. Severe global hypokinesis present with akinesis of the apex and all apical segments. Severely reduced systolic function with a visually estimated EF of 20 - 25%. EF by 2D Espinal biplane is 24%. There is grade 2 diastolic dysfunction. Elevated left ventricular filling pressure.Right VentricleRight ventricle size is normal. Mildly reduced systolic function.Left AtriumLeft atrium is moderately dilated.Right AtriumRight atrium size is normal.IVC/SVCIVC diameter is less than or equal to 21 mm and decreases less than 50% during inspiration; therefore the estimated right atrial pressure is intermediate (~8 mmHg).Mitral ValveMitral valve structure is normal. Mild transvalvular regurgitation.Tricuspid ValveTricuspid valve structure is normal. Trace transvalvular regurgitation. Right ventricular systolic pressure is 55-60 mmHg.Aortic ValveAortic valve opens well. No transvalvular regurgitation. No evidence of aortic stenosis.Pulmonic ValveNot well visualized. Pulmonic valve is normal in structure and function.Ascending AortaNormal sized annulus and sinus of Valsalva.PericardiumSma ll pericardial effusion present.Study DetailsA complete echocardiogram was performed using 2D, color flow Doppler and spectral Doppler. The apical, parasternal and subcostal views were obtained. 3 mL of Optison ultrasound enhancing agent used. [facility] GLUCOSE (AUTOMATED)2022-05-03 23:03:58 Test Item Value Reference Range Interpretation Comments POCT GLU (test code = 1839831467) 143 mg/dL 70-110 H Lab Interpretation (test code = Abnormal 98909-1) [facility] GLUCOSE (AUTOMATED)2022-05-03 23:03:58 Test Item Value Reference Range Interpretation Comments POCT GLU (test code = 2107127292) 143 mg/dL 70-110 H Lab Interpretation (test code = Abnormal 10793-4) [facility] GLUCOSE (AUTOMATED)2022-05-03 18:19:06 Test Item Value Reference Range Interpretation Comments POCT GLU (test code = 7476225293) 182 mg/dL 70-110 H Lab Interpretation (test code = Abnormal 31351-7) [facility] GLUCOSE (AUTOMATED)2022-05-03 18:19:06 Test Item Value Reference Range Interpretation Comments POCT GLU (test code = 4851837497) 182 mg/dL 70-110 H Lab Interpretation (test code = Abnormal 91302-5) [facility] GLUCOSE (AUTOMATED)2022-05-03 14:19:51 Test Item Value Reference Range Interpretation Comments POCT GLU (test code = 3329034063) 132 mg/dL 70-110 H Lab Interpretation (test code = Abnormal 80692-9) [facility] GLUCOSE (AUTOMATED)2022-05-03 14:19:51 Test Item Value Reference Range Interpretation Comments POCT GLU (test code = 5513878544) 132 mg/dL 70-110 H Lab Interpretation (test code = Abnormal 19583-7) [facility] Arterial Blood Gas.2022-05-03 07:51:10 Test Item Value Reference Range Interpretation Comments PH (test code = 2) 7.35-7.45 L PCO2 (test code = See_Comment H [Automate d message] 7144131181) The system [employer] generated this result transmitted ref erence range: 35 - 45 mmHg. The reference r lucille was not used to interpret this result as normal/abnor mal. PO2 (test code = See_Comment L [Automated message] [id number]) The system [employer] generated this result transmitted ref erence range: 80 - 100 mmHg. The reference r lucille was not used to interpret this result as normal/abnor mal. HCO3 (test code = See_Comment [Automate d message] 4894099554) The system [employer] generated this result transmitted ref erence range: 22 - 26 mEq/L. The reference r lucille was not used to interpret this result as normal/abnor mal. BE (test code = See_Comment L [Automated message] 7591311882) The system [employer] generated this result transmitted ref erence range: -3.0 - 3 .0 mEq/L. The refe rence range was not u sed to interpret this result as normal/abnor mal. Lab Interpretation (test Abnormal code = 62201-0) [facility] Arterial Blood Gas.2022-05-03 07:51:10 Test Item Value Reference Range Interpretation Comments PH (test code = 2) 7.35-7.45 L PCO2 (test code = See_Comment H [Automate d message] 5485235702) The system [employer] generated this result transmitted ref erence range: 35 - 45 mmHg. The reference r lucille was not used to interpret this result as normal/abnor mal. PO2 (test code = See_Comment L [Automated message] 5821755997) The system [employer] generated this result transmitted ref erence range: 80 - 100 mmHg. The reference r lucille was not used to interpret this result as normal/abnor mal. HCO3 (test code = See_Comment [Automate d message] 2937907592) The system [employer] generated this result transmitted ref erence range: 22 - 26 mEq/L. The reference r lucille was not used to interpret this result as normal/abnor mal. BE (test code = See_Comment L [Automated message] 0965111604) The system [employer] generated this result transmitted ref erence range: -3.0 - 3 .0 mEq/L. The refe rence range was not u sed to interpret this result as normal/abnor mal. Lab Interpretation (test Abnormal code = 66749-3) [facility] Arterial Blood Gas.2022-05-03 07:51:10 Test Item Value Reference Range Interpretation Comments PH (test code = 2) 7.28 7.35-7.45 L PCO2 (test code = 48 See_Comment H [Automate d message] 2181795308) The system [employer] generated this result transmitted ref erence range: 35 - 45 mmHg. The reference r lucille was not used to interpret this result as normal/abnor mal. PO2 (test code = 69 See_Comment L [Automated message] 8412703977) The system [employer] generated this result transmitted ref erence range: 80 - 100 mmHg. The reference r lucille was not used to interpret this result as normal/abnor mal. HCO3 (test code = 22 See_Comment [Automate d message] 1337988932) The system [employer] generated this result transmitted ref erence range: 22 - 26 mEq/L. The reference r lucille was not used to interpret this result as normal/abnor mal. BE (test code = -5.0 See_Comment L [Automated message] 9793197903) The system [employer] generated this result transmitted ref erence range: -3.0 - 3 .0 mEq/L. The refe rence range was not u sed to interpret this result as normal/abnor mal. Lab Interpretation (test Abnormal code = 45261-0) [facility] GLUCOSE (AUTOMATED)2022-05-03 03:31:08 Test Item Value Reference Range Interpretation Comments POCT GLU (test code = 7866753076) 129 mg/dL 70-110 H Lab Interpretation (test code = Abnormal 39719-0) [facility] GLUCOSE (AUTOMATED)2022-05-03 03:31:08 Test Item Value Reference Range Interpretation Comments POCT GLU (test code = 3116330603) 129 mg/dL 70-110 H Lab Interpretation (test code = Abnormal 31005-6) [facility] GLUCOSE (AUTOMATED)2022-05-03 00:07:06 Test Item Value Reference Range Interpretation Comments POCT GLU (test code = 0285878998) 140 mg/dL 70-110 H Lab Interpretation (test code = Abnormal 58953-9) [facility] GLUCOSE (AUTOMATED)2022-05-03 00:07:06 Test Item Value Reference Range Interpretation Comments POCT GLU (test code = 4731060787) 140 mg/dL 70-110 H Lab Interpretation (test code = Abnormal 47245-7) [facility] GLUCOSE (AUTOMATED)2022-05-02 19:38:18 Test Item Value Reference Range Interpretation Comments POCT GLU (test code = 8767593013) 151 mg/dL 70-110 H Lab Interpretation (test code = Abnormal 85075-8) [facility] GLUCOSE (AUTOMATED)2022-05-02 19:38:18 Test Item Value Reference Range Interpretation Comments POCT GLU (test code = 9148723823) 151 mg/dL 70-110 H Lab Interpretation (test code = Abnormal 07241-1) [facility] GLUCOSE (AUTOMATED)2022-05-02 15:22:18 Test Item Value Reference Range Interpretation Comments POCT GLU (test code = 7516255098) 102 mg/dL 70-110 Lab Interpretation (test code = Normal 66736-1) [facility] GLUCOSE (AUTOMATED)2022-05-02 15:22:18 Test Item Value Reference Range Interpretation Comments POCT GLU (test code = 4823522195) 102 mg/dL 70-110 Lab Interpretation (test code = Normal 59889-2) [facility] GLUCOSE (AUTOMATED)2022-05-02 05:11:38 Test Item Value Reference Range Interpretation Comments POCT GLU (test code = 2452037936) 90 mg/dL 70-110 Lab Interpretation (test code = Normal 08041-2) [facility] GLUCOSE (AUTOMATED)2022-05-02 05:11:38 Test Item Value Reference Range Interpretation Comments POCT GLU (test code = 1292436113) 90 mg/dL 70-110 Lab Interpretation (test code = Normal 46150-2) [facility]02 04:00:41 Test Item Value Reference Range Interpretation Comments HGB A1C (test code = 5.9 % 4.0-5.7 H 4548-4) INDIRA (test code = INDIRA) Reference RangesNormal: <5.7%Prediabetes: 5.7 - 6.4%Diabetes: > 6.5% Lab Interpretation (test Abnormal code = 84743-4) [facility]2022-05-02 04:00:41 Test Item Value Reference Range Interpretation Comments HGB A1C (test code = 5.9 % 4.0-5.7 H 4548-4) INDIRA (test code = INDIRA) Reference RangesNormal: <5.7%Prediabetes: 5.7 - 6.4%Diabetes: > 6.5% Lab Interpretation (test Abnormal code = 78386-7) [facility]2022-05-02 04:00:41 Test Item Value Reference Range Interpretation Comments HGB A1C (test code = 5.9 % 4.0-5.7 H 4548-4) INDIRA (test code = INDIRA) Reference RangesNormal: <5.7%Prediabetes: 5.7 - 6.4%Diabetes: > 6.5% Lab Interpretation (test Abnormal code = 17876-1) [facility] [id number] 02:09:40 Test Item Value Reference Range Interpretation Comments FERRITIN (test code = 159.0 ng/mL 11.0-264.0 0272168287) INDIRA (test code = INDIRA) Biotin has been reported to cause a negative bias, interpret results relative to patient's use of biotin. Lab Interpretation (test Normal code = 07277-3) [facility] [id number] 02:09:40 Test Item Value Reference Range Interpretation Comments FERRITIN (test code = 159.0 ng/mL 11.0-264.0 7732431568) INDIRA (test code = INDIRA) Biotin has been reported to cause a negative bias, interpret results relative to patient's use of biotin. Lab Interpretation (test Normal code = 54436-9) [facility] [id number] 02:09:40 Test Item Value Reference Range Interpretation Comments FERRITIN (test code = 159.0 ng/mL 11.0-264.0 6840177161) INDIRA (test code = INDIRA) Biotin has been reported to cause a negative bias, interpret results relative to patient's use of biotin. Lab Interpretation (test Normal code = 63853-5) [facility] [id number] 01:41:39 Test Item Value Reference Range Interpretation Comments IRON (test code = 2432802375) 56 ug/dL 50-160 TIBC (test code = 8033833832) 325 ug/dL 250-410 % FE SAT (test code = 6331245137) 17 % 20-50 L Lab Interpretation (test code = Abnormal 69188-7) [facility] [id number] 01:41:39 Test Item Value Reference Range Interpretation Comments IRON (test code = 5692732085) 56 ug/dL 50-160 TIBC (test code = 4936684064) 325 ug/dL 250-410 % FE SAT (test code = 5795369264) 17 % 20-50 L Lab Interpretation (test code = Abnormal 95899-7) [facility] [id number] 01:41:39 Test Item Value Reference Range Interpretation Comments IRON (test code = 3473386769) 56 ug/dL 50-160 TIBC (test code = 1687764889) 325 ug/dL 250-410 % FE SAT (test code = 8921245155) 17 % 20-50 L Lab Interpretation (test code = Abnormal 80606-1) [facility] [id number] 19:50:59 Test Item Value Reference Range Interpretation Comments NT-proBNP (test code 74227 pg/mL See_Comment H [Autom ated = 0405535241) message] The system which generated this result transmitted reference range : <=125. The reference range was not used to interpret this result as normal/abnormal . INDIRA (test code = INDIRA) Biotin has been reported to cause a negative bias, interpret results relative to patient's use of biotin. Lab Interpretation Abnormal (test code = 21164-1) [facility]-TERMINAL [id number] 19:50:59 Test Item Value Reference Range Interpretation Comments NT-proBNP (test code 93529 pg/mL See_Comment H [Autom ated = 8393551925) message] The system which generated this result transmitted reference range : <=125. The reference range was not used to interpret this result as normal/abnormal . INDIRA (test code = INDIRA) Biotin has been reported to cause a negative bias, interpret results relative to patient's use of biotin. Lab Interpretation Abnormal (test code = 19412-6) [facility] WITH [id number] 19:25:27 Test Item Value Reference Range Interpretation Comments WBC (test code = See_Comment [Automated 9490-2) message] The sy stem which generated this result transmitted reference range : 4.30 - 11.10 10*3/?L. The reference range was not used to interpret this result as normal/abnormal . RBC (test code = See_Comment [Automated 388-8) message] The sy stem which generated this result transmitted reference range : 3.93 - 5.25 10*6/?L. The reference range was not used to interpret this result as normal/abnormal . HGB (test code = 12.3 g/dL 11.6-15.0 718-7) HCT (test code = 38.0 % 35.7-45.2 4544-3) MCV (test code = 91.6 fL 80.6-95.5 787-2) MCH (test code = 29.6 pg 25.9-32.8 785-6) MCHC (test code = 32.4 g/dL 31.6-35.1 786-4) RDW-SD (test code = 52.3 fL 39.0-49.9 H 69917-2) RDW-CV (test code = 15.8 % 12.0-15.5 H 788-0) PLT (test code = See_Comment [Automated 777-3) message] The sy stem which generated this result transmitted reference range : 166 - 358 10*3/ ?L. The reference r lucille was not used to interpret this result as normal/abnormal . MPV (test code = 11.2 fL 9.5-12.9 46903-7) IPF % (test code = 1.6 % 1.3-7.7 Platelet count 2330096070) measured by fluorescence method. NRBC/100 WBC (test See_Comment [Automat ed code = 4953817034) message] The system which generated this result transmitted reference range : 0.0 - 10.0 /100 WBCs. The refer ence range was not u sed to interpret th is result as normal/abnormal . NRBC x10^3 (test code See_Comment [Auto mated = 3436981017) message] The s ystem which generated this result transmitted reference range : 10*3/?L. The reference range was not used to interpret this result as normal/abnormal . GRAN MAT (NEUT) % 83.8 % (test code = 770-8) IMM GRAN % (test code 0.60 % = 9557863380) LYMPH % (test code = 9.0 % 736-9) MONO % (test code = 5.0 % 5905-5) EOS % (test code = 1.0 % 713-8) BASO % (test code = 0.6 % 706-2) GRAN MAT x10^3(ANC) 7.04 10*3/uL 1.88-7.09 (test code = 8767801240) IMM GRAN x10^3 (test 0.05 10*3/uL 0.00-0.06 code = 6526830349) LYMPH x10^3 (test code 0.76 10*3/uL 1.32-3.29 L = 731-0) MONO x10^3 (test code 0.42 10*3/uL 0.33-0.92 = 742-7) EOS x10^3 (test code = 0.08 10*3/uL 0.03-0.39 711-2) BASO x10^3 (test code 0.05 10*3/uL 0.01-0.07 = 704-7) JOANNE CELLS (test code 2+ See_Comment A [Auto mated = 7790-9) message] The sy stem which generated this result transmitted reference range : (none). The reference range was not used to interpret this result as normal/abnormal . ELLIPTO/OVAL (test 2+ See_Comment A [Automat ed code = 14266-2) message] The system which generated this result transmitted reference range : (none). The reference range was not used to interpret this result as normal/abnormal . HJ BODIES (test code = Present A 7793-3) POLYCHROMASIA (test 2+ See_Comment [Automa alex code = 45359-2) message] The system which generated this result transmitted reference range : 2+. The referen ce range was not u sed to interpret th is result as normal/abnormal . SCHISTOCYTES (test 1+ A code = 800-3) TARGET CELLS (test 2+ See_Comment A [Automat ed code = 58771-8) message] The system which generated this result transmitted reference range : (none). The reference range was not used to interpret this result as normal/abnormal . Lab Interpretation Abnormal (test code = 20843-0) [facility] WITH [id number] 19:25:27 Test Item Value Reference Range Interpretation Comments WBC (test code = 8.40 See_Comment [Automated 3190-2) message] The sy stem which generated this result transmitted reference range : 4.30 - 11.10 10*3/?L. The reference range was not used to interpret this result as normal/abnormal . RBC (test code = 4.15 See_Comment [Automated 109-8) message] The sy stem which generated this result transmitted reference range : 3.93 - 5.25 10*6/?L. The reference range was not used to interpret this result as normal/abnormal . HGB (test code = 12.3 g/dL 11.6-15.0 718-7) HCT (test code = 38.0 % 35.7-45.2 4544-3) MCV (test code = 91.6 fL 80.6-95.5 787-2) MCH (test code = 29.6 pg 25.9-32.8 785-6) MCHC (test code = 32.4 g/dL 31.6-35.1 786-4) RDW-SD (test code = 52.3 fL 39.0-49.9 H 70168-6) RDW-CV (test code = 15.8 % 12.0-15.5 H 788-0) PLT (test code = 196 See_Comment [Automated 777-3) message] The sy stem which generated this result transmitted reference range : 166 - 358 10*3/ ?L. The reference r lucille was not used to interpret this result as normal/abnormal . MPV (test code = 11.2 fL 9.5-12.9 99073-7) IPF % (test code = 1.6 % 1.3-7.7 Platelet count 6662446034) measured by fluorescence method. NRBC/100 WBC (test 0.4 See_Comment [Automat ed code = 1173263840) message] The system which generated this result transmitted reference range : 0.0 - 10.0 /100 WBCs. The refer ence range was not u sed to interpret th is result as normal/abnormal . NRBC x10^3 (test code 0.03 See_Comment [Auto mated = 1731508767) message] The s ystem which generated this result transmitted reference range : 10*3/?L. The reference range was not used to interpret this result as normal/abnormal . GRAN MAT (NEUT) % 83.8 % (test code = 770-8) IMM GRAN % (test code 0.60 % = 6344483924) LYMPH % (test code = 9.0 % 736-9) MONO % (test code = 5.0 % 5905-5) EOS % (test code = 1.0 % 713-8) BASO % (test code = 0.6 % 706-2) GRAN MAT x10^3(ANC) 7.04 10*3/uL 1.88-7.09 (test code = 4339761654) IMM GRAN x10^3 (test 0.05 10*3/uL 0.00-0.06 code = 0548418808) LYMPH x10^3 (test code 0.76 10*3/uL 1.32-3.29 L = 731-0) MONO x10^3 (test code 0.42 10*3/uL 0.33-0.92 = 742-7) EOS x10^3 (test code = 0.08 10*3/uL 0.03-0.39 711-2) BASO x10^3 (test code 0.05 10*3/uL 0.01-0.07 = 704-7) JOANNE CELLS (test code 2+ See_Comment A [Auto mated = 7790-9) message] The sy stem which generated this result transmitted reference range : (none). The reference range was not used to interpret this result as normal/abnormal . ELLIPTO/OVAL (test 2+ See_Comment A [Automat ed code = 16704-1) message] The system which generated this result transmitted reference range : (none). The reference range was not used to interpret this result as normal/abnormal . HJ BODIES (test code = Present A 7793-3) POLYCHROMASIA (test 2+ See_Comment [Automa alex code = 46919-0) message] The system which generated this result transmitted reference range : 2+. The referen ce range was not u sed to interpret th is result as normal/abnormal . SCHISTOCYTES (test 1+ A code = 800-3) TARGET CELLS (test 2+ See_Comment A [Automat ed code = 96302-2) message] The system which generated this result transmitted reference range : (none). The reference range was not used to interpret this result as normal/abnormal . Lab Interpretation Abnormal (test code = 71475-5) [facility] [id number] 19:12:22 Test Item Value Reference Interpretation Comments Range TROPONIN I (test 0.027 ng/mL See_Comment [Automated code = 5256118421) message] The system which generated this result [...] to patient's use of biotin. Lab Interpretation Normal (test code = 63818-8) [facility] [id number] 19:12:22 Test Item Value Reference Interpretation Comments Range TROPONIN I (test 0.027 ng/mL See_Comment [Automated code = 5669761793) message] The system which generated this result [...] to patient's use of biotin. Lab Interpretation Normal (test code = 74777-1) [facility]. METABOLIC PANEL (60787)2022-05-01 19:00:18 Test Item Value Reference Range Interpretation Comments NA (test code = 137 mmol/L 135-145 2933305279) K (test code = 4.7 mmol/L 3.5-5.0 7999732723) CL (test code = 107 mmol/L 98-108 6566145815) CO2 TOTAL (test code = 17 mmol/L 23-31 L 1599403162) AGAP (test code = 2-16 7137383945) BUN (test code = 79 mg/dL 7-23 H 0496417454) GLUCOSE (test code = 51 mg/dL 70-110 L 1257463143) CREATININE (test code = 6.62 mg/dL 0.50-1.04 H 9062442691) TOTAL BILI (test code = 0.6 mg/dL 0.1-1.8 8920520440) CALCIUM (test code = 8.4 mg/dL 8.6-10.6 L 8503625876) T PROTEIN (test code = 6.7 g/dL 6.3-8.2 4636907328) ALBUMIN (test code = 3.7 g/dL 3.5-5.0 5207441507) ALK PHOS (test code = 107 U/L 34-122 8690369139) ALTv (test code = 19 U/L 5-35 1742-6) AST(SGOT) (test code = 30 U/L 13-40 7261871454) eGFR (test code = mL/min/1.73m2 7211196929) INDIRA (test code = INDIRA) Association of [...] tests). Lab Interpretation Abnormal (test code = 68380-1) [facility]. METABOLIC PANEL (99467)2022-05-01 19:00:18 Test Item Value Reference Range Interpretation Comments NA (test code = 137 mmol/L 135-145 2636229362) K (test code = 4.7 mmol/L 3.5-5.0 7846273024) CL (test code = 107 mmol/L 98-108 7403717683) CO2 TOTAL (test code = 17 mmol/L 23-31 L 3026888695) AGAP (test code = 13 2-16 3991808300) BUN (test code = 79 mg/dL 7-23 H 5828755952) GLUCOSE (test code = 51 mg/dL 70-110 L 2501900866) CREATININE (test code = 6.62 mg/dL 0.50-1.04 H 9518588017) TOTAL BILI (test code = 0.6 mg/dL 0.1-1.5 5235106200) CALCIUM (test code = 8.4 mg/dL 8.6-10.6 L 7278441295) T PROTEIN (test code = 6.7 g/dL 6.3-8.2 8226850450) ALBUMIN (test code = 3.7 g/dL 3.5-5.0 2283483416) ALK PHOS (test code = 107 U/L 34-122 3933884445) ALTv (test code = 19 U/L 5-35 1742-6) AST(SGOT) (test code = 30 U/L 13-40 9527181671) eGFR (test code = 6.3 mL/min/1.73m2 2791811964) INDIRA (test code = INDIRA) Association of [...] tests). Lab Interpretation Abnormal (test code = 42974-5) [facility] [id number] 18:48:48 Test Item Value Reference Range Interpretation Comments LACTIC ACID (test code = 1.17 mmol/L 0.50-2.20 1482029081) Lab Interpretation (test code = Normal 72239-9) [facility] [id number] 18:48:48 Test Item Value Reference Range Interpretation Comments LACTIC ACID (test code = 1.17 mmol/L 0.50-2.20 4209421823) Lab Interpretation (test code = Normal 49529-7) [facility] [id number] 18:48:48 Test Item Value Reference Range Interpretation Comments LACTIC ACID (test code = 1.17 mmol/L 0.50-2.20 3540186841) Lab Interpretation (test code = Normal 92327-4) [facility] METABOLIC [id number] 05:32:51 Test Item Value Reference Range Interpretation Comments GLUCOSE (test code 47 MG/DL 70-99 L = 7) BUN (test code = 52 MG/DL 8-23 H 2207) CREATININE (test 5.18 MG/DL 0.60-1.30 H code = 2214) eGFR (2020 CKD-EPI) 9 ML/MIN/1.73 >60 L (test code = 05641) SODIUM (test code = 144 MEQ/L 660-981 0473) POTASSIUM (test 4.5 MEQ/L 3.5-5.4 code = 2228) CHLORIDE (test code 110 MEQ/L 95-107 H = 5) CARBON DIOXIDE 21 MEQ/L 19-31 (test code = 2206) CALCIUM (test code 9.0 MG/DL 8.5-10.5 UNLESS O THERWISE = 2208) INDICATED, ALL TESTING PERFORM [facility], I [id number] [place] [address] DIRECTOR: CLAUDIO HALL M.D. CLIA NUMBER [id number] CAP ACCREDITATION N O. [id number] HEMOGLOBIN [id number] 04:40:08 Test Item Value Reference Range Interpretation Comments HEMOGLOBIN A1c (test 7.2 % 4.2-5.6 H AMERIC AN DIABETES code = 49671) ASSOCIATION IDELINES FOR HGB A1C: PREDIABETES/INC REASED RISK . . . . . . . 5.7 -6.4% DIAGNOSIS OF DI ABETES . . . . . . . . . >=6 .5% WITH CONFIRMATION OR APPROPRIATE SYMPTOMS NOTE: ASSAY MAY BE AFFECTED BY HEMOGLOBINOPATH IES (SICKLE CELL ANEMIA, S- C DISEASE, OTHERS) OR JAVI FICIALLY LOWERED BY DECR EASED RED CELL SURVIVAL ( HEMOLYTIC ANEMIAS, BLOOD LOSS, ETC.). CONSIDER ALTERN ATE TESTING OR LABORATORY C ONSULTATION. UNLESS OTHERWIS E INDICATED, ALL TESTING PER FORMED ATCLINICAL PATH [facility], I [place]. [address] [place] [address] LABORATORY DIRE CTOR: CLAUDIO HALL M.D. CLIA NUMBER [id number] [place]. [id number] H. PYLORI (BREATH)2021-11-28 13:35:23 Test Item Value Reference Range Interpretation Comments H. PYLORI (BREATH) NEGATIVE NEGATIVE UNLESS O THERWISE (test code = 69890) INDICATE D, ALL TESTING PERFORMED [facility] [employer] [address] [facility] [place] [address] [place] DIRECTOR: CLAUDIO HALL M.D. JOYCEIA NUMBER [id number] CAP ACCREDITATION N O. [id number] TSH, THIRD [id number] 07:00:14 Test Item Value Reference Range Interpretation Comments TSH, THIRD GENERATION (test code 2.490 UIU/ML 0.400-4.100 = 2821) LIPID [id number] 05:47:30 Test Item Value Reference Range Interpretation Comments CHOLESTEROL (test 135 MG/DL <200 code = 2210) TRIGLYCERIDES (test 92 MG/DL <150 code = 2232) HDL CHOLESTEROL (test 53 MG/DL >39 code = 2220) CALC LDL CHOL (test 64 MG/DL <100 NOTE: C ALCULATED LDL code = 2237) IS BASED ON PHILIPPE-MENCHACA METHOD WHICHINCLUDES ADJUSTABLE TRIGLYCERIDE:VL DL CHOLESTEROL RAT IO.THIS FACTOR VARIES B Y MEASURED TRIGLY CERIDE AND NON-HDLCHOL ESTEROL CONCENTRATIONS WITH INCREASED CALCU LATED LDL SEENIN HIGH ER TRIGLYCERIDE OR LOWER NON-HDL SPECIME NS. FOR MOREINFORMATION , SEE CLIENT ANNOUNCE MENT AT [email or web address] /[email or web address] RISK RATIO LDL/HDL 1.21 RATIO <3.22 (test code = 2238) COMPREHENSIVE METABOLIC [id number] 05:47:30 Test Item Value Reference Range Interpretation Comments GLUCOSE (test code = 76 MG/DL 70-99 2216) BUN (test code = 46 MG/DL 8-23 H 2207) CREATININE (test 3.69 MG/DL 0.60-1.30 H code = 2214) eGFR (2020 CKD-EPI) 13 ML/MIN/1.73 >60 L (test code = 35315) CALC BUN/CREAT (test 12 RATIO 6-28 code = 2235) SODIUM (test code = 141 MEQ/L 487-196 4178) POTASSIUM (test code 5.0 MEQ/L 3.5-5.4 = 2227) CHLORIDE (test code 108 MEQ/L 95-107 H = 2214) CARBON DIOXIDE (test 18 MEQ/L 19-31 L code = 2206) CALCIUM (test code = 9.3 MG/DL 8.5-10.5 2208) PROTEIN, TOTAL (test 6.4 G/DL 6.1-8.3 code = 2229) ALBUMIN (test code = 3.6 G/DL 3.5-5.2 2200) CALC GLOBULIN (test 2.8 G/DL 1.9-3.7 code = 2240) CALC A/G RATIO (test 1.3 RATIO 1.0-2.6 code = 2234) BILIRUBIN, TOTAL 0.3 MG/DL See_Comment [Automated message] (test code = 220) The syste m which generated this result transmit alex reference range : <=1.2. The refe rence range was not u sed to interpret th is result as normal/abnormal . ALKALINE PHOSPHATASE 153 U/L 40-140 H (test code = 2203) AST (test code = 19 U/L 9-40 8) ALT (test code = 13 U/L 5-40 2218) CBC W/AUTO DIFF WITH [id number] 01:54:48 Test Item Value Reference Range Interpretation Comments WBC (test code = 9.2 K/UL 3.5-11.0 1001) RBC (test code = 3.73 M/UL 3.80-5.40 L 1002) HEMOGLOBIN (test code 11.4 G/DL 11.5-15.5 L = 1003) HEMATOCRIT (test code 34.4 % 34.0-45.0 = 1004) MCV (test code = 92.2 fL 80.0-99.0 1005) MCH (test code = 30.6 PG 25.0-33.0 1006) MCHC (test code = 33.1 G/DL 31.0-36.0 1007) RDW (test code = 13.9 % 11.5-15.0 1038) NEUTROPHILS (test 71.6 % code = 1008) LYMPHOCYTES (test 17.8 % code = 1010) MONOCYTES (test code 7.2 % = 1011) EOSINOPHILS (test 2.8 % code = 1012) BASOPHILS (test code 0.3 % = 1013) IMMATURE GRANULOCYTES 0.3 % (test code = 1036) NUCLEATED RBCS (test 0.0 /100 WBC'S See_Comment [Aut omated code = 1065) message] The sy stem which generated this result transmitted reference range : 0.0. The refere nce range was not u sed to interpret th is result as normal/abnormal . PLATELET COUNT (test 218 K/UL 130-400 code = 1015) ABSOLUTE NEUTROPHILS 6.59 K/UL 1.50-7.50 (test code = 1066) ABSOLUTE LYMPHOCYTES 1.64 K/UL 1.00-4.00 (test code = 1067) ABSOLUTE MONOCYTES 0.66 K/UL 0.20-1.00 (test code = 1068) ABSOLUTE EOSINOPHILS 0.26 K/UL 0.00-0.50 (test code = 1040) ABSOLUTE BASOPHILS 0.03 K/UL 0.00-0.20 (test code = 1069) ABS IMMATURE 0.03 K/UL 0.00-0.10 GRANULOCYTES (test code = 1020) ABS NUCLEATED RBCS 0.00 K/UL 0.00-0.11 (test code = 00531) TSH, THIRD [id number] 01:43:38 Test Item Value Reference Range Interpretation Comments TSH, THIRD 2.160 UIU/ML 0.400-4.100 UNLESS OTHERWI SE GENERATION (test INDICATED, ALL TESTING code = 2821) PERFORMED [facility], [facility]. [address] [place] [id number] [place] [address] DIRECTOR: CLAUDIO HALL M.D. CLIA NUMBER [id number] CAP ACCREDITATION N O. [id number] LIPID [id number] 01:12:10 Test Item Value Reference Range Interpretation Comments CHOLESTEROL (test 135 MG/DL <200 code = 2210) TRIGLYCERIDES (test 154 MG/DL <150 H code = 2232) HDL CHOLESTEROL (test 47 MG/DL >39 code = 2220) CALC LDL CHOL (test 64 MG/DL <100 NOTE: C ALCULATED LDL code = 2237) IS BASED ON PHILIPPE-MENCHACA METHOD WHICHINCLUDES ADJUSTABLE TRIGLYCERIDE:VL DL CHOLESTEROL RAT IO.THIS FACTOR VARIES B Y MEASURED TRIGLY CERIDE AND NON-HDLCHOL ESTEROL CONCENTRATIONS WITH INCREASED CALCU LATED LDL SEENIN HIGH ER TRIGLYCERIDE OR LOWER NON-HDL SPECIME NS. FOR MOREINFORMATION , SEE CLIENT ANNOUNCE MENT AT [email or web address] RISK RATIO LDL/HDL 1.36 RATIO <3.22 (test code = 2238) COMPREHENSIVE METABOLIC [id number] 01:12:10 Test Item Value Reference Range Interpretation Comments GLUCOSE (test code = 228 MG/DL 70-99 H 2216) BUN (test code = 58 MG/DL 8-23 H 2207) CREATININE (test 4.12 MG/DL 0.60-1.30 H code = 2214) eGFR (2020 CKD-EPI) 12 ML/MIN/1.73 >60 L (test code = 58604) CALC BUN/CREAT (test 14 RATIO 6-28 code = 2235) SODIUM (test code = 140 MEQ/L 748-258 7797) POTASSIUM (test code 4.9 MEQ/L 3.5-5.4 = 2227) CHLORIDE (test code 106 MEQ/L 95-107 = 2214) CARBON DIOXIDE (test 20 MEQ/L 19-31 code = 2206) CALCIUM (test code = 9.2 MG/DL 8.5-10.5 2208) PROTEIN, TOTAL (test 6.1 G/DL 6.1-8.3 code = 222) ALBUMIN (test code = 3.5 G/DL 3.5-5.2 2200) CALC GLOBULIN (test 2.6 G/DL 1.9-3.7 code = 2240) CALC A/G RATIO (test 1.3 RATIO 1.0-2.6 code = 2234) BILIRUBIN, TOTAL <0.2 MG/DL See_Comment [Automated message] (test code = 2207) The syste m which generated this result transmit alex reference range : <=1.2. The refe rence range was not u sed to interpret th is result as normal/abnormal . ALKALINE PHOSPHATASE 148 U/L 40-140 H (test code = 2204) AST (test code = 14 U/L 9-40 2217) ALT (test code = 13 U/L 5-40 2218) [id number] 18:46:20 Test Item Value Reference Range Interpretation Comments MAGNESIUM (test code = 9862319821) 1.8 mg/dL 1.7-2.4 Lab Interpretation (test code = Normal 14202-7) [facility] [id number] 18:46:00 Test Item Value Reference Range Interpretation Comments ALBUMIN (test code = 4.0 g/dL 3.5-5.0 5658586027) CALCIUM (test code = 9.3 mg/dL 8.6-10.6 0193780014) CO2 TOTAL (test code = 32 mmol/L 23-31 H 8358888779) CREATININE (test code = 3.42 mg/dL 0.50-1.04 H 5080799368) GLUCOSE (test code = 193 mg/dL 70-110 H 7012288490) K (test code = 4.4 mmol/L 3.5-5.0 2110183619) NA (test code = 132 mmol/L 135-145 L 1012031809) BUN (test code = 82 mg/dL 7-23 H 1914565074) PHOSPHORUS (test code = 4.5 mg/dL 2.5-5.0 2471465839) eGFR (test code = mL/min/1.73m2 3338850271) INDIRA (test code = INDIRA) Association of [...] tests). Lab Interpretation Abnormal (test code = 44348-6) [facility] [id number] 18:45:40 Test Item Value Reference Range Interpretation Comments URIC ACID (test code = 1000141337) 13.7 mg/dL 2.9-6.0 H Lab Interpretation (test code = Abnormal 37000-2) [facility] WITH [id number] 18:07:59 Test Item Value Reference Range Interpretation Comments WBC (test code = See_Comment [Automated 8390-2) message] The sy stem which generated this [...] RDW-SD (test code = 46.8 fL 39.0-49.9 60600-4) RDW-CV (test code = 14.0 % 12.0-15.5 788-0) PLT (test code = See_Comment [Automated 777-3) message] The sy stem which generated this result transmitted reference range : 166 - 358 10*3/ ?L. The reference r lucille was not used to interpret this result as normal/abnormal . MPV (test code = 11.7 fL 9.5-12.9 18525-5) NRBC/100 WBC (test See_Comment [Automat ed code = 2774539730) message] The system which generated this result transmitted reference range : 0.0 - 10.0 /100 WBCs. The refer ence range was not u sed to interpret th is result as normal/abnormal . NRBC x10^3 (test code <0.01 See_Comment [Auto mated = 5655980158) message] The s ystem which generated this result transmitted reference range : 10*3/?L. The reference range was not used to interpret this result as normal/abnormal . GRAN MAT (NEUT) % 72.3 % (test code = 770-8) IMM GRAN % (test code 0.50 % = 7720771719) LYMPH % (test code = 15.6 % 736-9) MONO % (test code = 6.5 % 5905-5) EOS % (test code = 4.7 % 713-8) BASO % (test code = 0.4 % 706-2) GRAN MAT x10^3(ANC) 6.99 10*3/uL 1.88-7.09 (test code = 5433997217) IMM GRAN x10^3 (test 0.05 10*3/uL 0.00-0.06 code = 6441442017) LYMPH x10^3 (test code 1.51 10*3/uL 1.32-3.29 = 731-0) MONO x10^3 (test code 0.63 10*3/uL 0.33-0.92 = 742-7) EOS x10^3 (test code = 0.45 10*3/uL 0.03-0.39 H 711-2) BASO x10^3 (test code 0.04 10*3/uL 0.01-0.07 = 704-7) Lab Interpretation Abnormal (test code = 61076-5) [facility] 13:34:05 Test Item Value Reference Range Interpretation Comments POCT GLU (test code = 2339845620) 137 mg/dL 70-110 H Lab Interpretation (test code = Abnormal 74770-4) [facility] METABOLIC PANEL (NA, K, CL, CO2, GLUCOSE, BUN, CREATININE, CA)2021-05-04 13:21:05 Test Item Value Reference Range Interpretation Comments NA (test code = 133 mmol/L 135-145 L 5346546760) K (test code = 3.8 mmol/L 3.5-5.0 3045367070) CL (test code = 98 mmol/L 98-108 4004169312) CO2 TOTAL (test code = 26 mmol/L 23-31 3872442735) AGAP (test code = 2-16 5218834177) BUN (test code = 103 mg/dL 7-23 H 4913308309) GLUCOSE (test code = 134 mg/dL 70-110 H 2553524422) CREATININE (test code = 3.88 mg/dL 0.50-1.04 H 0299589171) CALCIUM (test code = 8.3 mg/dL 8.6-10.6 L 0049430405) eGFR (test code = mL/min/1.73m2 5114182300) INDIRA (test code = INDIRA) Association of [...] tests). Lab Interpretation Abnormal (test code = 98102-2) [facility] GLUCOSE (AUTOMATED)2021-05-04 06:30:37 Test Item Value Reference Range Interpretation Comments POCT GLU (test code = 8549809695) 244 mg/dL 70-110 H Lab Interpretation (test code = Abnormal 86620-1) [facility] GLUCOSE (AUTOMATED)2021-05-04 01:22:49 Test Item Value Reference Range Interpretation Comments POCT GLU (test code = 7941882688) 295 mg/dL 70-110 H Lab Interpretation (test code = Abnormal 21174-1) [facility] GLUCOSE (AUTOMATED)2021-05-03 22:18:16 Test Item Value Reference Range Interpretation Comments POCT GLU (test code = 3663084330) 309 mg/dL 70-110 H Lab Interpretation (test code = Abnormal 46940-2) [facility] GLUCOSE (AUTOMATED)2021-05-03 18:28:39 Test Item Value Reference Range Interpretation Comments POCT GLU (test code = 6502896817) 274 mg/dL 70-110 H Lab Interpretation (test code = Abnormal 26730-2) [facility] GLUCOSE (AUTOMATED)2021-05-03 14:15:50 Test Item Value Reference Range Interpretation Comments POCT GLU (test code = 8898612851) 147 mg/dL 70-110 H Lab Interpretation (test code = Abnormal 26771-7) [facility]AL [id number] 13:54:02 Test Item Value Reference Range Interpretation Comments NT-proBNP (test code 58759 pg/mL See_Comment H [Autom ated = 5881266614) message] The system which generated this result transmitted reference range : <=125. The reference range was not used to interpret this result as normal/abnormal . INDIRA (test code = INDIRA) Biotin has been reported to cause a negative bias, interpret results relative to patient's use of biotin. Lab Interpretation Abnormal (test code = 42638-9) [facility] METABOLIC PANEL (NA, K, CL, CO2, GLUCOSE, BUN, CREATININE, CA)2021-05-03 13:12:28 Test Item Value Reference Range Interpretation Comments NA (test code = 132 mmol/L 135-145 L 5303140129) K (test code = 4.2 mmol/L 3.5-5.0 8181259708) CL (test code = 101 mmol/L 98-108 7014769577) CO2 TOTAL (test code = 23 mmol/L 23-31 5945042369) AGAP (test code = 2-16 1953552863) BUN (test code = 96 mg/dL 7-23 H 4971800804) GLUCOSE (test code = 147 mg/dL 70-110 H 8531318158) CREATININE (test code = 3.70 mg/dL 0.50-1.04 H 7807273540) CALCIUM (test code = 8.3 mg/dL 8.6-10.6 L 0593430222) eGFR (test code = mL/min/1.73m2 1949575240) INDIRA (test code = INDIRA) Association of [...] tests). Lab Interpretation Abnormal (test code = 89659-9) [facility] WITH [id number] 12:05:23 Test Item Value Reference Range Interpretation [...] RDW-SD (test code = 47.8 fL 39.0-49.9 41012-7) RDW-CV (test code = 14.5 % 12.0-15.5 788-0) PLT (test code = See_Comment [Automated 777-3) message] The sy stem which generated this result transmitted reference range : 166 - 358 10*3/ ?L. The reference r lucille was not used to interpret this result as normal/abnormal . MPV (test code = 11.9 fL 9.5-12.9 78988-2) NRBC/100 WBC (test See_Comment [Automat ed code = 6954878141) message] The system which generated this result transmitted reference range : 0.0 - 10.0 /100 WBCs. The refer ence range was not u sed to interpret th is result as normal/abnormal . NRBC x10^3 (test code See_Comment [Auto mated = 6472980887) message] The s ystem which generated this result transmitted reference range : 10*3/?L. The reference range was not used to interpret this result as normal/abnormal . GRAN MAT (NEUT) % 78.9 % (test code = 770-8) IMM GRAN % (test code 0.50 % = 1025001195) LYMPH % (test code = 12.8 % 736-9) MONO % (test code = 7.7 % 5905-5) EOS % (test code = 0.0 % 713-8) BASO % (test code = 0.1 % 706-2) GRAN MAT x10^3(ANC) 5.84 10*3/uL 1.88-7.09 (test code = 3632867465) IMM GRAN x10^3 (test 0.04 10*3/uL 0.00-0.06 code = 1273874702) LYMPH x10^3 (test code 0.95 10*3/uL 1.32-3.29 L = 731-0) MONO x10^3 (test code 0.57 10*3/uL 0.33-0.92 = 742-7) EOS x10^3 (test code = <0.03 0.03-0.39 L 711-2) BASO x10^3 (test code <0.03 0.01-0.07 = 704-7) Lab Interpretation Abnormal (test code = 88763-5) [facility] GLUCOSE (AUTOMATED)2021-05-03 11:00:31 Test Item Value Reference Range Interpretation Comments POCT GLU (test code = 147 mg/dL 70-110 H Notifi ed Provider [id number]) Lab Interpretation (test Abnormal code = 38878-1) [facility] GLUCOSE (AUTOMATED)2021-05-03 06:32:35 Test Item Value Reference Range Interpretation Comments POCT GLU (test code = 255 mg/dL 70-110 H Notifi ed Provider 0268891154) Lab Interpretation (test Abnormal code = 41216-0) [facility] GLUCOSE (AUTOMATED)2021-05-03 02:38:08 Test Item Value Reference Range Interpretation Comments POCT GLU (test code = 3140514248) 300 mg/dL 70-110 H Lab Interpretation (test code = Abnormal 43940-5) [facility] GLUCOSE (AUTOMATED)2021-05-02 22:57:17 Test Item Value Reference Range Interpretation Comments POCT GLU (test code = 6841699469) 380 mg/dL 70-110 H Lab Interpretation (test code = Abnormal 30886-9) [facility] 18:00:55 Test Item Value Reference Range Interpretation Comments POCT GLU (test code = 0959249777) 350 mg/dL 70-110 H Lab Interpretation (test code = Abnormal 46970-7) [facility] CenterIN[facility] PTH CALCIUM [id number] 17:49:16 Test Item Value Reference Range Interpretation Comments PTH-INTACT (test code = 278.6 pg/mL 12.0-88.0 H 4181550942) PTH-CA Interpretation Furthe r clinical (test code = 0343816679) rafael a needed for interpretation. CALCIUM (test code = 8.0 mg/dL 8.6-10.6 L 6332490817) Lab Interpretation (test Abnormal code = 92092-9) [facility] CenterN-TERMINAL [id number] 15:36:16 Test Item Value Reference Range Interpretation Comments NT-proBNP (test code 89573 pg/mL See_Comment H [Autom ated = 9264253340) message] The system which generated this result transmitted reference range : <=125. The reference range was not used to interpret this result as normal/abnormal . INDIRA (test code = INDIRA) Biotin has been reported to cause a negative bias, interpret results relative to patient's use of biotin. Lab Interpretation Abnormal (test code = 10288-2) [facility] CenterFerritin [id number] 15:28:38 Test Item Value Reference Range Interpretation Comments FERRITIN (test code = 579.0 ng/mL 11.0-264.0 H 7776720721) INDIRA (test code = INDIRA) Biotin has been reported to cause a negative bias, interpret results relative to patient's use of biotin. Lab Interpretation (test Abnormal code = 66721-4) [facility] CenterTHYROID STIMULATING [id number] 15:24:40 Test Item Value Reference Range Interpretation Comments TSH (test code = See_Comment L [Automated message] 4727719619) The system [employer] generated this result transmitted ref erence range: 0.45 - 4 .70 mIU/L. The refe rence range was not u sed to interpret this result as normal/abnor mal. Lab Interpretation (test Abnormal code = 59530-2) [facility] CenterTROPONIN [id number] 15:06:20 Test Item Value Reference Interpretation Comments Range TROPONIN I (test 0.070 ng/mL See_Comment H [Automated code = 0663306184) message] The system which generated this result [...] biotin. Lab Interpretation Abnormal (test code = 35935-3) [facility] CenterMAGNESIUM2022-01-08 14:54:15 Test Item Value Reference Range Interpretation Comments MAGNESIUM (test code = 9071753781) 2.3 mg/dL 1.7-2.4 Lab Interpretation (test code = Normal 52501-0) [facility] CenterCOMP. METABOLIC PANEL (97236)2021-05-02 14:53:55 Test Item Value Reference Range Interpretation Comments NA (test code = 131 mmol/L 135-145 L 4930672078) K (test code = 5.3 mmol/L 3.5-5.0 H 2881560786) CL (test code = 105 mmol/L 98-108 9897225704) CO2 TOTAL (test code = 17 mmol/L 23-31 L 0407259903) AGAP (test code = 2-16 8990228018) BUN (test code = 82 mg/dL 7-23 H 3057583043) GLUCOSE (test code = 235 mg/dL 70-110 H 9908079223) CREATININE (test code = 3.48 mg/dL 0.50-1.04 H 6489917781) TOTAL BILI (test code = 0.3 mg/dL 0.1-1.7 1756870477) CALCIUM (test code = 8.0 mg/dL 8.6-10.6 L 6766742640) T PROTEIN (test code = 5.9 g/dL 6.3-8.2 L 6489265977) ALBUMIN (test code = 2.9 g/dL 3.5-5.0 L 7028762628) ALK PHOS (test code = 116 U/L 34-122 8154332738) ALTv (test code = 122 U/L 5-35 H 1742-6) AST(SGOT) (test code = 45 U/L 13-40 H 4786255147) eGFR (test code = mL/min/1.73m2 7613756735) INDIRA (test code = INDIRA) Association of [...] tests). Lab Interpretation Abnormal (test code = 59508-3) [facility] CenterPHOSPHORUS2022-01-08 14:53:55 Test Item Value Reference Range Interpretation Comments PHOSPHORUS (test code = 1433469825) 5.2 mg/dL 2.5-5.0 H Lab Interpretation (test code = Abnormal 68755-2) [facility] [id number] 14:53:35 Test Item Value Reference Range Interpretation Comments IRON (test code = 6540302896) 42 ug/dL 50-160 L Lab Interpretation (test code = Abnormal 72700-4) [facility] IRON BINDING [id number] 14:32:14 Test Item Value Reference Range Interpretation Comments TIBC (test code = 7387414300) 203 ug/dL 250-410 L Lab Interpretation (test code = Abnormal 02386-7) [facility] GLUCOSE (AUTOMATED)2021-05-02 13:47:04 Test Item Value Reference Range Interpretation Comments POCT GLU (test code = 6366657739) 257 mg/dL 70-110 H Lab Interpretation (test code = Abnormal 51832-6) [facility] WITH [id number] 13:08:09 Test Item Value Reference Range Interpretation [...] RDW-SD (test code = 48.2 fL 39.0-49.9 57801-6) RDW-CV (test code = 14.6 % 12.0-15.5 788-0) PLT (test code = See_Comment [Automated 777-3) message] The sy stem which generated this result transmitted reference range : 166 - 358 10*3/ ?L. The reference r lucille was not used to interpret this result as normal/abnormal . MPV (test code = 12.3 fL 9.5-12.9 68405-9) NRBC/100 WBC (test See_Comment [Automat ed code = 0239754950) message] The system which generated this result transmitted reference range : 0.0 - 10.0 /100 WBCs. The refer ence range was not u sed to interpret th is result as normal/abnormal . NRBC x10^3 (test code See_Comment [Auto mated = 6748873870) message] The s ystem which generated this result transmitted reference range : 10*3/?L. The reference range was not used to interpret this result as normal/abnormal . GRAN MAT (NEUT) % 78.4 % (test code = 770-8) IMM GRAN % (test code 0.80 % = 3192787715) LYMPH % (test code = 13.1 % 736-9) MONO % (test code = 7.5 % 5905-5) EOS % (test code = 0.0 % 713-8) BASO % (test code = 0.2 % 706-2) GRAN MAT x10^3(ANC) 5.01 10*3/uL 1.88-7.09 (test code = 2617906737) IMM GRAN x10^3 (test 0.05 10*3/uL 0.00-0.06 code = 2543946164) LYMPH x10^3 (test code 0.84 10*3/uL 1.32-3.29 [...] (test 2+ See_Comment [Automa alex code = 91474-3) message] The system which generated this result transmitted reference range : 2+. The referen ce range was not u sed to interpret th is result as normal/abnormal . SCHISTOCYTES (test 1+ A code = 800-3) Lab Interpretation Abnormal (test code = 19961-8) [facility] GLUCOSE (AUTOMATED)2021-05-02 08:11:51 Test Item Value Reference Range Interpretation Comments POCT GLU (test code = 251 mg/dL 70-110 H Notifi ed Provider 4983541622) Lab Interpretation (test Abnormal code = 54724-7) [facility] GLUCOSE (AUTOMATED)2021-05-02 02:45:02 Test Item Value Reference Range Interpretation Comments POCT GLU (test code = 4040644373) 341 mg/dL 70-110 H Lab Interpretation (test code = Abnormal 53768-0) [facility] CenterVITAMIN D, [id number] 00:20:17 Test Item Value Reference Range Interpretation Comments VIT D 25OH (test code = <13 25-80 L 58263-8) INDIRA (test code = INDIRA) Deficiency: <20 ng/mLInsufficiency: 20-24 ng/mLOptimal: 25-80 ng/mL Lab Interpretation (test Abnormal code = 31495-2) [facility] GLUCOSE (AUTOMATED)2021-05-01 22:21:36 Test Item Value Reference Range Interpretation Comments POCT GLU (test code = 0710776719) 335 mg/dL 70-110 H Lab Interpretation (test code = Abnormal 04737-5) [facility] CenterPHOSPHORUS2022-[facility]-07 17:15:46 Test Item Value Reference Range Interpretation Comments PHOSPHORUS (test code = 0094164055) 5.6 mg/dL 2.5-5.0 H Lab Interpretation (test code = Abnormal 85407-2) [facility] CenterCREATINE [id number] 17:15:26 Test Item Value Reference Range Interpretation Comments CK (test code = 4730380184) 80 U/L 33-194 Lab Interpretation (test code = Normal 68121-7) [facility] GLUCOSE (AUTOMATED)2021-05-01 17:10:01 Test Item Value Reference Range Interpretation Comments POCT GLU (test code = 9128545141) 229 mg/dL 70-110 H Lab Interpretation (test code = Abnormal 04586-8) [facility] CenterN-TERMINAL [id number] 16:04:24 Test Item Value Reference Range Interpretation Comments NT-proBNP (test code 24859 pg/mL See_Comment H [Autom ated = 6359390601) message] The system which generated this result transmitted reference range : <=125. The reference range was not used to interpret this result as normal/abnormal . INDIRA (test code = INDIRA) Biotin has been reported to cause a negative bias, interpret results relative to patient's use of biotin. Lab Interpretation Abnormal (test code = 20699-1) [facility] CenterTROPONIN [id number] 15:24:34 Test Item Value Reference Interpretation Comments Range TROPONIN I (test 0.082 ng/mL See_Comment H [Automated code = 7371229331) message] The system which generated this result [...] biotin. Lab Interpretation Abnormal (test code = 07537-6) [facility] GLUCOSE (AUTOMATED)2021-05-01 13:42:17 Test Item Value Reference Range Interpretation Comments POCT GLU (test code = 7839638752) 178 mg/dL 70-110 H Lab Interpretation (test code = Abnormal 01704-0) [facility] CenterMagnesium [id number] 12:36:00 Test Item Value Reference Range Interpretation Comments MAGNESIUM (test code = 1302335448) 2.5 mg/dL 1.7-2.4 H Lab Interpretation (test code = Abnormal 04347-0) [facility] CenterHEPATIC FUNCTION PANEL (79300) (ALB,T.PRO,BILI T,BU/BC,ALT,AST,ALK PHOS)2021-05-01 12:36:00 Test Item Value Reference Range Interpretation Comments TOTAL BILI (test code = 9418844584) 0.4 mg/dL 0.1-1.1 BILI UNCON (test code = 5366279974) 0.0 mg/dL 0.1-1.1 L BILI CONJ (test code = 4246894264) 0.0 mg/dL 0.0-0.3 T PROTEIN (test code = 5247783709) 6.0 g/dL 6.3-8.2 L ALBUMIN (test code = 1572771395) 2.9 g/dL 3.5-5.0 L ALK PHOS (test code = 7389018471) 112 U/L 34-122 ALTv (test code = 1742-6) 146 U/L 5-35 H AST(SGOT) (test code = 9266156525) 77 U/L 13-40 H Lab Interpretation (test code = Abnormal 97847-7) [facility] (NA, K, CL, CO2, GLUCOSE, BUN, CREATININE, CA)2021-05-01 12:35:45 Test Item Value Reference Range Interpretation Comments NA (test code = 135 mmol/L 135-145 5282493721) K (test code = 5.5 mmol/L 3.5-5.0 H 4742781178) CL (test code = 110 mmol/L 98-108 H 2601450959) CO2 TOTAL (test code = 17 mmol/L 23-31 L 7447206316) AGAP (test code = 2-16 4090283951) BUN (test code = 66 mg/dL 7-23 H 2947849852) GLUCOSE (test code = 169 mg/dL 70-110 H 4130696131) CREATININE (test code = 3.15 mg/dL 0.50-1.04 H 2973004304) CALCIUM (test code = 8.0 mg/dL 8.6-10.6 L 6081720316) eGFR (test code = mL/min/1.73m2 8628139160) INDIRA (test code = INDIRA) Association of [...] tests). Lab Interpretation Abnormal (test code = 26078-9) [facility] CenterLIPASE2022-01-[facility] 12:35:45 Test Item Value Reference Range Interpretation Comments LIPASE (test code = 7214466360) 437 U/L 0-220 H Lab Interpretation (test code = Abnormal 96841-6) [facility] CenterCB with [id number] 12:10:14 Test Item Value Reference Range Interpretation [...] RDW-SD (test code = 49.1 fL 39.0-49.9 59431-1) RDW-CV (test code = 14.5 % 12.0-15.5 788-0) PLT (test code = See_Comment L [Automated 777-3) message] The sy stem which generated this result transmitted reference range : 166 - 358 10*3/ ?L. The reference r lucille was not used to interpret this result as normal/abnormal . MPV (test code = 12.3 fL 9.5-12.9 70751-1) NRBC/100 WBC (test See_Comment [Automat ed code = 4500435188) message] The system which generated this result transmitted reference range : 0.0 - 10.0 /100 WBCs. The refer ence range was not u sed to interpret th is result as normal/abnormal . NRBC x10^3 (test code See_Comment [Auto mated = 1498368349) message] The s ystem which generated this result transmitted reference range : 10*3/?L. The reference range was not used to interpret this result as normal/abnormal . GRAN MAT (NEUT) % 81.9 % (test code = 770-8) IMM GRAN % (test code 0.90 % = 2170621686) LYMPH % (test code = 11.3 % 736-9) MONO % (test code = 5.8 % 5905-5) EOS % (test code = 0.0 % 713-8) BASO % (test code = 0.1 % 706-2) GRAN MAT x10^3(ANC) 5.49 10*3/uL 1.88-7.09 (test code = [id number]) IMM GRAN x10^3 (test 0.06 10*3/uL 0.00-0.06 code = [id number]) LYMPH x10^3 (test code 0.76 10*3/uL 1.32-3.29 L = 731-0) MONO x10^3 (test code 0.39 10*3/uL 0.33-0.92 = 742-7) EOS x10^3 (test code = <0.03 0.03-0.39 L 711-2) BASO x10^3 (test code <0.03 0.01-0.07 = 704-7) Lab Interpretation Abnormal (test code = 49912-9) [facility] GLUCOSE (AUTOMATED)2021-05-01 03:05:41 Test Item Value Reference Range Interpretation Comments POCT GLU (test code = 1478283784) 217 mg/dL 70-110 H Lab Interpretation (test code = Abnormal 51893-2) [facility] (A1C)2021-04-30 23:47:17 Test Item Value Reference Range Interpretation Comments HGB A1C (test code = 6.2 % 4.0-5.7 H 4548-4) INDIRA (test code = INDIRA) Reference RangesNormal: <5.7%Prediabetes: 5.7 - 6.4%Diabetes: > 6.5% Lab Interpretation (test Abnormal code = 80622-1) [facility] GLUCOSE (AUTOMATED)2021-04-30 23:10:21 Test Item Value Reference Range Interpretation Comments POCT GLU (test code = 1891345617) 258 mg/dL 70-110 H Lab Interpretation (test code = Abnormal 41305-9) [facility] [id number] 22:27:01 Test Item Value Reference Interpretation Comments Range TROPONIN I (test 0.085 ng/mL See_Comment H [Automated code = 5594539369) message] The system which generated this result [...] biotin. Lab Interpretation Abnormal (test code = 68665-1) [facility] CenterL[facility] (64534)(TOTAL CHOLESTEROL, TRIGLYCERIDES, HDL)2021-04-30 21:27:24 Test Item Value Reference Range Interpretation Comments CHOL (test code = 102 mg/dL 120-200 L 9732532422) HDL (test code = 21 mg/dL >50 L 8377798855) HDLC RATIO (test code = See_Comment H [Au tomated message] 2301274625) The system [employer] generated this result transmit alex reference range : <=4.5. The refe rence range was not u sed to interpret th is result as normal/abnormal . TRIG (test code = 136 mg/dL 30-170 2283544730) LDL CHOL (test code = 54 mg/dL See_Comment [Auto mated message] 19435-1) The system [employer] generated this result transmit alex reference range : <=160. The refe rence range was not u sed to interpret th is result as normal/abnormal . VLDL (test code = 27 mg/dL 5-60 4995025950) Lab Interpretation (test Abnormal code = 40325-6) [facility]COMP[facility]OLIC PANEL (97225)2021-04-30 13:58:33 Test Item Value Reference Range Interpretation Comments NA (test code = 133 mmol/L 135-145 L 3270317633) K (test code = 5.1 mmol/L 3.5-5.0 H 6193458652) CL (test code = 108 mmol/L 98-108 9991214877) CO2 TOTAL (test code = 18 mmol/L 23-31 L 5050612599) AGAP (test code = 2-16 6809796452) BUN (test code = 63 mg/dL 7-23 H 3876893406) GLUCOSE (test code = 156 mg/dL 70-110 H 9979615050) CREATININE (test code = 3.53 mg/dL 0.50-1.04 H 3622254281) TOTAL BILI (test code = 0.4 mg/dL 0.1-1.4 3658899863) CALCIUM (test code = 7.7 mg/dL 8.6-10.6 L 4903829507) T PROTEIN (test code = 6.5 g/dL 6.3-8.2 4837663885) ALBUMIN (test code = 3.2 g/dL 3.5-5.0 L 6079533976) ALK PHOS (test code = 137 U/L 34-122 H 5667943499) ALTv (test code = 187 U/L 5-35 H 1742-6) AST(SGOT) (test code = 143 U/L 13-40 H 7819619492) eGFR (test code = mL/min/1.73m2 5097263954) INDIRA (test code = INDIRA) Association of [...] tests). Lab Interpretation Abnormal (test code = 26569-3) [facility] CenterAB[facility] Confirmation (Lab Only)2021-04-30 13:54:34 Test Item Value Reference Range Interpretation Comments ABO & RH (test code O Positive Performe d at [facility] = 20) Laboratory Serv [facility] Blood Bank1 [address] [place] [phone] Free: [phone] A No. [id number] [facility]TROP[facility] [id number] 13:04:30 Test Item Value Reference Interpretation Comments Range TROPONIN I (test 0.116 ng/mL See_Comment H [Automated code = 9904213524) message] The system which generated this result [...] biotin. Lab Interpretation Abnormal (test code = 65266-8) [facility] CenterN-TERMINAL [id number] 13:01:29 Test Item Value Reference Range Interpretation Comments NT-proBNP (test code 48825 pg/mL See_Comment H [Autom ated = 9542252143) message] The system which generated this result transmitted reference range : <=125. The reference range was not used to interpret this result as normal/abnormal . INDIRA (test code = INDIRA) Biotin has been reported to cause a negative bias, interpret results relative to patient's use of biotin. Lab Interpretation Abnormal (test code = 43906-0) [facility] CenterType and Screen - ONCE [id number] 13:00:01 Test Item Value Reference Range Interpretation Comments ABO & RH (test code O Positive Performe d at [facility] = 20) Laboratory Serv [facility] [address] [place], [place] [phone] Free: [phone] A No. [id number] IAT (test code = Negative Performed a t [facility] 1185) Laboratory Serv [facility] [address] [place] [phone] Free: [phone] A No. [id number] [facility] CenterCBC WITH [id number] 12:54:12 Test Item Value Reference Range Interpretation Comments WBC (test code = See_Comment [Automated 1833-2) message] The sy stem which generated this result transmitted reference range : 4.30 - 11.10 10*3/?L. The reference range was not used to interpret this result as normal/abnormal . RBC (test code = See_Comment L [Automated 209-8) message] The sy stem which generated this [...] RDW-SD (test code = 48.7 fL 39.0-49.9 32993-6) RDW-CV (test code = 14.6 % 12.0-15.5 788-0) PLT (test code = See_Comment [Automated 677-3) message] The sy stem which generated this result transmitted reference range : 166 - 358 10*3/ ?L. The reference r lucille was not used to interpret this result as normal/abnormal . MPV (test code = 12.4 fL 9.5-12.9 75465-2) NRBC/100 WBC (test See_Comment [Automat ed code = 1200616338) message] The system which generated this result transmitted reference range : 0.0 - 10.0 /100 WBCs. The refer ence range was not u sed to interpret th is result as normal/abnormal . NRBC x10^3 (test code See_Comment [Auto mated = 8004689068) message] The s ystem which generated this result transmitted reference range : 10*3/?L. The reference range was not used to interpret this result as normal/abnormal . GRAN MAT (NEUT) % 85.2 % (test code = 770-8) IMM GRAN % (test code 1.00 % = 4439144870) LYMPH % (test code = 8.5 % 736-9) MONO % (test code = 4.6 % 5905-5) EOS % (test code = 0.5 % 713-8) BASO % (test code = 0.2 % 706-2) GRAN MAT x10^3(ANC) 7.02 10*3/uL 1.88-7.09 (test code = 6962254883) IMM GRAN x10^3 (test 0.08 10*3/uL 0.00-0.06 H code = 8875475861) LYMPH x10^3 (test code 0.70 10*3/uL 1.32-3.29 L = 731-0) MONO x10^3 (test code 0.38 10*3/uL 0.33-0.92 = 742-7) EOS x10^3 (test code = 0.04 10*3/uL 0.03-0.39 711-2) BASO x10^3 (test code <0.03 0.01-0.07 = 704-7) Lab Interpretation Abnormal (test code = 54120-9) [facility] CenterLIPASE2022-[facility] 12:52:27 Test Item Value Reference Range Interpretation Comments LIPASE (test code = 7756951737) 566 U/L 0-220 H Lab Interpretation (test code = Abnormal 09164-9) [facility] CenterACTIVATED PARTIAL THRMPLAS [id number] 12:41:03 Test Item Value Reference Range Interpretation Comments APTT Patient (test See_Comment [Automat ed code = 3173-2) message] The system which generated this result transmitted reference range : 23 - 38 Seconds . The reference range was not used to interpr et this result as normal/abnormal . INDIRA (test code = INDIRA) The [facility] patient population mean normal value for aPTT is 30 seconds. Lab Interpretation Normal (test code = 29629-7) [facility] CenterPROTHROMBIN TIME / [id number] 12:35:26 Test Item Value Reference Range Interpretation [...] tions. Lab Interpretation (test Normal code = 10860-5) [facility]"
--- NOTE | 2022-10-25 11:41 | RAD REPORT ---
EXAM DESCRIPTION: CT - Head Brain Wo Cont - 10/25/2022 11:28 am CLINICAL HISTORY: WEAKNESS COMPARISON: No comparisons TECHNIQUE: Noncontrast head CT images were obtained without IV contrast. Multiplanar reformats were generated and reviewed. All CT scans are performed using dose optimization technique as appropriate and may include automated exposure control or mA/KV adjustment according to patient size. FINDINGS: No intracranial hemorrhage, mass, or edema. Midline structures are unremarkable. Normal ventricular caliber for age. Posada-white matter differentiation is preserved, without evidence of acute infarct. No abnormal extra- axial fluid collections. Mastoid air cells and visualized portions of the paranasal sinuses are clear. No acute bony findings. IMPRESSION: No evidence of an acute intracranial process.
[2022-10-25 12:10] LABS: Absolute Lymphocytes (CBC) 1.7 K/uL (0.7-4.9); Hematocrit 34.7 % (36.0-45.0); Lymphocytes % 21.2 % (15.3-44.8); MCV 95.4 fL (80-100); MPV 8.8 fL (7.6-11.3); RBC Red Blood Cell Count 3.63 M/uL (3.86-4.86)
--- NOTE | 2022-10-25 12:18 | RAD REPORT ---
EXAM DESCRIPTION: [facility] Single View10/25/2022 11:54 am CLINICAL HISTORY: CHEST PAIN COMPARISON: Chest Single View dated 11/09/2021; ABDOMEN ACUTE SERIES dated 02/19/2008; CHEST SINGLE V IEW dated 02/16/2008; CHEST SINGLE VIEW dated 02/12/2008 TECHNIQUE: Portable AP view of the chest. FINDINGS: Right IJ dialysis catheter in satisfactory position with tip projecting over the superior cavoatrial junction. Central interstitial prominence and perihilar fluffy opacities, progressive. Mod erate cardiomegaly. No pneumothorax or effusion. The mediastinal contours are unremarkable. IMPRESSION: Satisfactory positioning of right IJ dialysis catheter. Findings concerning for central edema or congestion.
[2022-10-25 14:12] LABS: Albumin 3.4 g/dL (3.4-5.0); Bilirubin Direct 0.1 mg/dL (0-0.2); Bilirubin Indirect, Calculated 0.3 mg/dL (0.2-0.8); Bilirubin Total 0.4 mg/dL (0.2-1.0); Magnesium 2.7 mg/dL (1.6-2.4); Potassium 4.6 mEq/L (3.5-5.1)
--- NOTE | 2022-10-25 16:14 | ER ---
Nurse's Notes [facility] [place] Name: Magalis Haywood Age: 62 yrs Sex: Female : 1960 Arrival Date: 10/25/2022 Time: 10:47 Bed 17 Private MD: Diagnosis: Hypotension, unspecified-During dialyisis;Idiopathic hypotension;End stage renal disease Presentation: 10/25 11:01 Chief complaint: Patient states: Numbness bilateral hands. Coronavirus screen: Vaccine os status: Patient reports receiving the 2nd dose of the covid vaccine. na Client denies travel out of the [place] in the last 14 days. At this time, the client does not indicate any symptoms associated with coronavirus-19. Ebola Screen: Patient negative for fever greater than or equal to 101.5 degrees Fahrenheit, and additional compatible Ebola Virus Disease symptoms. Initial Sepsis Screen: Does the patient meet any 2 criteria? No. Patient's initial sepsis screen is negative. Does the patient have a suspected source of infection? No. Patient's initial sepsis screen is negative. Risk Assessment: Do you want to hurt yourself or someone else? Patient reports no desire to harm self or others. Onset of symptoms was October 25, 2022. 11:01 Method Of Arrival: EMS: [facility] os 11:01 Acuity: MEI 3 os Triage Assessment: 11:08 General: Appears in no apparent distress. Behavior is calm, cooperative, appropriate os for age. Pain: Denies pain. Neuro: No deficits noted. Cardiovascular: No deficits noted. Respiratory: No deficits noted. - Immunization history:: Adult Immunizations up to date, Client reports receiving the 2nd dose of the Covid vaccine. - Social history:: Smoking status: Patient denies any tobacco usage or history of. Screenin:48 [facility] ED Fall Risk Assessment (Adult) History of falling in the last 3 months, os including since admission No falls in past 3 months (0 pts) Confusion or Disorientation No (0 pts) Intoxicated or Sedated No (0 pts) Impaired Gait No (0 pts) Mobility Assist Device Used No (0 pt) Altered Elimination No (0 pt) Score/Fall Risk Level 0 - 2 = Low Risk Oriented to surroundings. Abuse screen: Denies threats or abuse. Nutritional screening: No deficits noted. Tuberculosis screening: No symptoms or risk factors identified. Vital Signs: 11:01 BP 179 / 86; Pulse 58; Resp 16; Temp 98.1; Pulse Ox 98% ; Weight 83.91 kg; os 11:57 BP 159 / 62; Pulse 57; Resp 17; Pulse Ox 99% on R/A; os 13:48 BP 158 / 88; Pulse 81; Resp 18; Pulse Ox 97% on R/A; os 16:22 BP 155 / 88; Pulse 66; Resp 17; Pulse Ox 98% on R/A; os ED Course: 10:55 Patient arrived in ED. em1 10:55 Sam Alex MD is Attending Physician. kdr 11:01 Thom Islas, RN is Primary Nurse. os 11:07 Triage completed. os 11:20 Basic Metabolic Panel Sent. rs5 11:20 CBC with Diff Sent. rs5 11:20 LFT's Sent. rs5 11:20 Magnesium Sent. rs5 11:20 NT PRO-BNP Sent. rs5 11:20 Troponin HS Sent. rs5 11:28 CT Head Brain wo Cont In Process Unspecified. EDMS 11:44 Troponin HS Sent. os 11:44 NT PRO-BNP Sent. os 11:45 LFT's Sent. os 11:45 Magnesium Sent. os 11:45 CBC with Diff Sent. os 11:45 Basic Metabolic Panel Sent. os 11:55 XRAY Chest (1 view) In Process Unspecified. EDMS 13:49 No provider procedures requiring assistance completed. os 13:49 Arm band placed on. os 13:55 Troponin HS Sent. os 13:55 NT PRO-BNP Sent. os 13:55 Magnesium Sent. os 13:55 Basic Metabolic Panel Sent. os 13:55 LFT's Sent. os 16:22 IV discontinued. os Administered Medications: No medications were administered Outcome: 16:13 Discharge ordered by . kdr 16:22 Discharged to home ambulatory. os 16:22 Condition: improved 16:22 Discharge instructions given to patient, family, Instructed on discharge instructions, follow up and referral plans. 16:23 Patient left the ED. os Signatures: Dispatcher [employer] EDMS Sam Alex MD MD kdr Al Urban em1 GaylesmitairamdeanaJarod rs5 Thom Islas, RN RN os Corrections: (The following items were deleted from the chart) 11:08 11:07 PMHx: diabetes mellitus; os os PMHx: Hypertensive disorder; os os PMHx: Renal Disease; os os
--- NOTE | 2022-10-25 16:14 | EDPHYS ---
Physician Documentation [facility] Name: Magalis Haywood Age: 62 yrs Sex: Female : 1960 Arrival Date: 10/25/2022 Time: 10:47 Bed 17 Private MD: ED Physician Sam Alex HPI: 10/25 13:15 This 62 yrs old Female presents to ER via EMS with complaints of Hypotension kdr and arm numbness. 13:15 Patient was brought to the ED by EMS after experiencing low blood pressure and kdr bilateral arm numbness while on dialysis. Patient denies this happening before. Patient also complained of very slight chest discomfort. Patient is otherwise stable in the ED. Patient had no other acute symptoms nor do they appear acutely ill at this time.. Onset: The symptoms/episode began/occurred suddenly, just prior to arrival. Severity of symptoms: At their worst the symptoms were mild moderate just prior to arrival, in the emergency department the symptoms have resolved. The patient has not experienced similar symptoms in the past. The patient has been recently seen by a physician: the patient's primary care provider. - Immunization history:: Adult Immunizations up to date, Client reports receiving the 2nd dose of the Covid vaccine. - Social history:: Smoking status: Patient denies any tobacco usage or history of. ROS: 13:15 Constitutional: Negative for fever, chills, and weight loss, Eyes: Negative for injury, kdr pain, redness, and discharge, ENT: Negative for injury, pain, and discharge, Neck: Negative for injury, pain, and swelling, Respiratory: Negative for shortness of breath, cough, wheezing, and pleuritic chest pain, Abdomen/GI: Negative for abdominal pain, nausea, vomiting, diarrhea, and constipation, Back: Negative for injury and pain, : Negative for injury, bleeding, discharge, and swelling, MS/Extremity: Negative for injury and deformity, Skin: Negative for injury, rash, and discoloration, Psych: Negative for depression, anxiety, suicide ideation, homicidal ideation, and hallucinations, Allergy/Immunology: Negative for hives, rash, and allergies, Endocrine: Negative for neck swelling, polydipsia, polyuria, polyphagia, and marked weight changes, Hematologic/Lymphatic: Negative for swollen nodes, abnormal bleeding, and unusual bruising. 13:15 Cardiovascular: Positive for chest pain, Negative for edema, orthopnea, palpitations, paroxysmal nocturnal dyspnea. 13:15 Cardiovascular: Positive for kdr 13:15 Neuro: Positive for Transient bilateral arm numbness. Exam: 13:15 Constitutional: This is a well developed, well nourished patient who is awake, alert, kdr and in no acute distress. Head/Face: Normocephalic, atraumatic. Eyes: Pupils equal round and reactive to light, extra-ocular motions intact. Lids and lashes normal. Conjunctiva and sclera are non-icteric and not injected. Cornea within normal limits. Periorbital areas with no swelling, redness, or edema. Vital Signs: 11:01 BP 179 / 86; Pulse 58; Resp 16; Temp 98.1; Pulse Ox 98% ; Weight 83.91 kg; os 11:57 BP 159 / 62; Pulse 57; Resp 17; Pulse Ox 99% on R/A; os 13:48 BP 158 / 88; Pulse 81; Resp 18; Pulse Ox 97% on R/A; os 16:22 BP 155 / 88; Pulse 66; Resp 17; Pulse Ox 98% on R/A; os MDM: 14:07 Data reviewed: vital signs, nurses notes. ED course: Blood work still pending. kdr 16:13 Patient medically screened. [facility] 10/25 11:09 Order name: Basic Metabolic Panel; Complete Time: 15:59 [facility] 10/25 11:09 Order name: CBC with Diff; Complete Time: 13:37 [facility] 10/25 11:09 Order name: LFT's; Complete Time: 15:59 [facility] 10/25 11:09 Order name: Magnesium; Complete Time: 15:59 [facility] 10/25 11:09 Order name: NT PRO-BNP; Complete Time: 15:59 [facility] 10/25 11:09 Order name: Troponin HS; Complete Time: 15:59 [facility] 10/25 11:09 Order name: XRAY Chest (1 view); Complete Time: 13:37 kdr 10/25 11:16 Order name: CT Head Brain wo Cont; Complete Time: 11:55 kdr 10/25 11:09 Order name: EKG; Complete Time: 11:10 kdr 10/25 11:09 Order name: Cardiac monitoring; Complete Time: 11:15 [facility] 10/25 11:09 Order name: EKG - Nurse/Tech; Complete Time: 11:15 kdr 10/25 11:09 Order name: IV Saline Lock; Complete Time: 11:20 kdr 10/25 11:09 Order name: Labs collected and sent; Complete Time: :20 kdr 10/25 11:09 Order name: O2 Per Protocol; Complete Time: 11:15 kdr 10/25 11:09 Order name: O2 Sat Monitoring; Complete Time: 11:15 kdr 10/25 11:31 Order name: Labs - recollect needed: Recollect all labs please; Complete Time: 11:57 em1 10/25 12:28 Order name: Labs - recollect needed: recollect green top please; Complete Time: 12:59 em1 Administered Medications: No medications were administered Disposition Summary: 10/25/22 16:13 Discharge Ordered Location: Home kdr Problem: new kdr Symptoms: have improved kdr Condition: Stable kdr Diagnosis - Hypotension, unspecified - During dialyisis kdr - Idiopathic hypotension kdr - End stage renal disease kdr Followup: kdr - With: Private Physician - When: 2 - 3 days - Reason: If symptoms return, Further diagnostic work-up, Recheck today's complaints, Continuance of care, Re-evaluation by your physician Discharge Instructions: - Discharge Summary Sheet kdr - Dialysis kdr - Hypotension, Yyne-vr-Rwwo kdr - Hemodialysis, Care After kdr Forms: - Medication Reconciliation Form kdr - Thank You Letter kdr - [email or web address] kdr Signatures: Dispatcher [employer] Sam Blake MD MD kdr Wilmar, Al em1 Thom Islas, RN RN os Corrections: (The following items were deleted from the chart) 11: 11:07 PMHx: diabetes mellitus; os os : 11:07 PMHx: Hypertensive disorder; os os : 11:07 PMHx: Renal Disease; os os
[2022-10-25 16:29] VITALS: TEMP 98.1
[2022-10-25 16:34] VITALS: BP 155/88; O2SAT 98
--- NOTE | 2022-10-27 12:36 | EKG ---
Test Date: 2022-10-25 Test Time: 10:46:50 [employer]orescent Lighting Model Maker: MONICA MEASUREMENT RESULTS: Intervals: Rate: 60 CO: 156 QRSD: 112 QT: 472 QTc: 472 [place]: P: 59 CO: 156 QRS: -50 T: 267 INTERPRETIVE STATEMENTS: Normal sinus rhythm Left axis deviation Left ventricular hypertrophy with repolarization abnormality Abnormal ECG Compared to ECG 11/09/2021 15:38:19 Early repolarization now present ST (T wave) deviation no longer present Possible ischemia no longer present Electronically Signed On 10-27-22 12:33:43 CDT by Kulwinder Ledezma
== END 2022-10-25 16:23 | disposition home or self-care (01) ==
LOC: ER 10:47
DX: I95.0 Idiopathic hypotension (principal); N18.6 End stage renal disease; Z99.2 Dependence on renal dialysis; R20.0 Anesthesia of skin
CPT/HCPCS: 36415; 70450; 71045; 80048; 80076; 83735; 83880; 84484; 85025; 93005; 99284

== ENCOUNTER 2023-01-28 01:52 | Emergency (ER) | payer OTHER ==
--- OUTSIDE RECORDS SUMMARY | 2023-01-28 02:03 | XMS REPORT | Continuity of Care Document ---
:1960 Author Organization [facility] t Address [address] [place] [address] [address] [place] [address] Care Team Providers Name Role Phone Pcp, Patient Does Not Have A Primary Care Physician +[phone] Doctor Unassigned, [place] Attending Clinician Unavailable Lisette Enamorado MD Attending Clinician [phone] LISETTE ENAMORADO Attending Clinician Unavailable Annabel Valerio RN Attending Clinician Unavailable Rj Rosenthal MD Attending Clinician Hillary Antoine MD Attending Clinician Nelly Schultz MD Attending Clinician Jeffry ABEL, [facility] Attending Clinician Sonia Solorzano Attending Clinician CHAPIS GUPTA Attending Clinician Unavailable Link ABEL, Julianna MartinHMili Attending Clinician Pob, [facility] Attending Clinician Unavailable Rhoda Bray MD Attending Clinician RHODA BRAY Attending Clinician Unavailable Remy Denson MD Attending Clinician Aby Lennon DO Attending Clinician ABY LENNON Attending Clinician Unavailable LISETTE ENAMORADO Admitting Clinician Unavailable Lisette Enamorado MD Admitting Clinician [phone] Aby Lennon DO Admitting Clinician ABY LENNON [...] Added automatic ally from request for surgery [id number] Stage 4 Stage 4 Disease Active Univers chronic chronic 05-01 ity of kidney kidney 00:00: [place] disease disease 00 Medical Branch Essential Essential Disease Active Uni vers hypertensi hypertensi 05-01 it y of on on 00:00: Medical Branch Acute on Acute on Disease Active Unive rs chronic chronic 07 ity of systolic systolic 00:00: [place] and and 00 Medical diastolic diastolic Bran ch heart heart failure, failure, NYHA class NYHA class 3 3 Dyslipidem Dyslipidem Disease Active U nivers ia ia 05-01 ity of 00:00: [place] 00 Medical Branch Type 2 Type 2 Disease Active Univers diabetes diabetes 07 ity of mellitus mellitus 00:00: [place] with other with other 00 Me dical specified specified Bran ch complicati complicati on on COVID-19 COVID-19 Disease Active Unive rs 1-06 ity of 00:00: [place] 00 Medical Branch Obesity Obesity Disease Active Univers (BMI (BMI -06 ity of 30-39.9) 30-39.9) 00:00: Medical Branch LUGO LUGO Disease Active 2022-0 Univers (dyspnea (dyspnea 1-06 ity of on [...] Active Univers ALLERGIE Class ity of [facility] [place] [facility] Social History Social Habit Start Date Stop Date Quantity Comments Source Gender identity Universit y of [facility] Sexual orientation Univer sity of [place] [facility] History SDOH Social Unive rsity of Connections [facility] Med ical Together Branch History SDOH Social Unive rsity of Connections [facility] Medical Branch History SDOH Social Unive rsity of Connections [place] [facility] Membership Branch History SDOH Social Unive rsity of Connections [place] [facility] Meetings Branch History of Social 2022-11-30 2022-11-30 Univers ity of function 00:00:00 00:00:00 [place] [facility] Exposure to 2022-05-31 2022-06-10 Not sure University of SARS-CoV-2 (event) 00:00:00 09:37:00 [facility] Branch Alcohol intake 2022-05-25 2022-05-25 Ex-drinker [facility] 00:00:00 00:00:00 (finding) [place] [facility] History SDOH Social 2022-05-25 2022-05-25 3 Unive rsity of Connections Living 00:00:00 00:00:00 [place] [facility] History SDOH 2022-05-25 2022-05-25 1 University o f Financial 00:00:00 00:00:00 [place] [facility] History SDOH Food 2022-05-25 2022-05-25 3 Univers ity of Worry 00:00:00 00:00:00 [place] [facility] History SDOH Food 2022-05-25 2022-05-25 1 Univers ity of Scarcity 00:00:00 00:00:00 [place] [facility] History SDOH 2022-05-25 2022-05-25 1 University o f Transport Med 00:00:00 00:00:00 [place] [facility] al [facility] History SDOH 2022-05-25 2022-05-25 1 University o f Transport Non-Med 00:00:00 00:00:00 [place] M edical [facility] History SDOH 2022-05-04 2022-05-04 1 University o f Alcohol Frequency 00:00:00 00:00:00 [place] M edical [facility] History SDOH 2022-05-04 2022-05-04 0 University o f Alcohol Std Drinks 00:00:00 00:00:00 [place] [facility] History SDOH 2022-05-04 2022-05-04 1 University o f Alcohol Binge 00:00:00 00:00:00 [place] [facility] History SDCO Social 2022-05-04 2022-05-04 5 Unive rsity of Connections Phone 00:00:00 00:00:00 [facility] edical Branch History SDCO 2022-05-04 2022-05-04 0 University o f Physical Activity 00:00:00 00:00:00 [facility] edical DPW Branch History SDCO 2022-05-04 2022-05-04 0 University o f Physical Activity 00:00:00 00:00:00 [facility] edical MPS Branch Sex [birth year] At [birth year] Universit y of 00:00:00 00:00:00 [facility] Smoking Status Start Date Stop Date Source Never smoked tobacco [facility] Medications Ordered Filled Start Stop Current Ordering Indication Dosage Frequency Signature Comments Components Source Medication Medication Date Date Medication? Clinician (SIG) Name Name pantoprazol Yes [id number] 40mg Take 1 Univers e 40 mg EC 8-08 9103 tablet by ity of tablet 00:00: mouth 00 daily. Medical Branch losartan 25 Yes [id number] 50mg Take 2 Univers mg tablet 8-08 tablets by ity of 00:00: mouth 00 daily. Medical Branch furosemide Yes [id number] 80mg Take 1 Univers 80 mg 8-08 9103 tablet by ity of tablet 00:00: mouth [place] 00 every Medical morning Branch and evening. carvediloL Yes [id number] 25mg Take 1 Univers 25 mg 8-08 9103 tablet by ity of tablet 00:00: mouth 2 [place] 00 (two) Medical times Branch daily with meals. isosorbide 2023-0 Yes [id number] 30mg Take 1 Univers mononitrate 8-08 9103 tablet by ity of 30 mg 24 hr 00:00: mouth [place] tablet 00 daily. Medical Branch aspirin 81 2022-0 Yes [id number] 81mg Take 1 Univers mg chewable 8-08 9103 tablet by ity of tablet 00:00: mouth [place] 00 daily. Medical Branch pantoprazol 3-0 Yes [id number] 40mg Take 1 Univers e 40 mg EC 8-08 9103 tablet by ity of tablet 00:00: mouth [place] 00 daily. Medical Branch losartan 25 2022-0 Yes [id number] 50mg Take 2 Univers mg tablet 8-08 tablets by ity of 00:00: mouth [place] 00 daily. Medical Branch furosemide 2022-0 Yes [id number] 80mg Take 1 Univers 80 mg 8-08 9103 tablet by ity of tablet 00:00: mouth [place] 00 every Medical morning Branch and evening. carvediloL 3-0 Yes [id number] 25mg Take 1 Univers 25 mg 8-08 9103 tablet by ity of tablet 00:00: mouth 2 [place] 00 (two) Medical times Branch daily with meals. isosorbide 3-0 Yes [id number] 30mg Take 1 Univers mononitrate 8-08 9103 tablet by ity of 30 mg 24 hr 00:00: mouth [place] tablet 00 daily. Medical Branch aspirin 81 2022-0 Yes [id number] 81mg Take 1 Univers mg chewable 8-08 9103 tablet by ity of tablet 00:00: mouth [place] 00 daily. Medical Branch carvediloL 3-0 Yes [id number] 25mg Take 1 Univers 25 mg 3-30 9103 tablet by ity of tablet 00:00: mouth 2 [place] 00 (two) Medical times Branch daily with meals. furosemide 3-0 Yes [id number] 80mg Take 1 Univers 80 mg 3-30 9103 tablet by ity of tablet 00:00: mouth [place] 00 every Medical morning Branch and evening. isosorbide 2023-0 Yes [id number] 30mg Take 1 Univers mononitrate 3-30 9103 tablet by ity of 30 mg 24 hr 00:00: mouth [place] tablet 00 daily. Medical Branch pantoprazol 2022-0 Yes [id number] 40mg Take 1 Univers e 40 mg EC 330 9103 tablet by ity of tablet 00:00: mouth [place] 00 daily. Medical Branch aspirin 81 2022-0 Yes [id number] 81mg Take 1 Univers mg chewable 3-30 9103 tablet by ity of tablet 00:00: mouth [place] 00 daily. Medical Branch losartan 25 2022-0 Yes [id number] 50mg Take 2 Univers mg tablet 3-03 tablets by ity of 00:00: mouth [place] 00 daily. Medical Branch insulin 2022-0 Yes [id number] 10U inject 10 U nivers glargine 2-02 Units ity of 100 unit/mL 00:00: under the [place] injection 00 skin every Medi jeremiah 24 Branch (twenty-fo ur) hours. insulin 2022-0 Yes [id number] 10U inject 10 U nivers glargine 2-02 Units ity of 100 unit/mL 00:00: under the [place] injection 00 skin every Medi jeremiah 24 Branch (twenty-fo ur) hours. insulin 0 Yes [id number] 10U inject 10 U nivers glargine 2-02 Units ity of 100 unit/mL 00:00: under the [place] injection 00 skin every Medi jeremiah 24 Branch (twenty-fo ur) hours. insulin 0 Yes [id number] 10U inject 10 U nivers glargine 2-02 Units ity of 100 unit/mL 00:00: under the [place] injection 00 skin every Medi jeremiah 24 Branch (twenty-fo ur) hours. insulin 2022-0 Yes [id number] 10U inject 10 U nivers glargine 2-02 Units ity of 100 unit/mL 00:00: under the [place] injection 00 skin every Medi jeremiah 24 Branch (twenty-fo ur) hours. insulin 2022-0 Yes [id number] 10U inject 10 U nivers glargine 2-02 Units ity of 100 unit/mL 00:00: under the [place] injection 00 skin every Medi jeremiah 24 Branch (twenty-fo ur) hours. insulin 2022-0 Yes [id number] 10U inject 10 U nivers glargine 2-02 Units ity of 100 unit/mL 00:00: under the [place] injection 00 skin every Medi jeremiah 24 Branch (twenty-fo ur) hours. insulin Yes [id number] 10U inject 10 U nivers glargine 2-02 Units ity of 100 unit/mL 00:00: under the [place] injection 00 skin every Medi jeremiah 24 Branch (twenty-fo ur) hours. NaCl 0.9% 2022- No 5mL 5 mL, Slow U nivers (NS) 05-26 IV Push, ity of injection 5 22:30: 01:00 ONCE, 1 [place] mL 00 :00 dose, On Medical Tue05/26/22 Branch at 1630, Routine heparin Yes 2000U 2,000 Univers 1,000 2-01 Units, ity of unit/mL 22:22: Slow IV [place] injection 20 Push, PRN Medic al 2,000 Units - SEE Branch INSTRUCTIO NS, Starting on Tue05/26/22 at 1622, Until Discontinu ed, Routine, dialysis catheter care insulin Yes 2U 2 Units, Univer s glargine 05-26 Subcutaneo ity o f (LANTUS 14:00: us, Q24H, [place] U-100) 00 First dose Medical injection 2 on Tue Branch Units 05/26/22 at 0800, Until Discontinu ed, Routine losartan 25 2022- No [id number] 75mg Take 3 Univers mg tablet 05-26 tablets by ity of 00:00: 05:59 mouth [place] 00 :00 daily for Medical 30 days. Branch insulin 2022- No [id number] 5U inject 5 Univers lispro, 05-26 9103 Units ity of human, 00:00: 05:59 under the [place] (ADMELOG 00 :00 skin 3 Medical U-100 (three) Branch INSULIN times LISPRO) 100 daily unit/mL before injection meals for 30 days. losartan 25 2022- No [id number] 75mg Take 3 Univers mg tablet 05-26 tablets by ity of 00:00: 05:59 mouth [place] 00 :00 daily for Medical 30 days. Branch insulin 2022- No [id number] 5U inject 5 Univers lispro, 05-26 9103 Units ity of human, 00:00: 05:59 under the [place] (ADMELOG 00 :00 skin 3 Medical U-100 (three) Branch INSULIN times LISPRO) 100 daily unit/mL before injection meals for 30 days. losartan 25 2022- No [id number] 75mg Take 3 Univers mg tablet 05-26 tablets by ity of 00:00: 05:59 mouth [place] 00 :00 daily for Medical 30 days. Branch insulin 2022- No [id number] 5U inject 5 Univers lispro, 05-26 9103 Units ity of human, 00:00: 05:59 under the [place] (ADMELOG 00 :00 skin 3 Medical U-100 (three) Branch INSULIN times LISPRO) 100 daily unit/mL before injection meals for 30 days. losartan 25 2022- No [id number] 75mg Take 3 Univers mg tablet 05-26 tablets by ity of 00:00: 05:59 mouth [place] 00 :00 daily for Medical 30 days. Branch insulin 2022- No [id number] 5U inject 5 Univers lispro, 05-26 9103 Units ity of human, 00:00: 05:59 under the [place] (ADMELOG 00 :00 skin 3 Medical U-100 (three) Branch INSULIN times LISPRO) 100 daily unit/mL before injection meals for 30 days. iron 2022- No 300mg 300 mg, IV Unive rs sucrose 05-25 Infusion, ity of (VENOFER) 18:15: 20:23 ONCE, [place] 300 mg in 00 :00 [...] Until Discontinu ed, Routine sennosides- 2022- No [id number] 1{tbl} Take 1 Univers docusate 05-25 tablet by ity o f sodium 00:00: 05:59 mouth 2 [place] 8.6-50 mg 00 :00 (two) Medical per tablet times Branch daily as needed for Constipati on for up to 30 days. spironolact 2022- No [id number] 12.5mg Take 0.5 Univers one 25 mg 05-25 9103 tablets by ity of tablet 00:00: 05:59 mouth [place] 00 :00 daily for Medical 30 days. [place] [facility] 2022- No [id number] 1{tbl} Take 1 Univers docusate 05-25 tablet by ity o f sodium 00:00: 05:59 mouth 2 [place] 8.6-50 mg 00 :00 (two) Medical per tablet times Branch daily as needed for Constipati on for up to 30 days. spironolact 2022- No [id number] 12.5mg Take 0.5 Univers one 25 mg 05-25 9103 tablets by ity of tablet 00:00: 05:59 mouth [place] 00 :00 daily for Medical 30 days. [place] [facility] 2022- No [id number] 1{tbl} Take 1 Univers docusate 05-25 tablet by ity o f sodium 00:00: 05:59 mouth 2 [place] 8.6-50 mg 00 :00 (two) Medical per tablet times Branch daily as needed for Constipati on for up to 30 days. spironolact 2022- No [id number] 12.5mg Take 0.5 Univers one 25 mg 05-25 9103 tablets by ity of tablet 00:00: 05:59 mouth [place] 00 :00 daily for Medical 30 days. [place] [facility] 2022- No [id number] 1{tbl} Take 1 Univers docusate 05-25 tablet by ity o f sodium 00:00: 05:59 mouth 2 [place] 8.6-50 mg 00 :00 (two) Medical per tablet times Branch daily as needed for Constipati on for up to 30 days. spironolact 2022- No [id number] 12.5mg Take 0.5 Univers one 25 mg 05-25 9103 tablets by ity of tablet 00:00: 05:59 mouth [place] 00 :00 daily for Medical 30 days. Branch NaCl 0.9% 2022- No 5mL 5 mL, Slow U nivers (NS) 05-24 IV Push, ity of injection 5 19:00: 19:00 ONCE, 1 [place] mL 00 :00 dose, On Medical Mon Branch 05/24/22 at 1300, Routine heparin Yes 2000U PRN - SEE [facility] ers 1,000 05-24 INSTRUCTIO ity of unit/mL 18:57: NS, [place] injection 56 Starting Medica l 2,000 Units on Tue Branch 05/24/22 at 1257, Until Discontinu ed, Routine
[...] [place] mL 00 :00 dose, On Medical Tue Branch 05/21/22 at 1215, Routine heparin Yes 2000U PRN - SEE [facility] ers 1,000 05-21 INSTRUCTIO ity of unit/mL 18:08: NS, [place] injection 11 Starting Medica l 2,000 Units on Tue Branch 05/21/22 at 1208, Until Discontinu ed, Routine
For Priming of Ports:&nbs p; &n bsp; After initial saline flush, prime each port with heparin according to the priming volume listed on each catheter port for catheter lock.
spironolact Yes 12.5mg 12.5 mg, Univers one 05-20 Oral, ity of (ALDACTONE) 15:00: DAILY, [place] tablet 12.5 00 First dose Me dical mg on [place] Branch 05/20/22 at 0900, Until Discontinu ed, Routine losartan 2022- No 50mg 50 mg, Univer s (COZAAR) 05-20 Oral, ity of tablet 50 15:00: 17:52 DAILY, [place] mg 00 :10 First dose Medical (after Branch last modificati on) on [place] 05/20/22 at 0900, Until Discontinu ed, Routine aspirin 81 0 Yes [id number] 81mg Take 1 Univers mg chewable 1- 9103 tablet by ity of tablet 00:00: mouth [place] 00 daily. Medical Branch pantoprazol 0 Yes [id number] 40mg Take 1 Univers e 40 mg EC 1- 9103 tablet by ity of tablet 00:00: mouth [place] 00 daily. Medical Branch isosorbide 2022-0 Yes [id number] 30mg Take 1 Univers mononitrate 1- 9103 tablet by ity of 30 mg 24 hr 00:00: mouth [place] tablet 00 daily. Medical Branch aspirin 81 0 Yes [id number] 81mg Take 1 Univers mg chewable - 9103 tablet by ity of tablet 00:00: mouth [place] 00 daily. Medical Branch pantoprazol 0 Yes [id number] 40mg Take 1 Univers e 40 mg EC - 9103 tablet by ity of tablet 00:00: mouth [place] 00 daily. Medical Branch isosorbide 2022-0 Yes [id number] 30mg Take 1 Univers mononitrate 1- 9103 tablet by ity of 30 mg 24 hr 00:00: mouth [place] tablet 00 daily. Medical Branch aspirin 81 0 Yes [id number] 81mg Take 1 Univers mg chewable - 9103 tablet by ity of tablet 00:00: mouth [place] 00 daily. Medical Branch pantoprazol 0 Yes [id number] 40mg Take 1 Univers e 40 mg EC - 9103 tablet by ity of tablet 00:00: mouth [place] 00 daily. Medical Branch isosorbide 2022-0 Yes [id number] 30mg Take 1 Univers mononitrate 1- 9103 tablet by ity of 30 mg 24 hr 00:00: mouth [place] tablet 00 daily. Medical Branch aspirin 81 0 Yes [id number] 81mg Take 1 Univers mg chewable 1- 9103 tablet by ity of tablet 00:00: mouth [place] 00 daily. Medical Branch pantoprazol 0 Yes [id number] 40mg Take 1 Univers e 40 mg EC 1- 9103 tablet by ity of tablet 00:00: mouth [place] 00 daily. Medical Branch isosorbide Yes [id number] 30mg Take 1 Univers mononitrate 05-20 9103 tablet by ity of 30 mg 24 hr 00:00: mouth [place] tablet 00 daily. Medical Branch losartan 50 2022- No [id number] 50mg Take 1 Univers mg tablet 05-20 9103 tablet by ity of 00:00: 00:00 mouth [place] 00 :00 daily. Medical Branch spironolact 2022- No [id number] 12.5mg Take half Univers one 25 mg 05-20 9103 a tablet ity o f tablet 00:00: 00:00 by mouth [place] 00 :00 daily. Medical Branch carvediloL Yes 25mg 25 mg, Unive rs (COREG) -25 Oral, BID ity of tablet 25 23:00: MEALS, [place] mg 00 First dose Medical (after Branch last modificati on) on Tue05/19/22 at 1700, Until Discontinu ed, Routine heparin Yes 2000U PRN - SEE Univ ers 1,000 -25 INSTRUCTIO ity of unit/mL 19:51: NS, [place] injection 17 Starting Medica l 2,000 Units on Tue05/19/22 at 1351, Until Discontinu ed, Routine
For Priming of Ports:&nbs p; &n bsp; After initial saline flush, prime each port with heparin according to the priming volume listed on each catheter port for catheter lock.
losartan No 50mg 50 mg, Univer s (COZAAR) 05-19 Oral, ity of tablet 50 15:00: 17:30 DAILY, [place] mg 00 :23 First dose Medical on Tue05/19/22 at 0900, Until Discontinu ed, Routine furosemide Yes [id number] 80mg Take 1 Univers 80 mg -25 9103 tablet by ity of tablet 00:00: mouth [place] 00 every Medical morning Branch and evening. carvediloL Yes [id number] 25mg Take 1 Univers 25 mg -25 9103 tablet by ity of tablet 00:00: mouth 2 [place] (two) Medical times Branch daily with meals. nitroglycer 2023-[id number] 1 Univers in 0.4 mg 1-25 9103 tablet ity of sublingual 00:00: under the [place] tablet 00 tongue Medical every 5 Branch (five) minutes as needed for Chest pain. furosemide 2023-0 Yes [id number] 80mg Take 1 Univers 80 mg 1-25 9103 tablet by ity of tablet 00:00: mouth [place] 00 every Medical morning Branch and evening. carvediloL 2023-0 Yes [id number] 25mg Take 1 Univers 25 mg 1-25 9103 tablet by ity of tablet 00:00: mouth 2 [place] (two) Medical times Branch daily with meals. nitroglycer 2023-[id number] 1 Univers in 0.4 mg 1-25 9103 tablet ity of sublingual 00:00: under the [place] tablet 00 tongue Medical every 5 Branch (five) minutes as needed for Chest pain. furosemide 2023-0 Yes [id number] 80mg Take 1 Univers 80 mg 1-25 9103 tablet by ity of tablet 00:00: mouth [place] 00 every Medical morning Branch and evening. carvediloL 2023-0 Yes [id number] 25mg Take 1 Univers 25 mg 1-25 9103 tablet by ity of tablet 00:00: mouth 2 [place] (two) Medical times Branch daily with meals. nitroglycer 2023-[id number] 1 Univers in 0.4 mg 1-25 9103 tablet ity of sublingual 00:00: under the [place] tablet 00 tongue Medical every 5 Branch (five) minutes as needed for Chest pain. nitroglycer 2023-[id number] 1 Univers in 0.4 mg 1-25 9103 tablet ity of sublingual 00:00: under the [place] tablet 00 tongue Medical every 5 Branch (five) minutes as needed for Chest pain. nitroglycer 2023-[id number] 1 Univers in 0.4 mg 1-25 9103 tablet ity of sublingual 00:00: under the [place] tablet 00 tongue Medical every 5 Branch (five) minutes as needed for Chest pain. nitroglycer 2023-[id number] 1 Univers in 0.4 mg 1-25 9103 tablet ity of sublingual 00:00: under the [place] tablet 00 tongue Medical every 5 Branch (five) minutes as needed for Chest pain. nitroglycer 2022-[id number] 1 Univers in 0.4 mg 1-25 9103 tablet ity of sublingual 00:00: under the [place] tablet 00 tongue Medical every 5 Branch (five) minutes as needed for Chest pain. furosemide 2022-0 Yes [id number] 80mg Take 1 Univers 80 mg 1-25 9103 tablet by ity of tablet 00:00: mouth [place] 00 every Medical morning Branch and evening. carvediloL 2022-0 Yes [id number] 25mg Take 1 Univers 25 mg 1-25 9103 tablet by ity of tablet 00:00: mouth 2 [place] 00 (two) Medical times Branch daily with meals. nitroglycer [id number] 1 Univers in 0.4 mg 1-25 9103 tablet ity of sublingual 00:00: under the [place] tablet 00 tongue Medical every 5 Branch (five) minutes as needed for Chest pain. insulin 2022- No [id number] 12U inject 12 Univers glargine 05-19- 9103 Units ity of 100 unit/mL 00:00: 05:59 under the [place] injection 00 :00 skin [facility] for 30 days. insulin 2022- No [id number] 12U inject 12 Univers glargine 05-19 9103 Units ity of 100 unit/mL 00:00: 05:59 under the [place] injection 00 :00 skin [facility] for 30 days. insulin 2022- No [id number] 12U inject 12 Univers glargine 05-19- 9103 Units ity of 100 unit/mL 00:00: 05:59 under the [place] injection 00 :00 skin [facility] for 30 days. insulin 2022- No [id number] 12U inject 12 Univers glargine 05-19- 9103 Units ity of 100 unit/mL 00:00: 05:59 under the [place] [facility] [place] [facility] insulin 2022- No [id number] 3U inject 3 Univers lispro, 05-19 9103 Units ity of human, 00:00: 00:00 under the [place] (ADMELOG 00 :00 skin 3 Medical U-100 (three) Branch INSULIN times LISPRO) 100 daily with unit/mL meals. injection morpHINE (2 2022- No 2mg 2 mg, Slow Univers mg/mL) 05-17 IV Push, ity of injection 2 23:03: 23:08 ONCE, 1 [place] mg 00 :00 dose, On [facility] 05/17/22 at 1715, Routine iopamidol 2022- No ONCE INTRA U nivers (ISOVUE 05-17 PROCEDURE, ity o f 370-500 mL) 21:47: 21:58 Starting [place] injection 07 :33 on [facility] 05/17/22 at Branch 1547, Until [facility] 05/17/22 at 1558, Routine, CV Intraproce dure lidocaine 2022- No ONCE INTRA U nivers 1% (PF) 05-17 PROCEDURE, ity o f (XYLOCAINE) 21:12: 21:58 Starting [place] injection 19 :33 on [facility] 05/17/22 at Branch 1512, Until [facility] 05/17/22 at 1558, Routine, CV Intraproce dure midazolam 2022- No ONCE INTRA U nivers (VERSED) 05-17 PROCEDURE, ity of injection 21:04: 21:58 Starting [place] 15 :33 on [facility] 05/17/22 at Branch 1504, Until [facility] 05/17/22 at 1558, Routine, CV Intraproce dure FENTanyl PF 2022- No ONCE INTRA Univers (SUBLIMAZE 05-17 PROCEDURE, it y of (PF)) 21:04: 21:58 Starting [place] injection 15 :33 on [facility] 05/17/22 at Branch 1504, Until [facility] 05/17/22 at 1558, Routine, CV Intraproce dure carvediloL Yes 12.5mg 12.5 mg, U nivers (COREG) 05-17 Oral, BID ity of tablet 12.5 18:15: MEALS, [place] mg 00 First dose Medical on [facility] Branch 05/17/22 at 1215, Until Discontinu ed, Routine carvediloL No 12.5mg 12.5 mg, Univers (COREG) 05-17 Oral, BID ity of tablet 12.5 18:15: 17:30 MEALS, [place] mg 00 :23 First dose Medical on Tue Branch 05/17/22 at 1215, Until Discontinu ed, Routine NaCl 0.9% 2022- No 5mL 5 mL, Slow U nivers (NS) 05-17 IV Push, ity of injection 5 13:45: 14:51 ONCE, 1 [place] mL 00 :00 dose, On Medical [facility] 05/17/22 at 0745, Routine heparin Yes 2000U PRN - SEE Univ ers 1,000 05-17 INSTRUCTIO ity of unit/mL 13:41: NS, [place] injection 07 Starting Medica l 2,000 Units on [facility] 05/17/22 at 0741, Until Discontinu ed, Routine
[...] :50 Starting Medica l 2,000 Units on [facility] Branch 05/17/22 at 0741, Until 05/18/22 at 1758, Routine
For Priming of Ports:&nbs p; &n bsp; After initial saline flush, prime each port with heparin according to the priming volume listed on each catheter port for catheter lock.
D10W 10 % Yes at 20-40 Univ ers IV infusion 1-22 mL/hr, IV ity of 21:06: Infusion, [place] 15 TITRATE, Medical Starting Branch on [place] 05/16/22 at 1506, Until Discontinu ed, Routine D10W 10 % Yes at 20-40 Univ ers IV infusion 1-22 mL/hr, IV ity of 21:06: Infusion, [place] 15 TITRATE, Medical Starting Branch on 05/16/22 at 1506, Until Discontinu ed, Routine lidocaine 2022- No PRN, Univers 1% (PF) 05-14 Starting ity of (XYLOCAINE) 20:43: 20:43 on Fri [place] injection 49 :49 05/14/22 at [facility] jeremiah 1443, Branch Until 05/14/22 at [...] 2022- No Slow IV Univ ers (ANCEF) 05-14 Push, PRN, ity o f injection 20:25: 20:25 Starting [place] 00 :00 on Fri Medical 05/14/22 at Branch 1425, Until 05/14/22 at 1425, CARLITOS heparin Yes 2000U PRN - SEE Univ ers 1,000 05-14 INSTRUCTIO ity of unit/mL 14:13: NS, [place] injection 51 Starting Medica l 2,000 Units on Fri Branch 05/14/22 at 0813, Until Discontinu ed, Routine
For Priming of Ports:&nbs p; &n bsp; After initial saline flush, prime each port with heparin according to the priming volume listed on each catheter port for catheter lock.
heparin 2022- No 2000U PRN - SEE Uni vers 1,000 1-20 01-24 INSTRUCTIO ity of unit/mL 14:13: 23:58 NS, [place] injection 51 :50 Starting Medica l 2,000 Units on Tue05/14/22 at 0813, Until Tue05/18/22 at 1758, Routine
For Priming of Ports:&nbs p; &n bsp; After initial saline flush, prime each port with heparin according to the priming volume listed on each catheter port for catheter lock.
heparin Yes 2000U PRN - SEE Univ ers 1,000 05-12 INSTRUCTIO ity of unit/mL 18:49: NS, [place] injection 07 Starting Medica l 2,000 Units on Tue05/12/22 at 1249, Until Discontinu ed, Routine
For Priming of Ports:&nbs p; &n bsp; After initial saline flush, prime each port with heparin according to the priming volume listed on each catheter port for catheter lock.
HYDROcodone 0 2022- No 1{tbl} 1 tablet, Univers -acetaminop 05-12 Oral, ity of hen (NORCO 02:45: 02:47 ONCE, 1 [place] 5) 5-325 mg 00 :00 dose, On [facility] jeremiah tablet 1 Tue tablet 05/11/22 at 2045, Routine metOLazone 0 2022- No 5mg 5 mg, Unive rs (ZAROXOLYN) 05-11 Oral, ity of tablet 5 mg 15:00: 21:03 DAILY, [place] 00 :44 First dose Medical on Tue05/11/22 at 0900, Until Discontinu ed, Routine acetaminoph 0 Yes 650mg 650 mg, Un aleksandar en 05-11 Oral, ity of (TYLENOL) 14:44: Q6HPRN, [place] tablet 650 38 Starting Medic al mg on Tue05/11/22 at 0844, Until Discontinu ed, Routine, Pain (scale 1-3), headaches acetaminoph 0 Yes 650mg 650 mg, Un aleksandar en 17 Oral, ity of (TYLENOL) 14:44: Q6HPRN, [place] tablet 650 38 Starting Medic al mg on Tue17/23 at 0844, Until Discontinu ed, Routine, Pain (scale 1-3), headaches NaCl 0.9% No 5mL 5 mL, Slow U nivers (NS) 05-10 IV Push, ity of injection 5 20:30: 22:06 ONCE, 1 [place] mL 00 :00 dose, On Medical [facility] Branch 05/10/22 at 1430, Routine heparin Yes 2000U PRN - SEE Univ ers 1,000 05-10 INSTRUCTIO ity of unit/mL 20:21: NS, [place] injection 14 Starting Medica l 2,000 Units on Tue Branch 05/10/22 at 1421, Until Discontinu ed, Routine
For Priming of Ports:&nbs p; &n bsp; After initial saline flush, prime each port with heparin according to the priming volume listed on each catheter port for catheter lock.
heparin 2022- No 2000U PRN - SEE Uni vers 1,000 05-10 INSTRUCTIO ity of unit/mL 20:21: 23:58 NS, [place] injection 14 :50 Starting Medica l 2,000 Units on [facility] Branch 05/10/22 at 1421, Until Tue05/18/22 at 1758, Routine
For Priming of Ports:&nbs p; &n bsp; After initial saline flush, prime each port with heparin according to the priming volume listed on each catheter port for catheter lock.
NaCl 0.9% Yes [id number] 250mL at 20 U nivers (NS) IV 1-16 mL/hr, IV ity of infusion 15:30: Infusion, [place] 250 mL 00 CONTINUOUS Medical , Starting Branch on Tue05/10/22 at 0930, Until Discontinu ed, Routine&lt ;br>To keep vein open
NaCl 0.9% 2022- No [id number] 250mL at 20 Univers (NS) IV 05-10 mL/hr, IV ity of infusion 15:30: 23:58 Infusion, [place] 250 mL 00 :50 CONTINUOUS Medical , Starting Branch on Tue05/10/22 at 0930, Until Tue05/18/22 at 1758, Routine
To keep vein open
perflutren 2022- No [id number] 2mL 2 mL, IV Univers lipid 05-10 Push, ity of microsphere 15:15: 15:15 ONCE, 1 [place] 00 :00 dose, On Medical (DEFINITY) [facility] Branch injection 2 05/10/22 at mL 0915, Routine metoprolol 2022- No [id number] 5mg 5 mg, Slow Univers (LOPRESSOR) 05-10 IV Push, ity of injection 5 15:15: 16:23 ONCE, 1 [place] mg 00 :00 dose, On Medical [facility] 05/10/22 at 0915, Routine furosemide Yes 80mg 80 mg, Unive rs (LASIX) 16 Oral, ity of tablet 80 15:00: QAM+PM, [place] mg 00 First dose Medical on [facility] 05/10/22 at 0900, Until Discontinu ed, Routine furosemide Yes 80mg 80 mg, Unive rs (LASIX) 16 Oral, ity of tablet 80 15:00: QAM+PM, [place] mg 00 First dose Medical on [facility] 05/10/22 at 0900, Until Discontinu ed, Routine metoprolol No 50mg 50 mg, Univ ers succinate 05-10 Oral, ity of XL (TOPROL 15:00: 18:05 DAILY, [place] XL) tablet 00 :07 First dose Med ical 50 mg (after Branch last modificati on) on Tue05/10/22 at 0900, Until Discontinu ed, Routine DOBUTamine Yes [id number] 5ug/kg/ 5 Univers (DOBUTREX) 1-16 min mcg/kg/min [...] (see Adjunctive Therapy)<b r> DOBUTamine 2022- No [id number] 5ug/kg/ 5 Univers (DOBUTREX) -16 01-24 min [...] Dobutamine infusion. (see Adjunctive Therapy)<b r> sennosides- 0 Yes 1{tbl} 1 tablet, Univers docusate 1-16 Oral, BID, ity o f sodium 14:00: First dose [place] (SENOKOT-S) 00 (after Medica l 8.6-50 mg last Branch per tablet modificati 1 tablet on) on Tue05/10/22 at 0800, Until Discontinu ed, Routine sennosides- 0 Yes 1{tbl} 1 tablet, Univers docusate 1-16 Oral, BID, ity o f sodium 14:00: First dose [place] (SENOKOT-S) 00 (after Medica l 8.6-50 mg last Branch per tablet modificati 1 tablet on) on Tue05/10/22 at 0800, Until Discontinu ed, Routine sevelamer 2022- No 800mg 800 mg, Uni vers (RENVELA) 05-1024 Oral, TID ity of tablet 800 14:00: 13:34 MEALS, [place] mg 00 :44 First dose Medical (after Branch last modificati on) on Tue05/10/22 at 0800, Until Discontinu ed, Routine hydrALAZINE Yes 50mg 50 mg, Univ ers (APRESOLINE 1-15 Oral, Q8H, it y of ) tablet 50 20:00: First dose [place] mg 00 (after Medical last Branch modificati on) on [place] 05/09/22 at 1400, Until Discontinu ed, Routine hydrALAZINE 2022-2022- No 50mg 50 mg, Uni vers (APRESOLINE 15 -25 Oral, Q8H, i ty of ) tablet 50 20:00: 14:00 First dose [place] mg 00 :37 (after Medical last Branch modificati on) on [place] 05/09/22 at 1400, Until Discontinu ed, Routine isosorbide 2022-0 Yes 30mg 30 mg, Unive rs mononitrate 1-15 Oral, ity of (IMDUR) 24 19:15: DAILY, [place] hr tablet 00 First dose Medi jeremiah 30 mg on [place] Branch 05/09/22 at 1315, Until Discontinu ed, Routine isosorbide 3-0 Yes 30mg 30 mg, Unive rs mononitrate -15 Oral, ity of (IMDUR) 24 19:15: DAILY, [place] hr tablet 00 First dose Medi jeremiah 30 mg on [place] Branch 05/09/22 at 1315, Until Discontinu ed, Routine metoprolol 2022-2022- No 25mg 25 mg, Univ ers succinate 05-09 Oral, ity of XL (TOPROL 15:00: 18:37 DAILY, [place] XL) tablet 00 :31 First dose Med ical 25 mg on [place] Branch 05/09/22 at 0900, Until Discontinu ed, Routine KCL 2022-2022- No 40meq 40 mEq, Univers (KLOR-CON 05-09 Oral, ity of M20) tablet 14:00: 16:28 ONCE, 1 [place] 40 mEq 00 :00 dose, On [facility] Branch 05/09/22 at 0800, Routine NaCl 0.9% 2022- No 5mL 5 mL, Slow U nivers (NS) 05-07 IV Push, ity of injection 5 23:30: 23:30 ONCE, 1 [place] mL 00 :00 dose, On Medical Fri Branch 05/07/22 at 1730, Routine heparin 2022-2022- No 2000U PRN - SEE Uni vers 1,000 05-07 INSTRUCTIO ity of unit/mL 23:28: 23:22 NS, [place] injection 18 :35 Starting Medica l 2,000 Units on Tue Branch 05/07/22 at 1728, Until Tue05/09/22 at 1722, Routine
For Priming of Ports:&nbs p; &n bsp; After initial saline flush, prime each port with heparin according to the priming volume listed on each catheter port for catheter lock.
morpHINE (2 2022- No 2mg 2 mg, Slow Univers mg/mL) 05-07 IV Push, ity of injection 2 21:45: 21:02 ONCE, 1 [place] mg 00 :00 dose, On [facility] Tue Branch 05/07/22 at 1545, Routine NaCl 0.9% 2022- No 5mL 5 mL, Slow U nivers (NS) 05-07 IV Push, ity of injection 5 21:30: 21:30 ONCE, 1 [place] mL 00 :00 dose, On [facility] Tue Branch 05/07/22 at 1530, Routine mupirocin 2022-0 Yes Nasal, Univer s (BACTROBAN 1-13 Q12H, For ity of NASAL OINT) 21:27: 5 days, [place] 2 % nasal 20 First dose Medi jeremiah ointment conditiona Branc h l, Routine mupirocin 2022-0 Yes Nasal, Univer s (BACTROBAN 1-13 Q12H, For ity of NASAL OINT) 21:27: 5 days, [place] 2 % nasal 20 First dose Medi jeremiah ointment conditiona Branc h l, Routine heparin 2022-0 202- No 2000U PRN - SEE Uni vers 1,000 05-07 INSTRUCTIO ity of unit/mL 21:27: 23:22 NS, [place] injection 20 :35 Starting Medica l 2,000 Units on Tue Branch 05/07/22 at 1527, Until Tue05/09/22 at 1722, Routine
For Priming of Ports:&nbs [...] per tablet modificati 2 tablet on) on [place] 05/06/22 at 0800, Until Discontinu ed, Routine acetaminoph No 650mg 650 mg, U nivers en 05-05 Oral, ity of (TYLENOL) 23:43: 14:44 Q6HPRN, [place] tablet 650 15 :52 Starting Medic al mg on Tue Branch 05/05/22 at 1743, Until Tue05/11/22 at 0844, Routine, [...] as 00 :26 First dose Medical on Tue [place] 05/04/22 at 1215, Until Discontinu ed, Routine sevelamer 2022- No 1600mg 1,600 mg, Univers (RENVELA) 05-04 Oral, TID ity of tablet 14:00: 13:13 MEALS, [place] 1,600 mg 00 :25 First dose Medic al (after Branch last modificati on) on Tue05/04/22 at 0800, Until Discontinu ed, Routine amLODIPine No 5mg 5 mg, Unive rs (NORVASC) 05-04 Oral, ity of tablet 5 mg 01:00: 03:32 DAILY, [place] 00 :21 First dose Medical on Tue [place] 05/03/22 at 1900, Until Discontinu ed, Routine hydrALAZINE 2022- No 25mg 25 mg, Uni vers (APRESOLINE 05-03 Oral, Q8H, i ty of ) tablet 25 20:00: 18:37 First dose [place] mg 00 :31 on [facility] 05/03/22 at Branch 1400, Until Discontinu ed, Routine perflutren No [id number] 3mL 3 mL, IV Univers protein-A 05-03 Push, ity of microsphr 18:30: 17:53 ONCE, 1 [place] (OPTISON) 00 :00 dose, On Medica l injection 3 Tue05/03/22 Br anch mL at 1230, Routine sevelamer No 800mg 800 mg, Uni vers (RENVELA) 05-03 Oral, TID ity of tablet 800 14:00: 00:50 MEALS, [place] mg 00 :30 First dose Medical on [facility] 05/03/22 at 0800, Until Discontinu ed, Routine sodium 2023-0 2023- No 1{spray 1 [place], Uni vers chloride 05-03 } Nasal, ity of (OCEAN MIST 05:00: 04:36 ONCE NOW, [place] NASAL) 0.65 00 :00 1 dose, On Me dical % nasal Sun 05/02/22 Branch spray 1 at 2300, [place] Routine furosemide 2023-0 2023- No 120mg 120 mg, Un aleksandar (LASIX) 05-02 Slow IV ity of injection 22:00: 13:08 Push, TID, [place] 120 mg 00 :07 First dose Medical on Sun Branch 05/02/22 at 1600, Until Discontinu ed, Routine trimethoben 2023-0 Yes 100mg 100 mg, Un aleksandar zamide -08 Intramuscu ity of (TIGAN) 16:00: lar, [place] injection 30 Q6HPRN, Medical 100 mg Starting Branch on 05/02/22 at 1000, Until Discontinu ed, Routine, Nausea and Vomiting (N/V) trimethoben 2023-0 Yes 100mg 100 mg, Un aleksandar zamide 08 Intramuscu ity of (TIGAN) 16:00: lar, [place] injection 30 Q6HPRN, Medical 100 mg Starting Branch on 05/02/22 at 1000, Until Discontinu ed, Routine, Nausea and Vomiting (N/V) pantoprazol 3-0 Yes 40mg 40 mg, Univ ers e 1-08 Oral, ity of (PROTONIX) 15:00: DAILY, [place] EC tablet 00 First dose Medi jeremiah 40 mg (after Branch last modificati on) on 05/02/22 at 0900, Until Discontinu ed, Routine aspirin 3-0 Yes 81mg 81 mg, Univers chewable 108 Oral, ity of tablet 81 15:00: DAILY, [place] mg 00 First dose Medical on [place] Branch 05/02/22 at 0900, Until Discontinu ed, Routine pantoprazol 2023-0 Yes 40mg 40 mg, Univ ers e 1-08 Oral, ity of (PROTONIX) 15:00: DAILY, [place] EC tablet 00 First dose Medi jeremiah 40 mg (after Branch last modificati on) on 05/02/22 at 0900, Until Discontinu ed, Routine aspirin 2022-0 Yes 81mg 81 mg, Univers chewable 05-02 Oral, ity of tablet 81 15:00: DAILY, [place] mg 00 First dose Medical on [place] Branch 05/02/22 at 0900, Until Discontinu ed, Routine polyethylen 2022-0 Yes 17g 17 g, Unive rs e glycol 05-02 Oral, ity of 3350 powder 03:30: DAILY, [place] 17 g 00 First dose Medical on Sat Branch 05/01/22 at 2130, Until Discontinu ed, Routine polyethylen 2022-0 Yes 17g 17 g, Unive rs e glycol 05-02 Oral, ity of 3350 powder 03:30: DAILY, [place] 17 g 00 First dose Medical on Sat Branch 05/01/22 at 2130, Until Discontinu ed, Routine sennosides- 2022-0 2022- No 1{tbl} 1 tablet, Univers docusate 05-02 Oral, ity of sodium 03:30: 18:08 DAILY, [place] (SENOKOT-S) 00 :22 First dose Me dical 8.6-50 mg on Sat Branch per tablet 05/01/22 at 1 tablet 0, Until Discontinu ed, Routine furosemide 2022-0 2022- [...] Starting Branc h mg on 05/01/22 at 2110, Until Discontinu ed, Routine, Chest pain nitroglycer 2022-0 Yes .4mg 0.4 mg, Uni vers in 05-02 Sublingual ity of (NITROSTAT) 03:10: , Q5MIN [place] sublingual 09 PRN, Medical tablet 0.4 Starting Branc h mg on 05/01/22 at 2110, Until Discontinu ed, Routine, Chest pain Sliding 2023-0 Yes Subcutaneo Univ ers Scale 1-08 us, TID ity of Insulin - 03:00: MEALS+HS, [place] Lispro 00 First dose Medical (HumaLOG) + on Sat Branch Fsbg 05/01/22 at Testing 2100, Until Discontinu ed, Routine Sliding 0 Yes Subcutaneo Univ ers Scale 1-08 us, TID ity of Insulin - 03:00: MEALS+HS, [place] Lispro 00 First dose Medical (HumaLOG) + on Sat Branch Fsbg 05/01/22 at Testing 2100, Until Discontinu ed, Routine heparin Yes 5000U 5,000 Univers (porcine) 1-08 Units, ity of injection 02:00: Subcutaneo [place] 5,000 Units 00 us, Q12H, Med ical First dose Branch on 05/01/22 at 2000, Until Discontinu ed, Routine heparin Yes 5000U 5,000 Univers (porcine) 1-08 Units, ity of injection 02:00: Subcutaneo [place] 5,000 Units 00 us, Q12H, Med ical First dose Branch on 05/01/22 at 2000, Until Discontinu ed, Routine dextrose Yes 250mL 250 mL, IV Un aleksandar 10% (D10W) 1-08 Infusion, ity of bolus 01:04: PRN - SEE [place] infusion 27 INSTRUCTIO Medic al 250 mL [...] glucose is < 80 mg/dL, repeat.
dextrose Yes 250mL 250 mL, IV Un aleksandar 10% (D10W) 08 Infusion, ity of bolus 01:04: PRN - SEE [place] infusion 27 INSTRUCTIO Medic al 250 mL [...] 2022-0 Yes 1mg 1 mg, Univers (GLUCAGEN 05-02 Intramuscu ity of DIAGNOSTIC 01:04: lar, PRN, [place] KIT) 21 Starting Medical injection 1 on Sat Branch mg 05/01/22 at 1904, Until Discontinu ed, CARLITOS, Blood Glucose < or = 70 mg/dL and patient is unable to swallow or has mental changes. glucagon 0 Yes 1mg 1 mg, Univers (GLUCAGEN 05-02 Intramuscu ity of DIAGNOSTIC 01:04: lar, PRN, [place] KIT) 21 Starting Medical injection 1 on Sat Branch mg 05/01/22 at 1904, Until Discontinu ed, CARLITOS, [...] at 1743, Routine, Pain (scale 1-3) furosemide 2022-0 2022- No 80mg 80 mg, IV U nivers (LASIX) 05-01 Push, ity of injection 20:30: 20:22 ONCE, 1 [place] 80 mg 00 :00 dose, On Medical 05/01/22 Branch at 1430, CARLITOS furosemide 2022-0 2022- No 80mg 80 mg, IV U nivers (LASIX) 05-01 Push, ity of injection 18:15: 18:45 ONCE, 1 [place] 80 mg 00 :00 dose, On Medical 05/01/22 Branch at 1215, CARLITOS aspirin 81 2021-0 Yes [id number] 81mg Take 1 Univers mg chewable 1-11 9103 tablet by ity of tablet 00:00: mouth [place] 00 daily. Medical Branch aspirin 81 2021-0 Yes [id number] 81mg Take 1 Univers mg chewable 1-11 9103 tablet by ity of tablet 00:00: mouth [place] 00 daily. Medical Branch aspirin 81 2021-0 Yes [id number] 81mg Take 1 Univers mg chewable 1-11 9103 tablet by ity of tablet 00:00: mouth [place] 00 daily. Medical Branch aspirin 81 2021-0 Yes [id number] 81mg Take 1 Univers mg chewable 1-11 9103 tablet by ity of tablet 00:00: mouth [place] 00 daily. Medical Branch aspirin 81 2021-0 Yes [id number] 81mg Take 1 Univers mg chewable 1-11 9103 tablet by ity of tablet 00:00: mouth [place] 00 daily. Medical Branch aspirin 81 2021-0 Yes [id number] 81mg Take 1 Univers mg chewable 1-11 9103 tablet by ity of tablet 00:00: mouth [place] 00 daily. Medical Branch aspirin 81 2021-0 Yes [id number] 81mg Take 1 Univers mg chewable 1-11 9103 tablet by ity of tablet 00:00: mouth [place] 00 daily. Medical Branch aspirin 81 2021-0 Yes [id number] 81mg Take 1 Univers mg chewable 1-11 9103 tablet by ity of tablet 00:00: mouth [place] 00 daily. Medical Branch aspirin 81 2021-0 202- No [id number] 81mg Take 1 Univers mg chewable 1-11 05-19 9103 tablet by it y of tablet 00:00: 00:00 mouth [place] 00 :00 daily. Medical Branch calcitrioL 2021-0 Yes .25ug 0.25 mcg, U nivers (ROCALTROL) 1-10 Oral, Q ity o f capsule 15:00: OTHERDAY, [place] 0.25 mcg 00 First dose Medic al on Tue Branch 05/04/21 at 0900, Until Discontinu ed, Routine furosemide No 40mg Take 40 mg Univers (LASIX) 40 05-04 by mouth ity of mg tablet 10:52: 00:00 daily. [place] 58 :00 Medical Branch pantoprazol No 40mg Take 40 mg Univers e sodium 05-04 by mouth ity of (PANTOPRAZO 10:52: 00:00 daily. [place] LE ORAL) 58 :00 Medical Branch SUCRALFATE No 1g Take 1 g Un aleksandar ORAL 05-04 by mouth ity of 10:52: 00:00 every 8 [place] 58 :00 (eight) Medical hours. Branch metoclopram No 10mg Take 10 mg Univers yue HCl 05-04 by mouth ity of (REGLAN) 10 10:52: 00:00 before [place] mg tablet 58 :00 meals. Medical Take 20 Branch minutes before each meal metoprolol No 100mg Take 100 U nivers succinate 05-0410 mg by ity of XL 100 mg 10:52: 00:00 mouth [place] 24 hr 58 :00 daily. Medical tablet Branch telmisartan No 40mg Take 40 mg Univers 40 mg 05-04 by mouth ity of tablet 10:52: 00:00 every 12 [place] 58 :00 (twelve) Medical hours. Branch amLODIPine No 5mg Take 5 mg U nivers 5 mg tablet 05-04 by mouth ity of 10:52: 00:00 daily. [place] 58 :00 Medical Branch insulin 2021- No 18U inject 18 Univ ers glargine,hu 05-04 Units ity of m.rec.anlog 10:52: 00:00 under the [place] (INSULIN 58 :00 skin at Medical GLARGINE bedtime. Branch [place]) linaGLIPtin 2021- No 5mg Take 5 mg Univers (TRADJENTA) 05-04 by mouth ity of 5 mg tablet 10:52: 00:00 daily [place] 58 :00 before Medical breakfast. Branch furosemide 20mg Take 20 mg Univers 20 mg [...] 02:00: First dose [place] mg 00 on [facility] 05/03/21 at Branch 2000, Until Discontinu ed, Routine polyethylen Yes 17g 17 g, Unive rs e glycol 1-10 Oral, ity of 3350 powder 01:53: QDAILYPRN, [place] 17 g 28 Starting Medical on [facility] 05/03/21 at 1953, Until Discontinu ed, Routine, Constipati on bisacodyL Yes 5mg 5 mg, Univers (DULCOLAX) 1-10 Oral, ity of tablet 5 mg 01:53: QDAILYPRN, [place] 05 Starting Medical on [facility] 05/03/21 at 1953, Until Discontinu ed, Routine, Constipati on amLODIPine Yes [id number] 5mg Take 1 Univers 5 mg tablet 05-04 9103 tablet by ity of 00:00: mouth [place] 00 daily. Medical Branch pantoprazol Yes [id number] 20mg Take 1 Univers e 20 mg EC 10 9103 tablet by ity of tablet 00:00: mouth [place] 00 daily. Medical Branch insulin Yes [id number] 25U inject 25 Univers glargine 10 9103 Units ity of 100 unit/mL 00:00: under the [place] injection 00 skin at Medical bedtime. Branch metoprolol Yes [id number] 100mg Take 1 Univers succinate 1-10 9103 tablet by ity o f XL 100 mg 00:00: mouth [place] 24 hr 00 daily. Medical tablet Branch furosemide Yes [id number] 120mg Take 3 Univers 40 mg 1-10 9103 tablets by ity of tablet 00:00: mouth [place] 00 every Medical morning Branch and evening. 120 mg twice a day amLODIPine Yes [id number] 5mg Take 1 Univers 5 mg tablet 1-10 9103 tablet by ity of 00:00: mouth [place] 00 daily. Medical Branch pantoprazol Yes [id number] 20mg Take 1 Univers e 20 mg EC 1-10 9103 tablet by ity of tablet 00:00: mouth [place] 00 daily. Medical Branch insulin Yes [id number] 25U inject 25 Univers glargine 1-10 9103 Units ity of 100 unit/mL 00:00: under the [place] injection 00 skin at Medical bedtime. Branch metoprolol Yes [id number] 100mg Take 1 Univers succinate 1-10 9103 tablet by ity o f XL 100 mg 00:00: mouth [place] 24 hr 00 daily. Medical tablet Branch furosemide Yes [id number] 120mg Take 3 Univers 40 mg 1-10 9103 tablets by ity of tablet 00:00: mouth [place] 00 every Medical morning Branch and evening. 120 mg twice a day amLODIPine Yes [id number] 5mg Take 1 Univers 5 mg tablet 1-10 9103 tablet by ity of 00:00: mouth [place] 00 daily. Medical Branch pantoprazol Yes [id number] 20mg Take 1 Univers e 20 mg EC 1-10 9103 tablet by ity of tablet 00:00: mouth [place] 00 daily. Medical Branch insulin Yes [id number] 25U inject 25 Univers glargine 1-10 9103 Units ity of 100 unit/mL 00:00: under the [place] injection 00 skin at Medical bedtime. Branch metoprolol Yes [id number] 100mg Take 1 Univers succinate 1-10 9103 tablet by ity o f XL 100 mg 00:00: mouth [place] 24 hr 00 daily. Medical tablet Branch furosemide Yes [id number] 120mg Take 3 Univers 40 mg 1-10 9103 tablets by ity of tablet 00:00: mouth [place] 00 every Medical morning Branch and evening. 120 mg twice a day amLODIPine Yes [id number] 5mg Take 1 Univers 5 mg tablet 1-10 9103 tablet by ity of 00:00: mouth [place] 00 daily. Medical Branch pantoprazol Yes [id number] 20mg Take 1 Univers e 20 mg EC 1 9103 tablet by ity of tablet 00:00: mouth [place] 00 daily. Medical Branch insulin Yes [id number] 25U inject 25 Univers glargine 1-10 9103 Units ity of 100 unit/mL 00:00: under the [place] injection 00 skin at Medical bedtime. Branch metoprolol Yes [id number] 100mg Take 1 Univers succinate 1-10 9103 tablet by ity o f XL 100 mg 00:00: mouth [place] 24 hr 00 daily. Medical tablet Branch furosemide Yes [id number] 120mg Take 3 Univers 40 mg 1-10 9103 tablets by ity of tablet 00:00: mouth [place] 00 every Medical morning Branch and evening. 120 mg twice a day amLODIPine Yes [id number] 5mg Take 1 Univers 5 mg tablet 05-04 9103 tablet by ity of 00:00: mouth [place] 00 daily. Medical Branch pantoprazol Yes [id number] 20mg Take 1 Univers e 20 mg EC 1 9103 tablet by ity of tablet 00:00: mouth [place] 00 daily. Medical Branch insulin Yes [id number] 25U inject 25 Univers glargine 1-10 9103 Units ity of 100 unit/mL 00:00: under the [place] injection 00 skin at Medical bedtime. Branch metoprolol Yes [id number] 100mg Take 1 Univers succinate 1-10 9103 tablet by ity o f XL 100 mg 00:00: mouth [place] 24 hr 00 daily. Medical tablet Branch furosemide Yes [id number] 120mg Take 3 Univers 40 mg 1-10 9103 tablets by ity of tablet 00:00: mouth [place] 00 every Medical morning Branch and evening. 120 mg twice a day amLODIPine Yes [id number] 5mg Take 1 Univers 5 mg tablet 05-04 9103 tablet by ity of 00:00: mouth [place] 00 daily. Medical Branch pantoprazol Yes [id number] 20mg Take 1 Univers e 20 mg EC 1 9103 tablet by ity of tablet 00:00: mouth [place] 00 daily. Medical Branch insulin Yes [id number] 25U inject 25 Univers glargine 1 9103 Units ity of 100 unit/mL 00:00: under the [place] injection 00 skin at Medical bedtime. Branch metoprolol Yes [id number] 100mg Take 1 Univers succinate 10 9103 tablet by ity o f XL 100 mg 00:00: mouth [place] 24 hr 00 daily. Medical tablet Branch furosemide Yes [id number] 120mg Take 3 Univers 40 mg 05-04 9103 tablets by ity of tablet 00:00: mouth [place] 00 every Medical morning Branch and evening. 120 mg twice a day amLODIPine Yes [id number] 5mg Take 1 Univers 5 mg tablet 05-04 9103 tablet by ity of 00:00: mouth [place] 00 daily. Medical Branch pantoprazol Yes [id number] 20mg Take 1 Univers e 20 mg EC 05-04 9103 tablet by ity of tablet 00:00: mouth [place] 00 daily. Medical Branch insulin Yes [id number] 25U inject 25 Univers glargine 1 9103 Units ity of 100 unit/mL 00:00: under the [place] injection 00 skin at Medical bedtime. Branch metoprolol Yes [id number] 100mg Take 1 Univers succinate 10 9103 tablet by ity o f XL 100 mg 00:00: mouth [place] 24 hr 00 daily. Medical tablet Branch furosemide Yes [id number] 120mg Take 3 Univers 40 mg 1-10 9103 tablets by ity of tablet 00:00: mouth [place] 00 every Medical morning Branch and evening. 120 mg twice a day amLODIPine 2021-0 Yes [id number] 5mg Take 1 Univers 5 mg tablet 110 9103 tablet by ity of 00:00: mouth [place] 00 daily. Medical Branch pantoprazol Yes [id number] 20mg Take 1 Univers e 20 mg EC 05-04 9103 tablet by ity of tablet 00:00: mouth [place] 00 daily. Medical Branch insulin Yes [id number] 25U inject 25 Univers glargine 05-04 9103 Units ity of 100 unit/mL 00:00: under the [place] injection 00 skin at Medical bedtime. Branch metoprolol Yes [id number] 100mg Take 1 Univers succinate 05-04 9103 tablet by ity o f XL 100 mg 00:00: mouth [place] 24 hr 00 daily. Medical tablet Branch furosemide Yes [id number] 120mg Take 3 Univers 40 mg 05-04 9103 tablets by ity of tablet 00:00: mouth [place] 00 every Medical morning Branch and evening. 120 mg twice a day amLODIPine 2022- No [id number] 5mg Take 1 Univers 5 mg tablet 05-04 9103 tablet by it y of 00:00: 00:00 mouth [place] 00 :00 daily. Medical Branch pantoprazol 2022- No [id number] 20mg Take 1 Univers e 20 mg EC 05-04 9103 tablet by ity of tablet 00:00: 00:00 mouth [place] 00 :00 daily. Medical Branch insulin 2022- No [id number] 25U inject 25 Univers glargine 05-04 9103 Units ity of 100 unit/mL 00:00: 00:00 under the [place] injection 00 :00 skin at Medical bedtime. Branch metoprolol 2022- No [id number] 100mg Take 1 Univers succinate 05-04 9103 tablet by ity of XL 100 mg 00:00: 00:00 mouth [place] 24 hr 00 :00 daily. Medical tablet Branch furosemide 2022- No [id number] 120mg Take 3 Univers 40 mg 05-04 [...] ed Sliding Yes Subcutaneo Univ ers Scale 05-03 us, Q4H, ity of Insulin - 02:00: [place] Lispro 00 (after Medical (HumaLOG) + last Branch Fsbg modificati Testing on) on 05/02/21 at 2000, Until Discontinu ed, Routine sodium Yes 650mg 650 mg, Univers bicarbonate 08 Oral, QID, it y of (ANTACID 18:00: First dose [place] as (SODIUM 00 on Sat Medical BICARBONATE 05/02/21 at [facility] )) tablet 1200, 650 mg Until Discontinu ed, Routine furosemide 2021- No 80mg 80 mg, [facility] ers (LASIX) 05-02 Slow IV ity of [...] 05/10/21 at 0900, Routine sodium 2021- No [id number] 150meq IV [facility] ers bicarbonate 05-02 Infusion, it y of 150 mEq in 10:15: 10:15 at 125 [place] D5W 1,000 00 :00 mL/hr, 150 Medi jeremiah mL IV mEq, ONCE, Branch infusion 1 dose, On 05/02/21 at 0415, STAT furosemide 2021-0 2- No [id number] 80mg 80 mg, Univers (LASIX) 05-01 Slow [...] 05-01 Oral, ity of (PROTONIX) 15:00: DAILY, [place] EC tablet 00 First dose Medi jeremiah 40 mg on Tue Branch 05/01/21 at 0900, Until Discontinu ed metoprolol Yes 100mg 100 mg, Uni vers succinate 05-01 Oral, ity of XL (TOPROL 15:00: DAILY, [place] XL) tablet 00 First dose Med ical [...] Routine insulin 2021- No 18U 18 Units, Univ ers glargine 05-01- Subcutaneo ity of (LANTUS 03:00: 00:39 , [facility], [place] U-100) 00 :26 First dose Medical injection on [place] Branch 18 Units 04/30/21 at 2100, Until Discontinu ed Sliding 2021- No Subcutaneo Uni vers Scale 04-30 us, TID ity of Insulin - 23:00: 00:39 MEALS+HS, [place] Lispro 00 :26 First dose Medical (HumaLOG) + on [place] Branch Fsbg 04/30/21 at Testing 1700, Until Discontinu ed, Routine sulfur 2021- No [id number] 5mL 5 mL, [facility] hexafluorid 04-30 Intravenou i ty of e microsphr 21:00: 21:00 s, ONCE, 1 [place] (LUMASON) 00 :00 dose, On Medica l injection 5 [place] 04/30/21 Br anch mL at 1500, Routine
count team member approving Restricted medication : CHAPIS GUPTA heparin Yes 5000U 5,000 Univers (porcine) 04-30 Units, ity of injection 20:00: [place]cutaneo [place] 5,000 Units 00 us, Q8H, Medi jeremiah First dose Branch on [place] 04/30/21 at 1400, Until Discontinu ed, Routine codeine-gua Yes 10mL 10 mL, [facility] ifenesin 04-30 Oral, ity of (ROBITUSSIN 19:40: [...] Yes 650mg 650 mg, Un aleksandar en 06 Oral, ity of (TYLENOL) 19:39: Q6HPN, [place] tablet 650 47 Starting Medic al mg on [place] Branch 04/30/21 at 1339, Until Discontinu ed, Routine, Pain (scale 1-3) dexamethaso No 10mg 10 mg, IV Univers ne 04-30 Push, ity of (DECADRON 13:45: 13:45 ONCE, 1 [place] PHOSPHATE) 00 :00 dose, On Medic al injection [place] 04/30/21 Bran ch 10 mg at 0745, STAT acetaminoph No 1000mg 1,000 mg, Univers en 04-30 Oral, ity of (TYLENOL) 12:45: 11:48 ONCE, [place] tablet 00 :00 dose, On Medical 1,000 mg [place] 04/30/21 Branc h at 0645, CARLITOS Vital Signs Vital Name Observation Time Observation Value Comments Source Systolic blood 2022-05-27 01:52:00 156 mm[Hg] [facility] Diastolic blood 2022-05-27 01:52:00 66 mm[Hg] [facility] 2022-05-27 01:52:00 65 /min [facility] Body temperature 2022-05-27 01:52:00 36.44 Venita [facility] rate 2022-05-27 01:52:00 18 /min [facility] Oxygen saturation in 2022-05-27 01:52:00 97 /min [place] [facility] Arterial blood by [place] [facility] [employer] Pulse oximetry Branch Body weight 2022-05-27 01:23:00 70.1 kg [facility] BMI 2022-05-27 01:23:00 26.53 kg/m2 [facility] Body height 2022-05-14 19:48:00 162.6 cm [facility] Systolic blood 2022-05-17 22:45:00 132 mm[Hg] Univer sity of [facility] Diastolic blood 2022-05-17 22:45:00 59 mm[Hg] Unive rsity [facility] Respiratory rate 2022-05-17 22:45:00 22 /min [facility] Oxygen saturation in 2022-05-17 22:45:00 96 /min University of Arterial blood by [place] [employer] Pulse oximetry Branch Heart rate 2022-05-17 18:15:00 80 /min [facility] [place] [facility] Body temperature 2022-05-17 18:15:00 36.22 Venita Univ [facility] [place] [facility] Body weight 2022-05-17 17:54:00 64.225 kg [facility] [place] [facility] BMI 2022-05-17 17:54:00 24.30 kg/m2 [facility] [place] [facility] Body height 2022-05-14 19:48:00 162.6 cm [facility] [place] [facility] Systolic blood 2021-05-04 17:15:00 156 mm[Hg] Univer sity of pressure [place] [facility] Diastolic blood 2021-05-04 17:15:00 60 mm[Hg] Unive rsity of pressure [place] [facility] Heart rate 2021-05-04 17:15:00 93 /min [facility]i ty [facility] [place] [facility] Body temperature 2021-05-04 17:15:00 37 Venita Univ ers[facility] [place] [facility] Respiratory rate 2021-05-04 17:15:00 18 /min Univ ers[facility] [place] [facility] Oxygen saturation in 2021-05-04 17:15:00 96 /min University of Arterial blood by [place] [employer] [facility] Pulse oximetry Branch Body weight 2021-05-01 09:42:00 84.959 kg [facility] [place] [facility] BMI 2021-05-01 09:42:00 34.26 kg/m2 [facility] [place] [facility] Body height 2021-04-30 15:05:00 157.5 cm [facility] [place] [facility] Systolic blood 2022-05-16 17:40:00 123 mm[Hg] Univer sity of pressure [place] [facility] Diastolic blood 2022-05-16 17:40:00 55 mm[Hg] Unive rsity of pressure [place] [facility] Heart rate 2022-05-16 17:40:00 69 /min [facility] [place] [facility] Body temperature 2022-05-16 17:40:00 36.67 Venita Univ ers[facility] [place] [facility] Respiratory rate 2022-05-16 17:40:00 18 /min Univ ers[facility] [place] [facility] Oxygen saturation in 2022-05-16 17:40:00 100 /min University of Arterial blood by [facility] Pulse oximetry Branch Body height 2022-05-14 19:48:00 162.6 cm [facility] Body weight 2022-05-14 19:48:00 66.225 kg [facility] BMI 2022-05-14 19:48:00 25.06 kg/m2 [facility] Procedures Procedure Date / Time Performing Clinician Source Performed [facility] 2022-12-28 05:01:00 Doctor Unassigned, No [facility] IMAGING - RETINA SCAN Name [facility] anch INSURANCE CORRESPONDENCE 2022-12-02 05:01:00 Doctor Unassigned, No [facility] Name [facility] REFERRAL- 2022-09-28 05:01:00 Doctor Unassigned, No [facility] REQUEST/RESPONSE Name [facility] CONSENT FOR 2022-06-10 15:38:31 Doctor Unassigned, No [facility] FREE TREATMENT FORM Name [facility] CONSENT/REFUSAL FOR 2022-06-08 14:57:49 Doctor Unassigned, No [facility] DIAGNOSIS AND TREATMENT Name [facility] POCT GLUCOSE (AUTOMATED) 2022-05-27 01:52:00 Alexander [facility] POCT GLUCOSE (AUTOMATED) 2022-05-26 22:40:00 Alexander [facility] POCT GLUCOSE (AUTOMATED) 2022-05-26 18:52:00 Alexander [facility] POCT GLUCOSE (AUTOMATED) 2022-05-26 15:28:00 Alexander [facility] PHOSPHORUS 2022-05-26 09:59:00 Dorothea [facility] MAGNESIUM 2022-05-26 09:59:00 Dorothea [facility] BASIC METABOLIC PANEL 2022-05-26 09:59:00 Otoniel PiedraReplaced by [facility] (NA, K, CL, CO2, GLUCOSE, Medica l Branch BUN, CREATININE, CA) CBC WITH DIFF 2022-05-26 09:59:00 Dorothea [facility] POCT GLUCOSE (AUTOMATED) 2022-05-26 03:09:00 Alexander [facility] POCT GLUCOSE (AUTOMATED) 2022-05-25 23:18:00 Alexander , [facility] POCT GLUCOSE (AUTOMATED) 2022-05-25 18:06:00 Alexander , [facility] POCT GLUCOSE (AUTOMATED) 2022-05-25 15:17:00 Alexander , [facility] POCT GLUCOSE (AUTOMATED) 2022-05-25 03:12:00 Alexander , [facility] POCT GLUCOSE (AUTOMATED) 2022-05-25 01:41:00 Alexander [facility] POCT GLUCOSE (AUTOMATED) 2022-05-24 18:01:00 Alexander [facility] POCT GLUCOSE (AUTOMATED) 2022-05-24 15:23:00 Alexander [facility] HB ECG ROUTINE & RHYTHM 2022-05-24 13:36:35 Olena Gilbert [facility] PHOSPHORUS 2022-05-24 10:38:00 Benny Chris [facility] MAGNESIUM 2022-05-24 10:38:00 Benny [facility] BASIC METABOLIC PANEL 2022-05-24 10:38:00 Chris Zapata [facility] (NA, K, CL, CO2, GLUCOSE, Medica l Branch BUN, CREATININE, CA) CBC WITH DIFF 2022-05-24 10:38:00 Benny Chris [facility] POCT GLUCOSE (AUTOMATED) 2022-05-24 03:02:00 Alexander [facility] POCT GLUCOSE (AUTOMATED) 2022-05-23 23:34:00 Alexander [facility] POCT GLUCOSE (AUTOMATED) 2022-05-23 18:11:00 Alexander [facility] POCT GLUCOSE (AUTOMATED) 2022-05-23 15:12:00 Alexander [facility] MAGNESIUM 2022-05-23 09:58:00 Chris Zapata [facility] BASIC METABOLIC PANEL 2022-05-23 09:58:00 Chris Zapata [facility] (NA, K, CL, CO2, GLUCOSE, Medica l Branch BUN, CREATININE, CA) POCT GLUCOSE (AUTOMATED) 2022-05-23 02:39:00 Alexander , [facility] POCT GLUCOSE (AUTOMATED) 2022-05-22 23:21:00 [place] , [facility] POCT GLUCOSE (AUTOMATED) 2022-05-22 20:35:00 Alexander [facility] POCT GLUCOSE (AUTOMATED) 2022-05-22 18:31:00 Alexander [facility] HB ECG ROUTINE & RHYTHM 2022-05-22 15:37:20 Olena Gilbert [facility] POCT GLUCOSE (AUTOMATED) 2022-05-22 15:07:00 Alexander [facility] MAGNESIUM 2022-05-22 09:38:00 Chris Zapata [facility] BASIC METABOLIC PANEL 2022-05-22 09:38:00 Chris Zapata [facility] (NA, K, CL, CO2, GLUCOSE, Medica l Branch BUN, CREATININE, CA) POCT GLUCOSE (AUTOMATED) 2022-05-22 03:04:00 Alexander [facility] POCT GLUCOSE (AUTOMATED) 2022-05-21 23:16:00 Alexander [facility] POCT GLUCOSE (AUTOMATED) 2022-05-21 15:02:00 Alexander [facility] HB ECG ROUTINE & RHYTHM 2022-05-21 14:28:30 Ervin Cazares [facility] PHOSPHORUS 2022-05-21 10:53:00 Chris Zapata [facility] MAGNESIUM 2022-05-21 10:53:00 Benny Chris [facility] BASIC METABOLIC PANEL 2022-05-21 10:53:00 Chris Zapata [facility] (NA, K, CL, CO2, GLUCOSE, Medica l Branch BUN, CREATININE, CA) CBC WITH DIFF 2022-05-21 10:53:00 Benny Chris [facility] POCT GLUCOSE (AUTOMATED) 2022-05-21 03:47:00 [place]on [facility] POCT GLUCOSE (AUTOMATED) 2022-05-20 23:08:00 [place]-Prestno [facility] POCT GLUCOSE (AUTOMATED) 2022-05-20 19:21:00 [place] [facility] HB ECG ROUTINE & RHYTHM 2022-05-20 14:06:21 Ervin Cazares [facility] POCT GLUCOSE (AUTOMATED) 2022-05-20 13:51:00 Romeliaizaga-Preston [facility] POCT GLUCOSE (AUTOMATED) 2022-05-20 07:57:00 Itlatashaizaga-Preston , [facility] POCT GLUCOSE (AUTOMATED) 2022-05-20 04:45:00 Aidaaga-Preston , [facility] POCT GLUCOSE (AUTOMATED) 2022-05-20 00:28:00 [place] , [facility] POCT GLUCOSE (AUTOMATED) 2022-05-19 18:03:00 Romeliaizaga-Preston , [facility] POCT GLUCOSE (AUTOMATED) 2022-05-19 14:43:00 Alexander [facility] HB ECG ROUTINE & RHYTHM 2022-05-19 13:37:14 Ervin Cazares [facility] PHOSPHORUS 2022-05-19 11:24:00 Chris Zapata [facility] MAGNESIUM 2022-05-19 11:24:00 Benny Chris [facility] BASIC METABOLIC PANEL 2022-05-19 11:24:00 Benny Chris [facility] (NA, K, CL, CO2, GLUCOSE, Medica l Branch BUN, CREATININE, CA) CBC WITH DIFF 2022-05-19 11:24:00 Benny [facility] POCT GLUCOSE (AUTOMATED) 2022-05-19 03:37:00 Alexander , [facility] POCT GLUCOSE (AUTOMATED) 2022-05-18 22:25:00 Alexander , [facility] POCT GLUCOSE (AUTOMATED) 2022-05-18 18:03:00 [place] , [facility] POCT GLUCOSE (AUTOMATED) 2022-05-18 18:03:00 [facility] POCT GLUCOSE (AUTOMATED) 2022-05-18 14:51:00 Alexander , [facility] POCT GLUCOSE (AUTOMATED) 2022-05-18 14:51:00 Alexander [facility] HB ECG ROUTINE & RHYTHM 2022-05-18 14:28:11 Olena Gilbert [facility] CBC WITH DIFF 2022-05-18 12:58:00 Dor[facility]a [facility] CBC WITH DIFF 2022-05-18 12:58:00 Dor[facility]a [facility] PHOSPHORUS 2022-05-18 12:57:00 Dor[facility]a [facility] URIC ACID 2022-05-18 12:57:00 Benny [facility] MAGNESIUM 2022-05-18 12:57:00 Dorothea [facility] BASIC METABOLIC PANEL 2022-05-18 12:57:00 Dorothea [facility] (NA, K, CL, CO2, GLUCOSE, Medica l Branch BUN, CREATININE, CA) PHOSPHORUS 2022-05-18 12:57:00 Dorothea [facility] URIC ACID 2022-05-18 12:57:00 Chris Zapata [facility] MAGNESIUM 2022-05-18 12:57:00 Dorothea [facility] BASIC METABOLIC PANEL 2022-05-18 12:57:00 Kings Piedra [facility] (NA, K, CL, CO2, GLUCOSE, Medica l Branch BUN, CREATININE, CA) POCT GLUCOSE (AUTOMATED) 2022-05-18 03:43:00 DentonPreston [facility] POCT GLUCOSE (AUTOMATED) 2022-05-18 03:43:00 Alexander [facility] CBC WITHOUT DIFF 2022-05-18 00:45:00 [facility] CBC WITHOUT DIFF 2022-05-18 00:45:00 [facility] POCT GLUCOSE (AUTOMATED) 2022-05-17 23:08:00 [facility] POCT GLUCOSE (AUTOMATED) 2022-05-17 23:08:00 DentonPreston [facility] CARDIAC CATHETERIZATION 2022-05-17 21:37:27 [facility] CARDIAC CATHETERIZATION 2022-05-17 21:37:27 [facility] CARDIAC CATHETERIZATION 2022-05-17 21:37:27 [facility] CARDIAC CATHETERIZATION 2022-05-17 21:37:27 [facility] CARDIAC CATHETERIZATION 2022-05-17 21:37:27 [facility] CARDIAC CATHETERIZATION 2022-05-17 21:37:27 [facility] POCT GLUCOSE (AUTOMATED) 2022-05-17 18:12:00 [facility]) 2022-05-17 18:12:00 Rj Rosenthal iversity of [facility] POCT GLUCOSE (AUTOMATED) 2022-05-17 15:02:00 Rj Rosenthal iversity of [facility] POCT GLUCOSE (AUTOMATED) 2022-05-17 15:02:00 Rj Rosenthal iversity of [facility] PHOSPHORUS 2022-05-17 10:39:00 [facility] 2022-05-17 10:39:00 [facility] BASIC METABOLIC PANEL 2022-05-17 10:39:00 Benny [facility] (NA, K, CL, CO2, GLUCOSE, Medica l Branch BUN, CREATININE, CA) CBC WITH DIFF 2022-05-17 10:39:00 Benny [facility] PHOSPHORUS 2022-05-17 10:39:00 Benny [facility] MAGNESIUM 2022-05-17 10:39:00 [facility] BASIC METABOLIC PANEL 2022-05-17 10:39:00 Benny [facility] (NA, K, CL, CO2, GLUCOSE, Medica l Branch BUN, CREATININE, CA) CBC WITH DIFF 2022-05-17 10:39:00 Benny [facility] POCT GLUCOSE (AUTOMATED) 2022-05-17 02:15:00 Rj Rosenthal iversity of [facility] POCT GLUCOSE (AUTOMATED) 2022-05-17 02:15:00 Rj Rosenthal iversity of [facility] POCT GLUCOSE (AUTOMATED) 2022-05-16 23:45:00 Rj Rosenthal iversity of [facility] POCT GLUCOSE (AUTOMATED) 2022-05-16 23:45:00 Rj Rosenthal iversity of [facility] POCT GLUCOSE (AUTOMATED) 2022-05-16 18:50:00 Rj Rosenthal iversity of [facility] POCT GLUCOSE (AUTOMATED) 2022-05-16 18:50:00 Rj Rosenthal iversity of [facility] POCT GLUCOSE (AUTOMATED) 2022-05-16 15:01:00 Rj Rosenthal iversity [facility] POCT GLUCOSE (AUTOMATED) 2022-05-16 15:01:00 Rj Rosenthal iversity [facility] POCT GLUCOSE (AUTOMATED) 2022-05-16 15:01:00 Rj Rosenthal iversity [facility] HB ECG ROUTINE & RHYTHM 2022-05-16 13:56:37 Ervin Cazares [facility] HB ECG ROUTINE & RHYTHM 2022-05-16 13:56:37 Ervin Cazares [facility] PHOSPHORUS 2022-05-16 11:22:00 Benny [facility] MAGNESIUM 2022-05-16 11:22:00 [facility] BASIC METABOLIC PANEL 2022-05-16 11:22:00 Benny [facility] (NA, K, CL, CO2, GLUCOSE, Medica l Branch BUN, CREATININE, CA) PHOSPHORUS 2022-05-16 11:22:00 Benny [facility] MAGNESIUM 2022-05-16 11:22:00 [facility] BASIC METABOLIC PANEL 2022-05-16 11:22:00 Benny Chris [facility] (NA, K, CL, CO2, GLUCOSE, Medica l Branch BUN, CREATININE, CA) PHOSPHORUS 2022-05-16 11:22:00 Benny [facility] MAGNESIUM 2022-05-16 11:22:00 Benny [facility] BASIC METABOLIC PANEL 2022-05-16 11:22:00 Benny [facility] (NA, K, CL, CO2, GLUCOSE, Medica l Branch BUN, CREATININE, CA) POCT GLUCOSE (AUTOMATED) 2022-05-16 03:03:00 Rj Rosenthal iversity [facility] POCT GLUCOSE (AUTOMATED) 2022-05-16 03:03:00 Rj Rosenthal iversity [facility] POCT GLUCOSE (AUTOMATED) 2022-05-16 03:03:00 Rj Rosenthal iversity of [place] [facility] POCT GLUCOSE (AUTOMATED) 2022-05-15 23:14:00 Rj Rosenthal Un iversity of [facility] POCT GLUCOSE (AUTOMATED) 2022-05-15 23:14:00 Rj Rosenthal E Un iversity of [facility] POCT GLUCOSE (AUTOMATED) 2022-05-15 23:14:00 Rj Rosenthal E Un iversity of [facility] POCT GLUCOSE (AUTOMATED) 2022-05-15 18:58:00 Rj Rosenthal E Un iversity of [facility] POCT GLUCOSE (AUTOMATED) 2022-05-15 18:58:00 Rj Rosenthal E Un iversity of [facility] POCT GLUCOSE (AUTOMATED) 2022-05-15 18:58:00 Rj Rosenthal E Un iversity of [facility] POCT GLUCOSE (AUTOMATED) 2022-05-15 14:43:00 Rj Rosenthal E Un iversity of [facility] POCT GLUCOSE (AUTOMATED) 2022-05-15 14:43:00 Rj Rosenthal E Un iversity of [facility] POCT GLUCOSE (AUTOMATED) 2022-05-15 14:43:00 Rj Rosenthal E Un iversity of [facility] HB ECG ROUTINE & RHYTHM 2022-05-15 13:41:24 Ervin Cazares [facility] HB ECG ROUTINE & RHYTHM 2022-05-15 13:41:24 Ervin Cazares [facility] BASIC METABOLIC PANEL 2022-05-15 11:55:00 Chris Zapata [facility] (NA, K, CL, CO2, GLUCOSE, Medica l Branch BUN, CREATININE, CA) BASIC METABOLIC PANEL 2022-05-15 11:55:00 Chris Zapata [facility] (NA, K, CL, CO2, GLUCOSE, Medica l Branch BUN, CREATININE, CA) BASIC METABOLIC PANEL 2022-05-15 11:55:00 Chris Zapata [facility] (NA, K, CL, CO2, GLUCOSE, Medica l Branch BUN, CREATININE, CA) POCT GLUCOSE (AUTOMATED) 2022-05-15 02:08:00 Rj Rosenthal E Un iversity of [facility] POCT GLUCOSE (AUTOMATED) 2022-05-15 02:08:00 Rj Rosenthal E Un iversity of [facility] POCT GLUCOSE (AUTOMATED) 2022-05-15 02:08:00 Rj Rosenthal E Un iversity of [facility] POCT GLUCOSE (AUTOMATED) 2022-05-14 22:20:00 Rj Rosenthal E Un iversity of [facility] POCT GLUCOSE (AUTOMATED) 2022-05-14 22:20:00 Rj Rosenthal E Un iversity of [facility] POCT GLUCOSE (AUTOMATED) 2022-05-14 22:20:00 Rj Rosenthal E Un iversity of [facility] IR CENTRALLY INSERTED 2022-05-14 21:12:04 Alie Lopezer [facility]ity of [place] DEVICE TUNNELED 5 OR Abdelmoneim [facility] OLDER NO PORT/PUMP IR CENTRALLY INSERTED 2022-05-14 21:12:04 Alie Lopez [facility] [place] DEVICE TUNNELED 5 OR Abdelmoneim Medical [facility] OLDER NO PORT/PUMP IR CENTRALLY INSERTED 2022-05-14 21:12:04 DudleyadDelli [facility] [place] DEVICE TUNNELED 5 OR Abdelmoneim Medical [facility] OLDER NO PORT/PUMP PROTHROMBIN TIME / INR 2022-05-14 18:17:00 Alie Lopez Unive rsity of [facility] PROTHROMBIN TIME / INR 2022-05-14 18:17:00 Alie Lopez Unive rsity of [facility] PROTHROMBIN TIME / INR 2022-05-14 18:17:00 Alie Lopez Unive rsity of [facility] POCT GLUCOSE (AUTOMATED) 2022-05-14 18:02:00 Rj Rosenthal E Un iversity of [facility] POCT GLUCOSE (AUTOMATED) 2022-05-14 18:02:00 Rj Rosenthal E Un iversity of [facility] POCT GLUCOSE (AUTOMATED) 2022-05-14 18:02:00 Rj Rosenthal E Un iversity of [facility] POCT GLUCOSE (AUTOMATED) 2022-05-14 15:41:00 [facility] ([facility]OMATED) 2022-05-14 15:41:00 [facility] PO[facility] GLUCOSE (AUTOMATED) 2022-05-14 15:41:00 [facility] HB ECG ROUTINE & RHYTHM 2022-05-14 13:51:11 Ervin Cazares [facility] HB ECG ROUTINE & RHYTHM 2022-05-14 13:51:11 Ervin Cazares [facility] PHOSPHORUS 2022-05-14 11:53:00 Benny [facility] MAGNESIUM 2022-05-14 11:53:00 Benny [facility] BASIC METABOLIC PANEL 2022-05-14 11:53:00 Chris Zapata [facility] (NA, K, CL, CO2, GLUCOSE, Medica l Branch BUN, CREATININE, CA) CBC WITH DIFF 2022-05-14 11:53:00 Benny [facility] CBC WITH DIFF 2022-05-14 11:53:00 Benny [facility] PHOSPHORUS 2022-05-14 11:53:00 Benny [facility] MAGNESIUM 2022-05-14 11:53:00 Benny [facility] BASIC METABOLIC PANEL 2022-05-14 11:53:00 Chris Zapata [facility] (NA, K, CL, CO2, GLUCOSE, Medica l Branch BUN, CREATININE, CA) PHOSPHORUS 2022-05-14 11:53:00 Benny [facility] MAGNESIUM 2022-05-14 11:53:00 Benny [facility] BASIC METABOLIC PANEL 2022-05-14 11:53:00 Chris Zapata [facility] (NA, K, CL, CO2, GLUCOSE, Medica l Branch BUN, CREATININE, CA) CBC WITH DIFF 2022-05-14 11:53:00 Benny [facility] POCT GLUCOSE (AUTOMATED) 2022-05-14 03:19:00 Rj Rosenthal Un iversity of [facility] POCT GLUCOSE (AUTOMATED) 2022-05-14 03:19:00 Rj Rosenthal [facility] [place] [facility] PO[facility] GLUCOSE (AUTOMATED) 2022-05-14 03:19:00 Rj Rosenthal [facility] POCT GLUCOSE (AUTOMATED) 2022-05-13 23:23:00 Rj Rosenthal [facility] POCT GLUCOSE (AUTOMATED) 2022-05-13 23:23:00 Rj Rosenthal [facility] POCT GLUCOSE (AUTOMATED) 2022-05-13 23:23:00 Rj Rosenthal [facility] HEPATITIS B SURFACE 2022-05-13 21:41:00 Benny Chris [facility] ANTIBODY [facility] HEPATITIS B SURFACE 2022-05-13 21:41:00 Benny [facility] ANTIGEN [facility] HCV ANTIBODY 2022-05-13 21:41:00 Benny [facility] HBC ANTIBODY (IGM & IGG) 2022-05-13 21:41:00 Benny Chris [facility] HCV ANTIBODY 2022-05-13 21:41:00 Benny [facility] HEPATITIS B SURFACE 2022-05-13 21:41:00 Benny [facility] ANTIBODY [facility] HEPATITIS B SURFACE 2022-05-13 21:41:00 Benny [facility] ANTIGEN [facility] HBC ANTIBODY (IGM & IGG) 2022-05-13 21:41:00 Benny Chris [facility] HEPATITIS B SURFACE 2022-05-13 21:41:00 Benny [facility] ANTIBODY [facility] HEPATITIS B SURFACE 2022-05-13 21:41:00 Benny Chris [facility] ANTIGEN [facility] HCV ANTIBODY 2022-05-13 21:41:00 Benny [facility] HBC ANTIBODY (IGM & IGG) 2022-05-13 21:41:00 Benny Chris [facility] POCT GLUCOSE (AUTOMATED) 2022-05-13 18:27:00 Rj [facility] POCT GLUCOSE (AUTOMATED) 2022-05-13 18:27:00 Rj Rosenthal [facility] POCT GLUCOSE (AUTOMATED) 2022-05-13 18:27:00 Rj Rosenthal [facility] POCT GLUCOSE (AUTOMATED) 2022-05-13 15:18:00 Rj [facility] POCT GLUCOSE (AUTOMATED) 2022-05-13 15:18:00 Rj Rosenthal [facility] POCT GLUCOSE (AUTOMATED) 2022-05-13 15:18:00 Rj Rosenthal Un [facility] HB ECG ROUTINE & RHYTHM 2022-05-13 14:39:56 Ervin Cazares [facility] HB ECG ROUTINE & RHYTHM 2022-05-13 14:39:56 Ervin Cazares [facility] HB ECG ROUTINE & RHYTHM 2022-05-13 14:39:56 Ervin Cazares [facility] MAGNESIUM 2022-05-13 11:38:00 Benny Chris [facility] BASIC METABOLIC PANEL 2022-05-13 11:38:00 Benny Chris [facility] (NA, K, CL, CO2, GLUCOSE, [facility]ica [facility] Branch BUN, CREATININE, CA) MAGNESIUM 2022-05-13 11:38:00 Benny [facility] BASIC METABOLIC PANEL 2022-05-13 11:38:00 Chris Zapata [facility] (NA, K, CL, CO2, GLUCOSE, [facility] BUN, CREATININE, CA) MAGNESIUM 2022-05-13 11:38:00 Benny [facility] BASIC METABOLIC PANEL 2022-05-13 11:38:00 Benny Chris [facility] (NA, K, CL, CO2, GLUCOSE, [facility] BUN, CREATININE, CA) POCT GLUCOSE (AUTOMATED) 2022-05-13 06:44:00 Rj Rosenthal [facility] POCT GLUCOSE (AUTOMATED) 2022-05-13 06:44:00 Rj Rosenthal [facility] POCT GLUCOSE (AUTOMATED) 2022-05-13 06:44:00 Rj Rosenthal E [facility] POCT GLUCOSE (AUTOMATED) 2022-05-13 02:58:00 Rj Rosenthal E [facility] POCT GLUCOSE (AUTOMATED) 2022-05-13 02:58:00 Rj Rosenthal E [facility] POCT GLUCOSE (AUTOMATED) 2022-05-13 02:58:00 Rj Rosenthal E [facility] POCT GLUCOSE (AUTOMATED) 2022-05-13 00:41:00 Rj Rosenthal E [facility] POCT GLUCOSE (AUTOMATED) 2022-05-13 00:41:00 Rj Rosenthal E [facility] POCT GLUCOSE (AUTOMATED) 2022-05-13 00:41:00 Rj Rosenthal [facility] POCT GLUCOSE (AUTOMATED) 2022-05-12 17:40:00 Rj Rosenthal E [facility] POCT GLUCOSE (AUTOMATED) 2022-05-12 17:40:00 Rj Rosenthal E [facility] POCT GLUCOSE (AUTOMATED) 2022-05-12 17:40:00 Rj Rosenthal E [facility] POCT GLUCOSE (AUTOMATED) 2022-05-12 15:36:00 Rj Rosenthal E [facility] POCT GLUCOSE (AUTOMATED) 2022-05-12 15:36:00 Rj Rosenthal E [facility] POCT GLUCOSE (AUTOMATED) 2022-05-12 15:36:00 Rj Rosenthal E [facility] HB ECG ROUTINE & RHYTHM 2022-05-12 14:14:58 Ofelia [facility] HB ECG ROUTINE & RHYTHM 2022-05-12 14:14:58 Ofelia [facility] HB ECG ROUTINE & RHYTHM 2022-05-12 14:14:58 Olena Gilbert [facility] PHOSPHORUS 2022-05-12 10:48:00 [facility] MAGNESIUM 2022-05-12 10:48:00 [facility] BASIC METABOLIC PANEL 2022-05-12 10:48[facility], CO2, GLUCOSE, [facility] BUN, CREATININE, CA) CBC WITH DIFF 2022-05-12 10:48:00 Benny [facility] PHOSPHORUS 2022-05-12 10:48:00 Jesus [facility] BASIC METABOLIC PANEL 2022-05-12 10:48:00 Jesus, [facility] [place] (NA, K, CL, CO2, GLUCOSE, [facility] BUN, CREATININE, CA) MAGNESIUM 2022-05-12 10:48:00 [facility] CBC WITH DIFF 2022-05-12 10:48:00 Benny [facility] PHOSPHORUS 2022-05-12 10:48:00 Jesus [facility] MAGNESIUM 2022-05-12 10:48:00 Jesus [facility] BASIC METABOLIC PANEL 2022-05-12 10:48:00 Jesus [facility] [place] (NA, K, CL, CO2, GLUCOSE, [facility] BUN, CREATININE, CA) CBC WITH DIFF 2022-05-12 10:48:00 Benny [facility] POCT GLUCOSE (AUTOMATED) 2022-05-12 02:49:00 Rj Rosenthal iversity [facility] POCT GLUCOSE (AUTOMATED) 2022-05-12 02:49:00 Rj Rosenthal [facility] POCT GLUCOSE (AUTOMATED) 2022-05-12 02:49:00 Rj Rosenthal Un [facility] POCT GLUCOSE (AUTOMATED) 2022-05-11 23:40:00 Rj Rosenthal iversity [facility] POCT GLUCOSE (AUTOMATED) 2022-05-11 23:40:00 Rj Rosenthal [facility] POCT GLUCOSE (AUTOMATED) 2022-05-11 23:40:00 Rj Rosenthal [facility] POCT GLUCOSE (AUTOMATED) 2022-05-11 17:37:00 Rj Rosenthal [facility] POCT GLUCOSE (AUTOMATED) 2022-05-11 17:37:00 Rj Rosenthal [facility] POCT GLUCOSE (AUTOMATED) 2022-05-11 17:37:00 Rj Rosenthal [facility] HB ECG ROUTINE & RHYTHM 2022-05-11 14:04:51 Ofelia [facility] HB ECG ROUTINE & RHYTHM 2022-05-11 14:04:[facility] RHYTHM 2022-05-11 14:04:51 Ofelia [facility] POCT GLUCOSE (AUTOMATED) 2022-05-11 13:51:00 Rj Rosenthal [facility] POCT GLUCOSE (AUTOMATED) 2022-05-11 13:51:00 Rj Rosenthal [facility] POCT GLUCOSE (AUTOMATED) 2022-05-11 13:51:00 [facility]FF 2022-05-11 11:21:00 Chris Zapata [facility] PHOSPHORUS 2022-05-11 11:21:00 Benny [facility] MAGNESIUM 2022-05-11 11:21:00 Benny [facility] BASIC METABOLIC PANEL 2022-05-11 11:21:00 Chris Zapata [facility] (NA, K, CL, CO2, GLUCOSE, [facility] Branch BUN, CREATININE, CA) CBC WITH DIFF 2022-05-11 11:21:00 Benny [facility] CBC WITH DIFF 2022-05-11 11:21:00 Benny Chris [facility] PHOSPHORUS 2022-05-11 11:21:00 Benny [facility] MAGNESIUM 2022-05-11 11:21:00 Benyn [facility] BASIC METABOLIC PANEL 2022-05-11 11:21:00 Benny [facility] (NA, K, CL, CO2, GLUCOSE, Medica [facility] Branch BUN, CREATININE, CA) PHOSPHORUS 2022-05-11 11:21:00 Benny [facility] MAGNESIUM 2022-05-11 11:21:00 Benny [facility] BASIC METABOLIC PANEL 2022-05-11 11:21:00 Benny [facility] (NA, K, CL, CO2, GLUCOSE, [facility] BUN, CREATININE, CA) POCT GLUCOSE (AUTOMATED) 2022-05-11 01:49:00 Rj Rosenthal [facility] POCT GLUCOSE (AUTOMATED) 2022-05-11 01:49:00 Rj Rosenthal [facility] POCT GLUCOSE (AUTOMATED) 2022-05-11 01:49:00 Rj Rosenthal [facility] POCT GLUCOSE (AUTOMATED) 2022-05-10 23:35:00 Rj Rosenthal [facility] POCT GLUCOSE (AUTOMATED) 2022-05-10 23:35:00 Rj Rosenthal [facility] POCT GLUCOSE (AUTOMATED) 2022-05-10 23:35:00 Rj Rosenthal [facility] POCT GLUCOSE (AUTOMATED) 2022-05-10 17:55:00 Rj Rosenthal [facility] POCT GLUCOSE (AUTOMATED) 2022-05-10 17:55:00 Rj Rosenthal [facility] POCT GLUCOSE (AUTOMATED) 2022-05-10 17:55:00 Rj Rosenthal [facility] COMPLETE ECHOCARDIOGRAM 2022-05-10 16:01:46 [facility] DOBUTAMINE STRESS TEST W [facility] CONTRAST COMPLETE ECHOCARDIOGRAM 2022-05-10 16:01:46 [facility] DOBUTAMINE STRESS TEST W [facility] CONTRAST COMPLETE ECHOCARDIOGRAM 2022-05-10 16:01:46 [facility] DOBUTAMINE STRESS TEST W [facility] CONTRAST POCT GLUCOSE (AUTOMATED) 2022-05-10 14:17:00 [facility] ([facility]OMATED) 2022-05-10 14:17:00 [facility] PO[facility]SE (AUTOMATED) 2022-05-10 14:17:00 [facility] 2022-05-10 09:53:00 Dorothea [facility] MAGNESIUM 2022-05-10 09:53:00 [facility] 2022-05-10 09:53[facility]00 [facility], [facility], CO2, GLUCOSE, [facility] BUN, CREATININE, CA) CBC WITH DIFF 2022-05-10 09:53:00 Dorothea [facility] CBC WITH DIFF 2022-05-10 09:53:00 Dorothea [facility] BASIC METABOLIC PANEL 2022-05-10 09:53:00 Amjennifer [facility] (NA, K, CL, CO2, GLUCOSE, Medica [facility] Branch BUN, CREATININE, CA) MAGNESIUM 2022-05-10 09:53:00 Dorothea [facility] PHOSPHORUS 2022-05-10 09:53:00 Amjennifer [facility] PHOSPHORUS 2022-05-10 09:53:00 Amjennifer [facility] MAGNESIUM 2022-05-10 09:53:00 Amjennifer [facility] BASIC METABOLIC PANEL 2022-05-10 09:53:00 [facility] ([facility], K, CL, CO2, GLUCOSE, [facility] Branch BUN, CREATININE, CA) CBC WITH DIFF 2022-05-10 09:53:00 Dor[facility]a [facility] DOBUTAMINE STRESS ECHO 2022-05-10 06:01:00 Doctor Unassigned, No [facility] POCT GLUCOSE (AUTOMATED) 2022-05-10 02:07:00 Rj Rosenthal [facility] POCT GLUCOSE (AUTOMATED) 2022-05-10 02:07:00 Rj Rosenthal [facility] POCT GLUCOSE (AUTOMATED) 2022-05-10 02:07:00 Rj Rosenthal [facility] POCT GLUCOSE (AUTOMATED) 2022-05-09 22:32:00 Rj Rosenthal [facility] POCT GLUCOSE (AUTOMATED) 2022-05-09 22:32:00 Rj Rosenthal E [facility] POCT GLUCOSE (AUTOMATED) 2022-05-09 22:32:00 Rj Rosenthal E [facility] POCT GLUCOSE (AUTOMATED) 2022-05-09 18:08:00 Rj Rosenthal [facility] POCT GLUCOSE (AUTOMATED) 2022-05-09 18:08:00 Rj Rosenthal [facility] POCT GLUCOSE (AUTOMATED) 2022-05-09 18:08:00 Rj Rosenthal [facility] POCT GLUCOSE (AUTOMATED) 2022-05-09 14:49:00 Rj Rosenthal E [facility] POCT GLUCOSE (AUTOMATED) 2022-05-09 14:49:00 Rj Rosenthal E [facility] POCT GLUCOSE (AUTOMATED) 2022-05-09 14:49:00 Rj Rosenthal E [facility] HB ECG ROUTINE & RHYTHM 2022-05-09 14:48:56 Ofelia [facility] HB ECG ROUTINE & RHYTHM 2022-05-09 14:48:56 Ofelia [facility] HB ECG ROUTINE & RHYTHM 2022-05-09 14:48:56 Ofelia [facility] PHOSPHORUS 2022-05-09 10:14:00 Jesus, [facility] acute [facility] MAGNESIUM 2022-05-09 10:14[facility]00 [facility]-05-09 [facility], CO2, GLUCOSE, [facility] BUN, CREATININE, CA) PHOSPHORUS 2022-05-09 10:14:00 [facility] 2022-05-09 10:14:00 [facility] 2022-05-09 10:14[facility]00 [facility] ([facility], [facility], CL, CO2, GLUCOSE, [facility] BUN, CREATININE, CA) PHOSPHORUS 2022-05-09 10:14:00 [facility] 2022-05-09 10:14:00 [facility] BASIC METABOLIC PANEL 2022-05-09 10:14:00 Jesus [facility] [place] (NA, K, CL, CO2, GLUCOSE, [facility] BUN, CREATININE, CA) POCT GLUCOSE (AUTOMATED) 2022-05-09 03:15:00 Rj Rosenthal [facility] POCT GLUCOSE (AUTOMATED) 2022-05-09 03:15:00 Rj Rosenthal [facility] POCT GLUCOSE (AUTOMATED) 2022-05-09 03:15:00 Rj Rosenthal [facility] POCT GLUCOSE (AUTOMATED) 2022-05-08 23:13:00 Rj Rosenthal [facility] POCT GLUCOSE (AUTOMATED) 2022-05-08 23:13:00 Rj Rosenthal [facility] POCT GLUCOSE (AUTOMATED) 2022-05-08 23:13:00 Rj Rosenthal [facility] HEPATITIS B SURFACE 2022-05-08 21:20:00 Angeles Ferrer [facility] HEPATITIS B SURFACE 2022-05-08 21:20:00 [facility] HEPATITIS B SURFACE 2022-05-08 21:20:00 Angeles Ferrer [facility] ANTIBODY [facility] POCT GLUCOSE (AUTOMATED) 2022-05-08 18:06:00 Rj Rosenthal [facility] POCT GLUCOSE (AUTOMATED) 2022-05-08 18:06:00 Rj Rosenthal [facility] POCT GLUCOSE (AUTOMATED) 2022-05-08 18:06:00 Rj Rosenthal [facility] POCT GLUCOSE (AUTOMATED) 2022-05-08 15:23:00 Rj Rosenthal [facility] POCT GLUCOSE (AUTOMATED) 2022-05-08 15:23:00 Rj Rosenthal [facility] POCT GLUCOSE (AUTOMATED) 2022-05-08 15:23:00 Rj Rosenthal [facility] PHOSPHORUS 2022-05-08 12:30:00 Benny Chris [facility] MAGNESIUM 2022-05-08 12:30:00 Benny [facility] BASIC METABOLIC PANEL 2022-05-08 12:30:00 Chris Zapata [facility] (NA, K, CL, CO2, GLUCOSE, Medica [facility] Branch BUN, CREATININE, CA) CBC WITH DIFF 2022-05-08 12:30:00 Benny [facility] HEPATITIS B SURFACE 2022-05-08 12:30:00 Angeles Ferrer [facility] ANTIGEN [facility] CBC WITH DIFF 2022-05-08 12:30:00 Benny [facility] PHOSPHORUS 2022-05-08 12:30:00 Benny [facility] MAGNESIUM 2022-05-08 12:30:00 Benny [facility] BASIC METABOLIC PANEL 2022-05-08 12:30:00 Benny Chris [facility] (NA, K, CL, CO2, GLUCOSE, Medica [facility] Branch BUN, CREATININE, CA) HEPATITIS B SURFACE 2022-05-08 12:30:00 Angeles Ferrer [facility] PHOSPHORUS 2022-05-08 12:30:00 Benny Chris [facility] MAGNESIUM 2022-05-08 12:30:00 Benny [facility] BASIC METABOLIC PANEL 2022-05-08 12:30:00 Chris Zapata [facility] (NA, K, CL, CO2, GLUCOSE, Medica [facility] Branch BUN, CREATININE, CA) CBC WITH DIFF 2022-05-08 12:30:00 Benny Chris [facility] HEPATITIS B SURFACE 2022-05-08 12:30:00 Angeles Ferrer [facility] POCT GLUCOSE (AUTOMATED) 2022-05-08 04:37:00 Rj Rosenthal [facility] POCT GLUCOSE (AUTOMATED) 2022-05-08 04:37:00 Rj Rosenthal [facility] POCT GLUCOSE (AUTOMATED) 2022-05-08 04:37:00 Rj Rosenthal [facility] POCT GLUCOSE (AUTOMATED) 2022-05-07 23:08:00 Rj Rosenthal [facility] POCT GLUCOSE (AUTOMATED) 2022-05-07 23:08:00 Rj Rosenthal [facility] POCT GLUCOSE (AUTOMATED) 2022-05-07 23:08:00 Rj Rosenthal [facility] XR CHEST 1 VW 2022-05-07 21:58:08 Benny Chris [facility] XR CHEST 1 VW 2022-05-07 21:58:08 Benny Chris [facility] XR CHEST 1 VW 2022-05-07 21:58:08 Benny Chris [facility] POCT GLUCOSE (AUTOMATED) 2022-05-07 18:49:00 Rj Rosenthal [facility] POCT GLUCOSE (AUTOMATED) 2022-05-07 18:49:00 Rj Rosenthal [facility] POCT GLUCOSE (AUTOMATED) 2022-05-07 18:49:00 [facility] ([facility]OMATED) 2022-05-07 14:33:00 [facility] (AUTOMATED) 2022-05-07 14:33:00 [facility]SE (AUTOMATED) 2022-05-07 14:33:00 [facility] ROUTINE & RHYTHM 2022-05-07 13:33:50 Ofelia [facility] HB ECG ROUTINE & RHYTHM 2022-05-07 13:33:50 Ofelia [facility] HB ECG ROUTINE & RHYTHM 2022-05-07 13:33:50 Ofelia [facility] PHOSPHORUS 2022-05-07 12:04:00 Benny [facility] MAGNESIUM 2022-05-07 12:04:00 Benny [facility] BASIC METABOLIC PANEL 2022-05-07 12:04:00 Benny Chris [facility] (NA, K, CL, CO2, GLUCOSE, Medica [facility] Branch BUN, CREATININE, CA) MAGNESIUM 2022-05-07 12:04:00 Benny [facility] BASIC METABOLIC PANEL 2022-05-07 12:04:00 Benny Chris [facility] (NA, K, CL, CO2, GLUCOSE, Medica [facility] Branch BUN, CREATININE, CA) PHOSPHORUS 2022-05-07 12:04:00 Benny [facility] PHOSPHORUS 2022-05-07 12:04:00 Benny [facility] MAGNESIUM 2022-05-07 12:04:00 Benny [facility] BASIC METABOLIC PANEL 2022-05-07 12:04:00 Benny Chris [facility] (NA, K, CL, CO2, GLUCOSE, [facility] Branch BUN, CREATININE, CA) CBC WITH DIFF 2022-05-07 12:03:00 Benny Chris [facility] CBC WITH DIFF 2022-05-07 12:03:00 [facility] CBC WITH DIFF 2022-05-07 12:03:00 [facility] POCT GLUCOSE (AUTOMATED) 2022-05-07 05:22:00 Rj Rosenthal [facility] POCT GLUCOSE (AUTOMATED) 2022-05-07 05:22:00 Rj Rosenthal [facility] POCT GLUCOSE (AUTOMATED) 2022-05-07 05:22:00 Rj Rosenthal [facility] POCT GLUCOSE (AUTOMATED) 2022-05-07 00:17:00 Rj Rosenthal [facility] POCT GLUCOSE (AUTOMATED) 2022-05-07 00:17:00 Rj Rosenthal [facility] POCT GLUCOSE (AUTOMATED) 2022-05-07 00:17:00 Rj Rosenthal [facility] POCT GLUCOSE (AUTOMATED) 2022-05-06 19:46:00 Rj Rosenthal [facility] POCT GLUCOSE (AUTOMATED) 2022-05-06 19:46:00 Rj Rosenthal [facility] POCT GLUCOSE (AUTOMATED) 2022-05-06 19:46:00 Rj Rosenthal [facility] POCT GLUCOSE (AUTOMATED) 2022-05-06 17:59:00 Rj Rosenthal [facility] POCT GLUCOSE (AUTOMATED) 2022-05-06 17:59:00 Rj Rosenthal [facility] POCT GLUCOSE (AUTOMATED) 2022-05-06 17:59:00 Rj Rosenthal [facility] POCT GLUCOSE (AUTOMATED) 2022-05-06 14:20:00 Rj Rosenthal [facility] POCT GLUCOSE (AUTOMATED) 2022-05-06 14:20:00 Rj Rosenthal [facility] POCT GLUCOSE (AUTOMATED) 2022-05-06 14:20:00 Rj Rosenthal [facility] HB ECG ROUTINE & RHYTHM 2022-05-06 13:35:32 Ofelia [facility] HB ECG ROUTINE & RHYTHM 2022-05-06 13:35:32 Ofelia [facility] HB ECG ROUTINE & RHYTHM 2022-05-06 13:35:32 Ofelia [facility] PHOSPHORUS 2022-05-06 12:05:00 Benny [facility] MAGNESIUM 2022-05-06 12:05:00 Benny [facility] BASIC METABOLIC PANEL 2022-05-06 12:05:00 Benny Chris [facility] (NA, K, CL, CO2, GLUCOSE, [facility] Branch BUN, CREATININE, CA) CBC WITH DIFF 2022-05-06 12:05:00 Benny [facility] CBC WITH DIFF 2022-05-06 12:05:00 Benny [facility] PHOSPHORUS 2022-05-06 12:05:00 Benny [facility] MAGNESIUM 2022-05-06 12:05:00 Benny [facility] BASIC METABOLIC PANEL 2022-05-06 12:05:00 Benny Chris [facility] (NA, K, CL, CO2, GLUCOSE, [facility] BUN, CREATININE, CA) PHOSPHORUS 2022-05-06 12:05:00 Benny [facility] MAGNESIUM 2022-05-06 12:05:00 Benny [facility] BASIC METABOLIC PANEL 2022-05-06 12:05:00 Benny Chris [facility] (NA, K, CL, CO2, GLUCOSE, [facility] BUN, CREATININE, CA) CBC WITH DIFF 2022-05-06 12:05:00 Benny [facility] POCT GLUCOSE (AUTOMATED) 2022-05-06 04:41:00 [facility] ([facility]OMATED) 2022-05-06 04:41:00 [facility]SE (AUTOMATED) 2022-05-06 04:41:00 Rj Rosenthal [facility] POCT GLUCOSE (AUTOMATED) 2022-05-05 22:57:00 Rj Rosenthal [facility] POCT GLUCOSE (AUTOMATED) 2022-05-05 22:57:00 Rj Rosenthal [facility] POCT GLUCOSE (AUTOMATED) 2022-05-05 22:57:00 Rj Rosenthal [facility] POCT GLUCOSE (AUTOMATED) 2022-05-05 18:27:00 Rj Rosenthal [facility] POCT GLUCOSE (AUTOMATED) 2022-05-05 18:27:00 Rj Rosenthal [facility] POCT GLUCOSE (AUTOMATED) 2022-05-05 18:27:00 Rj Rosenthal [facility] POCT GLUCOSE (AUTOMATED) 2022-05-05 14:20:00 [facility]j [facility] POCT GLUCOSE (AUTOMATED) 2022-05-05 14:20:00 Rj Rosenthal [facility] POCT GLUCOSE (AUTOMATED) 2022-05-05 14:20:00 Rj Rosenthal [facility] HB ECG ROUTINE & RHYTHM 2022-05-05 14:12:39 [facility] [facility] HB ECG ROUTINE & RHYTHM 2022-05-05 14:12:39 Ofelia [facility] HB ECG ROUTINE & RHYTHM 2022-05-05 14:12:39 Ofelia [facility] PHOSPHORUS 2022-05-05 11:13:00 Benny Chris [facility] MAGNESIUM 2022-05-05 11:13:00 Benny [facility] BASIC METABOLIC PANEL 2022-05-05 11:13:00 Chris Zapata [facility] (NA, K, CL, CO2, GLUCOSE, Medica l Branch BUN, CREATININE, CA) CBC WITH DIFF 2022-05-05 11:13:00 Benny [facility] N-TERMINAL PRO-BNP 2022-05-05 11:13:00 Benny [facility] CBC WITH DIFF 2022-05-05 11:13:00 Benny [facility] PHOSPHORUS 2022-05-05 11:13:00 Benny [facility] MAGNESIUM 2022-05-05 11:13:00 Benny [facility] BASIC METABOLIC PANEL 2022-05-05 11:13:00 Benny Chris [facility] (NA, K, CL, CO2, GLUCOSE, Medica l Branch BUN, CREATININE, CA) N-TERMINAL PRO-BNP 2022-05-05 11:13:[address] [facility] PHOSPHORUS 2022-05-05 11:13:00 Benny [facility] MAGNESIUM 2022-05-05 11:13:00 Benny [facility] BASIC METABOLIC PANEL 2022-05-05 11:13:00 Benny Chris [facility] (NA, K, CL, CO2, GLUCOSE, Medica l Branch BUN, CREATININE, CA) CBC WITH DIFF 2022-05-05 11:13:00 Benny [facility] N-TERMINAL PRO-BNP 2022-05-05 11:13:[address] [facility] POCT GLUCOSE (AUTOMATED) 2022-05-05 02:47:00 Rj Rosenthal iversity of [facility] POCT GLUCOSE (AUTOMATED) 2022-05-05 02:47:00 Rj Rosenthal Un [facility] of [facility] POCT GLUCOSE (AUTOMATED) 2022-05-05 02:47:00 Rj Rosenthal [facility] of [facility] POCT GLUCOSE (AUTOMATED) 2022-05-04 23:29:00 Rj Rosenthal [facility] POCT GLUCOSE (AUTOMATED) 2022-05-04 23:29:00 Rj Rosenthal [facility] POCT GLUCOSE (AUTOMATED) 2022-05-04 23:29:00 Rj Rosenthal Un iversity [facility] POCT GLUCOSE (AUTOMATED) 2022-05-04 18:27:00 Rj Rosenthal [facility] POCT GLUCOSE (AUTOMATED) 2022-05-04 18:27:00 Rj Rosenthal [facility] POCT GLUCOSE (AUTOMATED) 2022-05-04 18:27:00 Rj Rosenthal [facility] POCT GLUCOSE (AUTOMATED) 2022-05-04 14:48:00 Rj Rosenthal [facility] POCT GLUCOSE (AUTOMATED) 2022-05-04 14:48:00 Rj Rosenthal [facility] POCT GLUCOSE (AUTOMATED) 2022-05-04 14:48:00 Rj Rosenthal Un iversity [facility] HB ECG ROUTINE & RHYTHM 2022-05-04 14:44:54 [facility] & RHYTHM 2022-05-04 14:44:54 Ofelia [facility] HB ECG ROUTINE & RHYTHM 2022-05-04 14:44:54 Ofelia [facility] PHOSPHORUS 2022-05-04 09:26:00 Benny [facility] MAGNESIUM 2022-05-04 09:26:00 Benny [facility] BASIC METABOLIC PANEL 2022-05-04 09:26:00 Chris Zapata [facility] (NA, K, CL, CO2, GLUCOSE, Medica l Branch BUN, CREATININE, CA) CBC WITH DIFF 2022-05-04 09:26:00 Benny [facility] CBC WITH DIFF 2022-05-04 09:26:00 Benny [facility] PHOSPHORUS 2022-05-04 09:26:00 Benny [facility] MAGNESIUM 2022-05-04 09:26:00 Benny [facility] BASIC METABOLIC PANEL 2022-05-04 09:26:00 Chris Zapata [facility] (NA, K, CL, CO2, GLUCOSE, Medica l Branch BUN, CREATININE, CA) PHOSPHORUS 2022-05-04 09:26:00 Benny Chris [facility] MAGNESIUM 2022-05-04 09:26:[facility]OLIC PANEL 2022-05-04 09:26:00 Chris Zapata [facility] (NA, K, CL, CO2, GLUCOSE, Medica l Branch BUN, CREATININE, CA) CBC WITH DIFF 2022-05-04 09:26:00 [facility] POCT GLUCOSE (AUTOMATED) 2022-05-04 03:12:00 Rj Rosenthal [facility] POCT GLUCOSE (AUTOMATED) 2022-05-04 03:12:00 Rj Rosenthal [facility] POCT GLUCOSE (AUTOMATED) 2022-05-04 03:12:00 Rj Rosenthal [facility] POCT GLUCOSE (AUTOMATED) 2022-05-03 23:02:00 Rj Rosenthal [facility] POCT GLUCOSE (AUTOMATED) 2022-05-03 23:02:00 Rj Rosenthal [facility] POCT GLUCOSE (AUTOMATED) 2022-05-03 23:02:00 Rj Rosenthal [facility] POCT GLUCOSE (AUTOMATED) 2022-05-03 18:17:00 Rj Rosenthal [facility] POCT GLUCOSE (AUTOMATED) 2022-05-03 18:17:00 Rj Rosenthal [facility] POCT GLUCOSE (AUTOMATED) 2022-05-03 18:17:00 Rj Rosenthal Un [facility] TRANSTHORACIC ECHO (TTE) 2022-05-03 17:55:00 Olena Gilbert of [facility] W/ CONTRAST [facility] TRANSTHORACIC ECHO (TTE) 2022-05-03 17:55:00 Olena Gilbertity of [facility] W/ CONTRAST [facility] TRANSTHORACIC ECHO (TTE) 2022-05-03 17:55:00 Olena Gilbert of [facility] W/ CONTRAST Medical [facility] HB ECG ROUTINE & RHYTHM 2022-05-03 16:14:16 Ofelia [facility] HB ECG ROUTINE & RHYTHM 2022-05-03 16:14:16 Ofelia [facility] HB ECG ROUTINE & RHYTHM 2022-05-03 16:14:16 Ofelia [facility] POCT GLUCOSE (AUTOMATED) 2022-05-03 14:18:00 [facility] PO[facility]SE (AUTOMATED) 2022-05-03 14:18:00 [facility] POCT GLUCOSE (AUTOMATED) 2022-05-03 14:18:00 [facility] 2022-05-03 07:40:00 [facility] MAGNESIUM 2022-05-03 07:40:00 [facility] COMP. METABOLIC PANEL 2022-05-03 07:40:00 [facility] ([id number]) [facility] INTACT PTH CALCIUM GROUP 2022-05-03 07:40:00 Chris Zapata [facility] INTACT PTH CALCIUM GROUP 2022-05-03 07:40:00 Chris Zapata [facility] MAGNESIUM 2022-05-03 07:40:00 [facility] COMP. METABOLIC PANEL 2022-05-03 07:40:00 [facility] ([id number]) [facility] PHOSPHORUS 2022-05-03 07:40:00 [facility] PHOSPHORUS 2022-05-03 07:40:00 [facility] MAGNESIUM 2022-05-03 07:40:00 [facility] COMP. METABOLIC PANEL 2022-05-03 07:40:00 [facility] ([id number]) [facility] INTACT PTH CALCIUM GROUP 2022-05-03 07:40:00 Chris Zapata [facility] ACUTE CARE ARTERIAL BLOOD 2022-05-03 07:39:00 Olena Gilbert Un iversity of [facility] ACUTE CARE ARTERIAL BLOOD 2022-05-03 07:39:00 Olena Gilbert Un iversity of [facility] ACUTE CARE ARTERIAL BLOOD 2022-05-03 07:39:00 Olena Gilbert Un i[facility]ity of [facility] POCT GLUCOSE (AUTOMATED) 2022-05-03 03:30:00 Rj Rosenthal Un [facility] POCT GLUCOSE (AUTOMATED) 2022-05-03 03:30:00 Rj Rosenthal Un [facility] POCT GLUCOSE (AUTOMATED) 2022-05-03 03:30:00 Rj Rosenthal [facility] POCT GLUCOSE (AUTOMATED) 2022-05-03 00:04:00 Rj Rosenthal [facility] POCT GLUCOSE (AUTOMATED) 2022-05-03 00:04:00 Rj Rosenthal [facility] POCT GLUCOSE (AUTOMATED) 2022-05-03 00:04:00 Rj Rosenthal Un iversity of [facility] AC PANEL 20 + LACTIC ACID 2022-05-02 21:58:00 Gerardo Pfeiffer Un iversity of [facility] AC PANEL 20 + LACTIC ACID 2022-05-02 21:58:00 Gerardo Pfeiffer Un iversity of [facility] AC PANEL 20 + LACTIC ACID 2022-05-02 21:58:00 Gerardo Pfeiffer iversity of [facility] POCT GLUCOSE (AUTOMATED) 2022-05-02 19:36:00 Rj Rosenthal Un iversity of [facility] POCT GLUCOSE (AUTOMATED) 2022-05-02 19:36:00 Rj Rosenthal Un i[facility] of [facility] POCT GLUCOSE (AUTOMATED) 2022-05-02 19:36:00 Rj Rosenthal Un iversity of [facility] POCT GLUCOSE (AUTOMATED) 2022-05-02 15:21:00 Rj Rosenthal Un iversity of [facility] POCT GLUCOSE (AUTOMATED) 2022-05-02 15:21:00 Rj Rosenthal [facility] POCT GLUCOSE (AUTOMATED) 2022-05-02 15:21:00 Rj Rosenthal [facility] HB ECG ROUTINE & RHYTHM 2022-05-02 07:03:46 [facility] & RHYTHM 2022-05-02 07:03:46 Ofelia [facility] HB ECG ROUTINE & RHYTHM 2022-05-02 07:03:46 Ofelia [facility] EXTRA TUBE LAV 2022-05-02 06:09:00 [facility] EXTRA TUBE LAV 2022-05-02 06:09:00 [facility] EXTRA TUBE LAV 2022-05-02 06:09:00 [facility] ACUTE CARE ARTERIAL BLOOD 2022-05-02 06:08:00 [facility] 2022-05-02 06:08:00 [facility]LOOD 2022-05-02 06:08:00 [facility] PHOS[facility]US 2022-05-02 05:57:00 Olena Gilbert [facility] MAGNESIUM 2022-05-02 05:57:00 Ofelia [facility] TROPONIN I 2022-05-02 05:57:00 Olena Gilbert [facility] BASIC METABOLIC PANEL 2022-05-02 05:57:00 Olena Gilbert [facility] (NA, K, CL, CO2, GLUCOSE, Medica l Branch BUN, CREATININE, CA) LIPID PANEL ([id number])(TOTAL 2022-05-02 05:57:00 Olena Gilbert [facility] CHOLESTEROL, [facility] TRIGLYCERIDES, HDL) PROTHROMBIN TIME / INR 2022-05-02 05:57:00 [facility] ACTIV[facility] PARTIAL 2022-05-02 05:57:00 Ofelia [facility] TROPONIN I 2022-05-02 05:57:00 Ofelia [facility] PHOSPHORUS 2022-05-02 05:57:00 Ofelia [facility] MAGNESIUM 2022-05-02 05:57:00 Ofelia [facility] BASIC METABOLIC PANEL 2022-05-02 05:57:00 Ofelia [facility] (NA, K, CL, CO2, GLUCOSE, Medica l Branch BUN, CREATININE, CA) LIPID PANEL ([id number])(TOTAL 2022-05-02 05:57:00 Olena Gilbert [facility] CHOLESTEROL, [facility] TRIGLYCERIDES, HDL) PROTHROMBIN TIME / INR 2022-05-02 05:57:00 Olena Gilbert [facility] ACTIVATED PARTIAL 2022-05-02 05:57:00 Ofelia [facility] PHOSPHORUS 2022-05-02 05:57:00 Ofelia [facility] MAGNESIUM 2022-05-02 05:57:00 Ofelia [facility] TROPONIN I 2022-05-02 05:57:00 Ofelia [facility] BASIC METABOLIC PANEL 2022-05-02 05:57:00 Ofelia [facility] (NA, K, CL, CO2, GLUCOSE, Medica l Branch BUN, CREATININE, CA) LIPID PANEL ([id number])(TOTAL 2022-05-02 05:57:00 Olena Gilbert [facility] CHOLESTEROL, [facility] TRIGLYCERIDES, HDL) PROTHROMBIN TIME / INR 2022-05-02 05:57:00 Olena Gilbert [facility] ACTIVATED PARTIAL 2022-05-02 05:57:00 Ofelia [facility] MICROALBUMIN URINE 2022-05-02 05:21:00 Chris Zapata [facility] URINALYSIS 2022-05-02 05:21:00 Rj Rosenthal [facility] PROTEIN CREAT RATIO URINE 2022-05-02 05:21:00 Chris Zapata Un iversity of [facility] EXTRA TUBE URINE CULTURE 2022-05-02 05:21:00 Hillary Antoine [facility] URINALYSIS 2022-05-02 05:21:00 Rj Rosenthal [facility] MICROALBUMIN URINE 2022-05-02 05:21:[address] [facility] PROTEIN CREAT RATIO URINE 2022-05-02 05:21:00 Chris Zapata Un iversity [facility] EXTRA TUBE URINE CULTURE 2022-05-02 05:21:00 Hillary Antoine [facility] MICROALBUMIN URINE 2022-05-02 05:21:[address] [facility] URINALYSIS 2022-05-02 05:21:00 Rj Rosenthal [facility] PROTEIN CREAT RATIO URINE 2022-05-02 05:21:00 Chris Zapata Un iversity [facility] EXTRA TUBE URINE CULTURE 2022-05-02 05:21:00 Hillary Antoine [facility] POCT GLUCOSE (AUTOMATED) 2022-05-02 05:10:00 [facility] POCT GLUCOSE (AUTOMATED) 2022-05-02 05:10:00 Rj Rosenthal iversity [facility] POCT GLUCOSE (AUTOMATED) 2022-05-02 05:10:00 [facility] AC PANEL 20 + LACTIC ACID 2022-05-02 03:19:00 Olena Gilbert iversity [facility] AC PANEL 20 + LACTIC ACID 2022-05-02 03:19:00 [facility] AC PANEL 20 + LACTIC ACID 2022-05-02 03:19:00 Olena Gilbert iverstiara [facility] FERRITIN SERUM 2022-05-01 18:35:00 Olena Gilbert o f [facility] TROPONIN I 2022-05-01 18:35:00 Rj Rosenthal [facility] COMP. METABOLIC PANEL 2022-05-01 18:35:00 Rj Rosenthal [facility] ([id number]) [facility] IRON PANEL 2022-05-01 18:35:00 Ofelia [facility] CBC WITH DIFF 2022-05-01 18:35:00 Rj Rosenthal [facility] GLYCOSYLATED HEMOGLOBIN 2022-05-01 18:35:00 Ofelai [facility] ([address] N-TERMINAL PRO-BNP 2022-05-01 18:35:00 Rj Rosenthal [facility] COMP. METABOLIC PANEL 2022-05-01 18:35:00 [facility] ([id number]) [facility] TROPONIN I 2022-05-01 18:35:00 Rj Rosenthal [facility] N-TERMINAL PRO-BNP 2022-05-01 18:35:00 Rj Rosenthal [facility] CBC WITH DIFF 2022-05-01 18:35:00 Rj Rosenthal [facility] GLYCOSYLATED HEMOGLOBIN 2022-05-01 18:35:00 Ofelia [facility] ([address] FERRITIN SERUM 2022-05-01 18:35:00 Ofelia [facility] IRON PANEL 2022-05-01 18:35:00 Ofelia [facility] FERRITIN SERUM 2022-05-01 18:35:00 Ofelia [facility] TROPONIN I 2022-05-01 18:35:00 Rj Rosenthal [facility] COMP. METABOLIC PANEL 2022-05-01 18:35:00 [facility] ([id number]) [facility] IRON PANEL 2022-05-01 18:35:00 Ofelia [facility] CBC WITH DIFF 2022-05-01 18:35:00 Rj Rosenthal [facility] GLYCOSYLATED HEMOGLOBIN 2022-05-01 18:35:00 Ofelia [facility] N-TERMINAL PRO-BNP 2022-05-01 18:35:00 Rj Rosenthal [facility] LACTIC ACID WHOLE BLOOD 2022-05-01 18:34:00 Rj Rosenthal Uni versity [facility] LACTIC ACID WHOLE BLOOD 2022-05-01 18:34:00 Rj Rosenthal Uni vers[facility] LACTIC ACID WHOLE BLOOD 2022-05-01 18:34:00 Rj Rosenthal Uni versity [facility] XR CHEST 1 2022-05-01 18:17:19 Rj Rosenthal [facility] XR CHEST 1 2022-05-01 18:17:19 Rj Rosenthal [facility] XR CHEST 1 2022-05-01 18:17:19 Rj Rosenthal [facility] HB ECG ROUTINE & RHYTHM 2022-05-01 18:09:00 Rj Rosenthal Uni vers[facility] of [facility] HB ECG ROUTINE & RHYTHM 2022-05-01 18:09:00 Rj Rosenthal [facility] HB ECG ROUTINE & RHYTHM 2022-05-01 18:09:00 Rj Rosenthal [facility] CONSENT/REFUSAL FOR 2022-05-01 17:24:37 Doctor Unassigned, No [facility] [place] DIAGNOSIS AND TREATMENT [facility] CONSENT/REFUSAL FOR 2022-05-01 17:24:37 Doctor Unassigned, No [facility] [place] DIAGNOSIS AND TREATMENT [facility] CONSENT/REFUSAL FOR 2022-05-01 17:24:37 Doctor Unassigned, No [facility] [place] DIAGNOSIS AND TREATMENT [facility] HOSPITAL ADMISSION 2022-05-01 06:01:00 Doctor Unassigned, No Uni [facility] HOSPITAL ADMISSION 2022-05-01 06:01:00 Doctor Unassigned, No Uni [facility] of [facility] HOSPITAL ADMISSION 2022-05-01 06:01:00 Doctor Unassigned, No Uni [facility] REFERRAL- 2021-11-21 05:01:00 Doctor Unassigned, No [facility] [place] REQUEST/RESPONSE Name [facility] PROTEIN URINE, URINALYSIS 2021-05-18 18:05:00 LishaGaviota lovelacejose ramon [facility] URIC ACID 2021-05-18 18:01:00 Lisha, [facility] MAGNESIUM 2021-05-18 18:01:00 Lisha, [facility] RENAL PANEL 2021-05-18 18:01:00 Lisha, [facility] CBC WITH DIFF 2021-05-18 18:01:00 Lisha, [facility] URINALYSIS 2021-05-18 18:01:00 Lisha, [facility] ASSIGNMENT OF BENEFITS 2021-05-18 17:26:33 Doctor Unassigned, [facility] POCT GLUCOSE (AUTOMATED) 2021-05-04 13:30:00 Aby Lennon [facility] BASIC METABOLIC PANEL 2021-05-04 11:17:00 Jeovany Palomo [facility] (NA, K, CL, CO2, GLUCOSE, Medica l Branch BUN, CREATININE, CA) POCT GLUCOSE (AUTOMATED) 2021-05-04 06:20:00 Aby Lennon [facility] POCT GLUCOSE (AUTOMATED) 2021-05-04 01:16:00 Aby Lennon [facility] POCT GLUCOSE (AUTOMATED) 2021-05-03 22:14:00 Aby Lennon [facility] POCT GLUCOSE (AUTOMATED) 2021-05-03 17:48:00 Aby Lennon [facility] POCT GLUCOSE (AUTOMATED) 2021-05-03 13:42:00 Aby Lennon [facility] BASIC METABOLIC PANEL 2021-05-03 11:13:00 Jeovany Palomo [facility] (NA, K, CL, CO2, GLUCOSE, Medica l Branch BUN, CREATININE, CA) CBC WITH DIFF 2021-05-03 11:13:00 Stacia Jeovany [facility] N-TERMINAL PRO-BNP 2021-05-03 11:13:[address] [facility] POCT GLUCOSE (AUTOMATED) 2021-05-03 10:57:00 Aby Lennon [facility] POCT GLUCOSE (AUTOMATED) 2021-05-03 06:20:00 Aby Lennon [facility] POCT GLUCOSE (AUTOMATED) 2021-05-03 02:31:00 Aby Lennon [facility] POCT GLUCOSE (AUTOMATED) 2021-05-02 22:43:00 Aby Lennon [facility] POCT GLUCOSE (AUTOMATED) 2021-05-02 17:53:00 Aby Lennon [facility] XR CHEST 1 VW 2021-05-02 16:59:05 Adam Neri [facility] POCT GLUCOSE (AUTOMATED) 2021-05-02 13:36:00 Aby Lennon [facility] PHOSPHORUS 2021-05-02 10:23:00 Lisha [facility] MAGNESIUM 2021-05-02 10:23:00 Lisha [facility] FERRITIN SERUM 2021-05-02 10:23:00 Lisha [facility] IRON 2021-05-02 10:23:00 Lisha [facility] TOTAL IRON BINDING 2021-05-02 10:23:[address] [facility] CAPACITY [facility] TROPONIN I 2021-05-02 10:23:00 Stacia [facility] THYROID STIMULATING 2021-05-02 10:23:00 Lisha [facility] HORM[facility] COMP. METABOLIC PANEL 2021-05-02 10:23:00 Jeovany Palomo [facility] ([id number]) [facility] CBC WITH DIFF 2021-05-02 10:23:00 Stacia [facility] N-TERMINAL PRO-BNP 2021-05-02 10:23:[address] [facility] POCT GLUCOSE (AUTOMATED) 2021-05-02 08:06:00 Aby Lennon [facility] POCT GLUCOSE (AUTOMATED) 2021-05-02 02:38:00 Aby Lennon [facility] POCT GLUCOSE (AUTOMATED) 2021-05-01 22:14:00 Aby Lennon [facility] INTACT PTH CALCIUM GROUP 2021-05-01 20:00:00 Lisha, [facility] VITAMIN D, 25-OH 2021-05-01 20:00:00 Lisha, [facility] URINALYSIS 2021-05-01 19:11:00 Lisha, [facility] POTASSIUM, URINE RANDOM 2021-05-01 19:11:00 Lisha, [facility] SODIUM, URINE RANDOM 2021-05-01 19:11:00 Lisha, [facility] PROTEIN CREAT RATIO URINE 2021-05-01 19:11:[address] [facility] US RETROPERITONEAL 2021-05-01 17:53:56 Lisha, [facility] COMPLETE [facility] POCT GLUCOSE (AUTOMATED) 2021-05-01 17:06:00 Aby Lennon [facility] ACUTE CARE ARTERIAL BLOOD 2021-05-01 16:46:00 LishaYara lovelace [facility] GAS [facility] POCT GLUCOSE (AUTOMATED) 2021-05-01 13:37:00 Aby Lennon [facility] PHOSPHORUS 2021-05-01 11:58:00 Lisha, [facility] CREATINE KINASE 2021-05-01 11:58:00 Lisha, [facility] LIPASE 2021-05-01 11:58:00 Aby Lennon [facility] MAGNESIUM 2021-05-01 11:58:00 Aby Lennon [facility] TROPONIN I 2021-05-01 11:58:00 Julianna Maza [facility] HEPATIC FUNCTION PANEL 2021-05-01 11:58:00 Aby Lennon [facility] ([id number]) (ALB,T.PRO,BILI Medical Branch T,BU/BC,ALT,AST,ALK PHOS) BASIC METABOLIC PANEL 2021-05-01 11:58:00 Aby Lennon [facility] (NA, K, CL, CO2, GLUCOSE, Medica l Branch BUN, CREATININE, CA) CBC WITH DIFF 2021-05-01 11:58:00 Aby Lennon [facility] N-TERMINAL PRO-BNP 2021-05-01 11:58:00 Julianna Maza [facility] POCT GLUCOSE (AUTOMATED) 2021-05-01 02:41:00 Aby Lennon [facility] US ABDOMEN LIMITED 2021-04-30 23:43:[address] [facility] POCT GLUCOSE (AUTOMATED) 2021-04-30 23:07:00 Aby Lennon [facility] GLYCOSYLATED HEMOGLOBIN 2021-04-30 22:02:00 Aby Lennon [facility] (A1C) [facility] TROPONIN I 2021-04-30 21:50:00 Aby Lennon [facility] TRANSTHORACIC ECHO (TTE) 2021-04-30 20:37:00 Aby Lennon [facility] COMPLETE W/ CONTRAST Medical [facility] ABORH CONFIRMATION (LAB 2021-04-30 13:30:00 Remy Denson [facility] ONLY) Medical Branch COMP. METABOLIC PANEL 2021-04-30 13:12:00 Remy Denson [facility] ([id number]) [facility] LIPID PANEL ([id number])(TOTAL 2021-04-30 13:12:00 Aby Lennon [facility] CHOLESTEROL, [facility] TRIGLYCERIDES, HDL) CRITICAL CARE 2021-04-30 12:46:07 Remy Denson [facility] XR CHEST 1 VW 2021-04-30 12:19:00 Remy Denson [facility] HB ECG ROUTINE & RHYTHM 2021-04-30 12:07:45 Remy Denson [facility] HB ABO GROUPING 2021-04-30 12:06:00 Jarett Remy [facility] LACTIC ACID WHOLE BLOOD 2021-04-30 12:05:00 Jarett Remy [facility] BLOOD CULTURE SCREEN 2021-04-30 12:02:00 Remy Denson [facility] LIPASE 2021-04-30 12:01:00 Remy Denson [facility] TROPONIN I 2021-04-30 12:01:00 Remy Denson [facility] CBC WITH DIFF 2021-04-30 12:01:00 Remy Denson [facility] PROTHROMBIN TIME / INR 2021-04-30 12:01:00 Remy Denson [facility] [facility] PARTIAL 2021-04-30 12:01:00 Remy Denson [facility] THRMPLAS RUSSELL [facility] N-TERMINAL PRO-BNP 2021-04-30 12:01:[address] [facility] COVID-19 (ID NOW RAPID 2021-04-30 12:01:00 Remy Denson [facility] TESTING) Medical Branch LAB ONLY COVID 2021-04-30 12:01:00 Remy Denson [facility] CONSENT/REFUSAL FOR 2021-04-30 11:26:07 Doctor Unassigned, No [facility] Name [facility] NOTICE OF PRIVACY 2021-04-30 11:25:36 Doctor Unassigned, No Univ [facility] PRACTICES [facility] Encounters Start End Encounter Admission Attending Care Care Encounter Source Date/Time Date/Time Type Type Clinicians Facility Department ID 2022-12-30 2022-12-30 Outpatient [facility] Quinn 09:34:44 09:34:44 [id number] [facility] 2022-12-28 2022-12-28 Orders Doctor MONICA Dalton2.840.114 [id number] Univers 00:00:00 00:00:00 Only Unassigned, DANIELE 350.1.13.10 ity of [place] [facility] 4.2.7.2.686 [place] [phone] [place] [address] Branch 2022-12-09 2022-12-09 Outpatient [facility]FA [facility] Quinn 08:24:28 08:24:28 [id number] [facility] 2022-12-07 2022-12-07 Outpatient SFA [facility] Quinn 08:15:14 08:15:14 [id number] F Alexandre 2022-12-02 2022-12-02 Orders Doctor MONICA Dalton2.840.114 [id number] Univers 00:00:00 00:00:00 Only Unassigned, DANIELE 350.1.13.10 ity of [place] [facility] 4.2.7.2.686 [place] [phone] [address] 2022-11-30 2022-11-30 Outpatient [facility] [id number] Univers 00:00:00 00:00:00 ity of [facility] 2022-11-01 2022-11-01 Outpatient [facility] Quinn 09:01:34 09:01:34 [id number] F [place] 2022-09-28 2022-09-28 Orders Doctor MONICA 1.2.840.114 [id number] Univers 00:00:00 00:00:00 Only Unassigned, DANIELE 350.1.13.10 ity of [place] [facility] 4.2.7.2.686 [place] [phone] [address] 2022-09-06 2022-09-06 Outpatient [facility] Quinn 08:26:25 08:26:25 [id number] [place] 2022-09-03 2022-09-03 Outpatient [facility] Quinn 10:40:57 10:40:57 [id number] [place] 2022-09-01 2022-09-01 Outpatient [facility] Quinn 13:04:32 13:04:32 [id number] [place] 2022-07-22 2022-07-22 Outpatient [facility] [id number] Univers 00:00:00 00:00:00 ity of [facility] 2022-06-22 2022-06-22 [facility]phone [facility] 1.2.840.11 [id number] Univers 00:00:00 00:00:00 [place], [facility] 350.1.13.10 ity of [facility] [phone] [address] 2022-06-10 2022-06-10 Outpatient [facility] [id number] Univers 00:00:00 00:00:00 ity of [facility] 2022-06-10 2022-06-10 Orders Doctor ANDERSON 1.2.840.114 [id number] Univers 00:00:00 00:00:00 Only Unassigned, DANIELE 350.1.13.10 ity of [place] [facility] 4.2.7.2.686 [place] [phone] [facility] [address] 2022-06-08 2022-06-08 Outpatient R [facility] [id number] Univers 08:30:00 23:59:00 PRESTON, ity [facility] 2022-06-08 2022-06-08 Orders Doctor MONICA 1.2.840.114 [id number] Univers 00:00:00 00:00:00 Only Unassigned, DANIELE 350.1.13.10 ity of [place] [facility] 4.2.7.2.686 [place] [phone] [facility] [address] 2022-05-27 2022-05-27 Transition POOL Valerio 1.2.840.114 [id number] Univers 00:00:00 00:00:00 of Care Annabel PRICE 350.1.13.10 it y of [place] [phone] [facility] 403 Branch 2022-05-01 2022-05-26 Inpatient X [facility] [id number] Univers 11:37:00 20:43:00 PRESTON, aquiles [facility] 2022-05-01 2022-05-26 Hospital Rj Rosenthal 1.2.840. 114 [id number] Univers 11:37:00 20:43:00 Encounter Hillary AntoineY 350.1.13.10 ity of Nelly Schultz [facility] 4.2.7.2.686 [facility] 980. [id number] Medical 094 Branch 2022-05-17 2022-05-17 Surgery JUAN PABLO Teran 1.2.840.114 [id number] Univers 15:45:00 16:45:00 Nellyken DANIELE 350.1.13.10 ity of [facility] 4.2.7.2.686 [place] [phone] [facility] 840 Branch 2022-05-01 2022-05-01 Travel 1.2.840.1 1.2.768.073 [id number] Univers 00:00:00 00:00:00 [id number] 350.1.13.10 ity of 3.104.2.7 4.[place].3.698 [place] .3.768861 084.8 Medica l .8 [place] 2022-04-22 2022-04-22 Outpatient [facility] Quinn 09:03:47 09:03:47 [place] 2022-03-31 2022-03-31 Outpatient [facility] Quinn 10:40:59 10:40:59 F [place] 2022-02-16 2022-02-16 Outpatient [facility] Quinn 10:51:36 10:51:36 F [place] 2022-02-08 2022-02-08 Outpatient [facility] Quinn 10:08:40 10:08:40 F [place] 2022-01-12 2022-01-12 Letter MONICA Solorzano 1.2.840.114 [id number] Univers 00:00:00 00:00:00 (Out) Sonia SANABRIA 350.1.13.10 i ty of [facility] 4.2.7.2.686 [place] [phone] [facility] [address] 2022-01-06 2022-01-06 Outpatient R CANDY [facility] [id number] Univers 15:00:00 15:00:00 CHAPIS menjivar o f [facility] 2021-11-21 2021-11-21 Orders Doctor ANDERSON 1.2.840.114 [id number] Univers 00:00:00 00:00:00 Only Unassigned, DANIELE 350.1.13.10 ity of [place] [facility] 4.2.7.2.686 [place] [phone] [facility] 009 Branch 2021-05-27 2021-05-27 Eitan Maza [facility] 1.2.775.390 [id number] Univers 00:00:00 00:00:00 Julianna ROJAS 350.1.13.10 it[place] [phone] Nd dical NAL 059 [facility] 2021-05-18 2021-05-18 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2.686 [place] [phone] [facility] 00[address] [place] 2021-04-30 2021-05-04 Hospital Remy Denson [facility] 1.2.840.1 [id number] Univers 05:33:00 12:29:00 Encounter Aby Lennon 350.1.13.10 ity [facility] [place].2.[place] [phone] [facility] 080 Branch 2021-04-30 2021-05-04 Inpatient X SAJI [facility] GERTRUDIS [id number] Univers 05:33:00 12:29:00 ABY menjivar [facility] Results Test Description Test Time Test Comments Results Result Comments Source LIPID PANEL 2022-09-02 23:37:05 Test Item Value Reference Range Interpretation Comme nts CHOLESTEROL (test code = 2210) 212 MG/DL <200 H TRIGLYCERIDES (test code = 2232) 113 MG/DL <150 HDL CHOLESTEROL (test code = 63 MG/DL >39 2220) CALC LDL CHOL (test code = 2237) 127 MG/DL <100 H NOTE: CALCULATED LDL IS BASED ON PHILIPPE-MENCHACA METHOD WHICHINCLUDES A DJUSTABLE TRIGLYCERIDE:VL DL CHOLESTEROL RATIO.THIS FACT OR VARIES BY MEASURED TRIGLY CERIDE AND NON-HDLCHOLESTE ROL CONCENTRATIONS WITH INCREASED CALCULATED LDL SEENIN HIGHER T RIGLYCERIDE OR LOWER NON-HDL S PECIMENS. FOR MOREINFORMATION , SEE CLIENT ANNOUNCEMENT AT [email or web address] [email or web address] RATIO LDL/HDL (test code = 2.02 RATIO <3.22 2237) COMPREHENSIVE METABOLIC [id number] 23:37:05 Test Item Value Reference Range Interpretation Comments GLUCOSE (test code = 222 MG/DL 70-99 H 2216) BUN (test code = 18 MG/DL 8-23 2207) CREATININE (test 2.37 MG/DL 0.60-1.30 H code = 2214) eGFR (2020 CKD-EPI) 22 >60 L (test code = 02421) ML/MIN/1.73 CALC BUN/CREAT (test 8 RATIO 6-28 code = 2235) SODIUM (test code = 142 MEQ/L 753-313 4702) POTASSIUM (test code 4.6 MEQ/L 3.5-5.4 = 2227) CHLORIDE (test code 95 MEQ/L 95-107 = 2214) CARBON DIOXIDE (test 26 MEQ/L 19-31 code = 2206) CALCIUM (test code = 9.3 MG/DL 8.5-10.5 2208) PROTEIN, TOTAL (test 7.2 G/DL 6.1-8.3 code = 2229) ALBUMIN (test code = 4.3 G/DL 3.5-5.2 2200) CALC GLOBULIN (test 2.9 G/DL 1.9-3.7 code = 2240) CALC A/G RATIO (test 1.5 RATIO 1.0-2.6 code = 2234) BILIRUBIN, TOTAL 0.3 MG/DL See_Comment [Automated message] (test code = 2207) The [employer] which generated this result transmitted ref erence range: <=1.2. T he reference range was not used to int erpret this result as normal/abnormal . ALKALINE PHOSPHATASE 171 U/L 40-140 H (test code = 220) AST (test code = 17 U/L 9-40 2217) ALT (test code = 13 U/L 5-40 UNLESS OTH ERWISE 2218) INDICATED, ALL TESTING PERFORM ED AT [facility] [address] [place] [address] [place] PAT DIRECTOR: Magalis GREENBERG IVETH NUMBER [id number] [facility] ACCREDITATION N O. [id number] HEMOGLOBIN [id number] 10:29:23 Test Item Value Reference Range Interpretation Comments HEMOGLOBIN A1c (test 7.6 % 4.2-5.6 H AMERIC AN DIABETES code = 98251) ASSOCIATION IDELINES FOR HGB A1C: PREDIABETES/INC REASED [...] Interpretation Comments POCT GLU (test code = 8289613001) 103 mg/dL 70-110 Lab Interpretation (test code = Normal 59632-8) [facility] GLUCOSE (AUTOMATED)2022-05-26 22:41:50 Test Item Value Reference Range Interpretation Comments POCT GLU (test code = 3885700840) 150 mg/dL 70-110 H Lab Interpretation (test code = Abnormal 26147-6) [facility] GLUCOSE (AUTOMATED)2022-05-26 18:54:59 Test Item Value Reference Range Interpretation Comments POCT GLU (test code = 5920946252) 216 mg/dL 70-110 H Lab Interpretation (test code = Abnormal 74131-3) [facility] GLUCOSE (AUTOMATED)2022-05-26 15:29:20 Test Item Value Reference Range Interpretation Comments POCT GLU (test code = 5121006781) 159 mg/dL 70-110 H Lab Interpretation (test code = Abnormal 46851-0) [facility] GLUCOSE (AUTOMATED)2022-05-26 03:10:28 Test Item Value Reference Range Interpretation Comments POCT GLU (test code = 3285354373) 253 mg/dL 70-110 H Lab Interpretation (test code = Abnormal 20834-9) [facility] GLUCOSE (AUTOMATED)2022-05-25 23:19:38 Test Item Value Reference Range Interpretation Comments POCT GLU (test code = 3589020185) 139 mg/dL 70-110 H Lab Interpretation (test code = Abnormal 26495-8) [facility] GLUCOSE (AUTOMATED)2022-05-25 18:08:19 Test Item Value Reference Range Interpretation Comments POCT GLU (test code = 3302847296) 277 mg/dL 70-110 H Lab Interpretation (test code = Abnormal 68122-3) [facility] GLUCOSE (AUTOMATED)2022-05-25 15:20:51 Test Item Value Reference Range Interpretation Comments POCT GLU (test code = 9839192591) 220 mg/dL 70-110 H Lab Interpretation (test code = Abnormal 17188-3) [facility] GLUCOSE (AUTOMATED)2022-05-25 03:14:53 Test Item Value Reference Range Interpretation Comments POCT GLU (test code = 3787266801) 207 mg/dL 70-110 H Lab Interpretation (test code = Abnormal 19988-5) [facility] GLUCOSE (AUTOMATED)2022-05-25 01:42:22 Test Item Value Reference Range Interpretation Comments POCT GLU (test code = 3213367553) 129 mg/dL 70-110 H Lab Interpretation (test code = Abnormal 73225-5) [facility] GLUCOSE (AUTOMATED)2022-05-24 18:07:09 Test Item Value Reference Range Interpretation Comments POCT GLU (test code = 8565321952) 265 mg/dL 70-110 H Lab Interpretation (test code = Abnormal 42201-7) [facility] GLUCOSE (AUTOMATED)2022-05-24 15:25:45 Test Item Value Reference Range Interpretation Comments POCT GLU (test code = 4654792225) 142 mg/dL 70-110 H Lab Interpretation (test code = Abnormal 73803-9) [facility] GLUCOSE (AUTOMATED)2022-05-24 03:04:09 Test Item Value Reference Range Interpretation Comments POCT GLU (test code = 6981981808) 155 mg/dL 70-110 H Lab Interpretation (test code = Abnormal 46666-2) [facility] GLUCOSE (AUTOMATED)2022-05-23 23:36:58 Test Item Value Reference Range Interpretation Comments POCT GLU (test code = 4539052253) 229 mg/dL 70-110 H Lab Interpretation (test code = Abnormal 82681-5) [facility] GLUCOSE (AUTOMATED)2022-05-23 18:12:53 Test Item Value Reference Range Interpretation Comments POCT GLU (test code = 4021367534) 241 mg/dL 70-110 H Lab Interpretation (test code = Abnormal 81654-0) [facility] GLUCOSE (AUTOMATED)2022-05-23 15:13:34 Test Item Value Reference Range Interpretation Comments POCT GLU (test code = 6539785729) 151 mg/dL 70-110 H Lab Interpretation (test code = Abnormal 01263-5) [facility] GLUCOSE (AUTOMATED)2022-05-23 02:41:42 Test Item Value Reference Range Interpretation Comments POCT GLU (test code = 6502674602) 237 mg/dL 70-110 H Lab Interpretation (test code = Abnormal 12337-2) [facility] GLUCOSE (AUTOMATED)2022-05-22 23:22:37 Test Item Value Reference Range Interpretation Comments POCT GLU (test code = 4050521754) 235 mg/dL 70-110 H Lab Interpretation (test code = Abnormal 17291-9) [facility] GLUCOSE (AUTOMATED)2022-05-22 20:36:06 Test Item Value Reference Range Interpretation Comments POCT GLU (test code = 5923328235) 247 mg/dL 70-110 H Lab Interpretation (test code = Abnormal 32154-5) [facility] GLUCOSE (AUTOMATED)2022-05-22 18:32:31 Test Item Value Reference Range Interpretation Comments POCT GLU (test code = 8253652398) 263 mg/dL 70-110 H Lab Interpretation (test code = Abnormal 17035-4) [facility] GLUCOSE (AUTOMATED)2022-05-22 15:09:08 Test Item Value Reference Range Interpretation Comments POCT GLU (test code = 8906964630) 145 mg/dL 70-110 H Lab Interpretation (test code = Abnormal 76527-4) [facility] GLUCOSE (AUTOMATED)2022-05-22 03:05:05 Test Item Value Reference Range Interpretation Comments POCT GLU (test code = 7499697433) 269 mg/dL 70-110 H Lab Interpretation (test code = Abnormal 47853-8) [facility] GLUCOSE (AUTOMATED)2022-05-21 23:27:43 Test Item Value Reference Range Interpretation Comments POCT GLU (test code = 3214413968) 187 mg/dL 70-110 H Lab Interpretation (test code = Abnormal 95523-4) [facility] GLUCOSE (AUTOMATED)2022-05-21 15:03:24 Test Item Value Reference Range Interpretation Comments POCT GLU (test code = 6814998564) 175 mg/dL 70-110 H Lab Interpretation (test code = Abnormal 18417-2) [facility] GLUCOSE (AUTOMATED)2022-05-21 03:48:30 Test Item Value Reference Range Interpretation Comments POCT GLU (test code = 8953112502) 250 mg/dL 70-110 H Lab Interpretation (test code = Abnormal 98645-0) [facility] GLUCOSE (AUTOMATED)2022-05-20 23:10:10 Test Item Value Reference Range Interpretation Comments POCT GLU (test code = 8447858910) 133 mg/dL 70-110 H Lab Interpretation (test code = Abnormal 83964-3) [facility] GLUCOSE (AUTOMATED)2022-05-20 19:22:35 Test Item Value Reference Range Interpretation Comments POCT GLU (test code = 3754144706) 257 mg/dL 70-110 H Lab Interpretation (test code = Abnormal 68481-9) [facility] GLUCOSE (AUTOMATED)2022-05-20 13:52:51 Test Item Value Reference Range Interpretation Comments POCT GLU (test code = 7309726041) 120 mg/dL 70-110 H Lab Interpretation (test code = Abnormal 40538-0) [facility] GLUCOSE (AUTOMATED)2022-05-20 07:58:34 Test Item Value Reference Range Interpretation Comments POCT GLU (test code = 5946908193) 154 mg/dL 70-110 H Lab Interpretation (test code = Abnormal 19460-8) [facility] GLUCOSE (AUTOMATED)2022-05-20 04:46:18 Test Item Value Reference Range Interpretation Comments POCT GLU (test code = 2771684739) 301 mg/dL 70-110 H Lab Interpretation (test code = Abnormal 00353-8) [facility] GLUCOSE (AUTOMATED)2022-05-20 00:32:10 Test Item Value Reference Range Interpretation Comments POCT GLU (test code = 7321633552) 156 mg/dL 70-110 H Lab Interpretation (test code = Abnormal 96096-2) [facility] GLUCOSE (AUTOMATED)2022-05-19 18:05:00 Test Item Value Reference Range Interpretation Comments POCT GLU (test code = 5716913018) 211 mg/dL 70-110 H Lab Interpretation (test code = Abnormal 77199-9) [facility] GLUCOSE (AUTOMATED)2022-05-19 14:45:03 Test Item Value Reference Range Interpretation Comments POCT GLU (test code = 0943280587) 180 mg/dL 70-110 H Lab Interpretation (test code = Abnormal 67817-6) [facility] GLUCOSE (AUTOMATED)2022-05-19 03:38:25 Test Item Value Reference Range Interpretation Comments POCT GLU (test code = 1207375443) 246 mg/dL 70-110 H Lab Interpretation (test code = Abnormal 50892-0) [facility] GLUCOSE (AUTOMATED)2022-05-18 22:27:08 Test Item Value Reference Range Interpretation Comments POCT GLU (test code = 4878391491) 226 mg/dL 70-110 H Lab Interpretation (test code = Abnormal 14086-5) [facility] GLUCOSE (AUTOMATED)2022-05-18 18:04:57 Test Item Value Reference Range Interpretation Comments POCT GLU (test code = 3616434707) 272 mg/dL 70-110 H Lab Interpretation (test code = Abnormal 24122-7) [facility] GLUCOSE (AUTOMATED)2022-05-18 18:04:57 Test Item Value Reference Range Interpretation Comments POCT GLU (test code = 2889560716) 272 mg/dL 70-110 H Lab Interpretation (test code = Abnormal 63250-3) [facility] GLUCOSE (AUTOMATED)2022-05-18 14:52:13 Test Item Value Reference Range Interpretation Comments POCT GLU (test code = 0639664855) 215 mg/dL 70-110 H Lab Interpretation (test code = Abnormal 11981-8) [facility] GLUCOSE (AUTOMATED)2022-05-18 14:52:13 Test Item Value Reference Range Interpretation Comments POCT GLU (test code = 3248667081) 215 mg/dL 70-110 H Lab Interpretation (test code = Abnormal 89218-0) [facility] GLUCOSE (AUTOMATED)2022-05-18 03:54:19 Test Item Value Reference Range Interpretation Comments POCT GLU (test code = 0416995466) 262 mg/dL 70-110 H Lab Interpretation (test code = Abnormal 32718-2) [facility] GLUCOSE (AUTOMATED)2022-05-18 03:54:19 Test Item Value Reference Range Interpretation Comments POCT GLU (test code = 6303972736) 262 mg/dL 70-110 H Lab Interpretation (test code = Abnormal 86326-8) [facility] GLUCOSE (AUTOMATED)2022-05-17 23:10:52 Test Item Value Reference Range Interpretation Comments POCT GLU (test code = 8027440378) 153 mg/dL 70-110 H Lab Interpretation (test code = Abnormal 58695-8) [facility] GLUCOSE (AUTOMATED)2022-05-17 23:10:52 Test Item Value Reference Range Interpretation Comments POCT GLU (test code = 4439295008) 153 mg/dL 70-110 H Lab Interpretation (test code = Abnormal 08034-5) [facility] GLUCOSE (AUTOMATED)2022-05-17 18:17:46 Test Item Value Reference Range Interpretation Comments POCT GLU (test code = 6570979080) 109 mg/dL 70-110 Lab Interpretation (test code = Normal 19465-5) [facility] GLUCOSE (AUTOMATED)2022-05-17 18:17:46 Test Item Value Reference Range Interpretation Comments POCT GLU (test code = 1839861809) 109 mg/dL 70-110 Lab Interpretation (test code = Normal 85545-4) [facility] GLUCOSE (AUTOMATED)2022-05-17 15:03:31 Test Item Value Reference Range Interpretation Comments POCT GLU (test code = 3432894798) 120 mg/dL 70-110 H Lab Interpretation (test code = Abnormal 52831-7) [facility] GLUCOSE (AUTOMATED)2022-05-17 15:03:31 Test Item Value Reference Range Interpretation Comments POCT GLU (test code = 0237957484) 120 mg/dL 70-110 H Lab Interpretation (test code = Abnormal 84114-0) [facility] GLUCOSE (AUTOMATED)2022-05-17 02:16:18 Test Item Value Reference Range Interpretation Comments POCT GLU (test code = 3560279729) 247 mg/dL 70-110 H Lab Interpretation (test code = Abnormal 53029-8) [facility] GLUCOSE (AUTOMATED)2022-05-17 02:16:18 Test Item Value Reference Range Interpretation Comments POCT GLU (test code = 6539161894) 247 mg/dL 70-110 H Lab Interpretation (test code = Abnormal 51761-8) [facility] GLUCOSE (AUTOMATED)2022-05-16 23:47:19 Test Item Value Reference Range Interpretation Comments POCT GLU (test code = 4324166916) 255 mg/dL 70-110 H Lab Interpretation (test code = Abnormal 30404-8) [facility] GLUCOSE (AUTOMATED)2022-05-16 23:47:19 Test Item Value Reference Range Interpretation Comments POCT GLU (test code = 5671032837) 255 mg/dL 70-110 H Lab Interpretation (test code = Abnormal 85332-3) [facility] GLUCOSE (AUTOMATED)2022-05-16 18:51:57 Test Item Value Reference Range Interpretation Comments POCT GLU (test code = 7129362775) 222 mg/dL 70-110 H Lab Interpretation (test code = Abnormal 78750-3) [facility] GLUCOSE (AUTOMATED)2022-05-16 18:51:57 Test Item Value Reference Range Interpretation Comments POCT GLU (test code = 4773089809) 222 mg/dL 70-110 H Lab Interpretation (test code = Abnormal 21579-2) [facility] GLUCOSE (AUTOMATED)2022-05-16 15:03:18 Test Item Value Reference Range Interpretation Comments POCT GLU (test code = 9165762141) 182 mg/dL 70-110 H Lab Interpretation (test code = Abnormal 80576-7) [facility] GLUCOSE (AUTOMATED)2022-05-16 15:03:18 Test Item Value Reference Range Interpretation Comments POCT GLU (test code = 6027261468) 182 mg/dL 70-110 H Lab Interpretation (test code = Abnormal 18904-7) [facility] 15:03:18 Test Item Value Reference Range Interpretation Comments POCT GLU (test code = 3372509050) 182 mg/dL 70-110 H Lab Interpretation (test code = Abnormal 49086-7) [facility] 13:59:21 Test Item Value Reference Range Interpretation Comments PHOSPHORUS (test code = 0687350240) 3.1 mg/dL 2.5-5.0 Lab Interpretation (test code = Normal 94365-1) [facility] 13:59:21 Test Item Value Reference Range Interpretation Comments MAGNESIUM (test code = 1665196002) 2.1 mg/dL 1.7-2.4 Lab Interpretation (test code = Normal 55229-1) [facility] METABOLIC PANEL (NA, K, CL, CO2, GLUCOSE, BUN, CREATININE, CA)2022-05-16 13:59:21 Test Item Value Reference Range Interpretation Comments NA (test code = 126 mmol/L 135-145 L 8108097266) K (test code = 4.1 mmol/L 3.5-5.0 2329652927) CL (test code = 94 mmol/L 98-108 L 3295039393) CO2 TOTAL (test code = 24 mmol/L 23-31 1308422448) AGAP (test code = 8 2-16 4697328276) BUN (test code = 27 mg/dL 7-23 H 1861670333) GLUCOSE (test code = 234 mg/dL 70-110 H 0371036118) CREATININE (test code = 3.68 mg/dL 0.50-1.04 H 6369235475) CALCIUM (test code = 8.4 mg/dL 8.6-10.6 L 4256833541) eGFR (test code = 12.5 mL/min/1.73m2 1526755117) INDIRA (test code = INDIRA) Association of [...] tests). Lab Interpretation Abnormal (test code = 11473-3) [facility] 13:59:21 Test Item Value Reference Range Interpretation Comments PHOSPHORUS (test code = 5765194478) 3.1 mg/dL 2.5-5.0 Lab Interpretation (test code = Normal 55503-0) [facility] 13:59:21 Test Item Value Reference Range Interpretation Comments MAGNESIUM (test code = 9463555602) 2.1 mg/dL 1.7-2.4 Lab Interpretation (test code = Normal 43718-7) [facility] (NA, K, CL, CO2, GLUCOSE, BUN, CREATININE, CA)2022-05-16 13:59:21 Test Item Value Reference Range Interpretation Comments NA (test code = 126 mmol/L 135-145 L 2091845598) K (test code = 4.1 mmol/L 3.5-5.0 7360263252) CL (test code = 94 mmol/L 98-108 L 1331629546) CO2 TOTAL (test code = 24 mmol/L 23-31 8430932303) AGAP (test code = 2-16 9170446838) BUN (test code = 27 mg/dL 7-23 H 1117556735) GLUCOSE (test code = 234 mg/dL 70-110 H 7077098280) CREATININE (test code = 3.68 mg/dL 0.50-1.04 H 3160497963) CALCIUM (test code = 8.4 mg/dL 8.6-10.6 L 7865691489) eGFR (test code = mL/min/1.73m2 8785999469) INDIRA (test code = INDIRA) Association of [...] tests). Lab Interpretation Abnormal (test code = 03277-6) [facility]:21 Test Item Value Reference Range Interpretation Comments PHOSPHORUS (test code = 5614887366) 3.1 mg/dL 2.5-5.0 Lab Interpretation (test code = Normal 51857-5) [facility] 13:59:21 Test Item Value Reference Range Interpretation Comments MAGNESIUM (test code = 7709426517) 2.1 mg/dL 1.7-2.4 Lab Interpretation (test code = Normal 15619-9) [facility] (NA, K, CL, CO2, GLUCOSE, BUN, CREATININE, CA)2022-05-16 13:59:21 Test Item Value Reference Range Interpretation Comments NA (test code = 126 mmol/L 135-145 L 6476756167) K (test code = 4.1 mmol/L 3.5-5.0 2556956586) CL (test code = 94 mmol/L 98-108 L 6373947813) CO2 TOTAL (test code = 24 mmol/L 23-31 5173683134) AGAP (test code = 2-16 3533881843) BUN (test code = 27 mg/dL 7-23 H 4237310661) GLUCOSE (test code = 234 mg/dL 70-110 H 7353084724) CREATININE (test code = 3.68 mg/dL 0.50-1.04 H 7493549992) CALCIUM (test code = 8.4 mg/dL 8.6-10.6 L 2677047655) eGFR (test code = mL/min/1.73m2 7824571765) INDIRA (test code = INDIRA) Association of [...] tests). Lab Interpretation Abnormal (test code = 07604-1) [facility] GLUCOSE (AUTOMATED)2022-05-16 03:04:46 Test Item Value Reference Range Interpretation Comments POCT GLU (test code = 4550545178) 215 mg/dL 70-110 H Lab Interpretation (test code = Abnormal 44068-0) [facility] GLUCOSE (AUTOMATED)2022-05-16 03:04:46 Test Item Value Reference Range Interpretation Comments POCT GLU (test code = 4824443540) 215 mg/dL 70-110 H Lab Interpretation (test code = Abnormal 07411-2) [facility] GLUCOSE (AUTOMATED)2022-05-15 23:14:46 Test Item Value Reference Range Interpretation Comments POCT GLU (test code = 8301162744) 203 mg/dL 70-110 H Lab Interpretation (test code = Abnormal 13487-6) [facility] GLUCOSE (AUTOMATED)2022-05-15 23:14:46 Test Item Value Reference Range Interpretation Comments POCT GLU (test code = 5669638641) 203 mg/dL 70-110 H Lab Interpretation (test code = Abnormal 25794-2) [facility] GLUCOSE (AUTOMATED)2022-05-15 18:59:52 Test Item Value Reference Range Interpretation Comments POCT GLU (test code = 3133594849) 282 mg/dL 70-110 H Lab Interpretation (test code = Abnormal 33228-1) [facility] GLUCOSE (AUTOMATED)2022-05-15 18:59:52 Test Item Value Reference Range Interpretation Comments POCT GLU (test code = 9319839246) 282 mg/dL 70-110 H Lab Interpretation (test code = Abnormal 15488-0) [facility] GLUCOSE (AUTOMATED)2022-05-15 14:45:41 Test Item Value Reference Range Interpretation Comments POCT GLU (test code = 4165825119) 175 mg/dL 70-110 H Lab Interpretation (test code = Abnormal 68418-7) [facility] GLUCOSE (AUTOMATED)2022-05-15 14:45:41 Test Item Value Reference Range Interpretation Comments POCT GLU (test code = 0259557445) 175 mg/dL 70-110 H Lab Interpretation (test code = Abnormal 81961-8) [facility] GLUCOSE (AUTOMATED)2022-05-15 02:09:45 Test Item Value Reference Range Interpretation Comments POCT GLU (test code = 0893992266) 209 mg/dL 70-110 H Lab Interpretation (test code = Abnormal 74781-3) [facility] GLUCOSE (AUTOMATED)2022-05-15 02:09:45 Test Item Value Reference Range Interpretation Comments POCT GLU (test code = 1829123518) 209 mg/dL 70-110 H Lab Interpretation (test code = Abnormal 94033-2) [facility] GLUCOSE (AUTOMATED)2022-05-14 22:22:10 Test Item Value Reference Range Interpretation Comments POCT GLU (test code = 3086572301) 118 mg/dL 70-110 H Lab Interpretation (test code = Abnormal 30612-8) [facility] GLUCOSE (AUTOMATED)2022-05-14 22:22:10 Test Item Value Reference Range Interpretation Comments POCT GLU (test code = 1038847303) 118 mg/dL 70-110 H Lab Interpretation (test code = Abnormal 93794-8) [facility] / [id number] 19:05:22 Test Item Value Reference Range Interpretation Comments PROTIME PATIENT (test 11.9 See_Comment [Auto mated message] code = 5964-2) The system [employer] generated this result transmitted ref erence range: 10.1 - 1 2.6 Seconds. The re ference range was not u sed to interpret this result as normal/abnor mal. INR (test code = 6301-6) 1.1 Nor mal INR <1.1; Warfarin Therap eutic range 2.0 to 3. 0 or 2.5 to 3.5, dep ending upon the indica tions. Lab Interpretation (test Normal code = 88632-3) [facility] / [id number] 19:05:22 Test Item Value Reference Range Interpretation Comments PROTIME PATIENT (test See_Comment [Auto mated message] code = 5964-2) The system [employer] generated this result transmitted ref erence range: 10.1 - 1 2.6 Seconds. The re ference range was not u sed to interpret this result as normal/abnor mal. INR (test code = 6301-6) Nor mal INR <1.1; Warfarin Therap eutic range 2.0 to 3. 0 or 2.5 to 3.5, dep ending upon the indica tions. Lab Interpretation (test Normal code = 35360-7) [facility] / [id number] 19:05:22 Test Item Value Reference Range Interpretation Comments PROTIME PATIENT (test See_Comment [Auto mated message] code = 5964-2) The system [employer] generated this result transmitted ref erence range: 10.1 - 1 2.6 Seconds. The re ference range was not u sed to interpret this result as normal/abnor mal. INR (test code = 6301-6) Nor mal INR <1.1; Warfarin Therap eutic range 2.0 to 3. 0 or 2.5 to 3.5, dep ending upon the indica tions. Lab Interpretation (test Normal code = 22190-2) [facility] GLUCOSE (AUTOMATED)2022-05-14 18:03:48 Test Item Value Reference Range Interpretation Comments POCT GLU (test code = 8838295267) 102 mg/dL 70-110 Lab Interpretation (test code = Normal 55513-4) [facility] GLUCOSE (AUTOMATED)2022-05-14 18:03:48 Test Item Value Reference Range Interpretation Comments POCT GLU (test code = 7587381239) 102 mg/dL 70-110 Lab Interpretation (test code = Normal 02624-1) [facility] GLUCOSE (AUTOMATED)2022-05-14 15:41:33 Test Item Value Reference Range Interpretation Comments POCT GLU (test code = 9082639952) 139 mg/dL 70-110 H Lab Interpretation (test code = Abnormal 87645-2) [facility] GLUCOSE (AUTOMATED)2022-05-14 15:41:33 Test Item Value Reference Range Interpretation Comments POCT GLU (test code = 1188793344) 139 mg/dL 70-110 H Lab Interpretation (test code = Abnormal 52180-7) [facility] WITH [id number] 13:05:08 Test Item Value Reference Range Interpretation Comments WBC (test code = 6.69 See_Comment [Automated 6690-2) message] The sy stem which generated this result transmitted reference range : 4.30 - 11.10 10*3/?L. The reference range was not used to interpret this result as normal/abnormal . RBC (test code = 3.64 See_Comment L [Automated 789-8) message] The sy [...] (test code = 55.5 fL 39.0-49.9 H 61465-5) RDW-CV (test code = 16.2 % 12.0-15.5 H 788-0) PLT (test code = 195 See_Comment [Automated 777-3) message] The sy stem which generated this result transmitted reference range : 166 - 358 10*3/ ?L. The reference r lucille was not used to interpret this result as normal/abnormal . MPV (test code = 11.5 fL 9.5-12.9 71156-0) IPF % (test code = 3.8 % 1.3-7.7 Platelet count 1390068197) measured by fluorescence method. NRBC/100 WBC (test 0.0 See_Comment [Automat ed code = 4342611824) message] The system which generated this result transmitted reference range : 0.0 - 10.0 /100 WBCs. The refer ence range was not u sed to interpret th is result as normal/abnormal . NRBC x10^3 (test code See_Comment [Auto mated = 6225732445) message] The s ystem which generated this result transmitted reference range : 10*3/?L. The reference range was not used to interpret this result as normal/abnormal . GRAN MAT (NEUT) % 59.0 % (test code = 770-8) IMM GRAN % (test code 0.30 % = 5914967170) LYMPH % (test code = 22.6 % 736-9) MONO % (test code = 12.1 % 5905-5) EOS % (test code = 5.4 % 713-8) BASO % (test code = 0.6 % 706-2) GRAN MAT x10^3(ANC) 3.95 10*3/uL 1.88-7.09 (test code = 5312029262) IMM GRAN x10^3 (test 0.00-0.06 code = 0630650316) LYMPH x10^3 (test 1.51 10*3/uL 1.32-3.29 code = 731-0) MONO x10^3 (test code 0.81 10*3/uL 0.33-0.92 = 742-7) EOS x10^3 (test code 0.36 10*3/uL 0.03-0.39 = 711-2) BASO x10^3 (test code 0.04 10*3/uL 0.01-0.07 = 704-7) BASO STIPPLING (test Present A code = 703-9) JOANNE CELLS (test code 2+ See_Comment A [Auto mated = 7090-9) message] The sy stem which generated this result transmitted reference range : (none). The reference range was not used to interpret this result as normal/abnormal . SCHISTOCYTES (test 1+ A code = 800-3) SIDEROTIC GRAN (test Suggestive of A code = 7795-8) Lab Interpretation Abnormal (test code = 55596-3) [facility] WITH [id number] 13:05:08 Test Item Value Reference Range Interpretation Comments WBC (test code = See_Comment [Automated 3690-2) message] The sy stem which generated this [...] (test code = 55.5 fL 39.0-49.9 H 90229-6) RDW-CV (test code = 16.2 % 12.0-15.5 H 788-0) PLT (test code = See_Comment [Automated 777-3) message] The sy stem which generated this result transmitted reference range : 166 - 358 10*3/ ?L. The reference r lucille was not used to interpret this result as normal/abnormal . MPV (test code = 11.5 fL 9.5-12.9 74845-3) IPF % (test code = 3.8 % 1.3-7.7 Platelet count 5875442134) measured by fluorescence method. NRBC/100 WBC (test See_Comment [Automat ed code = 8598166204) message] The system which generated this result transmitted reference range : 0.0 - 10.0 /100 WBCs. The refer ence range was not u sed to interpret th is result as normal/abnormal . NRBC x10^3 (test code See_Comment [Auto mated = 7582483429) message] The s ystem which generated this result transmitted reference range : 10*3/?L. The reference range was not used to interpret this result as normal/abnormal . GRAN MAT (NEUT) % 59.0 % (test code = 770-8) IMM GRAN % (test code 0.30 % = 1156909906) LYMPH % (test code = 22.6 % 736-9) MONO % (test code = 12.1 % 5905-5) EOS % (test code = 5.4 % 713-8) BASO % (test code = 0.6 % 706-2) GRAN MAT x10^3(ANC) 3.95 10*3/uL 1.88-7.09 (test code = 9024789022) IMM GRAN x10^3 (test 0.00-0.06 code = 1654605193) LYMPH x10^3 (test 1.51 10*3/uL 1.32-3.29 code = 731-0) MONO x10^3 (test code 0.81 10*3/uL 0.33-0.92 = 742-7) EOS x10^3 (test code 0.36 10*3/uL 0.03-0.39 = 711-2) BASO x10^3 (test code 0.04 10*3/uL 0.01-0.07 = 704-7) BASO STIPPLING (test Present A code = 703-9) JOANNE CELLS (test code 2+ See_Comment A [Auto mated = 9590-9) message] The sy stem which generated this result transmitted reference range : (none). The reference range was not used to interpret this result as normal/abnormal . SCHISTOCYTES (test 1+ A code = 800-3) SIDEROTIC GRAN (test Suggestive of A code = 7795-8) Lab Interpretation Abnormal (test code = 45862-4) [facility] WITH [id number] 13:05:08 Test Item Value Reference Range Interpretation Comments WBC (test code = See_Comment [Automated 3290-2) message] The sy stem which generated this result transmitted reference range : 4.30 - 11.10 10*3/?L. The reference range was not used to interpret this result as normal/abnormal . RBC (test code = See_Comment L [Automated 849-8) message] The sy stem which generated this [...] (test code = 55.5 fL 39.0-49.9 H 19918-7) RDW-CV (test code = 16.2 % 12.0-15.5 H 788-0) PLT (test code = See_Comment [Automated 777-3) message] The sy stem which generated this result transmitted reference range : 166 - 358 10*3/ ?L. The reference r lucille was not used to interpret this result as normal/abnormal . MPV (test code = 11.5 fL 9.5-12.9 54591-8) IPF % (test code = 3.8 % 1.3-7.7 Platelet count 5696867586) measured by fluorescence method. NRBC/100 WBC (test See_Comment [Automat ed code = 0484588982) message] The system which generated this result transmitted reference range : 0.0 - 10.0 /100 WBCs. The refer ence range was not u sed to interpret th is result as normal/abnormal . NRBC x10^3 (test code See_Comment [Auto mated = 1346399960) message] The s ystem which generated this result transmitted reference range : 10*3/?L. The reference range was not used to interpret this result as normal/abnormal . GRAN MAT (NEUT) % 59.0 % (test code = 770-8) IMM GRAN % (test code 0.30 % = 4599185736) LYMPH % (test code = 22.6 % 736-9) MONO % (test code = 12.1 % 5905-5) EOS % (test code = 5.4 % 713-8) BASO % (test code = 0.6 % 706-2) GRAN MAT x10^3(ANC) 3.95 10*3/uL 1.88-7.09 (test code = 2965138881) IMM GRAN x10^3 (test 0.00-0.06 code = 7115513807) LYMPH x10^3 (test 1.51 10*3/uL 1.32-3.29 code [...] 7795-8) Lab Interpretation Abnormal (test code = 79652-9) [facility] 12:[facility]:02 Test Item Value Reference Range Interpretation Comments PHOSPHORUS (test code = 8164879303) 3.3 mg/dL 2.5-5.0 Lab Interpretation (test code = Normal 38415-2) [facility] 12:42:02 Test Item Value Reference Range Interpretation Comments MAGNESIUM (test code = 5291707691) 2.3 mg/dL 1.7-2.4 Lab Interpretation (test code = Normal 56745-2) [facility] (NA, K, CL, CO2, GLUCOSE, BUN, CREATININE, CA)2022-05-14 12:42:02 Test Item Value Reference Range Interpretation Comments NA (test code = 128 mmol/L 135-145 L 2205230808) K (test code = 5.1 mmol/L 3.5-5.0 H Slight 1739878704) hemolysis CL (test code = 97 mmol/L 98-108 L 6395975367) CO2 TOTAL (test code 26 mmol/L 23-31 = 0900305921) AGAP (test code = 5 2-16 3042367486) BUN (test code = 28 mg/dL 7-23 H Slight 7477293423) hemolysis GLUCOSE (test code = 166 mg/dL 70-110 H 6279936487) CREATININE (test code 3.51 mg/dL 0.50-1.04 H = 6780479880) CALCIUM (test code = 8.5 mg/dL 8.6-10.6 L 9863422328) eGFR (test code = 13.2 mL/min/1.73m2 3418270918) INDIRA (test code = INDIRA) Association of [...] tests). Lab Interpretation Abnormal (test code = 01024-8) [facility] 12:42:02 Test Item Value Reference Range Interpretation Comments PHOSPHORUS (test code = 2625752302) 3.3 mg/dL 2.5-5.0 Lab Interpretation (test code = Normal 22468-1) [facility] 12:42:02 Test Item Value Reference Range Interpretation Comments MAGNESIUM (test code = 9645741837) 2.3 mg/dL 1.7-2.4 Lab Interpretation (test code = Normal 93651-0) [facility] (NA, K, CL, CO2, GLUCOSE, BUN, CREATININE, CA)2022-05-14 12:42:02 Test Item Value Reference Range Interpretation Comments NA (test code = 128 mmol/L 135-145 L 0802731141) K (test code = 5.1 mmol/L 3.5-5.0 H Slight 3956354704) hemolysis CL (test code = 97 mmol/L 98-108 L 6907834825) CO2 TOTAL (test code 26 mmol/L 23-31 = 2181955407) AGAP (test code = 2-16 7722644282) BUN (test code = 28 mg/dL 7-23 H Slight 4248123190) hemolysis GLUCOSE (test code = 166 mg/dL 70-110 H 0079423316) CREATININE (test code 3.51 mg/dL 0.50-1.04 H = 1822819021) CALCIUM (test code = 8.5 mg/dL 8.6-10.6 L 2268768450) eGFR (test code = mL/min/1.73m2 6940387156) INDIRA (test code = INDIRA) Association of [...] tests). Lab Interpretation Abnormal (test code = 83175-2) [facility] GLUCOSE (AUTOMATED)2022-05-14 03:20:19 Test Item Value Reference Range Interpretation Comments POCT GLU (test code = 0338079398) 259 mg/dL 70-110 H Lab Interpretation (test code = Abnormal 16777-8) [facility] GLUCOSE (AUTOMATED)2022-05-14 03:20:19 Test Item Value Reference Range Interpretation Comments POCT GLU (test code = 5467868971) 259 mg/dL 70-110 H Lab Interpretation (test code = Abnormal 74237-3) [facility] GLUCOSE (AUTOMATED)2022-05-13 23:25:03 Test Item Value Reference Range Interpretation Comments POCT GLU (test code = 6863082004) 226 mg/dL 70-110 H Lab Interpretation (test code = Abnormal 90918-9) [facility] GLUCOSE (AUTOMATED)2022-05-13 23:25:03 Test Item Value Reference Range Interpretation Comments POCT GLU (test code = 8989591037) 226 mg/dL 70-110 H Lab Interpretation (test code = Abnormal 38555-4) [facility] GLUCOSE (AUTOMATED)2022-05-13 18:37:54 Test Item Value Reference Range Interpretation Comments POCT GLU (test code = 6608865028) 204 mg/dL 70-110 H Lab Interpretation (test code = Abnormal 12722-5) [facility] GLUCOSE (AUTOMATED)2022-05-13 18:37:54 Test Item Value Reference Range Interpretation Comments POCT GLU (test code = 5871275473) 204 mg/dL 70-110 H Lab Interpretation (test code = Abnormal 66517-2) [facility] GLUCOSE (AUTOMATED)2022-05-13 15:19:05 Test Item Value Reference Range Interpretation Comments POCT GLU (test code = 9239634202) 193 mg/dL 70-110 H Lab Interpret[facility] (test code = [facility]normal 56505-3[facility] 15:19:05 Test Item Value Reference Range Interpretation Comments POCT GLU (test code = 7608527286) 193 mg/dL 70-110 H Lab Interpretation (test code = Abnormal 75767-9) [facility] GLUCOSE (AUTOMATED)2022-05-13 06:45:36 Test Item Value Reference Range Interpretation Comments POCT GLU (test code = 4202153537) 161 mg/dL 70-110 H Lab Interpretation (test code = Abnormal 30125-7) [facility] GLUCOSE (AUTOMATED)2022-05-13 06:45:36 Test Item Value Reference Range Interpretation Comments POCT GLU (test code = 6852124678) 161 mg/dL 70-110 H Lab Interpretation (test code = Abnormal 75711-4) [facility] GLUCOSE (AUTOMATED)2022-05-13 03:00:00 Test Item Value Reference Range Interpretation Comments POCT GLU (test code = 8916793858) 311 mg/dL 70-110 H Lab Interpretation (test code = Abnormal 51716-3) [facility] GLUCOSE (AUTOMATED)2022-05-13 03:00:00 Test Item Value Reference Range Interpretation Comments POCT GLU (test code = 4047387068) 311 mg/dL 70-110 H Lab Interpretation (test code = Abnormal 97043-6) [facility] GLUCOSE (AUTOMATED)2022-05-13 00:46:16 Test Item Value Reference Range Interpretation Comments POCT GLU (test code = 3032665305) 135 mg/dL 70-110 H Lab Interpretation (test code = Abnormal 09006-1) [facility]22-[facility]-13 00:46:16 Test Item Value Reference Range Interpretation Comments POCT GLU (test code = 2064874437) 135 mg/dL 70-110 H Lab Interpretation (test code = Abnormal 83509-7) [facility] GLUCOSE (AUTOMATED)2022-05-12 17:42:03 Test Item Value Reference Range Interpretation Comments POCT GLU (test code = 4040508148) 204 mg/dL 70-110 H Lab Interpretation (test code = Abnormal 25504-9) [facility]12 17:42:03 Test Item Value Reference Range Interpretation Comments POCT GLU (test code = 4027963500) 204 mg/dL 70-110 H Lab Interpretation (test code = Abnormal 58928-6) [facility]2022-[facility]-12 15:39:26 Test Item Value Reference Range Interpretation Comments POCT GLU (test code = 9364779913) 180 mg/dL 70-110 H Lab Interpretation (test code = Abnormal 22836-4) [facility] GLUCOSE (AUTOMATED)2022-05-12 15:39:26 Test Item Value Reference Range Interpretation Comments POCT GLU (test code = 7978011573) 180 mg/dL 70-110 H Lab Interpretation (test code = Abnormal 40991-5) [facility] GLUCOSE (AUTOMATED)2022-05-12 02:50:51 Test Item Value Reference Range Interpretation Comments POCT GLU (test code = 8373104611) 214 mg/dL 70-110 H Lab Interpretation (test code = Abnormal 92324-9) [facility] GLUCOSE (AUTOMATED)2022-05-12 02:50:51 Test Item Value Reference Range Interpretation Comments POCT GLU (test code = 5710894391) 214 mg/dL 70-110 H Lab Interpretation (test code = Abnormal 01270-0) [facility] 23:41:52 Test Item Value Reference Range Interpretation Comments POCT GLU (test code = 0166447519) 317 mg/dL 70-110 H Lab Interpretation (test code = Abnormal 68311-8) [facility]-11 23:41:52 Test Item Value Reference Range Interpretation Comments POCT GLU (test code = 9314895934) 317 mg/dL 70-110 H Lab Interpretation (test code = Abnormal 88264-5) [facility] GLUCOSE (AUTOMATED)2022-05-11 17:39:02 Test Item Value Reference Range Interpretation Comments POCT GLU (test code = 8968188119) 286 mg/dL 70-110 H Lab Interpretation (test code = Abnormal 21164-8) [facility] GLUCOSE (AUTOMATED)2022-05-11 17:39:02 Test Item Value Reference Range Interpretation Comments POCT GLU (test code = 9281364296) 286 mg/dL 70-110 H Lab Interpretation (test code = Abnormal 76190-9) [facility] GLUCOSE (AUTOMATED)2022-05-11 14:02:36 Test Item Value Reference Range Interpretation Comments POCT GLU (test code = 5914088154) 191 mg/dL 70-110 H Lab Interpretation (test code = Abnormal 02474-5) [facility] GLUCOSE (AUTOMATED)2022-05-11 14:02:36 Test Item Value Reference Range Interpretation Comments POCT GLU (test code = 3514783603) 191 mg/dL 70-110 H Lab Interpretation (test code = Abnormal 01198-5) [facility] GLUCOSE (AUTOMATED)2022-05-11 01:51:30 Test Item Value Reference Range Interpretation Comments POCT GLU (test code = 8660158703) 133 mg/dL 70-110 H Lab Interpretation (test code = Abnormal 38135-7) [facility] GLUCOSE (AUTOMATED)2022-05-11 01:51:30 Test Item Value Reference Range Interpretation Comments POCT GLU (test code = 9644289322) 133 mg/dL 70-110 H Lab Interpretation (test code = Abnormal 08186-9) [facility] GLUCOSE (AUTOMATED)2022-05-10 23:37:15 Test Item Value Reference Range Interpretation Comments POCT GLU (test code = 9304406216) 124 mg/dL 70-110 H Lab Interpretation (test code = Abnormal 04029-0) [facility] GLUCOSE (AUTOMATED)2022-05-10 23:37:15 Test Item Value Reference Range Interpretation Comments POCT GLU (test code = 1949350211) 124 mg/dL 70-110 H Lab Interpretation (test code = Abnormal 30570-6) [facility] 2022-05-10 18:10:39 Test Item Value Reference Range Interpretation Comments Height (test code = in 5550874850) Weight (test code = lbs 9823830903) Systolic BP (test code mmHg = 0502163632) Diastolic BP (test code mmHg = 9614769022) Heart Rate (test code = bpm 5778407998) BSA (test code = 1.98 m2 1295350972) Base ST Depresion (mm) 0 mm (test code = 6125657729) LVIDD (test code = 6.50 cm 9584919854) Left Ventricular End 214.3 mL Diastolic Volume by Teichholz Method (test code = 6501496) IVS (test code = 0.88 cm 3959429082) Interventricular Septum 0.88 cm Diastolic Thickness by 2D (test code = 1826927) LVPWD (test code = 1.02 cm 7665286117) PW (test code = 1.02 cm 0.6-1.8 7109839052) LAV(MOD-sp4) (test code 116.20 mL = 1465407490) LA Volume Index (BP) 62.2 mL/m2 (test code = 0043448600) LA volume (BP) (test 123.4 mL code = 5186703873) LAV(MOD-sp2) (test code 124.50 mL = 8256977215) MV Peak A Jayme (test 73.5 cm/s code = 2228850912) MV Peak E Jayme (test 132.8 cm/s code = 9178268742) E/A ratio (test code = ratio 6995950316) Radiology Study observation (narrative) (test code = 26572-9) INDIRA (test code = INDIRA) Table formatting [...] mid inferolateral.Other segments could not be evaluated. [facility] 18:10:39 Test Item Value Reference Range Interpretation Comments Height (test code = in 5417567130) Weight (test code = lbs 1091294995) Systolic BP (test code mmHg = 7925899012) Diastolic BP (test code mmHg = 8715574782) Heart Rate (test code = bpm 8269794712) BSA (test code = 1.98 m2 2874441359) Base ST Depresion (mm) 0 mm (test code = 4427116435) LVIDD (test code = 6.50 cm 9802608536) Left Ventricular End 214.3 mL Diastolic Volume by Teichholz Method (test code = 8748948) IVS (test code = 0.88 cm 3570915568) Interventricular Septum 0.88 cm Diastolic Thickness by 2D (test code = 3793345) LVPWD (test code = 1.02 cm 2162610814) PW (test code = 1.02 cm 0.6-1.2 1026059920) LAV(MOD-sp4) (test code 116.20 mL = 6778062125) LA Volume Index (BP) 62.2 mL/m2 (test code = 8147292730) LA volume (BP) (test 123.4 mL code = 3716786097) LAV(MOD-sp2) (test code 124.50 mL = 7873318459) MV Peak A Jayme (test 73.5 cm/s code = 1347267102) MV Peak E Jayme (test 132.8 cm/s code = 7855726876) E/A ratio (test code = ratio 6778146749) Radiology Study observation (narrative) (test code = 00462-6) INDIRA (test code = INDIRA) Table formatting [...] mid inferolateral.Other segments could not be evaluated. [facility] GLUCOSE (AUTOMATED)2022-05-10 17:56:56 Test Item Value Reference Range Interpretation Comments POCT GLU (test code = 9060716094) 155 mg/dL 70-110 H Lab Interpretation (test code = Abnormal 52901-2) [facility] GLUCOSE (AUTOMATED)2022-05-10 17:56:56 Test Item Value Reference Range Interpretation Comments POCT GLU (test code = 5900861743) 155 mg/dL 70-110 H Lab Interpretation (test code = Abnormal 73934-4) [facility] GLUCOSE (AUTOMATED)2022-05-10 14:18:39 Test Item Value Reference Range Interpretation Comments POCT GLU (test code = 7591549603) 138 mg/dL 70-110 H Lab Interpretation (test code = Abnormal 22414-1) [facility] GLUCOSE (AUTOMATED)2022-05-10 14:18:39 Test Item Value Reference Range Interpretation Comments POCT GLU (test code = 5770877372) 138 mg/dL 70-110 H Lab Interpretation (test code = Abnormal 61901-5) [facility] GLUCOSE (AUTOMATED)2022-05-10 02:08:53 Test Item Value Reference Range Interpretation Comments POCT GLU (test code = 7120285495) 149 mg/dL 70-110 H Lab Interpretation (test code = Abnormal 16029-9) [facility] GLUCOSE (AUTOMATED)2022-05-10 02:08:53 Test Item Value Reference Range Interpretation Comments POCT GLU (test code = 7898275958) 149 mg/dL 70-110 H Lab Interpretation (test code = Abnormal 89219-5) [facility] GLUCOSE (AUTOMATED)2022-05-09 22:36:48 Test Item Value Reference Range Interpretation Comments POCT GLU (test code = 0643806336) 215 mg/dL 70-110 H Lab Interpretation (test code = Abnormal 28830-7) [facility] GLUCOSE (AUTOMATED)2022-05-09 22:36:48 Test Item Value Reference Range Interpretation Comments POCT GLU (test code = 4666946462) 215 mg/dL 70-110 H Lab Interpretation (test code = Abnormal 24453-5) [facility] GLUCOSE (AUTOMATED)2022-05-09 18:10:26 Test Item Value Reference Range Interpretation Comments POCT GLU (test code = 0946784913) 251 mg/dL 70-110 H Lab Interpretation (test code = Abnormal 94746-2) [facility] GLUCOSE (AUTOMATED)2022-05-09 18:10:26 Test Item Value Reference Range Interpretation Comments POCT GLU (test code = 3292749515) 251 mg/dL 70-110 H Lab Interpretation (test code = Abnormal 70194-6) [facility] GLUCOSE (AUTOMATED)2022-05-09 14:50:33 Test Item Value Reference Range Interpretation Comments POCT GLU (test code = 5812429504) 106 mg/dL 70-110 Lab Interpretation (test code = Normal 39853-3) [facility] GLUCOSE (AUTOMATED)2022-05-09 14:50:33 Test Item Value Reference Range Interpretation Comments POCT GLU (test code = 0543623735) 106 mg/dL 70-110 Lab Interpretation (test code = Normal 35621-8) [facility] GLUCOSE (AUTOMATED)2022-05-09 03:19:47 Test Item Value Reference Range Interpretation Comments POCT GLU (test code = 8808967893) 137 mg/dL 70-110 H Lab Interpretation (test code = Abnormal 28861-8) [facility] GLUCOSE (AUTOMATED)2022-05-09 03:19:47 Test Item Value Reference Range Interpretation Comments POCT GLU (test code = 1342086762) 137 mg/dL 70-110 H Lab Interpretation (test code = Abnormal 52567-3) [facility] GLUCOSE (AUTOMATED)2022-05-08 23:14:52 Test Item Value Reference Range Interpretation Comments POCT GLU (test code = 0520190446) 141 mg/dL 70-110 H Lab Interpretation (test code = Abnormal 62960-1) [facility] GLUCOSE (AUTOMATED)2022-05-08 23:14:52 Test Item Value Reference Range Interpretation Comments POCT GLU (test code = 0022583579) 141 mg/dL 70-110 H Lab Interpretation (test code = Abnormal 49595-7) [facility] 23:05:34 Test Item Value Reference Range Interpretation Comments HBsAB (test code = Negative 7806825178) HBsAb 0.00 mIU/mL Semi-Quantitative (test code = 5102394196) INDIRA (test code = Interpretation: INDIRA) ?Hepatitis B Surface Antibody ? Negative - Patient is considered to be not immune to infection with HBV. ? ? Positive - Anti-HBs detected at greater than or equal to 12 mIU/mL. ?Patient is considered to be immune to infection with HBV. ? [facility]2022-[facility]-08 23:05:34 Test Item Value Reference Range Interpretation Comments HBsAB (test code = Negative 4983645811) HBsAb mIU/mL Semi-Quantitative (test code = 3305764719) INDIRA (test code = Interpretation: INDIRA) ?Hepatitis B Surface Antibody ? Negative - Patient is considered to be not immune to infection with HBV. ? ? Positive - Anti-HBs detected at greater than or equal to 12 mIU/mL. ?Patient is considered to be immune to infection with HBV. ? [facility] GLUCOSE (AUTOMATED)2022-05-08 18:07:50 Test Item Value Reference Range Interpretation Comments POCT GLU (test code = 3579293480) 186 mg/dL 70-110 H Lab Interpretation (test code = Abnormal 62631-2) [facility] GLUCOSE (AUTOMATED)2022-05-08 18:07:50 Test Item Value Reference Range Interpretation Comments POCT GLU (test code = 6248124320) 186 mg/dL 70-110 H Lab Interpretation (test code = Abnormal 16727-5) [facility] GLUCOSE (AUTOMATED)2022-05-08 15:24:48 Test Item Value Reference Range Interpretation Comments POCT GLU (test code = 0185101569) 99 mg/dL 70-110 Lab Interpretation (test code = Normal 12853-8) [facility] GLUCOSE (AUTOMATED)2022-05-08 15:24:48 Test Item Value Reference Range Interpretation Comments POCT GLU (test code = 2082052370) 99 mg/dL 70-110 Lab Interpretation (test code = Normal 51283-1) [facility] GLUCOSE (AUTOMATED)2022-05-08 04:39:05 Test Item Value Reference Range Interpretation Comments POCT GLU (test code = 7358028207) 104 mg/dL 70-110 Lab Interpretation (test code = Normal 51113-6) [facility] GLUCOSE (AUTOMATED)2022-05-08 04:39:05 Test Item Value Reference Range Interpretation Comments POCT GLU (test code = 0734173717) 104 mg/dL 70-110 Lab Interpretation (test code = Normal 31127-7) [facility] GLUCOSE (AUTOMATED)2022-05-07 23:10:18 Test Item Value Reference Range Interpretation Comments POCT GLU (test code = 3957617989) 133 mg/dL 70-110 H Lab Interpretation (test code = Abnormal 05357-6) [facility] GLUCOSE (AUTOMATED)2022-05-07 23:10:18 Test Item Value Reference Range Interpretation Comments POCT GLU (test code = 0452080371) 133 mg/dL 70-110 H Lab Interpretation (test code = Abnormal 98508-9) [facility] GLUCOSE (AUTOMATED)2022-05-07 18:50:35 Test Item Value Reference Range Interpretation Comments POCT GLU (test code = 9690931523) 225 mg/dL 70-110 H Lab Interpretation (test code = Abnormal 99494-1) [facility] GLUCOSE (AUTOMATED)2022-05-07 18:50:35 Test Item Value Reference Range Interpretation Comments POCT GLU (test code = 2822442088) 225 mg/dL 70-110 H Lab Interpretation (test code = Abnormal 58151-4) [facility] GLUCOSE (AUTOMATED)2022-05-07 14:35:45 Test Item Value Reference Range Interpretation Comments POCT GLU (test code = 5071467431) 133 mg/dL 70-110 H Lab Interpretation (test code = Abnormal 46780-5) [facility] GLUCOSE (AUTOMATED)2022-05-07 14:35:45 Test Item Value Reference Range Interpretation Comments POCT GLU (test code = 8454860319) 133 mg/dL 70-110 H Lab Interpretation (test code = Abnormal 46949-8) [facility] GLUCOSE (AUTOMATED)2022-05-07 05:24:01 Test Item Value Reference Range Interpretation Comments POCT GLU (test code = 5979834326) 167 mg/dL 70-110 H Lab Interpretation (test code = Abnormal 04400-1) [facility] GLUCOSE (AUTOMATED)2022-05-07 05:24:01 Test Item Value Reference Range Interpretation Comments POCT GLU (test code = 4716916374) 167 mg/dL 70-110 H Lab Interpretation (test code = Abnormal 00691-9) [facility] GLUCOSE (AUTOMATED)2022-05-07 00:18:44 Test Item Value Reference Range Interpretation Comments POCT GLU (test code = 7306528122) 148 mg/dL 70-110 H Lab Interpretation (test code = Abnormal 12488-7) [facility] GLUCOSE (AUTOMATED)2022-05-07 00:18:44 Test Item Value Reference Range Interpretation Comments POCT GLU (test code = 4957423883) 148 mg/dL 70-110 H Lab Interpretation (test code = Abnormal 37007-2) [facility] GLUCOSE (AUTOMATED)2022-05-06 19:47:24 Test Item Value Reference Range Interpretation Comments POCT GLU (test code = 4434843598) 154 mg/dL 70-110 H Lab Interpretation (test code = Abnormal 80781-7) [facility] GLUCOSE (AUTOMATED)2022-05-06 19:47:24 Test Item Value Reference Range Interpretation Comments POCT GLU (test code = 1069006430) 154 mg/dL 70-110 H Lab Interpretation (test code = Abnormal 62008-9) [facility] GLUCOSE (AUTOMATED)2022-05-06 18:03:43 Test Item Value Reference Range Interpretation Comments POCT GLU (test code = 6739434483) 175 mg/dL 70-110 H Lab Interpretation (test code = Abnormal 32304-3) [facility] GLUCOSE (AUTOMATED)2022-05-06 18:03:43 Test Item Value Reference Range Interpretation Comments POCT GLU (test code = 7017095884) 175 mg/dL 70-110 H Lab Interpretation (test code = Abnormal 43302-7) [facility] GLUCOSE (AUTOMATED)2022-05-06 14:21:33 Test Item Value Reference Range Interpretation Comments POCT GLU (test code = 3193350780) 122 mg/dL 70-110 H Lab Interpretation (test code = Abnormal 78303-8) [facility] GLUCOSE (AUTOMATED)2022-05-06 14:21:33 Test Item Value Reference Range Interpretation Comments POCT GLU (test code = 9584705052) 122 mg/dL 70-110 H Lab Interpretation (test code = Abnormal 13105-8) [facility] GLUCOSE (AUTOMATED)2022-05-06 04:41:52 Test Item Value Reference Range Interpretation Comments POCT GLU (test code = 6050727731) 166 mg/dL 70-110 H Lab Interpretation (test code = Abnormal 62981-2) [facility] GLUCOSE (AUTOMATED)2022-05-06 04:41:52 Test Item Value Reference Range Interpretation Comments POCT GLU (test code = 9212056827) 166 mg/dL 70-110 H Lab Interpretation (test code = Abnormal 63493-7) [facility] GLUCOSE (AUTOMATED)2022-05-05 22:57:50 Test Item Value Reference Range Interpretation Comments POCT GLU (test code = 3374880055) 146 mg/dL 70-110 H Lab Interpretation (test code = Abnormal 77470-2) [facility] GLUCOSE (AUTOMATED)2022-05-05 22:57:50 Test Item Value Reference Range Interpretation Comments POCT GLU (test code = 6312780104) 146 mg/dL 70-110 H Lab Interpretation (test code = Abnormal 08113-5) [facility] GLUCOSE (AUTOMATED)2022-05-05 18:28:38 Test Item Value Reference Range Interpretation Comments POCT GLU (test code = 6763790298) 131 mg/dL 70-110 H Lab Interpretation (test code = Abnormal 81486-6) [facility] GLUCOSE (AUTOMATED)2022-05-05 18:28:38 Test Item Value Reference Range Interpretation Comments POCT GLU (test code = 8421338807) 131 mg/dL 70-110 H Lab Interpretation (test code = Abnormal 81562-8) [facility] GLUCOSE (AUTOMATED)2022-05-05 14:22:11 Test Item Value Reference Range Interpretation Comments POCT GLU (test code = 6984855173) 107 mg/dL 70-110 Lab Interpretation (test code = Normal 19389-3) [facility] GLUCOSE (AUTOMATED)2022-05-05 14:22:11 Test Item Value Reference Range Interpretation Comments POCT GLU (test code = 2905630314) 107 mg/dL 70-110 Lab Interpretation (test code = Normal 03888-6) [facility] GLUCOSE (AUTOMATED)2022-05-05 02:50:12 Test Item Value Reference Range Interpretation Comments POCT GLU (test code = 9642938626) 131 mg/dL 70-110 H Lab Interpretation (test code = Abnormal 06567-3) [facility] GLUCOSE (AUTOMATED)2022-05-05 02:50:12 Test Item Value Reference Range Interpretation Comments POCT GLU (test code = 9636061373) 131 mg/dL 70-110 H Lab Interpretation (test code = Abnormal 11250-9) [facility] GLUCOSE (AUTOMATED)2022-05-04 23:30:39 Test Item Value Reference Range Interpretation Comments POCT GLU (test code = 5402791540) 135 mg/dL 70-110 H Lab Interpretation (test code = Abnormal 49396-3) [facility] GLUCOSE (AUTOMATED)2022-05-04 23:30:39 Test Item Value Reference Range Interpretation Comments POCT GLU (test code = 2518798370) 135 mg/dL 70-110 H Lab Interpretation (test code = Abnormal 58632-7) [facility] GLUCOSE (AUTOMATED)2022-05-04 18:28:39 Test Item Value Reference Range Interpretation Comments POCT GLU (test code = 2891161024) 160 mg/dL 70-110 H Lab Interpretation (test code = Abnormal 31242-0) [facility] GLUCOSE (AUTOMATED)2022-05-04 18:28:39 Test Item Value Reference Range Interpretation Comments POCT GLU (test code = 3987773997) 160 mg/dL 70-110 H Lab Interpretation (test code = Abnormal 77727-2) [facility] GLUCOSE (AUTOMATED)2022-05-04 14:50:13 Test Item Value Reference Range Interpretation Comments POCT GLU (test code = 7622932489) 126 mg/dL 70-110 H Lab Interpretation (test code = Abnormal 43374-2) [facility] GLUCOSE (AUTOMATED)2022-05-04 14:50:13 Test Item Value Reference Range Interpretation Comments POCT GLU (test code = 9190274439) 126 mg/dL 70-110 H Lab Interpretation (test code = Abnormal 91221-5) [facility] GLUCOSE (AUTOMATED)2022-05-04 03:14:07 Test Item Value Reference Range Interpretation Comments POCT GLU (test code = 9327977665) 140 mg/dL 70-110 H Lab Interpretation (test code = Abnormal 79113-4) [facility] GLUCOSE (AUTOMATED)2022-05-04 03:14:07 Test Item Value Reference Range Interpretation Comments POCT GLU (test code = 9825897803) 140 mg/dL 70-110 H Lab Interpretation (test code = Abnormal 36277-1) [facility] 01:53:20 Test Item Value Reference Range Interpretation Comments Height (test code = in 8828075087) Weight (test code = lbs 3261078164) Systolic BP (test code mmHg = 7683256638) Diastolic BP (test code mmHg = 0310645508) Heart Rate (test code = bpm 5156302469) BSA (test code = 1.99 m2 4274008395) LVOT stroke volume 62.90 cm3 (test code = 5223498363) EF(Teich) (test code = 51.40 % 0094112091) LVIDD (test code = 6.00 cm 6185151406) LVIDS (test code = 4.40 cm 9819130110) Left Ventricular End 85.9 mL Systolic Volume by Teichholz Method (test code = 2063267) Left Ventricular End 176.7 mL Diastolic Volume by Teichholz Method (test code = 0562781) IVS (test code = 0.95 cm 0604251253) LVPWD (test code = 0.95 cm 0520775627) LVOT diameter (test 2.16 cm code = 3523300275) LVOT area (test code = 3.70 cm2 2199216445) FS (test code = 27 % 7985028493) MV Peak E Jayme (test 137.7 cm/s code = 6358994454) MV Peak A Jayme (test 89.4 cm/s code = 9950715587) E/A ratio (test code = ratio 0533173535) E wave decelartion time 0.16 s (test code = 8721862997) MV E/e' septal (test 4.6 cm/s code = 6907474901) LA Volume Index (BP) 48.7 mL/m2 (test code = 5871412784) LA volume (BP) (test 96.9 mL code = 6917715241) LVOT peak jayme (test 90.6 cm/s code = 9578346961) LVOT mn grad (test code mmHg = 0757226756) LA size (test code = 4.5 cm 0028351857) LAV(MOD-sp2) (test code 105.10 mL = 5037496752) LAV(MOD-sp4) (test code 80.90 mL = 4499486378) Tapse (test code = 1.82 cm 0184562369) Aortic valve mean 113.1 cm/s velocity (test code = 4447119969) Ao peak jayme (test code 186.0 cm/s = 5337354136) Ao VTI (test code = 32.9 cm 4795681644) AV LVOT peak gradient mmHg (test code = 9767255746) LVOT peak VTI (test 17.2 cm code = 7161277694) AV area by cont VTI 1.9 cm2 (test code = 3152073742) AV area peak jayme (test 1.8 cm2 code = 7098336417) LV V1 mean (test code = 56.60 cm/s 1291199543) Ao max PG (test code = 13.80 mm[Hg] 1944099538) MV Prop V (test code = 41.90 cm/s 0656346028) TR Peak Jayme (test code 352.5 cm/s = 8495127768) Triscuspid Valve mmHg Regurgitation Peak Gradient (test code = 3610592313) Ao root diam (test code 3.00 cm = 9476941622) AV peak gradient (test mmHg code = 9808862715) AV valve area (test 1.91 cm2 code = 3224392028) AV mean gradient (test mmHg code = 7499947139) Aortic root (test code 3.0 cm = 0023185951) Ao root annulus (test 3.0 cm code = 8325859918) PW (test code = 0.95 cm 0.6-1.1 5803356628) EF - 2D (test code = 51.40 % 53911979) Interventricular Septum 0.95 cm Diastolic Thickness by 2D (test code = 1559435) A4C EF (test code = 23.50 % 4636719722) EF(sp4-el) (test code = 25.00 % 8409072431) SV(MOD-sp4) (test code 49.40 mL = 8301252741) SV(sp4-el) (test code = 55.60 mL 5698837785) LV Diastolic Volume 208.5 mL (BP) (test code = 3586088838) A2C EF (test code = 25.80 % 8791260244) EF(MOD-bp) (test code = 23.90 % 0795695214) EF(sp2-el) (test code = 24.20 % 1234796796) LV Systolic Volume (BP) 158.6 mL (test code = 5417834289) SV(MOD-bp) (test code = 49.90 mL 7212940549) SV(MOD-sp2) (test code 52.70 mL = 6310579494) EF (test code = 3153254094) Left Ventricular Stroke 49.9 mL Volume by 2-D Biplane-MOD (test code = 6217259) LV Diastolic Volume 104.8 mL/m2 Index (BP) (test code = 0303091876) LV Systolic Volume 79.7 mL/m2 Index (BP) (test code = 4715939967) Radiology Study observation (narrative) (test code = 07396-8) INDIRA (test code = INDIRA) ?Left?Ventricle: Left [...] mL of Optison ultrasound enhancing agent used. [facility] 01:53:20 Test Item Value Reference Range Interpretation Comments Height (test code = in 4560044087) Weight (test code = lbs 5451389927) Systolic BP (test code mmHg = 8026223669) Diastolic BP (test code mmHg = 9179652832) Heart Rate (test code = bpm 6157091220) BSA (test code = 1.99 m2 0624327570) LVOT stroke volume 62.90 cm3 (test code = 6788023955) EF(Teich) (test code = 51.40 % 5920385630) LVIDD (test code = 6.00 cm 6351464654) LVIDS (test code = 4.40 cm 1171828071) Left Ventricular End 85.9 mL Systolic Volume by Teichholz Method (test code = 7045032) Left Ventricular End 176.7 mL Diastolic Volume by Teichholz Method (test code = 6575997) IVS (test code = 0.95 cm 8002596538) LVPWD (test code = 0.95 cm 4040726407) LVOT diameter (test 2.16 cm code = 8950984431) LVOT area (test code = 3.70 cm2 2836708220) FS (test code = 27 % 9526191423) MV Peak E Jayme (test 137.7 cm/s code = 0709963844) MV Peak A Jayme (test 89.4 cm/s code = 8511567036) E/A ratio (test code = ratio 0345228135) E wave decelartion time 0.16 s (test code = 2079186867) MV E/e' septal (test 4.6 cm/s code = 9592717252) LA Volume Index (BP) 48.7 mL/m2 (test code = 0913867040) LA volume (BP) (test 96.9 mL code = 5686846875) LVOT peak jayme (test 90.6 cm/s code = 4946379100) LVOT mn grad (test code mmHg = 9805432290) LA size (test code = 4.5 cm 3098492522) LAV(MOD-sp2) (test code 105.10 mL = 1855329330) LAV(MOD-sp4) (test code 80.90 mL = 3406071883) Tapse (test code = 1.82 cm 2644695047) Aortic valve mean 113.1 cm/s velocity (test code = 1905655304) Ao peak jayme (test code 186.0 cm/s = 8187988931) Ao VTI (test code = 32.9 cm 6471408836) AV LVOT peak gradient mmHg (test code = 3279206776) LVOT peak VTI (test 17.2 cm code = 7790004096) AV area by cont VTI 1.9 cm2 (test code = 7931203176) AV area peak jayme (test 1.8 cm2 code = 3538631059) LV V1 mean (test code = 56.60 cm/s 8602534107) Ao max PG (test code = 13.80 mm[Hg] 3640647051) MV Prop V (test code = 41.90 cm/s 1490766192) TR Peak Jayme (test code 352.5 cm/s = 3508174218) Triscuspid Valve mmHg Regurgitation Peak Gradient (test code = 0621291338) Ao root diam (test code 3.00 cm = 0695991627) AV peak gradient (test mmHg code = 7441980722) AV valve area (test 1.91 cm2 code = 8990966280) AV mean gradient (test mmHg code = 8423137800) Aortic root (test code 3.0 cm = 7797785096) Ao root annulus (test 3.0 cm code = 0696192987) PW (test code = 0.95 cm 0.6-1.0 7035192719) EF - 2D (test code = 51.40 % 07553394) Interventricular Septum 0.95 cm Diastolic Thickness by 2D (test code = 9972807) A4C EF (test code = 23.50 % 8684448926) EF(sp4-el) (test code = 25.00 % 3316021104) SV(MOD-sp4) (test code 49.40 mL = 1214368910) SV(sp4-el) (test code = 55.60 mL 9170216172) LV Diastolic Volume 208.5 mL (BP) (test code = 3171990903) A2C EF (test code = 25.80 % 6193909325) EF(MOD-bp) (test code = 23.90 % 3759728650) EF(sp2-el) (test code = 24.20 % 5536313422) LV Systolic Volume (BP) 158.6 mL (test code = 1434477544) SV(MOD-bp) (test code = 49.90 mL 5820579434) SV(MOD-sp2) (test code 52.70 mL = 5274637631) EF (test code = 2143663719) Left Ventricular Stroke 49.9 mL Volume by 2-D Biplane-MOD (test code = 0802792) LV Diastolic Volume 104.8 mL/m2 Index (BP) (test code = 6964856296) LV Systolic Volume 79.7 mL/m2 Index (BP) (test code = 8533483776) Radiology Study observation (narrative) (test code = 24209-3) INDIRA (test code = INDIRA) ?Left?Ventricle: Left [...] mL of Optison ultrasound enhancing agent used. [facility] GLUCOSE (AUTOMATED)2022-05-03 23:03:58 Test Item Value Reference Range Interpretation Comments POCT GLU (test code = 3513327294) 143 mg/dL 70-110 H Lab Interpretation (test code = Abnormal 03847-1) [facility] GLUCOSE (AUTOMATED)2022-05-03 23:03:58 Test Item Value Reference Range Interpretation Comments POCT GLU (test code = 4714158584) 143 mg/dL 70-110 H Lab Interpretation (test code = Abnormal 28638-0) [facility] GLUCOSE (AUTOMATED)2022-05-03 18:19:06 Test Item Value Reference Range Interpretation Comments POCT GLU (test code = 7923265391) 182 mg/dL 70-110 H Lab Interpretation (test code = Abnormal 20703-6) [facility] GLUCOSE (AUTOMATED)2022-05-03 18:19:06 Test Item Value Reference Range Interpretation Comments POCT GLU (test code = 5486386226) 182 mg/dL 70-110 H Lab Interpretation (test code = Abnormal 07318-5) [facility] GLUCOSE (AUTOMATED)2022-05-03 14:19:51 Test Item Value Reference Range Interpretation Comments POCT GLU (test code = 2226959499) 132 mg/dL 70-110 H Lab Interpretation (test code = Abnormal 17250-9) [facility] GLUCOSE (AUTOMATED)2022-05-03 14:19:51 Test Item Value Reference Range Interpretation Comments POCT GLU (test code = 5063594817) 132 mg/dL 70-110 H Lab Interpretation (test code = Abnormal 35277-4) [facility] Arterial Blood Gas.2022-05-03 07:51:10 Test Item Value Reference Range Interpretation Comments PH (test code = 2) 7.35-7.45 L PCO2 (test code = See_Comment H [Automate d message] 5399928573) The system [employer] generated this result transmitted ref erence range: 35 - 45 mmHg. The reference r lucille was not used to interpret this result as normal/abnor mal. PO2 (test code = See_Comment L [Automated message] 0305265178) The system [employer] generated this result transmitted ref erence range: 80 - 100 mmHg. The reference r lucille was not used to interpret this result as normal/abnor mal. HCO3 (test code = See_Comment [Automate d message] 3934355565) The system Pro[employer] generated this result transmitted ref erence range: 22 - 26 mEq/L. The reference r lucille was not used to interpret this result as normal/abnor mal. BE (test code = See_Comment L [Automated message] [id number]) The system [employer] generated this result transmitted ref erence range: -3.0 - 3 .0 mEq/L. The refe rence range was not u sed to interpret this result as normal/abnor mal. Lab Interpretation (test Abnormal code = 22860-3) [facility] Arterial Blood Gas.2022-05-03 07:51:10 Test Item Value Reference Range Interpretation Comments PH (test code = 2) 7.35-7.45 L PCO2 (test code = See_Comment H [Automate d message] [id number]) The system [employer] generated this result transmitted ref erence range: 35 - 45 mmHg. The reference r lucille was not used to interpret this result as normal/abnor mal. PO2 (test code = See_Comment L [Automated message] 5350721191) The system [employer] generated this result transmitted ref erence range: 80 - 100 mmHg. The reference r lucille was not used to interpret this result as normal/abnor mal. HCO3 (test code = See_Comment [Automate d message] 6216077968) The system [employer] generated this result transmitted ref erence range: 22 - 26 mEq/L. The reference r lucille was not used to interpret this result as normal/abnor mal. BE (test code = See_Comment L [Automated message] 9401851575) The system [employer] generated this result transmitted ref erence range: -3.0 - 3 .0 mEq/L. The refe rence range was not u sed to interpret this result as normal/abnor mal. Lab Interpretation (test Abnormal code = 43532-7) [facility] Arterial Blood Gas.2022-05-03 07:51:10 Test Item Value Reference Range Interpretation Comments PH (test code = 2) 7.28 7.35-7.45 L PCO2 (test code = 48 See_Comment H [Automate d message] [id number]) The system [employer] generated this result transmitted ref erence range: 35 - 45 mmHg. The reference r lucille was not used to interpret this result as normal/abnor mal. PO2 (test code = 69 See_Comment L [Automated message] [id number]) The system [employer] generated this result transmitted ref erence range: 80 - 100 mmHg. The reference r lucille was not used to interpret this result as normal/abnor mal. HCO3 (test code = 22 See_Comment [Automate d message] 9323446873) The system [employer] generated this result transmitted ref erence range: 22 - 26 mEq/L. The reference r lucille was not used to interpret this result as normal/abnor mal. BE (test code = -5.0 See_Comment L [Automated message] 0891037801) The system [employer] generated this result transmitted ref erence range: -3.0 - 3 .0 mEq/L. The refe rence range was not u sed to interpret this result as normal/abnor mal. Lab Interpretation (test Abnormal code = 74628-6) [facility] GLUCOSE (AUTOMATED)2022-05-03 03:31:08 Test Item Value Reference Range Interpretation Comments POCT GLU (test code = 5728793411) 129 mg/dL 70-110 H Lab Interpretation (test code = Abnormal 88875-5) [facility] GLUCOSE (AUTOMATED)2022-05-03 03:31:08 Test Item Value Reference Range Interpretation Comments POCT GLU (test code = 3729642373) 129 mg/dL 70-110 H Lab Interpretation (test code = Abnormal 58136-3) [facility] GLUCOSE (AUTOMATED)2022-05-03 00:07:06 Test Item Value Reference Range Interpretation Comments POCT GLU (test code = 1050467715) 140 mg/dL 70-110 H Lab Interpretation (test code = Abnormal 75843-8) [facility] GLUCOSE (AUTOMATED)2022-05-03 00:07:06 Test Item Value Reference Range Interpretation Comments POCT GLU (test code = 9924986011) 140 mg/dL 70-110 H Lab Interpretation (test code = Abnormal 54051-4) [facility] GLUCOSE (AUTOMATED)2022-05-02 19:38:18 Test Item Value Reference Range Interpretation Comments POCT GLU (test code = 7018844615) 151 mg/dL 70-110 H Lab Interpretation (test code = Abnormal 15808-9) [facility] GLUCOSE (AUTOMATED)2022-05-02 19:38:18 Test Item Value Reference Range Interpretation Comments POCT GLU (test code = 9163355087) 151 mg/dL 70-110 H Lab Interpretation (test code = Abnormal 13189-5) [facility] GLUCOSE (AUTOMATED)2022-05-02 15:22:18 Test Item Value Reference Range Interpretation Comments POCT GLU (test code = 3475599834) 102 mg/dL 70-110 Lab Interpretation (test code = Normal 72538-4) [facility] GLUCOSE (AUTOMATED)2022-05-02 15:22:18 Test Item Value Reference Range Interpretation Comments POCT GLU (test code = 9476146719) 102 mg/dL 70-110 Lab Interpretation (test code = Normal 14356-5) [facility] GLUCOSE (AUTOMATED)2022-05-02 05:11:38 Test Item Value Reference Range Interpretation Comments POCT GLU (test code = 9177701315) 90 mg/dL 70-110 Lab Interpretation (test code = Normal 43886-0) [facility] GLUCOSE (AUTOMATED)2022-05-02 05:11:38 Test Item Value Reference Range Interpretation Comments POCT GLU (test code = 3960387423) 90 mg/dL 70-110 Lab Interpretation (test code = Normal 33814-7) [facility]22-05-02 04:00:41 Test Item Value Reference Range Interpretation Comments HGB A1C (test code = 5.9 % 4.0-5.7 H 4548-4) INDIRA (test code = INDIRA) Reference RangesNormal: <5.7%Prediabetes: 5.7 - 6.4%Diabetes: > 6.5% Lab Interpretation (test Abnormal code = 48248-1) [facility]2022-05-02 04:00:41 Test Item Value Reference Range Interpretation Comments HGB A1C (test code = 5.9 % 4.0-5.7 H 4548-4) INDIRA (test code = INDIRA) Reference RangesNormal: <5.7%Prediabetes: 5.7 - 6.4%Diabetes: > 6.5% Lab Interpretation (test Abnormal code = 77352-8) [facility]2022-05-02 04:00:41 Test Item Value Reference Range Interpretation Comments HGB A1C (test code = 5.9 % 4.0-5.7 H 4548-4) INDIRA (test code = INDIRA) Reference RangesNormal: <5.7%Prediabetes: 5.7 - 6.4%Diabetes: > 6.5% Lab Interpretation (test Abnormal code = 65566-7) [facility] [id number] 02:09:40 Test Item Value Reference Range Interpretation Comments FERRITIN (test code = 159.0 ng/mL 11.0-264.0 8700837299) INDIRA (test code = INDIRA) Biotin has been reported to cause a negative bias, interpret results relative to patient's use of biotin. Lab Interpretation (test Normal code = 87251-5) [facility] [id number] 02:09:40 Test Item Value Reference Range Interpretation Comments FERRITIN (test code = 159.0 ng/mL 11.0-264.0 1531940976) INDIRA (test code = INDIRA) Biotin has been reported to cause a negative bias, interpret results relative to patient's use of biotin. Lab Interpretation (test Normal code = 08837-6) [facility] [id number] 02:09:40 Test Item Value Reference Range Interpretation Comments FERRITIN (test code = 159.0 ng/mL 11.0-264.0 8920854596) INDIRA (test code = INDIRA) Biotin has been reported to cause a negative bias, interpret results relative to patient's use of biotin. Lab Interpretation (test Normal code = 61509-0) [facility] [id number] 01:41:39 Test Item Value Reference Range Interpretation Comments IRON (test code = 7710379466) 56 ug/dL 50-160 TIBC (test code = 1853142238) 325 ug/dL 250-410 % FE SAT (test code = 4141217354) 17 % 20-50 L Lab Interpretation (test code = Abnormal 64142-7) [facility] [id number] 01:41:39 Test Item Value Reference Range Interpretation Comments IRON (test code = 9901299022) 56 ug/dL 50-160 TIBC (test code = 8619003116) 325 ug/dL 250-410 % FE SAT (test code = 8826491530) 17 % 20-50 L Lab Interpretation (test code = Abnormal 28194-8) [facility] [id number] 01:41:39 Test Item Value Reference Range Interpretation Comments IRON (test code = 5941287470) 56 ug/dL 50-160 TIBC (test code = 2897327673) 325 ug/dL 250-410 % FE SAT (test code = 3880767268) 17 % 20-50 L Lab Interpretation (test code = Abnormal 70580-6) [facility] [id number] 19:50:59 Test Item Value Reference Range Interpretation Comments NT-proBNP (test code 77084 pg/mL See_Comment H [Autom ated = 1916346892) message] The system which generated this result transmitted reference range : <=125. The reference range was not used to interpret this result as normal/abnormal . INDIRA (test code = INDIRA) Biotin has been reported to cause a negative bias, interpret results relative to patient's use of biotin. Lab Interpretation Abnormal (test code = 25847-0) [facility] [id number] 19:50:59 Test Item Value Reference Range Interpretation Comments NT-proBNP (test code 03527 pg/mL See_Comment H [Autom ated = 2134341788) message] The system which generated this result transmitted reference range : <=125. The reference range was not used to interpret this result as normal/abnormal . INDIRA (test code = INDIRA) Biotin has been reported to cause a negative bias, interpret results relative to patient's use of biotin. Lab Interpretation Abnormal (test code = 06859-7) [facility] WITH [id number] 19:25:27 Test Item Value Reference Range Interpretation Comments WBC (test code = See_Comment [Automated 8490-2) message] The sy stem which generated this result transmitted reference range : 4.30 - 11.10 10*3/?L. The reference range was not used to interpret this result as normal/abnormal . RBC (test code = See_Comment [Automated 789-8) message] The sy stem which [...] (test code = 52.3 fL 39.0-49.9 H 88196-0) RDW-CV (test code = 15.8 % 12.0-15.5 H 788-0) PLT (test code = See_Comment [Automated 777-3) message] The sy stem which generated this result transmitted reference range : 166 - 358 10*3/ ?L. The reference r lucille was not used to interpret this result as normal/abnormal . MPV (test code = 11.2 fL 9.5-12.9 73716-9) IPF % (test code = 1.6 % 1.3-7.7 Platelet count 2544088917) measured by fluorescence method. NRBC/100 WBC (test See_Comment [Automat ed code = 3644678664) message] The system which generated this result transmitted reference range : 0.0 - 10.0 /100 WBCs. The refer ence range was not u sed to interpret th is result as normal/abnormal . NRBC x10^3 (test code See_Comment [Auto mated = 4653685241) message] The s ystem which generated this result transmitted reference range : 10*3/?L. The reference range was not used to interpret this result as normal/abnormal . GRAN MAT (NEUT) % 83.8 % (test code = 770-8) IMM GRAN % (test code 0.60 % = 8515338849) LYMPH % (test code = 9.0 % 736-9) MONO % (test code = 5.0 % 5905-5) EOS % (test code = 1.0 % 713-8) BASO % (test code = 0.6 % 706-2) GRAN MAT x10^3(ANC) 7.04 10*3/uL 1.88-7.09 (test code = 7002831359) IMM GRAN x10^3 (test 0.05 10*3/uL 0.00-0.06 code = 7567835009) LYMPH x10^3 (test code 0.76 10*3/uL 1.32-3.29 [...] 2+ See_Comment A [Automat ed code = 14609-0) message] The system which generated this result transmitted reference range : (none). The reference range was not used to interpret this result as normal/abnormal . HJ BODIES (test code = Present A 7793-3) POLYCHROMASIA (test 2+ See_Comment [Automa alex code = 84721-1) message] The system which generated this result transmitted reference range : 2+. The referen ce range was not u sed to interpret th is result as normal/abnormal . SCHISTOCYTES (test 1+ A code = 800-3) TARGET CELLS (test 2+ See_Comment A [Automat ed code = 22297-4) message] The system which generated this result transmitted reference range : (none). The reference range was not used to interpret this result as normal/abnormal . Lab Interpretation Abnormal (test code = 51385-2) [facility] WITH [id number] 19:25:27 Test Item Value Reference Range Interpretation Comments WBC (test code = 8.40 See_Comment [Automated 3690-2) message] The sy stem which generated this result transmitted reference range : 4.30 - 11.10 10*3/?L. The reference range was not used to interpret this result as normal/abnormal . RBC (test code = 4.15 See_Comment [Automated 789-8) message] The sy stem which [...] (test code = 52.3 fL 39.0-49.9 H 50510-5) RDW-CV (test code = 15.8 % 12.0-15.5 H 788-0) PLT (test code = 196 See_Comment [Automated 777-3) message] The sy stem which generated this result transmitted reference range : 166 - 358 10*3/ ?L. The reference r lucille was not used to interpret this result as normal/abnormal . MPV (test code = 11.2 fL 9.5-12.9 87609-0) IPF % (test code = 1.6 % 1.3-7.7 Platelet count 4689845316) measured by fluorescence method. NRBC/100 WBC (test 0.4 See_Comment [Automat ed code = 3197805375) message] The system which generated this result transmitted reference range : 0.0 - 10.0 /100 WBCs. The refer ence range was not u sed to interpret th is result as normal/abnormal . NRBC x10^3 (test code 0.03 See_Comment [Auto mated = 1665983265) message] The s ystem which generated this result transmitted reference range : 10*3/?L. The reference range was not used to interpret this result as normal/abnormal . GRAN MAT (NEUT) % 83.8 % (test code = 770-8) IMM GRAN % (test code 0.60 % = 4998647307) LYMPH % (test code = 9.0 % 736-9) MONO % (test code = 5.0 % 5905-5) EOS % (test code = 1.0 % 713-8) BASO % (test code = 0.6 % 706-2) GRAN MAT x10^3(ANC) 7.04 10*3/uL 1.88-7.09 (test code = 1709266414) IMM GRAN x10^3 (test 0.05 10*3/uL 0.00-0.06 code = 9909194632) LYMPH x10^3 (test code 0.76 10*3/uL 1.32-3.29 [...] 2+ See_Comment A [Automat ed code = 26196-0) message] The system which generated this result transmitted reference range : (none). The reference range was not used to interpret this result as normal/abnormal . HJ BODIES (test code = Present A 7793-3) POLYCHROMASIA (test 2+ See_Comment [Automa alex code = 98108-2) message] The system which generated this result transmitted reference range : 2+. The referen ce range was not u sed to interpret th is result as normal/abnormal . SCHISTOCYTES (test 1+ A code = 800-3) TARGET CELLS (test 2+ See_Comment A [Automat ed code = 37854-6) message] The system which generated this result transmitted reference range : (none). The reference range was not used to interpret this result as normal/abnormal . Lab Interpretation Abnormal (test code = 98657-3) [facility] [id number] 19:12:22 Test Item Value Reference Interpretation Comments Range TROPONIN I (test 0.027 ng/mL See_Comment [Automated code = 0701069073) message] The system which generated this result [...] biotin. Lab Interpretation Normal (test code = 34560-8) [facility] [id number] 19:12:22 Test Item Value Reference Interpretation Comments Range TROPONIN I (test 0.027 ng/mL See_Comment [Automated code = 7653916427) message] The system which generated this result [...] biotin. Lab Interpretation Normal (test code = 89370-8) [facility]. METABOLIC PANEL (26790)2022-05-01 19:00:18 Test Item Value Reference Range Interpretation Comments NA (test code = 137 mmol/L 135-145 6007084841) K (test code = 4.7 mmol/L 3.5-5.0 1957118749) CL (test code = 107 mmol/L 98-108 5172427712) CO2 TOTAL (test code = 17 mmol/L 23-31 L 6967194944) AGAP (test code = 2-16 3653393720) BUN (test code = 79 mg/dL 7-23 H 4388561596) GLUCOSE (test code = 51 mg/dL 70-110 L 3111442454) CREATININE (test code = 6.62 mg/dL 0.50-1.04 H 9056183188) TOTAL BILI (test code = 0.6 mg/dL 0.1-1.7 6848440068) CALCIUM (test code = 8.4 mg/dL 8.6-10.6 L 2381911450) T PROTEIN (test code = 6.7 g/dL 6.3-8.2 4038998612) ALBUMIN (test code = 3.7 g/dL 3.5-5.0 8936366550) ALK PHOS (test code = 107 U/L 34-122 2153987861) ALTv (test code = 19 U/L 5-35 1742-6) AST(SGOT) (test code = 30 U/L 13-40 3573704482) eGFR (test code = mL/min/1.73m2 5569713071) INDIRA (test code = INDIRA) Association of [...] tests). Lab Interpretation Abnormal (test code = 48646-7) [facility]. METABOLIC PANEL (75454)2022-05-01 19:00:18 Test Item Value Reference Range Interpretation Comments NA (test code = 137 mmol/L 135-145 4178745379) K (test code = 4.7 mmol/L 3.5-5.0 3349824828) CL (test code = 107 mmol/L 98-108 6034566168) CO2 TOTAL (test code = 17 mmol/L 23-31 L 2777096670) AGAP (test code = 13 2-16 8207103380) BUN (test code = 79 mg/dL 7-23 H 2370257695) GLUCOSE (test code = 51 mg/dL 70-110 L 0382096912) CREATININE (test code = 6.62 mg/dL 0.50-1.04 H 3824520951) TOTAL BILI (test code = 0.6 mg/dL 0.1-1.3 0044079665) CALCIUM (test code = 8.4 mg/dL 8.6-10.6 L 8092428697) T PROTEIN (test code = 6.7 g/dL 6.3-8.2 5087195060) ALBUMIN (test code = 3.7 g/dL 3.5-5.0 4578298136) ALK PHOS (test code = 107 U/L 34-122 8104994666) ALTv (test code = 19 U/L 5-35 1742-6) AST(SGOT) (test code = 30 U/L 13-40 8239380883) eGFR (test code = 6.3 mL/min/1.73m2 1088298160) INDRIA (test code = INDIRA) Association of Glomerular [...] tests). Lab Interpretation Abnormal (test code = 41872-8) [facility] Acid Whole [id number] 18:48:48 Test Item Value Reference Range Interpretation Comments LACTIC ACID (test code = 1.17 mmol/L 0.50-2.20 5656149835) Lab Interpretation (test code = Normal 25072-1) [facility] [id number] 18:48:48 Test Item Value Reference Range Interpretation Comments LACTIC ACID (test code = 1.17 mmol/L 0.50-2.20 1296374220) Lab Interpretation (test code = Normal 67933-8) [facility] Acid Whole [id number] 18:48:48 Test Item Value Reference Range Interpretation Comments LACTIC ACID (test code = 1.17 mmol/L 0.50-2.20 8036732985) Lab Interpretation (test code = Normal 60045-5) [facility] METABOLIC [id number] 05:32:51 Test Item Value Reference Range Interpretation Comments GLUCOSE (test code 47 MG/DL 70-99 L = 2217) BUN (test code = 52 MG/DL 8-23 H 2207) CREATININE (test 5.18 MG/DL 0.60-1.30 H code = 2214) eGFR (2020 CKD-EPI) 9 ML/MIN/1.73 >60 L (test code = 99477) SODIUM (test code = 144 MEQ/L 378-594 4572) POTASSIUM (test 4.5 MEQ/L 3.5-5.4 code = 2228) CHLORIDE (test code 110 MEQ/L 95-107 H = 2215) CARBON DIOXIDE 21 MEQ/L 19-31 (test code = 2206) CALCIUM (test code 9.0 MG/DL 8.5-10.5 UNLESS O THERWISE = 2209) INDICATED, ALL TESTING PERFORM ED ATCLINICAL PATH OLOGY LABORATORIES, I [address] [place] [address] [facility] DIRECTOR: CLAUDIO HALL M.D. CLIA NUMBER [id number] CAP ACCREDITATION N O. [id number] HEMOGLOBIN [id number] 04:40:08 Test Item Value Reference Range Interpretation Comments HEMOGLOBIN A1c (test 7.2 % 4.2-5.6 H [employer]IC AN DIABETES code = 77859) ASSOCIATION IDELINES FOR HGB A1C: PREDIABETES/INC REASED [...] OTHERWIS E INDICATED, ALL TESTING PER [facility] LAB[facility]ATORIES, I [place]. [address] [place], [place] [address] LABORATORY DIRE CTOR: CLAUDIO HALL M.D. CLIA NUMBER [id number] [place]. [id number] H. PYLORI (BREATH)2021-11-28 13:35:23 Test Item Value Reference Range Interpretation Comments H. PYLORI (BREATH) NEGATIVE NEGATIVE UNLESS O THERWISE (test code = 24761) INDICATE D, ALL TESTING PERFORMED [facility] NICNV PATHOLOGY [facility] [address] [place] [address] [facility] DIRECTOR: CLAUDIO HALL M.D. CLIA NUMBER [id number] CAP ACCREDITATION N O. [id number] TSH, THIRD [id number] 07:00:14 Test Item Value Reference Range Interpretation Comments TSH, THIRD GENERATION (test code 2.490 UIU/ML 0.400-4.100 = 2821) LIPID [id number] 05:47:30 Test Item Value Reference Range Interpretation [...] , SEE CLIENT ANNOUNCE MENT AT [email or web address] [email or web address] RATIO LDL/HDL 1.21 RATIO <3.22 (test code = 2238) COMPREHENSIVE METABOLIC [id number] 05:47:30 Test Item Value Reference Range Interpretation Comments GLUCOSE (test code = 76 MG/DL 70-99 2216) BUN (test code = 46 MG/DL 8-23 H 2207) CREATININE (test 3.69 MG/DL 0.60-1.30 H code = 221) eGFR (2020 CKD-EPI) 13 ML/MIN/1.73 >60 L (test code = 48473) CALC BUN/CREAT (test 12 RATIO 6-28 code = 2235) SODIUM (test code = 141 MEQ/L 992-310 9005) POTASSIUM (test code 5.0 MEQ/L 3.5-5.4 = 2227) CHLORIDE (test code 108 MEQ/L 95-107 H = 2214) CARBON DIOXIDE (test 18 MEQ/L 19-31 L code = 220) CALCIUM (test code = 9.3 MG/DL 8.5-10.5 2208) PROTEIN, TOTAL (test 6.4 G/DL 6.1-8.3 code = 222) ALBUMIN (test code = 3.6 G/DL 3.5-5.2 [...] 153 U/L 40-140 H (test code = 2204) AST (test code = 19 U/L 9-40 2217) ALT (test code = 13 U/L 5-40 2218) CBC W/AUTO DIFF WITH [id number] 01:54:48 Test Item Value Reference Range Interpretation [...] RBCS 0.00 K/UL 0.00-0.11 (test code = 20645) TSH, THIRD [id number] 01:43:38 Test Item Value Reference Range Interpretation Comments TSH, THIRD 2.160 UIU/ML 0.400-4.100 UNLESS OTHERWI SE GENERATION (test INDICATED, ALL TESTING code = 2821) PERFORMED [facility] PATHOLOGY LABORATORIES, [address] [place] [address] [facility] DIRECTOR: CLAUDIO HALL M.D. CLIA NUMBER [id number] CAP ACCREDITATION N O. [id number] LIPID [id number] 01:12:10 Test Item Value Reference Range Interpretation [...] MOREINFORMATION , SEE CLIENT ANNOUNCE MENT AT [email or web address] [email or web address] RATIO LDL/HDL 1.36 RATIO <3.22 (test code = 2238) COMPREHENSIVE METABOLIC [id number] 01:12:10 Test Item Value Reference Range Interpretation Comments GLUCOSE (test code = 228 MG/DL 70-99 H 2216) BUN (test code = 58 MG/DL 8-23 H 2207) CREATININE (test 4.12 MG/DL 0.60-1.30 H code = 2214) eGFR (2020 CKD-EPI) 12 ML/MIN/1.73 >60 L (test code = 03779) CALC BUN/CREAT (test 14 RATIO 6-28 code = 2235) SODIUM (test code = 140 MEQ/L 763-966 6091) POTASSIUM (test code 4.9 MEQ/L 3.5-5.4 = 2228) CHLORIDE (test code 106 MEQ/L 95-107 = 2215) CARBON DIOXIDE (test 20 MEQ/L 19-31 code = 2206) CALCIUM (test code = 9.2 MG/DL 8.5-10.5 2208) PROTEIN, TOTAL (test 6.1 G/DL 6.1-8.3 code = 2229) ALBUMIN (test code = 3.5 G/DL 3.5-5.2 [...] 148 U/L 40-140 H (test code = 220) AST (test code = 14 U/L 9-40 2217) ALT (test code = 13 U/L 5-40 2218) [id number] 18:46:20 Test Item Value Reference Range Interpretation Comments MAGNESIUM (test code = 5006878485) 1.8 mg/dL 1.7-2.4 Lab Interpretation (test code = Normal 92417-5) [facility] [id number] 18:46:00 Test Item Value Reference Range Interpretation Comments ALBUMIN (test code = 4.0 g/dL 3.5-5.0 3291262130) CALCIUM (test code = 9.3 mg/dL 8.6-10.6 0367370219) CO2 TOTAL (test code = 32 mmol/L 23-31 H 4114095464) CREATININE (test code = 3.42 mg/dL 0.50-1.04 H 1368792966) GLUCOSE (test code = 193 mg/dL 70-110 H 9916568653) K (test code = 4.4 mmol/L 3.5-5.0 8341869565) NA (test code = 132 mmol/L 135-145 L 4091979664) BUN (test code = 82 mg/dL 7-23 H 9049068271) PHOSPHORUS (test code = 4.5 mg/dL 2.5-5.0 1148413778) eGFR (test code = mL/min/1.73m2 7472640057) INDIRA (test code = INDIRA) Association of [...] tests). Lab Interpretation Abnormal (test code = 93523-4) [facility] [id number] 18:45:40 Test Item Value Reference Range Interpretation Comments URIC ACID (test code = 6843052121) 13.7 mg/dL 2.9-6.0 H Lab Interpretation (test code = Abnormal 29643-8) [facility] WITH [id number] 18:07:59 Test Item Value Reference Range Interpretation Comments WBC (test code = See_Comment [Automated 3990-2) message] The sy stem which generated this result transmitted reference range : 4.30 - 11.10 10*3/?L. The reference range was not used to interpret this result as normal/abnormal . RBC (test code = See_Comment L [Automated 809-8) message] The sy stem which generated this [...] RDW-SD (test code = 46.8 fL 39.0-49.9 90990-7) RDW-CV (test code = 14.0 % 12.0-15.5 788-0) PLT (test code = See_Comment [Automated 777-3) message] The sy stem which generated this result transmitted reference range : 166 - 358 10*3/ ?L. The reference r lucille was not used to interpret this result as normal/abnormal . MPV (test code = 11.7 fL 9.5-12.9 58832-3) NRBC/100 WBC (test See_Comment [Automat ed code = 3193316327) message] The system which generated this result transmitted reference range : 0.0 - 10.0 /100 WBCs. The refer ence range was not u sed to interpret th is result as normal/abnormal . NRBC x10^3 (test code <0.01 See_Comment [Auto mated = 9243035370) message] The s ystem which generated this result transmitted reference range : 10*3/?L. The reference range was not used to interpret this result as normal/abnormal . GRAN MAT (NEUT) % 72.3 % (test code = 770-8) IMM GRAN % (test code 0.50 % = 8260104013) LYMPH % (test code = 15.6 % 736-9) MONO % (test code = 6.5 % 5905-5) EOS % (test code = 4.7 % 713-8) BASO % (test code = 0.4 % 706-2) GRAN MAT x10^3(ANC) 6.99 10*3/uL 1.88-7.09 (test code = 1175778997) IMM GRAN x10^3 (test 0.05 10*3/uL 0.00-0.06 code = 0735725820) LYMPH x10^3 (test code 1.51 10*3/uL 1.32-3.29 = 731-0) MONO x10^3 (test code 0.63 10*3/uL 0.33-0.92 = 742-7) EOS x10^3 (test code = 0.45 10*3/uL 0.03-0.39 H 711-2) BASO x10^3 (test code 0.04 10*3/uL 0.01-0.07 = 704-7) Lab Interpretation Abnormal (test code = 55600-9) [facility] 13:34:05 Test Item Value Reference Range Interpretation Comments POCT GLU (test code = 9783343082) 137 mg/dL 70-110 H Lab Interpretation (test code = Abnormal 63389-3) [facility] METABOLIC PANEL (NA, K, CL, CO2, GLUCOSE, BUN, CREATININE, CA)2021-05-04 13:21:05 Test Item Value Reference Range Interpretation Comments NA (test code = 133 mmol/L 135-145 L 4182782421) K (test code = 3.8 mmol/L 3.5-5.0 5175597401) CL (test code = 98 mmol/L 98-108 8705661183) CO2 TOTAL (test code = 26 mmol/L 23-31 8871245555) AGAP (test code = 2-16 2130797676) BUN (test code = 103 mg/dL 7-23 H 6820175669) GLUCOSE (test code = 134 mg/dL 70-110 H 1369800494) CREATININE (test code = 3.88 mg/dL 0.50-1.04 H 1593191594) CALCIUM (test code = 8.3 mg/dL 8.6-10.6 L 1573879843) eGFR (test code = mL/min/1.73m2 7994988764) INDIRA (test code = INDIRA) Association of [...] tests). Lab Interpretation Abnormal (test code = 22721-2) [facility] GLUCOSE (AUTOMATED)2021-05-04 06:30:37 Test Item Value Reference Range Interpretation Comments POCT GLU (test code = 9575006119) 244 mg/dL 70-110 H Lab Interpretation (test code = Abnormal 19510-3) [facility] GLUCOSE (AUTOMATED)2021-05-04 01:22:49 Test Item Value Reference Range Interpretation Comments POCT GLU (test code = 3223495289) 295 mg/dL 70-110 H Lab Interpretation (test code = Abnormal 58562-0) [facility] GLUCOSE (AUTOMATED)2021-05-03 22:18:16 Test Item Value Reference Range Interpretation Comments POCT GLU (test code = 8579474400) 309 mg/dL 70-110 H Lab Interpretation (test code = Abnormal 03995-3) [facility] GLUCOSE (AUTOMATED)2021-05-03 18:28:39 Test Item Value Reference Range Interpretation Comments POCT GLU (test code = 1359833842) 274 mg/dL 70-110 H Lab Interpretation (test code = Abnormal 08643-9) [facility] GLUCOSE (AUTOMATED)2021-05-03 14:15:50 Test Item Value Reference Range Interpretation Comments POCT GLU (test code = 2897425934) 147 mg/dL 70-110 H Lab Interpretation (test code = Abnormal 04653-0) [facility] [id number] 13:54:02 Test Item Value Reference Range Interpretation Comments NT-proBNP (test code 24274 pg/mL See_Comment H [Autom ated = 8795914598) message] The system which generated this result transmitted reference range : <=125. The reference range was not used to interpret this result as normal/abnormal . INDIRA (test code = INDIRA) Biotin has been reported to cause a negative bias, interpret results relative to patient's use of biotin. Lab Interpretation Abnormal (test code = 35483-7) [facility] METABOLIC PANEL (NA, K, CL, CO2, GLUCOSE, BUN, CREATININE, CA)2021-05-03 13:12:28 Test Item Value Reference Range Interpretation Comments NA (test code = 132 mmol/L 135-145 L 2492072218) K (test code = 4.2 mmol/L 3.5-5.0 0738377420) CL (test code = 101 mmol/L 98-108 2761797299) CO2 TOTAL (test code = 23 mmol/L 23-31 6768662068) AGAP (test code = 2-16 3371785204) BUN (test code = 96 mg/dL 7-23 H 5203233678) GLUCOSE (test code = 147 mg/dL 70-110 H 7230393470) CREATININE (test code = 3.70 mg/dL 0.50-1.04 H 5634978324) CALCIUM (test code = 8.3 mg/dL 8.6-10.6 L 3184774745) eGFR (test code = mL/min/1.73m2 0255017642) INDIRA (test code = INIDRA) Association of Glomerular Filtration Rate (GFR) and [...] tests). Lab Interpretation Abnormal (test code = 23662-7) [facility] WITH [id number] 12:05:23 Test Item Value Reference Range Interpretation Comments WBC (test code = See_Comment [Automated 90-2) message] The sy stem which generated this result transmitted reference range : 4.30 - 11.10 10*3/?L. The reference range was not used to interpret this result as normal/abnormal . RBC (test code = See_Comment L [Automated 149-8) message] The sy stem which generated this [...] RDW-SD (test code = 47.8 fL 39.0-49.9 75611-0) RDW-CV (test code = 14.5 % 12.0-15.5 788-0) PLT (test code = See_Comment [Automated 777-3) message] The sy stem which generated this result transmitted reference range : 166 - 358 10*3/ ?L. The reference r lucille was not used to interpret this result as normal/abnormal . MPV (test code = 11.9 fL 9.5-12.9 34396-7) NRBC/100 WBC (test See_Comment [Automat ed code = 3028012386) message] The system which generated this result transmitted reference range : 0.0 - 10.0 /100 WBCs. The refer ence range was not u sed to interpret th is result as normal/abnormal . NRBC x10^3 (test code See_Comment [Auto mated = 0095405099) message] The s ystem which generated this result transmitted reference range : 10*3/?L. The reference range was not used to interpret this result as normal/abnormal . GRAN MAT (NEUT) % 78.9 % (test code = 770-8) IMM GRAN % (test code 0.50 % = 9894814399) LYMPH % (test code = 12.8 % 736-9) MONO % (test code = 7.7 % 5905-5) EOS % (test code = 0.0 % 713-8) BASO % (test code = 0.1 % 706-2) GRAN MAT x10^3(ANC) 5.84 10*3/uL 1.88-7.09 (test code = 5732917802) IMM GRAN x10^3 (test 0.04 10*3/uL 0.00-0.06 code = 3760837112) LYMPH x10^3 (test code 0.95 10*3/uL 1.32-3.29 L = 731-0) MONO x10^3 (test code 0.57 10*3/uL 0.33-0.92 = 742-7) EOS x10^3 (test code = <0.03 0.03-0.39 L 711-2) BASO x10^3 (test code <0.03 0.01-0.07 = 704-7) Lab Interpretation Abnormal (test code = 69379-7) [facility] GLUCOSE (AUTOMATED)2021-05-03 11:00:31 Test Item Value Reference Range Interpretation Comments POCT GLU (test code = 147 mg/dL 70-110 H Notifi ed Provider [id number]) Lab Interpretation (test Abnormal code = 84007-8) [facility] GLUCOSE (AUTOMATED)2021-05-03 06:32:35 Test Item Value Reference Range Interpretation Comments POCT GLU (test code = 255 mg/dL 70-110 H Notifi ed Provider [id number]) Lab Interpretation (test Abnormal code = 71971-4) [facility] GLUCOSE (AUTOMATED)2021-05-03 02:38:08 Test Item Value Reference Range Interpretation Comments POCT GLU (test code = 8432712444) 300 mg/dL 70-110 H Lab Interpretation (test code = Abnormal 87132-7) [facility] GLUCOSE (AUTOMATED)2021-05-02 22:57:17 Test Item Value Reference Range Interpretation Comments POCT GLU (test code = 9816651840) 380 mg/dL 70-110 H Lab Interpretation (test code = Abnormal 71819-7) [facility] GLUCOSE (AUTOMATED)2021-05-02 18:00:55 Test Item Value Reference Range Interpretation Comments POCT GLU (test code = 6533705123) 350 mg/dL 70-110 H Lab Interpretation (test code = Abnormal 81776-6) [facility] CAL[facility] [id number] 17:49:16 Test Item Value Reference Range Interpretation Comments PTH-INTACT (test code = 278.6 pg/mL 12.0-88.0 H 5466198060) PTH-CA Interpretation Furthe r clinical (test code = 3966915079) rafael a needed for interpretation. CALCIUM (test code = 8.0 mg/dL 8.6-10.6 L 2401635706) Lab Interpretation (test Abnormal code = 20701-3) [facility] [id number] 15:36:16 Test Item Value Reference Range Interpretation Comments NT-proBNP (test code 01093 pg/mL See_Comment H [Autom ated = 5873823515) message] The system which generated this result transmitted reference range : <=125. The reference range was not used to interpret this result as normal/abnormal . INDIRA (test code = INDIRA) Biotin has been reported to cause a negative bias, interpret results relative to patient's use of biotin. Lab Interpretation Abnormal (test code = 47379-2) [facility]view[facility]rit[facility] [id number] 15:28:38 Test Item Value Reference Range Interpretation Comments FERRITIN (test code = 579.0 ng/mL 11.0-264.0 H 8612940271) INDIRA (test code = INDIRA) Biotin has been reported to cause a negative bias, interpret results relative to patient's use of biotin. Lab Interpretation (test Abnormal code = 95847-9) [facility]view[facility]YROID STIMULATING [id number] 15:24:40 Test Item Value Reference Range Interpretation Comments TSH (test code = See_Comment L [Automated message] 8031368272) The system [employer] generated this result transmitted ref erence range: 0.45 - 4 .70 mIU/L. The refe rence range was not u sed to interpret this result as normal/abnor mal. Lab Interpretation (test Abnormal code = 10967-1) [facility]OP[facility] [id number] 15:06:20 Test Item Value Reference Interpretation Comments Range TROPONIN I (test 0.070 ng/mL See_Comment H [Automated code = 9041534137) message] The system which generated this result [...] biotin. Lab Interpretation Abnormal (test code = 16144-6) [facility]2022-01-08 14:54:15 Test Item Value Reference Range Interpretation Comments MAGNESIUM (test code = 9206825114) 2.3 mg/dL 1.7-2.4 Lab Interpretation (test code = Normal 50895-8) [facility]. METABOLIC PANEL (60170)2021-05-02 14:53:55 Test Item Value Reference Range Interpretation Comments NA (test code = 131 mmol/L 135-145 L 5911154344) K (test code = 5.3 mmol/L 3.5-5.0 H 3605485906) CL (test code = 105 mmol/L 98-108 8341427782) CO2 TOTAL (test code = 17 mmol/L 23-31 L 4006190635) AGAP (test code = 2-16 2737165498) BUN (test code = 82 mg/dL 7-23 H 2600111658) GLUCOSE (test code = 235 mg/dL 70-110 H 4817688854) CREATININE (test code = 3.48 mg/dL 0.50-1.04 H 4865912281) TOTAL BILI (test code = 0.3 mg/dL 0.1-1.4 4774013351) CALCIUM (test code = 8.0 mg/dL 8.6-10.6 L 3155650698) T PROTEIN (test code = 5.9 g/dL 6.3-8.2 L 9567803382) ALBUMIN (test code = 2.9 g/dL 3.5-5.0 L 9321281803) ALK PHOS (test code = 116 U/L 34-122 4313845708) ALTv (test code = 122 U/L 5-35 H 1742-6) AST(SGOT) (test code = 45 U/L 13-40 H 0742097156) eGFR (test code = mL/min/1.73m2 7448607340) INDIRA (test code = INDIRA) Association of [...] tests). Lab Interpretation Abnormal (test code = 64232-3) [facility]OS[facility]2022-[facility]-08 14:53:55 Test Item Value Reference Range Interpretation Comments PHOSPHORUS (test code = 0729037963) 5.2 mg/dL 2.5-5.0 H Lab Interpretation (test code = Abnormal 91953-0) [facility] [id number] 14:53:35 Test Item Value Reference Range Interpretation Comments IRON (test code = 4972646387) 42 ug/dL 50-160 L Lab Interpretation (test code = Abnormal 05904-7) [facility]TOTAL IRON BINDING [id number] 14:32:14 Test Item Value Reference Range Interpretation Comments TIBC (test code = 4532092148) 203 ug/dL 250-410 L Lab Interpretation (test code = Abnormal 17285-6) [facility]2021-05-02 13:47:04 Test Item Value Reference Range Interpretation Comments POCT GLU (test code = 9409787759) 257 mg/dL 70-110 H Lab Interpretation (test code = Abnormal 09125-9) [facility] WITH [id number] 13:08:09 Test Item Value Reference Range Interpretation [...] RDW-SD (test code = 48.2 fL 39.0-49.9 73164-9) RDW-CV (test code = 14.6 % 12.0-15.5 788-0) PLT (test code = See_Comment [Automated 777-3) message] The sy stem which generated this result transmitted reference range : 166 - 358 10*3/ ?L. The reference r lucille was not used to interpret this result as normal/abnormal . MPV (test code = 12.3 fL 9.5-12.9 06067-3) NRBC/100 WBC (test See_Comment [Automat ed code = 0165790440) message] The system which generated this result transmitted reference range : 0.0 - 10.0 /100 WBCs. The refer ence range was not u sed to interpret th is result as normal/abnormal . NRBC x10^3 (test code See_Comment [Auto mated = 2125631045) message] The s ystem which generated this result transmitted reference range : 10*3/?L. The reference range was not used to interpret this result as normal/abnormal . GRAN MAT (NEUT) % 78.4 % (test code = 770-8) IMM GRAN % (test code 0.80 % = 4579812538) LYMPH % (test code = 13.1 % 736-9) MONO % (test code = 7.5 % 5905-5) EOS % (test code = 0.0 % 713-8) BASO % (test code = 0.2 % 706-2) GRAN MAT x10^3(ANC) 5.01 10*3/uL 1.88-7.09 (test code = 3280153959) IMM GRAN x10^3 (test 0.05 10*3/uL 0.00-0.06 code = 2805148108) LYMPH x10^3 (test code 0.84 10*3/uL 1.32-3.29 [...] (test 2+ See_Comment [Automa alex code = 21949-4) message] The system which generated this result transmitted reference range : 2+. The referen ce range was not u sed to interpret th is result as normal/abnormal . SCHISTOCYTES (test 1+ A code = 800-3) Lab Interpretation Abnormal (test code = 21851-7) [facility] GLUCOSE (AUTOMATED)2021-05-02 08:11:51 Test Item Value Reference Range Interpretation Comments POCT GLU (test code = 251 mg/dL 70-110 H Notifi ed Provider 4726436372) Lab Interpretation (test Abnormal code = 06497-5) [facility] GLUCOSE (AUTOMATED)2021-05-02 02:45:02 Test Item Value Reference Range Interpretation Comments POCT GLU (test code = 5932835592) 341 mg/dL 70-110 H Lab Interpretation (test code = Abnormal 98524-7) [facility]ITAMIN D, [id number] 00:20:17 Test Item Value Reference Range Interpretation Comments VIT D 25OH (test code = <13 25-80 L 57670-5) INDIRA (test code = INDIRA) Deficiency: <20 ng/mLInsufficiency: 20-24 ng/mLOptimal: 25-80 ng/mL Lab Interpretation (test Abnormal code = 18101-6) [facility] GLUCOSE (AUTOMATED)2021-05-01 22:21:36 Test Item Value Reference Range Interpretation Comments POCT GLU (test code = 4986827872) 335 mg/dL 70-110 H Lab Interpretation (test code = Abnormal 35754-1) [facility]2022-01-07 17:15:46 Test Item Value Reference Range Interpretation Comments PHOSPHORUS (test code = 6458878865) 5.6 mg/dL 2.5-5.0 H Lab Interpretation (test code = Abnormal 82408-2) [facility]viewCREATINE [id number] 17:15:26 Test Item Value Reference Range Interpretation Comments CK (test code = 3331441021) 80 U/L 33-194 Lab Interpretation (test code = Normal 30918-8) [facility] GLUCOSE (AUTOMATED)2021-05-01 17:10:01 Test Item Value Reference Range Interpretation Comments POCT GLU (test code = 8217954648) 229 mg/dL 70-110 H Lab Interpretation (test code = Abnormal 39313-2) [facility]viewN-TERMINAL [id number] 16:04:24 Test Item Value Reference Range Interpretation Comments NT-proBNP (test code 00845 pg/mL See_Comment H [Autom ated = 8485169054) message] The system which generated this result transmitted reference range : <=125. The reference range was not used to interpret this result as normal/abnormal . INDIRA (test code = INDIRA) Biotin has been reported to cause a negative bias, interpret results relative to patient's use of biotin. Lab Interpretation Abnormal (test code = 39598-7) [facility]viewTROPONIN [id number] 15:24:34 Test Item Value Reference Interpretation Comments Range TROPONIN I (test 0.082 ng/mL See_Comment H [Automated code = 4799354539) message] The system which generated this result [...] biotin. Lab Interpretation Abnormal (test code = 47085-6) [facility]2021-05-01 13:42:17 Test Item Value Reference Range Interpretation Comments POCT GLU (test code = 0642070738) 178 mg/dL 70-110 H Lab Interpretation (test code = Abnormal 50690-8) [facility] LongviewMagnesium [id number] 12:36:00 Test Item Value Reference Range Interpretation Comments MAGNESIUM (test code = 4345461089) 2.5 mg/dL 1.7-2.4 H Lab Interpretation (test code = Abnormal 44518-8) [facility]viewHEPATIC FUNCTION PANEL (06486) (ALB,T.PRO,BILI T,BU/BC,ALT,AST,ALK PHOS)2021-05-01 12:36:00 Test Item Value Reference Range Interpretation Comments TOTAL BILI (test code = 4534067943) 0.4 mg/dL 0.1-1.1 BILI UNCON (test code = 8583714352) 0.0 mg/dL 0.1-1.1 L BILI CONJ (test code = 2228963297) 0.0 mg/dL 0.0-0.3 T PROTEIN (test code = 8886997395) 6.0 g/dL 6.3-8.2 L ALBUMIN (test code = 4701223538) 2.9 g/dL 3.5-5.0 L ALK PHOS (test code = 3485142195) 112 U/L 34-122 ALTv (test code = 1742-6) 146 U/L 5-35 H AST(SGOT) (test code = 3117400919) 77 U/L 13-40 H Lab Interpretation (test code = Abnormal 01127-5) [facility] Metabolic Panel (NA, K, CL, CO2, GLUCOSE, BUN, CREATININE, CA)2021-05-01 12:35:45 Test Item Value Reference Range Interpretation Comments NA (test code = 135 mmol/L 135-145 4748382881) K (test code = 5.5 mmol/L 3.5-5.0 H 9526212655) CL (test code = 110 mmol/L 98-108 H 2130335532) CO2 TOTAL (test code = 17 mmol/L 23-31 L 3363940055) AGAP (test code = 2-16 9442688811) BUN (test code = 66 mg/dL 7-23 H 2922916030) GLUCOSE (test code = 169 mg/dL 70-110 H 9284556986) CREATININE (test code = 3.15 mg/dL 0.50-1.04 H 5444354018) CALCIUM (test code = 8.0 mg/dL 8.6-10.6 L 0415941580) eGFR (test code = mL/min/1.73m2 4797142230) INDIRA (test code = INDIRA) Association of [...] tests). Lab Interpretation Abnormal (test code = 50128-0) [facility]viewLIPASE20[facility]07 12:35:45 Test Item Value Reference Range Interpretation Comments LIPASE (test code = 8921880670) 437 U/L 0-220 H Lab Interpretation (test code = Abnormal 36640-4) [facility]viewCBC with [id number] 12:10:14 Test Item Value Reference Range Interpretation [...] RDW-SD (test code = 49.1 fL 39.0-49.9 60449-7) RDW-CV (test code = 14.5 % 12.0-15.5 788-0) PLT (test code = See_Comment L [Automated 777-3) message] The sy stem which generated this result transmitted reference range : 166 - 358 10*3/ ?L. The reference r lucille was not used to interpret this result as normal/abnormal . MPV (test code = 12.3 fL 9.5-12.9 19643-1) NRBC/100 WBC (test See_Comment [Automat ed code = 4045867965) message] The system which generated this result transmitted reference range : 0.0 - 10.0 /100 WBCs. The refer ence range was not u sed to interpret th is result as normal/abnormal . NRBC x10^3 (test code See_Comment [Auto mated = 7620657822) message] The s ystem which generated this result transmitted reference range : 10*3/?L. The reference range was not used to interpret this result as normal/abnormal . GRAN MAT (NEUT) % 81.9 % (test code = 770-8) IMM GRAN % (test code 0.90 % = 7888126734) LYMPH % (test code = 11.3 % 736-9) MONO % (test code = 5.8 % 5905-5) EOS % (test code = 0.0 % 713-8) BASO % (test code = 0.1 % 706-2) GRAN MAT x10^3(ANC) 5.49 10*3/uL 1.88-7.09 (test code = 5887488439) IMM GRAN x10^3 (test 0.06 10*3/uL 0.00-0.06 code = 5716012255) LYMPH x10^3 (test code 0.76 10*3/uL 1.32-3.29 L = 731-0) MONO x10^3 (test code 0.39 10*3/uL 0.33-0.92 = 742-7) EOS x10^3 (test code = <0.03 0.03-0.39 L 711-2) BASO x10^3 (test code <0.03 0.01-0.07 = 704-7) Lab Interpretation Abnormal (test code = 99161-3) [facility]2021-[facility]-01 03:05:41 Test Item Value Reference Range Interpretation Comments POCT GLU (test code = 9770053696) 217 mg/dL 70-110 H Lab Interpretation (test code = Abnormal 35787-2) [facility]viewGLYCOSYLATED HEMOGLOBIN (A1C)2021-04-30 23:47:17 Test Item Value Reference Range Interpretation Comments HGB A1C (test code = 6.2 % 4.0-5.7 H 4548-4) INDIRA (test code = INDIRA) Reference RangesNormal: <5.7%Prediabetes: 5.7 - 6.4%Diabetes: > 6.5% Lab Interpretation (test Abnormal code = 23752-0) [facility]2021-04-30 23:10:21 Test Item Value Reference Range Interpretation Comments POCT GLU (test code = 9687387736) 258 mg/dL 70-110 H Lab Interpretation (test code = Abnormal 72667-0) [facility]viewTROPONIN [id number] 22:27:01 Test Item Value Reference Interpretation Comments Range TROPONIN I (test 0.085 ng/mL See_Comment H [Automated code = 2955709324) message] The system which generated this result [...] biotin. Lab Interpretation Abnormal (test code = 79612-2) [facility] LongviewLIPID PANEL (66834)(TOTAL CHOLESTEROL, TRIGLYCERIDES, HDL)2021-04-30 21:27:24 Test Item Value Reference Range Interpretation Comments CHOL (test code = 102 mg/dL 120-200 L 5075066297) HDL (test code = 21 mg/dL >50 L 7702047006) HDLC RATIO (test code = See_Comment H [Au tomated message] 1202861260) The system [employer] generated this result transmit alex reference range : <=4.5. The refe rence range was not u sed to interpret th is result as normal/abnormal . TRIG (test code = 136 mg/dL 30-170 8388888641) LDL CHOL (test code = 54 mg/dL See_Comment [Auto mated message] 03322-1) The system [employer] generated this result transmit alex reference range : <=160. The refe rence range was not u sed to interpret th is result as normal/abnormal . VLDL (test code = 27 mg/dL 5-60 3043441812) Lab Interpretation (test Abnormal code = 50863-9) [facility]. METABOLIC PANEL (09936)2021-04-30 13:58:33 Test Item Value Reference Range Interpretation Comments NA (test code = 133 mmol/L 135-145 L 9622725866) K (test code = 5.1 mmol/L 3.5-5.0 H 5022073361) CL (test code = 108 mmol/L 98-108 2473773059) CO2 TOTAL (test code = 18 mmol/L 23-31 L 0603400882) AGAP (test code = 2-16 0394140680) BUN (test code = 63 mg/dL 7-23 H 7412440513) GLUCOSE (test code = 156 mg/dL 70-110 H 0077518303) CREATININE (test code = 3.53 mg/dL 0.50-1.04 H 7995483001) TOTAL BILI (test code = 0.4 mg/dL 0.1-1.0 7848701000) CALCIUM (test code = 7.7 mg/dL 8.6-10.6 L 0991742972) T PROTEIN (test code = 6.5 g/dL 6.3-8.2 2042232120) ALBUMIN (test code = 3.2 g/dL 3.5-5.0 L 7741763893) ALK PHOS (test code = 137 U/L 34-122 H 4299411484) ALTv (test code = 187 U/L 5-35 H 1742-6) AST(SGOT) (test code = 143 U/L 13-40 H 0943787906) eGFR (test code = mL/min/1.73m2 7333001840) IDNIRA (test code = INDIRA) Association of Glomerular [...] tests). Lab Interpretation Abnormal (test code = 57181-2) [facility]viewABORH Confirmation (Lab Only)2021-04-30 13:54:34 Test Item Value Reference Range Interpretation Comments ABO & RH (test code O Positive Performe d at [facility] = 20) Laboratory Serv [facility] [place] [phone] Free: [phone] A No. [id number] [facility]viewTROPONIN [id number] 13:04:30 Test Item Value Reference Interpretation Comments Range TROPONIN I (test 0.116 ng/mL See_Comment H [Automated code = 7975168661) message] The system which generated this result [...] biotin. Lab Interpretation Abnormal (test code = 03943-9) [facility]viewN-TERMINAL [id number] 13:01:29 Test Item Value Reference Range Interpretation Comments NT-proBNP (test code 73774 pg/mL See_Comment H [Autom ated = 2890405801) message] The system which generated this result transmitted reference range : <=125. The reference range was not used to interpret this result as normal/abnormal . INDIRA (test code = INDIRA) Biotin has been reported to cause a negative bias, interpret results relative to patient's use of biotin. Lab Interpretation Abnormal (test code = 13988-7) [facility] - ONCE [id number] 13:00:01 Test Item Value Reference Range Interpretation Comments ABO & RH (test code O Positive Performe d at [facility] = 20) Laboratory Serv [facility] [address] [place] [address] Free: [phone] A No. [id number] IAT (test code = Negative Performed a t [facility] 1185) Laboratory Serv [facility] [address] [place], [place] [address]Toll Free: [phone] A No. [id number] [facility] WITH [id number] 12:54:12 Test Item Value Reference Range Interpretation Comments WBC (test code = See_Comment [Automated 2790-2) message] The sy stem which generated this result transmitted reference range : 4.30 - 11.10 10*3/?L. The reference range was not used to interpret this result as normal/abnormal . RBC (test code = See_Comment L [Automated 109-8) message] The sy stem which [...] RDW-SD (test code = 48.7 fL 39.0-49.9 93322-9) RDW-CV (test code = 14.6 % 12.0-15.5 788-0) PLT (test code = See_Comment [Automated 777-3) message] The sy stem which generated this result transmitted reference range : 166 - 358 10*3/ ?L. The reference r lucille was not used to interpret this result as normal/abnormal . MPV (test code = 12.4 fL 9.5-12.9 79573-4) NRBC/100 WBC (test See_Comment [Automat ed code = 8465121651) message] The system which generated this result transmitted reference range : 0.0 - 10.0 /100 WBCs. The refer ence range was not u sed to interpret th is result as normal/abnormal . NRBC x10^3 (test code See_Comment [Auto mated = 8153586444) message] The s ystem which generated this result transmitted reference range : 10*3/?L. The reference range was not used to interpret this result as normal/abnormal . GRAN MAT (NEUT) % 85.2 % (test code = 770-8) IMM GRAN % (test code 1.00 % = 6849024474) LYMPH % (test code = 8.5 % 736-9) MONO % (test code = 4.6 % 5905-5) EOS % (test code = 0.5 % 713-8) BASO % (test code = 0.2 % 706-2) GRAN MAT x10^3(ANC) 7.02 10*3/uL 1.88-7.09 (test code = 5975261318) IMM GRAN x10^3 (test 0.08 10*3/uL 0.00-0.06 H code = 9700432083) LYMPH x10^3 (test code 0.70 10*3/uL 1.32-3.29 L = 731-0) MONO x10^3 (test code 0.38 10*3/uL 0.33-0.92 = 742-7) EOS x10^3 (test code = 0.04 10*3/uL 0.03-0.39 711-2) BASO x10^3 (test code <0.03 0.01-0.07 = 704-7) Lab Interpretation Abnormal (test code = 06964-1) [facility] 12:52:27 Test Item Value Reference Range Interpretation Comments LIPASE (test code = 2369105002) 566 U/L 0-220 H Lab Interpretation (test code = Abnormal 34325-1) [facility] THRMPLAS [id number] 12:41:03 Test Item Value Reference Range Interpretation Comments APTT Patient (test See_Comment [Automat ed code = 3173-2) message] The system which generated this result transmitted reference range : 23 - 38 Seconds . The reference range was not used to interpr et this result as normal/abnormal . INDIRA (test code = INDIRA) The [facility] patient population mean normal value for aPTT is 30 seconds. Lab Interpretation Normal (test code = 59208-9) [facility]viewPROTHROMBIN TIME / [id number] 12:35:26 Test Item Value Reference Range Interpretation [...] tions. Lab Interpretation (test Normal code = 99136-1) [facility]"
[2023-01-28 02:27] LABS: Absolute Lymphocytes (CBC) 1.2 K/uL (0.7-4.9); Hematocrit 31.3 % (36.0-45.0); Lymphocytes % 16.1 % (15.3-44.8); MCV 99.1 fL (80-100); MPV 8.2 fL (7.6-11.3); Platelets 133 thou/uL (152-406); RBC Red Blood Cell Count 3.16 M/uL (3.86-4.86)
[2023-01-28 02:31] LABS: Protime INR 1.08
[2023-01-28] MEDS ORDERED: MORPHINE 4 MG/ML SYR ONE (02:39)
[2023-01-28] MEDS ORDERED: ONDANSETRON 4 MG/2 ML VIAL ONE (02:39)
[2023-01-28 03:09] LABS: ALT/SGPT 13 U/L (13-56); AST/SGOT 8 U/L (15-37); Albumin 3.3 g/dL (3.4-5.0); Alkaline Phosphatase 141 U/L (45-117); BUN Blood Urea Nitrogen 48 mg/dL (7-18); Bicarbonate 23 mEq/L (21-32); Bilirubin Direct < 0.1 mg/dL (0-0.2); Bilirubin Indirect, Calculated ND mg/dL (0.2-0.8); Bilirubin Total 0.3 mg/dL (0.2-1.0); Glomerular Filtration Rate 8 ml/min (=/>90); Glucose Level 263 mg/dL (74-106); Magnesium 2.4 mg/dL (1.6-2.4); NT PRO-BNP 15639 pg/mL (<125); Potassium 4.7 mEq/L (3.5-5.1); Protein, Total 6.9 g/dL (6.4-8.2); Sodium Level 132 mEq/L (136-145); Troponin High Sensitivity 22.1 pg/mL (<58.9)
[2023-01-28] MEDS ORDERED: HYDROCODONE/APAP 10/325 TAB ONE (04:26)
[2023-01-28] MEDS ORDERED: PROMETHAZINE 25 MG TABLET ONE (04:26)
--- NOTE | 2023-01-28 05:03 | ER ---
Nurse's Notes [facility] Name: Magalis Haywood Age: 62 yrs Sex: Female : 1960 Arrival Date: 01/28/2023 Time: 01:52 Bed 5 Private MD: Diagnosis: Other acute postprocedural pain;Acute postoperative pain of the left arm status post left basilic vein transposition stage II, acute postoperative incisional pain of the left Presentation: 01/28 02:04 Chief complaint: Patient states: LUE FISTULA HEMATOMA AFTER 2200. Coronavirus screen: bp At this time, the client does not indicate any symptoms associated with coronavirus-19. Ebola Screen: No symptoms or risks identified at this time. Initial Sepsis Screen: Does the patient meet any 2 criteria? No. Patient's initial sepsis screen is negative. Does the patient have a suspected source of infection? No. Patient's initial sepsis screen is negative. Risk Assessment: Do you want to hurt yourself or someone else? Patient reports no desire to harm self or others. Onset of symptoms was January 27, 2023 at 22:00. 02:04 Method Of Arrival: Ambulatory bp 02:04 Acuity: MEI 3 bp 02:26 Chief complaint: Patient states: had LUE fistula created today and has been having cm10 increased pain. Triage Assessment: 02:06 General: Appears uncomfortable, Behavior is calm, cooperative, appropriate for age. bp Pain: Complains of pain in left bicep. Musculoskeletal: Swelling present in left bicep. Historical: - Allergies: 02:06 No Known Allergies; bp - Home Meds: 02:06 aspirin 81 mg Oral tablet,chewable [Active]; acetaminophen-codeine 300-30 mg Oral bp tablet [Active]; Lasix 80 mg Oral tablet 1 tab daily [Active]; carvedilol 25 mg oral tablet 1 tab 2 times per day [Active]; senna 8.6 mg oral capsule 1 cap 2 times per day [Active]; isosorbide mononitrate 30 mg Oral Tablet, Extended Release 24 hr [Active]; losartan 25 mg oral tablet 2 tabs daily [Active]; - PMHx: 02:06 Hypertensive disorder; End stage renal disease; bp - Immunization history:: Adult Immunizations up to date. - Social history:: Smoking status: Patient denies any tobacco usage or history of. - Family history:: not pertinent. Screenin:13 [facility] ED Fall Risk Assessment (Adult) History of falling in the last 3 months, bp including since admission No falls in past 3 months (0 pts). Abuse screen: Denies threats or abuse. Denies injuries from another. Nutritional screening: No deficits noted. Tuberculosis screening: No symptoms or risk factors identified. Assessment: 02:13 General: SEE TRIAGE NOTE. bp 02:14 Cardiovascular: Pulses are 1+ in left arm. bp 03:40 Reassessment: Patient appears in no apparent distress at this time. Patient and/or jb4 family updated on plan of care and expected duration. Pain level reassessed. Patient is alert, oriented x 3, equal unlabored respirations, skin warm/dry/pink. 05:15 Reassessment: Patient appears in no apparent distress at this time. Patient states kl feeling better. Patient states symptoms have improved. Vital Signs: 02:04 BP 159 / 56; Pulse 63; Resp 16; Temp 98; Pulse Ox 99% ; bp 03:00 BP 147 / 51; Pulse 62; Resp 16; Pulse Ox 97% on R/A; jb4 04:13 Weight 80.29 kg (R); kl 05:16 BP 160 / 64; Pulse 80; Resp 16; Pulse Ox 98% on R/A; kl ED Course: 01:56 Patient arrived in ED. ag3 01:59 Gilbert Adame, RN is Primary Nurse. jb4 02:03 Mann Finney MD is Attending Physician. sp4 02:06 Triage completed. bp 02:06 Arm band placed on. bp 02:13 Patient has correct armband on for positive identification. Bed in low position. Call bp light in reach. Side rails up X2. Adult w/ patient. 03:08 UPPER EXTREMITY VENOUS UNILATE In Process Unspecified. EDMS 05:16 No provider procedures requiring assistance completed. IV discontinued, intact, kl bleeding controlled, No redness/swelling at site. Pressure dressing applied. Administered Medications: 02:36 Drug: morphine IVP or IV 4 mg IVP once over 4 mins Route: IVP; Infused Over: 4 mins; jb4 Site: right forearm; 02:36 Drug: Ondansetron IVP 4 mg IVP once; over 2 minutes Route: IVP; Site: right forearm; jb4 04:17 Drug: [place] PO 10 mg-325 mg 1 tabs PO once Route: PO; jb4 04:17 Drug: Promethazine PO 25 mg PO once Route: PO; jb4 Medication: 02:13 VIS not applicable for this client. bp Outcome: 05:02 Discharge ordered by MD. gomez 05:16 Discharged to home ambulatory, with family, 05:16 Condition: improved 05:16 Discharge instructions given to patient, family, Instructed on discharge instructions, follow up and referral plans. medication usage, Demonstrated understanding of instructions, follow-up care, medications, Prescriptions given X 2, 05:16 Patient left the ED. kl Signatures: Dispatcher [employer] EDMS Cathie Wagner RN RN kl Bryson, James, RN RN jb4 Peltier, Brian, RN RN bp Gomez, Alice ag3 Potepalov, Sergey, MD MD sp4 Inés Urban RN RN cm10 Corrections: (The following items were deleted from the chart) 02:12 02:06 Allergies: No Known Allergies; bp bp
--- NOTE | 2023-01-28 05:03 | EDPHYS ---
Physician Documentation [facility] Name: Magalis Haywood Age: 62 yrs Sex: Female : 1960 Arrival Date: 01/28/2023 Time: 01:52 Bed 5 Private MD: ED Physician Mann Finney HPI: 01/28 02:03 This 62 yrs old Female presents to ER via Unassigned with complaints of Arm sp4 Pain. 04:36 Patient presents with left arm postoperative pain after left upper extremity basilic sp4 vein transposition stage II to create dialysis fistula. Patient had her surgery on 01/27/2023 at the [facility] [place] [facility] [place] [address]. with Surgeon Earnest Eubanks MD . Patient was discharged home after surgery and prescribed acetaminophen with codeine and cephalexin. Acetaminophen with codeine 300 mg - 30 mg tablet was prescribed to be taken 1 tablet every 6 hours as needed for pain total quantity of 28 tabs. After discharge home patient states that pain has intensified in the left arm around the surgery site and acetaminophen with codeine does not help. Patient and her have contacted their surgeon who informed patient that at this time if pain continues to bother them they should come to the nearest emergency department. Patient is here to be evaluated for worsening pain in the left arm at the side off newly created dialysis fistula. . Historical: - Allergies: 02:06 No Known Allergies; bp - Home Meds: 02:06 aspirin 81 mg Oral tablet,chewable [Active]; acetaminophen-codeine 300-30 mg Oral bp tablet [Active]; Lasix 80 mg Oral tablet 1 tab daily [Active]; carvedilol 25 mg oral tablet 1 tab 2 times per day [Active]; senna 8.6 mg oral capsule 1 cap 2 times per day [Active]; isosorbide mononitrate 30 mg Oral Tablet, Extended Release 24 hr [Active]; losartan 25 mg oral tablet 2 tabs daily [Active]; - PMHx: 02:06 Hypertensive disorder; End stage renal disease; bp - Immunization history:: Adult Immunizations up to date. - Social history:: Smoking status: Patient denies any tobacco usage or history of. - Family history:: not pertinent. ROS: 04:36 Constitutional: Negative for fever, chills, and weight loss, Cardiovascular: Negative sp4 for chest pain, palpitations, and edema, positive for left upper arm pain at the site of recent surgery at left upper extremity basilic vein transposition site 04:36 All other systems are negative, Exam: 04:36 Constitutional: This is a well developed, well nourished patient who is awake, alert, sp4 and in no acute distress. Head/Face: Normocephalic, atraumatic. Eyes: Pupils equal round and reactive to light, extra-ocular motions intact. Lids and lashes normal. Conjunctiva and sclera are not injected. Cornea within normal limits. Periorbital areas with no swelling, redness, or edema. ENT: Nares patent. No nasal discharge, no septal abnormalities noted. Tympanic membranes are normal and external auditory canals are clear. Oropharynx with no redness, swelling, or masses, exudates, or evidence of obstruction, uvula midline. Mucous membranes moist. Neck: Trachea midline, no thyromegaly or masses palpated, and no cervical lymphadenopathy. Supple, full range of motion without nuchal rigidity, or vertebral point tenderness. Chest/axilla: Normal chest wall appearance and motion. Nontender with no deformity. No lesions are appreciated. Cardiovascular: Regular rate and rhythm with a normal S1 and S2. No gallops, murmurs, or rubs. Normal PMI, no JVD. No pulse deficits. Respiratory: Lungs have equal breath sounds bilaterally, clear to auscultation and percussion. No rales, rhonchi or wheezes noted. No increased work of breathing, no retractions or nasal flaring. Abdomen/GI: Soft, non-tender, with normal bowel sounds. No distension or tympany. No guarding or rebound. No evidence of tenderness throughout. Back: No spinal tenderness. No costovertebral tenderness. Skin: Warm, dry with normal turgor. Normal color with no rashes, no lesions, and no evidence of cellulitis. MS/ Extremity: Pulses equal, no cyanosis. Neurovascular intact. Full, normal range of motion. Left upper arm medial side reveals postoperative incision that is covered with Dermabond. Postoperative incision appears clean dry and intact, there is no significant hematoma, no mass, no pulsating mass, no sign off postop bleeding, preserved distal arterial pulses in the radial ulnar locations. Neuro: Awake and alert, GCS 15, oriented to person, place, time, and situation. Cranial nerves II-XII grossly intact. Motor strength 5/5 in all extremities. Sensory grossly intact. Psych: Awake, alert, with orientation to person, place and time. Behavior, mood, and affect are within normal limits Vital Signs: 02:04 BP 159 / 56; Pulse 63; Resp 16; Temp 98; Pulse Ox 99% ; bp 03:00 BP 147 / 51; Pulse 62; Resp 16; Pulse Ox 97% on R/A; jb4 04:13 Weight 80.29 kg (R); kl 05:16 BP 160 / 64; Pulse 80; Resp 16; Pulse Ox 98% on R/A; kl MDM: 02:05 Patient medically screened. sp4 03:55 ED course: US - TECHNIQUE: Real-time Duplex ultrasound of the left upper extremity sp4 veins with 2-D rico scale, color Doppler flow, and spectral waveform analysis. COMPARISON: None available for comparison. FINDINGS: Left deep veins: The internal jugular, subclavian, axillary, and brachial veins are patent without thrombus. Normal compressibility, augmentation response, and Doppler waveforms. Ulnar and radial veins are patent. Patent vascular fistula Left superficial veins: The visualized basilic and cephalic veins are patent without thrombus. IMPRESSION: No evidence of deep venous thrombosis in the left upper extremity. Patent fistula. . 04:49 Differential diagnosis: contusion, Postoperative hematoma, postoperative blood clot, sp4 postoperative pain secondary to tissue dissection, postoperative bleed. Data reviewed: vital signs, nurses notes, old medical records, lab test result(s), radiologic studies, ultrasound. Consideration of Admission/Observation Escalation of care including admission/observation considered. ED course: Patient was given IV morphine 4 mg and also p.o. hydrocodone 10 mg. Will reassess after pain control is over, ultrasound reveals patent fistula also reveals no DVT no other significant findings such as hematoma. Distal pulses preserved in the left arm. We have contacted solution spec [employer] for Dr. Earnest Eubanks who reports that patients are usually prescribed Tramadol PO or Tylenol 3, but no medications stronger than that. We will try patient on p.o. tramadol and Phenergan every 6 hours as an alternative to Tylenol 3. Will advised to contact Dr. Earnest Eubanks at [phone] or at [phone] for additional evaluation. . 01/28 02:06 Order name: Basic Metabolic Panel; Complete Time: 03:58 sp4 01/28 02:06 Order name: CBC with Diff; Complete Time: 03:58 sp4 01/28 02:06 Order name: LFT's; Complete Time: 03:58 sp4 01/28 02:06 Order name: Magnesium; Complete Time: 03:58 sp4 01/28 02:06 Order name: NT PRO-BNP; Complete Time: 03:58 sp4 01/28 02:06 Order name: PT-INR; Complete Time: 03:58 sp4 01/28 02:06 Order name: Troponin HS; Complete Time: 03:58 sp4 01/28 03:05 Order name: UPPER EXTREMITY VENOUS UNILATE EDMS 01/28 02:06 Order name: Cardiac monitoring; Complete Time: 02:15 sp4 01/28 02:06 Order name: IV Saline Lock; Complete Time: 02:22 sp4 01/28 02:06 Order name: Labs collected and sent; Complete Time: 02:22 sp4 01/28 02:06 Order name: O2 Per Protocol; Complete Time: 02:15 sp4 01/28 02:06 Order name: O2 Sat Monitoring; Complete Time: 02:15 sp4 Administered Medications: 02:36 Drug: morphine IVP or IV 4 mg IVP once over 4 mins Route: IVP; Infused Over: 4 mins; jb4 Site: right forearm; 02:36 Drug: Ondansetron IVP 4 mg IVP once; over 2 minutes Route: IVP; Site: right forearm; jb4 04:17 Drug: [place] PO 10 mg-325 mg 1 tabs PO once Route: PO; jb4 04:17 Drug: Promethazine PO 25 mg PO once Route: PO; jb4 Disposition Summary: 01/28/23 05:02 Discharge Ordered Problem: new sp4 Symptoms: have improved sp4 Condition: Stable sp4 Diagnosis - Other acute postprocedural pain sp4 - Acute postoperative pain of the left arm status post left basilic vein sp4 transposition stage II, acute postoperative incisional pain of the left Followup: sp4 - With: Private Physician - When: 7 - 10 days - Reason: Recheck today's complaints Discharge Instructions: - Discharge Summary Sheet sp4 - Pain Relief Before and After Surgery sp4 Forms: - Patient Portal Instructions sp4 Prescriptions: - tramadol 50 mg Oral tablet - take 1 tablet ORAL route every 6 hours PRN pain; 28 tablet; Refills: 0, Product sp4 Selection Permitted - promethazine 25 mg Oral tablet - take 1 tablet ORAL route every 6 hours As needed; 28 tablet; Refills: 0, sp4 Product Selection Permitted Signatures: Dispatcher [employer] EDGilbert Jensen RN RN jb4 Parmjit Grande RN RN bp Mann Finney MD MD sp4 Corrections: (The following items were deleted from the chart) 02:12 02:06 Allergies: No Known Allergies; bp bp 02:22 02:06 EKG - Nurse/Tech ordered. sp4 sp4 03:05 02:23 Extrmty Nonvasular Limited+US.RAD.BRZ ordered. EDMS EDMS
[2023-01-28 05:41] VITALS: TEMP 98
[2023-01-28 05:44] VITALS: BP 160/64; O2SAT 98
--- NOTE | 2023-01-28 15:36 | RAD REPORT ---
EXAM DESCRIPTION: US - UPPER EXTREMITY VENOUS UNILATE - 01/28/2023 3:06 am CLINICAL HISTORY: Left arm pain after vascular fistula TECHNIQUE: Real-time Duplex ultrasound of the left upper extremity veins with 2-D rico scale, color Doppler flow, and spectral waveform analysis. COMPARISON: None available for comparison. FINDINGS: Left deep veins: The internal jugular, subclavian, axillary, and brachial veins are patent without thrombus. Normal compressibility, augmentation response, and Doppler waveforms. Ulnar and radial veins are patent. Patent vascular fistula Left superficial veins: The visualized basilic and cephalic veins are patent without thrombus. IMPRESSION: No evidence of deep venous thrombosis in the left upper extremity. Patent fistula. Electronically signed by: Sigifredo Castanon MD 01/28/2023 3:30 AM CDT Due to temporary technical issues with the PACS/Fluency reporting system, reports are being signed by the in house radiologists without review as a courtesy to insure prompt reporting. The interpreting radiologist is fully responsible for the content of the report.
== END 2023-01-28 05:16 | disposition home or self-care (01) ==
LOC: ER 01:52
DX: G89.18 Other acute postprocedural pain (principal); Z98.890 Other specified postprocedural states; I12.0 Hypertensive chronic kidney disease with stage 5 chronic kidney disease or end stage renal disease; N18.6 End stage renal disease; Z99.2 Dependence on renal dialysis; Z79.82 Long term (current) use of aspirin
CPT/HCPCS: 85025; 80048; 36415; 83735; 85610; 80076; 84484; 83880; 93971; 96375; 96374; 99284; Q0169; J2405

== ENCOUNTER 2023-11-23 14:24 | Emergency (ER) | payer OTHER ==
--- OUTSIDE RECORDS SUMMARY | 2023-11-23 14:36 | XMS REPORT | Continuity of Care Document ---
Author Name Unknown Address [address] [facility] [address] [place] [address] [facility] thconnect Address [address] [facility] [address] [place] [address] Care Team Providers Care Beam House Inspector Name Role Phone Winifred Magdaleno Primary Care Physician [phone] Juana Cosby MD Attending Clinician [phone] JUANA COSBY Attending Clinician Unavailbella Padilla MD, Stephenie Hendricks N Attending Clinician [phone] Doctor Unassigned, Verona Walk Attending Clinician U Lisette Floyd MD Attending Clinici an LISETTE ENAMORADO Attending Clinician Unavailable Teodoro RIOJAS, Annabel Merrill Attending Clinician Unavailab Lila ABEL, Rj Holloway Attending Clinician [phone] Arash ABEL, Hillary Attending Clinician [phone] Nelly Schultz MD Attending Clinician [phone] Jeffry ABEL, Melly Attending Clinician + [phone] Sonia Solorzano Attending Clinician [phone] CANDY NILESCORINE Attending Clinician Unavailable Link ABEL, Julianna Ayala Attending Clinician + [phone] Po, [facility] Main Attending Clinician Abundio Bray MD, Rhoda Attending Clinician [phone] RHODA BRAY Attending Clinician UnavailRemy Muller MD Attending Clinician [phone] Aby Lennon DO Attending Clinician [phone] ABY LENNON Attending Clinician Unavailable LISETTE ENAMORADO Admitting Clinician Unavailable Lisette Enamorado MD Admitting Clinici an Aby Lennon DO Admitting Clinician [phone] ABY LENNON Admitting Clinician Unavailable Payers Payer Name Policy Type Policy Number Effective Date Expirati on Date Source [employer] [place] [id number] 2023 00:00:00 Problems Condition Name Condition Details Condition Category Status Onset Date Resolution Date Last Treatment Date Treating Clinician Comments Source Shortness of breath Shortness of breath Disease Active 05-01 00:00: 00 [facility] Refractory angina pectoris Refractory angina pectoris Disease Active 05-01 00:00: 00 Overview: Formattin g of this note might be different from the original. Added automatic ally from request for surgery [id number] [facility] Stage 4 chronic kidney disease Stage 4 chronic kidney disease Disease Active 05-01 00:00: 00 [facility] Essential hypertensi on Essential hypertensi on Disease Active 05-01 00:00: 00 [facility] Acute on chronic systolic and diastolic heart failure, NYHA class 3 Acute on chronic systolic and diastolic heart failure, NYHA class 3 Disease Active 05-01 00:00: 00 [facility] Dyslipidem ia Dyslipidem ia Disease Active 05-01 00:00: 00 [facility] Type 2 diabetes mellitus with other specified complicati on Type 2 diabetes mellitus with other specified complicati on Disease Active 05-01 00:00: 00 [facility] Elevated brain natriureti c peptide (BNP) level Elevated brain natriureti c peptide (BNP) level Disease Active 04-30 00:00: 00 [facility] COVID-19 COVID-19 Disease Active 04-30 00:00: 00 [facility] Obesity (BMI 30-39.9) Obesity (BMI 30-39.9) Disease Active 04-30 00:00: 00 [facility] LUGO (dyspnea on exertion) LUGO (dyspnea on exertion) Disease Active 04-30 00:00: 00 [facility] Elevated troponin I level Elevated troponin I level Disease Active 04-30 00:00: 00 [facility] Elevated brain natriureti c peptide (BNP) level Elevated brain natriureti c peptide (BNP) level Disease Active 04-30 00:00: 00 [facility] Allergies, Adverse Reactions, Alerts Allergy Name Allergy Type Status Severity Reaction(s) Onset Date Inactive Date Treating Clinician Comments Source NO KNOWN ALLERGIE S Drug Class Active [facility] Social History Social Habit Start Date Stop Date Quantity Comments Source Gender identity [facility] History SDOH Social Connections Get Together [facility] History SDOH Social Connections Muslim [facility] History SDOH Social Connections Membership [facility] History SDOH Social Connections Meetings [facility] History of Social function 2022-11-30 00:00:00 2022-11-30 00:00:00 [facility] Exposure to SARS-CoV-2 (event) 2022-05-31 00:00:00 2022-06-10 09:37:00 Not sure [facility] Alcoholic beverage intake 2022-05-25 00:00:00 2022-05-25 00:00:00 Ex-drinker (finding) [facility] Alcohol intake 2022-05-25 00:00:00 2022-05-25 00:00:00 Ex-drinker (finding) [facility] History SDOH Social Connections Living 2022-05-25 00:00:00 2022-05-25 00:00:00 3 [facility] History SDOH Financial 2022-05-25 00:00:00 2022-05-25 00:00:00 1 [facility] History SDOH Food Worry 2022-05-25 00:00:00 2022-05-25 00:00:00 3 [facility] History SDOH Food Scarcity 2022-05-25 00:00:00 2022-05-25 00:00:00 1 [facility] History SDOH Transport Med 2022-05-25 00:00:00 2022-05-25 00:00:00 1 [facility] History SDOH Transport Non-Med 2022-05-25 00:00:00 2022-05-25 00:00:00 1 [facility] History SDOH Alcohol Frequency 2022-05-04 00:00:00 2022-05-04 00:00:00 1 [facility] History SDOH Alcohol Std Drinks 2022-05-04 00:00:00 2022-05-04 00:00:00 0 [facility] History SDOH Alcohol Binge 2022-05-04 00:00:00 2022-05-04 00:00:00 1 [facility] History SDOH Social Connections Phone 2022-05-04 00:00:00 2022-05-04 00:00:00 5 [facility] History SDOH Physical Activity DPW 2022-05-04 00:00:00 2022-05-04 00:00:00 0 [facility] History SDOH Physical Activity MPS 2022-05-04 00:00:00 2022-05-04 00:00:00 0 [facility] Sex assigned at 1960 00:00:00 1960 00:00:00 [facility] Smoking Status Start Date Stop Date Source Never smoked tobacco [facility] Medications Ordered Medication Name Filled Medication Name Start Date Stop Date Current Medication? Ordering Clinician Indication Dosage Frequency Signature (SIG) Comments Components Source Lantus U-100 Insulin 100 unit/mL subcutaneou s solution 09-13 00:00: 00 Yes unit/mL Quinn Schroeder pantoprazol e 40 mg tablet,kaykay yed release 0 09-13 00:00: 00 Yes 1mg Quinn Schroeder isosorbide mononitrate ER 30 mg tablet,exte nded release 24 hr 0 09-13 00:00: 00 Yes 1mg Quinn Schroeder furosemide 80 mg tablet 0 09-13 00:00: 00 Yes 1mg Quinn Schroeder losartan 25 mg tablet 0 09-13 00:00: 00 Yes 2mg Quinn Schroeder carvedilol 25 mg tablet 0 09-13 00:00: 00 Yes 1mg Quinn Schroeder losartan 25 mg tablet 0 08-01 00:00: 00 Yes 2mg Quinn Schroeder pantoprazol e 40 mg tablet,kaykay yed release 08-01 00:00: 00 Yes 1mg Quinn Schroeder isosorbide mononitrate ER 30 mg tablet,exte nded release 24 hr 0 - 00:00: 00 Yes 1mg Quinn Schroeder furosemide 80 mg tablet 0 - 00:00: 00 Yes 1mg Quinn Schroeder carvedilol 25 mg tablet 0 - 00:00: 00 Yes 1mg Quinn Schroeder furosemide 80 mg tablet 0 - 00:00: 00 Yes 1mg Quinn Schroeder pantoprazol e 40 mg tablet,kaykay yed release 0 - 00:00: 00 Yes 1mg Quinn Schroeder losartan 25 mg tablet 0 - 00:00: 00 Yes 2mg Quinn Schroeder carvedilol 25 mg tablet 0 - 00:00: 00 Yes 1mg Quinn Schroeder Lantus U-100 Insulin 100 unit/mL subcutaneou s solution - 00:00: 00 Yes unit/mL Quinn Schroeder furosemide 80 mg tablet 0 - 00:00: 00 Yes 1mg Quinn Schroeder isosorbide mononitrate ER 30 mg tablet,exte nded release 24 hr 0 - 00:00: 00 Yes 1mg Quinn Schroeder APPLY SPARINGLY TO AFFECTED AREA(S) TWICE DAILY 06-14 00:00: 00 09-06 00:00 :00 No 2 Quinn Schroeder TAKE 1 TABLET TWICE DAILY WITH FOOD. 06-14 00:00: 00 09-06 00:00 :00 No [id number] Quinn Schroeder TAKE 1 TABLET DAILY. 05-11 00:00: 00 Yes 80 Quinn Schroeder INJECT 10 UNITS SUBCUTANEOU SLY ONCE A DAY 05-11 00:00: [address] 1 TABLET UNDER THE TONGUE EVERY 5 MINUTES UP TO 3 DOSES NEEDED FOR CHEST PAIN. 2022-04 00:00: 00 09-06 00:00 :00 No 4 Quinn Schroeder TAKE 1 TABLET BY MOUTH DAILY 2022-04 00:00: 00 09-06 00:00 :00 No 40 Quinn Schroeder INJECT 10 UNITS SC 2022-04 00:00: 00 Yes 100 Quinn Schroeder pantoprazol e 40 mg EC tablet 2022-04 00:00: 00 Yes [id number] 9103 40mg Take 1 tablet by mouth daily. [facility] carvediloL 25 mg tablet 2022-04 00:00: 00 Yes [id number] 9103 25mg Take 1 tablet by mouth 2 (two) times daily with meals. [facility] TAKE 1 TABLET BY MOUTH EVERY 6 HOURS NEEDED FOR PAIN 2022-04 00:00: 00 Yes Quinn Schroeder TAKE 1 TABLET BY MOUTH EVERY 6 HOURS NEEDED FOR NAUSEA 2022-04 00:00: 00 Yes Quinn Schroeder TAKE ONE (1) CAPSULE(S) BY MOUTH EVERY TWELVE HOURS. 2022-04 00:00: 00 Yes Quinn Schroeder TAKE 2 TABLETS ONCE A DAY BY MOUTH 12-30 00:00: 00 09-06 00:00 :00 No 25 Quinn Schroeder TAKE 1 TABLET DAILY. 12-30 00:00: 00 09-06 00:00 :00 No 30 Quinn Schroeder TAKE 1 TABLET TWICE DAILY. 12-30 00:00: 00 09-06 00:00 :00 No 25 Quinn Schroeder TAKE 1 TABLET DAILY. 12-30 00:00: 00 09-06 00:00 :00 No 80 Quinn Schroeder TAKE 1 TABLET BY MOUTH DAILY 12-30 00:00: 00 09-06 00:00 :[address] 1 TABLET UNDER THE TONGUE EVERY 5 MINUTES UP TO 3 DOSES NEEDED FOR CHEST PAIN. 12-30 00:00: 00 09-06 00:00 :00 No 4 Quinn Schroeder TAKE 1 TABLET DAILY. 12-07 00:00: 00 09-06 00:00 :00 No 10 Quinn Schroeder pantoprazol e 40 mg EC tablet 11-30 00:00: 00 Yes [id number] 9103 40mg Take 1 tablet by mouth daily. [facility] losartan 25 mg tablet 11-30 00:00: 00 Yes [id number] 50mg Take 2 tablets by mouth daily. [facility] furosemide 80 mg tablet 11-30 00:00: 00 Yes [id number] [id number] 80mg Take 1 tablet by mouth every morning and evening. [facility] carvediloL 25 mg tablet 11-30 00:00: 00 Yes [id number] [id number] 25mg Take 1 tablet by mouth 2 (two) times daily with meals. [facility] isosorbide mononitrate 30 mg 24 hr tablet 11-30 00:00: 00 Yes [id number] 9103 30mg Take 1 tablet by mouth daily. [facility] aspirin 81 mg chewable tablet 11-30 00:00: 00 Yes [id number] 9103 81mg Take 1 tablet by mouth daily. [facility] APAP/CODEIN E #3 11-09 00:00: 00 Yes Quinn Schroeder CEPHALEXIN 500MG 11-09 00:00: 00 Yes Quinn Schroeder ISOSORB MONO 30MG ER 530 00:00: 00 09-06 00:00 :00 No [id number] Quinn Schroeder SEVELAM CARB 800MG RV 09-11 00:00: 00 Yes [id number] Quinn Schroeder TAKE 1 TABLET TWICE DAILY. 09-06 00:00: 00 09-06 00:00 :00 No 25 Quinn Schroeder TAKE 1 TABLET EVERY 8 HOURS NEEDED FOR NAUSEA AND VOMITING. 09-06 00:00: 00 09-06 00:00 :00 No 8 Quinn Schroeder INJECT 22 UNITS SC EVERY DAY 09-05 00:00: 00 09-06 00:00 :00 No 100 Quinn Schroeder 20 UNITS DAILY 09-03 00:00: 00 Yes 100 Quinn Schroeder 20 UNITS DAILY 09-01 00:00: 00 09-06 00:00 :00 No 100 Quinn Schroeder TAKE 1 TABLET DAILY. 09-01 00:00: 00 09-06 00:00 :00 No 40 Quinn Schroeder PANTOPRAZOL E 40MG DR 08-28 00:00: 00 09-06 00:00 :00 No [id number] Quinn Schroeder CARVEDILOL 25MG 08-21 00:00: 00 09-06 00:00 :00 No Quinn Schroeder FUROSEMIDE 80MG 08-21 00:00: 00 09-06 00:00 :00 No Quinn Schroeder carvediloL 25 mg tablet 07-22 00:00: 00 Yes [id number] 25mg Take 1 tablet by mouth 2 (two) times daily with meals. [facility] furosemide 80 mg tablet 30 00:00: 00 Yes [id number] 9103 80mg Take 1 tablet by mouth every morning and evening. [facility] isosorbide mononitrate 30 mg 24 hr tablet 30 00:00: 00 Yes [id number] 9103 30mg Take 1 tablet by mouth daily. [facility] pantoprazol e 40 mg EC tablet 07-22 00:00: 00 Yes [id number] 9103 40mg Take 1 tablet by mouth daily. [facility] aspirin 81 mg chewable tablet 07-22 00:00: 00 Yes [id number] 9103 81mg Take 1 tablet by mouth daily. [facility] PANTOPRAZOL E 40MG DR 07-22 00:00: 00 09-06 00:00 :00 No Quinn Schroeder TAKE 1 TABLET BY MOUTH ONCE DAILY 07-22 00:00: 00 09-06 00:00 :00 No Quinn Schroeder FUROSEMIDE 80MG 07-22 00:00: 00 09-06 00:00 :00 No [id number] Quinn Schroeder TAKE 1 TABLET BY MOUTH THREE TIMES DAILY BEFORE MEAL(S) 06-30 00:00: 00 Yes Quinn Schroeder losartan 25 mg tablet 06-25 00:00: 00 Yes [id number] 50mg Take 2 tablets by mouth daily. [facility] insulin glargine 100 unit/mL injection 05-27 00:00: 00 Yes [id number] 10U inject 10 Units under the skin every 24 (twenty-fo ur) hours. [facility] NaCl 0.9% (NS) injection 5 mL 05-26 22:30: 00 05-27 01:00 :00 No 5mL 5 mL, Slow IV Push, ONCE, 1 dose, On Tue05/26/22 at 1630, Routine [facility] heparin 1,000 unit/mL injection 2,000 Units 05-26 22:22: 20 Yes 2000U 2,000 Units, Slow IV Push, PRN - SEE INSTRUCTIO NS, Starting on Tue05/26/22 at 1622, Until Discontinu ed, Routine, dialysis catheter care [facility] insulin glargine (LANTUS U-100) injection 2 Units 05-26 14:00: 00 Yes 2U 2 Units, Subcutaneo us, Q24H, First dose on Tue05/26/22 at 0800, Until Discontinu ed, Routine [facility] losartan 25 mg tablet 05-26 00:00: 00 06-26 05:59 :00 No [id number] 75mg Take 3 tablets by mouth daily for 30 days. [facility] insulin lispro, human, (ADMELOG U-100 INSULIN LISPRO) 100 unit/mL injection 05-26 00:00: 00 06-26 05:59 :00 No [id number] 9103 5U inject 5 Units under the skin 3 (three) times daily before meals for 30 days. [facility] iron sucrose (VENOFER) 300 mg in NaCl 0.9% (NS) 250 mL infusion 05-25 18:15: 00 05-25 20:23 :00 No 300mg 300 mg, IV Infusion, ONCE, Administer over 1.5 Hours, On Tue05/25/22 at 1215, For 1 dose [facility] losartan (COZAAR) tablet 75 mg 05-25 15:00: 00 Yes 75mg 75 mg, Oral, DAILY, First dose (after last modificati on) on Tue05/25/22 at 0900, Until Discontinu ed, Routine [facility] sennosides- docusate sodium 8.6-50 mg per tablet 05-25 00:00: 00 06-25 05:59 :00 No [id number] 1{tbl} Take 1 tablet by mouth 2 (two) times daily as needed for Constipati on for up to 30 days. [facility] spironolact one 25 mg tablet 05-25 00:00: 00 06-25 05:59 :00 No [id number] 9103 12.5mg Take 0.5 tablets by mouth daily for 30 days. [facility] NaCl 0.9% (NS) injection 5 mL 05-24 19:00: 00 05-24 19:00 :00 No 5mL 5 mL, Slow IV Push, ONCE, 1 dose, On Tue05/24/22 at 1300, Routine [facility] heparin 1,000 unit/mL injection 2,000 Units 05-24 18:57: 56 Yes 1999U PRN - SEE INSTRUCTIO NS, Starting on Tue05/24/22 at 1257, Until Discontinu ed, Routine
For Priming of Ports:&nbs p; &n bsp; After initial saline flush, prime each port with heparin according to the priming volume listed on each catheter port for catheter lock.
[facility] NaCl 0.9% (NS) injection 5 mL 05-21 18:15: 00 05-21 18:34 :00 No 5mL 5 mL, Slow IV Push, ONCE, 1 dose, On Tue05/21/22 at 1215, Routine [facility] heparin 1,000 unit/mL injection 2,000 Units 05-21 18:08: 11 Yes 1999U PRN - SEE INSTRUCTIO NS, Starting on Tue05/21/22 at 1208, Until Discontinu ed, Routine
For Priming of Ports:&nbs p; &n bsp; After initial saline flush, prime each port with heparin according to the priming volume listed on each catheter port for catheter lock.
[facility] spironolact one (ALDACTONE) tablet 12.5 mg 05-20 15:00: 00 Yes 12.5mg 12.5 mg, Oral, DAILY, First dose on Tue05/20/22 at 0900, Until Discontinu ed, Routine [facility] losartan (COZAAR) tablet 50 mg 05-20 15:00: 00 05-24 17:52 :10 No 50mg 50 mg, Oral, DAILY, First dose (after last modificati on) on Tue05/20/22 at 0900, Until Discontinu ed, Routine [facility] aspirin 81 mg chewable tablet 05-20 00:00: 00 Yes [id number] 9103 81mg Take 1 tablet by mouth daily. [facility] pantoprazol e 40 mg EC tablet 05-20 00:00: 00 Yes [id number] 9103 40mg Take 1 tablet by mouth daily. [facility] isosorbide mononitrate 30 mg 24 hr tablet 05-20 00:00: 00 Yes [id number] 9103 30mg Take 1 tablet by mouth daily. [facility] losartan 50 mg tablet 05-20 00:00: 00 05-25 00:00 :00 No [id number] 9103 50mg Take 1 tablet by mouth daily. [facility] spironolact one 25 mg tablet 05-20 00:00: 00 05-25 00:00 :00 No [id number] 9103 12.5mg Take half a tablet by mouth daily. [facility] carvediloL (COREG) tablet 25 mg 05-19 23:00: 00 Yes 25mg 25 mg, Oral, BID MEALS, First dose (after last modificati on) on Tue05/19/22 at 1700, Until Discontinu ed, Routine [facility] heparin 1,000 unit/mL injection 2,000 Units 05-19 19:51: 17 Yes 2000U PRN - SEE INSTRUCTIO NS, Starting on Tue05/19/22 at 1351, Until Discontinu ed, Routine
For Priming of Ports:&nbs p; &n bsp; After initial saline flush, prime each port with heparin according to the priming volume listed on each catheter port for catheter lock.
[facility] losartan (COZAAR) tablet 50 mg 05-19 15:00: 00 05-19 17:30 :23 No 50mg 50 mg, Oral, DAILY, First dose on Tue05/19/22 at 0900, Until Discontinu ed, Routine [facility] furosemide 80 mg tablet 05-19 00:00: 00 Yes [id number] 9103 80mg Take 1 tablet by mouth every morning and evening. [facility] carvediloL 25 mg tablet 05-19 00:00: 00 Yes [id number] 9103 25mg Take 1 tablet by mouth 2 (two) times daily with meals. [facility] nitroglycer in 0.4 mg sublingual tablet 05-19 00:00: 00 Yes [id number] 1 tablet under the tongue every 5 (five) minutes as needed for Chest pain. [facility] insulin glargine 100 unit/mL injection 05-19 00:00: 00 06-19 05:59 :00 No [id number] 9103 12U inject 12 Units under the skin at bedtime for 30 days. [facility] insulin lispro, human, (ADMELOG U-100 INSULIN LISPRO) 100 unit/mL injection 05-19 00:00: 00 05-26 00:00 :00 No [id number] 9103 3U inject 3 Units under the skin 3 (three) times daily with meals. [facility] morpHINE (2 mg/mL) injection 2 mg 05-17 23:03: 00 05-17 23:08 :00 No 2mg 2 mg, Slow IV Push, ONCE, 1 dose, On Tue05/17/22 at 1715, Routine [facility] iopamidol (ISOVUE 370-500 mL) injection 05-17 21:47: 07 05-17 21:58 :33 No ONCE INTRA PROCEDURE, Starting on Tue05/17/22 at 1547, Until Tue05/17/22 at 1558, Routine, CV Intraproce dure [facility] lidocaine 1% (PF) (XYLOCAINE) injection 05-17 21:12: 19 05-17 21:58 :33 No ONCE INTRA PROCEDURE, Starting on Tue05/17/22 at 1512, Until Tue05/17/22 at 1558, Routine, CV Intraproce dure [facility] midazolam (VERSED) injection 05-17 21:04: 15 05-17 21:58 :33 No ONCE INTRA PROCEDURE, Starting on Tue05/17/22 at 1504, Until Tue05/17/22 at 1558, Routine, CV Intraproce dure [facility] FENTanyl PF (SUBLIMAZE (PF)) injection 05-17 21:04: 15 05-17 21:58 :33 No ONCE INTRA PROCEDURE, Starting on Tue05/17/22 at 1504, Until Tue05/17/22 at 1558, Routine, CV Intraproce dure [facility] carvediloL (COREG) tablet 12.5 mg 05-17 18:15: 00 Yes 12.5mg 12.5 mg, Oral, BID MEALS, First dose on Tue05/17/22 at 1215, Until Discontinu ed, Routine [facility] NaCl 0.9% (NS) injection 5 mL 05-17 13:45: 00 05-17 14:51 :00 No 5mL 5 mL, Slow IV Push, ONCE, 1 dose, On Tue05/17/22 at 0745, Routine [facility] heparin 1,000 unit/mL injection 2,000 Units 05-17 13:41: 07 Yes 2000U PRN - SEE INSTRUCTIO NS, Starting on Tue05/17/22 at 0741, Until Discontinu ed, Routine
For Priming of Ports:&nbs p; &n bsp; After initial saline flush, prime each port with heparin according to the priming volume listed on each catheter port for catheter lock.
[facility] D10W 10 % IV infusion 05-16 21:06: 15 Yes at 20-40 mL/hr, IV Infusion, TITRATE, Starting on Tue05/16/22 at 1506, Until Discontinu ed, Routine [facility] lidocaine 1% (PF) (XYLOCAINE) injection 05-14 20:43: 49 05-14 20:43 :49 No PRN, Starting on Tue05/14/22 at 1443, Until Tue05/14/22 at 1443, Routine [facility] FENTanyl PF (SUBLIMAZE (PF)) injection 05-14 20:41: 00 05-14 20:41 :00 No Slow IV Push, PRN, Starting on Tue05/14/22 at 1441, Until Tue05/14/22 at 1441, Routine [facility] midazolam (VERSED) injection 05-14 20:41: 00 05-14 20:41 :00 No IV Push, PRN, Starting on Tue05/14/22 at 1441, Until Tue05/14/22 at 1441, Routine [facility] ceFAZolin (ANCEF) injection 05-14 20:25: 00 05-14 20:25 :00 No Slow IV Push, PRN, Starting on Tue05/14/22 at 1425, Until Tue05/14/22 at 1425, CARLITOS [facility] heparin 1,000 unit/mL injection 2,000 Units 05-14 14:13: 51 Yes 2000U PRN - SEE INSTRUCTIO NS, Starting on Tue05/14/22 at 0813, Until Discontinu ed, Routine
For Priming of Ports:&nbs p; &n bsp; After initial saline flush, prime each port with heparin according to the priming volume listed on each catheter port for catheter lock.
[facility] heparin 1,000 unit/mL injection 2,000 Units 05-12 18:49: 07 Yes 2000U PRN - SEE INSTRUCTIO NS, Starting on Tue05/12/22 at 1249, Until Discontinu ed, Routine
For Priming of Ports:&nbs p; &n bsp; After initial saline flush, prime each port with heparin according to the priming volume listed on each catheter port for catheter lock.
[facility] HYDROcodone -acetaminop hen (NORCO 5) 5-325 mg tablet 1 tablet 05-12 02:45: 00 05-12 02:47 :00 No 1{tbl} 1 tablet, Oral, ONCE, 1 dose, On Tue05/11/22 at 2045, Routine [facility] metOLazone (ZAROXOLYN) tablet 5 mg 05-11 15:00: 00 05-13 21:03 :44 No 5mg 5 mg, Oral, DAILY, First dose on Tue05/11/22 at 0900, Until Discontinu ed, Routine [facility] acetaminoph en (TYLENOL) tablet 650 mg 05-11 14:44: 38 Yes 650mg 650 mg, Oral, Q6HPRN, Starting on Tue05/11/22 at 0844, Until Discontinu ed, Routine, Pain (scale 1-3), headaches [facility] NaCl 0.9% (NS) injection 5 mL 05-10 20:30: 00 05-10 22:06 :00 No 5mL 5 mL, Slow IV Push, ONCE, 1 dose, On Tue05/10/22 at 1430, Routine [facility] heparin 1,000 unit/mL injection 2,000 Units 05-10 20:21: 14 Yes 2000U PRN - SEE INSTRUCTIO NS, Starting on Tue05/10/22 at 1421, Until Discontinu ed, Routine
For Priming of Ports:&nbs p; &n bsp; After initial saline flush, prime each port with heparin according to the priming volume listed on each catheter port for catheter lock.
[facility] NaCl 0.9% (NS) IV infusion 250 mL 05-10 15:30: 00 Yes [id number] 250mL at 20 mL/hr, IV Infusion, CONTINUOUS , Starting on Tue05/10/22 at 0930, Until Discontinu ed, Routine
To keep vein open
[facility] perflutren lipid microsphere s (DEFINITY) injection 2 mL 05-10 15:15: 00 05-10 15:15 :00 No [id number] 2mL 2 mL, IV Push, ONCE, 1 dose, On Tue05/10/22 at 0915, Routine [facility] metoprolol (LOPRESSOR) injection 5 mg 05-10 15:15: 00 05-10 16:23 :00 No [id number] 5mg 5 mg, Slow IV Push, ONCE, 1 dose, On Tue05/10/22 at 0915, Routine [facility] furosemide (LASIX) tablet 80 mg 05-10 15:00: 00 Yes 80mg 80 mg, Oral, QAM+PM, First dose on Tue05/10/22 at 0900, Until Discontinu ed, Routine [facility] metoprolol succinate XL (TOPROL XL) tablet 50 mg 05-10 15:00: 00 05-17 18:05 :07 No 50mg 50 mg, Oral, DAILY, First dose (after last modificati on) on Tue05/10/22 at 0900, Until Discontinu ed, Routine [facility] DOBUTamine (DOBUTREX) 50 mg/50 mL IV infusion 05-10 14:18: 26 Yes [id number] 5ug/kg/ min 5 mcg/kg/min ?94 kg (28.2 mL/hr), IV Infusion, TITRATE, MAP Goal > or = [...] the Dobutamine infusion. (see Adjunctive Therapy)<b r> [facility] sennosides- docusate sodium (SENOKOT-S) 8.6-50 mg per tablet 1 tablet - 14:00: 00 Yes 1{tbl} 1 tablet, Oral, BID, First dose (after last modificati on) on Tue05/10/22 at 0800, Until Discontinu ed, Routine [facility] sevelamer (RENVELA) tablet 800 mg 05-10 14:00: 00 05-18 13:34 :44 No 800mg 800 mg, Oral, TID MEALS, First dose (after last modificati on) on Tue05/10/22 at 0800, Until Discontinu ed, Routine [facility] hydrALAZINE (APRESOLINE ) tablet 50 mg -15 20:00: 00 Yes 50mg 50 mg, Oral, Q8H, First dose (after last modificati on) on Tue05/09/22 at 1400, Until Discontinu ed, [facility] isos[facility]ide mononitrate (IMDUR) 24 hr tablet 30 mg 05-09 19:15: 00 Yes 30mg 30 mg, Oral, DAILY, First dose on Tue05/09/22 at 1315, Until Discontinu ed, Routine [facility] metoprolol succinate XL (TOPROL XL) tablet 25 mg 05-09 15:00: 00 05-09 18:37 :31 No 25mg 25 mg, Oral, DAILY, First dose on Tue05/09/22 at 0900, Until Discontinu ed, Routine [facility] KCL (KLOR-CON M20) tablet 40 mEq 05-09 14:00: 00 05-09 16:28 :00 No 40meq 40 mEq, Oral, ONCE, 1 dose, On Tue05/09/22 at 0800, Routine [facility] NaCl 0.9% (NS) injection 5 mL 05-07 23:30: 00 05-07 23:30 :00 No 5mL 5 mL, Slow IV Push, ONCE, 1 dose, On Tue05/07/22 at 1730, Routine [facility] heparin 1,000 unit/mL injection 2,000 Units 05-07 23:28: 18 05-09 23:22 :35 No 2000U PRN - SEE INSTRUCTIO NS, Starting on Tue05/07/22 at 1728, Until Tue05/09/22 at 1722, Routine
For Priming of Ports:&nbs p; &n bsp; After initial saline flush, prime each port with heparin according to the priming volume listed on each catheter port for catheter lock.
[facility] morpHINE (2 mg/mL) injection 2 mg 05-07 21:45: 00 05-07 21:02 :00 No 2mg 2 mg, Slow IV Push, ONCE, 1 dose, On Tue05/07/22 at 1545, Routine [facility] NaCl 0.9% (NS) injection 5 mL 05-07 21:30: 00 05-07 21:30 :00 No 5mL 5 mL, Slow IV Push, ONCE, 1 dose, On Tue05/07/22 at 1530, Routine [facility] mupirocin (BACTROBAN NASAL OINT) 2 % nasal ointment 05-07 21:27: 20 Yes Nasal, Q12H, For 5 days, First dose conditiona l, Routine [facility] heparin 1,000 unit/mL injection 2,000 Units 05-07 21:27: 20 05-09 23:22 :35 No 2000U PRN - SEE INSTRUCTIO NS, Starting on Tue05/07/22 at 1527, Until Tue05/09/22 at 1722, Routine
For Priming of Ports:&nbs p; &n bsp; After initial saline flush, prime each port with heparin according to the priming volume listed on each catheter port for catheter lock.
[facility] lidocaine 1% (XYLOCAINE) 10 mg/mL (1 %) injection 2 mL 05-07 18:00: 00 05-07 18:00 :00 No 2mL 2 mL, Infiltrati on, ONCE, 1 dose, On Tue05/07/22 at 1200, Routine [facility] NaCl 0.9% (NS) injection 5 mL 05-07 18:00: 00 05-07 18:00 :00 No 5mL 5 mL, Slow IV Push, ONCE, 1 dose, On Tue05/07/22 at 1200, Routine [facility] amLODIPine (NORVASC) tablet 10 mg 05-06 15:00: 00 05-13 19:26 :01 No 10mg 10 mg, Oral, DAILY, First dose (after last modificati on) on [place] 05/06/22 at 0900, Until Discontinu ed, Routine [facility] sennosides- docusate sodium (SENOKOT-S) 8.6-50 mg per tablet 2 tablet - 14:00: 00 05-10 13:12 :54 No 2{tbl} 2 tablet, Oral, BID, First dose (after last modificati on) on Tue05/06/22 at 0800, Until Discontinu ed, Routine [facility] acetaminoph en (TYLENOL) tablet 650 mg 05-05 23:43: 15 05-11 14:44 :52 No 650mg 650 mg, Oral, Q6HPRN, Starting on Tue05/05/22 at 1743, Until Tue05/11/22 at 0844, Routine, Pain (scale 4-6), Pain (scale 1-3), headaches [facility] sennosides- docusate sodium (SENOKOT-S) 8.6-50 mg per tablet 1 tablet 05-05 02:00: 00 05-06 03:34 :28 No 1{tbl} 1 tablet, Oral, BID, First dose (after last modificati on) on Tue05/04/22 at 2000, Until Discontinu ed, Routine [facility] metOLazone (ZAROXOLYN) tablet 5 mg 05-04 18:15: 00 05-08 20:34 :26 No 5mg 5 mg, Oral, DAILY, First dose on Tue05/04/22 at 1215, Until Discontinu ed, Routine [facility] sevelamer (RENVELA) tablet 1,600 mg 05-04 14:00: 00 05-10 13:13 :25 No 1600mg 1,600 mg, Oral, TID MEALS, First dose (after last modificati on) on Tue05/04/22 at 0800, Until Discontinu ed, Routine [facility] amLODIPine (NORVASC) tablet 5 mg 05-04 01:00: 00 05-06 03:32 :21 No 5mg 5 mg, Oral, DAILY, First dose on Tue05/03/22 at 1900, Until Discontinu ed, Routine [facility] hydrALAZINE (APRESOLINE ) tablet 25 mg 05-03 20:00: 00 05-09 18:37 :31 No 25mg 25 mg, Oral, Q8H, First dose on Tue05/03/22 at 1400, Until Discontinu ed, Routine [facility] perflutren protein-A microsphr (OPTISON) injection 3 mL 05-03 18:30: 00 05-03 17:53 :00 No [id number] 3mL 3 mL, IV Push, ONCE, 1 dose, On Tue05/03/22 at 1230, Routine [facility] sevelamer (RENVELA) tablet 800 mg 05-03 14:00: 00 05-04 00:50 :30 No 800mg 800 mg, Oral, TID MEALS, First dose on Tue05/03/22 at 0800, Until Discontinu ed, Routine [facility] sodium chloride (OCEAN MIST NASAL) 0.65 % nasal spray 1 Dailey 05-03 05:00: 00 05-03 04:36 :00 No 1{spray } 1 Dailey, Nasal, ONCE NOW, 1 dose, On Tue05/02/22 at 2300, Routine [facility] furosemide (LASIX) injection 120 mg 05-02 22:00: 00 05-10 13:08 :07 No 120mg 120 mg, Slow IV Push, TID, First dose on Tue05/02/22 at 1600, Until Discontinu ed, Routine [facility] trimethoben zamide (TIGAN) injection 100 mg 05-02 16:00: 30 Yes 100mg 100 mg, Intramuscu lar, Q6HPRN, Starting on Tue05/02/22 at 1000, Until Discontinu ed, Routine, Nausea and Vomiting (N/V) [facility] pantoprazol e (PROTONIX) EC tablet 40 mg 05-02 15:00: 00 Yes 40mg 40 mg, Oral, DAILY, First dose (after last modificati on) on Tue05/02/22 at 0900, Until Discontinu ed, Routine [facility] aspirin chewable tablet 81 mg 05-02 15:00: 00 Yes 81mg 81 mg, Oral, DAILY, First dose on Tue05/02/22 at 0900, Until Discontinu ed, Routine [facility] polyethylen e glycol 3350 powder 17 g 05-02 03:30: 00 Yes 17g 17 g, Oral, DAILY, First dose on 05/01/22 at 2130, Until Discontinu ed, Routine [facility] sennosides- docusate sodium (SENOKOT-S) 8.6-50 mg per tablet 1 tablet 05-02 03:30: 00 05-04 18:08 :22 No 1{tbl} 1 tablet, Oral, DAILY, First dose on 05/01/22 at 2130, Until Discontinu ed, Routine [facility] furosemide (LASIX) injection 80 mg 05-02 03:15: 00 05-02 03:08 :00 No 80mg 80 mg, IV Push, ONCE, 1 dose, On 05/01/22 at 2115, CARLITOS [facility] nitroglycer in (NITROSTAT) sublingual tablet 0.4 mg 05-02 03:10: 09 Yes .4mg 0.4 mg, Sublingual , Q5MIN PRN, Starting on 05/01/22 at 2110, Until Discontinu ed, Routine, Chest pain [facility] Sliding Scale Insulin - Lispro (HumaLOG) + Fsbg Testing 05-02 03:00: 00 Yes Subcutaneo us, TID MEALS+HS, First dose on 05/01/22 at 2100, Until Discontinu ed, Routine [facility] heparin (porcine) injection 5,000 Units 05-02 02:00: 00 Yes 5000U 5,000 Units, Subcutaneo us, Q12H, First dose on 05/01/22 at 2000, Until Discontinu ed, Routine [facility] dextrose 10% (D10W) bolus infusion 250 mL 05-02 01:04: 27 Yes 250mL 250 mL, IV Infusion, PRN - SEE INSTRUCTIO NS, Administer over 60 Minutes, Other, If blood [...] blood glucose is < 80 mg/dL, repeat.
[facility] glucagon (GLUCAGEN DIAGNOSTIC KIT) injection 1 mg 05-02 01:04: 21 Yes 1mg 1 mg, Intramuscu lar, PRN, Starting on 05/01/22 at 1904, Until Discontinu ed, CARLITOS, Blood Glucose < or = 70 mg/dL and patient is unable to swallow or has mental changes. [facility] acetaminoph en (TYLENOL) tablet 650 mg 05-02 00:59: 30 05-05 23:43 :38 No 650mg 650 mg, Oral, Q6HPRN, Starting on 05/01/22 at 1859, Until 05/05/22 at 1743, Routine, Pain (scale 1-3) [facility] furosemide (LASIX) injection 80 mg 05-01 20:30: 00 05-01 20:22 :00 No 80mg 80 mg, IV Push, ONCE, 1 dose, On 05/01/22 at 1430, CARLITOS [facility] furosemide (LASIX) injection 80 mg 05-01 18:15: 00 05-01 18:45 :00 No 80mg 80 mg, IV Push, ONCE, 1 dose, On 05/01/22 at 1215, CARLITOS [facility] TAKE 1 TABLET BY MOUTH THREE TIMES DAILY NEEDED FOR MUSCLE SPASM FOR 15 DAYS 2022-1 2-18 00:00: 00 Yes Quinn F Alexandre TAKE 1 TABLET DAILY. 2021-04 218 00:00: 00 09-06 00:00 :00 No Quinn F Alexandre Dose Unknown 2021-04 218 00:00: 00 09-06 00:00 :00 No Quinn F Alexandre Dose Unknown 2021-04 218 00:00: 00 09-06 00:00 :00 No Quinn F Alexandre Dose Unknown 2021-04 2 00:00: 00 09-06 00:00 :00 No Quinn F Alexandre Dose Unknown 2021-04 218 00:00: 00 09-06 00:00 :00 No Quinn F Alexandre TAKE 1 TABLET BY MOUTH ONCE DAILY AT NIGHT 2021-04 218 00:00: 00 09-06 00:00 :00 No Quinn F Alexandre CHEW AND SWALLOW 1 TABLET BY MOUTH ONCE DAILY 2021-04 00:00: 00 09-06 00:00 :00 No Quinn F Alexandre TAKE 1 TABLET BY MOUTH ONCE DAILY 2021-04 2 00:00: 00 09-06 00:00 :00 No Quinn F Alexandre Dose Unknown 2021-04 2 00:00: 00 09-06 00:00 :00 No Quinn F Alexandre TAKE 1 TABLET BY MOUTH AT BEDTIME 2021-04 2 00:00: 00 09-06 00:00 :00 No Quinn F Alexandre TAKE 1 TABLET TWICE DAILY. 2021-04 2 00:00: 00 09-06 00:00 :00 No 50 Quinn F Alexandre TAKE 1 TABLET AT BEDTIME. 12-01 00:00: 00 Yes Quinn F Alexandre TAKE 1 TABLET TWICE DAILY. 8- 00:00: 00 Yes Quinn F Alexandre Dose Unknown 8 00:00: 00 Yes Quinn F Alexandre Dose Unknown 8 00:00: 00 Yes Quinn F Alexandre TAKE 1 TABLET TWICE DAILY. 8-04 00:00: 00 Yes 25 Quinn F Alexandre Dose Unknown 803 00:00: 00 Yes Quinn F Alexandre TAKE 1 TABLET AT BEDTIME. 8 00:00: 00 Yes 40 Quinn Schroeder TAKE 1 TABLET TWICE DAILY. 8 00:00: 00 Yes 25 Quinn Schroeder TAKE 1 TABLET DAILY. 8 00:00: 00 Yes 10 Quinn Schroeder TAKE 1 TABLET TWICE DAILY. 8 00:00: 00 Yes 25 Quinn Schroeder 22 UNITS DAILY 11-21 00:00: 00 Yes 100 Quinn Schroeder aspirin 81 mg chewable tablet 05-05 00:00: 00 05-19 00:00 :00 No [id number] 9103 81mg Take 1 tablet by mouth daily. [facility] calcitrioL (ROCALTROL) capsule 0.25 mcg 05-04 15:00: 00 Yes .25ug 0.25 mcg, Oral, Q OTHERDAY, First dose on Tue05/04/21 at 0900, Until Discontinu ed, Routine [facility] furosemide (LASIX) 40 mg tablet 05-04 10:52: 58 05-04 00:00 :00 No 40mg Take 40 mg by mouth daily. [facility] pantoprazol e sodium (PANTOPRAZO LE ORAL) 05-04 10:52: 58 05-04 00:00 :00 No 40mg Take 40 mg by mouth daily. [facility] SUCRALFATE ORAL 05-04 10:52: 58 05-04 00:00 :00 No 1g Take 1 g by mouth every 8 (eight) hours. [facility] metoclopram yue HCl (REGLAN) 10 mg tablet 05-04 10:52: 58 05-04 00:00 :00 No 10mg Take 10 mg by mouth before meals. Take 20 minutes before each meal [facility] metoprolol succinate XL 100 mg 24 hr tablet 05-04 10:52: 58 05-04 00:00 :00 No 100mg Take 100 mg by mouth daily. [facility] telmisartan 40 mg tablet 05-04 10:52: 58 05-04 00:00 :00 No 40mg Take 40 mg by mouth every 12 (twelve) hours. [facility] amLODIPine 5 mg tablet 05-04 10:52: 58 05-04 00:00 :00 No 5mg Take 5 mg by mouth daily. [facility] insulin glargineestefaníarec.anlog (INSULIN GLARGINE SC) 05-04 10:52: 58 05-04 00:00 :00 No 18U inject 18 Units under the skin at bedtime. [facility] linaGLIPtin (TRADJENTA) 5 mg tablet 05-04 10:52: 58 05-04 00:00 :00 No 5mg Take 5 mg by mouth daily before breakfast. [facility] furosemide 20 mg tablet 05-04 10:52: 58 05-04 00:00 :00 No 20mg Take 20 mg by mouth with lunch. [facility] diphenidol HCl (DIPHENIDOL , BULK, MISC) 05-04 10:52: 58 05-04 00:00 :00 No 25mg 25 mg as needed for Nausea and Vomiting (N/V). Take one tablet one hour before meals or en case of vomiting [facility] docusate (COLACE) capsule 100 mg 05-04 02:00: 00 Yes 100mg 100 mg, Oral, BID, First dose on 05/03/21 at 2000, Until Discontinu ed, Routine [facility] polyethylen e glycol 3350 powder 17 g 05-04 01:53: 28 Yes 17g 17 g, Oral, QDAILYPRN, Starting on 05/03/21 at 1952, Until Discontinu ed, Routine, Constipati on [facility] bisacodyL (DULCOLAX) tablet 5 mg 05-04 01:53: 05 Yes 5mg 5 mg, Oral, QDAILYPRN, Starting on 05/03/21 at 1953, Until Discontinu ed, Routine, Constipati on [facility] amLODIPine 5 mg tablet 05-04 00:00: 00 05-19 00:00 :00 No [id number] 9103 5mg Take 1 tablet by mouth daily. [facility] pantoprazol e 20 mg EC tablet 05-04 00:00: 00 05-19 00:00 :00 No [id number] 9103 20mg Take 1 tablet by mouth daily. [facility] insulin glargine 100 unit/mL injection 05-04 00:00: 00 05-19 00:00 :00 No [id number] 9103 25U inject 25 Units under the skin at bedtime. [facility] metoprolol succinate XL 100 mg 24 hr tablet 05-04 00:00: 00 05-19 00:00 :00 No [id number] 9103 100mg Take 1 tablet by mouth daily. [facility] furosemide 40 mg tablet 05-04 00:00: 00 05-19 00:00 :00 No [id number] 9103 120mg Take 3 tablets by mouth every morning and evening. 120 mg twice a day [facility] furosemide (LASIX) tablet 120 mg 05-03 23:00: 00 Yes 120mg 120 mg, Oral, QAM+PM, First dose on 05/03/21 at 1700, Until Discontinu ed, Routine [facility] iron sucrose (VENOFER) 300 mg in NaCl 0.9% (NS) 250 mL infusion 05-03 20:15: 00 05-03 23:04 :00 No 300mg 300 mg, IV Infusion, ONCE, Administer over 2.5 Hours, On 05/03/21 at 1415, For 1 dose [facility] insulin glargine (LANTUS U-100) injection 25 Units 05-03 03:00: 00 Yes 25U 25 Units, Subcutaneo us, QHS, First dose (after last modificati on) on 05/02/21 at 2100, Until Discontinu ed [facility] Sliding Scale Insulin - Lispro (HumaLOG) + Fsbg Testing 05-03 02:00: 00 Yes Subcutaneo us, Q4H, First dose (after last modificati on) on 05/02/21 at 2000, Until Discontinu ed, Routine [facility] sodium bicarbonate (ANTACID (SODIUM BICARBONATE )) tablet 650 mg 05-02 18:00: 00 Yes 650mg 650 mg, Oral, QID, First dose on Tue05/02/21 at 1200, Until Discontinu ed, Routine [facility] furosemide (LASIX) injection 80 mg 05-02 18:00: 00 05-03 18:56 :55 No 80mg 80 mg, Slow IV Push, Q6H, First dose on Tue05/02/21 at 1200, Until Discontinu ed, Routine [facility] dexamethaso ne (DECADRON PHOSPHATE) injection 6 mg 05-02 15:00: 00 05-11 14:59 :00 No 6mg 6 mg, Slow IV Push, DAILY, 9 doses, First dose (after last reorder) on Tue05/02/21 at 0900, Last dose on Tue05/10/21 at 0900, Routine [facility] sodium bicarbonate 150 mEq in D5W 1,000 mL IV infusion 05-02 10:15: 00 05-02 10:15 :00 No [id number] 150meq IV Infusion, at 125 mL/hr, 150 mEq, ONCE, 1 dose, On Tue05/02/21 at 0415, STAT [facility] furosemide (LASIX) injection 80 mg 05-01 16:45: 00 05-02 16:21 :05 No [id number] 80mg 80 mg, Slow IV Push, Q12H, First dose on Tue05/01/21 at 1045, Until Discontinu ed, Routine [facility] aspirin chewable tablet 81 mg 05-01 15:00: 00 Yes 81mg 81 mg, Oral, DAILY, First dose on Tue05/01/21 at 0900, Until Discontinu ed, Routine [facility] pantoprazol e (PROTONIX) EC tablet 40 mg 05-01 15:00: 00 Yes 40mg 40 mg, Oral, DAILY, First dose on Tue05/01/21 at 0900, Until Discontinu ed [facility] metoprolol succinate XL (TOPROL XL) tablet 100 mg 05-01 15:00: 00 Yes 100mg 100 mg, Oral, DAILY, First dose on Tue05/01/21 at 0900, Until Discontinu ed, Routine [facility] amLODIPine (NORVASC) tablet 5 mg 05-01 15:00: 00 Yes 5mg 5 mg, Oral, DAILY, First dose on Tue05/01/21 at 0900, Until Discontinu ed, Routine [facility] dexamethaso ne (DECADRON PHOSPHATE) injection 6 mg 05-01 06:00: 00 05-01 11:00 :00 No 6mg 6 mg, Slow IV Push, ONCE, 1 dose, On Tue05/01/21 at 0000, Routine [facility] insulin glargine (LANTUS U-100) injection 18 Units 05-01 03:00: 00 05-03 00:39 :26 No 18U 18 Units, Subcutaneo us, QHS, First dose on Tue04/30/21 at 2100, Until Discontinu ed [facility] Sliding Scale Insulin - Lispro (HumaLOG) + Fsbg Testing 04-30 23:00: 00 05-03 00:39 :26 No Subcutaneo us, TID MEALS+HS, First dose on Tue04/30/21 at 1700, Until Discontinu ed, Routine [facility] sulfur hexafluorid e microsphr (LUMASON) injection 5 mL 04-30 21:00: 00 04-30 21:00 :00 No [id number] 5mL 5 mL, Intravenou s, ONCE, 1 dose, On Tue04/30/21 at 1500, Routine
store team member approving Restricted medication : CHAPIS GUPTA [facility] heparin (porcine) injection 5,000 Units 04-30 20:00: 00 Yes 5000U 5,000 Units, Subcutaneo us, Q8H, First dose on Tue04/30/21 at 1400, Until Discontinu ed, Routine [facility] codeine-gua ifenesin (ROBITUSSIN AC) 10-100 mg/5 mL oral solution 10 mL 04-30 19:40: 55 Yes 10mL 10 mL, Oral, Q6HPRN, Starting on Tue04/30/21 at 1340, Until Discontinu ed, Routine, Cough [facility] albuterol (VENTOLIN) inhaler 2 Puff 04-30 19:40: 48 Yes 2{puff} 2 Puff, Inhalation , Q6HPRN, Starting on Tue04/30/21 at 1340, Until Discontinu ed, Routine, Wheezing, Shortness of Breath, Bronchospa sm, Chest tightness [facility] acetaminoph en (TYLENOL) tablet 650 mg 04-30 19:39: 47 Yes 650mg 650 mg, Oral, Q6HPRN, Starting on Tue04/30/21 at 1339, Until Discontinu ed, Routine, Pain (scale 1-3) [facility] dexamethaso ne (DECADRON PHOSPHATE) injection 10 mg 04-30 13:45: 00 04-30 13:45 :00 No 10mg 10 mg, IV Push, ONCE, 1 dose, On Tue04/30/21 at 0745, STAT [facility] acetaminoph en (TYLENOL) tablet 1,000 mg 04-30 12:45: 00 04-30 11:48 :00 No 1000mg 1,000 mg, Oral, ONCE, 1 dose, On Tue04/30/21 at 0645, CARLITOS [facility] Vital Signs Vital Name Observation Time Observation Value Comments S roxy Systolic blood pressure 2022-05-27 01:52:00 156 mm[Hg] [facility] Diastolic blood pressure 2022-05-27 01:52:00 66 mm[Hg] [facility] Heart rate 2022-05-27 01:52:00 65 /min [facility] Body temperature 2022-05-27 01:52:00 36.44 Venita [facility] Respiratory rate 2022-05-27 01:52:00 18 /min [facility] Oxygen saturation in Arterial blood by Pulse oximetry 2022-05-27 01:52:00 97 /min [facility] Body weight 2022-05-27 01:23:00 70.1 kg [facility] BMI 2022-05-27 01:23:00 26.53 kg/m2 [facility] Body height 2022-05-14 19:48:00 162.6 cm [facility] Systolic blood pressure 2022-05-17 22:45:00 132 mm[Hg] [facility] Diastolic blood pressure 2022-05-17 22:45:00 59 mm[Hg] [facility] Respiratory rate 2022-05-17 22:45:00 22 /min [facility] Oxygen saturation in Arterial blood by Pulse oximetry 2022-05-17 22:45:00 96 /min [facility] Heart rate 2022-05-17 18:15:00 80 /min [facility] Body temperature 2022-05-17 18:15:00 36.22 Venita [facility] Body weight 2022-05-17 17:54:00 64.225 kg [facility] BMI 2022-05-17 17:54:00 24.30 kg/m2 [facility] Body height 2022-05-14 19:48:00 162.6 cm [facility] Systolic blood pressure 2021-05-04 17:15:00 156 mm[Hg] [facility] Diastolic blood pressure 2021-05-04 17:15:00 60 mm[Hg] [facility] Heart rate 2021-05-04 17:15:00 93 /min [facility] Body temperature 2021-05-04 17:15:00 37 Venita [facility] Respiratory rate 2021-05-04 17:15:00 18 /min [facility] Oxygen saturation in Arterial blood by Pulse oximetry 2021-05-04 17:15:00 96 /min [facility] Body weight 2021-05-01 09:42:00 84.959 kg [facility] BMI 2021-05-01 09:42:00 34.26 kg/m2 [facility] Body height 2021-04-30 15:05:00 157.5 cm [facility] BP Systolic 2023-09-14 16:34:00 134 mm[Hg] Step hen F Alexandre BP Diastolic 2023-09-14 16:34:00 52 mm[Hg] Maykel phen F Alexandre Weight Measured 2023-09-14 16:34:00 184.60 pounds Quinn F Alexandre Height Measured 2023-09-14 16:34:00 61.00 inches Quinn F Alexandre Body Temperature 2023-09-14 16:34:00 97.30 degrees Quinn F Alexandre Heart Rate 2023-09-14 16:34:00 59.00 /min Monika en F Alexandre Respiratory Rate 2023-09-14 16:34:00 18.00 /min Quinn F Alexandre BP Systolic 2023-07-21 17:23:00 174 mm[Hg] Step hen F Alexandre BP Diastolic 2023-07-21 17:23:00 68 mm[Hg] Maykel phen F Alexandre Weight Measured 2023-07-21 17:23:00 185.40 pounds Quinn F Alexandre Height Measured 2023-07-21 17:23:00 61.00 inches Quinn F Alexandre Body Temperature 2023-07-21 17:23:00 98.20 degrees Quinn F Alexandre Heart Rate 2023-07-21 17:23:00 73.00 /min Monika en F Alexandre Respiratory Rate 2023-07-21 17:23:00 16.00 /min Quinn F Alexandre BP Systolic 2023-07-01 09:19:00 152 mm[Hg] Step hen F Alexandre BP Diastolic 2023-07-01 09:19:00 74 mm[Hg] Maykel phen F Alexandre Weight Measured 2023-07-01 09:19:00 185.40 pounds Quinn F Alexandre Height Measured 2023-07-01 09:19:00 61.00 inches Quinn F Alxeandre Body Temperature 2023-07-01 09:19:00 98.10 degrees Quinn F Alexandre Heart Rate 2023-07-01 09:19:00 57.00 /min Monika en F Alexandre Respiratory Rate 2023-07-01 09:19:00 16.00 /min Quinn F Alexandre BP Systolic 2023-06-14 17:27:00 172 mm[Hg] Step hen F Alexandre BP Diastolic 2023-06-14 17:27:00 80 mm[Hg] Maykel phen F Alexandre Weight Measured 2023-06-14 17:27:00 188.40 pounds Quinn F Alexandre Height Measured 2023-06-14 17:27:00 61.00 inches Quinn F Alexandre Body Temperature 2023-06-14 17:27:00 98.10 degrees Quinn F Alexandre Heart Rate 2023-06-14 17:27:00 67.00 /min Monika en F Alexandre Respiratory Rate 2023-06-14 17:27:00 17.00 /min Quinn F Alexandre BP Systolic 2023-04-06 16:52:00 136 mm[Hg] Step hen F Alexandre BP Diastolic 2023-04-06 16:52:00 61 mm[Hg] Maykel phen F Alexandre Weight Measured 2023-04-06 16:52:00 182.40 pounds Quinn F Alexandre Height Measured 2023-04-06 16:52:00 61.00 inches Qunin F Alexandre Body Temperature 2023-04-06 16:52:00 97.40 degrees Quinn F Alexandre Heart Rate 2023-04-06 16:52:00 65.00 /min Monika en F Alexandre Respiratory Rate 2023-04-06 16:52:00 Quinn F Alexandre BP Systolic 2023-03-08 08:45:00 158 mm[Hg] Step hen F Alexandre BP Diastolic 2023-03-08 08:45:00 63 mm[Hg] Maykel phen F Alexandre Weight Measured 2023-03-08 08:45:00 180.00 pounds Quinn F Alexandre Height Measured 2023-03-08 08:45:00 61.00 inches Quinn F Alexandre Body Temperature 2023-03-08 08:45:00 97.40 degrees Quinn F Alexandre Heart Rate 2023-03-08 08:45:00 65.00 /min Monika en F Alexandre Respiratory Rate 2023-03-08 08:45:00 Quinn F Alexandre BP Systolic 2022-12-30 10:10:00 143 mm[Hg] Step hen F Alexnadre BP Diastolic 2022-12-30 10:10:00 60 mm[Hg] Maykel phen F Alexandre Weight Measured 2022-12-30 10:10:00 176.60 pounds Quinn F Alexandre Height Measured 2022-12-30 10:10:00 61.00 inches Quinn F Alexandre Body Temperature 2022-12-30 10:10:00 97.30 degrees Quinn F Alexandre Heart Rate 2022-12-30 10:10:00 62.00 /min Monika en F Alexandre Respiratory Rate 2022-12-30 10:10:00 25.00 /min Quinn F Alexandre BP Systolic 2022-12-30 09:34:00 143 mm[Hg] Step hen F Alexandre BP Diastolic 2022-12-30 09:34:00 60 mm[Hg] Maykel phen F Alexandre Weight Measured 2022-12-30 09:34:00 176.60 pounds Quinn F Alexandre Height Measured 2022-12-30 09:34:00 61.00 inches Quinn F Alexandre Body Temperature 2022-12-30 09:34:00 97.30 degrees Quinn F Alexandre Heart Rate 2022-12-30 09:34:00 62.00 /min Monika en F Alexandre Respiratory Rate 2022-12-30 09:34:00 25.00 /min Quinn F Alexandre BP Systolic 2022-12-07 08:32:00 158 mm[Hg] Step hen F Alexandre BP Diastolic 2022-12-07 08:32:00 62 mm[Hg] Maykel phen F Alexandre Weight Measured 2022-12-07 08:32:00 174.20 pounds Quinn F Alexandre Height Measured 2022-12-07 08:32:00 61.00 inches Quinn F Alexandre Body Temperature 2022-12-07 08:32:00 97.20 degrees Quinn F Alexandre Heart Rate 2022-12-07 08:32:00 64.00 /min Monika en F Alexandre Respiratory Rate 2022-12-07 08:32:00 Quinn F Alexandre BP Systolic 2022-12-07 08:16:00 158 mm[Hg] David Schroeder BP Diastolic 2022-12-07 08:16:00 62 mm[Hg] Maykel Schroeder Weight Measured 2022-12-07 08:16:00 174.20 pounds Quinn Schroeder Height Measured 2022-12-07 08:16:00 61.00 inches Quinn Schroeder Body Temperature 2022-12-07 08:16:00 97.20 degrees Quinn Schroeder Heart Rate 2022-12-07 08:16:00 64.00 /min Monika Schroeder Respiratory Rate 2022-12-07 08:16:00 Quinn Schroeder Systolic blood pressure 2022-05-16 17:40:00 123 mm[Hg] [facility] Diastolic blood pressure 2022-05-16 17:40:00 55 mm[Hg] [place] [facility] Heart rate 2022-05-16 17:40:00 69 /min [facility] Body temperature 2022-05-16 17:40:00 36.67 Venita [facility] Respiratory rate 2022-05-16 17:40:00 18 /min [facility] Oxygen saturation in Arterial blood by Pulse oximetry 2022-05-16 17:40:00 100 /min [place] [facility] Body height 2022-05-14 19:48:00 162.6 cm [facility] Body weight 2022-05-14 19:48:00 66.225 kg [facility] BMI 2022-05-14 19:48:00 25.06 kg/m2 [facility] Procedures Procedure Date / Time Performed Performing Clinician Source [facility] 2022-12-28 05:01:00 Doctor Unassigned, [place] [facility] INSURANCE CORRESPONDENCE 2022-12-02 05:01:00 Doc tor Unassigned, [place] [facility] REFERRAL- REQUEST/RESPONSE 2022-09-28 05:01:00 Doctor Unassigned, [place] [facility] FREE TREATMENT FORM 2022-06-10 15:38:31 Doctor Unassigned, [place] [facility] CONSENT/REFUSAL FOR DIAGNOSIS AND TREATMENT 2022-06-08 14:57:49 Doctor Unassigned, [place] [facility] POCT GLUCOSE (AUTOMATED) 2022-05-27 01:52:00 Itu Lisette Li [facility] POCT GLUCOSE (AUTOMATED) 2022-05-26 22:40:00 Itu Lisette Li [facility] POCT GLUCOSE (AUTOMATED) 2022-05-26 18:52:00 Itu Lisette Li [facility] POCT GLUCOSE (AUTOMATED) 2022-05-26 15:28:00 Itu Lisette Li [facility] PHOSPHORUS 2022-05-26 09:59:00 [facility] 09[facility]59[facility]00 [facility] BAS[facility]OLIC PANEL (NA, K, CL, CO2, GLUCOSE, BUN, CREATININE, CA) 2022-05-26 09:59:00 [facility] CBC WITH DIFF 2022-05-26 09:59:00 [facility] 2022-05-26 03:09:00 Itu Lisette Li [facility] POCT GLUCOSE (AUTOMATED) 2022-05-25 23:18:00 Itu Lisette Li [facility] POCT GLUCOSE (AUTOMATED) 2022-05-25 18:06:00 Itu Lisette Li [facility] POCT GLUCOSE (AUTOMATED) 2022-05-25 15:17:00 Itu Lisette Li [facility] POCT GLUCOSE (AUTOMATED) 2022-05-25 03:12:00 Itu Lisette Li [facility] POCT GLUCOSE (AUTOMATED) 2022-05-25 01:41:00 Itu Lisette Li [facility] POCT GLUCOSE (AUTOMATED) 2022-05-24 18:01:00 Lisette Padilla [facility] POCT GLUCOSE (AUTOMATED) 2022-05-24 15:23:00 Lisette Padilla [facility] HB ECG ROUTINE & RHYTHM STRIP 2022-05-24 13:36:35 Olena Gilbert [facility] PHOSPHORUS 2022-05-24 10:38:00 Chris Zapata [facility] MAGNESIUM 2022-05-24 10:38:00 Benny Chris [facility] BASIC METABOLIC PANEL (NA, K, CL, CO2, GLUCOSE, BUN, CREATININE, CA) 2022-05-24 10:38:00 Benny Chris [facility] CBC WITH DIFF 2022-05-24 10:38:00 Chris Zapata [facility] POCT GLUCOSE (AUTOMATED) 2022-05-24 03:02:00 Itu Lisette Li [facility] POCT GLUCOSE (AUTOMATED) 2022-05-23 23:34:00 Itu Lisette Li [facility] POCT GLUCOSE (AUTOMATED) 2022-05-23 18:11:00 Itu Lisette Li [facility] POCT GLUCOSE (AUTOMATED) 2022-05-23 15:12:00 Itu Lisette Li [facility] MAGNESIUM 2022-05-23 09:58:00 Chris Zapata [facility] BASIC METABOLIC PANEL (NA, K, CL, CO2, GLUCOSE, BUN, CREATININE, CA) 2022-05-23 09:58:00 Chris Zapata [facility] POCT GLUCOSE (AUTOMATED) 2022-05-23 02:39:00 Itu Lisette Li [facility] POCT GLUCOSE (AUTOMATED) 2022-05-22 23:21:00 Itu Lisette Li [facility] POCT GLUCOSE (AUTOMATED) 2022-05-22 20:35:00 Itu Lisette Li [facility] POCT GLUCOSE (AUTOMATED) 2022-05-22 18:31:00 Itu Lisette Li [facility] HB ECG ROUTINE & RHYTHM STRIP 2022-05-22 15:37:20 Olena Gilbert [facility] POCT GLUCOSE (AUTOMATED) 2022-05-22 15:07:00 Itu Lisette Li [facility] MAGNESIUM 2022-05-22 09:38:00 Chris Zapata [facility] BASIC METABOLIC PANEL (NA, K, CL, CO2, GLUCOSE, BUN, CREATININE, CA) 2022-05-22 09:38:00 Benny Chris [facility] POCT GLUCOSE (AUTOMATED) 2022-05-22 03:04:00 Itu Lisette Li [facility] POCT GLUCOSE (AUTOMATED) 2022-05-21 23:16:00 Itu Lisette Li [facility] POCT GLUCOSE (AUTOMATED) 2022-05-21 15:02:00 Itu Lisette Li [facility] HB ECG ROUTINE & RHYTHM STRIP 2022-05-21 14:28:30 [facility]-05-21 10:53:00 Crhis Zapata [facility] MAGNESIUM 2022-05-21 10:53:00 Benny Chris [facility] BASIC METABOLIC PANEL (NA, K, CL, CO2, GLUCOSE, BUN, CREATININE, CA) 2022-05-21 10:53:00 Benny Chris [facility] CBC WITH DIFF 2022-05-21 10:53:00 Chris Zapata [facility] POCT GLUCOSE (AUTOMATED) 2022-05-21 03:47:00 Itu Lisette Li [facility] POCT GLUCOSE (AUTOMATED) 2022-05-20 23:08:00 Itu Lisette Li [facility] POCT GLUCOSE (AUTOMATED) 2022-05-20 19:21:00 Itu Lisette Li [facility] HB ECG ROUTINE & RHYTHM STRIP 2022-05-20 14:06:21 [facility] POCT GLUCOSE (AUTOMATED) 2022-05-20 13:51:00 Itu Lisette Li [facility] POCT GLUCOSE (AUTOMATED) 2022-05-20 07:57:00 Itu Lisette Li [facility] POCT GLUCOSE (AUTOMATED) 2022-05-20 04:45:00 Itu Lisette Li [facility] POCT GLUCOSE (AUTOMATED) 2022-05-20 00:28:00 Itu Lisette Li [facility] POCT GLUCOSE (AUTOMATED) 2022-05-19 18:03:00 Itu Lisette Li [facility] POCT GLUCOSE (AUTOMATED) 2022-05-19 14:43:00 Itu Lisette Li [facility] HB ECG ROUTINE & RHYTHM STRIP 2022-05-19 13:37:14 Ervin Cazares [facility] PHOSPHORUS 2022-05-19 11:24:00 Chris Zapata [facility] MAGNESIUM 2022-05-19 11:24:00 Benny Chris [facility] BASIC METABOLIC PANEL (NA, K, CL, CO2, GLUCOSE, BUN, CREATININE, CA) 2022-05-19 11:24:00 Benny Chris [facility] CBC WITH DIFF 2022-05-19 11:24:00 Chris Zapata [facility] POCT GLUCOSE (AUTOMATED) 2022-05-19 03:37:00 Itu Lisette Li [facility] POCT GLUCOSE (AUTOMATED) 2022-05-18 22:25:00 Itu Lisette Li [facility] POCT GLUCOSE (AUTOMATED) 2022-05-18 18:03:00 Itu Lisette Li [facility] POCT GLUCOSE (AUTOMATED) 2022-05-18 18:03:00 Itu Lisette Li [facility] POCT GLUCOSE (AUTOMATED) 2022-05-18 14:51:00 Itu Lisette Li [facility] POCT GLUCOSE (AUTOMATED) 2022-05-18 14:51:00 Itu Lisette Li [facility] HB ECG ROUTINE & RHYTHM STRIP 2022-05-18 14:28:11 [facility] 2022-05-18 12:58:00 [facility] CBC WITH DIFF 2022-05-18 12:58:00 [facility] PHOSPHORUS 2022-05-18 12:57:00 [facility] URIC ACID 2022-05-18 12:57:00 Benny Chris [facility] MAGNESIUM 2022-05-18 12:57:00 [facility] BASIC METABOLIC PANEL (NA, K, CL, CO2, GLUCOSE, BUN, CREATININE, CA) 2022-05-18 12:57:00 [facility] PHOSPHORUS 2022-05-18 12:57:00 [facility] URIC ACID 2022-05-18 12:57:00 Chris Zapata [facility] MAGNESIUM 2022-05-18 12:57:00 [facility] BASIC METABOLIC PANEL (NA, K, CL, CO2, GLUCOSE, BUN, CREATININE, CA) 2022-05-18 12:57:00 [facility] POCT GLUCOSE (AUTOMATED) 2022-05-18 03:43:00 Itu Lisette Li [facility] POCT GLUCOSE (AUTOMATED) 2022-05-18 03:43:00 Itu Lisette Li [facility] CBC WITHOUT DIFF 2022-05-18 00:45:00 [facility] CBC WITHOUT DIFF 2022-05-18 00:45:00 [facility] POCT GLUCOSE (AUTOMATED) 2022-05-17 23:08:00 Itu Lisette Li [facility] POCT GLUCOSE (AUTOMATED) 2022-05-17 23:08:00 Itu Lisette Li [facility] CARDIAC CATHETERIZATION 2022-05-17 21:37:27 Tessa navarrete [facility] CARDIAC CATHETERIZATION 2022-05-17 21:37:27 yefri landon, [facility] CARDIAC CATHETERIZATION 2022-05-17 21:37:27 [facility] CARDIAC CATHETERIZATION 2022-05-17 21:37:27 yefri landon, [facility] CARDIAC CATHETERIZATION 2022-05-17 21:37:27 [facility] CARDIAC CATHETERIZATION 2022-05-17 21:37:27 [facility] POCT GLUCOSE (AUTOMATED) 2022-05-17 18:12:00 Jimmy Rosenthal [facility] POCT GLUCOSE (AUTOMATED) 2022-05-17 18:12:00 Jimmy Rosenthal [facility] POCT GLUCOSE (AUTOMATED) 2022-05-17 15:02:00 Jimmy Rosenthal [facility] POCT GLUCOSE (AUTOMATED) 2022-05-17 15:02:00 Jimmy Rosenthal [facility] PHOSPHORUS 2022-05-17 10:39:00 Chris Zapata [facility] MAGNESIUM 2022-05-17 10:39:00 Chris Zapata [facility] BASIC METABOLIC PANEL (NA, K, CL, CO2, GLUCOSE, BUN, CREATININE, CA) 2022-05-17 10:39:00 Benny Chris [facility] CBC WITH DIFF 2022-05-17 10:39:00 Chris Zapata [facility] PHOSPHORUS 2022-05-17 10:39:00 Chris Zapata [facility] MAGNESIUM 2022-05-17 10:39:00 Chris Zapata [facility] BASIC METABOLIC PANEL (NA, K, CL, CO2, GLUCOSE, BUN, CREATININE, CA) 2022-05-17 10:39:00 Benny Chris [facility] CBC WITH DIFF 2022-05-17 10:39:00 Chris Zapata [facility] POCT GLUCOSE (AUTOMATED) 2022-05-17 02:15:00 Galo, Jimmy Holloway [facility] POCT GLUCOSE (AUTOMATED) 2022-05-17 02:15:00 Galo, Gr isael [facility] POCT GLUCOSE (AUTOMATED) 2022-05-16 23:45:00 Galo, Jimmy kirkland [facility] POCT GLUCOSE (AUTOMATED) 2022-05-16 23:45:00 Galo, Jimmy kirkland [facility] POCT GLUCOSE (AUTOMATED) 2022-05-16 18:50:00 Galo, Jimmy jane [facility] POCT GLUCOSE (AUTOMATED) 2022-05-16 18:50:00 Galo, Gr isael [facility] POCT GLUCOSE (AUTOMATED) 2022-05-16 15:01:00 Galo, Jimmy kirkland [facility] POCT GLUCOSE (AUTOMATED) 2022-05-16 15:01:00 Galo, Jimmy kirkland [facility] POCT GLUCOSE (AUTOMATED) 2022-05-16 15:01:00 Galo, Jimmy kirkland [facility] HB ECG ROUTINE & RHYTHM STRIP 2022-05-16 13:56:37 [facility] HB ECG ROUTINE & RHYTHM STRIP 2022-05-16 13:56:37 [facility] PHOSPHORUS 2022-05-16 11:22:00 Chris Zapata [facility] MAGNESIUM 2022-05-16 11:22:00 Benny Chris [facility] BASIC METABOLIC PANEL (NA, K, CL, CO2, GLUCOSE, BUN, CREATININE, CA) 2022-05-16 11:22:00 Benny Chris [facility] PHOSPHORUS 2022-05-16 11:22:00 Benny Chris [facility] MAGNESIUM 2022-05-16 11:22:00 Chris Zapata [facility] BASIC METABOLIC PANEL (NA, K, CL, CO2, GLUCOSE, BUN, CREATININE, CA) 2022-05-16 11:22:00 Chris Zapata [facility] PHOSPHORUS 2022-05-16 11:22:00 Chris Zapata [facility] MAGNESIUM 2022-05-16 11:22:00 Benny Chris [facility] BASIC METABOLIC PANEL (NA, K, CL, CO2, GLUCOSE, BUN, CREATININE, CA) 2022-05-16 11:22:00 Benny Chris [facility] POCT GLUCOSE (AUTOMATED) 2022-05-16 03:03:00 GaloJimmy saxena [facility] POCT GLUCOSE (AUTOMATED) 2022-05-16 03:03:00 GaloJimmy saxena [facility] POCT GLUCOSE (AUTOMATED) 2022-05-16 03:03:00 GaloJimmy [facility] POCT GLUCOSE (AUTOMATED) 2022-05-15 23:14:00 GaloJimmy [facility] POCT GLUCOSE (AUTOMATED) 2022-05-15 23:14:00 GaloJimmy [facility] POCT GLUCOSE (AUTOMATED) 2022-05-15 23:14:00 Jimmy Rosenthal [facility] POCT GLUCOSE (AUTOMATED) 2022-05-15 18:58:00 GaloJimmy [facility] POCT GLUCOSE (AUTOMATED) 2022-05-15 18:58:00 Galo, Jimmy Holloway [facility] POCT GLUCOSE (AUTOMATED) 2022-05-15 18:58:00 Galo, Jimmy Holloway [facility] POCT GLUCOSE (AUTOMATED) 2022-05-15 14:43:00 Galo, Jimmy Holloway [facility] POCT GLUCOSE (AUTOMATED) 2022-05-15 14:43:00 Galo, Jimmy Holloway [facility] POCT GLUCOSE (AUTOMATED) 2022-05-15 14:43:00 Jimmy Rosenthal [facility] HB ECG ROUTINE & RHYTHM STRIP 2022-05-15 13:41:24 [facility] HB ECG ROUTINE & RHYTHM STRIP 2022-05-15 13:41:24 [facility] BASIC METABOLIC PANEL (NA, K, CL, CO2, GLUCOSE, BUN, CREATININE, CA) 2022-05-15 11:55:00 Chris Zapata [facility] BASIC METABOLIC PANEL (NA, K, CL, CO2, GLUCOSE, BUN, CREATININE, CA) 2022-05-15 11:55:00 Chris Zapata [facility] BASIC METABOLIC PANEL (NA, K, CL, CO2, GLUCOSE, BUN, CREATININE, CA) 2022-05-15 11:55:00 Chris Zapata [facility] POCT GLUCOSE (AUTOMATED) 2022-05-15 02:08:00 Jimmy Rosenthal [facility] POCT GLUCOSE (AUTOMATED) 2022-05-15 02:08:00 Jimmy Rosenthal [facility] POCT GLUCOSE (AUTOMATED) 2022-05-15 02:08:00 Jimmy Rosenthal [facility] POCT GLUCOSE (AUTOMATED) 2022-05-14 22:20:00 Jimmy Rosenthal [facility] POCT GLUCOSE (AUTOMATED) 2022-05-14 22:20:00 Jimmy Rosenthal [facility] POCT GLUCOSE (AUTOMATED) 2022-05-14 22:20:00 Jimmy Rosenthal [facility] IR CENTRALLY INSERTED DEVICE TUNNELED 5 OR OLDER NO PORT/PUMP 2022-05-14 21:12:04 Alie Lopez [facility] IR CENTRALLY INSERTED DEVICE TUNNELED 5 OR OLDER NO PORT/PUMP 2022-05-14 21:12:04 Alie Lopez [facility] IR CENTRALLY INSERTED DEVICE TUNNELED 5 OR OLDER NO PORT/PUMP 2022-05-14 21:12:04 Alie Lopez [facility] PROTHROMBIN TIME / INR 2022-05-14 18:17:00 Alie Greene [facility] PROTHROMBIN TIME / INR 2022-05-14 18:17:00 Alie Greene [facility] PROTHROMBIN TIME / INR 2022-05-14 18:17:00 [facility] POCT GLUCOSE (AUTOMATED) 2022-05-14 18:02:00 Galo, Gr isael Holloway [facility] POCT GLUCOSE (AUTOMATED) 2022-05-14 18:02:00 Galo, Gr isael Holloway [facility] POCT GLUCOSE (AUTOMATED) 2022-05-14 18:02:00 Galo, Gr isael Holloway [facility] POCT GLUCOSE (AUTOMATED) 2022-05-14 15:41:00 Galo, Gr isael Holloway [facility] POCT GLUCOSE (AUTOMATED) 2022-05-14 15:41:00 Glao, Gr isael Holloway [facility] POCT GLUCOSE (AUTOMATED) 2022-05-14 15:41:00 Galo, Gr isael Holloway [facility] HB ECG ROUTINE & RHYTHM STRIP 2022-05-14 13:51:11 Debora [facility] HB ECG ROUTINE & RHYTHM STRIP 2022-05-14 13:51:11 Jossie [facility] BASIC METABOLIC PANEL (NA, K, CL, CO2, GLUCOSE, BUN, CREATININE, CA) 2022-05-14 11:53:00 Chris Zapata [facility] CBC WITH DIFF 2022-05-14 11:53:00 Chris Zapata [facility] PHOSPHORUS 2022-05-14 11:53:00 Chris Zapata [facility] MAGNESIUM 2022-05-14 11:53:00 Chris Zapata [facility] BASIC METABOLIC PANEL (NA, K, CL, CO2, GLUCOSE, BUN, CREATININE, CA) 2022-05-14 11:53:00 Chris Zapata [facility] CBC WITH DIFF 2022-05-14 11:53:00 Chris Zapata [facility] CBC WITH DIFF 2022-05-14 11:53:00 Chris Zapata [facility] PHOSPHORUS 2022-05-14 11:53:00 Chris Zapata [facility] MAGNESIUM 2022-05-14 11:53:00 Chris Zapata [facility] BASIC METABOLIC PANEL (NA, K, CL, CO2, GLUCOSE, BUN, CREATININE, CA) 2022-05-14 11:53:00 Chris Zapata [facility] PHOSPHORUS 2022-05-14 11:53:00 Chris Zapata [facility] MAGNESIUM 2022-05-14 11:53:00 Chris Zapata [facility] POCT GLUCOSE (AUTOMATED) 2022-05-14 03:19:00 Jimmy Rosenthal [facility] POCT GLUCOSE (AUTOMATED) 2022-05-14 03:19:00 Jimmy Rosenthal [facility] POCT GLUCOSE (AUTOMATED) 2022-05-14 03:19:00 Jimmy Rosenthal [facility] POCT GLUCOSE (AUTOMATED) 2022-05-13 23:23:00 Jimmy Rosenthal [facility] POCT GLUCOSE (AUTOMATED) 2022-05-13 23:23:00 Jimmy Rosenthal [facility] POCT GLUCOSE (AUTOMATED) 2022-05-13 23:23:00 Jimmy Rosenthal [facility] HEPATITIS B SURFACE ANTIBODY 2022-05-13 21:41:00 Chris Zapata [facility] HEPATITIS B SURFACE ANTIGEN 2022-05-13 21:41:00 Benny Chris [facility] HCV ANTIBODY 2022-05-13 21:41:00 Chris Zapata [facility] HBC ANTIBODY (IGM & IGG) 2022-05-13 21:41:00 Adri Zapata and [facility] HCV ANTIBODY 2022-05-13 21:41:00 Chris Zapata [facility] HEPATITIS B SURFACE ANTIBODY 2022-05-13 21:41:00 Chris Zapata [facility] HEPATITIS B SURFACE ANTIGEN 2022-05-13 21:41:00 Chris Zapata [facility] HBC ANTIBODY (IGM & IGG) 2022-05-13 21:41:00 Adri Zapata and [facility] HEPATITIS B SURFACE ANTIBODY 2022-05-13 21:41:00 Benny Chris [facility] HEPATITIS B SURFACE ANTIGEN 2022-05-13 21:41:00 Benny Chris [facility] HCV ANTIBODY 2022-05-13 21:41:00 Chris Zapata [facility] HBC ANTIBODY (IGM & IGG) 2022-05-13 21:41:00 Adri Zapata and [facility] POCT GLUCOSE (AUTOMATED) 2022-05-13 18:27:00 Galo, Jimmy Holloway [facility] POCT GLUCOSE (AUTOMATED) 2022-05-13 18:27:00 Galo, Gr isael Holloway [facility] POCT GLUCOSE (AUTOMATED) 2022-05-13 18:27:00 Galo, Jimmy Holloway [facility] POCT GLUCOSE (AUTOMATED) 2022-05-13 15:18:00 Galo, Gr isael Holloway [facility] POCT GLUCOSE (AUTOMATED) 2022-05-13 15:18:00 Galo, Jimmy Holloway [facility] POCT GLUCOSE (AUTOMATED) 2022-05-13 15:18:00 Galo, Jimmy Holloway [facility] HB ECG ROUTINE & RHYTHM STRIP 2022-05-13 14:39:56 [facility] HB ECG ROUTINE & RHYTHM STRIP 2022-05-13 14:39:56 [facility] HB ECG ROUTINE & RHYTHM STRIP 2022-05-13 14:39:56 [facility] MAGNESIUM 2022-05-13 11:38:00 Chris Zapata [facility] BASIC METABOLIC PANEL (NA, K, CL, CO2, GLUCOSE, BUN, CREATININE, CA) 2022-05-13 11:38:00 Chris Zapata [facility] MAGNESIUM 2022-05-13 11:38:00 Chris Zapata [facility] BASIC METABOLIC PANEL (NA, K, CL, CO2, GLUCOSE, BUN, CREATININE, CA) 2022-05-13 11:38:00 Chris Zapata [facility] MAGNESIUM 2022-05-13 11:38:00 Chris Zapata [facility] BASIC METABOLIC PANEL (NA, K, CL, CO2, GLUCOSE, BUN, CREATININE, CA) 2022-05-13 11:38:00 Chris Zapata [facility] POCT GLUCOSE (AUTOMATED) 2022-05-13 06:44:00 Galo, Jimmy Holloway [facility] POCT GLUCOSE (AUTOMATED) 2022-05-13 06:44:00 Galo, Jimmy Holloway [facility] POCT GLUCOSE (AUTOMATED) 2022-05-13 06:44:00 Galo, Jimmy Holloway [facility] POCT GLUCOSE (AUTOMATED) 2022-05-13 02:58:00 Galo, Jimmy Holloway [facility] POCT GLUCOSE (AUTOMATED) 2022-05-13 02:58:00 Galo, Jimmy Holloway [facility] POCT GLUCOSE (AUTOMATED) 2022-05-13 02:58:00 Galo, Jimmy Holloway [facility] POCT GLUCOSE (AUTOMATED) 2022-05-13 00:41:00 Galo, Jimmy Holloway [facility] POCT GLUCOSE (AUTOMATED) 2022-05-13 00:41:00 Galo, Jimmy Holloway [facility] POCT GLUCOSE (AUTOMATED) 2022-05-13 00:41:00 Galo, Jimmy Holloway [facility] POCT GLUCOSE (AUTOMATED) 2022-05-12 17:40:00 Galo, Jimmy Holloway [facility] POCT GLUCOSE (AUTOMATED) 2022-05-12 17:40:00 Galo, Jimmy Holloway [facility] POCT GLUCOSE (AUTOMATED) 2022-05-12 17:40:00 Galo, Jimmy Holloway [facility] POCT GLUCOSE (AUTOMATED) 2022-05-12 15:36:00 Galo, Jimmy Holloway [facility] POCT GLUCOSE (AUTOMATED) 2022-05-12 15:36:00 Jimmy Rosenthal [facility] POCT GLUCOSE (AUTOMATED) 2022-05-12 15:36:00 Jimmy Rosenthal [facility] HB ECG ROUTINE & RHYTHM STRIP 2022-05-12 14:14:58 Ofelia [facility] HB ECG ROUTINE & RHYTHM STRIP 2022-05-12 14:14:58 Ofelia [facility] HB ECG ROUTINE & RHYTHM STRIP 2022-05-12 14:14:58 Ofelia [facility] PHOSPHORUS 2022-05-12 10:48:00 Yair Lee [facility] MAGNESIUM 2022-05-12 10:48:00 Yair Lee [facility] BASIC METABOLIC PANEL (NA, K, CL, CO2, GLUCOSE, BUN, CREATININE, CA) 2022-05-12 10:48:00 Gilbert Lee [facility] CBC WITH DIFF 2022-05-12 10:48:00 Chris Zapata [facility] PHOSPHORUS 2022-05-12 10:48:00 Yari Lee [facility] BASIC METABOLIC PANEL (NA, K, CL, CO2, GLUCOSE, BUN, CREATININE, CA) 2022-05-12 10:48:00 Gilbert Lee [facility] MAGNESIUM 2022-05-12 10:48:00 Yair Lee [facility] CBC WITH DIFF 2022-05-12 10:48:00 Chris Zapata [facility] PHOSPHORUS 2022-05-12 10:48:00 Yair Lee [facility] MAGNESIUM 2022-05-12 10:48:00 Yair Lee [facility] BASIC METABOLIC PANEL (NA, K, CL, CO2, GLUCOSE, BUN, CREATININE, CA) 2022-05-12 10:48:00 Gilbert Lee [facility] CBC WITH DIFF 2022-05-12 10:48:00 Chris Zapata [facility] POCT GLUCOSE (AUTOMATED) 2022-05-12 02:49:00 Jimmy Rosenthal [facility] POCT GLUCOSE (AUTOMATED) 2022-05-12 02:49:00 Galo, Jimmy isael Amie [facility] POCT GLUCOSE (AUTOMATED) 2022-05-12 02:49:00 Galo, Jimmy Holloway [facility] POCT GLUCOSE (AUTOMATED) 2022-05-11 23:40:00 Galo, Jimmy Holloway [facility] POCT GLUCOSE (AUTOMATED) 2022-05-11 23:40:00 Galo, Jimmy naborjane Holloway [facility] POCT GLUCOSE (AUTOMATED) 2022-05-11 23:40:00 Galo, Jimmy isael Amie [facility] POCT GLUCOSE (AUTOMATED) 2022-05-11 17:37:00 Galo, Jimmy Holloway [facility] POCT GLUCOSE (AUTOMATED) 2022-05-11 17:37:00 Galo, Jimmy isael Amie [facility] POCT GLUCOSE (AUTOMATED) 2022-05-11 17:37:00 Galo, Jimmy Holloway [facility] HB ECG ROUTINE & RHYTHM STRIP 2022-05-11 14:04:51 Ofelia [facility] HB ECG ROUTINE & RHYTHM STRIP 2022-05-11 14:04:51 Ofelia [facility] HB ECG ROUTINE & RHYTHM STRIP 2022-05-11 14:04:51 Ofelia [facility] POCT GLUCOSE (AUTOMATED) 2022-05-11 13:51:00 Galo, Jimmy naborjane Holloway [facility] POCT GLUCOSE (AUTOMATED) 2022-05-11 13:51:00 Galo, Jimmy naborjane Holloway [facility] POCT GLUCOSE (AUTOMATED) 2022-05-11 13:51:00 Galo, Jimmy Holloway [facility] PHOSPHORUS 2022-05-11 11:21:00 Chris Zapata [facility] MAGNESIUM 2022-05-11 11:21:00 Chris Zapata [facility] BASIC METABOLIC PANEL (NA, K, CL, CO2, GLUCOSE, BUN, CREATININE, CA) 2022-05-11 11:21:00 Chris Zapata [facility] CBC WITH DIFF 2022-05-11 11:21:00 Chris Zapata [facility] CBC WITH DIFF 2022-05-11 11:21:00 Chris Zapata [facility] PHOSPHORUS 2022-05-11 11:21:00 Chris Zapata [facility] MAGNESIUM 2022-05-11 11:21:00 Chris Zapata [facility] BASIC METABOLIC PANEL (NA, K, CL, CO2, GLUCOSE, BUN, CREATININE, CA) 2022-05-11 11:21:00 Chris Zapata [facility] PHOSPHORUS 2022-05-11 11:21:00 Chris Zapata [facility] MAGNESIUM 2022-05-11 11:21:00 Benny Chris [facility] BASIC METABOLIC PANEL (NA, K, CL, CO2, GLUCOSE, BUN, CREATININE, CA) 2022-05-11 11:21:00 Benny Chris [facility] CBC WITH DIFF 2022-05-11 11:21:00 Chris Zapata [facility] POCT GLUCOSE (AUTOMATED) 2022-05-11 01:49:00 Galo, Jimmy Holloway [facility] POCT GLUCOSE (AUTOMATED) 2022-05-11 01:49:00 Galo, Jimmy Holloway [facility] POCT GLUCOSE (AUTOMATED) 2022-05-11 01:49:00 Galo, Jmimy Holloway [facility] POCT GLUCOSE (AUTOMATED) 2022-05-10 23:35:00 Galo, Jimmy Holloway [facility] POCT GLUCOSE (AUTOMATED) 2022-05-10 23:35:00 Galo, Gr isael Holloway [facility] POCT GLUCOSE (AUTOMATED) 2022-05-10 23:35:00 Galo, Gr isael Holloway [facility] POCT GLUCOSE (AUTOMATED) 2022-05-10 17:55:00 Galo, Gr isael Holloway [facility] POCT GLUCOSE (AUTOMATED) 2022-05-10 17:55:00 Galo, Gr isael Holloway [facility] POCT GLUCOSE (AUTOMATED) 2022-05-10 17:55:00 Galo, Gr isael Holloway [facility] COMPLETE ECHOCARDIOGRAM DOBUTAMINE STRESS TEST W CONTRAST 2022-05-10 16:01:46 [facility] COMPLETE ECHOCARDIOGRAM DOBUTAMINE STRESS TEST W CONTRAST 2022-05-10 16:01:46 [facility] COMPLETE ECHOCARDIOGRAM DOBUTAMINE STRESS TEST W CONTRAST 2022-05-10 16:01:46 [facility] POCT GLUCOSE (AUTOMATED) 2022-05-10 14:17:00 Galo, Gr isael Holloway [facility] POCT GLUCOSE (AUTOMATED) 2022-05-10 14:17:00 Galo, Gr isael Holloway [facility] POCT GLUCOSE (AUTOMATED) 2022-05-10 14:17:00 Jimmy Rosenthal [facility] PHOSPHORUS 2022-05-10 09:53:00 [facility] MAGNESIUM 2022-05-10 09:53:00 Amjennifer [facility] BASIC METABOLIC PANEL (NA, K, CL, CO2, GLUCOSE, BUN, CREATININE, CA) 2022-05-10 09:53:00 [facility] CBC WITH DIFF 2022-05-10 09:53:00 [facility] CBC WITH DIFF 2022-05-10 09:53:00 [facility] BASIC METABOLIC PANEL (NA, K, CL, CO2, GLUCOSE, BUN, CREATININE, CA) 2022-05-10 09:53:00 [facility] MAGNESIUM 2022-05-10 09:53:00 [facility] PHOSPHORUS 2022-05-10 09:53:00 [facility] PHOSPHORUS 2022-05-10 09:53:00 [facility] MAGNESIUM 2022-05-10 09:53:00 [facility] BASIC METABOLIC PANEL (NA, K, CL, CO2, GLUCOSE, BUN, CREATININE, CA) 2022-05-10 09:53:00 [facility] CBC WITH DIFF 2022-05-10 09:53:00 Dionejennifer Kingsamie Aleman [facility] DOBUTAMINE STRESS ECHO 2022-05-10 06:01:00 Docto r Unassigned, [place] [facility] POCT GLUCOSE (AUTOMATED) 2022-05-10 02:07:00 Galo, Jimmy Holloway [facility] POCT GLUCOSE (AUTOMATED) 2022-05-10 02:07:00 Galo, Gr isael Holloway [facility] POCT GLUCOSE (AUTOMATED) 2022-05-10 02:07:00 Galo, Gr isael Holloway [facility] POCT GLUCOSE (AUTOMATED) 2022-05-09 22:32:00 Galo, Gr isael Holloway [facility] POCT GLUCOSE (AUTOMATED) 2022-05-09 22:32:00 Galo, Gr naborjane Holloway [facility] POCT GLUCOSE (AUTOMATED) 2022-05-09 22:32:00 Galo, Jimmy Holloway [facility] POCT GLUCOSE (AUTOMATED) 2022-05-09 18:08:00 Galo, Gr isael Holloway [facility] POCT GLUCOSE (AUTOMATED) 2022-05-09 18:08:00 Galo, Gr naborjane Holloway [facility] POCT GLUCOSE (AUTOMATED) 2022-05-09 18:08:00 Galo, Gr naborjane Holloway [facility] POCT GLUCOSE (AUTOMATED) 2022-05-09 14:49:00 Galo, Jimmy Holloway [facility] POCT GLUCOSE (AUTOMATED) 2022-05-09 14:49:00 Galo, Jimmy naborjane Holloway [facility] POCT GLUCOSE (AUTOMATED) 2022-05-09 14:49:00 Galo, Gr isael Holloway [facility] HB ECG ROUTINE & RHYTHM STRIP 2022-05-09 14:48:56 Ofelia [facility] HB ECG ROUTINE & RHYTHM STRIP 2022-05-09 14:48:56 Ofelia [facility] HB ECG ROUTINE & RHYTHM STRIP 2022-05-09 14:48:56 Olena Gilbert [facility] PHOSPHORUS 2022-05-09 10:14:00 Yair Lee [facility] MAGNESIUM 2022-05-09 10:14:00 Yair Lee gudelia [facility] BASIC METABOLIC PANEL (NA, K, CL, CO2, GLUCOSE, BUN, CREATININE, CA) 2022-05-09 10:14:00 Gilbert Lee Rhoda [facility] PHOSPHORUS 2022-05-09 10:14:00 Yair Lee gudelia Loza [facility] MAGNESIUM 2022-05-09 10:14:00 Yair Lee gudelia [facility] BASIC METABOLIC PANEL (NA, K, CL, CO2, GLUCOSE, BUN, CREATININE, CA) 2022-05-09 10:14:00 Gilbert Lee Rhoda [facility] PHOSPHORUS 2022-05-09 10:14:00 Yair Lee gudelia [facility] MAGNESIUM 2022-05-09 10:14:00 Yair Lee gudelia [facility] BASIC METABOLIC PANEL (NA, K, CL, CO2, GLUCOSE, BUN, CREATININE, CA) 2022-05-09 10:14:00 Gilbert Lee [facility] POCT GLUCOSE (AUTOMATED) 2022-05-09 03:15:00 GaloJimmy [facility] POCT GLUCOSE (AUTOMATED) 2022-05-09 03:15:00 GaloJimmy [facility] POCT GLUCOSE (AUTOMATED) 2022-05-09 03:15:00 GaloJimmy [facility] POCT GLUCOSE (AUTOMATED) 2022-05-08 23:13:00 GaloJimmy [facility] POCT GLUCOSE (AUTOMATED) 2022-05-08 23:13:00 GaloJimmy [facility] POCT GLUCOSE (AUTOMATED) 2022-05-08 23:13:00 Jimmy Rosenthal [facility] HEPATITIS B SURFACE ANTIBODY 2022-05-08 21:20:00 Angeles Ferrer [facility] HEPATITIS B SURFACE ANTIBODY 2022-05-08 21:20:00 Angeles Ferrer [facility] HEPATITIS B SURFACE ANTIBODY 2022-05-08 21:20:00 Angeles Ferrer [facility] POCT GLUCOSE (AUTOMATED) 2022-05-08 18:06:00 Galo, Jimmy Holloway [facility] POCT GLUCOSE (AUTOMATED) 2022-05-08 18:06:00 Galo, Gr isael Holloway [facility] POCT GLUCOSE (AUTOMATED) 2022-05-08 18:06:00 Galo, Gr isael Holloway [facility] POCT GLUCOSE (AUTOMATED) 2022-05-08 15:23:00 Galo, Gr isael Holloway [facility] POCT GLUCOSE (AUTOMATED) 2022-05-08 15:23:00 Galo, Gr isael Holloway [facility] POCT GLUCOSE (AUTOMATED) 2022-05-08 15:23:00 Galo, Gr isael Holloway [facility] PHOSPHORUS 2022-05-08 12:30:00 Chris Zapata [facility] MAGNESIUM 2022-05-08 12:30:00 Chris Zapata [facility] BASIC METABOLIC PANEL (NA, K, CL, CO2, GLUCOSE, BUN, CREATININE, CA) 2022-05-08 12:30:00 Benny Chris [facility] CBC WITH DIFF 2022-05-08 12:30:00 Chris Zapata [facility] HEPATITIS B SURFACE ANTIGEN 2022-05-08 12:30:00 Angeles Ferrer [facility] CBC WITH DIFF 2022-05-08 12:30:00 Chris Zapata [facility] PHOSPHORUS 2022-05-08 12:30:00 Benny Chris [facility] MAGNESIUM 2022-05-08 12:30:00 Benny Chris [facility] BASIC METABOLIC PANEL (NA, K, CL, CO2, GLUCOSE, BUN, CREATININE, CA) 2022-05-08 12:30:00 Benny Chris [facility] HEPATITIS B SURFACE ANTIGEN 2022-05-08 12:30:00 Angeles Ferrer [facility] PHOSPHORUS 2022-05-08 12:30:00 Chris Zapata [facility] MAGNESIUM 2022-05-08 12:30:00 Benny Chris [facility] BASIC METABOLIC PANEL (NA, K, CL, CO2, GLUCOSE, BUN, CREATININE, CA) 2022-05-08 12:30:00 Chris Zapata [facility] CBC WITH DIFF 2022-05-08 12:30:00 Chris Zapata [facility] HEPATITIS B SURFACE ANTIGEN 2022-05-08 12:30:00 Angeles Ferrer [facility] POCT GLUCOSE (AUTOMATED) 2022-05-08 04:37:00 Galo, Jimmy Holloway [facility] POCT GLUCOSE (AUTOMATED) 2022-05-08 04:37:00 Aglo, Jimmy Holloway [facility] POCT GLUCOSE (AUTOMATED) 2022-05-08 04:37:00 Galo, Jimmy Holloway [facility] POCT GLUCOSE (AUTOMATED) 2022-05-07 23:08:00 Galo, Jimmy Holloway [facility] POCT GLUCOSE (AUTOMATED) 2022-05-07 23:08:00 GaloJimmy [facility] POCT GLUCOSE (AUTOMATED) 2022-05-07 23:08:00 Galo, Jimmy Holloway [facility] XR CHEST 1 VW 2022-05-07 21:58:08 Chris Zapata [facility] XR CHEST 1 VW 2022-05-07 21:58:08 Chris Zapata [facility] XR CHEST 1 VW 2022-05-07 21:58:08 Chris Zapata [facility] POCT GLUCOSE (AUTOMATED) 2022-05-07 18:49:00 Galo, Jimmy Holloway [facility] POCT GLUCOSE (AUTOMATED) 2022-05-07 18:49:00 Galo, Jimmy Holloway [facility] POCT GLUCOSE (AUTOMATED) 2022-05-07 18:49:00 Galo, Jimmy Holloway [facility] POCT GLUCOSE (AUTOMATED) 2022-05-07 14:33:00 Galo, Jimmy Holloway [facility] POCT GLUCOSE (AUTOMATED) 2022-05-07 14:33:00 Galo, Jimmy Holloway [facility] POCT GLUCOSE (AUTOMATED) 2022-05-07 14:33:00 Jimmy Rosenthal [facility] HB ECG ROUTINE & RHYTHM STRIP 2022-05-07 13:33:50 Ofelia [facility] HB ECG ROUTINE & RHYTHM STRIP 2022-05-07 13:33:50 Ofelia [facility] HB ECG ROUTINE & RHYTHM STRIP 2022-05-07 13:33:50 Ofelia [facility] PHOSPHORUS 2022-05-07 12:04:00 Benny Chris [facility] MAGNESIUM 2022-05-07 12:04:00 Benny [facility] BASIC METABOLIC PANEL (NA, K, CL, CO2, GLUCOSE, BUN, CREATININE, CA) 2022-05-07 12:04:00 Benny [facility] MAGNESIUM 2022-05-07 12:04:00 Benny [facility] BASIC METABOLIC PANEL (NA, K, CL, CO2, GLUCOSE, BUN, CREATININE, CA) 2022-05-07 12:04:00 Benny [facility] PHOSPHORUS 2022-05-07 12:04:00 Benny [facility] PHOSPHORUS 2022-05-07 12:04:00 Benny Chris [facility] MAGNESIUM 2022-05-07 12:04:00 Benny [facility] BASIC METABOLIC PANEL (NA, K, CL, CO2, GLUCOSE, BUN, CREATININE, CA) 2022-05-07 12:04:00 Benny [facility] CBC WITH DIFF 2022-05-07 12:03:00 Benny Chris [facility] CBC WITH DIFF 2022-05-07 12:03:00 Benny [facility] CBC WITH DIFF 2022-05-07 12:03:00 Benny Chris [facility] POCT GLUCOSE (AUTOMATED) 2022-05-07 05:22:00 Jimmy Rosenthal [facility] POCT GLUCOSE (AUTOMATED) 2022-05-07 05:22:00 Jimmy Rosenthal [facility] POCT GLUCOSE (AUTOMATED) 2022-05-07 05:22:00 Galo, Gr isael Holloway [facility] POCT GLUCOSE (AUTOMATED) 2022-05-07 00:17:00 Galo, Jimmy isael Holloway [facility] POCT GLUCOSE (AUTOMATED) 2022-05-07 00:17:00 Galo, Jimmy isael Holloway [facility] POCT GLUCOSE (AUTOMATED) 2022-05-07 00:17:00 Galo, Jimmy isael Holloway [facility] POCT GLUCOSE (AUTOMATED) 2022-05-06 19:46:00 Galo, Gr isael Holloway [facility] POCT GLUCOSE (AUTOMATED) 2022-05-06 19:46:00 Galo, Jimmy siael Holloway [facility] POCT GLUCOSE (AUTOMATED) 2022-05-06 19:46:00 Galo, Jimmy isael Holloway [facility] POCT GLUCOSE (AUTOMATED) 2022-05-06 17:59:00 Galo, Jimmy isael Holloway [facility] POCT GLUCOSE (AUTOMATED) 2022-05-06 17:59:00 Galo, Jimmy isael Holloway [facility] POCT GLUCOSE (AUTOMATED) 2022-05-06 17:59:00 Galo, Jimmy isael Holloway [facility] POCT GLUCOSE (AUTOMATED) 2022-05-06 14:20:00 Galo, Jimmy isael Holloway [facility] POCT GLUCOSE (AUTOMATED) 2022-05-06 14:20:00 Galo, Jimmy isael Holloway [facility] POCT GLUCOSE (AUTOMATED) 2022-05-06 14:20:00 Galo, Jimmy isael Amie [facility] HB ECG ROUTINE & RHYTHM STRIP 2022-05-06 13:35:32 Ofelia [facility] HB ECG ROUTINE & RHYTHM STRIP 2022-05-06 13:35:32 Ofelia [facility] HB ECG ROUTINE & RHYTHM STRIP 2022-05-06 13:35:32 Ofelia [facility] PHOSPHORUS 2022-05-06 12:05:00 Chris Zapata [facility] MAGNESIUM 2022-05-06 12:05:00 Chris Zapata [facility] BASIC METABOLIC PANEL (NA, K, CL, CO2, GLUCOSE, BUN, CREATININE, CA) 2022-05-06 12:05:00 Chris Zapata [facility] CBC WITH DIFF 2022-05-06 12:05:00 Crhis Zapata [facility] CBC WITH DIFF 2022-05-06 12:05:00 Chris Zapata [facility] PHOSPHORUS 2022-05-06 12:05:00 Chris Zapata [facility] MAGNESIUM 2022-05-06 12:05:00 Benny Chris [facility] BASIC METABOLIC PANEL (NA, K, CL, CO2, GLUCOSE, BUN, CREATININE, CA) 2022-05-06 12:05:00 Chris Zapata [facility] PHOSPHORUS 2022-05-06 12:05:00 Chris Zapata [facility] MAGNESIUM 2022-05-06 12:05:00 Chris Zapata [facility] BASIC METABOLIC PANEL (NA, K, CL, CO2, GLUCOSE, BUN, CREATININE, CA) 2022-05-06 12:05:00 Chris Zapata [facility] CBC WITH DIFF 2022-05-06 12:05:00 Chris Zapata [facility] POCT GLUCOSE (AUTOMATED) 2022-05-06 04:41:00 Galo, Jimmy Holloway [facility] POCT GLUCOSE (AUTOMATED) 2022-05-06 04:41:00 Galo, Jimmy Holloway [facility] POCT GLUCOSE (AUTOMATED) 2022-05-06 04:41:00 Galo, Jimmy Holloway [facility] POCT GLUCOSE (AUTOMATED) 2022-05-05 22:57:00 Galo, Jimmy Holloway [facility] POCT GLUCOSE (AUTOMATED) 2022-05-05 22:57:00 Galo, Jimmy Holloway [facility] POCT GLUCOSE (AUTOMATED) 2022-05-05 22:57:00 GaloJimmy [facility] POCT GLUCOSE (AUTOMATED) 2022-05-05 18:27:00 Galo, Jimmy Holloway [facility] POCT GLUCOSE (AUTOMATED) 2022-05-05 18:27:00 Galo, Gr isael Holloway [facility] POCT GLUCOSE (AUTOMATED) 2022-05-05 18:27:00 Galo, Gr isael Holloway [facility] POCT GLUCOSE (AUTOMATED) 2022-05-05 14:20:00 Galo, Gr isael Holloway [facility] POCT GLUCOSE (AUTOMATED) 2022-05-05 14:20:00 Galo, Gr isael Holloway [facility] POCT GLUCOSE (AUTOMATED) 2022-05-05 14:20:00 Galo, Gr isael Holloway [facility] HB ECG ROUTINE & RHYTHM STRIP 2022-05-05 14:12:39 Ofelia [facility] HB ECG ROUTINE & RHYTHM STRIP 2022-05-05 14:12:39 Ofelia [facility] HB ECG ROUTINE & RHYTHM STRIP 2022-05-05 14:12:39 Ofelia [facility] PHOSPHORUS 2022-05-05 11:13:00 Chris Zapata [facility] MAGNESIUM 2022-05-05 11:13:00 Chris Zapata [facility] BASIC METABOLIC PANEL (NA, K, CL, CO2, GLUCOSE, BUN, CREATININE, CA) 2022-05-05 11:13:00 Benny Chris [facility] CBC WITH DIFF 2022-05-05 11:13:00 Chris Zapata [facility] N-TERMINAL PRO-BNP 2022-05-05 11:13:00 Chris Zapata [facility] CBC WITH DIFF 2022-05-05 11:13:00 Chris Zapata [facility] PHOSPHORUS 2022-05-05 11:13:00 Chris Zapata [facility] MAGNESIUM 2022-05-05 11:13:00 Chris Zapata [facility] BASIC METABOLIC PANEL (NA, K, CL, CO2, GLUCOSE, BUN, CREATININE, CA) 2022-05-05 11:13:00 Benny Chirs [facility] N-TERMINAL PRO-BNP 2022-05-05 11:13:00 Chris Zapata [facility] PHOSPHORUS 2022-05-05 11:13:00 Chris Zapata [facility] MAGNESIUM 2022-05-05 11:13:00 Chris Zapata [facility] BASIC METABOLIC PANEL (NA, K, CL, CO2, GLUCOSE, BUN, CREATININE, CA) 2022-05-05 11:13:00 Chris Zapata [facility] CBC WITH DIFF 2022-05-05 11:13:00 Chris Zapata [facility] N-TERMINAL PRO-BNP 2022-05-05 11:13:00 [facility] 2022-05-05 02:47:00 Galo, Jimmy Holloway [facility] POCT GLUCOSE (AUTOMATED) 2022-05-05 02:47:00 Galo, Jimmy Holloway [facility] POCT GLUCOSE (AUTOMATED) 2022-05-05 02:47:00 Galo, Jimmy Holloway [facility] POCT GLUCOSE (AUTOMATED) 2022-05-04 23:29:00 Galo, Jimmy Holloway [facility] POCT GLUCOSE (AUTOMATED) 2022-05-04 23:29:00 Galo, Jimmy Holloway [facility] POCT GLUCOSE (AUTOMATED) 2022-05-04 23:29:00 Galo, Jimmy Holloway [facility] POCT GLUCOSE (AUTOMATED) 2022-05-04 18:27:00 Galo, Jimym Holloway [facility] POCT GLUCOSE (AUTOMATED) 2022-05-04 18:27:00 Galo, Jimmy Holloway [facility] POCT GLUCOSE (AUTOMATED) 2022-05-04 18:27:00 Galo, Jimmy Holloway [facility] POCT GLUCOSE (AUTOMATED) 2022-05-04 14:48:00 Galo, Jimmy Holloway [facility] POCT GLUCOSE (AUTOMATED) 2022-05-04 14:48:00 Galo, Jimmy Holloway [facility] POCT GLUCOSE (AUTOMATED) 2022-05-04 14:48:00 Galo, Jimmy Holloway [facility] HB ECG ROUTINE & RHYTHM STRIP 2022-05-04 14:44:54 Gilbert, [facility] HB ECG ROUTINE & RHYTHM STRIP 2022-05-04 14:44:54 Ofelia [facility] HB ECG ROUTINE & RHYTHM STRIP 2022-05-04 14:44:54 Ofelia [facility] PHOSPHORUS 2022-05-04 09:26:00 Chris Zapata [facility] MAGNESIUM 2022-05-04 09:26:00 Benny [facility] BASIC METABOLIC PANEL (NA, K, CL, CO2, GLUCOSE, BUN, CREATININE, CA) 2022-05-04 09:26:00 Benny [facility] CBC WITH DIFF 2022-05-04 09:26:00 Benny Chris [facility] CBC WITH DIFF 2022-05-04 09:26:00 Benny Chris [facility] PHOSPHORUS 2022-05-04 09:26:00 Benny Chris [facility] MAGNESIUM 2022-05-04 09:26:00 Benny [facility] BASIC METABOLIC PANEL (NA, K, CL, CO2, GLUCOSE, BUN, CREATININE, CA) 2022-05-04 09:26:00 Benny [facility] PHOSPHORUS 2022-05-04 09:26:00 Benny [facility] MAGNESIUM 2022-05-04 09:26:00 Benny [facility] BASIC METABOLIC PANEL (NA, K, CL, CO2, GLUCOSE, BUN, CREATININE, CA) 2022-05-04 09:26:00 Benny [facility] CBC WITH DIFF 2022-05-04 09:26:00 Benny Chris [facility] POCT GLUCOSE (AUTOMATED) 2022-05-04 03:12:00 Jimmy Rosenthal [facility] POCT GLUCOSE (AUTOMATED) 2022-05-04 03:12:00 Jimmy Rosenthal [facility] POCT GLUCOSE (AUTOMATED) 2022-05-04 03:12:00 Jimmy Rosenthal [facility] POCT GLUCOSE (AUTOMATED) 2022-05-03 23:02:00 Galo, Gr isael Amie [facility] POCT GLUCOSE (AUTOMATED) 2022-05-03 23:02:00 Galo, Gr isael Amie [facility] POCT GLUCOSE (AUTOMATED) 2022-05-03 23:02:00 Galo, Gr isael Amie [facility] POCT GLUCOSE (AUTOMATED) 2022-05-03 18:17:00 Galo, Gr isael Amie [facility] POCT GLUCOSE (AUTOMATED) 2022-05-03 18:17:00 Galo, Gr isael Amie [facility] POCT GLUCOSE (AUTOMATED) 2022-05-03 18:17:00 Galo, Jimmy Holloway [facility] TRANSTHORACIC ECHO (TTE) COMPLETE W/ CONTRAST 2022-05-03 17:55:00 Oeflia [facility] TRANSTHORACIC ECHO (TTE) COMPLETE W/ CONTRAST 2022-05-03 17:55:00 Ofelia [facility] TRANSTHORACIC ECHO (TTE) COMPLETE W/ CONTRAST 2022-05-03 17:55:00 Ofelia [facility] HB ECG ROUTINE & RHYTHM STRIP 2022-05-03 16:14:16 [facility] HB ECG ROUTINE & RHYTHM STRIP 2022-05-03 16:14:16 [facility] HB ECG ROUTINE & RHYTHM STRIP 2022-05-03 16:14:16 [facility] POCT GLUCOSE (AUTOMATED) 2022-05-03 14:18:00 Galo, Jimmy Holloway [facility] POCT GLUCOSE (AUTOMATED) 2022-05-03 14:18:00 Galo, Jimmy Holloway [facility] POCT GLUCOSE (AUTOMATED) 2022-05-03 14:18:00 Galo, Jimmy Holloway [facility] PHOSPHORUS 2022-05-03 07:40:00 Gerardo Pfeiffer [facility] MAGNESIUM 2022-05-03 07:40:00 Kentrell [facility] COMP. METABOLIC PANEL (35322) 2022-05-03 07:40:00 Kentrell [facility] INTACT PTH CALCIUM GROUP 2022-05-03 07:40:00 Adri Zapata and [facility] INTACT PTH CALCIUM GROUP 2022-05-03 07:40:00 Adri Zapata and [facility] MAGNESIUM 2022-05-03 07:40:00 [facility]. METABOLIC PANEL ([id number]) 2022-05-03 07:40:00 Kentrell [facility] PHOSPHORUS 2022-05-03 07:40:[facility] 2022-05-03 07:40:00 [facility] 2022-05-03 07:40:00 [facility] COMP. METABOLIC PANEL ([id number]) 2022-05-03 07:40:00 Kentrell [facility] INTACT PTH CALCIUM GROUP 2022-05-03 07:40:00 Adri Zapata and [facility] ACUTE CARE ARTERIAL BLOOD GAS 2022-05-03 07:39:00 Ofelia [facility] ACUTE CARE ARTERIAL BLOOD GAS 2022-05-03 07:39:[facility] 2022-05-03 07:39:00 [facility] PO[facility]SE (AUTOMATED) 2022-05-03 03:30:00 GaloJimmy [facility] POCT GLUCOSE (AUTOMATED) 2022-05-03 03:30:00 GaloJimmy [facility] POCT GLUCOSE (AUTOMATED) 2022-05-03 03:30:00 GaloJimmy [facility] POCT GLUCOSE (AUTOMATED) 2022-05-03 00:04:00 Jimmy Rosenthal [facility] POCT GLUCOSE (AUTOMATED) 2022-05-03 00:04:00 GaloJimmy [facility] POCT GLUCOSE (AUTOMATED) 2022-05-03 00:04:00 GaloJimmy [facility] AC PANEL 20 + LACTIC ACID 2022-05-02 21:58:00 Brandy Pfeiffer [facility] AC PANEL 20 + LACTIC ACID 2022-05-02 21:58:00 Brandy Pfeiffer [facility] AC PANEL 20 + LACTIC ACID 2022-05-02 21:58:00 Brandy Pfeiffer nyjudie [facility] POCT GLUCOSE (AUTOMATED) 2022-05-02 19:36:00 Galo, Gr egory E [facility] POCT GLUCOSE (AUTOMATED) 2022-05-02 19:36:00 Galo, Gr egory E [facility] POCT GLUCOSE (AUTOMATED) 2022-05-02 19:36:00 Galo, Gr egjane E [facility] POCT GLUCOSE (AUTOMATED) 2022-05-02 15:21:00 Galo, Gr egjane E [facility] POCT GLUCOSE (AUTOMATED) 2022-05-02 15:21:00 Galo, Gr isael Holloway [facility] POCT GLUCOSE (AUTOMATED) 2022-05-02 15:21:00 Galo, Gr isael E [facility] HB ECG ROUTINE & RHYTHM STRIP 2022-05-02 07:03:46 Ofelia [facility] HB ECG ROUTINE & RHYTHM STRIP 2022-05-02 07:03:46 Ofelia [facility] HB ECG ROUTINE & RHYTHM STRIP 2022-05-02 07:03:46 Ofelia [facility] EXTRA TUBE LAV 2022-05-02 06:09:00 Arash Hillary [facility] EXTRA TUBE LAV 2022-05-02 06:09:00 Arash Hillary [facility] EXTRA TUBE LAV 2022-05-02 06:09:00 Hillary Antoine [facility] ACUTE CARE ARTERIAL BLOOD GAS 2022-05-02 06:08:00 Ofelia [facility] ACUTE CARE ARTERIAL BLOOD GAS 2022-05-02 06:08:00 Ofelia [facility] ACUTE CARE ARTERIAL BLOOD GAS 2022-05-02 06:08:00 Ofelia [facility] PHOSPHORUS 2022-05-02 05:57:00 Olena Gilbert [facility] MAGNESIUM 2022-05-02 05:57:00 Olena Gilbert [facility] TROPONIN I 2022-05-02 05:57:00 Olena Gilbert [facility] BASIC METABOLIC PANEL (NA, K, CL, CO2, GLUCOSE, BUN, CREATININE, CA) 2022-05-02 05:57:00 Ofelia [facility] LIPID PANEL ([id number])(TOTAL CHOLESTEROL, TRIGLYCERIDES, HDL) 2022-05-02 05:57:00 Ofelia [facility] PROTHROMBIN TIME / INR 2022-05-02 05:57:00 Ofelia [facility] ACTIVATED PARTIAL THRMPLAS RUSSELL 2022-05-02 05:57:00 Ofelia [facility] TROPONIN I 2022-05-02 05:57:00 Olena Gilbert [facility] PHOSPHORUS 2022-05-02 05:57:00 [facility] MAGNESIUM 2022-05-02 05:57:00 Olena Gilbert [facility] BASIC METABOLIC PANEL (NA, K, CL, CO2, GLUCOSE, BUN, CREATININE, CA) 2022-05-02 05:57:00 Ofelia [facility] LIPID PANEL ([id number])(TOTAL CHOLESTEROL, TRIGLYCERIDES, HDL) 2022-05-02 05:57:00 Ofelia [facility] PROTHROMBIN TIME / INR 2022-05-02 05:57:00 Ofelia [facility] ACTIVATED PARTIAL THRMPLAS RUSSELL 2022-05-02 05:57:00 Ofelia [facility] PHOSPHORUS 2022-05-02 05:57:00 Olena Gilbert [facility] MAGNESIUM 2022-05-02 05:57:00 Olena Gilbert [facility] TROPONIN I 2022-05-02 05:57:00 Olena Gilbert [facility] BASIC METABOLIC PANEL (NA, K, CL, CO2, GLUCOSE, BUN, CREATININE, CA) 2022-05-02 05:57:00 Ofelia [facility] LIPID PANEL ([id number])(TOTAL CHOLESTEROL, TRIGLYCERIDES, HDL) 2022-05-02 05:57:00 Ofelia [facility] PROTHROMBIN TIME / INR 2022-05-02 05:57:00 Ofelia [facility] ACTIVATED PARTIAL THRMPLAS RUSSELL 2022-05-02 05:57:00 Ofelia [facility] MICROALBUMIN URINE 2022-05-02 05:21:00 [facility]-02 05:21:00 Rj Rosenthal [facility] PROTEIN CREAT RATIO URINE RANDOM 2022-05-02 05:21:00 Benyn Chris [facility] EXTRA TUBE URINE CULTURE 2022-05-02 05:21:00 Viry Antoine [facility] URINALYSIS 2022-05-02 05:21:00 Rj Rosenthal [facility] MICROALBUMIN URINE 2022-05-02 05:21:00 [facility] PROTEIN CREAT RATIO URINE RANDOM 2022-05-02 05:21:00 Benny Chris [facility] EXTRA TUBE URINE CULTURE 2022-05-02 05:21:00 Viry Antoine [facility] MICROALBUMIN URINE 2022-05-02 05:21:00 [facility] 2022-05-02 05:21:00 Rj Rosenthal [facility] PROTEIN CREAT RATIO URINE RANDOM 2022-05-02 05:21:00 Benny Chris [facility] EXTRA TUBE URINE CULTURE 2022-05-02 05:21:00 Viry Antoine [facility] POCT GLUCOSE (AUTOMATED) 2022-05-02 05:10:00 Jimmy Rosenthal [facility] POCT GLUCOSE (AUTOMATED) 2022-05-02 05:10:00 Jimmy Rosenthal [facility] POCT GLUCOSE (AUTOMATED) 2022-05-02 05:10:00 Jimmy Rosenthal [facility] AC PANEL 20 + LACTIC ACID 2022-05-02 03:19:00 Corey kwan [facility] AC PANEL 20 + LACTIC ACID 2022-05-02 03:19:00 Corey y, [facility] AC PANEL 20 + LACTIC ACID 2022-05-02 03:19:00 Corey kwan, [facility] FERRITIN SERUM 2022-05-01 18:35:00 GilbertOlena mojica [facility] TROPONIN I 2022-05-01 18:35:00 Rj Rosenthal [facility] COMP. METABOLIC PANEL ([id number]) 2022-05-01 18:35:00 Rj Rosenthal [facility] IRON PANEL 2022-05-01 18:35:00 [facility] CBC WITH DIFF 2022-05-01 18:35:00 Rj Rosenthal [facility] GLYCOSYLATED HEMOGLOBIN (A1C) 2022-05-01 18:35:00 Ofelia [facility] N-TERMINAL PRO-BNP 2022-05-01 18:35:00 Rj Rosenthal [facility] COMP. METABOLIC PANEL ([id number]) 2022-05-01 18:35:00 Rj Rosenthal [facility] TROPONIN I 2022-05-01 18:35:00 Rj Rosenthal [facility] N-TERMINAL PRO-BNP 2022-05-01 18:35:00 Rj Rosenthal [facility] CBC WITH DIFF 2022-05-01 18:35:00 Rj Rosenthal [facility] GLYCOSYLATED HEMOGLOBIN (A1C) 2022-05-01 18:35:00 Ofelia [facility] FERRITIN SERUM 2022-05-01 18:35:00 Olena Gilbert [facility] IRON PANEL 2022-05-01 18:35:00 Olena Gilbert [facility] FERRITIN SERUM 2022-05-01 18:35:00 Olena Gilbert [facility] TROPONIN I 2022-05-01 18:35:00 Rj Rosenthal [facility] COMP. METABOLIC PANEL ([id number]) 2022-05-01 18:35:00 Rj Rosenthal [facility] IRON PANEL 2022-05-01 18:35:00 Olena Gilbert [facility] CBC WITH DIFF 2022-05-01 18:35:00 Rj Rosenthal [facility] GLYCOSYLATED HEMOGLOBIN (A1C) 2022-05-01 18:35:00 Olena Gilbert [facility] N-TERMINAL PRO-BNP 2022-05-01 18:35:00 Rj Rosenthal [facility] LACTIC ACID WHOLE BLOOD 2022-05-01 18:34:00 Laura Rosenthal [facility] LACTIC ACID WHOLE BLOOD 2022-05-01 18:34:00 Laura Rosenthal [facility] LACTIC ACID WHOLE BLOOD 2022-05-01 18:34:00 Laura Rosenthal [facility] XR CHEST 1 VW 2022-05-01 18:17:19 Rj Rosenthal [facility] XR CHEST 1 VW 2022-05-01 18:17:19 Rj Rosenthal [facility] XR CHEST 1 VW 2022-05-01 18:17:19 Rj Rosenthal [facility] HB ECG ROUTINE & RHYTHM STRIP 2022-05-01 18:09:00 Rj Rosenthal [facility] HB ECG ROUTINE & RHYTHM STRIP 2022-05-01 18:09:00 Rj Rosenthal [facility] HB ECG ROUTINE & RHYTHM STRIP 2022-05-01 18:09:00 Rj Rosenthal [facility] CONSENT/REFUSAL FOR DIAGNOSIS AND TREATMENT 2022-05-01 17:24:37 Doctor Unassigned, [place] [facility] CONSENT/REFUSAL FOR DIAGNOSIS AND TREATMENT 2022-05-01 17:24:37 Doctor Unassigned, [place] [facility] CONSENT/REFUSAL FOR DIAGNOSIS AND TREATMENT 2022-05-01 17:24:37 Doctor Unassigned, [place] [facility] HOSPITAL ADMISSION 2022-05-01 06:01:00 Doctor Un assigned, [place] [facility] HOSPITAL ADMISSION 2022-05-01 06:01:00 Doctor Un assigned, [place] [facility] HOSPITAL ADMISSION 2022-05-01 06:01:00 Doctor Un assigned, [place] [facility] REFERRAL- REQUEST/RESPONSE 2021-11-21 05:01:00 Doctor Unassigned, [place] [facility] PROTEIN URINE, URINALYSIS 2021-05-18 18:05:00 [facility] 2021-05-18 18:01:00 Yara Husain [facility] MAGNESIUM 2021-05-18 18:01:00 [facility] RENAL PANEL 2021-05-18 18:01:00 [facility] CBC WITH DIFF 2021-05-18 18:01:00 Yara Husain [facility] URINALYSIS 2021-05-18 18:01:00 Lisha jose ramon [facility] ASSIGNMENT OF BENEFITS 2021-05-18 17:26:33 Docto r Unassigned, [place] [facility] POCT GLUCOSE (AUTOMATED) 2021-05-04 13:30:00 Karoline Lennon [facility] BASIC METABOLIC PANEL (NA, K, CL, CO2, GLUCOSE, BUN, CREATININE, CA) 2021-05-04 11:17:00 Jeovany Palomo [facility] POCT GLUCOSE (AUTOMATED) 2021-05-04 06:20:00 Karoline Lennon [facility] POCT GLUCOSE (AUTOMATED) 2021-05-04 01:16:00 Karoline Lennon [facility] POCT GLUCOSE (AUTOMATED) 2021-05-03 22:14:00 Karoline Lennon [facility] POCT GLUCOSE (AUTOMATED) 2021-05-03 17:48:00 Karoline Lennon [facility] POCT GLUCOSE (AUTOMATED) 2021-05-03 13:42:00 Karoline Lennon [facility] BASIC METABOLIC PANEL (NA, K, CL, CO2, GLUCOSE, BUN, CREATININE, CA) 2021-05-03 11:13:00 Jeovany Palomo [facility] CBC WITH DIFF 2021-05-03 11:13:00 Jeovany Palomo [facility] N-TERMINAL PRO-BNP 2021-05-03 11:13:00 Jeovany Palomo [facility] POCT GLUCOSE (AUTOMATED) 2021-05-03 10:57:00 Karoline Lennon [facility] POCT GLUCOSE (AUTOMATED) 2021-05-03 06:20:00 Karoline Lennon [facility] POCT GLUCOSE (AUTOMATED) 2021-05-03 02:31:00 Karoline Lennon [facility] POCT GLUCOSE (AUTOMATED) 2021-05-02 22:43:00 Karoline Lennon [facility] POCT GLUCOSE (AUTOMATED) 2021-05-02 17:53:00 Karoline Lennon [facility] XR CHEST 1 VW 2021-05-02 16:59:05 [facility]) 2021-05-02 13:36:00 Karoline Lennon [facility] PHOSPHORUS 2021-05-02 10:23:00 Yara Husain [facility] MAGNESIUM 2021-05-02 10:23:00 [facility] FERRITIN SERUM 2021-05-02 10:23:00 Yara Husain [facility] IRON 2021-05-02 10:23:00 Gaviota Husainbannermarquis [facility] TOTAL IRON BINDING CAPACITY 2021-05-02 10:23:[address] [facility] TROPONIN I 2021-05-02 10:23:00 Jeovany Palomo [facility] THYROID STIMULATING HORMONE 2021-05-02 10:23:[address] [facility] COMP. METABOLIC PANEL ([id number]) 2021-05-02 10:23:00 Jeovany Palomo [facility] CBC WITH DIFF 2021-05-02 10:23:00 Jeovany Palomo [facility] N-TERMINAL PRO-BNP 2021-05-02 10:23:00 Jeovany Palomo [facility] POCT GLUCOSE (AUTOMATED) 2021-05-02 08:06:00 Karoline Lennon [facility] POCT GLUCOSE (AUTOMATED) 2021-05-02 02:38:00 Karoline Lennon [facility] POCT GLUCOSE (AUTOMATED) 2021-05-01 22:14:00 Karoline Lennon [facility] INTACT PTH CALCIUM GROUP 2021-05-01 20:00:00 Reba Husain [facility] VITAMIN D, 25-OH 2021-05-01 20:00:00 [facility] 2021-05-01 19:11:00 Yara Husain [facility] POTASSIUM, URINE RANDOM 2021-05-01 19:11:00 Gaviota Husain [facility] SODIUM, URINE RANDOM 2021-05-01 19:11:00 Karol Husain [facility] PROTEIN CREAT RATIO URINE RANDOM 2021-05-01 19:11:00 Yara Husain [facility] US RETROPERITONEAL COMPLETE 2021-05-01 17:53:56 Yara Husain [facility] POCT GLUCOSE (AUTOMATED) 2021-05-01 17:06:00 Karoline Lennon [facility] ACUTE CARE ARTERIAL BLOOD GAS 2021-05-01 16:46:00 [facility] PO[facility] GLU[facility]SE (AUTOMATED) 2021-05-01 13:37:00 Karoline Lennon [facility] PHOSPHORUS 2021-05-01 11:58:00 Yara Husain [facility] CREATINE KINASE 2021-05-01 11:58:00 [facility]IP[facility] 2021-05-01 11:58:00 Gregory, Aby [facility] MAGNESIUM 2021-05-01 11:58:00 Aby Lennon [facility] TROPONIN I 2021-05-01 11:58:00 Julianna Maza U [facility] HEPATIC FUNCTION PANEL ([id number]) (ALB,T.PRO,BILI T,BU/BC,ALT,AST,ALK PHOS) 2021-05-01 11:58:00 Gregory [facility] BASIC METABOLIC PANEL (NA, K, CL, CO2, GLUCOSE, BUN, CREATININE, CA) 2021-05-01 11:58:00 Gregory [facility] CBC WITH DIFF 2021-05-01 11:58:00 Aby Lennon [facility] N-TERMINAL PRO-BNP 2021-05-01 11:58:00 Julianna Maza [facility] POCT GLUCOSE (AUTOMATED) 2021-05-01 02:41:00 Karoline Lennon [facility] US ABDOMEN LIMITED 2021-04-30 23:43:00 Aby Lennon [facility] POCT GLUCOSE (AUTOMATED) 2021-04-30 23:07:00 Karoline Lennon [facility] GLYCOSYLATED HEMOGLOBIN (A1C) 2021-04-30 22:02:00 Gregory [facility] TROPONIN I 2021-04-30 21:50:00 Aby Lennon [facility] TRANSTHORACIC ECHO (TTE) COMPLETE W/ CONTRAST 2021-04-30 20:37:00 Gregory [facility] ABORH CONFIRMATION (LAB ONLY) 2021-04-30 13:30:00 Jarett [facility] COMP. METABOLIC PANEL ([id number]) 2021-04-30 13:12:00 Jarett [facility] LIPID PANEL ([id number])(TOTAL CHOLESTEROL, TRIGLYCERIDES, HDL) 2021-04-30 13:12:00 Gregory [facility] CRITICAL CARE 2021-04-30 12:46:07 Remy Denson [facility] XR CHEST 1 VW 2021-04-30 12:19:00 Remy Denson [facility] HB ECG ROUTINE & RHYTHM STRIP 2021-04-30 12:07:45 Remy Denson [facility] HB ABO GROUPING 2021-04-30 12:06:00 [facility] WHOLE BLO[facility] 2021-04-30 12:05:00 Do shilpa Denson [facility] BLOOD CULTURE SCREEN 2021-04-30 12:02:00 Lona Denson [facility] LIPASE 2021-04-30 12:01:00 eRmy Denson [facility] TROPONIN I 2021-04-30 12:01:00 Remy Denson [facility] CBC WITH DIFF 2021-04-30 12:01:00 Remy Denson [facility] PROTHROMBIN TIME / INR 2021-04-30 12:01:00 Chencho Denson [facility] ACTIVATED PARTIAL THRMPLAS RUSSELL 2021-04-30 12:01:00 Remy Denson [facility] N-TERMINAL PRO-BNP 2021-04-30 12:01:00 Remy Denson [facility] COVID-19 (ID NOW RAPID TESTING) 2021-04-30 12:01:00 Remy Denson [facility] LAB ONLY COVID INTERPRETATION 2021-04-30 12:01:00 Remy Denson [facility] CONSENT/REFUSAL FOR DIAGNOSIS AND TREATMENT 2021-04-30 11:26:07 Doctor Unassigned, [place] [facility] NOTICE OF PRIVACY PRACTICES 2021-04-30 11:25:36 Doctor Unassigned, [place] [facility] Encounters Start Date/Time End Date/Time Encounter Type Admission Type Attending Clinicians Care Facility Care Department Encounter ID Source 2023-11-23 00:00:00 2023-11-23 06:57:14 Letter (Out) Juana Cosby [facility] [id number] 350.1.13.10 [id number] [id number] [facility] 2023-11-23 00:00:00 2023-11-23 00:00:00 Outpatient R JUANA COSBY [facility] [id number] [facility] 2023-11-22 00:00:00 2023-11-22 15:36:52 Telephone Stephenie Trujillo do [facility] [id number] 350.1.13.10 4.2.7.2.686 [id number] [facility] 2023-09-15 15:31:17 2023-09-15 15:31:17 Outpatient S[facility] [id number] Quinn Schroeder 2023-09-14 16:33:09 2023-09-14 16:33:09 Outpatient SFA SFA [id number] Quinn Schroeder 2023-09-14 00:00:00 2023-09-14 00:00:00 Outpatient Visit SFA [id number] Quinn Schroeder 2023-07-21 17:03:03 2023-07-21 17:03:03 Outpatient SFA SFA [id number] Quinn Schroeder 2023-07-12 13:21:20 2023-07-12 13:21:20 Outpatient SFA SFA [id number] Quinn Schroeder 2023-07-08 08:07:32 2023-07-08 08:07:32 Outpatient SFA SFA [id number] Quinn Schroeder 2023-07-01 09:04:06 2023-07-01 09:04:06 Outpatient SFA SFA [id number] Quinn Schroeder 2023-04-06 16:49:24 2023-04-06 16:49:24 Outpatient SFA SFA [id number] Quinn Schroeder 2023-03-31 09:10:56 2023-03-31 09:10:56 Outpatient SFA SFA [id number] Quinn Schroeder 2023-03-22 09:51:33 2023-03-22 09:51:33 Outpatient SFA SFA [id number] Quinn Schroeder 2023-03-11 08:54:07 2023-03-11 08:54:07 Outpatient [facility] [id number] Quinn Schroeder 2023-03-08 08:38:40 2023-03-08 08:38:40 Outpatient [place] [id number] Quinn Schroeder 2022-12-30 09:34:44 2022-12-30 09:34:44 Outpatient [facility] [id number] Quinn Schroeder 2022-12-28 00:00:00 2022-12-28 00:00:00 Orders Only Doctor Unassigned, [place] [facility] [id number] 350.1.13.10 4.2.7.2.686 [id number] [facility] 2022-12-09 08:24:28 2022-12-09 08:24:28 Outpatient [facility] [id number] Quinn Schroeder 2022-12-07 08:15:14 2022-12-07 08:15:14 Outpatient [facility] [id number] Quinn Schroeder 2022-12-02 00:00:00 2022-12-02 00:00:00 Orders Only Doctor Unassigned, [place] [facility] [id number] 350.1.13.10 4.2.7.2.686 [id number] [facility] 2022-11-30 00:00:00 2022-11-30 00:00:00 Outpatient [facility] [id number] [facility] 2022-11-01 09:01:34 2022-11-01 09:01:34 Outpatient [facility] [id number] Quinn Schroeder 2022-09-28 00:00:00 2022-09-28 00:00:00 Orders Only Doctor Unassigned, [place] [facility] [id number] 350.1.13.10 4.2.7.2.686 [id number] [facility] 2022-09-06 08:26:25 2022-09-06 08:26:25 Outpatient [place] [id number] Quinn Schroeder 2022-09-03 10:40:57 2022-09-03 10:40:57 Outpatient [facility] [id number] Quinn Schroeder 2022-09-01 13:04:32 2022-09-01 13:04:32 Outpatient [facility] [id number] Quinn Schroeder 2022-07-22 00:00:00 2022-07-22 00:00:00 Outpatient [facility] [id number] [facility] 2022-06-22 00:00:00 2022-06-22 00:00:00 Telephone Lisette Mckeon [facility] 1.114 350.1.13.10 4.2.7.2.686 [id number] [facility] 2022-06-10 00:00:00 2022-06-10 00:00:00 Outpatient [facility] [id number] [facility] 2022-06-10 00:00:00 2022-06-10 00:00:00 Orders Only Doctor Unassigned, [place] [facility] 1..114 350.1.13.10 4.2.7.2.686 [id number] [facility] 2022-06-08 08:30:00 2022-06-08 23:59:00 Outpatient R LISETTE MCKEON [facility] [id number] [facility] 2022-06-08 00:00:00 2022-06-08 00:00:00 Orders Only Doctor Unassigned, [place] [facility] 1..114 350.1.13.10 4.2.7.2.686 [id number] [facility] 2022-05-27 00:00:00 2022-05-27 00:00:00 Transition of Care Annabel Valerio 1..114 350.1.13.10 4.2.7.2.686 [id number] [facility] 2022-05-01 11:37:00 2022-05-26 20:43:00 Inpatient X ÓSCAR JOHNSTON, [facility] [id number] [facility] 2022-05-01 11:37:00 2022-05-26 20:43:00 Hospital Encounter Galo, Rj Antoine, Hillary Schultz, [facility] Lisette Johnston [facility] 1.2.840.114 350.1.13.10 4.2.7.2.686 [id number] [facility] 2022-05-17 15:45:00 2022-05-17 16:45:00 [facility] 1.2.840.114 350.1.13.10 4.2.7.2.686 [id number] [facility] 2022-05-01 00:00:00 2022-05-01 00:00:00 Travel 1.2.840.1 [id number] 350.1.13.10 4.2.7.3.698 [id number] [facility] 2022-04-22 09:03:47 2022-04-22 09:03:47 Outpatient [facility] Quinn Schroeder 2022-03-31 10:40:59 2022-03-31 10:40:59 Outpatient [facility] Quinn Alonso Alexandre 2022-02-16 10:51:36 2022-02-16 10:51:36 Outpatient [facility] Quinn Alonso Alexandre 2022-02-08 10:08:40 2022-02-08 10:08:40 Outpatient [facility] Quinn Alonso Alexandre 2022-01-12 00:00:00 2022-01-12 00:00:00 Letter (Out) Sonia Solorzano [facility] [id number] [facility] 2022-01-06 15:00:00 2022-01-06 15:00:00 Outpatient Donna [facility] [id number] [facility] 2021-11-21 00:00:00 2021-11-21 00:00:00 Orders Only Doctor Unassigned, [place] [facility] [id number] [facility] 2021-05-27 00:00:00 2021-05-27 00:00:00 Telephone Julianna Maza [facility] [id number] 350.1.13.10 4.2.7.2.686 [id number] [facility] 2021-05-18 13:30:00 2021-05-18 13:45:00 Rater Associate Visit Poreba, Adc Lab Main Sandy [facility] 1.2840.114 350.1.13.10 4.2.7.2.686 [id number] [facility] 2021-05-18 13:30:00 2021-05-18 13:30:00 Outpatient Donna BRAY [facility] [id number] [facility] 2021-05-18 00:00:00 2021-05-18 00:00:00 Orders Only Doctor Unassigned, [place] [facility] 1.2840.114 350.1.13.10 4.2.7.2.686 [id number] [facility] 2021-04-30 05:33:00 2021-05-04 12:29:00 Hospital Encounter Remy Denson David [facility] [id number] 350.1.13.10 4.2.7.2.686 [id number] [facility] 2021-04-30 05:33:00 2021-05-04 12:29:00 Inpatient ABY SHINE [facility] [id number] [facility] Results Test Description Test Time Test Comments Results Result Co mments Source HEMOGLOBIN [id number] 02:24:56* Test Item Value Reference Range Interpretation Comme [facility] HEMOGLOBIN A1c (test code = 78277) 8.1 % 4.2-5.[address] [facility] [employer] GUIDELINES FOR HGB A1C: PREDIABETES/INCREASED RISK . . . . . . . 5.7-6.4% DIAGNOSIS OF DIABETES . . . . . . . . . >=6.5% WITH CONFIRMATION OR APPROPRIATE SYMPTOMS NOTE: ASSAY MAY BE AFFECTED BY HEMOGLOBINOPATHIES (SICKLE CELL ANEMIA, S-C DISEASE, OTHERS) OR ARTIFICIALLY LOWERED BY DECREASED RED CELL SURVIVAL (HEMOLYTIC ANEMIAS, BLOOD LOSS, ETC.). CONSIDER ALTERNATE TESTING OR LABORATORY CONSULTATION. UNLESS OTHERWISE INDICATED, ALL TESTING PERFORMED AT [facility] [address] [place] [address] BUILDING PERFORMANCE SPECIALIST: ELENA SILVER M.D. CLIA NUMBER [id number] [facility] [place]. [id number] COMPREHENSIVE METABOLIC [id number] 00:00:00* Test Item Value Reference Range Interpretation Comme nts GLUCOSE (test code = 2217) 102 MG/DL BUN (test code = 2208) 58 MG/DL CREATININE (test code = 2214) 6.23 MG/DL eGFR (2020 CKD-EPI) (test co de = 58528) 7 ML/MIN/1.73 CALC BUN/CREAT (test code = 2235) 9 RATIO SODIUM (test code = 2231) 136 MEQ/L POTASSIUM (test code = 2228) 5.1 MEQ/L CHLORIDE (test code = 2215) 97 MEQ/L CARBON DIOXIDE (test code = 2206) 22 MEQ/L CALCIUM (test code = 2209) 10.1 MG/DL PROTEIN, TOTAL (test code = 2229) 6.7 G/DL ALBUMIN (test code = 2201) 4.4 G/DL CALC GLOBULIN (test code = 2240) 2.3 G/DL CALC A/G RATIO (test code = 2234) 1.9 RATIO BILIRUBIN, TOTAL (test code = 2207) 0.3 MG/DL ALKALINE PHOSPHATASE (test c ode = 2204) 101 U/L AST (test code = 2218) 11 U/L ALT (test code = 2219) 8 U/L Quinn SchroederHEMOGLOBIN [id number] 00:00:00* Test Item Value Reference Range Interpretation Comme [facility] HEMOGLOBIN A1c (test code = 02660) 8.1 % Quinn SchroederCOMPREHENSIVE METABOLIC [id number] 21:01:18* Test Item Value Reference Range Interpretation Comme nts GLUCOSE (test code = 2217) 126 MG/DL 70-99 H BUN (test code = 2208) 50 MG/DL 8-23 H CREATININE (test code = 2214) 5.96 MG/DL 0.60-1.30 H eGFR (2020 CKD-EPI) (test code = 76872) 7 ML/MIN/1.73 >60 L CALC BUN/CREAT (test code = 2235) 8 RATIO 6-28 SODIUM (test code = 2231) 153 MEQ/L 133-146 H POTASSIUM (test code = 2228) 6.1 MEQ/L 3.5-5.4 H Analytic results reviewed and verified. Specimen received with red cells in contact with serum. Certain results may be affected. Clinical correlation is advised to determine need for recollection. CHLORIDE (test code = 2215) 107 MEQ/L 95-107 CARBON DIOXIDE (test code = 2206) 14 MEQ/L 19-31 L CALCIUM (test code = 2209) 9.8 MG/DL 8.5-10.5 PROTEIN, TOTAL (test code = 2229) 7.8 G/DL 6.1-8.3 ALBUMIN (test code = 2201) 4.9 G/DL 3.5-5.2 CALC GLOBULIN (test code = 2240) 2.9 G/DL 1.9-3.7 CALC A/G RATIO (test code = 2234) 1.7 RATIO 1.0-2.6 BILIRUBIN, TOTAL (test code = 2207) 0.2 MG/DL <=1.2 ALKALINE PHOSPHATASE (test code = 2204) 149 U/L 40-140 H AST (test code = 2218) 17 U/L 9-40 ALT (test code = 2219) 7 U/L 5-40 UNLESS OTHERWISE INDICATED, ALL TESTING PERFORMED AT [facility] [address] [place] [place] [address] BUILDING PERFORMANCE SPECIALIST: ELENA SILVER M.D. [place] NUMBER [id number] [facility] [place]. [id number] COMPREHENSIVE METABOLIC [id number] 00:00:00* Test Item Value Reference Range Interpretation Comme nts GLUCOSE (test code = 2217) 126 MG/DL BUN (test code = 2208) 50 MG/DL CREATININE (test code = 2214) 5.96 MG/DL eGFR (2020 CKD-EPI) (test co de = 71713) 7 ML/MIN/1.73 CALC BUN/CREAT (test code = 2235) 8 RATIO SODIUM (test code = 2231) 153 MEQ/L POTASSIUM (test code = 2228) 6.1 MEQ/L CHLORIDE (test code = 2215) 107 MEQ/L CARBON DIOXIDE (test code = 2206) 14 MEQ/L CALCIUM (test code = 2209) 9.8 MG/DL PROTEIN, TOTAL (test code = 2229) 7.8 G/DL ALBUMIN (test code = 2201) 4.9 G/DL CALC GLOBULIN (test code = 2240) 2.9 G/DL CALC A/G RATIO (test code = 2234) 1.7 RATIO BILIRUBIN, TOTAL (test code = 2207) 0.2 MG/DL ALKALINE PHOSPHATASE (test c ode = 2204) 149 U/L AST (test code = 2218) 17 U/L ALT (test code = 2219) 7 U/L Quinn Alonso AustinHEMOGLOBIN [id number] 04:34:28* Test Item Value Reference Range Interpretation Comme nts HEMOGLOBIN A1c (test code = 58272) 8.3 % 4.2-5.[address] [employer] GUIDELINES FOR HGB A1C: PREDIABETES/INCREASED RISK . . . . . . . 5.7-6.4% DIAGNOSIS OF DIABETES . . . . . . . . . >=6.5% WITH CONFIRMATION OR APPROPRIATE SYMPTOMS NOTE: ASSAY MAY BE AFFECTED BY HEMOGLOBINOPATHIES (SICKLE CELL ANEMIA, S-C DISEASE, OTHERS) OR ARTIFICIALLY LOWERED BY DECREASED RED CELL SURVIVAL (HEMOLYTIC ANEMIAS, BLOOD LOSS, ETC.). CONSIDER ALTERNATE TESTING OR LABORATORY CONSULTATION. HEMOGLOBIN [id number] 00:00:00* Test Item Value Reference Range Interpretation Comme [facility] HEMOGLOBIN A1c (test code = 85853) 8.3 % Quinn Alonso AustinGAD 65 [id number] 15:45:11* Test Item Value Reference Range Interpretation Comme nts ROBERT 65 ANTIBODY (test code = 43982) <5.0 IU/mL <5.0 No autoantib chante detected. Absence of autoantibody does not rule outa diagnosis of or future risk for Type 1 Diabetes. A value greater than 5.0 IU/mL is considered positive forGlutamic Acid Decarboxylase (GAD65) Antibody. TESTING PERFORMED AT [employer] [place] [employer] [facility], [address], [address] [address] CLIA NO: [id number] NO ABN SIGNEDGAD 65 [id number] 00:00:00* Test Item Value Reference Range Interpretation Comme pricilla ROBERT 65 ANTIBODY (test code = 01605) <5.0 IU/mL Quinn Alonso AustinINSULIN [id number] 16:24:01* Test Item Value Reference Range Interpretation Comme nts INSULIN ANTIBODY (test code = 4576) <0.4 U/mL <0.5 No autoantibody detected. Absence of autoantibody does not rule out adiagnosis of or future risk for type 1 diabetes. A value greater than 0.4 U/mL is considered positive for InsulinAntibody. This assay is intended for the semi-quantitative determination ofantibodies to insulin. The level of insulin autoantibody is notrelated to the degree of diabetes. This assay does notdiscriminate between insulin autoantibodies and antibodiesproduced in response to exogenous insulin therapy. Measurement ofautoantibodies must be done prior to insulin therapy. TESTING PERFORMED AT [employer] [place] [employer] [facility], [address], [address] [address] CLIA NO: [id number] UNLESS OTHERWISE INDICATED, ALL TESTING PERFORMED AT [facility] [address] [place] [place] [address] BUILDING PERFORMANCE SPECIALIST: ELENA SILVER M.D. CLIA NUMBER [id number] [facility] [place]. [id number] NO ABN SIGNEDINSULIN [id number] 00:00:00* Test Item Value Reference Range Interpretation Comme nts INSULIN ANTIBODY (test code = 4576) <0.4 U/mL Quinn SchroederCOMPREHENSIVE METABOLIC [id number] 08:40:55* Test Item Value Reference Range Interpretation Comme nts GLUCOSE (test code = 2217) 121 MG/DL 70-99 H BUN (test code = 220) 45 MG/DL 8-23 H CREATININE (test code = 2214) 5.66 MG/DL 0.60-1.30 H eGFR (2020 CKD-EPI) (test co de = 24121) 8 ML/MIN/1.73 >60 L CALC BUN/CREAT (test code = 2235) 8 RATIO 6-28 SODIUM (test code = 223) 139 MEQ/L 133-146 POTASSIUM (test code = 2228) 5.3 MEQ/L 3.5-5.4 CHLORIDE (test code = 2215) 95 MEQ/L 95-107 CARBON DIOXIDE (test code = 2206) 27 MEQ/L 19-31 CALCIUM (test code = 2209) 8.8 MG/DL 8.5-10.5 PROTEIN, TOTAL (test code = 2229) 6.8 G/DL 6.1-8.3 ALBUMIN (test code = 2201) 4.3 G/DL 3.5-5.2 CALC GLOBULIN (test code = 2240) 2.5 G/DL 1.9-3.7 CALC A/G RATIO (test code = 2234) 1.7 RATIO 1.0-2.6 BILIRUBIN, TOTAL (test code = 2207) 0.3 MG/DL <=1.2 ALKALINE PHOSPHATASE (test c ode = 2204) 146 U/L 40-140 H AST (test code = 2218) 14 U/L 9-40 ALT (test code = 2219) 10 U/L 5-40 NO ABN SIGNEDLIPID [id number] 08:40:55* Test Item Value Reference Range Interpretation Comme nts CHOLESTEROL (test code = 2210) 162 MG/DL <200 TRIGLYCERIDES (test code = 2232) 107 MG/DL <150 HDL CHOLESTEROL (test code = 2220) 51 MG/DL >39 CALC LDL CHOL (test code = 223) 91 MG/DL <100 NOTE: CALCULATED LDL IS BASED ON PHILIPPE-MENCHACA METHOD WHICHINCLUDES ADJUSTABLE TRIGLYCERIDE:VLDL CHOLESTEROL RATIO.THIS FACTOR VARIES BY MEASURED TRIGLYCERIDE AND NON-HDLCHOLESTEROL CONCENTRATIONS WITH INCREASED CALCULATED LDL SEENIN HIGHER TRIGLYCERIDE OR LOWER NON-HDL SPECIMENS. FOR MOREINFORMATION, SEE CLIENT ANNOUNCEMENT AT [email or web address] RISK RATIO LDL/HDL (test code = 2238) 1.78 RATIO <3.22 NO ABN SIGNEDHEMOGLOBIN [id number] 02:42:14* Test Item Value Reference Range Interpretation Comme nts HEMOGLOBIN A1c (test code = 78236) 7.4 % 4.2-5.[address] [employer] GUIDELINES FOR HGB A1C: PREDIABETES/INCREASED RISK . . . . . . . 5.7-6.4% DIAGNOSIS OF DIABETES . . . . . . . . . >=6.5% WITH CONFIRMATION OR APPROPRIATE SYMPTOMS NOTE: ASSAY MAY BE AFFECTED BY HEMOGLOBINOPATHIES (SICKLE CELL ANEMIA, S-C DISEASE, OTHERS) OR ARTIFICIALLY LOWERED BY DECREASED RED CELL SURVIVAL (HEMOLYTIC ANEMIAS, BLOOD LOSS, ETC.). CONSIDER ALTERNATE TESTING OR LABORATORY CONSULTATION. NO ABN SIGNEDCOMPREHENSIVE METABOLIC [id number] 00:00:00* Test Item Value Reference Range Interpretation Comme nts GLUCOSE (test code = 2217) 121 MG/DL BUN (test code = 2208) 45 MG/DL CREATININE (test code = 2214) 5.66 MG/DL eGFR (2020 CKD-EPI) (test co de = 03556) 8 ML/MIN/1.73 CALC BUN/CREAT (test code = 2235) 8 RATIO SODIUM (test code = 2231) 139 MEQ/L POTASSIUM (test code = 2228) 5.3 MEQ/L CHLORIDE (test code = 2215) 95 MEQ/L CARBON DIOXIDE (test code = 2206) 27 MEQ/L CALCIUM (test code = 2209) 8.8 MG/DL PROTEIN, TOTAL (test code = 2229) 6.8 G/DL ALBUMIN (test code = 2201) 4.3 G/DL CALC GLOBULIN (test code = 2240) 2.5 G/DL CALC A/G RATIO (test code = 2234) 1.7 RATIO BILIRUBIN, TOTAL (test code = 2207) 0.3 MG/DL ALKALINE PHOSPHATASE (test c ode = 2204) 146 U/L AST (test code = 2218) 14 U/L ALT (test code = 2219) 10 U/L Quinn SchroederLIPID [id number] 00:00:00* Test Item Value Reference Range Interpretation Comme nts CHOLESTEROL (test code = 2210) 162 MG/DL TRIGLYCERIDES (test code = 2232) 107 MG/DL HDL CHOLESTEROL (test code = 2220) 51 MG/DL CALC LDL CHOL (test code = 2237) 91 MG/DL RISK RATIO LDL/HDL (test cod e = 2238) 1.78 RATIO Quinn SchroederHEMOGLOBIN [id number] 00:00:00* Test Item Value Reference Range Interpretation Comme nts HEMOGLOBIN A1c (test code = 04578) 7.4 % Quinn SchroederLIPID [id number] 23:37:05* Test Item Value Reference Range Interpretation Comme nts CHOLESTEROL (test code = 2210) 212 MG/DL <200 H TRIGLYCERIDES (test code = 2232) 113 MG/DL <150 HDL CHOLESTEROL (test code = 2220) 63 MG/DL >39 CALC LDL CHOL (test code = 2237) 127 MG/DL <100 H NOTE: CALCULATED LDL IS BASED ON PHILIPPE-MENCHACA METHOD WHICHINCLUDES ADJUSTABLE TRIGLYCERIDE:VLDL CHOLESTEROL RATIO.THIS FACTOR VARIES BY MEASURED TRIGLYCERIDE AND NON-HDLCHOLESTEROL CONCENTRATIONS WITH INCREASED CALCULATED LDL SEENIN HIGHER TRIGLYCERIDE OR LOWER NON-HDL SPECIMENS. FOR MOREINFORMATION, SEE CLIENT ANNOUNCEMENT AT [email or web address] RISK RATIO LDL/HDL (test code = 2238) 2.02 RATIO <3.22 COMPREHENSIVE METABOLIC [id number] 23:37:05* Test Item Value Reference Range Interpretation Comme nts GLUCOSE (test code = 2217) 222 MG/DL 70-99 H BUN (test code = 2208) 18 MG/DL 8-23 CREATININE (test code = 2214) 2.37 MG/DL 0.60-1.30 H eGFR (2020 CKD-EPI) (test code = 70589) 22 ML/MIN/1.73 >60 L CALC BUN/CREAT (test code = 2235) 8 RATIO 6-28 SODIUM (test code = 2231) 142 MEQ/L 133-146 POTASSIUM (test code = 2228) 4.6 MEQ/L 3.5-5.4 CHLORIDE (test code = 2215) 95 MEQ/L 95-107 CARBON DIOXIDE (test code = 2206) 26 MEQ/L 19-31 CALCIUM (test code = 2209) 9.3 MG/DL 8.5-10.5 PROTEIN, TOTAL (test code = 2229) 7.2 G/DL 6.1-8.3 ALBUMIN (test code = 2201) 4.3 G/DL 3.5-5.2 CALC GLOBULIN (test code = 2240) 2.9 G/DL 1.9-3.7 CALC A/G RATIO (test code = 2234) 1.5 RATIO 1.0-2.6 BILIRUBIN, TOTAL (test code = 2207) 0.3 MG/DL See_Comment [Automated me ssage] The system which generated this result transmitted reference range: <=1.2. The reference range was not used to interpret this result as normal/abnormal. ALKALINE PHOSPHATASE (test code = 4) 171 U/L 40-140 H AST (test code = 2218) 17 U/L 9-40 ALT (test code = 2219) 13 U/L 5-40 UNLESS OTHERWISE INDICATED, ALL TESTING PERFORMED AT [facility] [address] [place] [address] BUILDING PERFORMANCE SPECIALIST: ELENA SILVER M.D. IA NUMBER [id number] [facility] [place]. [id number] HEMOGLOBIN [id number] 10:29:23* Test Item Value Reference Range Interpretation Comme [facility] HEMOGLOBIN A1c (test code = 54187) 7.6 % 4.2-5.[address] [employer] GUIDELINES FOR HGB A1C: PREDIABETES/INCREASED RISK . . . . . . . 5.7-6.4% DIAGNOSIS OF DIABETES . . . . . . . . . >=6.5% WITH CONFIRMATION OR APPROPRIATE SYMPTOMS NOTE: ASSAY MAY BE AFFECTED BY HEMOGLOBINOPATHIES (SICKLE CELL ANEMIA, S-C DISEASE, OTHERS) OR ARTIFICIALLY LOWERED BY DECREASED RED CELL SURVIVAL (HEMOLYTIC ANEMIAS, BLOOD LOSS, ETC.). CONSIDER ALTERNATE TESTING OR LABORATORY CONSULTATION. HEMOGLOBIN [id number] 00:00:00* Test Item Value Reference Range Interpretation Comme [facility] HEMOGLOBIN A1c (test code = 22780) 7.6 % Quinn SchroederCOMPREHENSIVE METABOLIC [id number] 00:00:00* Test Item Value Reference Range Interpretation Comme nts GLUCOSE (test code = 2217) 222 MG/DL BUN (test code = 2208) 18 MG/DL CREATININE (test code = 2214) 2.37 MG/DL eGFR (2020 CKD-EPI) (test co de = 83361) 22 ML/MIN/1.73 CALC BUN/CREAT (test code = 2235) 8 RATIO SODIUM (test code = 2231) 142 MEQ/L POTASSIUM (test code = 2228) 4.6 MEQ/L CHLORIDE (test code = 2215) 95 MEQ/L CARBON DIOXIDE (test code = 2206) 26 MEQ/L CALCIUM (test code = 2209) 9.3 MG/DL PROTEIN, TOTAL (test code = 2229) 7.2 G/DL ALBUMIN (test code = 2201) 4.3 G/DL CALC GLOBULIN (test code = 2240) 2.9 G/DL CALC A/G RATIO (test code = 2234) 1.5 RATIO BILIRUBIN, TOTAL (test code = 2207) 0.3 MG/DL ALKALINE PHOSPHATASE (test code = 2204) 171 U/L AST (test code = 2218) 17 U/L ALT (test code = 2219) 13 U/L Quinn SchroederLIPID [id number] 00:00:00* Test Item Value Reference Range Interpretation Comme nts CHOLESTEROL (test code = 2210) 212 MG/DL TRIGLYCERIDES (test code = 2232) 113 MG/DL HDL CHOLESTEROL (test code = 2220) 63 MG/DL CALC LDL CHOL (test code = 2237) 127 MG/DL RISK RATIO LDL/HDL (test cod e = 2238) 2.02 RATIO [facility] 01:54:20* Test Item Value Reference Range Interpretation Comme nts POCT GLU (test code = 4522689238) 103 mg/dL 70-110 Lab Interpretation (test cod e = 46169-8) [facility] 22:41:50* Test Item Value Reference Range Interpretation Comme nts POCT GLU (test code = 1607137119) 150 mg/dL 70-110 H Lab Interpretation (test cod e = 69880-0) Abnormal [facility] GLUCOSE (AUTOMATED)2022-05-26 18:54:59* Test Item Value Reference Range Interpretation Comme nts POCT GLU (test code = 3908024935) 216 mg/dL 70-110 H Lab Interpretation (test cod e = 90254-9) [facility] 15:29:20* Test Item Value Reference Range Interpretation Comme nts POCT GLU (test code = 1651919942) 159 mg/dL 70-110 H Lab Interpretation (test cod e = 01312-9) Abnormal [facility] GLUCOSE (AUTOMATED)2022-05-26 03:10:28* Test Item Value Reference Range Interpretation Comme nts POCT GLU (test code = 5304264432) 253 mg/dL 70-110 H Lab Interpretation (test cod e = 13411-9) Abnormal [facility] GLUCOSE (AUTOMATED)2022-05-25 23:19:38* Test Item Value Reference Range Interpretation Comme nts POCT GLU (test code = 5466532086) 139 mg/dL 70-110 H Lab Interpretation (test cod e = 91358-6) Abnormal [facility] GLUCOSE (AUTOMATED)2022-05-25 18:08:19* Test Item Value Reference Range Interpretation Comme nts POCT GLU (test code = 2136717659) 277 mg/dL 70-110 H Lab Interpretation (test cod e = 62616-7) [facility] 15:20:51* Test Item Value Reference Range Interpretation Comme nts POCT GLU (test code = 4550649306) 220 mg/dL 70-110 H Lab Interpretation (test cod e = 67958-0) [facility] 03:14:53* Test Item Value Reference Range Interpretation Comme nts POCT GLU (test code = 9268333219) 207 mg/dL 70-110 H Lab Interpretation (test cod e = 88167-2) Abnormal [facility] GLUCOSE (AUTOMATED)2022-05-25 01:42:22* Test Item Value Reference Range Interpretation Comme nts POCT GLU (test code = 9157060566) 129 mg/dL 70-110 H Lab Interpretation (test cod e = 77206-1) [facility] 18:07:09* Test Item Value Reference Range Interpretation Comme nts POCT GLU (test code = 2136181952) 265 mg/dL 70-110 H Lab Interpretation (test cod e = 30916-2) [facility]22-[facility]24 15:25:45* Test Item Value Reference Range Interpretation Comme nts POCT GLU (test code = 7016426719) 142 mg/dL 70-110 H Lab Interpretation (test cod e = 22201-8) [facility] 03:04:09* Test Item Value Reference Range Interpretation Comme nts POCT GLU (test code = 5692913631) 155 mg/dL 70-110 H Lab Interpretation (test cod e = 09494-5) Abnormal [facility] GLUCOSE (AUTOMATED)2022-05-23 23:36:58* Test Item Value Reference Range Interpretation Comme nts POCT GLU (test code = 9932369689) 229 mg/dL 70-110 H Lab Interpretation (test cod e = 27290-5) Abnormal [facility] GLUCOSE (AUTOMATED)2022-05-23 18:12:53* Test Item Value Reference Range Interpretation Comme nts POCT GLU (test code = 4503918098) 241 mg/dL 70-110 H Lab Interpretation (test cod e = 05557-7) [facility]22-[facility]-23 15:13:34* Test Item Value Reference Range Interpretation Comme nts POCT GLU (test code = 3880437812) 151 mg/dL 70-110 H Lab Interpretation (test cod e = 18164-8) [facility]22-[facility]-23 02:41:42* Test Item Value Reference Range Interpretation Comme nts POCT GLU (test code = 7617964417) 237 mg/dL 70-110 H Lab Interpretation (test cod e = 73844-0) [facility]22-[facility]-22 23:22:37* Test Item Value Reference Range Interpretation Comme nts POCT GLU (test code = 7886630530) 235 mg/dL 70-110 H Lab Interpretation (test cod e = 82101-5) Abnormal [facility] GLUCOSE (AUTOMATED)2022-05-22 20:36:06* Test Item Value Reference Range Interpretation Comme nts POCT GLU (test code = 1454179745) 247 mg/dL 70-110 H Lab Interpretation (test cod e = 77223-0) [facility]22-[facility]-22 18:32:31* Test Item Value Reference Range Interpretation Comme nts POCT GLU (test code = 2371481383) 263 mg/dL 70-110 H Lab Interpretation (test cod e = 65223-0) Abnormal [facility] GLUCOSE (AUTOMATED)2022-05-22 15:09:08* Test Item Value Reference Range Interpretation Comme nts POCT GLU (test code = 0767056825) 145 mg/dL 70-110 H Lab Interpretation (test cod e = 07533-4) Abnormal [facility] GLUCOSE (AUTOMATED)2022-05-22 03:05:05* Test Item Value Reference Range Interpretation Comme nts POCT GLU (test code = 8714773912) 269 mg/dL 70-110 H Lab Interpretation (test cod e = 99652-6) Abnormal [facility] GLUCOSE (AUTOMATED)2022-05-21 23:27:43* Test Item Value Reference Range Interpretation Comme nts POCT GLU (test code = 8754329115) 187 mg/dL 70-110 H Lab Interpretation (test cod e = 53764-0) [facility]21 15:03:24* Test Item Value Reference Range Interpretation Comme nts POCT GLU (test code = 6838477990) 175 mg/dL 70-110 H Lab Interpretation (test cod e = 16923-9) [facility]21 03:48:30* Test Item Value Reference Range Interpretation Comme nts POCT GLU (test code = 2044433503) 250 mg/dL 70-110 H Lab Interpretation (test cod e = 54184-7) Abnormal [facility] GLUCOSE (AUTOMATED)2022-05-20 23:10:10* Test Item Value Reference Range Interpretation Comme nts POCT GLU (test code = [id number]) 133 mg/dL 70-110 H Lab Interpretation (test cod e = 95292-4) Abnormal [facility] GLUCOSE (AUTOMATED)2022-05-20 19:22:35* Test Item Value Reference Range Interpretation Comme nts POCT GLU (test code = [id number]) 257 mg/dL 70-110 H Lab Interpretation (test cod e = 65853-5) Abnormal [facility] GLUCOSE (AUTOMATED)2022-05-20 13:52:51* Test Item Value Reference Range Interpretation Comme nts POCT GLU (test code = [id number]) 120 mg/dL 70-110 H Lab Interpretation (test cod e = 99588-2) Abnormal [facility] GLUCOSE (AUTOMATED)2022-05-20 07:58:34* Test Item Value Reference Range Interpretation Comme nts POCT GLU (test code = [id number]) 154 mg/dL 70-110 H Lab Interpretation (test cod e = 89476-3) Abnormal [facility] GLUCOSE (AUTOMATED)2022-05-20 04:46:18* Test Item Value Reference Range Interpretation Comme nts POCT GLU (test code = 3050491876) 301 mg/dL 70-110 H Lab Interpretation (test cod e = 87659-8) Abnormal [facility] GLUCOSE (AUTOMATED)2022-05-20 00:32:10* Test Item Value Reference Range Interpretation Comme nts POCT GLU (test code = [id number]) 156 mg/dL 70-110 H Lab Interpretation (test cod e = 69829-3) Abnormal [facility] GLUCOSE (AUTOMATED)2022-05-19 18:05:00* Test Item Value Reference Range Interpretation Comme nts POCT GLU (test code = [id number]) 211 mg/dL 70-110 H Lab Interpretation (test cod e = 87076-6) Abnormal [facility] GLUCOSE (AUTOMATED)2022-05-19 14:45:03* Test Item Value Reference Range Interpretation Comme nts POCT GLU (test code = [id number]) 180 mg/dL 70-110 H Lab Interpretation (test cod e = 48328-7) Abnormal [facility] GLUCOSE (AUTOMATED)2022-05-19 03:38:25* Test Item Value Reference Range Interpretation Comme nts POCT GLU (test code = [id number]) 246 mg/dL 70-110 H Lab Interpretation (test cod e = 28189-1) Abnormal [facility] GLUCOSE (AUTOMATED)2022-05-18 22:27:08* Test Item Value Reference Range Interpretation Comme nts POCT GLU (test code = 7853542800) 226 mg/dL 70-110 H Lab Interpretation (test cod e = 16147-9) Abnormal [facility] GLUCOSE (AUTOMATED)2022-05-18 18:04:57* Test Item Value Reference Range Interpretation Comme nts POCT GLU (test code = 2440879089) 272 mg/dL 70-110 H Lab Interpretation (test cod e = 31477-7) Abnormal [facility] GLUCOSE (AUTOMATED)2022-05-18 18:04:57* Test Item Value Reference Range Interpretation Comme nts POCT GLU (test code = 6499042690) 272 mg/dL 70-110 H Lab Interpretation (test cod e = 63100-9) Abnormal [facility] GLUCOSE (AUTOMATED)2022-05-18 14:52:13* Test Item Value Reference Range Interpretation Comme nts POCT GLU (test code = 2913601534) 215 mg/dL 70-110 H Lab Interpretation (test cod e = 84787-6) Abnormal [facility] GLUCOSE (AUTOMATED)2022-05-18 14:52:13* Test Item Value Reference Range Interpretation Comme nts POCT GLU (test code = 2281931432) 215 mg/dL 70-110 H Lab Interpretation (test cod e = 46936-9) Abnormal [facility] GLUCOSE (AUTOMATED)2022-05-18 03:54:19* Test Item Value Reference Range Interpretation Comme nts POCT GLU (test code = 8330631018) 262 mg/dL 70-110 H Lab Interpretation (test cod e = 36971-4) Abnormal [facility] GLUCOSE (AUTOMATED)2022-05-18 03:54:19* Test Item Value Reference Range Interpretation Comme nts POCT GLU (test code = 9938909217) 262 mg/dL 70-110 H Lab Interpretation (test cod e = 60648-8) Abnormal [facility] GLUCOSE (AUTOMATED)2022-05-17 23:10:52* Test Item Value Reference Range Interpretation Comme nts POCT GLU (test code = 8577410083) 153 mg/dL 70-110 H Lab Interpretation (test cod e = 59796-5) Abnormal [facility] GLUCOSE (AUTOMATED)2022-05-17 23:10:52* Test Item Value Reference Range Interpretation Comme nts POCT GLU (test code = 1684674636) 153 mg/dL 70-110 H Lab Interpretation (test cod e = 61877-6) Abnormal [facility] GLUCOSE (AUTOMATED)2022-05-17 18:17:46* Test Item Value Reference Range Interpretation Comme nts POCT GLU (test code = 3085464591) 109 mg/dL 70-110 Lab Interpretation (test cod e = 67713-0) Normal [facility] GLUCOSE (AUTOMATED)2022-05-17 18:17:46* Test Item Value Reference Range Interpretation Comme nts POCT GLU (test code = 7052608424) 109 mg/dL 70-110 Lab Interpretation (test cod e = 09765-9) Normal [facility] GLUCOSE (AUTOMATED)2022-05-17 15:03:31* Test Item Value Reference Range Interpretation Comme nts POCT GLU (test code = 5783939498) 120 mg/dL 70-110 H Lab Interpretation (test cod e = 31990-9) Abnormal [facility] GLUCOSE (AUTOMATED)2022-05-17 15:03:31* Test Item Value Reference Range Interpretation Comme nts POCT GLU (test code = 2239984824) 120 mg/dL 70-110 H Lab Interpretation (test cod e = 72379-0) Abnormal [facility] GLUCOSE (AUTOMATED)2022-05-17 02:16:18* Test Item Value Reference Range Interpretation Comme nts POCT GLU (test code = 0471135830) 247 mg/dL 70-110 H Lab Interpretation (test cod e = 80714-3) Abnormal [facility] GLUCOSE (AUTOMATED)2022-05-17 02:16:18* Test Item Value Reference Range Interpretation Comme nts POCT GLU (test code = 1090565249) 247 mg/dL 70-110 H Lab Interpretation (test cod e = 18397-4) Abnormal [facility] GLUCOSE (AUTOMATED)2022-05-16 23:47:19* Test Item Value Reference Range Interpretation Comme nts POCT GLU (test code = 9326890786) 255 mg/dL 70-110 H Lab Interpretation (test cod e = 08861-9) [facility] 23:47:19* Test Item Value Reference Range Interpretation Comme nts POCT GLU (test code = 6597400424) 255 mg/dL 70-110 H Lab Interpretation (test cod e = 38803-4) Abnormal [facility] GLUCOSE (AUTOMATED)2022-05-16 18:51:57* Test Item Value Reference Range Interpretation Comme nts POCT GLU (test code = 8776039977) 222 mg/dL 70-110 H Lab Interpretation (test cod e = 18002-4) Abnormal [facility] GLUCOSE (AUTOMATED)2022-05-16 18:51:57* Test Item Value Reference Range Interpretation Comme nts POCT GLU (test code = 7039329970) 222 mg/dL 70-110 H Lab Interpretation (test cod e = 96654-0) Abnormal [facility] GLUCOSE (AUTOMATED)2022-05-16 15:03:18* Test Item Value Reference Range Interpretation Comme nts POCT GLU (test code = 3380432347) 182 mg/dL 70-110 H Lab Interpretation (test cod e = 21813-5) Abnormal [facility] GLUCOSE (AUTOMATED)2022-05-16 15:03:18* Test Item Value Reference Range Interpretation Comme nts POCT GLU (test code = 2263840437) 182 mg/dL 70-110 H Lab Interpretation (test cod e = 45153-5) Abnormal [facility] GLUCOSE (AUTOMATED)2022-05-16 15:03:18* Test Item Value Reference Range Interpretation Comme nts POCT GLU (test code = 4382076395) 182 mg/dL 70-110 H Lab Interpretation (test cod e = 83998-0) [facility]:21* Test Item Value Reference Range Interpretation Comme nts PHOSPHORUS (test code = 2185601471) 3.1 mg/dL 2.5-5.0 Lab Interpretation (test cod e = 29283-4) [facility] 13:59:21* Test Item Value Reference Range Interpretation Comme nts MAGNESIUM (test code = 8844996912) 2.1 mg/dL 1.7-2.4 Lab Interpretation (test cod e = 47483-4) [facility] (NA, K, CL, CO2, GLUCOSE, BUN, CREATININE, CA)2022-05-16 13:59:21* Test Item Value Reference Range Interpretation Comme nts NA (test code = 4319820230) 126 mmol/L 135-145 L K (test code = 3014214485) 4.1 mmol/L 3.5-5.0 CL (test code = 3483426859) 94 mmol/L 98-108 L CO2 TOTAL (test code = 9432564057) 24 mmol/L 23-31 AGAP (test code = 8111985601) 8 2-16 BUN (test code = 5116372851) 27 mg/dL 7-23 H GLUCOSE (test code = 5292456733) 234 mg/dL 70-110 H CREATININE (test code = 2611317865) 3.68 mg/dL 0.50-1.04 H CALCIUM (test code = 5718363895) 8.4 mg/dL 8.6-10.6 L eGFR (test code = 8824049489) 12.5 mL/min/1.73m2 INDIRA (test code = INDIRA) Association of [...] or abnormalities in imaging tests). Lab Interpretation (test code = 75423-3) [facility] 13:59:21* Test Item Value Reference Range Interpretation Comme nts PHOSPHORUS (test code = 0411869441) 3.1 mg/dL 2.5-5.0 Lab Interpretation (test cod e = 77870-5) [facility] 13:59:21* Test Item Value Reference Range Interpretation Comme nts MAGNESIUM (test code = 7363459748) 2.1 mg/dL 1.7-2.4 Lab Interpretation (test cod e = 00381-4) [facility] (NA, K, CL, CO2, GLUCOSE, BUN, CREATININE, CA)2022-05-16 13:59:21* Test Item Value Reference Range Interpretation Comme nts NA (test code = 5025674061) 126 mmol/L 135-145 L K (test code = 7663838454) 4.1 mmol/L 3.5-5.0 CL (test code = 1595877142) 94 mmol/L 98-108 L CO2 TOTAL (test code = 3142799251) 24 mmol/L 23-31 AGAP (test code = 3145385086) 2-16 BUN (test code = 0168450284) 27 mg/dL 7-23 H GLUCOSE (test code = 2418118520) 234 mg/dL 70-110 H CREATININE (test code = 8524264325) 3.68 mg/dL 0.50-1.04 H CALCIUM (test code = 0825764720) 8.4 mg/dL 8.6-10.6 L eGFR (test code = 4155701909) mL/min/1.73m2 INIDRA (test code = INDIRA) Association of Glomerular [...] or abnormalities in imaging tests). Lab Interpretation (test code = 83348-6) [facility] 13:59:21* Test Item Value Reference Range Interpretation Comme nts PHOSPHORUS (test code = 6142753457) 3.1 mg/dL 2.5-5.0 Lab Interpretation (test cod e = 22220-8) [facility] 13:59:21* Test Item Value Reference Range Interpretation Comme nts MAGNESIUM (test code = 8406067354) 2.1 mg/dL 1.7-2.4 Lab Interpretation (test cod e = 04783-7) [facility] (NA, K, CL, CO2, GLUCOSE, BUN, CREATININE, CA)2022-05-16 13:59:21* Test Item Value Reference Range Interpretation Comme nts NA (test code = 1109579152) 126 mmol/L 135-145 L K (test code = 1945774704) 4.1 mmol/L 3.5-5.0 CL (test code = 4005671407) 94 mmol/L 98-108 L CO2 TOTAL (test code = 9955754018) 24 mmol/L 23-31 AGAP (test code = 2533199124) 2-16 BUN (test code = 9653094172) 27 mg/dL 7-23 H GLUCOSE (test code = 8275531178) 234 mg/dL 70-110 H CREATININE (test code = 1709164547) 3.68 mg/dL 0.50-1.04 H CALCIUM (test code = 6097032694) 8.4 mg/dL 8.6-10.6 L eGFR (test code = 8519376844) mL/min/1.73m2 INDIRA (test code = INDIRA) Association of [...] or abnormalities in imaging tests). Lab Interpretation (test code = 59121-9) Abnormal [facility] GLUCOSE (AUTOMATED)2022-05-16 03:04:46* Test Item Value Reference Range Interpretation Comme nts POCT GLU (test code = 6624026680) 215 mg/dL 70-110 H Lab Interpretation (test cod e = 09394-1) Abnormal [facility] GLUCOSE (AUTOMATED)2022-05-16 03:04:46* Test Item Value Reference Range Interpretation Comme nts POCT GLU (test code = 0992695728) 215 mg/dL 70-110 H Lab Interpretation (test cod e = 43281-9) Abnormal [facility] GLUCOSE (AUTOMATED)2022-05-15 23:14:46* Test Item Value Reference Range Interpretation Comme nts POCT GLU (test code = 8959447005) 203 mg/dL 70-110 H Lab Interpretation (test cod e = 84438-7) Abnormal [facility] GLUCOSE (AUTOMATED)2022-05-15 23:14:46* Test Item Value Reference Range Interpretation Comme nts POCT GLU (test code = 1590652736) 203 mg/dL 70-110 H Lab Interpretation (test cod e = 24568-7) Abnormal [facility] GLUCOSE (AUTOMATED)2022-05-15 18:59:52* Test Item Value Reference Range Interpretation Comme nts POCT GLU (test code = 1297961790) 282 mg/dL 70-110 H Lab Interpretation (test cod e = 29585-8) Abnormal [facility] GLUCOSE (AUTOMATED)2022-05-15 18:59:52* Test Item Value Reference Range Interpretation Comme nts POCT GLU (test code = 6673561121) 282 mg/dL 70-110 H Lab Interpretation (test cod e = 79415-7) Abnormal [facility] GLUCOSE (AUTOMATED)2022-05-15 14:45:41* Test Item Value Reference Range Interpretation Comme nts POCT GLU (test code = 0324650079) 175 mg/dL 70-110 H Lab Interpretation (test cod e = 97746-5) Abnormal [facility] GLUCOSE (AUTOMATED)2022-05-15 14:45:41* Test Item Value Reference Range Interpretation Comme nts POCT GLU (test code = 8455481419) 175 mg/dL 70-110 H Lab Interpretation (test cod e = 78540-6) Abnormal [facility] GLUCOSE (AUTOMATED)2022-05-15 02:09:45* Test Item Value Reference Range Interpretation Comme nts POCT GLU (test code = 5380217015) 209 mg/dL 70-110 H Lab Interpretation (test cod e = 14417-5) Abnormal [facility] GLUCOSE (AUTOMATED)2022-05-15 02:09:45* Test Item Value Reference Range Interpretation Comme nts POCT GLU (test code = 2580306116) 209 mg/dL 70-110 H Lab Interpretation (test cod e = 40993-2) Abnormal [facility] GLUCOSE (AUTOMATED)2022-05-14 22:22:10* Test Item Value Reference Range Interpretation Comme nts POCT GLU (test code = 0719711236) 118 mg/dL 70-110 H Lab Interpretation (test cod e = 59945-9) Abnormal [facility] GLUCOSE (AUTOMATED)2022-05-14 22:22:10* Test Item Value Reference Range Interpretation Comme nts POCT GLU (test code = 3676208481) 118 mg/dL 70-110 H Lab Interpretation (test cod e = 81652-3) [facility] / [id number] 19:05:22* Test Item Value Reference Range Interpretation Comme nts PROTIME PATIENT (test code = 5964-2) 11.9 See_Comment [Automated messa ge] The system which generated this result transmitted reference range: 10.1 - 12.6 Seconds. The reference range was not used to interpret this result as normal/abnormal. INR (test code = 6301-6) 1.1 Normal INR <1.1; Warfarin Therapeutic range 2.0 to 3.0 or 2.5 to 3.5, depending upon the indications. Lab Interpretation (test code = 11292-6) [facility] / [id number] 19:05:22* Test Item Value Reference Range Interpretation Comme nts PROTIME PATIENT (test code = 5964-2) See_Comment [Automated messa ge] The system which generated this result transmitted reference range: 10.1 - 12.6 Seconds. The reference range was not used to interpret this result as normal/abnormal. INR (test code = 6301-6) Normal INR <1.1; Warfarin Therapeutic range 2.0 to 3.0 or 2.5 to 3.5, depending upon the indications. Lab Interpretation (test code = 42592-9) [facility] / [id number] 19:05:22* Test Item Value Reference Range Interpretation Comme nts PROTIME PATIENT (test code = 5964-2) See_Comment [Automated messa ge] The system which generated this result transmitted reference range: 10.1 - 12.6 Seconds. The reference range was not used to interpret this result as normal/abnormal. INR (test code = 6301-6) Normal INR <1.1; Warfarin Therapeutic range 2.0 to 3.0 or 2.5 to 3.5, depending upon the indications. Lab Interpretation (test code = 93918-5) Normal [facility] GLUCOSE (AUTOMATED)2022-05-14 18:03:48* Test Item Value Reference Range Interpretation Comme nts POCT GLU (test code = 1850724524) 102 mg/dL 70-110 Lab Interpretation (test cod e = 96142-4) Normal [facility] GLUCOSE (AUTOMATED)2022-05-14 18:03:48* Test Item Value Reference Range Interpretation Comme nts POCT GLU (test code = 2883908640) 102 mg/dL 70-110 Lab Interpretation (test cod e = 04164-1) Normal [facility] GLUCOSE (AUTOMATED)2022-05-14 15:41:33* Test Item Value Reference Range Interpretation Comme nts POCT GLU (test code = 2932404010) 139 mg/dL 70-110 H Lab Interpretation (test cod e = 87945-6) Abnormal [facility] GLUCOSE (AUTOMATED)2022-05-14 15:41:33* Test Item Value Reference Range Interpretation Comme nts POCT GLU (test code = 9935128593) 139 mg/dL 70-110 H Lab Interpretation (test cod e = 85604-2) Abnormal [facility] WITH [id number] 13:05:08* Test Item Value Reference Range Interpretation Comme nts WBC (test code = 6690-2) 6.69 See_Comment [Automated messa ge] The system which generated this result transmitted reference range: 4.30 - 11.10 10*3/?L. The reference range was not used to interpret this result as normal/abnormal. RBC (test code = 789-8) 3.64 See_Comment L [Automated messa ge] The system which generated this result transmitted reference range: 3.93 - 5.25 10*6/?L. The reference range was not used to interpret this result as normal/abnormal. HGB (test code = 718-7) 10.9 g/dL 11.6-15.0 L HCT (test code = 4544-3) 33.8 % 35.7-45.2 L MCV (test code = 787-2) 92.9 fL 80.6-95.5 MCH (test code = 785-6) 29.9 pg 25.9-32.8 MCHC (test code = 786-4) 32.2 g/dL 31.6-35.1 RDW-SD (test code = 86390-9) 55.5 fL 39.0-49.9 H RDW-CV (test code = 788-0) 16.2 % 12.0-15.5 H PLT (test code = 777-3) 195 See_Comment [Automated messa ge] The system which generated this result transmitted reference range: 166 - 358 10*3/?L. The reference range was not used to interpret this result as normal/abnormal. MPV (test code = 36643-7) 11.5 fL 9.5-12.9 IPF % (test code = 4851628382) 3.8 % 1.3-7.7 Platelet count measured by fluorescence method. NRBC/100 WBC (test code = 9866804311) 0.0 See_Comment [Automated Morphy ssage] The system which generated this result transmitted reference range: 0.0 - 10.0 /100 WBCs. The reference range was not used to interpret this result as normal/abnormal. NRBC x10^3 (test code = 8332337978) See_Comment [Automated messa ge] The system which generated this result transmitted reference range: 10*3/?L. The reference range was not used to interpret this result as normal/abnormal. GRAN MAT (NEUT) % (test code = 770-8) 59.0 % IMM GRAN % (test code = 7143217136) 0.30 % LYMPH % (test code = 736-9) 22.6 % MONO % (test code = 5905-5) 12.1 % EOS % (test code = 713-8) 5.4 % BASO % (test code = 706-2) 0.6 % GRAN MAT x10^3(ANC) (test code = 1183467756) 3.95 10*3/uL 1.88-7.09 IMM GRAN x10^3 (test code = 3587161318) 0.00-0.06 LYMPH x10^3 (test code = 731-0) 1.51 10*3/uL 1.32-3.29 MONO x10^3 (test code = 742-7) 0.81 10*3/uL 0.33-0.92 EOS x10^3 (test code = 711-2) 0.36 10*3/uL 0.03-0.39 BASO x10^3 (test code = 704-7) 0.04 10*3/uL 0.01-0.07 BASO STIPPLING (test code = 703-9) Present A JOANNE CELLS (test code = 7790-9) 2+ See_Comment A [Automated Like.coma ge] The system which generated this result transmitted reference range: (none). The reference range was not used to interpret this result as normal/abnormal. SCHISTOCYTES (test code = 800-3) 1+ A SIDEROTIC GRAN (test code = 7795-8) Suggestive of A Lab Interpretation (test code = 96509-7) Abnormal [facility] WITH [id number] 13:05:08* Test Item Value Reference Range Interpretation Comme nts WBC (test code = 6690-2) See_Comment [Automated Like.coma ge] The system which generated this result transmitted reference range: 4.30 - 11.10 10*3/?L. The reference range was not used to interpret this result as normal/abnormal. RBC (test code = 789-8) See_Comment L [Automated messa ge] The system which generated this result transmitted reference range: 3.93 - 5.25 10*6/?L. The reference range was not used to interpret this result as normal/abnormal. HGB (test code = 718-7) 10.9 g/dL 11.6-15.0 L HCT (test code = 4544-3) 33.8 % 35.7-45.2 L MCV (test code = 787-2) 92.9 fL 80.6-95.5 MCH (test code = 785-6) 29.9 pg 25.9-32.8 MCHC (test code = 786-4) 32.2 g/dL 31.6-35.1 RDW-SD (test code = 34909-2) 55.5 fL 39.0-49.9 H RDW-CV (test code = 788-0) 16.2 % 12.0-15.5 H PLT (test code = 777-3) See_Comment [Automated messa ge] The system which generated this result transmitted reference range: 166 - 358 10*3/?L. The reference range was not used to interpret this result as normal/abnormal. MPV (test code = 95546-2) 11.5 fL 9.5-12.9 IPF % (test code = 0092548088) 3.8 % 1.3-7.7 Platelet count measured by fluorescence method. NRBC/100 WBC (test code = 3359284324) See_Comment [Automated Morphy ssage] The system which generated this result transmitted reference range: 0.0 - 10.0 /100 WBCs. The reference range was not used to interpret this result as normal/abnormal. NRBC x10^3 (test code = 7481286745) See_Comment [Automated messa ge] The system which generated this result transmitted reference range: 10*3/?L. The reference range was not used to interpret this result as normal/abnormal. GRAN MAT (NEUT) % (test code = 770-8) 59.0 % IMM GRAN % (test code = 6367685334) 0.30 % LYMPH % (test code = 736-9) 22.6 % MONO % (test code = 5905-5) 12.1 % EOS % (test code = 713-8) 5.4 % BASO % (test code = 706-2) 0.6 % GRAN MAT x10^3(ANC) (test code = 9787493305) 3.95 10*3/uL 1.88-7.09 IMM GRAN x10^3 (test code = 8821742410) 0.00-0.06 LYMPH x10^3 (test code = 731-0) 1.51 10*3/uL 1.32-3.29 MONO x10^3 (test code = 742-7) 0.81 10*3/uL 0.33-0.92 EOS x10^3 (test code = 711-2) 0.36 10*3/uL 0.03-0.39 BASO x10^3 (test code = 704-7) 0.04 10*3/uL 0.01-0.07 BASO STIPPLING (test code = 703-9) Present A JOANNE CELLS (test code = 7790-9) 2+ See_Comment A [Automated messa ge] The system which generated this result transmitted reference range: (none). The reference range was not used to interpret this result as normal/abnormal. SCHISTOCYTES (test code = 800-3) 1+ A SIDEROTIC GRAN (test code = 7795-8) Suggestive of A Lab Interpretation (test code = 76802-1) Abnormal [facility] WITH [id number] 13:05:08* Test Item Value Reference Range Interpretation Comme nts WBC (test code = 6690-2) See_Comment [Automated messa ge] The system which generated this result transmitted reference range: 4.30 - 11.10 10*3/?L. The reference range was not used to interpret this result as normal/abnormal. RBC (test code = 789-8) See_Comment L [Automated messa ge] The system which generated this result transmitted reference range: 3.93 - 5.25 10*6/?L. The reference range was not used to interpret this result as normal/abnormal. HGB (test code = 718-7) 10.9 g/dL 11.6-15.0 L HCT (test code = 4544-3) 33.8 % 35.7-45.2 L MCV (test code = 787-2) 92.9 fL 80.6-95.5 MCH (test code = 785-6) 29.9 pg 25.9-32.8 MCHC (test code = 786-4) 32.2 g/dL 31.6-35.1 RDW-SD (test code = 46137-7) 55.5 fL 39.0-49.9 H RDW-CV (test code = 788-0) 16.2 % 12.0-15.5 H PLT (test code = 777-3) See_Comment [Automated Like.coma ge] The system which generated this result transmitted reference range: 166 - 358 10*3/?L. The reference range was not used to interpret this result as normal/abnormal. MPV (test code = 72388-7) 11.5 fL 9.5-12.9 IPF % (test code = 9787668886) 3.8 % 1.3-7.7 Platelet count measured by fluorescence method. NRBC/100 WBC (test code = 0214726374) See_Comment [Automated [employer]edge] The system which generated this result transmitted reference range: 0.0 - 10.0 /100 WBCs. The reference range was not used to interpret this result as normal/abnormal. NRBC x10^3 (test code = 4637226692) See_Comment [Automated Like.coma SongFlame] The system which generated this result transmitted reference range: 10*3/?L. The reference range was not used to interpret this result as normal/abnormal. GRAN MAT (NEUT) % (test code = 770-8) 59.0 % IMM GRAN % (test code = 7983419283) 0.30 % LYMPH % (test code = 736-9) 22.6 % MONO % (test code = 5905-5) 12.1 % EOS % (test code = 713-8) 5.4 % BASO % (test code = 706-2) 0.6 % GRAN MAT x10^3(ANC) (test code = 2086535770) 3.95 10*3/uL 1.88-7.09 IMM GRAN x10^3 (test code = 4453837001) 0.00-0.06 LYMPH x10^3 (test code = 731-0) 1.51 10*3/uL 1.32-3.29 MONO x10^3 (test code = 742-7) 0.81 10*3/uL 0.33-0.92 EOS x10^3 (test code = 711-2) 0.36 10*3/uL 0.03-0.39 BASO x10^3 (test code = 704-7) 0.04 10*3/uL 0.01-0.07 BASO STIPPLING (test code = 703-9) Present A JOANNE CELLS (test code = 7790-9) 2+ See_Comment A [Automated messa ge] The system which generated this result transmitted reference range: (none). The reference range was not used to interpret this result as normal/abnormal. SCHISTOCYTES (test code = 800-3) 1+ A SIDEROTIC GRAN (test code = 7795-8) Suggestive of A Lab Interpretation (test code = 04840-4) [facility] 12:42:02* Test Item Value Reference Range Interpretation Comme nts PHOSPHORUS (test code = 8510876631) 3.3 mg/dL 2.5-5.0 Lab Interpretation (test cod e = 24426-9) [facility] 12:42:02* Test Item Value Reference Range Interpretation Comme nts MAGNESIUM (test code = 0986614613) 2.3 mg/dL 1.7-2.4 Lab Interpretation (test cod e = 53096-3) [facility] (NA, K, CL, CO2, GLUCOSE, BUN, CREATININE, CA)2022-05-14 12:42:02* Test Item Value Reference Range Interpretation Comme nts NA (test code = 3713579305) 128 mmol/L 135-145 L K (test code = 2259537172) 5.1 mmol/L 3.5-5.0 H Slight hemolysis CL (test code = 7757596016) 97 mmol/L 98-108 L CO2 TOTAL (test code = 8514506322) 26 mmol/L 23-31 AGAP (test code = 5269805602) 5 2-16 BUN (test code = 5707492808) 28 mg/dL 7-23 H Slight hemolysis GLUCOSE (test code = 8100022934) 166 mg/dL 70-110 H CREATININE (test code = 5874162842) 3.51 mg/dL 0.50-1.04 H CALCIUM (test code = 0404584122) 8.5 mg/dL 8.6-10.6 L eGFR (test code = 7841703804) 13.2 mL/min/1.73m2 INDIRA (test code = INDIRA) Association of [...] or abnormalities in imaging tests). Lab Interpretation (test code = 51273-9) [facility] 12:42:02* Test Item Value Reference Range Interpretation Comme nts PHOSPHORUS (test code = 2894684114) 3.3 mg/dL 2.5-5.0 Lab Interpretation (test cod e = 83979-9) [facility] 12:42:02* Test Item Value Reference Range Interpretation Comme nts MAGNESIUM (test code = 2305185607) 2.3 mg/dL 1.7-2.4 Lab Interpretation (test cod e = 52783-2) Normal [facility] METABOLIC PANEL (NA, K, CL, CO2, GLUCOSE, BUN, CREATININE, CA)2022-05-14 12:42:02* Test Item Value Reference Range Interpretation Comme nts NA (test code = 9007785414) 128 mmol/L 135-145 L K (test code = 0878670075) 5.1 mmol/L 3.5-5.0 H Slight hemolysis CL (test code = 8471966831) 97 mmol/L 98-108 L CO2 TOTAL (test code = 9563153851) 26 mmol/L 23-31 AGAP (test code = 9475727693) 2-16 BUN (test code = 3597382691) 28 mg/dL 7-23 H Slight hemolysis GLUCOSE (test code = 4743184925) 166 mg/dL 70-110 H CREATININE (test code = 8870309818) 3.51 mg/dL 0.50-1.04 H CALCIUM (test code = 8056197555) 8.5 mg/dL 8.6-10.6 L eGFR (test code = 8725512605) mL/min/1.73m2 INDIRA (test code = INDIRA) Association of [...] or abnormalities in imaging tests). Lab Interpretation (test code = 19860-8) Abnormal [facility] GLUCOSE (AUTOMATED)2022-05-14 03:20:19* Test Item Value Reference Range Interpretation Comme nts POCT GLU (test code = 4452056273) 259 mg/dL 70-110 H Lab Interpretation (test cod e = 15398-3) Abnormal [facility] GLUCOSE (AUTOMATED)2022-05-14 03:20:19* Test Item Value Reference Range Interpretation Comme nts POCT GLU (test code = 3722661869) 259 mg/dL 70-110 H Lab Interpretation (test cod e = 73866-5) Abnormal [facility] GLUCOSE (AUTOMATED)2022-05-13 23:25:03* Test Item Value Reference Range Interpretation Comme nts POCT GLU (test code = 4486426732) 226 mg/dL 70-110 H Lab Interpretation (test cod e = 99990-0) Abnormal [facility] GLUCOSE (AUTOMATED)2022-05-13 23:25:03* Test Item Value Reference Range Interpretation Comme nts POCT GLU (test code = 2360119943) 226 mg/dL 70-110 H Lab Interpretation (test cod e = 42375-5) Abnormal [facility] GLUCOSE (AUTOMATED)2022-05-13 18:37:54* Test Item Value Reference Range Interpretation Comme nts POCT GLU (test code = 0185100885) 204 mg/dL 70-110 H Lab Interpretation (test cod e = 95510-0) Abnormal [facility] GLUCOSE (AUTOMATED)2022-05-13 18:37:54* Test Item Value Reference Range Interpretation Comme nts POCT GLU (test code = 3746657380) 204 mg/dL 70-110 H Lab Interpretation (test cod e = 59723-6) Abnormal [facility] GLUCOSE (AUTOMATED)2022-05-13 15:19:05* Test Item Value Reference Range Interpretation Comme nts POCT GLU (test code = 4899940422) 193 mg/dL 70-110 H Lab Interpretation (test cod e = 26024-9) [facility] 15:19:05* Test Item Value Reference Range Interpretation Comme nts POCT GLU (test code = 8577902285) 193 mg/dL 70-110 H Lab Interpretation (test cod e = 52623-9) Abnormal [facility] GLUCOSE (AUTOMATED)2022-05-13 06:45:36* Test Item Value Reference Range Interpretation Comme nts POCT GLU (test code = 1850390639) 161 mg/dL 70-110 H Lab Interpretation (test cod e = 37723-3) Abnormal [facility] GLUCOSE (AUTOMATED)2022-05-13 06:45:36* Test Item Value Reference Range Interpretation Comme nts POCT GLU (test code = 9537831932) 161 mg/dL 70-110 H Lab Interpretation (test cod e = 44572-0) Abnormal [facility] GLUCOSE (AUTOMATED)2022-05-13 03:00:00* Test Item Value Reference Range Interpretation Comme nts POCT GLU (test code = 7160136481) 311 mg/dL 70-110 H Lab Interpretation (test cod e = 92065-3) Abnormal [facility] GLUCOSE (AUTOMATED)2022-05-13 03:00:00* Test Item Value Reference Range Interpretation Comme nts POCT GLU (test code = 7587385933) 311 mg/dL 70-110 H Lab Interpretation (test cod e = 96058-9) Abnormal [facility] GLUCOSE (AUTOMATED)2022-05-13 00:46:16* Test Item Value Reference Range Interpretation Comme nts POCT GLU (test code = 9619843958) 135 mg/dL 70-110 H Lab Interpretation (test cod e = 43511-4) Abnormal [facility] GLUCOSE (AUTOMATED)2022-05-13 00:46:16* Test Item Value Reference Range Interpretation Comme nts POCT GLU (test code = 6499921945) 135 mg/dL 70-110 H Lab Interpretation (test cod e = 72509-5) Abnormal [facility] GLUCOSE (AUTOMATED)2022-05-12 17:42:03* Test Item Value Reference Range Interpretation Comme nts POCT GLU (test code = 3021342985) 204 mg/dL 70-110 H Lab Interpretation (test cod e = 46581-3) [facility] 17:42:03* Test Item Value Reference Range Interpretation Comme nts POCT GLU (test code = 8536999848) 204 mg/dL 70-110 H Lab Interpretation (test cod e = 90741-4) [facility] 15:39:26* Test Item Value Reference Range Interpretation Comme nts POCT GLU (test code = 8125025179) 180 mg/dL 70-110 H Lab Interpretation (test cod e = 31999-2) Abnormal [facility] GLUCOSE (AUTOMATED)2022-05-12 15:39:26* Test Item Value Reference Range Interpretation Comme nts POCT GLU (test code = 7571413257) 180 mg/dL 70-110 H Lab Interpretation (test cod e = 36888-3) [facility] 02:50:51* Test Item Value Reference Range Interpretation Comme nts POCT GLU (test code = 9158965087) 214 mg/dL 70-110 H Lab Interpretation (test cod e = 55667-7) [facility] 02:50:51* Test Item Value Reference Range Interpretation Comme nts POCT GLU (test code = 1563947938) 214 mg/dL 70-110 H Lab Interpretation (test cod e = 12026-7) [facility] 23:41:52* Test Item Value Reference Range Interpretation Comme nts POCT GLU (test code = 3619484416) 317 mg/dL 70-110 H Lab Interpretation (test cod e = 96391-5) Abnormal [facility] GLUCOSE (AUTOMATED)2022-05-11 23:41:52* Test Item Value Reference Range Interpretation Comme nts POCT GLU (test code = 3238909158) 317 mg/dL 70-110 H Lab Interpretation (test cod e = 96523-5) [facility] 17:39:02* Test Item Value Reference Range Interpretation Comme nts POCT GLU (test code = 8353367231) 286 mg/dL 70-110 H Lab Interpretation (test cod e = 41064-1) [facility] 17:39:02* Test Item Value Reference Range Interpretation Comme nts POCT GLU (test code = 6613929666) 286 mg/dL 70-110 H Lab Interpretation (test cod e = 73600-8) [facility] 14:02:36* Test Item Value Reference Range Interpretation Comme nts POCT GLU (test code = 5925365861) 191 mg/dL 70-110 H Lab Interpretation (test cod e = 47581-0) Abnormal [facility] GLUCOSE (AUTOMATED)2022-05-11 14:02:36* Test Item Value Reference Range Interpretation Comme nts POCT GLU (test code = 8333645207) 191 mg/dL 70-110 H Lab Interpretation (test cod e = 23705-2) Abnormal [facility] GLUCOSE (AUTOMATED)2022-05-11 01:51:30* Test Item Value Reference Range Interpretation Comme nts POCT GLU (test code = 4962957023) 133 mg/dL 70-110 H Lab Interpretation (test cod e = 95698-2) Abnormal [facility] GLUCOSE (AUTOMATED)2022-05-11 01:51:30* Test Item Value Reference Range Interpretation Comme nts POCT GLU (test code = 8149672145) 133 mg/dL 70-110 H Lab Interpretation (test cod e = 86937-9) [facility] 23:37:15* Test Item Value Reference Range Interpretation Comme nts POCT GLU (test code = 0372561988) 124 mg/dL 70-110 H Lab Interpretation (test cod e = 98739-8) [facility] 23:37:15* Test Item Value Reference Range Interpretation Comme nts POCT GLU (test code = 6067366147) 124 mg/dL 70-110 H Lab Interpretation (test cod e = 90747-3) [facility] 18:10:39* Test Item Value Reference Range Interpretation Comme nts Height (test code = 8109040049) in Weight (test code = 0106075945) lbs Systolic BP (test code = 5332511718) mmHg Diastolic BP (test code = 1031754668) mmHg Heart Rate (test code = 0185499252) bpm BSA (test code = 3359635448) 1.[address] Depresion (mm) (test code = 3872015763) 0 mm LVIDD (test code = 2803184569) 6.50 cm Left Ventricular End Diastolic Volume by Teichholz Method (test code = 8197244) 214.3 mL IVS (test code = 6335990246) 0.88 cm Interventricular Septum Diastolic Thickness by 2D (test code = 5610562) 0.88 cm LVPWD (test code = 6567443033) 1.02 cm PW (test code = 5814796824) 1.02 cm 0.6-1.1 LAV(MOD-sp4) (test code = 9200454324) 116.20 mL LA Volume Index (BP) (test code = 1440888680) 62.2 mL/m2 LA volume (BP) (test code = 1546168623) 123.4 mL LAV(MOD-sp2) (test code = 6598209389) 124.50 mL MV Peak A Jayme (test code = 5322669597) 73.5 cm/s MV Peak E Jayme (test code = 1124314619) 132.8 cm/s E/A ratio (test code = 9385573315) ratio Radiology Study observation (narrative) (test code = 83164-3) INDIRA (test code = INDIRA) Table formatting f rom the original result was not included. ?Left?Ventricle: [...] mid inferolateral.Other segments could not be evaluated. [facility] 2022-05-10 18:10:39* Test Item Value Reference Range Interpretation Comme nts Height (test code = 5276857466) in Weight (test code = 1321012187) lbs Systolic BP (test code = 4407039952) mmHg Diastolic BP (test code = 7207034781) mmHg Heart Rate (test code = 3110564889) bpm BSA (test code = 3097938604) 1.[address] Depresion (mm) (test code = 5268147697) 0 mm LVIDD (test code = 7420770110) 6.50 cm Left Ventricular End Diastolic Volume by Teichholz Method (test code = 5704104) 214.3 mL IVS (test code = 4795498434) 0.88 cm Interventricular Septum Diastolic Thickness by 2D (test code = 8127497) 0.88 cm LVPWD (test code = 3800851434) 1.02 cm PW (test code = 7141470484) 1.02 cm 0.6-1.1 LAV(MOD-sp4) (test code = 7259011981) 116.20 mL LA Volume Index (BP) (test code = 3820221138) 62.2 mL/m2 LA volume (BP) (test code = 0829435634) 123.4 mL LAV(MOD-sp2) (test code = 2138906882) 124.50 mL MV Peak A Jayme (test code = 5349754270) 73.5 cm/s MV Peak E Jayme (test code = 1159503826) 132.8 cm/s E/A ratio (test code = 6785348512) ratio Radiology Study observation (narrative) (test code = 30917-4) INDIRA (test code = INDIRA) Table formatting f rom the original result was not included. ?Left?Ventricle: [...] mid inferolateral.Other segments could not be evaluated. [facility] GLUCOSE (AUTOMATED)2022-05-10 17:56:56* Test Item Value Reference Range Interpretation Comme nts POCT GLU (test code = 2553668390) 155 mg/dL 70-110 H Lab Interpretation (test cod e = 12030-1) Abnormal [facility] GLUCOSE (AUTOMATED)2022-05-10 17:56:56* Test Item Value Reference Range Interpretation Comme nts POCT GLU (test code = 4113425846) 155 mg/dL 70-110 H Lab Interpretation (test cod e = 39000-4) Abnormal [facility] GLUCOSE (AUTOMATED)2022-05-10 14:18:39* Test Item Value Reference Range Interpretation Comme nts POCT GLU (test code = 3754439716) 138 mg/dL 70-110 H Lab Interpretation (test cod e = 98745-7) Abnormal [facility] GLUCOSE (AUTOMATED)2022-05-10 14:18:39* Test Item Value Reference Range Interpretation Comme nts POCT GLU (test code = 8361604579) 138 mg/dL 70-110 H Lab Interpretation (test cod e = 68190-5) Abnormal [facility] GLUCOSE (AUTOMATED)2022-05-10 02:08:53* Test Item Value Reference Range Interpretation Comme nts POCT GLU (test code = 6224945406) 149 mg/dL 70-110 H Lab Interpretation (test cod e = 94237-8) Abnormal [facility] GLUCOSE (AUTOMATED)2022-05-10 02:08:53* Test Item Value Reference Range Interpretation Comme nts POCT GLU (test code = 0020870324) 149 mg/dL 70-110 H Lab Interpretation (test cod e = 36093-8) Abnormal [facility] GLUCOSE (AUTOMATED)2022-05-09 22:36:48* Test Item Value Reference Range Interpretation Comme nts POCT GLU (test code = 6288465926) 215 mg/dL 70-110 H Lab Interpretation (test cod e = 80724-3) Abnormal [facility] GLUCOSE (AUTOMATED)2022-05-09 22:36:48* Test Item Value Reference Range Interpretation Comme nts POCT GLU (test code = 8052821685) 215 mg/dL 70-110 H Lab Interpretation (test cod e = 31609-8) Abnormal [facility] GLUCOSE (AUTOMATED)2022-05-09 18:10:26* Test Item Value Reference Range Interpretation Comme nts POCT GLU (test code = 8000216448) 251 mg/dL 70-110 H Lab Interpretation (test cod e = 40986-1) Abnormal [facility] GLUCOSE (AUTOMATED)2022-05-09 18:10:26* Test Item Value Reference Range Interpretation Comme nts POCT GLU (test code = 7165514797) 251 mg/dL 70-110 H Lab Interpretation (test cod e = 74378-7) Abnormal [facility] GLUCOSE (AUTOMATED)2022-05-09 14:50:33* Test Item Value Reference Range Interpretation Comme nts POCT GLU (test code = 0212537973) 106 mg/dL 70-110 Lab Interpretation (test cod e = 65772-6) Normal [facility] GLUCOSE (AUTOMATED)2022-05-09 14:50:33* Test Item Value Reference Range Interpretation Comme nts POCT GLU (test code = 3744937641) 106 mg/dL 70-110 Lab Interpretation (test cod e = 99389-5) Normal [facility] GLUCOSE (AUTOMATED)2022-05-09 03:19:47* Test Item Value Reference Range Interpretation Comme nts POCT GLU (test code = 0351634125) 137 mg/dL 70-110 H Lab Interpretation (test cod e = 31482-3) Abnormal [facility] GLUCOSE (AUTOMATED)2022-05-09 03:19:47* Test Item Value Reference Range Interpretation Comme nts POCT GLU (test code = 5254269126) 137 mg/dL 70-110 H Lab Interpretation (test cod e = 66681-5) Abnormal [facility] GLUCOSE (AUTOMATED)2022-05-08 23:14:52* Test Item Value Reference Range Interpretation Comme nts POCT GLU (test code = 5399788271) 141 mg/dL 70-110 H Lab Interpretation (test cod e = 97256-2) Abnormal [facility] GLUCOSE (AUTOMATED)2022-05-08 23:14:52* Test Item Value Reference Range Interpretation Comme nts POCT GLU (test code = 6301714573) 141 mg/dL 70-110 H Lab Interpretation (test cod e = 61775-5) [facility] Surface Antibody (HBsAb)2022-05-08 23:05:34* Test Item Value Reference Range Interpretation Comme nts HBsAB (test code = 3155380768) Negative HBsAb Semi-Quantitative (test code = 2475637857) 0.00 mIU/mL INDIRA (test code = INDIRA) Interpretation: ?Hepatitis B Surface Antibody ? Negative - Patient is considered to be not immune to infection with HBV. ? ? Positive - Anti-HBs detected at greater than or equal to 12 mIU/mL. ?Patient is considered to be immune to infection with HBV. ? [facility] B Surface Antibody (HBsAb)2022-05-08 23:05:34* Test Item Value Reference Range Interpretation Comme nts HBsAB (test code = 5463313843) Negative HBsAb Semi-Quantitative (test code = 9071821387) mIU/mL INDIRA (test code = INDIRA) Interpretation: ?Hepatitis B Surface Antibody ? Negative - Patient is considered to be not immune to infection with HBV. ? ? Positive - Anti-HBs detected at greater than or equal to 12 mIU/mL. ?Patient is considered to be immune to infection with HBV. ? [facility] GLUCOSE (AUTOMATED)2022-05-08 18:07:50* Test Item Value Reference Range Interpretation Comme nts POCT GLU (test code = 5664806818) 186 mg/dL 70-110 H Lab Interpretation (test cod e = 96376-5) Abnormal [facility] GLUCOSE (AUTOMATED)2022-05-08 18:07:50* Test Item Value Reference Range Interpretation Comme nts POCT GLU (test code = 8828802867) 186 mg/dL 70-110 H Lab Interpretation (test cod e = 69446-8) Abnormal [facility] GLUCOSE (AUTOMATED)2022-05-08 15:24:48* Test Item Value Reference Range Interpretation Comme nts POCT GLU (test code = 1752152572) 99 mg/dL 70-110 Lab Interpretation (test cod e = 72737-8) Normal [facility] GLUCOSE (AUTOMATED)2022-05-08 15:24:48* Test Item Value Reference Range Interpretation Comme nts POCT GLU (test code = 8239797931) 99 mg/dL 70-110 Lab Interpretation (test cod e = 77661-1) Normal [facility] GLUCOSE (AUTOMATED)2022-05-08 04:39:05* Test Item Value Reference Range Interpretation Comme nts POCT GLU (test code = 3329390675) 104 mg/dL 70-110 Lab Interpretation (test cod e = 34994-7) Normal [facility] GLUCOSE (AUTOMATED)2022-05-08 04:39:05* Test Item Value Reference Range Interpretation Comme nts POCT GLU (test code = 6637402636) 104 mg/dL 70-110 Lab Interpretation (test cod e = 74198-6) Normal [facility] GLUCOSE (AUTOMATED)2022-05-07 23:10:18* Test Item Value Reference Range Interpretation Comme nts POCT GLU (test code = 1681941270) 133 mg/dL 70-110 H Lab Interpretation (test cod e = 07833-5) [facility] 23:10:18* Test Item Value Reference Range Interpretation Comme nts POCT GLU (test code = 8556367681) 133 mg/dL 70-110 H Lab Interpretation (test cod e = 82001-7) [facility] 18:50:35* Test Item Value Reference Range Interpretation Comme nts POCT GLU (test code = 4174708442) 225 mg/dL 70-110 H Lab Interpretation (test cod e = 36873-9) [facility] 18:50:35* Test Item Value Reference Range Interpretation Comme nts POCT GLU (test code = 0870741309) 225 mg/dL 70-110 H Lab Interpretation (test cod e = 93810-5) Abnormal [facility] GLUCOSE (AUTOMATED)2022-05-07 14:35:45* Test Item Value Reference Range Interpretation Comme nts POCT GLU (test code = 3519100372) 133 mg/dL 70-110 H Lab Interpretation (test cod e = 56301-8) [facility] 14:35:45* Test Item Value Reference Range Interpretation Comme nts POCT GLU (test code = 4065839952) 133 mg/dL 70-110 H Lab Interpretation (test cod e = 34797-2) [facility] 05:24:01* Test Item Value Reference Range Interpretation Comme nts POCT GLU (test code = 6719525508) 167 mg/dL 70-110 H Lab Interpretation (test cod e = 44451-8) [facility] 05:24:01* Test Item Value Reference Range Interpretation Comme nts POCT GLU (test code = 9023084371) 167 mg/dL 70-110 H Lab Interpretation (test cod e = 82750-1) Abnormal [facility] GLUCOSE (AUTOMATED)2022-05-07 00:18:44* Test Item Value Reference Range Interpretation Comme nts POCT GLU (test code = 5575968963) 148 mg/dL 70-110 H Lab Interpretation (test cod e = 75160-0) Abnormal [facility] GLUCOSE (AUTOMATED)2022-05-07 00:18:44* Test Item Value Reference Range Interpretation Comme nts POCT GLU (test code = 3167800250) 148 mg/dL 70-110 H Lab Interpretation (test cod e = 05056-4) Abnormal [facility] GLUCOSE (AUTOMATED)2022-05-06 19:47:24* Test Item Value Reference Range Interpretation Comme nts POCT GLU (test code = 5583783789) 154 mg/dL 70-110 H Lab Interpretation (test cod e = 71179-0) Abnormal [facility] GLUCOSE (AUTOMATED)2022-05-06 19:47:24* Test Item Value Reference Range Interpretation Comme nts POCT GLU (test code = 0523130694) 154 mg/dL 70-110 H Lab Interpretation (test cod e = 81386-5) Abnormal [facility] GLUCOSE (AUTOMATED)2022-05-06 18:03:43* Test Item Value Reference Range Interpretation Comme nts POCT GLU (test code = 9194761737) 175 mg/dL 70-110 H Lab Interpretation (test cod e = 13146-6) Abnormal [facility] GLUCOSE (AUTOMATED)2022-05-06 18:03:43* Test Item Value Reference Range Interpretation Comme nts POCT GLU (test code = 6738364553) 175 mg/dL 70-110 H Lab Interpretation (test cod e = 48292-8) Abnormal [facility] GLUCOSE (AUTOMATED)2022-05-06 14:21:33* Test Item Value Reference Range Interpretation Comme nts POCT GLU (test code = 3564810662) 122 mg/dL 70-110 H Lab Interpretation (test cod e = 33346-7) Abnormal [facility] GLUCOSE (AUTOMATED)2022-05-06 14:21:33* Test Item Value Reference Range Interpretation Comme nts POCT GLU (test code = 3671461187) 122 mg/dL 70-110 H Lab Interpretation (test cod e = 77706-4) Abnormal [facility] GLUCOSE (AUTOMATED)2022-05-06 04:41:52* Test Item Value Reference Range Interpretation Comme nts POCT GLU (test code = 2878855102) 166 mg/dL 70-110 H Lab Interpretation (test cod e = 50971-8) Abnormal [facility] GLUCOSE (AUTOMATED)2022-05-06 04:41:52* Test Item Value Reference Range Interpretation Comme nts POCT GLU (test code = 2527556581) 166 mg/dL 70-110 H Lab Interpretation (test cod e = 15369-8) Abnormal [facility] GLUCOSE (AUTOMATED)2022-05-05 22:57:50* Test Item Value Reference Range Interpretation Comme nts POCT GLU (test code = 8343108443) 146 mg/dL 70-110 H Lab Interpretation (test cod e = 34361-2) Abnormal [facility] GLUCOSE (AUTOMATED)2022-05-05 22:57:50* Test Item Value Reference Range Interpretation Comme nts POCT GLU (test code = 7251066473) 146 mg/dL 70-110 H Lab Interpretation (test cod e = 19756-0) Abnormal [facility] GLUCOSE (AUTOMATED)2022-05-05 18:28:38* Test Item Value Reference Range Interpretation Comme nts POCT GLU (test code = 2769093615) 131 mg/dL 70-110 H Lab Interpretation (test cod e = 87327-2) Abnormal [facility] GLUCOSE (AUTOMATED)2022-05-05 18:28:38* Test Item Value Reference Range Interpretation Comme nts POCT GLU (test code = 3636664226) 131 mg/dL 70-110 H Lab Interpretation (test cod e = 63712-5) Abnormal [facility] GLUCOSE (AUTOMATED)2022-05-05 14:22:11* Test Item Value Reference Range Interpretation Comme nts POCT GLU (test code = 1429584643) 107 mg/dL 70-110 Lab Interpretation (test cod e = 54303-7) Normal [facility] GLUCOSE (AUTOMATED)2022-05-05 14:22:11* Test Item Value Reference Range Interpretation Comme nts POCT GLU (test code = 4137367554) 107 mg/dL 70-110 Lab Interpretation (test cod e = 07359-0) Normal [facility] GLUCOSE (AUTOMATED)2022-05-05 02:50:12* Test Item Value Reference Range Interpretation Comme nts POCT GLU (test code = 6199670290) 131 mg/dL 70-110 H Lab Interpretation (test cod e = 90579-5) [facility] 02:50:12* Test Item Value Reference Range Interpretation Comme nts POCT GLU (test code = 6233019874) 131 mg/dL 70-110 H Lab Interpretation (test cod e = 01554-6) [facility] 23:30:39* Test Item Value Reference Range Interpretation Comme nts POCT GLU (test code = 4823253824) 135 mg/dL 70-110 H Lab Interpretation (test cod e = 04669-0) Abnormal [facility] GLUCOSE (AUTOMATED)2022-05-04 23:30:39* Test Item Value Reference Range Interpretation Comme nts POCT GLU (test code = 1071867775) 135 mg/dL 70-110 H Lab Interpretation (test cod e = 16516-2) Abnormal [facility] GLUCOSE (AUTOMATED)2022-05-04 18:28:39* Test Item Value Reference Range Interpretation Comme nts POCT GLU (test code = 1686763286) 160 mg/dL 70-110 H Lab Interpretation (test cod e = 06144-3) Abnormal [facility] GLUCOSE (AUTOMATED)2022-05-04 18:28:39* Test Item Value Reference Range Interpretation Comme nts POCT GLU (test code = 7168796073) 160 mg/dL 70-110 H Lab Interpretation (test cod e = 72742-2) Abnormal [facility] GLUCOSE (AUTOMATED)2022-05-04 14:50:13* Test Item Value Reference Range Interpretation Comme nts POCT GLU (test code = 0712271531) 126 mg/dL 70-110 H Lab Interpretation (test cod e = 66006-8) Abnormal [facility] GLUCOSE (AUTOMATED)2022-05-04 14:50:13* Test Item Value Reference Range Interpretation Comme nts POCT GLU (test code = 7210722658) 126 mg/dL 70-110 H Lab Interpretation (test cod e = 11212-9) Abnormal [facility] GLUCOSE (AUTOMATED)2022-05-04 03:14:07* Test Item Value Reference Range Interpretation Comme nts POCT GLU (test code = 3855268145) 140 mg/dL 70-110 H Lab Interpretation (test cod e = 46053-9) Abnormal [facility] GLUCOSE (AUTOMATED)2022-05-04 03:14:07* Test Item Value Reference Range Interpretation Comme nts POCT GLU (test code = 8417467611) 140 mg/dL 70-110 H Lab Interpretation (test cod e = 05111-3) [facility] 01:53:20* Test Item Value Reference Range Interpretation Comme nts Height (test code = 2301181834) in Weight (test code = 2190289315) lbs Systolic BP (test code = 0045849369) mmHg Diastolic BP (test code = 7475878583) mmHg Heart Rate (test code = 9487446405) bpm BSA (test code = 2021273169) 1.99 m2 LVOT stroke volume (test code = 5990371751) 62.90 cm3 EF(Teich) (test code = 9519163292) 51.40 % LVIDD (test code = 1066556492) 6.00 cm LVIDS (test code = 0294832555) 4.40 cm Left Ventricular End Systolic Volume by Teichholz Method (test code = 3414655) 85.9 mL Left Ventricular End Diastolic Volume by Teichholz Method (test code = 6637210) 176.7 mL IVS (test code = 4043451263) 0.95 cm LVPWD (test code = 3854834167) 0.95 cm LVOT diameter (test code = 2886552178) 2.16 cm LVOT area (test code = 3506059286) 3.70 cm2 FS (test code = 6736240899) 27 % MV Peak E Jayme (test code = 3984568148) 137.7 cm/s MV Peak A Jayme (test code = 1524547382) 89.4 cm/s E/A ratio (test code = 1297679360) ratio E wave decelartion time (test code = 7916656170) 0.16 s MV E/e' septal (test code = 2888195316) 4.6 cm/s LA Volume Index (BP) (test code = 8185934234) 48.7 mL/m2 LA volume (BP) (test code = 4086682754) 96.9 mL LVOT peak jayme (test code = 4004692756) 90.6 cm/s LVOT mn grad (test code = 6212801944) mmHg LA size (test code = 6459334050) 4.5 cm LAV(MOD-sp2) (test code = 7914195681) 105.10 mL LAV(MOD-sp4) (test code = 6037385137) 80.90 mL Tapse (test code = 4072545056) 1.82 cm Aortic valve mean velocity (test code = 8658522544) 113.1 cm/s Ao peak jayme (test code = 2174190156) 186.0 cm/s Ao VTI (test code = 7249655828) 32.9 cm AV LVOT peak gradient (test code = 7182940145) mmHg LVOT peak VTI (test code = 6286757824) 17.2 cm AV area by cont VTI (test code = 6934957747) 1.9 cm2 AV area peak jayme (test code = 1928113824) 1.8 cm2 LV V1 mean (test code = 7042618063) 56.60 cm/s Ao max PG (test code = 9125938952) 13.80 mm[Hg] MV Prop V (test code = 8250955557) 41.90 cm/s TR Peak Jayme (test code = 4548268913) 352.5 cm/s Triscuspid Valve Regurgitation Peak Gradient (test code = 3031723211) mmHg Ao root diam (test code = 1066240934) 3.00 cm AV peak gradient (test code = 2799175234) mmHg AV valve area (test code = 3896568774) 1.91 cm2 AV mean gradient (test code = 8802304180) mmHg Aortic root (test code = 6828903959) 3.0 cm Ao root annulus (test code = 6208298423) 3.0 cm PW (test code = 3171341032) 0.95 cm 0.6-1.1 EF - 2D (test code = 15256515) 51.40 % Interventricular Septum Diastolic Thickness by 2D (test code = 2913212) 0.95 cm A4C EF (test code = 0610762287) 23.50 % EF(sp4-el) (test code = 3423584452) 25.00 % SV(MOD-sp4) (test code = 6956506439) 49.40 mL SV(sp4-el) (test code = 9297212538) 55.60 mL LV Diastolic Volume (BP) (test code = 1187761435) 208.5 mL A2C EF (test code = 1141067852) 25.80 % EF(MOD-bp) (test code = 2836404625) 23.90 % EF(sp2-el) (test code = 9233623083) 24.20 % LV Systolic Volume (BP) (test code = 9599590077) 158.6 mL SV(MOD-bp) (test code = 7127239911) 49.90 mL SV(MOD-sp2) (test code = 6155473603) 52.70 mL EF (test code = 2780668992) Left Ventricular Stroke Volume by 2-D Biplane-MOD (test code = 0078759) 49.9 mL LV Diastolic Volume Index (BP) (test code = 5538763916) 104.8 mL/m2 LV Systolic Volume Index (BP) (test code = 5592062556) 79.7 mL/m2 Radiology Study observation (narrative) (test code = 85694-0) INDIRA (test code = INDIRA) ?Left?Ventricle: Left [...] ValveMitral valve structure is normal. Mild transvalvular regurgitation.Tricusp id ValveTricuspid valve structure is normal. Trace transvalvular regurgitation. Right ventricular systolic pressure is 55-60 mmHg.Aortic ValveAortic valve opens well. No transvalvular regurgitation. No evidence of aortic stenosis.Pulmonic ValveNot well visualized. Pulmonic valve is normal in structure and function.Ascending AortaNormal sized annulus and sinus of Valsalva.PericardiumS mall pericardial effusion present.Study DetailsA complete echocardiogram was performed using 2D, color flow Doppler and spectral Doppler. The apical, parasternal and subcostal views were obtained. 3 mL of Optison ultrasound enhancing agent used. [facility] 01:53:20* Test Item Value Reference Range Interpretation Comme nts Height (test code = 4776545031) in Weight (test code = 7627245957) lbs Systolic BP (test code = 3196723882) mmHg Diastolic BP (test code = 6104175778) mmHg Heart Rate (test code = 7115622461) bpm BSA (test code = 9627728292) 1.99 m2 LVOT stroke volume (test code = 6847053614) 62.90 cm3 EF(Teich) (test code = 4337631860) 51.40 % LVIDD (test code = 5679263364) 6.00 cm LVIDS (test code = 0870509502) 4.40 cm Left Ventricular End Systolic Volume by Teichholz Method (test code = 7142303) 85.9 mL Left Ventricular End Diastolic Volume by Teichholz Method (test code = 0673882) 176.7 mL IVS (test code = 3125805226) 0.95 cm LVPWD (test code = 6755928646) 0.95 cm LVOT diameter (test code = 0222604828) 2.16 cm LVOT area (test code = 8344842930) 3.70 cm2 FS (test code = 7061764983) 27 % MV Peak E Jayme (test code = 0451565537) 137.7 cm/s MV Peak A Jayme (test code = 7069898963) 89.4 cm/s E/A ratio (test code = 1678217009) ratio E wave decelartion time (test code = 7236443903) 0.16 s MV E/e' septal (test code = 0591272284) 4.6 cm/s LA Volume Index (BP) (test code = 3977499664) 48.7 mL/m2 LA volume (BP) (test code = 8002495921) 96.9 mL LVOT peak jayme (test code = 6011272515) 90.6 cm/s LVOT mn grad (test code = 7763362460) mmHg LA size (test code = 3897565231) 4.5 cm LAV(MOD-sp2) (test code = 5952838296) 105.10 mL LAV(MOD-sp4) (test code = 3530115726) 80.90 mL Tapse (test code = 8133654535) 1.82 cm Aortic valve mean velocity (test code = 8670224614) 113.1 cm/s Ao peak jayme (test code = 1396332286) 186.0 cm/s Ao VTI (test code = 9358086384) 32.9 cm AV LVOT peak gradient (test code = 6724289938) mmHg LVOT peak VTI (test code = 7075475579) 17.2 cm AV area by cont VTI (test code = 4619969753) 1.9 cm2 AV area peak jayme (test code = 4409326798) 1.8 cm2 LV V1 mean (test code = 5658668339) 56.60 cm/s Ao max PG (test code = 3942599694) 13.80 mm[Hg] MV Prop V (test code = 6442505541) 41.90 cm/s TR Peak Jayme (test code = 6128602831) 352.5 cm/s Triscuspid Valve Regurgitation Peak Gradient (test code = 2271732286) mmHg Ao root diam (test code = 3581468705) 3.00 cm AV peak gradient (test code = 7330382504) mmHg AV valve area (test code = 0171633991) 1.91 cm2 AV mean gradient (test code = 9727716443) mmHg Aortic root (test code = 1775276075) 3.0 cm Ao root annulus (test code = 1592129209) 3.0 cm PW (test code = 8893180331) 0.95 cm 0.6-1.1 EF - 2D (test code = 38008612) 51.40 % Interventricular Septum Diastolic Thickness by 2D (test code = 2893300) 0.95 cm A4C EF (test code = 1477996183) 23.50 % EF(sp4-el) (test code = 8536200921) 25.00 % SV(MOD-sp4) (test code = 5950192591) 49.40 mL SV(sp4-el) (test code = 9037526046) 55.60 mL LV Diastolic Volume (BP) (test code = 2195609482) 208.5 mL A2C EF (test code = 1831226482) 25.80 % EF(MOD-bp) (test code = 2206637295) 23.90 % EF(sp2-el) (test code = 2504477745) 24.20 % LV Systolic Volume (BP) (test code = 4668635087) 158.6 mL SV(MOD-bp) (test code = 4915694203) 49.90 mL SV(MOD-sp2) (test code = 0367570128) 52.70 mL EF (test code = 9571828148) Left Ventricular Stroke Volume by 2-D Biplane-MOD (test code = 8304694) 49.9 mL LV Diastolic Volume Index (BP) (test code = 6824019061) 104.8 mL/m2 LV Systolic Volume Index (BP) (test code = 4488593538) 79.7 mL/m2 Radiology Study observation (narrative) (test code = 99367-7) INDIRA (test code = INDIRA) ?Left?Ventricle: Left [...] ValveMitral valve structure is normal. Mild transvalvular regurgitation.Tricusp id ValveTricuspid valve structure is normal. Trace transvalvular regurgitation. Right ventricular systolic pressure is 55-60 mmHg.Aortic ValveAortic valve opens well. No transvalvular regurgitation. No evidence of aortic stenosis.Pulmonic ValveNot well visualized. Pulmonic valve is normal in structure and function.Ascending AortaNormal sized annulus and sinus of Valsalva.PericardiumS mall pericardial effusion present.Study DetailsA complete echocardiogram was performed using 2D, color flow Doppler and spectral Doppler. The apical, parasternal and subcostal views were obtained. 3 mL of Optison ultrasound enhancing agent used. [facility] GLUCOSE (AUTOMATED)2022-05-03 23:03:58* Test Item Value Reference Range Interpretation Comme nts POCT GLU (test code = 0689163631) 143 mg/dL 70-110 H Lab Interpretation (test cod e = 88464-5) Abnormal [facility] GLUCOSE (AUTOMATED)2022-05-03 23:03:58* Test Item Value Reference Range Interpretation Comme nts POCT GLU (test code = 0393474371) 143 mg/dL 70-110 H Lab Interpretation (test cod e = 66645-1) Abnormal [facility] GLUCOSE (AUTOMATED)2022-05-03 18:19:06* Test Item Value Reference Range Interpretation Comme nts POCT GLU (test code = 7925523462) 182 mg/dL 70-110 H Lab Interpretation (test cod e = 39252-9) Abnormal [facility] GLUCOSE (AUTOMATED)2022-05-03 18:19:06* Test Item Value Reference Range Interpretation Comme nts POCT GLU (test code = 5826594895) 182 mg/dL 70-110 H Lab Interpretation (test cod e = 29813-7) Abnormal [facility] GLUCOSE (AUTOMATED)2022-05-03 14:19:51* Test Item Value Reference Range Interpretation Comme nts POCT GLU (test code = 8145367504) 132 mg/dL 70-110 H Lab Interpretation (test cod e = 34149-6) Abnormal [facility] GLUCOSE (AUTOMATED)2022-05-03 14:19:51* Test Item Value Reference Range Interpretation Comme nts POCT GLU (test code = 3590454006) 132 mg/dL 70-110 H Lab Interpretation (test cod e = 78225-3) Abnormal [facility] Arterial Blood Gas.2022-05-03 07:51:10* Test Item Value Reference Range Interpretation Comme nts PH (test code = 2) 7.35-7.45 L PCO2 (test code = 3690064323) See_Comment H [Automated messa ge] The system which generated this result transmitted reference range: 35 - 45 mmHg. The reference range was not used to interpret this result as normal/abnormal. PO2 (test code = 9069518924) See_Comment L [Automated messa ge] The system which generated this result transmitted reference range: 80 - 100 mmHg. The reference range was not used to interpret this result as normal/abnormal. HCO3 (test code = 6876099783) See_Comment [Automated messa ge] The system which generated this result transmitted reference range: 22 - 26 mEq/L. The reference range was not used to interpret this result as normal/abnormal. BE (test code = 8931487058) See_Comment L [Automated messa ge] The system which generated this result transmitted reference range: -3.0 - 3.0 mEq/L. The reference range was not used to interpret this result as normal/abnormal. Lab Interpretation (test code = 82366-5) Abnormal [facility] Arterial Blood Gas.2022-05-03 07:51:10* Test Item Value Reference Range Interpretation Comme nts PH (test code = 2) 7.35-7.45 L PCO2 (test code = 1718387037) See_Comment H [Automated messa ge] The system which generated this result transmitted reference range: 35 - 45 mmHg. The reference range was not used to interpret this result as normal/abnormal. PO2 (test code = 7272482437) See_Comment L [Automated messa ge] The system which generated this result transmitted reference range: 80 - 100 mmHg. The reference range was not used to interpret this result as normal/abnormal. HCO3 (test code = 8639159697) See_Comment [Automated messa ge] The system which generated this result transmitted reference range: 22 - 26 mEq/L. The reference range was not used to interpret this result as normal/abnormal. BE (test code = 8404408037) See_Comment L [Automated messa ge] The system which generated this result transmitted reference range: -3.0 - 3.0 mEq/L. The reference range was not used to interpret this result as normal/abnormal. Lab Interpretation (test code = 48138-2) Abnormal [facility] Arterial Blood Gas.2022-05-03 07:51:10* Test Item Value Reference Range Interpretation Comme nts PH (test code = 2) 7.28 7.35-7.45 L PCO2 (test code = 2777195051) 48 See_Comment H [Automated messa ge] The system which generated this result transmitted reference range: 35 - 45 mmHg. The reference range was not used to interpret this result as normal/abnormal. PO2 (test code = 0657325552) 69 See_Comment L [Automated messa ge] The system which generated this result transmitted reference range: 80 - 100 mmHg. The reference range was not used to interpret this result as normal/abnormal. HCO3 (test code = 7012122291) 22 See_Comment [Automated messa ge] The system which generated this result transmitted reference range: 22 - 26 mEq/L. The reference range was not used to interpret this result as normal/abnormal. BE (test code = 2381248014) -5.0 See_Comment L [Automated messa ge] The system which generated this result transmitted reference range: -3.0 - 3.0 mEq/L. The reference range was not used to interpret this result as normal/abnormal. Lab Interpretation (test code = 37549-4) Abnormal [facility] GLUCOSE (AUTOMATED)2022-05-03 03:31:08* Test Item Value Reference Range Interpretation Comme nts POCT GLU (test code = 3369330752) 129 mg/dL 70-110 H Lab Interpretation (test cod e = 77354-7) Abnormal [facility] GLUCOSE (AUTOMATED)2022-05-03 03:31:08* Test Item Value Reference Range Interpretation Comme nts POCT GLU (test code = 3122404422) 129 mg/dL 70-110 H Lab Interpretation (test cod e = 26196-5) Abnormal [facility] GLUCOSE (AUTOMATED)2022-05-03 00:07:06* Test Item Value Reference Range Interpretation Comme nts POCT GLU (test code = 3503328821) 140 mg/dL 70-110 H Lab Interpretation (test cod e = 76508-3) Abnormal [facility] GLUCOSE (AUTOMATED)2022-05-03 00:07:06* Test Item Value Reference Range Interpretation Comme nts POCT GLU (test code = 9050936412) 140 mg/dL 70-110 H Lab Interpretation (test cod e = 67623-0) Abnormal [facility] GLUCOSE (AUTOMATED)2022-05-02 19:38:18* Test Item Value Reference Range Interpretation Comme nts POCT GLU (test code = 8967201133) 151 mg/dL 70-110 H Lab Interpretation (test cod e = 34640-0) Abnormal [facility] GLUCOSE (AUTOMATED)2022-05-02 19:38:18* Test Item Value Reference Range Interpretation Comme nts POCT GLU (test code = 3284907116) 151 mg/dL 70-110 H Lab Interpretation (test cod e = 04514-0) Abnormal [facility] GLUCOSE (AUTOMATED)2022-05-02 15:22:18* Test Item Value Reference Range Interpretation Comme nts POCT GLU (test code = 3043413221) 102 mg/dL 70-110 Lab Interpretation (test cod e = 28229-0) Normal [facility] GLUCOSE (AUTOMATED)2022-05-02 15:22:18* Test Item Value Reference Range Interpretation Comme nts POCT GLU (test code = 6872059603) 102 mg/dL 70-110 Lab Interpretation (test cod e = 91897-8) Normal [facility] GLUCOSE (AUTOMATED)2022-05-02 05:11:38* Test Item Value Reference Range Interpretation Comme nts POCT GLU (test code = 3327175576) 90 mg/dL 70-110 Lab Interpretation (test cod e = 37519-9) Normal [facility] GLUCOSE (AUTOMATED)2022-05-02 05:11:38* Test Item Value Reference Range Interpretation Comme nts POCT GLU (test code = 1946755350) 90 mg/dL 70-110 Lab Interpretation (test cod e = 07442-6) [facility]-02 04:00:41* Test Item Value Reference Range Interpretation Comme nts HGB A1C (test code = 4548-4) 5.9 % 4.0-5.7 H INDIRA (test code = INDIRA) Reference RangesNormal: <5.7%Prediabetes: 5.7 - 6.4%Diabetes: > 6.5% Lab Interpretation (test code = 09038-3) [facility]2022-05-02 04:00:41* Test Item Value Reference Range Interpretation Comme nts HGB A1C (test code = 4548-4) 5.9 % 4.0-5.7 H INDIRA (test code = INDIRA) Reference RangesNormal: <5.7%Prediabetes: 5.7 - 6.4%Diabetes: > 6.5% Lab Interpretation (test code = 95905-8) [facility]A1C[facility]2022-05-02 04:00:41* Test Item Value Reference Range Interpretation Comme nts HGB A1C (test code = 4548-4) 5.9 % 4.0-5.7 H INDIRA (test code = INDIRA) Reference RangesNormal: <5.7%Prediabetes: 5.7 - 6.4%Diabetes: > 6.5% Lab Interpretation (test code = 73739-7) Abnormal [facility] [id number] 02:09:40* Test Item Value Reference Range Interpretation Comme nts FERRITIN (test code = 6098090504) 159.0 ng/mL 11.0-264.0 INDIRA (test code = INDIRA) Biotin has been reported to cause a negative bias, interpret results relative to patient's use of biotin. Lab Interpretation (test code = 67026-9) Normal [facility] [id number] 02:09:40* Test Item Value Reference Range Interpretation Comme nts FERRITIN (test code = 5783746344) 159.0 ng/mL 11.0-264.0 INDIRA (test code = INDIRA) Biotin has been reported to cause a negative bias, interpret results relative to patient's use of biotin. Lab Interpretation (test code = 81025-7) Normal [facility] [id number] 02:09:40* Test Item Value Reference Range Interpretation Comme nts FERRITIN (test code = 1940827528) 159.0 ng/mL 11.0-264.0 INDIRA (test code = INDIRA) Biotin has been reported to cause a negative bias, interpret results relative to patient's use of biotin. Lab Interpretation (test code = 89923-1) Normal [facility] [id number] 01:41:39* Test Item Value Reference Range Interpretation Comme nts IRON (test code = 1798071599) 56 ug/dL 50-160 TIBC (test code = 8627501156) 325 ug/dL 250-410 % FE SAT (test code = 6963898343) 17 % 20-50 L Lab Interpretation (test cod e = 12014-4) Abnormal [facility] [id number] 01:41:39* Test Item Value Reference Range Interpretation Comme nts IRON (test code = 2317851452) 56 ug/dL 50-160 TIBC (test code = 6231031893) 325 ug/dL 250-410 % FE SAT (test code = 8880916724) 17 % 20-50 L Lab Interpretation (test cod e = 40950-2) [facility]normal [facility] [id number] 01:41:39* Test Item Value Reference Range Interpretation Comme nts IRON (test code = 8572553904) 56 ug/dL 50-160 TIBC (test code = 4069552117) 325 ug/dL 250-410 % FE SAT (test code = 4884949250) 17 % 20-50 L Lab Interpretation (test cod e = 39361-7) [facility]normal [facility] [id number] 19:50:59* Test Item Value Reference Range Interpretation Comme nts NT-proBNP (test code = 9110983790) 91512 pg/mL See_Comment H [Automated message] The system which generated this result transmitted reference range: <=125. The reference range was not used to interpret this result as normal/abnormal. INDIRA (test code = INDIRA) Biotin has been reported to cause a negative bias, interpret results relative to patient's use of biotin. Lab Interpretation (test code = 84726-4) Abnormal [facility]-TERMIN[facility] [id number] 19:50:59* Test Item Value Reference Range Interpretation Comme nts NT-proBNP (test code = 2349435807) 57864 pg/mL See_Comment H [Automated message] The system which generated this result transmitted reference range: <=125. The reference range was not used to interpret this result as normal/abnormal. INDIRA (test code = INDIRA) Biotin has been reported to cause a negative bias, interpret results relative to patient's use of biotin. Lab Interpretation (test code = 53478-2) Abnormal [facility] WITH [id number] 19:25:27* Test Item Value Reference Range Interpretation Comme nts WBC (test code = 6690-2) See_Comment [Automated messa ge] The system which generated this result transmitted reference range: 4.30 - 11.10 10*3/?L. The reference range was not used to interpret this result as normal/abnormal. RBC (test code = 789-8) See_Comment [Automated messa ge] The system which generated this result transmitted reference range: 3.93 - 5.25 10*6/?L. The reference range was not used to interpret this result as normal/abnormal. HGB (test code = 718-7) 12.3 g/dL 11.6-15.0 HCT (test code = 4544-3) 38.0 % 35.7-45.2 MCV (test code = 787-2) 91.6 fL 80.6-95.5 MCH (test code = 785-6) 29.6 pg 25.9-32.8 MCHC (test code = 786-4) 32.4 g/dL 31.6-35.1 RDW-SD (test code = 07243-2) 52.3 fL 39.0-49.9 H RDW-CV (test code = 788-0) 15.8 % 12.0-15.5 H PLT (test code = 777-3) See_Comment [Automated Like.coma ge] The system which generated this result transmitted reference range: 166 - 358 10*3/?L. The reference range was not used to interpret this result as normal/abnormal. MPV (test code = 57568-9) 11.2 fL 9.5-12.9 IPF % (test code = 9188817782) 1.6 % 1.3-7.7 Platelet count measured by fluorescence method. NRBC/100 WBC (test code = 4955467207) See_Comment [Automated Morphy ssage] The system which generated this result transmitted reference range: 0.0 - 10.0 /100 WBCs. The reference range was not used to interpret this result as normal/abnormal. NRBC x10^3 (test code = 7894649464) See_Comment [Automated Like.coma [employer]] The system which generated this result transmitted reference range: 10*3/?L. The reference range was not used to interpret this result as normal/abnormal. GRAN MAT (NEUT) % (test code = 770-8) 83.8 % IMM GRAN % (test code = 1425729727) 0.60 % LYMPH % (test code = 736-9) 9.0 % MONO % (test code = 5905-5) 5.0 % EOS % (test code = 713-8) 1.0 % BASO % (test code = 706-2) 0.6 % GRAN MAT x10^3(ANC) (test code = 3548933561) 7.04 10*3/uL 1.88-7.09 IMM GRAN x10^3 (test code = 6492710579) 0.05 10*3/uL 0.00-0.06 LYMPH x10^3 (test code = 731-0) 0.76 10*3/uL 1.32-3.29 L MONO x10^3 (test code = 742-7) 0.42 10*3/uL 0.33-0.92 EOS x10^3 (test code = 711-2) 0.08 10*3/uL 0.03-0.39 BASO x10^3 (test code = 704-7) 0.05 10*3/uL 0.01-0.07 JOANNE CELLS (test code = 7790-9) 2+ See_Comment A [Automated messa ge] The system which generated this result transmitted reference range: (none). The reference range was not used to interpret this result as normal/abnormal. ELLIPTO/OVAL (test code = 47427-7) 2+ See_Comment A [Automated messa ge] The system which generated this result transmitted reference range: (none). The reference range was not used to interpret this result as normal/abnormal. HJ BODIES (test code = 7793-3) Present A POLYCHROMASIA (test code = 12284-9) 2+ See_Comment [Automated messa ge] The system which generated this result transmitted reference range: 2+. The reference range was not used to interpret this result as normal/abnormal. SCHISTOCYTES (test code = 800-3) 1+ A TARGET CELLS (test code = 95764-3) 2+ See_Comment A [Automated messa ge] The system which generated this result transmitted reference range: (none). The reference range was not used to interpret this result as normal/abnormal. Lab Interpretation (test code = 91492-3) Abnormal [facility] WITH [id number] 19:25:27* Test Item Value Reference Range Interpretation Comme nts WBC (test code = 6690-2) 8.40 See_Comment [Automated messa ge] The system which generated this result transmitted reference range: 4.30 - 11.10 10*3/?L. The reference range was not used to interpret this result as normal/abnormal. RBC (test code = 789-8) 4.15 See_Comment [Automated Like.coma ge] The system which generated this result transmitted reference range: 3.93 - 5.25 10*6/?L. The reference range was not used to interpret this result as normal/abnormal. HGB (test code = 718-7) 12.3 g/dL 11.6-15.0 HCT (test code = 4544-3) 38.0 % 35.7-45.2 MCV (test code = 787-2) 91.6 fL 80.6-95.5 MCH (test code = 785-6) 29.6 pg 25.9-32.8 MCHC (test code = 786-4) 32.4 g/dL 31.6-35.1 RDW-SD (test code = 40329-7) 52.3 fL 39.0-49.9 H RDW-CV (test code = 788-0) 15.8 % 12.0-15.5 H PLT (test code = 777-3) 196 See_Comment [Automated Like.coma ge] The system which generated this result transmitted reference range: 166 - 358 10*3/?L. The reference range was not used to interpret this result as normal/abnormal. MPV (test code = 76849-5) 11.2 fL 9.5-12.9 IPF % (test code = 2395502106) 1.6 % 1.3-7.7 Platelet count measured by fluorescence method. NRBC/100 WBC (test code = 7841337360) 0.4 See_Comment [Automated Morphy ssage] The system which generated this result transmitted reference range: 0.0 - 10.0 /100 WBCs. The reference range was not used to interpret this result as normal/abnormal. NRBC x10^3 (test code = 7231000318) 0.03 See_Comment [Automated Like.coma ge] The system which generated this result transmitted reference range: 10*3/?L. The reference range was not used to interpret this result as normal/abnormal. GRAN MAT (NEUT) % (test code = 770-8) 83.8 % IMM GRAN % (test code = 5563277972) 0.60 % LYMPH % (test code = 736-9) 9.0 % MONO % (test code = 5905-5) 5.0 % EOS % (test code = 713-8) 1.0 % BASO % (test code = 706-2) 0.6 % GRAN MAT x10^3(ANC) (test code = 5182806022) 7.04 10*3/uL 1.88-7.09 IMM GRAN x10^3 (test code = 9914381027) 0.05 10*3/uL 0.00-0.06 LYMPH x10^3 (test code = 731-0) 0.76 10*3/uL 1.32-3.29 L MONO x10^3 (test code = 742-7) 0.42 10*3/uL 0.33-0.92 EOS x10^3 (test code = 711-2) 0.08 10*3/uL 0.03-0.39 BASO x10^3 (test code = 704-7) 0.05 10*3/uL 0.01-0.07 JOANNE CELLS (test code = 7790-9) 2+ See_Comment A [Automated messa ge] The system which generated this result transmitted reference range: (none). The reference range was not used to interpret this result as normal/abnormal. ELLIPTO/OVAL (test code = 04743-8) 2+ See_Comment A [Automated messa ge] The system which generated this result transmitted reference range: (none). The reference range was not used to interpret this result as normal/abnormal. HJ BODIES (test code = 7793-3) Present A POLYCHROMASIA (test code = 16857-8) 2+ See_Comment [Automated messa ge] The system which generated this result transmitted reference range: 2+. The reference range was not used to interpret this result as normal/abnormal. SCHISTOCYTES (test code = 800-3) 1+ A TARGET CELLS (test code = 53712-8) 2+ See_Comment A [Automated messa ge] The system which generated this result transmitted reference range: (none). The reference range was not used to interpret this result as normal/abnormal. Lab Interpretation (test code = 18342-9) Abnormal [facility] [id number] 19:12:22* Test Item Value Reference Range Interpretation Comments TROPONIN I (test code = 7759093597) 0.027 ng/mL See_Comment [Automated message] The system which generated this result transmitted reference range: <=0.034. The reference range was not used to interpret this result as normal/abnormal. INDIRA (test code = INDIRA) Reference (Normal) Range (defined by the 99th percentile reference [...] patient's use of biotin. Lab Interpretation (test code = 83150-3) Normal [facility] [id number] 19:12:22* Test Item Value Reference Range Interpretation Comments TROPONIN I (test code = 4310113379) 0.027 ng/mL See_Comment [Automated message] The system which generated this result transmitted reference range: <=0.034. The reference range was not used to interpret this result as normal/abnormal. INDIRA (test code = INDIRA) Reference (Normal) Range (defined by the 99th percentile reference [...] patient's use of biotin. Lab Interpretation (test code = 64022-3) [facility] (08527)2022-05-01 19:00:18* Test Item Value Reference Range Interpretation Comme nts NA (test code = 2437954326) 137 mmol/L 135-145 K (test code = 7439844917) 4.7 mmol/L 3.5-5.0 CL (test code = 1154387894) 107 mmol/L 98-108 CO2 TOTAL (test code = 5775599700) 17 mmol/L 23-31 L AGAP (test code = 2577604657) 2-16 BUN (test code = 6320541438) 79 mg/dL 7-23 H GLUCOSE (test code = 6150464645) 51 mg/dL 70-110 L CREATININE (test code = 3058587291) 6.62 mg/dL 0.50-1.04 H TOTAL BILI (test code = 3217183805) 0.6 mg/dL 0.1-1.1 CALCIUM (test code = 2099451977) 8.4 mg/dL 8.6-10.6 L T PROTEIN (test code = 9233266176) 6.7 g/dL 6.3-8.2 ALBUMIN (test code = 7059757206) 3.7 g/dL 3.5-5.0 ALK PHOS (test code = 7822840375) 107 U/L 34-122 ALTv (test code = 1742-6) 19 U/L 5-35 AST(SGOT) (test code = 8070318461) 30 U/L 13-40 eGFR (test code = 7632543098) mL/min/1.73m2 INDIRA (test code = INDIRA) Association of [...] or abnormalities in imaging tests). Lab Interpretation (test code = 90493-8) Abnormal [facility]. METABOLIC PANEL (60809)2022-05-01 19:00:18* Test Item Value Reference Range Interpretation Comme nts NA (test code = 5463274804) 137 mmol/L 135-145 K (test code = 6608573522) 4.7 mmol/L 3.5-5.0 CL (test code = 3107906759) 107 mmol/L 98-108 CO2 TOTAL (test code = 5077011887) 17 mmol/L 23-31 L AGAP (test code = 6169633205) 13 2-16 BUN (test code = 1193155507) 79 mg/dL 7-23 H GLUCOSE (test code = 7987389478) 51 mg/dL 70-110 L CREATININE (test code = 6921054656) 6.62 mg/dL 0.50-1.04 H TOTAL BILI (test code = 4392548576) 0.6 mg/dL 0.1-1.1 CALCIUM (test code = 9093633090) 8.4 mg/dL 8.6-10.6 L T PROTEIN (test code = 1312523880) 6.7 g/dL 6.3-8.2 ALBUMIN (test code = 3800120881) 3.7 g/dL 3.5-5.0 ALK PHOS (test code = 2158741064) 107 U/L 34-122 ALTv (test code = 1742-6) 19 U/L 5-35 AST(SGOT) (test code = 5930689273) 30 U/L 13-40 eGFR (test code = 5331284042) 6.3 mL/min/1.73m2 INDIRA (test code = INDIRA) Association of [...] or abnormalities in imaging tests). Lab Interpretation (test code = 94115-1) [facility]normal [facility] [id number] 18:48:48* Test Item Value Reference Range Interpretation Comme nts LACTIC ACID (test code = 0263560169) 1.17 mmol/L 0.50-2.20 Lab Interpretation (test cod e = 89231-0) Normal [facility] Whole [id number] 18:48:48* Test Item Value Reference Range Interpretation Comme nts LACTIC ACID (test code = 6072104275) 1.17 mmol/L 0.50-2.20 Lab Interpretation (test cod e = 62214-6) Normal [facility] Whole [id number] 18:48:48* Test Item Value Reference Range Interpretation Comme nts LACTIC ACID (test code = 2146107419) 1.17 mmol/L 0.50-2.20 Lab Interpretation (test cod e = 93759-7) Normal [facility], [id number] 12:23:29SPECIMEN NUMBER: [id number] CULTURE, URINE SPECIMEN NUMBER: [id number] SPECIMEN COMMENT: URINE SOURCE: URINE REPORT STATUS: FINAL FINAL REPORT: 04/24/2022 NO GROWTH AFTER 36 HOURS INCUBATION UNLESS OTHERWISE INDICATED, ALL TESTING PERFORMED [facility] [address] [place] [address] BUILDING PERFORMANCE SPECIALIST: CLAUDIO HALL M.D. CLIA NUMBER [id number] CAP ACCREDITATION NO. [id number], [id number] 00:00:00* Test Item Value Reference Range Interpretation Comme nts CULTURE, URINE (test code = 40209) SPECIMEN NUMBER: [id number] Quinn SchroederLIPID [id number] 00:00:00* Test Item Value Reference Range Interpretation Comme nts CHOLESTEROL (test code = 2210) 170 MG/DL TRIGLYCERIDES (test code = 2232) 104 MG/DL HDL CHOLESTEROL (test code = 2220) 58 MG/DL CALC LDL CHOL (test code = 2237) 92 MG/DL RISK RATIO LDL/HDL (test cod e = 2238) 1.59 RATIO Quinn SchroederHEMOGLOBIN [id number] 00:00:00* Test Item Value Reference Range Interpretation Comme [facility] HEMOGLOBIN A1c (test code = 83311) 6.0 % Quinn SchroederCOMPREHENSIVE METABOLIC [id number] 00:00:00* Test Item Value Reference Range Interpretation Comme nts GLUCOSE (test code = 2217) 138 MG/DL BUN (test code = 2208) 69 MG/DL CREATININE (test code = 2214) 4.89 MG/DL eGFR (2020 CKD-EPI) (test co de = 91957) 9 ML/MIN/1.73 CALC BUN/CREAT (test code = 2235) 14 RATIO SODIUM (test code = 2231) 141 MEQ/L POTASSIUM (test code = 2228) 4.5 MEQ/L CHLORIDE (test code = 2215) 104 MEQ/L CARBON DIOXIDE (test code = 2206) 24 MEQ/L CALCIUM (test code = 2209) 8.9 MG/DL PROTEIN, TOTAL (test code = 2229) 5.7 G/DL ALBUMIN (test code = 2201) 3.3 G/DL CALC GLOBULIN (test code = 2240) 2.4 G/DL CALC A/G RATIO (test code = 2234) 1.4 RATIO BILIRUBIN, TOTAL (test code = 2207) 0.3 MG/DL ALKALINE PHOSPHATASE (test c ode = 2204) 123 U/L AST (test code = 2218) 10 U/L ALT (test code = 2219) 9 U/L Quinn Alonso [facility] METABOLIC [id number] 05:32:51* Test Item Value Reference Range Interpretation Comme nts GLUCOSE (test code = 2217) 47 MG/DL 70-99 L BUN (test code = 2208) 52 MG/DL 8-23 H CREATININE (test code = 2214) 5.18 MG/DL 0.60-1.30 H eGFR (2020 CKD-EPI) (test code = 74484) 9 ML/MIN/1.73 >60 L SODIUM (test code = 2231) 144 MEQ/L 133-146 POTASSIUM (test code = 2228) 4.5 MEQ/L 3.5-5.4 CHLORIDE (test code = 2215) 110 MEQ/L 95-107 H CARBON DIOXIDE (test code = 2206) 21 MEQ/L 19-31 CALCIUM (test code = 2209) 9.0 MG/DL 8.5-10.5 UNLESS OTHERWISE INDICATED, ALL TESTING PERFORMED [facility] [address] [place] [address] BUILDING PERFORMANCE SPECIALIST: CLAUDIO HALL M.D. CLIA NUMBER [id number] [facility] [place]. [id number] BASIC METABOLIC [id number] 00:00:00* Test Item Value Reference Range Interpretation Comme nts GLUCOSE (test code = 2217) 47 MG/DL BUN (test code = 2208) 52 MG/DL CREATININE (test code = 2214) 5.18 MG/DL eGFR (2020 CKD-EPI) (test co de = 43430) 9 ML/MIN/1.73 SODIUM (test code = 2231) 144 MEQ/L POTASSIUM (test code = 2228) 4.5 MEQ/L CHLORIDE (test code = 2215) 110 MEQ/L CARBON DIOXIDE (test code = 2206) 21 MEQ/L CALCIUM (test code = 2209) 9.0 MG/DL Quinn SchroederHEMOGLOBIN [id number] 04:40:08* Test Item Value Reference Range Interpretation Comme [facility] HEMOGLOBIN A1c (test code = 25057) 7.2 % 4.2-5.[address] [employer] GUIDELINES FOR HGB A1C: PREDIABETES/INCREASED RISK . . . . . . . 5.7-6.4% DIAGNOSIS OF DIABETES . . . . . . . . . >=6.5% WITH CONFIRMATION OR APPROPRIATE SYMPTOMS NOTE: ASSAY MAY BE AFFECTED BY HEMOGLOBINOPATHIES (SICKLE CELL ANEMIA, S-C DISEASE, OTHERS) OR ARTIFICIALLY LOWERED BY DECREASED RED CELL SURVIVAL (HEMOLYTIC ANEMIAS, BLOOD LOSS, ETC.). CONSIDER ALTERNATE TESTING OR LABORATORY CONSULTATION. UNLESS OTHERWISE INDICATED, ALL TESTING PERFORMED [employer] [address] [place] [address] BUILDING PERFORMANCE SPECIALIST: CLAUDIO HALL M.D. CLIA NUMBER [id number] [facility] [place]. [id number] HEMOGLOBIN [id number] 00:00:00* Test Item Value Reference Range Interpretation Comme [facility] HEMOGLOBIN A1c (test code = 44699) 7.2 % Quinn SchroederH. PYLORI (BREATH)2021-11-28 13:35:23* Test Item Value Reference Range Interpretation Comme [facility] H. PYLORI (BREATH) (test code = 86214) NEGATIVE NEGATIVE UNLESS OTHER DOMINGO INDICATED, ALL TESTING PERFORMED [employer] [address] [place] [place] [address] BUILDING PERFORMANCE SPECIALIST: CLAUDIO HALL M.D. CLIA NUMBER [id number] [place]. [id number] TSH, THIRD [id number] 07:00:14* Test Item Value Reference Range Interpretation Comme [facility] TSH, THIRD GENERATION (test code = 2821) 2.490 UIU/ML 0.400-4.100 LIPID [id number] 05:47:30* Test Item Value Reference Range Interpretation Comme nts CHOLESTEROL (test code = 2210) 135 MG/DL <200 TRIGLYCERIDES (test code = 2232) 92 MG/DL <150 HDL CHOLESTEROL (test code = 2220) 53 MG/DL >39 CALC LDL CHOL (test code = 2237) 64 MG/DL <100 NOTE: CALCULATED LDL IS BASED ON PHILIPPE-MENCHACA METHOD WHICHINCLUDES ADJUSTABLE TRIGLYCERIDE:VLDL CHOLESTEROL RATIO.THIS FACTOR VARIES BY MEASURED TRIGLYCERIDE AND NON-HDLCHOLESTEROL CONCENTRATIONS WITH INCREASED CALCULATED LDL SEENIN HIGHER TRIGLYCERIDE OR LOWER NON-HDL SPECIMENS. FOR MOREINFORMATION, SEE CLIENT ANNOUNCEMENT AT [email or web address] RISK RATIO LDL/HDL (test code = 2237) 1.21 RATIO <3.22 COMPREHENSIVE METABOLIC [id number] 05:47:30* Test Item Value Reference Range Interpretation Comme nts GLUCOSE (test code = 2216) 76 MG/DL 70-99 BUN (test code = 2207) 46 MG/DL 8-23 H CREATININE (test code = 221) 3.69 MG/DL 0.60-1.30 H eGFR (2020 CKD-EPI) (test code = 20839) 13 ML/MIN/1.73 >60 L CALC BUN/CREAT (test code = 2235) 12 RATIO 6-28 SODIUM (test code = 223) 141 MEQ/L 133-146 POTASSIUM (test code = 2228) 5.0 MEQ/L 3.5-5.4 CHLORIDE (test code = 2215) 108 MEQ/L 95-107 H CARBON DIOXIDE (test code = 220) 18 MEQ/L 19-31 L CALCIUM (test code = 2209) 9.3 MG/DL 8.5-10.5 PROTEIN, TOTAL (test code = 222) 6.4 G/DL 6.1-8.3 ALBUMIN (test code = 220) 3.6 G/DL 3.5-5.2 CALC GLOBULIN (test code = 2240) 2.8 G/DL 1.9-3.7 CALC A/G RATIO (test code = 2234) 1.3 RATIO 1.0-2.6 BILIRUBIN, TOTAL (test code = 220) 0.3 MG/DL See_Comment [Automated me ssage] The system which generated this result transmitted reference range: <=1.2. The reference range was not used to interpret this result as normal/abnormal. ALKALINE PHOSPHATASE (test code = 2204) 153 U/L 40-140 H AST (test code = 2218) 19 U/L 9-40 ALT (test code = 2219) 13 U/L 5-40 CBC W/AUTO DIFF WITH [id number] 01:54:48* Test Item Value Reference Range Interpretation Comme nts WBC (test code = 1001) 9.2 K/UL 3.5-11.0 RBC (test code = 1002) 3.73 M/UL 3.80-5.40 L HEMOGLOBIN (test code = 1003) 11.4 G/DL 11.5-15.5 L HEMATOCRIT (test code = 1004) 34.4 % 34.0-45.0 MCV (test code = 1005) 92.2 fL 80.0-99.0 MCH (test code = 1006) 30.6 PG 25.0-33.0 MCHC (test code = 1007) 33.1 G/DL 31.0-36.0 RDW (test code = 1038) 13.9 % 11.5-15.0 NEUTROPHILS (test code = 1008) 71.6 % LYMPHOCYTES (test code = 1010) 17.8 % MONOCYTES (test code = 1011) 7.2 % EOSINOPHILS (test code = 1012) 2.8 % BASOPHILS (test code = 1013) 0.3 % IMMATURE GRANULOCYTES (test code = 1036) 0.3 % NUCLEATED RBCS (test code = 1065) 0.0 /100 WBC'S See_Comment [Automated messa ge] The system which generated this result transmitted reference range: 0.0. The reference range was not used to interpret this result as normal/abnormal. PLATELET COUNT (test code = 1015) 218 K/UL 130-400 ABSOLUTE NEUTROPHILS (test code = 1066) 6.59 K/UL 1.50-7.50 ABSOLUTE LYMPHOCYTES (test code = 1067) 1.64 K/UL 1.00-4.00 ABSOLUTE MONOCYTES (test code = 1068) 0.66 K/UL 0.20-1.00 ABSOLUTE EOSINOPHILS (test code = 1040) 0.26 K/UL 0.00-0.50 ABSOLUTE BASOPHILS (test code = 1069) 0.03 K/UL 0.00-0.20 ABS IMMATURE GRANULOCYTES (test code = 1020) 0.03 K/UL 0.00-0.10 ABS NUCLEATED RBCS (test code = 10264) 0.00 K/UL 0.00-0.11 COMPREHENSIVE METABOLIC [id number] 00:00:00* Test Item Value Reference Range Interpretation Comme nts GLUCOSE (test code = 2217) 76 MG/DL BUN (test code = 2208) 46 MG/DL CREATININE (test code = 2214) 3.69 MG/DL eGFR (2020 CKD-EPI) (test co de = 02831) 13 ML/MIN/1.73 CALC BUN/CREAT (test code = 2235) 12 RATIO SODIUM (test code = 2231) 141 MEQ/L POTASSIUM (test code = 2228) 5.0 MEQ/L CHLORIDE (test code = 2215) 108 MEQ/L CARBON DIOXIDE (test code = 2206) 18 MEQ/L CALCIUM (test code = 2209) 9.3 MG/DL PROTEIN, TOTAL (test code = 2229) 6.4 G/DL ALBUMIN (test code = 2201) 3.6 G/DL CALC GLOBULIN (test code = 2240) 2.8 G/DL CALC A/G RATIO (test code = 2234) 1.3 RATIO BILIRUBIN, TOTAL (test code = 2207) 0.3 MG/DL ALKALINE PHOSPHATASE (test code = 2204) 153 U/L AST (test code = 2218) 19 U/L ALT (test code = 2219) 13 U/L Quinn [id number] 00:00:00* Test Item Value Reference Range Interpretation Comme nts TSH, THIRD GENERATION (test code = 2821) 2.490 UIU/ML Quinn SchroederCBC W/AUTO [id number] 00:00:00* Test Item Value Reference Range Interpretation Comme nts WBC (test code = 1001) 9.2 K/UL RBC (test code = 1002) 3.73 M/UL HEMOGLOBIN (test code = 1003) 11.4 G/DL HEMATOCRIT (test code = 1004) 34.4 % MCV (test code = 1005) 92.2 fL MCH (test code = 1006) 30.6 PG MCHC (test code = 1007) 33.1 G/DL RDW (test code = 1038) 13.9 % NEUTROPHILS (test code = 1008) 71.6 % LYMPHOCYTES (test code = 1010) 17.8 % MONOCYTES (test code = 1011) 7.2 % EOSINOPHILS (test code = 1012) 2.8 % BASOPHILS (test code = 1013) 0.3 % IMMATURE GRANULOCYTES (test code = 1036) 0.3 % NUCLEATED RBCS (test code = 1065) 0.0 /100WBC'S PLATELET COUNT (test code = 1015) 218 K/UL ABSOLUTE NEUTROPHILS (test c ode = 1066) 6.59 K/UL ABSOLUTE LYMPHOCYTES (test c ode = 1067) 1.64 K/UL ABSOLUTE MONOCYTES (test cod e = 1068) 0.66 K/UL ABSOLUTE EOSINOPHILS (test c ode = 1040) 0.26 K/UL ABSOLUTE BASOPHILS (test cod e = 1069) 0.03 K/UL ABS IMMATURE GRANULOCYTES (t est code = 1020) 0.03 K/UL ABS NUCLEATED RBCS (test cod e = 64899) 0.00 K/UL Quinn SchroederH. PYLORI (BREATH)2021-11-28 00:00:00* Test Item Value Reference Range Interpretation Comme nts H. PYLORI (BREATH) (test cod e = 72700) NEGATIVE Quinn SchroederLIPID [id number] 00:00:00* Test Item Value Reference Range Interpretation Comme nts CHOLESTEROL (test code = 2210) 135 MG/DL TRIGLYCERIDES (test code = 2232) 92 MG/DL HDL CHOLESTEROL (test code = 2220) 53 MG/DL CALC LDL CHOL (test code = 2237) 64 MG/DL RISK RATIO LDL/HDL (test cod e = 2238) 1.21 RATIO Quinn SchroederTSH, THIRD [id number] 01:43:38* Test Item Value Reference Range Interpretation Comme nts TSH, THIRD GENERATION (test code = 2821) 2.160 UIU/ML 0.400-4.100 UNLESS OTHERWISE INDICATED, ALL TESTING PERFORMED [facility] [address] [place] [address] BUILDING PERFORMANCE SPECIALIST: CLAUDIO HALL M.D. CLIA NUMBER [id number] [facility] [place]. [id number] LIPID [id number] 01:12:10* Test Item Value Reference Range Interpretation Comme nts CHOLESTEROL (test code = 2210) 135 MG/DL <200 TRIGLYCERIDES (test code = 2232) 154 MG/DL <150 H HDL CHOLESTEROL (test code = 2220) 47 MG/DL >39 CALC LDL CHOL (test code = 2237) 64 MG/DL <100 NOTE: CALCULATED LDL IS BASED ON PHILIPPE-MENCHACA METHOD WHICHINCLUDES ADJUSTABLE TRIGLYCERIDE:VLDL CHOLESTEROL RATIO.THIS FACTOR VARIES BY MEASURED TRIGLYCERIDE AND NON-HDLCHOLESTEROL CONCENTRATIONS WITH INCREASED CALCULATED LDL SEENIN HIGHER TRIGLYCERIDE OR LOWER NON-HDL SPECIMENS. FOR MOREINFORMATION, SEE CLIENT ANNOUNCEMENT AT [email or web address]-C RISK RATIO LDL/HDL (test code = 2237) 1.36 RATIO <3.22 COMPREHENSIVE METABOLIC [id number] 01:12:10* Test Item Value Reference Range Interpretation Comme nts GLUCOSE (test code = 2216) 228 MG/DL 70-99 H BUN (test code = 2207) 58 MG/DL 8-23 H CREATININE (test code = 2213) 4.12 MG/DL 0.60-1.30 H eGFR (2020 CKD-EPI) (test code = 33812) 12 ML/MIN/1.73 >60 L CALC BUN/CREAT (test code = 2235) 14 RATIO 6-28 SODIUM (test code = 223) 140 MEQ/L 133-146 POTASSIUM (test code = 2228) 4.9 MEQ/L 3.5-5.4 CHLORIDE (test code = 2215) 106 MEQ/L 95-107 CARBON DIOXIDE (test code = 2206) 20 MEQ/L 19-31 CALCIUM (test code = 2209) 9.2 MG/DL 8.5-10.5 PROTEIN, TOTAL (test code = 222) 6.1 G/DL 6.1-8.3 ALBUMIN (test code = 2201) 3.5 G/DL 3.5-5.2 CALC GLOBULIN (test code = 2240) 2.6 G/DL 1.9-3.7 CALC A/G RATIO (test code = 2234) 1.3 RATIO 1.0-2.6 BILIRUBIN, TOTAL (test code = 220) <0.2 MG/DL See_Comment [Automated me ssage] The system which generated this result transmitted reference range: <=1.2. The reference range was not used to interpret this result as normal/abnormal. ALKALINE PHOSPHATASE (test code = 4) 148 U/L 40-140 H AST (test code = 2218) 14 U/L 9-40 ALT (test code = 2219) 13 U/L 5-40 LIPID [id number] 00:00:00* Test Item Value Reference Range Interpretation Comme nts CHOLESTEROL (test code = 2210) 135 MG/DL TRIGLYCERIDES (test code = 2232) 154 MG/DL HDL CHOLESTEROL (test code = 2220) 47 MG/DL CALC LDL CHOL (test code = 2237) 64 MG/DL RISK RATIO LDL/HDL (test cod e = 2238) 1.36 RATIO Quinn SchroederCOMPREHENSIVE METABOLIC [id number] 00:00:00* Test Item Value Reference Range Interpretation Comme nts GLUCOSE (test code = 2217) 228 MG/DL BUN (test code = 2208) 58 MG/DL CREATININE (test code = 2214) 4.12 MG/DL eGFR (2020 CKD-EPI) (test co de = 87821) 12 ML/MIN/1.73 CALC BUN/CREAT (test code = 2235) 14 RATIO SODIUM (test code = 2231) 140 MEQ/L POTASSIUM (test code = 2228) 4.9 MEQ/L CHLORIDE (test code = 2215) 106 MEQ/L CARBON DIOXIDE (test code = 2206) 20 MEQ/L CALCIUM (test code = 2209) 9.2 MG/DL PROTEIN, TOTAL (test code = 2229) 6.1 G/DL ALBUMIN (test code = 2201) 3.5 G/DL CALC GLOBULIN (test code = 2240) 2.6 G/DL CALC A/G RATIO (test code = 2234) 1.3 RATIO BILIRUBIN, TOTAL (test code = 2207) <0.2 MG/DL ALKALINE PHOSPHATASE (test code = 2204) 148 U/L AST (test code = 2218) 14 U/L ALT (test code = 2219) 13 U/L Quinn [id number] 00:00:00* Test Item Value Reference Range Interpretation Comme nts TSH, THIRD GENERATION (test code = 2821) 2.160 UIU/ML Quinn [id number] 18:46:20* Test Item Value Reference Range Interpretation Comme nts MAGNESIUM (test code = 3472188876) 1.8 mg/dL 1.7-2.4 Lab Interpretation (test cod e = 60219-6) [facility] [id number] 18:46:00* Test Item Value Reference Range Interpretation Comme nts ALBUMIN (test code = 9438262722) 4.0 g/dL 3.5-5.0 CALCIUM (test code = 5519162900) 9.3 mg/dL 8.6-10.6 CO2 TOTAL (test code = 4441117872) 32 mmol/L 23-31 H CREATININE (test code = 7461531082) 3.42 mg/dL 0.50-1.04 H GLUCOSE (test code = 9149685189) 193 mg/dL 70-110 H K (test code = 1120172207) 4.4 mmol/L 3.5-5.0 NA (test code = 0426436676) 132 mmol/L 135-145 L BUN (test code = 6366555940) 82 mg/dL 7-23 H PHOSPHORUS (test code = 1168481813) 4.5 mg/dL 2.5-5.0 eGFR (test code = 3929301011) mL/min/1.73m2 INDIRA (test code = INDIRA) Association of [...] or abnormalities in imaging tests). Lab Interpretation (test code = 18578-8) [id number]:45:40* Test Item Value Reference Range Interpretation Comme nts URIC ACID (test code = 0782731098) 13.7 mg/dL 2.9-6.0 H Lab Interpretation (test cod e = 58309-5) [facility] WITH [id number] 18:07:59* Test Item Value Reference Range Interpretation Comme nts WBC (test code = 6690-2) See_Comment [Automated [employer]] The system which generated this result transmitted reference range: 4.30 - 11.10 10*3/?L. The reference range was not used to interpret this result as normal/abnormal. RBC (test code = 789-8) See_Comment L [Automated [employer]] The system which generated this result transmitted reference range: 3.93 - 5.25 10*6/?L. The reference range was not used to interpret this result as normal/abnormal. HGB (test code = 718-7) 10.2 g/dL 11.6-15.0 L HCT (test code = 4544-3) 31.1 % 35.7-45.2 L MCV (test code = 787-2) 91.2 fL 80.6-95.5 MCH (test code = 785-6) 29.9 pg 25.9-32.8 MCHC (test code = 786-4) 32.8 g/dL 31.6-35.1 RDW-SD (test code = 54260-6) 46.8 fL 39.0-49.9 RDW-CV (test code = 788-0) 14.0 % 12.0-15.5 PLT (test code = 777-3) See_Comment [Automated [employer]] The system which generated this result transmitted reference range: 166 - 358 10*3/?L. The reference range was not used to interpret this result as normal/abnormal. MPV (test code = 28947-7) 11.7 fL 9.5-12.9 NRBC/100 WBC (test code = 7866594628) See_Comment [Automated me ssage] The system which generated this result transmitted reference range: 0.0 - 10.0 /100 WBCs. The reference range was not used to interpret this result as normal/abnormal. NRBC x10^3 (test code = 2681393446) <0.01 See_Comment [Automated messa ge] The system which generated this result transmitted reference range: 10*3/?L. The reference range was not used to interpret this result as normal/abnormal. GRAN MAT (NEUT) % (test code = 770-8) 72.3 % IMM GRAN % (test code = 2173198759) 0.50 % LYMPH % (test code = 736-9) 15.6 % MONO % (test code = 5905-5) 6.5 % EOS % (test code = 713-8) 4.7 % BASO % (test code = 706-2) 0.4 % GRAN MAT x10^3(ANC) (test code = 8505099115) 6.99 10*3/uL 1.88-7.09 IMM GRAN x10^3 (test code = 6027322721) 0.05 10*3/uL 0.00-0.06 LYMPH x10^3 (test code = 731-0) 1.51 10*3/uL 1.32-3.29 MONO x10^3 (test code = 742-7) 0.63 10*3/uL 0.33-0.92 EOS x10^3 (test code = 711-2) 0.45 10*3/uL 0.03-0.39 H BASO x10^3 (test code = 704-7) 0.04 10*3/uL 0.01-0.07 Lab Interpretation (test code = 48013-0) [facility] 13:34:05* Test Item Value Reference Range Interpretation Comme nts POCT GLU (test code = 3226835775) 137 mg/dL 70-110 H Lab Interpretation (test cod e = 04088-3) Abnormal [facility] METABOLIC PANEL (NA, K, CL, CO2, GLUCOSE, BUN, CREATININE, CA)2021-05-04 13:21:05* Test Item Value Reference Range Interpretation Comme nts NA (test code = 5361169924) 133 mmol/L 135-145 L K (test code = 1445531678) 3.8 mmol/L 3.5-5.0 CL (test code = 2433240612) 98 mmol/L 98-108 CO2 TOTAL (test code = 2843442228) 26 mmol/L 23-31 AGAP (test code = 9380815923) 2-16 BUN (test code = 6868145141) 103 mg/dL 7-23 H GLUCOSE (test code = 8644028337) 134 mg/dL 70-110 H CREATININE (test code = 3946814629) 3.88 mg/dL 0.50-1.04 H CALCIUM (test code = 5841852458) 8.3 mg/dL 8.6-10.6 L eGFR (test code = 1979080559) mL/min/1.73m2 INDIRA (test code = INDIRA) Association of [...] or abnormalities in imaging tests). Lab Interpretation (test code = 69798-2) Abnormal [facility] GLUCOSE (AUTOMATED)2021-05-04 06:30:37* Test Item Value Reference Range Interpretation Comme nts POCT GLU (test code = 5838404153) 244 mg/dL 70-110 H Lab Interpretation (test cod e = 23312-6) Abnormal [facility] GLUCOSE (AUTOMATED)2021-05-04 01:22:49* Test Item Value Reference Range Interpretation Comme nts POCT GLU (test code = 6245918849) 295 mg/dL 70-110 H Lab Interpretation (test cod e = 65913-8) Abnormal [facility] GLUCOSE (AUTOMATED)2021-05-03 22:18:16* Test Item Value Reference Range Interpretation Comme nts POCT GLU (test code = 2217747850) 309 mg/dL 70-110 H Lab Interpretation (test cod e = 33424-8) Abnormal [facility] GLUCOSE (AUTOMATED)2021-05-03 18:28:39* Test Item Value Reference Range Interpretation Comme nts POCT GLU (test code = 4851153787) 274 mg/dL 70-110 H Lab Interpretation (test cod e = 69907-2) Abnormal [facility] GLUCOSE (AUTOMATED)2021-05-03 14:15:50* Test Item Value Reference Range Interpretation Comme nts POCT GLU (test code = 6528491895) 147 mg/dL 70-110 H Lab Interpretation (test cod e = 04174-1) [facility]normal [facility] [id number] 13:54:02* Test Item Value Reference Range Interpretation Comme nts NT-proBNP (test code = 4833455851) 30561 pg/mL See_Comment H [Automated message] The system which generated this result transmitted reference range: <=125. The reference range was not used to interpret this result as normal/abnormal. INDIRA (test code = INDIRA) Biotin has been reported to cause a negative bias, interpret results relative to patient's use of biotin. Lab Interpretation (test code = 39917-0) Abnormal [facility] METABOLIC PANEL (NA, K, CL, CO2, GLUCOSE, BUN, CREATININE, CA)2021-05-03 13:12:28* Test Item Value Reference Range Interpretation Comme nts NA (test code = 5494430682) 132 mmol/L 135-145 L K (test code = 0708797020) 4.2 mmol/L 3.5-5.0 CL (test code = 6800863593) 101 mmol/L 98-108 CO2 TOTAL (test code = 6251881140) 23 mmol/L 23-31 AGAP (test code = 8928366840) 2-16 BUN (test code = 2267910586) 96 mg/dL 7-23 H GLUCOSE (test code = 9370542348) 147 mg/dL 70-110 H CREATININE (test code = 8136084909) 3.70 mg/dL 0.50-1.04 H CALCIUM (test code = 2748178398) 8.3 mg/dL 8.6-10.6 L eGFR (test code = 0481025044) mL/min/1.73m2 INDIRA (test code = INDIRA) Association of [...] or abnormalities in imaging tests). Lab Interpretation (test code = 24947-5) Abnormal [facility] WITH [id number] 12:05:23* Test Item Value Reference Range Interpretation Comme nts WBC (test code = 6690-2) See_Comment [Automated Like.coma ge] The system which generated this result transmitted reference range: 4.30 - 11.10 10*3/?L. The reference range was not used to interpret this result as normal/abnormal. RBC (test code = 789-8) See_Comment L [Automated Like.coma ge] The system which generated this result transmitted reference range: 3.93 - 5.25 10*6/?L. The reference range was not used to interpret this result as normal/abnormal. HGB (test code = 718-7) 9.2 g/dL 11.6-15.0 L HCT (test code = 4544-3) 28.7 % 35.7-45.2 L MCV (test code = 787-2) 91.1 fL 80.6-95.5 MCH (test code = 785-6) 29.2 pg 25.9-32.8 MCHC (test code = 786-4) 32.1 g/dL 31.6-35.1 RDW-SD (test code = 37765-7) 47.8 fL 39.0-49.9 RDW-CV (test code = 788-0) 14.5 % 12.0-15.5 PLT (test code = 777-3) See_Comment [Automated Like.coma ge] The system which generated this result transmitted reference range: 166 - 358 10*3/?L. The reference range was not used to interpret this result as normal/abnormal. MPV (test code = 99308-2) 11.9 fL 9.5-12.9 NRBC/100 WBC (test code = 6205019312) See_Comment [Automated Morphy ssage] The system which generated this result transmitted reference range: 0.0 - 10.0 /100 WBCs. The reference range was not used to interpret this result as normal/abnormal. NRBC x10^3 (test code = 3731590882) See_Comment [Automated messa ge] The system which generated this result transmitted reference range: 10*3/?L. The reference range was not used to interpret this result as normal/abnormal. GRAN MAT (NEUT) % (test code = 770-8) 78.9 % IMM GRAN % (test code = 7130375917) 0.50 % LYMPH % (test code = 736-9) 12.8 % MONO % (test code = 5905-5) 7.7 % EOS % (test code = 713-8) 0.0 % BASO % (test code = 706-2) 0.1 % GRAN MAT x10^3(ANC) (test code = 8194269734) 5.84 10*3/uL 1.88-7.09 IMM GRAN x10^3 (test code = 2106359947) 0.04 10*3/uL 0.00-0.06 LYMPH x10^3 (test code = 731-0) 0.95 10*3/uL 1.32-3.29 L MONO x10^3 (test code = 742-7) 0.57 10*3/uL 0.33-0.92 EOS x10^3 (test code = 711-2) <0.03 0.03-0.39 L BASO x10^3 (test code = 704-7) <0.03 0.01-0.07 Lab Interpretation (test code = 07607-9) Abnormal [facility] GLUCOSE (AUTOMATED)2021-05-03 11:00:31* Test Item Value Reference Range Interpretation Comme [facility] POCT GLU (test code = 6285885196) 147 mg/dL 70-110 H Notified Provide r Lab Interpretation (test code = 44569-1) Abnormal [facility] GLUCOSE (AUTOMATED)2021-05-03 06:32:35* Test Item Value Reference Range Interpretation Comme nts POCT GLU (test code = 3223665236) 255 mg/dL 70-110 H Notified Provide r Lab Interpretation (test code = 62582-5) Abnormal [facility] GLUCOSE (AUTOMATED)2021-05-03 02:38:08* Test Item Value Reference Range Interpretation Comme [facility] POCT GLU (test code = 0443746487) 300 mg/dL 70-110 H Lab Interpretation (test cod e = 83468-0) [facility]21-[facility]-02 22:57:17* Test Item Value Reference Range Interpretation Comme nts POCT GLU (test code = 1088349995) 380 mg/dL 70-110 H Lab Interpretation (test cod e = 50887-7) Abnormal [facility] GLUCOSE (AUTOMATED)2021-05-02 18:00:55* Test Item Value Reference Range Interpretation Comme nts POCT GLU (test code = 6352853612) 350 mg/dL 70-110 H Lab Interpretation (test cod e = 70617-0) [facility]normal [facility] P[facility] CALCIUM [id number] 17:49:16* Test Item Value Reference Range Interpretation Comme nts PTH-INTACT (test code = 0326978038) 278.6 pg/mL 12.0-88.0 H PTH-CA Interpretation (test code = 1808062569) Further clinical data needed for interpretation. CALCIUM (test code = 9907365237) 8.0 mg/dL 8.6-10.6 L Lab Interpretation (test code = 72324-2) [facility]normal [facility] [id number] 15:36:16* Test Item Value Reference Range Interpretation Comme nts NT-proBNP (test code = 0236106566) 44672 pg/mL See_Comment H [Automated message] The system which generated this result transmitted reference range: <=125. The reference range was not used to interpret this result as normal/abnormal. INDIRA (test code = INDIRA) Biotin has been reported to cause a negative bias, interpret results relative to patient's use of biotin. Lab Interpretation (test code = 44567-5) [facility]normal [facility] HoustonFerritin [id number] 15:28:38* Test Item Value Reference Range Interpretation Comme nts FERRITIN (test code = 6976261219) 579.0 ng/mL 11.0-264.0 H INDIRA (test code = INDIRA) Biotin has been reported to cause a negative bias, interpret results relative to patient's use of biotin. Lab Interpretation (test code = 07257-2) [facility]normal [facility] HoustonTHYROID STIMULATING [id number] 15:24:40 * Test Item Value Reference Range Interpretation Comme nts TSH (test code = 5504833584) See_Comment L [Automated messa ge] The system which generated this result transmitted reference range: 0.45 - 4.70 mIU/L. The reference range was not used to interpret this result as normal/abnormal. Lab Interpretation (test code = 19205-5) [facility]normal [facility] HoustonTROPONIN [id number] 15:06:20* Test Item Value Reference Range Interpretation Comments TROPONIN I (test code = 8622856881) 0.070 ng/mL See_Comment H [Automated message] The system which generated this result transmitted reference range: <=0.034. The reference range was not used to interpret this result as normal/abnormal. INDIRA (test code = INDIRA) Reference (Normal) Range (defined by the 99th percentile reference [...] patient's use of biotin. Lab Interpretation (test code = 00389-0) [facility]normal [facility] HoustonMAGNESIUM2022-01-08 14:54:15* Test Item Value Reference Range Interpretation Comme nts MAGNESIUM (test code = 8379853436) 2.3 mg/dL 1.7-2.4 Lab Interpretation (test cod e = 95275-6) Normal [facility] HoustonCOMP. METABOLIC PANEL (68806)2021-05-02 14:53:55* Test Item Value Reference Range Interpretation Comme nts NA (test code = 5013551749) 131 mmol/L 135-145 L K (test code = 9851271924) 5.3 mmol/L 3.5-5.0 H CL (test code = 2320072234) 105 mmol/L 98-108 CO2 TOTAL (test code = 8583674617) 17 mmol/L 23-31 L AGAP (test code = 5544152014) 2-16 BUN (test code = 6812794313) 82 mg/dL 7-23 H GLUCOSE (test code = 7571354403) 235 mg/dL 70-110 H CREATININE (test code = 2186330621) 3.48 mg/dL 0.50-1.04 H TOTAL BILI (test code = 2081299902) 0.3 mg/dL 0.1-1.1 CALCIUM (test code = 7266953259) 8.0 mg/dL 8.6-10.6 L T PROTEIN (test code = 5212455183) 5.9 g/dL 6.3-8.2 L ALBUMIN (test code = 3925868875) 2.9 g/dL 3.5-5.0 L ALK PHOS (test code = 9531632941) 116 U/L 34-122 ALTv (test code = 1742-6) 122 U/L 5-35 H AST(SGOT) (test code = 3929531857) 45 U/L 13-40 H eGFR (test code = 7647641566) mL/min/1.73m2 INDIRA (test code = INDIRA) Association of [...] or abnormalities in imaging tests). Lab Interpretation (test code = 14176-3) [facility]normal [facility] HoustonPHOSPHORUS2022-01-08 14:53:55* Test Item Value Reference Range Interpretation Comme nts PHOSPHORUS (test code = 7515651494) 5.2 mg/dL 2.5-5.0 H Lab Interpretation (test cod e = 30940-4) Abnormal [facility] HoustonIron [id number] 14:53:35* Test Item Value Reference Range Interpretation Comme nts IRON (test code = 0619619509) 42 ug/dL 50-160 L Lab Interpretation (test cod e = 23402-0) Abnormal [facility] HoustonTOTAL IRON BINDING [id number] 14:32:14 * Test Item Value Reference Range Interpretation Comme nts TIBC (test code = 9048859099) 203 ug/dL 250-410 L Lab Interpretation (test cod e = 34113-8) [facility]normal [facility] HoustonPOCT [facility]2021-05-02 13:47:04* Test Item Value Reference Range Interpretation Comme nts POCT GLU (test code = 6526776391) 257 mg/dL 70-110 H Lab Interpretation (test cod e = 76392-3) Abnormal [facility] HoustonCB WITH [id number] 13:08:09* Test Item Value Reference Range Interpretation Comme nts WBC (test code = 6690-2) See_Comment [Automated messa ge] The system which generated this result transmitted reference range: 4.30 - 11.10 10*3/?L. The reference range was not used to interpret this result as normal/abnormal. RBC (test code = 789-8) See_Comment L [Automated messa ge] The system which generated this result transmitted reference range: 3.93 - 5.25 10*6/?L. The reference range was not used to interpret this result as normal/abnormal. HGB (test code = 718-7) 9.4 g/dL 11.6-15.0 L HCT (test code = 4544-3) 27.9 % 35.7-45.2 L MCV (test code = 787-2) 91.2 fL 80.6-95.5 MCH (test code = 785-6) 30.7 pg 25.9-32.8 MCHC (test code = 786-4) 33.7 g/dL 31.6-35.1 RDW-SD (test code = 24047-4) 48.2 fL 39.0-49.9 RDW-CV (test code = 788-0) 14.6 % 12.0-15.5 PLT (test code = 777-3) See_Comment [Automated messa ge] The system which generated this result transmitted reference range: 166 - 358 10*3/?L. The reference range was not used to interpret this result as normal/abnormal. MPV (test code = 97198-3) 12.3 fL 9.5-12.9 NRBC/100 WBC (test code = 9129712603) See_Comment [Automated Morphy ssage] The system which generated this result transmitted reference range: 0.0 - 10.0 /100 WBCs. The reference range was not used to interpret this result as normal/abnormal. NRBC x10^3 (test code = 2267883533) See_Comment [Automated messa ge] The system which generated this result transmitted reference range: 10*3/?L. The reference range was not used to interpret this result as normal/abnormal. GRAN MAT (NEUT) % (test code = 770-8) 78.4 % IMM GRAN % (test code = 1945759828) 0.80 % LYMPH % (test code = 736-9) 13.1 % MONO % (test code = 5905-5) 7.5 % EOS % (test code = 713-8) 0.0 % BASO % (test code = 706-2) 0.2 % GRAN MAT x10^3(ANC) (test code = 3689628869) 5.01 10*3/uL 1.88-7.09 IMM GRAN x10^3 (test code = 2300739969) 0.05 10*3/uL 0.00-0.06 LYMPH x10^3 (test code = 731-0) 0.84 10*3/uL 1.32-3.29 L MONO x10^3 (test code = 742-7) 0.48 10*3/uL 0.33-0.92 EOS x10^3 (test code = 711-2) <0.03 0.03-0.39 L BASO x10^3 (test code = 704-7) <0.03 0.01-0.07 ACANTHOCYTES (test code = 7789-1) 1+ See_Comment [Automated messa ge] The system which generated this result transmitted reference range: 1+. The reference range was not used to interpret this result as normal/abnormal. POLYCHROMASIA (test code = 20566-7) 2+ See_Comment [Automated messa ge] The system which generated this result transmitted reference range: 2+. The reference range was not used to interpret this result as normal/abnormal. SCHISTOCYTES (test code = 800-3) 1+ A Lab Interpretation (test code = 25346-4) Abnormal [facility] GLUCOSE (AUTOMATED)2021-05-02 08:11:51* Test Item Value Reference Range Interpretation Comme nts POCT GLU (test code = 4932202442) 251 mg/dL 70-110 H Notified Provide r Lab Interpretation (test code = 05306-9) Abnormal [facility] GLUCOSE (AUTOMATED)2021-05-02 02:45:02* Test Item Value Reference Range Interpretation Comme nts POCT GLU (test code = 6001514901) 341 mg/dL 70-110 H Lab Interpretation (test cod e = 20781-4) Abnormal [facility] HoustonVITAMIN D, [id number] 00:20:17* Test Item Value Reference Range Interpretation Comme [facility] VIT D 25OH (test code = 34998-6) <13 25-80 L INDIRA (test code = INDIRA) Deficiency: <20 ng/mLInsufficiency: 20-24 ng/mLOptimal: 25-80 ng/mL Lab Interpretation (test code = 71975-6) Abnormal [facility] GLUCOSE (AUTOMATED)2021-05-01 22:21:36* Test Item Value Reference Range Interpretation Comme nts POCT GLU (test code = 3441992279) 335 mg/dL 70-110 H Lab Interpretation (test cod e = 06288-0) [facility]normal [facility]PHOSPHORUS2022-01-07 17:15:46* Test Item Value Reference Range Interpretation Comme nts PHOSPHORUS (test code = 7257110560) 5.6 mg/dL 2.5-5.0 H Lab Interpretation (test cod e = 07999-8) Abnormal [facility] HoustonCREATINE [id number] 17:15:26* Test Item Value Reference Range Interpretation Comme nts CK (test code = 9435333202) 80 U/L 33-194 Lab Interpretation (test cod e = 38213-7) Normal [facility]2021-05-01 17:10:01* Test Item Value Reference Range Interpretation Comme [facility] POCT GLU (test code = 3845239274) 229 mg/dL 70-110 H Lab Interpretation (test cod e = 79736-3) Abnormal [facility] HoustonN-TERMINAL [id number] 16:04:24* Test Item Value Reference Range Interpretation Comme nts NT-proBNP (test code = 7274014877) 05508 pg/mL See_Comment H [Automated message] The system which generated this result transmitted reference range: <=125. The reference range was not used to interpret this result as normal/abnormal. INDIRA (test code = INDIRA) Biotin has been reported to cause a negative bias, interpret results relative to patient's use of biotin. Lab Interpretation (test code = 80941-8) Abnormal [facility] HoustonTROPONIN [id number] 15:24:34* Test Item Value Reference Range Interpretation Comments TROPONIN I (test code = 3674013731) 0.082 ng/mL See_Comment H [Automated message] The system which generated this result transmitted reference range: <=0.034. The reference range was not used to interpret this result as normal/abnormal. INDIRA (test code = INDIRA) Reference (Normal) Range (defined by the 99th percentile reference [...] patient's use of biotin. Lab Interpretation (test code = 79150-0) [facility]normal [facility]2021-05-01 13:42:17* Test Item Value Reference Range Interpretation Comme nts POCT GLU (test code = 0890443965) 178 mg/dL 70-110 H Lab Interpretation (test cod e = 95290-6) Abnormal [facility] HoustonMagnesium [id number] 12:36:00* Test Item Value Reference Range Interpretation Comme nts MAGNESIUM (test code = 4094274284) 2.5 mg/dL 1.7-2.4 H Lab Interpretation (test cod e = 64489-1) [facility]normal [facility] HoustonHEPATIC FUNCTION PANEL (45693) (ALB,T.PRO,BILI T,BU/BC,ALT,AST,ALK PHOS)2021-05-01 12:36:00* Test Item Value Reference Range Interpretation Comme nts TOTAL BILI (test code = 3449469360) 0.4 mg/dL 0.1-1.1 BILI UNCON (test code = 8322864432) 0.0 mg/dL 0.1-1.1 L BILI CONJ (test code = 3032732299) 0.0 mg/dL 0.0-0.3 T PROTEIN (test code = 9962281867) 6.0 g/dL 6.3-8.2 L ALBUMIN (test code = 3970351302) 2.9 g/dL 3.5-5.0 L ALK PHOS (test code = 7312665482) 112 U/L 34-122 ALTv (test code = 1742-6) 146 U/L 5-35 H AST(SGOT) (test code = 2778769541) 77 U/L 13-40 H Lab Interpretation (test cod e = 89641-6) [facility]normal [facility] HoustonBasic Metabolic Panel (NA, K, CL, CO2, GLUCOSE, BUN, CREATININE, CA)2021-05-01 12:35:45* Test Item Value Reference Range Interpretation Comme nts NA (test code = 7468426187) 135 mmol/L 135-145 K (test code = 2324447826) 5.5 mmol/L 3.5-5.0 H CL (test code = 7455918877) 110 mmol/L 98-108 H CO2 TOTAL (test code = 9116325583) 17 mmol/L 23-31 L AGAP (test code = 6162802405) 2-16 BUN (test code = 8137526758) 66 mg/dL 7-23 H GLUCOSE (test code = 1209542178) 169 mg/dL 70-110 H CREATININE (test code = 7374978234) 3.15 mg/dL 0.50-1.04 H CALCIUM (test code = 6107914979) 8.0 mg/dL 8.6-10.6 L eGFR (test code = 9912724386) mL/min/1.73m2 INDIRA (test code = INDIRA) Association of [...] or abnormalities in imaging tests). Lab Interpretation (test code = 90526-6) [facility]normal [facility] HoustonLIPASE2022-[facility]07 12:35:45* Test Item Value Reference Range Interpretation Comme nts LIPASE (test code = 9151238279) 437 U/L 0-220 H Lab Interpretation (test cod e = 57898-1) Abnormal [facility] with Ucgxkxqfbwjj8239-24-10 12:10:14* Test Item Value Reference Range Interpretation Comme nts WBC (test code = 6690-2) See_Comment [Automated messa ge] The system which generated this result transmitted reference range: 4.30 - 11.10 10*3/?L. The reference range was not used to interpret this result as normal/abnormal. RBC (test code = 789-8) See_Comment L [Automated messa ge] The system which generated this result transmitted reference range: 3.93 - 5.25 10*6/?L. The reference range was not used to interpret this result as normal/abnormal. HGB (test code = 718-7) 8.9 g/dL 11.6-15.0 L HCT (test code = 4544-3) 27.5 % 35.7-45.2 L MCV (test code = 787-2) 93.2 fL 80.6-95.5 MCH (test code = 785-6) 30.2 pg 25.9-32.8 MCHC (test code = 786-4) 32.4 g/dL 31.6-35.1 RDW-SD (test code = 27975-1) 49.1 fL 39.0-49.9 RDW-CV (test code = 788-0) 14.5 % 12.0-15.5 PLT (test code = 777-3) See_Comment L [Automated messa ge] The system which generated this result transmitted reference range: 166 - 358 10*3/?L. The reference range was not used to interpret this result as normal/abnormal. MPV (test code = 21097-3) 12.3 fL 9.5-12.9 NRBC/100 WBC (test code = 9543109782) See_Comment [Automated me ssage] The system which generated this result transmitted reference range: 0.0 - 10.0 /100 WBCs. The reference range was not used to interpret this result as normal/abnormal. NRBC x10^3 (test code = 2921483538) See_Comment [Automated messa ge] The system which generated this result transmitted reference range: 10*3/?L. The reference range was not used to interpret this result as normal/abnormal. GRAN MAT (NEUT) % (test code = 770-8) 81.9 % IMM GRAN % (test code = 5370962506) 0.90 % LYMPH % (test code = 736-9) 11.3 % MONO % (test code = 5905-5) 5.8 % EOS % (test code = 713-8) 0.0 % BASO % (test code = 706-2) 0.1 % GRAN MAT x10^3(ANC) (test code = 7787688899) 5.49 10*3/uL 1.88-7.09 IMM GRAN x10^3 (test code = 5491864190) 0.06 10*3/uL 0.00-0.06 LYMPH x10^3 (test code = 731-0) 0.76 10*3/uL 1.32-3.29 L MONO x10^3 (test code = 742-7) 0.39 10*3/uL 0.33-0.92 EOS x10^3 (test code = 711-2) <0.03 0.03-0.39 L BASO x10^3 (test code = 704-7) <0.03 0.01-0.07 Lab Interpretation (test code = 40973-9) [facility]2021-[facility]-01 03:05:41* Test Item Value Reference Range Interpretation Comme [facility] POCT GLU (test code = 5938419075) 217 mg/dL 70-110 H Lab Interpretation (test cod e = 34415-3) Abnormal [facility] HoustonGLYCOSYLATED HEMOGLOBIN (A1C)2021-04-30 23:47:17* Test Item Value Reference Range Interpretation Comme [facility] HGB A1C (test code = 4548-4) 6.2 % 4.0-5.7 H INDIRA (test code = INDIRA) Reference RangesNormal: <5.7%Prediabetes: 5.7 - 6.4%Diabetes: > 6.5% Lab Interpretation (test code = 59583-4) [facility]normal [facility]PO[facility]2021-04-30 23:10:21* Test Item Value Reference Range Interpretation Comme nts POCT GLU (test code = 0724796753) 258 mg/dL 70-110 H Lab Interpretation (test cod e = 23679-0) Abnormal [facility] HoustonTROPONIN [id number] 22:27:01* Test Item Value Reference Range Interpretation Comments TROPONIN I (test code = 2271040860) 0.085 ng/mL See_Comment H [Automated message] The system which generated this result transmitted reference range: <=0.034. The reference range was not used to interpret this result as normal/abnormal. INDIRA (test code = INDIRA) Reference (Normal) Range (defined by the 99th percentile reference [...] patient's use of biotin. Lab Interpretation (test code = 73521-5) [facility]normal [facility] HoustonLIPID PANEL (97612)(TOTAL CHOLESTEROL, TRIGLYCERIDES, HDL)2021-04-30 21:27:24* Test Item Value Reference Range Interpretation Comme nts CHOL (test code = 8076540102) 102 mg/dL 120-200 L HDL (test code = 3501277698) 21 mg/dL >50 L HDLC RATIO (test code = 3464682325) See_Comment H [Automated Like.coma SongFlame] The system which generated this result transmitted reference range: <=4.5. The reference range was not used to interpret this result as normal/abnormal. TRIG (test code = 9468779944) 136 mg/dL 30-170 LDL CHOL (test code = 50950-8) 54 mg/dL See_Comment [Automated Like.coma SongFlame] The system which generated this result transmitted reference range: <=160. The reference range was not used to interpret this result as normal/abnormal. VLDL (test code = 5912997261) 27 mg/dL 5-60 Lab Interpretation (test code = 90795-3) [facility]normal [facility] HoustonCOMP. METABOLIC PANEL (72649)2021-04-30 13:58:33* Test Item Value Reference Range Interpretation Comme nts NA (test code = 4638857092) 133 mmol/L 135-145 L K (test code = 2902199744) 5.1 mmol/L 3.5-5.0 H CL (test code = 4503118024) 108 mmol/L 98-108 CO2 TOTAL (test code = 6693581157) 18 mmol/L 23-31 L AGAP (test code = 5286350264) 2-16 BUN (test code = 0153266876) 63 mg/dL 7-23 H GLUCOSE (test code = [id number]) 156 mg/dL 70-110 H CREATININE (test code = 6630542215) 3.53 mg/dL 0.50-1.04 H TOTAL BILI (test code = 9216881713) 0.4 mg/dL 0.1-1.1 CALCIUM (test code = 1474998736) 7.7 mg/dL 8.6-10.6 L T PROTEIN (test code = 8124084632) 6.5 g/dL 6.3-8.2 ALBUMIN (test code = 4951677452) 3.2 g/dL 3.5-5.0 L ALK PHOS (test code = 2303143274) 137 U/L 34-122 H ALTv (test code = 1742-6) 187 U/L 5-35 H AST(SGOT) (test code = 7096273487) 143 U/L 13-40 H eGFR (test code = 8571016472) mL/min/1.73m2 INDIRA (test code = INDIRA) Association of [...] or abnormalities in imaging tests). Lab Interpretation (test code = 72284-2) [facility] Only)2021-04-30 13:54:34* Test Item Value Reference Range Interpretation Comme nts ABO & RH (test code = 20) O Positive Performed at [facility] B Laboratory Services - [facility] Blood [address] [place], [place] [id number] Free: [phone] No. [id number] [facility] [id number] 13:04:30* Test Item Value Reference Range Interpretation Comments TROPONIN I (test code = 7204128584) 0.116 ng/mL See_Comment H [Automated message] The system which generated this result transmitted reference range: <=0.034. The reference range was not used to interpret this result as normal/abnormal. INDIRA (test code = INDIRA) Reference (Normal) Range (defined by the 99th percentile reference [...] patient's use of biotin. Lab Interpretation (test code = 21738-4) Abnormal [facility]-TERMINAL SEE-[id number] 13:01:29* Test Item Value Reference Range Interpretation Comme nts NT-proBNP (test code = 8485659628) 97005 pg/mL See_Comment H [Automated message] The system which generated this result transmitted reference range: <=125. The reference range was not used to interpret this result as normal/abnormal. INDIRA (test code = INDIRA) Biotin has been reported to cause a negative bias, interpret results relative to patient's use of biotin. Lab Interpretation (test code = 89326-6) Abnormal [facility] HoustonType and Screen - ONCE [id number] 13:00:01 * Test Item Value Reference Range Interpretation Comme nts ABO & RH (test code = 20) O Positive Performed at [facility] Laboratory Services - [facility] Blood [address] [place] [address] Free: [phone] No. [id number] IAT (test code = 1185) Negative Performed at [facility] Laboratory [facility] Blood [address] [place] [address] Free: [phone] No. [id number] [facility] HoustonCBC WITH [id number] 12:54:12* Test Item Value Reference Range Interpretation Comme nts WBC (test code = 6690-2) See_Comment [Automated messa ge] The system which generated this result transmitted reference range: 4.30 - 11.10 10*3/?L. The reference range was not used to interpret this result as normal/abnormal. RBC (test code = 789-8) See_Comment L [Automated messa ge] The system which generated this result transmitted reference range: 3.93 - 5.25 10*6/?L. The reference range was not used to interpret this result as normal/abnormal. HGB (test code = 718-7) 8.9 g/dL 11.6-15.0 L HCT (test code = 4544-3) 27.1 % 35.7-45.2 L MCV (test code = 787-2) 91.9 fL 80.6-95.5 MCH (test code = 785-6) 30.2 pg 25.9-32.8 MCHC (test code = 786-4) 32.8 g/dL 31.6-35.1 RDW-SD (test code = 33155-6) 48.7 fL 39.0-49.9 RDW-CV (test code = 788-0) 14.6 % 12.0-15.5 PLT (test code = 777-3) See_Comment [Automated messa ge] The system which generated this result transmitted reference range: 166 - 358 10*3/?L. The reference range was not used to interpret this result as normal/abnormal. MPV (test code = 70217-3) 12.4 fL 9.5-12.9 NRBC/100 WBC (test code = 0784205055) See_Comment [Automated Morphy ssage] The system which generated this result transmitted reference range: 0.0 - 10.0 /100 WBCs. The reference range was not used to interpret this result as normal/abnormal. NRBC x10^3 (test code = 8002492891) See_Comment [Automated messa ge] The system which generated this result transmitted reference range: 10*3/?L. The reference range was not used to interpret this result as normal/abnormal. GRAN MAT (NEUT) % (test code = 770-8) 85.2 % IMM GRAN % (test code = 7758796545) 1.00 % LYMPH % (test code = 736-9) 8.5 % MONO % (test code = 5905-5) 4.6 % EOS % (test code = 713-8) 0.5 % BASO % (test code = 706-2) 0.2 % GRAN MAT x10^3(ANC) (test code = 5576467491) 7.02 10*3/uL 1.88-7.09 IMM GRAN x10^3 (test code = 9480042021) 0.08 10*3/uL 0.00-0.06 H LYMPH x10^3 (test code = 731-0) 0.70 10*3/uL 1.32-3.29 L MONO x10^3 (test code = 742-7) 0.38 10*3/uL 0.33-0.92 EOS x10^3 (test code = 711-2) 0.04 10*3/uL 0.03-0.39 BASO x10^3 (test code = 704-7) <0.03 0.01-0.07 Lab Interpretation (test code = 43863-2) [facility]normal [facility] HoustonLIPASE2022-[facility]-06 12:52:27* Test Item Value Reference Range Interpretation Comme nts LIPASE (test code = 1450264837) 566 U/L 0-220 H Lab Interpretation (test cod e = 01106-2) Abnormal [facility] HoustonACTIVATED PARTIAL THRMPLAS [id number] 12:41:03* Test Item Value Reference Range Interpretation Comme nts APTT Patient (test code = 3173-2) See_Comment [Automated message] The system which generated this result transmitted reference range: 23 - 38 Seconds. The reference range was not used to interpret this result as normal/abnormal. INDIRA (test code = INDIRA) The RUST patient population mean normal value for aPTT is 30 seconds. Lab Interpretation (test code = 18935-7) Normal [facility] HoustonPROTHROMBIN TIME / [id number] 12:35:26* Test Item Value Reference Range Interpretation Comme nts PROTIME PATIENT (test code = 5964-2) See_Comment [Automated messa ge] The system which generated this result transmitted reference range: 12.0 - 14.7 Seconds. The reference range was not used to interpret this result as normal/abnormal. INR (test code = 6301-6) Normal INR <1.1; Warfarin Therapeutic range 2.0 to 3.0 or 2.5 to 3.5, depending upon the indications. 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 Kidney Is the patient listed for transplant at this time at another center: no Has the patient been evaluated or are they being evaluated at another center? no Has the patient had a previous transplant (s): no What caused the patients' disease? Diabetes Is the patient on dialysis? yes If yes, date of first dialysis: 05/07/22 , Name of Dialysis Center: [facility] ; Dialysis Center phone number: [phone] ; What type of dialysis: hemodialysis , Days of dialysis: : Does the patient have cancer or a history of : If yes Date of diagnosis: Does the patient have HIV/AIDS: Do you have a history of heart problems or heart disease: Do you have a architectural engineer? If yes Processing Specialist name and contact information: Have you had heart testing: If yes, what did you have done and where was it done and date done? Have you ever had any amputations? Have you ever had a stroke? Do you have a history of diabetes? If yes: Age of diabetes onset: What type of diabetes? Do you take Insulin: Does the patient use assistive devices: Does the patient have any special needs? Oxygen? Do you have a dentist? Do you have a law office receptionist? Well woman's exam with PAP within 3 years: Mammogram: within 1 year: Have you had a colonoscopy within 10 years: Have you had any x-rays, CTs or other images completed in the past 3 years? Do you have a living donor: Ericka Andres [facility]"
--- NOTE | 2023-11-23 15:21 | RAD REPORT ---
EXAM DESCRIPTION: RAD - Chest Single View - 11/23/2023 3:15 pm CLINICAL HISTORY: CHEST PAIN Chest pain. COMPARISON: <Comparisons> FINDINGS: Portable technique limits examination quality. Mild interstitial pulmonary edema seen. Mild linear atelectasis in the left mid lung. The heart is mo derately enlarged size. No displaced fractures. IMPRESSION: Mild CHF.
[2023-11-23 15:43] LABS: Absolute Eosinophils 0.2 K/uL (0-0.5); Absolute Lymphocytes (CBC) 1.6 K/uL (0.7-4.9); Absolute Monocytes 0.7 K/uL (0.1-1.3); Absolute Neutrophil 4.3 K/uL (1.8-8.0); Basophils % 0.4 % (0-1.3); Eosinophils % 2.5 % (0-4.4); Hematocrit 33.8 % (36.0-45.0); Hemoglobin 11.2 g/dL (12.0-15.0); Lymphocytes % 23.3 % (15.3-44.8); MCH 33.5 pg (27.0-35.0); MCHC 33.3 g/dL (32.0-36.0); MCV 100.7 fL (80-100); MPV 8.8 fL (7.6-11.3); Monocytes % 9.9 % (3.3-12.3); Neutrophils % 63.9 % (41.7-73.7); Platelets 143 thou/uL (152-406); RBC Red Blood Cell Count 3.35 M/uL (3.86-4.86); Red Cell Distribution Width 14.1 % (12.1-15.2)
[2023-11-23 15:58] LABS: Albumin 3.6 g/dL (3.4-5.0); Albumin/Globulin Ratio 0.9 (1.1-1.8); Alkaline Phosphatase 117 U/L (45-117); Anion Gap 10.1 mEq/L (5.0-15.0); BUN Blood Urea Nitrogen 25 mg/dL (7-18); Bicarbonate 25 mEq/L (21-32); Bilirubin Total 0.5 mg/dL (0.2-1.0); Globulin 3.8 g/dL (2.3-3.5); Glomerular Filtration Rate 13 ml/min (=/>90); Glucose Level 135 mg/dL (74-106); Magnesium 2.5 mg/dL (1.6-2.4); NT PRO-BNP 12816 pg/mL (<125); Potassium 4.1 mEq/L (3.5-5.1); Protein, Total 7.4 g/dL (6.4-8.2); Sodium Level 133 mEq/L (136-145); Troponin High Sensitivity 26.4 pg/mL (<58.9)
[2023-11-23 16:14] LABS: ALT/SGPT < 14 U/L (13-56); AST/SGOT < 10 U/L (15-37)
--- NOTE | 2023-11-23 17:03 | ER ---
Nurse's Notes [facility] Name: Magalis Haywood Age: 63 yrs Sex: Female : 1960 Arrival Date: 11/23/2023 Time: 14:24 Bed 13 Private MD: Diagnosis: Nonspecific chest pain;Fluid overload;ESRD on dialysis Presentation: 11/22 14:54 Chief complaint: EMS states: "toned out for chest pain that occurred while at dialysis. mb9 Pt got 2.1 L pulled off. 324 mg of Aspirin given SCAFFOLD ERECTOR.". Coronavirus screen: At this time, the client does not indicate any symptoms associated with coronavirus-19. Ebola Screen: No symptoms or risks identified at this time. Initial Sepsis Screen: Does the patient meet any 2 criteria? No. Patient's initial sepsis screen is negative. Does the patient have a suspected source of infection? No. Patient's initial sepsis screen is negative. Risk Assessment: Do you want to hurt yourself or someone else? Patient reports no desire to harm self or others. Onset of symptoms was November 23, 2023. 14:54 Method Of Arrival: EMS: [facility] mb9 14:54 Acuity: MEI 2 mb9 Triage Assessment: 14:57 General: Appears in no apparent distress. Behavior is calm, cooperative. Pain: mb9 Complains of pain in chest Pain does not radiate. Pain currently is 3 out of 10 on a pain scale. Quality of pain is described as throbbing, Pain began suddenly, Is intermittent. EENT: No deficits noted. Neuro: Level of Consciousness is alert, obeys commands, lethargic, Oriented to person, place, time, situation, Appropriate for age. Cardiovascular: Heart tones S1 S2 present Patient's skin is warm and dry. Respiratory: Airway is patent Respiratory effort is even, unlabored, Respiratory pattern is regular, symmetrical. GI: No signs and/or symptoms were reported involving the gastrointestinal system. : No signs and/or symptoms were reported regarding the genitourinary system. Derm: Skin is pink, warm \\T\\ dry. Musculoskeletal: Range of motion: intact in all extremities. Historical: - Allergies: 15:09 No Known Allergies; mb9 - Home Meds: 14:51 senna 8.6 mg Oral capsule 1 cap 2 times per day [Active]; Lasix 80 mg Oral tablet 1 tab mb9 daily [Active]; losartan 25 mg Oral tablet 2 tabs daily [Active]; isosorbide mononitrate 30 mg Oral Tablet [Active]; aspirin 81 mg Oral tablet [Active]; carvedilol 25 mg Oral tablet 1 tab 2 times per day [Active]; acetaminophen-codeine 300-30 mg Oral tablet [Active]; - PMHx: 14:51 diabetes mellitus; End stage renal disease; Hypertensive disorder; mb9 - PSHx: 14:51 None; mb9 - Immunization history:: Adult Immunizations up to date. - Infectious Disease History:: Denies. - Social history:: Smoking status: Patient denies any tobacco usage or history of. Screenin:58 [facility] ED Fall Risk Assessment (Adult) History of falling in the last 3 months, mb9 including since admission No falls in past 3 months (0 pts) Confusion or Disorientation No (0 pts) Intoxicated or Sedated No (0 pts) Impaired Gait No (0 pts) Mobility Assist Device Used No (0 pt) Altered Elimination No (0 pt) Score/Fall Risk Level 0 - 2 = Low Risk Oriented to surroundings, Maintained a safe environment, Educated pt \\T\\ family on fall prevention, incl call for assistance when getting out of bed. Abuse screen: Denies threats or abuse. Nutritional screening: No deficits noted. Tuberculosis screening: No symptoms or risk factors identified. Assessment: 14:58 Reassessment: see triage assessment. mb9 16:42 Reassessment: No changes from previously documented assessment. Patient and/or family mb9 updated on plan of care and expected duration. Pain level reassessed. Patient is alert, oriented x 3, equal unlabored respirations, skin warm/dry/pink. Vital Signs: 14:54 BP 124 / 43; Pulse 50; Resp 15; Temp 98; Pulse Ox 96% on R/A; Weight 95.25 kg; Height 5 mb9 ft. 4 in. ; 16:03 BP 126 / 42; Pulse 51; Resp 15; Pulse Ox 99% on R/A; mb9 16:42 BP 137 / 42; Pulse 50; Resp 18; Pulse Ox 100% on R/A; mb9 17:11 BP 128 / 61; Pulse 57; Resp 18; Pulse Ox 100% on R/A; mb9 14:54 Body Mass Index 36.05 (95.25 kg, 162.56 cm) mb9 ED Course: 14:27 Patient arrived in ED. bd 14:31 Anai Becerril MD is Attending Physician. sd2 14:51 Gloria Mcdermott, RN is Primary Nurse. mb9 14:52 Arm band placed on. mb9 14:52 Placed in gown. Bed in low position. Call light in reach. Side rails up X 1. Provided mb9 Education on: press call light if needing anything. Client placed on continuous cardiac and pulse oximetry monitoring. NIBP monitoring applied. cafeteria monitor on. 14:57 Triage completed. mb9 14:58 No provider procedures requiring assistance completed. mb9 15:00 EKG done, by ED staff, reviewed by Anai Becerril MD. mb9 15:17 XRAY Chest (1 view) In Process Unspecified. EDMS 15:35 Initial lab(s) drawn, by me, sent to lab. Inserted saline lock: 22 gauge in right hand, mb9 using aseptic technique. Blood collected. Flushed with 10 mL NS. 17:02 Kulwinder Ledezma MD is Referral Physician. sd2 17:11 IV discontinued, intact, bleeding controlled, No redness/swelling at site. Pressure mb9 dressing applied. Administered Medications: No medications were administered Medication: 14:58 VIS not applicable for this client. mb9 Outcome: 17:03 Discharge ordered by . sd2 17:11 Discharged to home via wheelchair, with family, mb9 17:11 Condition: stable 17:11 Discharge instructions given to patient, family, Instructed on discharge instructions, follow up and referral plans. Demonstrated understanding of instructions, follow-up care, 17:11 Patient left the ED. mb9 Signatures: Dispatcher [employer] EDMS Yomaira Montgomery Anai Becerril MD MD sd2 Gloria Mcdermott, RN RN mb9 Corrections: (The following items were deleted from the chart) 15:09 14:54 Acuity: MEI 3 mb9 mb9 15:35 14:57 Neuro: Sims Agitation-Sedation Scale (RASS): 0 - Alert and Calm Level of mb9 Consciousness is awake, alert, obeys commands, Oriented to person, place, time, situation, Appropriate for age mb9
--- NOTE | 2023-11-23 17:03 | EDPHYS ---
Physician Documentation [facility] Name: Magalis Haywood Age: 63 yrs Sex: Female : 1960 Arrival Date: 11/23/2023 Time: 14:24 Bed 13 Private MD: ED Physician Anai Becerril HPI: 11/22 15:09 This 63 yrs old Female presents to ER via EMS with complaints of chest pain. 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 She had 7-8 mins left of her dialysis when it started. No associated SOB, nausea or vomiting. Initially reported 8/10 chest pain improved to 3/10 upon EMS arrival and very little currently at time of my evaluation. 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 Historical: - Allergies: 15:09 No Known Allergies; mb9 - Home Meds: 14:51 senna 8.6 mg Oral capsule 1 cap 2 times per day [Active]; Lasix 80 mg Oral tablet 1 tab mb9 daily [Active]; losartan 25 mg Oral tablet 2 tabs daily [Active]; isosorbide mononitrate 30 mg Oral Tablet [Active]; aspirin 81 mg Oral tablet [Active]; carvedilol 25 mg Oral tablet 1 tab 2 times per day [Active]; acetaminophen-codeine 300-30 mg Oral tablet [Active]; - PMHx: 14:51 diabetes mellitus; End stage renal disease; Hypertensive disorder; mb9 - PSHx: 14:51 None; mb9 - Immunization history:: Adult Immunizations up to date. - Infectious Disease History:: Denies. - Social history:: Smoking status: Patient denies any tobacco usage or history of. ROS: 15:09 Constitutional: Negative for fever, chills, and weight loss, Eyes: Negative for injury, sd2 pain, redness, and discharge, 15:09 Respiratory: Negative for shortness of breath, cough, wheezing. Abdomen/GI: Negative for abdominal pain, nausea, vomiting, diarrhea. MS/Extremity: Negative for injury and deformity, Skin: Negative for injury, rash, and discoloration, Neuro: Negative for headache, numbness and tingling. 15:09 Cardiovascular: Positive for chest pain, Negative for edema, palpitations, Exam: 15:09 Constitutional: This is a well developed, well nourished patient who is awake, alert, sd2 and in no acute distress. Head/Face: Normocephalic, atraumatic. Eyes: EOMI, normal conjunctiva bilaterally Chest/axilla: Normal chest wall appearance and motion. Nontender with no deformity. Cardiovascular: Regular rate and rhythm with a normal S1 and S2. No gallops, murmurs, or rubs. 2+ distal pulses. L mid anterior chest wall tenderness reproducible with no associated crepitus Respiratory: Lungs have equal breath sounds bilaterally, clear to auscultation and percussion. No rales, rhonchi or wheezes noted. No increased work of breathing, no retractions or nasal flaring. Abdomen/GI: Soft, non-tender, with normal bowel sounds. No guarding or rebound. No evidence of tenderness throughout. Skin: Warm, dry with normal turgor. Normal color with no rashes, no lesions, and no evidence of cellulitis. MS/ Extremity: Pulses equal, no cyanosis. Neurovascular intact. Full, normal range of motion. Psych: Awake, alert, with orientation to person, place and time. Behavior, mood, and affect are within normal limits. 15:51 ECG was reviewed by the Attending Physician. Sinus bradycardia, rate 50, no STEMI sd2 criteria, TWIs in lateral leads, V5 and V6, no significant change compared to prior EKG 10/25/22 Vital Signs: 14:54 BP 124 / 43; Pulse 50; Resp 15; Temp 98; Pulse Ox 96% on R/A; Weight 95.25 kg; Height 5 mb9 ft. 4 in. ; 16:03 BP 126 / 42; Pulse 51; Resp 15; Pulse Ox 99% on R/A; mb9 16:42 BP 137 / 42; Pulse 50; Resp 18; Pulse Ox 100% on R/A; mb9 17:11 BP 128 / 61; Pulse 57; Resp 18; Pulse Ox 100% on R/A; mb9 14:54 Body Mass Index 36.05 (95.25 kg, 162.56 cm) mb9 MDM: 14:31 Patient medically screened. sd2 15:09 Differential Diagnosis ACS, dissection, PE, gastritis, anxiety, MSK among others. Data sd2 reviewed: vital signs, nurses notes, EMS record, lab test result(s), EKG, radiologic studies. Historians other than the Patient: EMS: provides initial report. Care significantly affected by the following chronic conditions: Diabetes, Hypertension, Chronic Kidney Disease. 17:00 Counseling: I had a detailed discussion with the patient and/or guardian regarding the sd2 historical points, exam findings, and any diagnostic results supporting the discharge/admit diagnosis, lab results, radiology results, the need for outpatient follow up, to return to the emergency department if symptoms worsen or persist or if there are any questions or concerns that arise at home. ED course: Pt relates complete resolution of chest pain and is resting comfortably at time of my repeat evaluation. She reports seeing a business development specialist in [place] less than a year ago with a negative stress test at that time and that she has chest pain fairly regularly after dialysis and this is not a new occurrence. She also has known bradycardia which she saw the business development specialist for as well. She has no new complaints at this time. EKG is unchanged compared to previous. Trop neg. BNP elevated but improved compared to prior levels and likely 2/2 patient's dialysis status. Pt comfortable with plan for discharge and outpatient follow up with PCP and cardiology. Verbalizes understanding of strict return precautions.. 11/22 14:37 Order name: CBC with Diff; Complete Time: 16:12 sd2 11/22 14:37 Order name: CMP; Complete Time: 16:16 sd2 11/22 14:37 Order name: Magnesium; Complete Time: 16:16 sd2 11/22 14:37 Order name: Troponin High Sensitivity; Complete Time: 16:16 sd2 11/22 14:37 Order name: BNP; Complete Time: 16:16 sd2 11/22 14:37 Order name: XRAY Chest (1 view); Complete Time: 15:37 sd2 11/22 14:37 Order name: EKG - Nurse/Tech; Complete Time: 15:09 sd2 Administered Medications: No medications were administered Disposition Summary: 11/23/23 17:03 Discharge Ordered Problem: an acute exacerbation sd2 Symptoms: are resolved sd2 Condition: Stable sd2 Diagnosis - Nonspecific chest pain sd2 - Fluid overload sd2 - ESRD on dialysis sd2 Followup: sd2 - With: Private Physician - When: 2 - 3 days - Reason: Recheck today's complaints, Continuance of care, Re-evaluation by your physician Followup: sd2 - With: Kulwinder Ledezma MD - When: 2 - 3 days - Reason: Recheck today's complaints, Continuance of care Discharge Instructions: - Discharge Summary Sheet sd2 - Nonspecific Chest Pain, Adult sd2 Forms: - Medication Reconciliation Form sd2 - Antibiotic Education sd2 - Prescription Opioid Use sd2 - Patient Portal Instructions sd2 - Leadership Thank You Letter sd2 Signatures: Dispatcher [employer] Anai Walden MD MD sd2 Gloria Mcdermott RN RN mb9 Corrections: (The following items were deleted from the chart) 16:02 15:51 ECG was reviewed by the Attending Physician. Sinus bradycardia, rate 50, no STEMI sd2 criteria, TWIs in lateral leads, V5 and V6 sd2
[2023-11-23 21:31] VITALS: TEMP 98
[2023-11-23 21:46] VITALS: O2SAT 100
[2023-11-23 21:48] VITALS: BP 128/61
--- NOTE | 2023-11-25 13:36 | EKG ---
Test Date: 2023-11-23 Test Time: 15:05:15 Forestry Professor: MB MEASUREMENT RESULTS: Intervals: Rate: 50 IN: 160 QRSD: 110 QT: 482 QTc: 439 [place]: P: 31 IN: 160 QRS: -38 T: 56 INTERPRETIVE STATEMENTS: Sinus bradycardia Left axis deviation Minimal voltage criteria for LVH, may be normal variant ST & T wave abnormality, consider lateral ischemia Abnormal ECG Compared to ECG 10/25/2022 10:46:50 ST (T wave) deviation now present Possible ischemia now present Sinus rhythm no longer present Early repolarization no longer present Electronically Signed On 11-25-23 13:32:03 CDT by Kulwinder Ledezma
== END 2023-11-23 17:11 | disposition home or self-care (01) ==
LOC: ER 14:24
DX: R07.9 Chest pain, unspecified (principal); E87.70 Fluid overload, unspecified; E11.22 Type 2 diabetes mellitus with diabetic chronic kidney disease; I12.0 Hypertensive chronic kidney disease with stage 5 chronic kidney disease or end stage renal disease; N18.6 End stage renal disease; Z99.2 Dependence on renal dialysis
CPT/HCPCS: 36415; 71045; 80053; 83735; 83880; 84484; 85025; 93005; 99284